=== PATIENT | female | born 1940 | race Caucasian/White ===

== ENCOUNTER 2021-03-14 09:35 | Inpatient (IN) | payer MEDICARE ==
--- NOTE | 2021-03-14 10:01 | ED ---
General Adult HPI - General Chief complaint: Shortness of Breath Stated complaint: SOB Time Seen by Provider: 03/14/21 09:36 Source: patient, EMS, RN notes reviewed, old records reviewed Mode of arrival: EMS Limitations: no limitations - History of Present Illness Initial comments: 80-year-old female presenting for evaluation of dyspnea. Patient was brought in from retirement. She is currently being treated for cellulitis of recent pacemaker site and bilateral lower extremities. She denies fever or chest pain. She states she was at an outside hospital and had pacemaker placed approximately one week ago. - Related Data Home Medications Medication Instructions Recorded Confirmed Aspirin EC [Ecotrin Low Dose] 81 mg PO DAILY@0900 03/14/21 03/14/21 Atorvastatin [Lipitor] 20 mg PO HS@209903/14/21 03/14/21 Bumetanide [Bumex] 1 mg PO BID@0900,209903/14/21 03/14/21 Clindamycin HCl 300 mg PO TID@0600,1400,2200 03/14/21 03/14/21 Clopidogrel [Plavix] 75 mg PO DAILY@0900 03/14/21 03/14/21 Collagenase [Santyl] 1 applic TOPICAL Q12H 03/14/21 03/14/21 Donepezil [Aricept] 10 mg PO HS@209903/14/21 03/14/21 HYDROcodone/APAP 5-325MG [[place] 1 tab PO Q4HR PRN 03/14/21 03/14/21 5-325] Isosorbide Mononitrate ER [Imdur] 30 mg PO DAILY@0900 03/14/21 03/14/21 Levofloxacin [Levaquin] 500 mg PO HS@209903/14/21 03/14/21 Losartan Potassium [Cozaar] 25 mg PO DAILY@0900 03/14/21 03/14/21 Magnesium Oxide 400 mg PO DAILY@0900 03/14/21 03/14/21 Potassium Chloride ER [K-Dur 10] 10 meq PO DAILY@0900 03/14/21 03/14/21 carvediloL [Coreg] 3.125 mg PO BID@0900,2100 03/14/21 03/14/21 diphenhydrAMINE [Benadryl] 25 mg PO Q6H PRN 03/14/21 03/14/21 glipiZIDE [Glucotrol] 5 mg PO DAILY@0900 03/14/21 03/14/21 Allergies Allergy/AdvReac Type Severity Reaction Status Date / Time Sulfa (Sulfonamide Allergy Anaphylaxis Verified 03/14/21 09:49 Antibiotics) Review of Systems ROS Statement: Those systems with pertinent positive or pertinent negative responses have been documented in the HPI. ROS Other: All systems not noted in ROS Statement are negative. Past Medical History Past Medical History: Diabetes Mellitus, Hypertension History of Any Multi-Drug Resistant Organisms: None Reported Past Surgical History: Pacemaker Past Psychological History: No Psychological Hx Reported Smoking Status: Never smoker Past Alcohol Use History: None Reported Past Drug Use History: None Reported General Exam Limitations: no limitations General appearance: alert, in no apparent distress Head exam: Present: atraumatic, normocephalic Eye exam: Present: normal appearance, PERRL ENT exam: Present: normal exam Neck exam: Present: normal inspection. Absent: tenderness, meningismus Respiratory exam: Present: rales. Absent: respiratory distress Cardiovascular Exam: Present: regular rate, normal rhythm, systolic murmur GI/Abdominal exam: Present: soft. Absent: distended, tenderness, guarding Extremities exam: Present: pedal edema Neurological exam: Present: alert, oriented X3 Psychiatric exam: Present: normal affect, normal mood Skin exam: Present: warm, dry Course Vital Signs 03/14/21 09:36 Temperature 97.6 F Pulse Rate 78 Respiratory 18 Rate Blood Pressure 110/69 O2 Sat by Pulse 96 Oximetry EKG Findings - EKG Comments: EKG Findings:: EKG: Sinus rhythm rate of 75 MA interval 152, QRS duration is wide at 138, QTC 504 no old for comparison. Medical Decision Making - Medical Decision Making 80-year-old female who presented with dyspnea, bilateral lower extremity swel ling. Patient had recent pacemaker placed. Chest x-ray showing concern for CHF with very large cardiomegaly. Echo has been ordered. Patient has a normal CBC, she has a hyponatremia 125. Negative troponin, elevated BNP at 14,000. Her coronavirus testing is negative. She's given IV diuresis in the emergency department. Case discussed with She will admit. Cardiology placed on consult. - Lab Data Result diagrams: 03/14/21 09:58 03/14/21 09:58 Lab Results 03/14/21 03/14/21 03/14/21 Range/Units 09:58 09:58 09:58 WBC 6.9 (3.8-10.6) k/uL RBC 4.25 (3.80-5.40) m/uL Hgb 13.0 (11.4-16.0) gm/dL Hct 39.7 (34.0-46.0) % MCV 93.5 (80.0-100.0) fL MCH 30.7 (25.0-35.0) pg MCHC 32.8 (31.0-37.0) g/dL RDW 14.7 (11.5-15.5) % Plt Count 253 (150-450) k/uL MPV 7.9 Neutrophils % 78 % Lymphocytes % 14 % Monocytes % 6 % Eosinophils % 1 % Basophils % 0 % Neutrophils # 5.3 (1.3-7.7) k/uL Lymphocytes # 0.9 L (1.0-4.8) k/uL Monocytes # 0.4 (0-1.0) k/uL Eosinophils # 0.1 (0-0.7) k/uL Basophils # 0.0 (0-0.2) k/uL PT 11.7 (9.0-12.0) sec INR 1.1 (<1.2) APTT 23.9 (22.0-30.0) sec Sodium 125 L (137-145) mmol/L Potassium 4.6 (3.5-5.1) mmol/L Chloride 92 L (98-107) mmol/L Carbon Dioxide 28 (22-30) mmol/L Anion Gap 5 mmol/L BUN 21 H (7-17) mg/dL Creatinine 0.77 (0.52-1.04) mg/dL Est GFR (CKD-EPI)AfAm 86 (>60 ml/min/1.73 sqM) Est GFR (CKD-EPI)NonAf 74 (>60 ml/min/1.73 sqM) Glucose 215 H (74-99) mg/dL Plasma Lactic Acid Clem (0.7-2.0) mmol/L Calcium 8.7 (8.4-10.2) mg/dL Total Bilirubin 1.0 (0.2-1.3) mg/dL AST 26 (14-36) U/L ALT 20 (4-34) U/L Alkaline Phosphatase 208 H (38-126) U/L Troponin I (0.000-0.034) ng/mL NT-Pro-B Natriuret Pep pg/mL Total Protein 5.6 L (6.3-8.2) g/dL Albumin 2.5 L (3.5-5.0) g/dL Coronavirus (PCR) (Not Detectd) 03/14/21 03/14/21 03/14/21 Range/Units 09:58 09:58 09:58 WBC (3.8-10.6) k/uL RBC (3.80-5.40) m/uL Hgb (11.4-16.0) gm/dL Hct (34.0-46.0) % MCV (80.0-100.0) fL MCH (25.0-35.0) pg MCHC (31.0-37.0) g/dL RDW (11.5-15.5) % Plt Count (150-450) k/uL MPV Neutrophils % % Lymphocytes % % Monocytes % % Eosinophils % % Basophils % % Neutrophils # (1.3-7.7) k/uL Lymphocytes # (1.0-4.8) k/uL Monocytes # (0-1.0) k/uL Eosinophils # (0-0.7) k/uL Basophils # (0-0.2) k/uL PT (9.0-12.0) sec INR (<1.2) APTT (22.0-30.0) sec Sodium (137-145) mmol/L Potassium (3.5-5.1) mmol/L Chloride (98-107) mmol/L Carbon Dioxide (22-30) mmol/L Anion Gap mmol/L BUN (7-17) mg/dL Creatinine (0.52-1.04) mg/dL Est GFR (CKD-EPI)AfAm (>60 ml/min/1.73 sqM) Est GFR (CKD-EPI)NonAf (>60 ml/min/1.73 sqM) Glucose (74-99) mg/dL Plasma Lactic Acid Clem 1.1 (0.7-2.0) mmol/L Calcium (8.4-10.2) mg/dL Total Bilirubin (0.2-1.3) mg/dL AST (14-36) U/L ALT (4-34) U/L Alkaline Phosphatase (38-126) U/L Troponin I 0.017 (0.000-0.034) ng/mL NT-Pro-B Natriuret Pep 44445 pg/mL Total Protein (6.3-8.2) g/dL Albumin (3.5-5.0) g/dL Coronavirus (PCR) (Not Detectd) 03/14/21 Range/Units 10:05 WBC (3.8-10.6) k/uL RBC (3.80-5.40) m/uL Hgb (11.4-16.0) gm/dL Hct (34.0-46.0) % MCV (80.0-100.0) fL MCH (25.0-35.0) pg MCHC (31.0-37.0) g/dL RDW (11.5-15.5) % Plt Count (150-450) k/uL MPV Neutrophils % % Lymphocytes % % Monocytes % % Eosinophils % % Basophils % % Neutrophils # (1.3-7.7) k/uL Lymphocytes # (1.0-4.8) k/uL Monocytes # (0-1.0) k/uL Eosinophils # (0-0.7) k/uL Basophils # (0-0.2) k/uL PT (9.0-12.0) sec INR (<1.2) APTT (22.0-30.0) sec Sodium (137-145) mmol/L Potassium (3.5-5.1) mmol/L Chloride (98-107) mmol/L Carbon Dioxide (22-30) mmol/L Anion Gap mmol/L BUN (7-17) mg/dL Creatinine (0.52-1.04) mg/dL Est GFR (CKD-EPI)AfAm (>60 ml/min/1.73 sqM) Est GFR (CKD-EPI)NonAf (>60 ml/min/1.73 sqM) Glucose (74-99) mg/dL Plasma Lactic Acid Clem (0.7-2.0) mmol/L Calcium (8.4-10.2) mg/dL Total Bilirubin (0.2-1.3) mg/dL AST (14-36) U/L ALT (4-34) U/L Alkaline Phosphatase (38-126) U/L Troponin I (0.000-0.034) ng/mL NT-Pro-B Natriuret Pep pg/mL Total Protein (6.3-8.2) g/dL Albumin (3.5-5.0) g/dL Coronavirus (PCR) Not Detected (Not Detectd) Disposition Clinical Impression: Congestive heart failure, Cardiomegaly Disposition: ADMITTED IP TO THIS HOSP Condition: Stable Is patient prescribed a controlled substance at d/c from ED?: No Referrals: Faraz Loza MD [STAFF PHYSICIAN] - 1-2 days Decision to Admit Reason: Admit from EC Decision Date: 03/14/21 Decision Time: 12:13
--- NOTE | 2021-03-14 10:40 | XR ---
EXAMINATION TYPE: XR chest 2V DATE OF EXAM: 03/14/2021 COMPARISON: NONE HISTORY: Shortness of breath TECHNIQUE: Frontal and lateral views of the chest are obtained. FINDINGS: Overlying sternal wires and mediastinal clips are present. There is significant cardiomeg glen with dual lead pacemaker/defibrillator. There are small right greater than left pleural effusions and mild interstitial edema. The osseous structures are somewhat demineralized. IMPRESSION: Findings consistent with CHF exacerbation as detailed above.
[2021-03-14 11:18] LABS: Albumin 2.5 g/dL (3.5-5.0); Basophils % (A) 0 %; Calcium 8.7 mg/dL (8.4-10.2); Eosinophils # (A) 0.1 k/uL (0-0.7); Eosinophils % (A) 1 %; HCT 39.7 % (34.0-46.0); Lymphocytes # (A) 0.9 k/uL (1.0-4.8); Lymphocytes % (A) 14 %; MCH 30.7 pg (25.0-35.0); MCHC 32.8 g/dL (31.0-37.0); MCV 93.5 fL (80.0-100.0); Mean Platelet Volume 7.9; Monocytes # (A) 0.4 k/uL (0-1.0); Monocytes % (A) 6 %; Neutrophils # (A) 5.3 k/uL (1.3-7.7); Neutrophils % (A) 78 %; Platelet Count 253 k/uL (150-450); Potassium 4.6 mmol/L (3.5-5.1); RBC 4.25 m/uL (3.80-5.40); RDW 14.7 % (11.5-15.5); Total Protein 5.6 g/dL (6.3-8.2); WBC 6.9 k/uL (3.8-10.6)
[2021-03-14 11:29] LABS: INR 1.1 (<1.2); Partial Thromboplastin Time 23.9 sec (22.0-30.0); Prothrombin Time 11.7 sec (9.0-12.0)
[2021-03-14] MEDS ORDERED: FUROSEMIDE 10 MG/ML 4 ML VIAL IV STA (11:48)
[2021-03-14] MEDS ORDERED: ACETAMINOPHEN TAB 325 MG TAB PO PRN (12:07)
[2021-03-14] MEDS ORDERED: NALOXONE 0.4 MG/ML 1 ML VIAL IV PRN (12:07)
[2021-03-14] MEDS ORDERED: MAG HYDROX/AL HYDROX/SIMETH 30 ML CUP PO PRN (12:54)
[2021-03-14] MEDS ORDERED: LACTULOSE 20 GM/30 ML CUP PO PRN (12:54)
[2021-03-14] MEDS ORDERED: CALCIUM CARBONATE 500 MG CHEWABLE PO PRN (12:54)
[2021-03-14] MEDS ORDERED: MAGNESIUM HYDROXIDE 2,400 MG/10 ML CUP PO PRN (12:54)
[2021-03-14] MEDS ORDERED: ONDANSETRON 4 MG/2 ML VIAL IVP PRN (12:54)
[2021-03-14] MEDS ORDERED: MELATONIN 3 MG TABLET PO PRN (12:54)
--- NOTE | 2021-03-14 13:57 | P.CRDCN ---
History of Present Illness History of present illness: HISTORY OF PRESENTING ILLNESS This is a pleasant 80-year-old female past medical history significant for coronary disease status post three-vessel CABG (about 10 years ago, unknown exact details), myocardial infarction, congestive heart failure, hypertension, dyslipidemia, type 2 diabetes, cardiomyopathy status post AICD BiV pacer implantation October/November 2020, bronchitis. She follows with Dr. Guo. We have been asked to see in consultation for congestive heart failure. She recently pre sented to [facility] about a week ago, with Bilateral lower extremity cellulitis, non-healing LE extremity ulcer, per daughter she underwent a procedure to clean out the wound she received increased IV fluids, her diuretic was not restarted. She was discharged to rehab after this admission. She also has Cellulitis of her pacemaker. She presents from Rehab with worsening shortness of breath, edema and orthopnea. Patient states she's had been having worsening shortness of breath since her discharge for [facility]. She is unable to lie flat to sleep at night and she also has been having worsening bilateral lower extremity and upper extremity edema. She denies any chest pain, lightheadedness, dizziness, symptoms of presyncope or syncope. She denies history of asthma or COPD. Denies history of stroke. Denies tobacco use, or alcohol use. DIAGNOSTICS EKG reveals sinus mechanism, PVC, HR 74, anterior lateral ST changes prior infarct. No prior EKG to compare Telemetry tracings indicate sinus mechanism HR 70s Chest xray congestive heart failure. Defibrillator, BiV pacemaker seen. Laboratory reviewed, sodium 125, potassium 4.6, BUN 21, serum creatinine 0.7, proBNP 14,700, troponin negative 1, COVID-19 PCR negative Current home medications include aspirin 81 mg daily, atorvastatin 20 mg nightly, Bumex 1 mg twice a day, Plavix 75 mg daily, Imdur 30 mg daily, losartan 25 mg daily, magnesium oxide 400 mg daily, potassium chloride 10 mEq daily, carvedilol 3.125 mg twice a day, glipizide, Aricept, clindamycin. REVIEW OF SYSTEMS At the time of my exam: CONSTITUTIONAL: Denies fever or chills. CARDIOVASCULAR: +shortness of breath +orthopnea +edema Denies chest pain or palp itations. RESPIRATORY: Denies cough. GASTROINTESTINAL: Denies abdominal pain, diarrhea, constipation, nausea or vomiting. MUSCULOSKELETAL: Denies myalgias. NEUROLOGIC: Denies numbness, tingling, headacbe or weakness. ENDOCRINE: Denies fatigue, weight change, polydipsia or polyurina. GENITOURINARY: Denies burning, hematuria or urgency with micturation. HEMATOLOGIC: Denies history of anemia or bleeding. PHYSICAL EXAMINATION Blood pressure 100/90 HR 77, afebrile, 98% room air CONSTITUTIONAL: No apparent distress. HEENT: Head is normocephalic. Pupils are equal, round. Sclerae anicteric. Mucous membranes of the mouth are moist. No JVD. CHEST EXAMINATION: Lungs are crackles in bases to auscultation. No chest wall tenderness is noted on palpation or with deep breathing. HEART EXAMINATION: Regular rate and rhythm. S1, S2 heard. Systolic ejection murmur at base. ABDOMEN: Soft, nontender. Positive bowel sounds. EXTREMITIES: 2-3+ bilateral lower extremity edema, 2+ bilateral upper extremity edema SKIN: Bilateral lower extremity calves and feet covered in ara bandages NEUROLOGIC EXAMINATION: Patient is awake, alert and oriented x3. ASSESSMENT Acute systolic heart failure exacerbation Ischemic cardiomyopathy s/p BiV pacemaker implantation Coronary disease status post three-vessel CABG (about 10 years ago, unknown exact details) History of myocardial infarction unknown details History of Hypertension Dyslipidemia Type 2 diabetes PLAN Obtain 2D echocardiogram Continue IV Lasix 40mg Q8hr Monitor renal function and electrolytes I/Os, daily weights Continue patient's home cardiac medications aspirin, statin, carvedilol, Plavix, Imdur, Losartan We will obtain records from [facility] and with Dr. Guo's office. Further recommendations based on clinical course Nurse Practitioner note has been reviewed, I agree with a documented findings and plan of care. Patient was seen and examined. Past Medical History Past Medical History: Diabetes Mellitus, Hypertension History of Any Multi-Drug Resistant Organisms: None Reported Past Surgical History: Pacemaker Past Psychological History: No Psychological Hx Reported Smoking Status: Never smoker Past Alcohol Use History: None Reported Past Drug Use History: None Reported Medications and Allergies Home Medications Medication Instructions Recorded Confirmed Type Aspirin EC [Ecotrin Low Dose] 81 mg PO DAILY@0900 03/14/21 03/14/21 History Atorvastatin [Lipitor] 20 mg PO HS@2100 03/14/21 03/14/21 History Bumetanide [Bumex] 1 mg PO BID@0900,2100 03/14/21 03/14/21 History Clindamycin HCl 300 mg PO TID@0600,1400,2200 03/14/21 03/14/21 History Clopidogrel [Plavix] 75 mg PO DAILY@0900 03/14/21 03/14/21 History Collagenase [Santyl] 1 applic TOPICAL Q12H 03/14/21 03/14/21 History Donepezil [Aricept] 10 mg PO HS@209903/14/21 03/14/21 History HYDROcodone/APAP 5-325MG [[place] 1 tab PO Q4HR PRN 03/14/21 03/14/21 History 5-325] Isosorbide Mononitrate ER [Imdur] 30 mg PO DAILY@0900 03/14/21 03/14/21 History Levofloxacin [Levaquin] 500 mg PO HS@209903/14/21 03/14/21 History Losartan Potassium [Cozaar] 25 mg PO DAILY@0900 03/14/21 03/14/21 History Magnesium Oxide 400 mg PO DAILY@0900 03/14/21 03/14/21 History Potassium Chloride ER [K-Dur 10] 10 meq PO DAILY@0900 03/14/21 03/14/21 History carvediloL [Coreg] 3.125 mg PO BID@0900,2100 03/14/21 03/14/21 History diphenhydrAMINE [Benadryl] 25 mg PO Q6H PRN 03/14/21 03/14/21 History glipiZIDE [Glucotrol] 5 mg PO DAILY@0900 03/14/21 03/14/21 History Allergies Allergy/AdvReac Type Severity Reaction Status Date / Time Sulfa (Sulfonamide Allergy Anaphylaxis Verified 03/14/21 09:49 Antibiotics) Physical Exam Vitals: Vital Signs Temp Pulse Resp BP Pulse Ox 03/14/21 12:55 77 18 100/90 98 03/14/21 09:36 97.6 F 78 18 110/69 96 Intake and Output 03/13/21 03/14/21 03/14/21 22:59 06:59 14:59 Other: Weight 58.967 kg Results 03/14/21 09:58 03/14/21 09:58 Cardiac Enzymes 03/14/21 03/14/21 Range/Units 09:58 09:58 AST 26 (14-36) U/L Troponin I 0.017 (0.000-0.034) ng/mL Coagulation 03/14/21 Range/Units 09:58 PT 11.7 (9.0-12.0) sec APTT 23.9 (22.0-30.0) sec CBC 03/14/21 Range/Units 09:58 WBC 6.9 (3.8-10.6) k/uL RBC 4.25 (3.80-5.40) m/uL Hgb 13.0 (11.4-16.0) gm/dL Hct 39.7 (34.0-46.0) % Plt Count 253 (150-450) k/uL Comprehensive Metabolic Panel 03/14/21 Range/Units 09:58 Sodium 125 L (137-145) mmol/L Potassium 4.6 (3.5-5.1) mmol/L Chloride 92 L (98-107) mmol/L Carbon Dioxide 28 (22-30) mmol/L BUN 21 H (7-17) mg/dL Creatinine 0.77 (0.52-1.04) mg/dL Glucose 215 H (74-99) mg/dL Calcium 8.7 (8.4-10.2) mg/dL AST 26 (14-36) U/L ALT 20 (4-34) U/L Alkaline Phosphatase 208 H (38-126) U/L Total Protein 5.6 L (6.3-8.2) g/dL Albumin 2.5 L (3.5-5.0) g/dL Current Medications Generic Name Dose Route Start Last Admin Trade Name Freq PRN Reason Stop Dose Admin Acetaminophen 650 mg 03/14/21 12:07 Acetaminophen Tab 325 Mg Tab PO Q6HR PRN Mild Pain or Fever > 100.5 Hydrocodone Bitart/Acetaminophen 1 each 03/14/21 12:52 Hydrocodone/Apap 5-325mg 1 Each Tab PO Q4HR PRN Pain Al Hydroxide/Mg Hydroxide 15 ml 03/14/21 12:54 Mag Hydrox/Al Hydrox/Simeth 30 Ml Cup PO Q6HR PRN Indigestion Alprazolam 0.25 mg 03/14/21 12:54 Alprazolam 0.25 Mg Tab PO Q6HR PRN Anxiety Aspirin 81 mg 03/15/21 09:00 Aspirin 81 Mg PO DAILY@0900 [facility] Atorvastatin Calcium 20 mg 03/14/21 21:00 Atorvastatin 20 Mg Tab PO HS@2100 [facility] Calcium Carbonate/Glycine 1,000 mg 03/14/21 12:54 Calcium Carbonate 500 Mg Chewable PO Q4HR PRN Dyspepsia Carvedilol 3.125 mg 03/14/21 21:00 Carvedilol 3.125 Mg Tab PO BID@0900,2100 [facility] Clopidogrel Bisulfate 75 mg 03/15/21 09:00 Clopidogrel 75 Mg Tab PO DAILY@0900 [facility] Collagenase 1 applic 03/14/21 21:00 Collagenase 250 Unit/Gm Ointment 30 Gm Tube TOPICAL Q12HR [facility] Protocol Donepezil HCl 10 mg 03/14/21 21:00 Donepezil 10 Mg Tab PO HS@2100 [facility] Furosemide 40 mg 03/14/21 16:00 Furosemide 10 Mg/Ml 4 Ml Vial IV Q8HR [facility] Insulin Aspart 0 unit 03/14/21 13:00 Insulin Aspart (Novolog) 100 Unit/Ml Vial SQ ACHS [facility] Protocol Isosorbide Mononitrate 30 mg 03/15/21 09:00 Isosorbide Mononitrate Er 30 Mg Tab.Er.24h PO DAILY@0900 [facility] Lactulose 20 gm 03/14/21 12:54 Lactulose 20 Gm/30 Ml Cup PO DAILY PRN Constipation Levofloxacin 500 mg 03/14/21 21:00 Levofloxacin 500 Mg Tab PO 03/15/21 21:01 HS@2100 [facility] Losartan Potassium 25 mg 03/15/21 09:00 Losartan 25 Mg Tab PO DAILY [facility] Magnesium Hydroxide 2,400 mg 03/14/21 12:54 Magnesium Hydroxide 2,400 Mg/10 Ml Cup PO DAILY PRN Constipation Magnesium Oxide 400 mg 03/15/21 09:00 Magnesium Oxide 400 Mg Tab PO DAILY@0900 [facility] Melatonin 3 mg 03/14/21 12:54 Melatonin 3 Mg Tablet PO HS PRN Insomnia Naloxone HCl 0.2 mg 03/14/21 12:07 Naloxone 0.4 Mg/Ml 1 Ml Vial IV Q2M PRN Opioid Reversal Ondansetron HCl 4 mg 03/14/21 12:54 Ondansetron 4 Mg/2 Ml Vial IVP Q8HR PRN Nausea And Vomiting Potassium Chloride 10 meq 03/15/21 09:00 Potassium Chloride Er 10 Meq Tab.Er.Prt PO DAILY@0900 [facility] Intake and Output 03/13/21 03/14/21 03/14/21 22:59 06:59 14:59 Other: Weight 58.967 kg Patient Weight 03/15/21 06:59 Weight 58.967 kg 03/14/21 09:58 03/14/21 09:58
[2021-03-14] MEDS ORDERED: CLINDAMYCIN HCL 300 MG PO SCH (14:00)
--- NOTE | 2021-03-14 17:12 | P.HPIM ---
History of Present Illness H&P Date: 03/14/21 Chief Complaint: Short of breath This is a pleasant 80-year-old patient who follows with cardiologistDr Schultz. Patient's currently a resident of [facility]. Chronic stable medical conditions include bulbi hypertension, pacemaker, diabetes, coronary artery disease with a bypass over 10 years ago. Patient was discharged from [facility] 5 days ago. She was therefore a left leg wound that was I&D 8 and discharged with clindamycin and Levaquin for 7 days. Patient has slight cognitive impairment and not too good for details. Her daughter is at the bedside. She was noticed to be increasingly short of breath. Significant edema in the lower extremity. Minimal cough. Decreased appetite. Patient always sits up and sleep. Patient has not had a bowel movement for last 7 days. Patient is rather tired. Review of systems: GEN.: Tired, decrease appetite EYES: None HEENT: None NECK: None RESPIRATORY: As above CARDIOVASCULAR: No chest pain GASTROINTESTINAL: [No BM for close to 7 days GENITOURINARY: None MUSCULOSKELETAL: Joint pains LYMPHATICS: None HEMATOLOGICAL: None PSYCHIATRY: Forgetful NEUROLOGICAL: None Past medical history to include: Pulmonary hypertension secondary, pacemaker, diabetes, CAD, left leg wound, cognitive impairment Social history: Currently getting rehab at [facility]. No smoking and no alcohol. Family history: Reviewed, noncontributory to presentation Physical examination: VITAL SIGNS: 97.6, 78, 18, 110/69, 96% room air GENERAL: 23.8, sitting up in bed, short of breath awake tired. EYES: Pupils equal. Conjunctiva normal. HEENT: External appearance of nose and ears normal, oral cavity grossly normal. NECK: JVDt raised; masses not palpable. HEART: [First and second heart sounds are normal; significant edema up to the thighs LUNGS:[ Respiratory rate increase; basal crackles. ABDOMEN: Soft, distended nontender, liver spleen not palpable, no masses palpable. PSYCH: Able to answer simple questions; mood and affect normal. MUSCULAR skeletal: Evidence of OA EXTREMITY: Wound or lower extremity. For dressing NEUROLOGICAL: Cranial nerves grossly intact; no facial asymmetry, power and sensation grossly intact. LYMPHATICS: No lymph nodes palpable in the axilla and neck INVESTIGATIONS, reviewed in the clinical context: WBC 6.9 hemoglobin 13 platelets 253 sodium 125 potassium 4.6 BUN 21 creatinine 0 .77 Albumin 2.5 proBNP 54704 Coronavirus [PCR]:not detected EKG tracing personally reviewed by me-no sinus rhythm, poor R-wave progression, intraventricular block and nonspecific ST segment changes Chest x-ray film personally reviewed by me-severe cardiomegaly suggestive of pericardial effusion, left pleural effusion Assessment and plan: -Acute on chronic congestive heart failure exacerbation. EF not known. From ischemic cardiomyopathy IV Lasix 40 mg every 8. Strict I's and O's. Daily weights. Sodium restriction. 2-D echocardiogram. Consult cardiology -Left pleural effusion secondary to CHF IV Lasix -CAD with a prior history of coronary bypass Aspirin, Lipitor, Coreg -Mild cognitive impairment likely from Alzheimer's dementia Follow clinically -Secondary pulmonary hypertension secondary to CHF Follow clinically -Permanent pacemaker -Diabetes mellitus type 2 on oral hypoglycemic Hold glyburide. Follow Accu-Cheks. -Left lower extremity wounds. On the left leg. Recently I indeed and currently on clindamycin and Levaquin. We'll consult ID for the same. IV Lasix 40 mg daily 8. Resume clindamycin and Levaquin. Home medications to be resumed. Strict I's and O's. Consult cardiology 90. Care was discussed with the patient and daughter the bedside. Questions answered. Given the complexity and severity of patient's condition expect the patient to be in the hospital at least for 2 overnights Past Medical History Past Medical History: Diabetes Mellitus, Hypertension History of Any Multi-Drug Resistant Organisms: None Reported Past Surgical History: Pacemaker Past Psychological History: No Psychological Hx Reported Smoking Status: Never smoker Past Alcohol Use History: None Reported Past Drug Use History: None Reported Medications and Allergies Home Medications Medication Instructions Recorded Confirmed Type Aspirin EC [Ecotrin Low Dose] 81 mg PO DAILY@0900 03/14/21 03/14/21 History Atorvastatin [Lipitor] 20 mg PO HS@209903/14/21 03/14/21 History Bumetanide [Bumex] 1 mg PO BID@0900,2100 03/14/21 03/14/21 History Clindamycin HCl 300 mg PO TID@0600,1400,2200 03/14/21 03/14/21 History Clopidogrel [Plavix] 75 mg PO DAILY@0900 03/14/21 03/14/21 History Collagenase [Santyl] 1 applic TOPICAL Q12H 10/26/21 10/26/21 History Donepezil [Aricept] 10 mg PO HS@2100 03/14/21 03/14/21 History HYDROcodone/APAP 5-325MG [Dinosaur 1 tab PO Q4HR PRN 03/14/21 03/14/21 History 5-325] Isosorbide Mononitrate ER [Imdur] 30 mg PO DAILY@0900 03/14/21 03/14/21 History Levofloxacin [Levaquin] 500 mg PO HS@2100 03/14/21 03/14/21 History Losartan Potassium [Cozaar] 25 mg PO DAILY@0900 03/14/21 03/14/21 History Magnesium Oxide 400 mg PO DAILY@0900 03/14/21 03/14/21 History Potassium Chloride ER [K-Dur 10] 10 meq PO DAILY@0900 03/14/21 03/14/21 History carvediloL [Coreg] 3.125 mg PO BID@0900,209903/14/21 03/14/21 History diphenhydrAMINE [Benadryl] 25 mg PO Q6H PRN 03/14/21 03/14/21 History glipiZIDE [Glucotrol] 5 mg PO DAILY@0900 03/14/21 03/14/21 History Allergies Allergy/AdvReac Type Severity Reaction Status Date / Time Sulfa (Sulfonamide Allergy Anaphylaxis Verified 03/14/21 09:49 Antibiotics) Physical Exam Vitals: Vital Signs Temp Pulse Resp BP Pulse Ox 03/14/21 16:00 74 18 127/71 96 03/14/21 12:55 77 18 100/90 98 03/14/21 09:36 97.6 F 78 18 110/69 96 Intake and Output 03/14/21 03/14/21 03/14/21 06:59 14:59 22:59 Other: Weight 58.967 kg Results CBC & Chem 7: 03/14/21 09:58 03/14/21 09:58 Labs: Abnormal Lab Results - Last 24 Hours (Table) 03/14/21 03/14/21 Range/Units 09:58 09:58 Lymphocytes # 0.9 L (1.0-4.8) k/uL Sodium 125 L (137-145) mmol/L Chloride 92 L (98-107) mmol/L BUN 21 H (7-17) mg/dL Glucose 215 H (74-99) mg/dL Alkaline Phosphatase 208 H (38-126) U/L Total Protein 5.6 L (6.3-8.2) g/dL Albumin 2.5 L (3.5-5.0) g/dL
[2021-03-14] MEDS ORDERED: LACTULOSE 20 GM/30 ML CUP PO ONE (17:15)
[2021-03-14] MEDS: INSULIN ASPART (NovoLOG) 100 UNIT/ML VIAL SQ SCH ×3 (17:43→20:13)
[2021-03-14] MEDS: FUROSEMIDE 10 MG/ML 4 ML VIAL IV SCH ×2 (19:15→22:42)
[2021-03-14 19:50] LABS: Glucose,Whole Blood 210 mg/dL (75-99)
[2021-03-14] MEDS: ATORVASTATIN 20 MG TAB PO SCH (20:13)
[2021-03-14] MEDS: carvediloL 3.125 MG TAB PO SCH (20:13)
[2021-03-14] MEDS: DONEPEZIL 10 MG TAB PO SCH (20:13)
[2021-03-14] MEDS: HYDROcodone/APAP 5-325MG 1 EACH TAB PO PRN (20:14)
[2021-03-14] MEDS ORDERED: FUROSEMIDE 10 MG/ML 4 ML VIAL IV SCH (21:00)
[2021-03-14] MEDS ORDERED: LEVOFLOXACIN 500 MG TAB PO SCH (21:00)
[2021-03-14] MEDS: COLLAGENASE 250 UNIT/GM OINTMENT 30 GM TUBE TOPICAL SCH (22:03)
[2021-03-15] MEDS: HYDROcodone/APAP 5-325MG 1 EACH TAB PO PRN ×3 (02:39→15:37)
[2021-03-15 06:16] LABS: Glucose,Whole Blood 124 mg/dL (75-99)
[2021-03-15] MEDS: INSULIN ASPART (NovoLOG) 100 UNIT/ML VIAL SQ SCH ×4 (06:24→20:50)
[2021-03-15 06:35] LABS: Calcium 8.8 mg/dL (8.4-10.2); Potassium 4.2 mmol/L (3.5-5.1)
--- NOTE | 2021-03-15 08:44 | ECHOF ---
Referral Reason:CHF, cardiomegaly MEASUREMENTS -------- HEIGHT: 157.5 cm WEIGHT: 59.0 kg BP: 110/69 RVIDd: 4.0 cm (< 3.3) IVSd: 1.2 cm (0.6 - 1.1) LVIDd: 5.8 cm (3.9 - 5.3) LVPWd: 1.1 cm (0.6 - 1.1) IVSs: 1.3 cm LVIDs: 4.9 cm LVPWs: 1.8 cm LA Diam: 4.4 cm (2.7 - 3.8) LAESV Index (A-L): 36.30 ml/m Ao Diam: 3.0 cm (2.0 - 3.7) AV Cusp: 1.6 cm (1.5 - 2.6) MV EXCURSION: 11.106 mm (> 18.000) MV EF SLOPE: 36 mm/s (70 - 150) EPSS: 2.4 cm MV E Marcel: 1.07 m/s MV DecT: 167 ms MV A Marcel: 0.97 m/s MV E/A Ratio: 1.11 AR PHT: 536 ms RAP: 5.00 mmHg RVSP: 45.38 mmHg FINDINGS -------- Paced rhythm. This was a technically good study. The left ventricular size is normal. There is borderline concentric left ventricular hypertrophy. Overall left ventricular systolic function is severely impaired with, an EF between 20 - 25 %. The right ventricle is moderately enlarged. LA is moderately dilated 34-39 ml/m2 The right atrium is normal in size. Interatrial and interventricular septum intact. There is mild aortic valve sclerosis. There is moderate aortic regurgitation. The mitral valve leaflets are mildly thickened. Mild mitral annular calcification present. Severe mitral regurgitation is present. Severe tricuspid regurgitation present. There is mild to moderate pulmonary hypertension. The rig ht ventricular systolic pressure, as measured by Doppler, is 45.38mmHg. Moderate pulmonic regurgitation. The aortic root size is normal. Normal inferior vena cava with normal inspiratory collapse consistent with estimated right atrial pre ssure of 5 mmHg. There is no pericardial effusion. CONCLUSIONS -------- 1. The left ventricular size is normal. 2. There is borderline concentric left ventricular hypertrophy. 3. Overall left ventricular systolic function is severely impaired with, an EF between 20 - 25 %. 4. The right ventricle is moderately enlarged. 5. LA is moderately dilated 34-39 ml/m2 6. There is mild aortic valve sclerosis. 7. There is moderate aortic regurgitation. 8. The mitral valve leaflets are mildly thickened. 9. Mild mitral annular calcification present. 10. Severe mitral regurgitation is present. 11. Severe tricuspid regurgitation present. 12. There is mild to moderate pulmonary hypertension. 13. The right ventricular systolic pressure, as measured by Doppler, is 45.38mmHg. 14. Moderate pulmonic regurgitation. 15. There is no pericardial effusion. PHOTO MASK PROCESSOR: Kathy Villela RDCS
[2021-03-15] MEDS: carvediloL 3.125 MG TAB PO SCH ×2 (09:06→20:46)
[2021-03-15] MEDS: ASPIRIN 81 MG PO SCH (09:06)
[2021-03-15] MEDS: POTASSIUM CHLORIDE ER 10 MEQ TAB.ER.PRT PO SCH (09:06)
[2021-03-15] MEDS: CLOPIDOGREL 75 MG TAB PO SCH (09:06)
[2021-03-15] MEDS: FUROSEMIDE 10 MG/ML 4 ML VIAL IV SCH ×3 (09:06→23:23)
[2021-03-15] MEDS: LOSARTAN 25 MG TAB PO SCH (09:06)
[2021-03-15] MEDS: MAGNESIUM OXIDE 400 MG TAB PO SCH (09:06)
[2021-03-15] MEDS: ISOSORBIDE MONONITRATE ER 30 MG TAB.ER.24H PO SCH (09:06)
[2021-03-15] MEDS: COLLAGENASE 250 UNIT/GM OINTMENT 30 GM TUBE TOPICAL SCH ×2 (09:07→20:53)
[2021-03-15 11:17] VITALS: BMI 30.3
[2021-03-15 11:31] LABS: Glucose,Whole Blood 188 mg/dL (75-99)
[2021-03-15] MEDS: NYSTATIN 100,000 UNIT/GM POWD 15 GM TOPICAL SCH ×2 (12:04→20:52)
[2021-03-15] MEDS: NYSTATIN 100,000UNIT/GM CREAM 30 GM TUBE TOPICAL SCH ×2 (12:04→20:52)
--- NOTE | 2021-03-15 12:42 | P.PN ---
Subjective This is a pleasant 80-year-old female past medical history significant for coronary disease status post three-vessel CABG (about 10 years ago, unknown exact details), myocardial infarction, congestive heart failure, hypertension, dyslipidemia, type 2 diabetes, ischemic cardiomyopathy status post BiV ICD pacer implantation November 22, 2020, bronchitis. She follows with Dr. Guo. We have been asked to see in consultation for congestive heart failure. She presents from Rehab with worsening shortness of breath, edema and orthopnea. Records obtained from [facility] patient has a known EF of 25%. Patient seen and examined at bedside, she states her breathing has improved. Echocardiogram revealed an EF of 2025 percent, moderate aortic regurgitation, severe mitral regurgitation, severe tricuspid location, mild to moderate pulmonary hypertension with an RVSP of 45 mmHg, moderate pulmonic regurgitation. Patient with 1.2. Urine output over the past 24 hours. She is currently maintained on IV Lasix 40 mg Q8hr, aspirin milligrams daily, atorvastatin 20 mg daily, carvedilol 3.125 mg twice a day, Plavix 75 mg daily, Imdur 30 mg daily, losartan 25 mg daily, potassium chloride 10meq daily. Labs reviewed patient sodium 128, potassium 4.2, BUN 19, serum creatinine 0.81. PHYSICAL EXAMINATION Blood pressure 112/69, heart 76, afebrile maintaining oxygen saturations 96% on room air CONSTITUTIONAL: No apparent distress. HEENT: Neck Supple. No JVD. CHEST EXAMINATION: Lungs are diminished in bases, mild crackles to auscultation. No chest wall tenderness is noted on palpation or with deep breathing. HEART EXAMINATION: Regular rate and rhythm. S1, S2 heard. Systolic ejection murmur at base. ABDOMEN: Soft, nontender. Positive bowel sounds. EXTREMITIES: 2+ bilateral lower extremity edema, 2+ bilateral upper extremity edema SKIN: Bilateral lower extremity calves and feet covered in ara bandages NEUROLOGIC EXAMINATION: Patient is awake, alert and oriented x2 ASSESSMENT Acute systolic heart failure exacerbation Ischemic cardiomyopathy s/p BiV pacemaker implantation 11/22/2020, known EF 25% Coronary disease status post three-vessel CABG (about 10 years ago, unknown exact details) History of myocardial infarction unknown details History of Hypertension Dyslipidemia Type 2 diabetes Bilateral lower extremity cellulitis Mitral valve insufficiency Moderate to severe pulmonary hypertension PLAN Continue IV Lasix 40mg Q8hr Monitor renal function and electrolytes I/Os, daily weights Continue patient's home cardiac medications aspirin, statin, carvedilol, Plavix, Imdur, Losartan Patient would benefit from starting a SGLT2 inhibitor Jardiance due to symptomatic heart failure. These medications are not available in the hospital currently, recommend starting as outpatient. Further recommendations based on clinical course Nurse Practitioner note has been reviewed, I agree with a documented findings and plan of care. Patient was seen and examined. Objective - Vital Signs Vital signs: Vital Signs Temp 97.6 F 03/15/21 11:46 Pulse 76 03/15/21 11:46 Resp 18 03/15/21 11:46 BP 112/69 03/15/21 11:46 Pulse Ox 96 03/15/21 11:46 Intake & Output 03/14/21 03/15/21 03/15/21 18:59 06:59 18:59 Intake Total 10 240 250 Output Total 1200 Balance 10 -960 250 Weight 58.967 kg 75.3 kg 75.3 kg Intake: IV 10 10 Invasive Line 1 10 10 Oral 240 240 Output: Urine 1200 Other: Voiding Method External Catheter External Catheter External Catheter # Voids 1 # Bowel Movements 1 1 - Labs CBC & Chem 7: 03/14/21 09:58 03/15/21 05:53 Labs: Abnormal Lab Results - Last 24 Hours (Table) 03/14/21 03/15/21 03/15/21 Range/Units 19:47 05:53 06:14 Sodium 128 L (137-145) mmol/L Chloride 94 L (98-107) mmol/L BUN 19 H (7-17) mg/dL Glucose 107 H (74-99) mg/dL POC Glucose (mg/dL) 210 H 124 H (75-99) mg/dL 03/15/21 Range/Units 11:29 Sodium (137-145) mmol/L Chloride (98-107) mmol/L BUN (7-17) mg/dL Glucose (74-99) mg/dL POC Glucose (mg/dL) 188 H (75-99) mg/dL
[2021-03-15 16:33] LABS: Glucose,Whole Blood 134 mg/dL (75-99)
--- NOTE | 2021-03-15 17:15 | P.PN ---
Progress Note - Text Progress Note Date: 03/15/21 Chief Complaint: Short of breath This is a pleasant 80-year-old patient who follows with cardiologistDr Schultz. Patient's currently a resident of [facility]. Chronic stable medical conditions include bulbi hypertension, pacemaker, diabetes, coronary artery disease with a bypass over 10 years ago. Patient was discharged from [facility] 5 days ago. She was therefore a left leg wound that was I&D 8 and discharged with clindamycin and Levaquin for 7 days. Patient has slight cognitive impairment and not too good for details. Her daughter is at the bedside. She was noticed to be increasingly short of breath. Significant edema in the lower extremity. Minimal cough. Decreased appetite. Patient always sits up and sleep. Patient has not had a bowel movement for last 7 days. Patient is rather tired. Admitted with CHF exacerbation, left pleural effusion. Started on IV Lasix. EF 20-25%. 03/15/2021: Sitting up in a recliner. Breathing a bit better. On IV Lasix. Good urine output. Some pain in the left lower extremity wound site. Does have [place] for the same. Discussed with the patient and daughter at length to avoid taking more narcotics. Review of systems: Was done for constitutional, cardiovascular, GI, pulmonary. relevant finding as above Active Medications Acetaminophen (Acetaminophen Tab 325 Mg Tab) 650 mg PO Q6HR PRN PRN Reason: Mild Pain or Fever > 100.5 Hydrocodone Bitart/Acetaminophen (Hydrocodone/Apap 5-325mg 1 Each Tab) 1 each PO Q4HR PRN PRN Reason: Pain Last Admin: 03/15/21 15:37 Dose: 1 each Documented by: Al Hydroxide/Mg Hydroxide (Mag Hydrox/Al Hydrox/Simeth 30 Ml Cup) 15 ml PO Q6HR PRN PRN Reason: Indigestion Alprazolam (Alprazolam 0.25 Mg Tab) 0.25 mg PO Q6HR PRN PRN Reason: Anxiety Aspirin (Aspirin 81 Mg) 81 mg PO DAILY@0900 [facility] Last Admin: 03/15/21 09:06 Dose: 81 mg Documented by: Atorvastatin Calcium (Atorvastatin 20 Mg Tab) 20 mg PO HS@2100 [facility] Last Admin: 03/14/21 20:13 Dose: 20 mg Documented by: Calcium Carbonate/Glycine (Calcium Carbonate 500 Mg Chewable) 1,000 mg PO Q4HR PRN PRN Reason: Dyspepsia Carvedilol (Carvedilol 3.125 Mg Tab) 3.125 mg PO BID@0900,2099 [facility] Last Admin: 03/15/21 09:06 Dose: 3.125 mg Documented by: Clopidogrel Bisulfate (Clopidogrel 75 Mg Tab) 75 mg PO DAILY@0900 [facility] Last Admin: 03/15/21 09:06 Dose: 75 mg Documented by: Collagenase (Collagenase 250 Unit/Gm Ointment 30 Gm Tube) 1 applic TOPICAL Q12HR [facility]; Protocol Last Admin: 03/15/21 09:07 Dose: 1 applic Documented by: Donepezil HCl (Donepezil 10 Mg Tab) 10 mg PO HS@2099 [facility] Last Admin: 03/14/21 20:13 Dose: 10 mg Documented by: Furosemide (Furosemide 10 Mg/Ml 4 Ml Vial) 40 mg IV Q8HR [facility] Last Admin: 03/15/21 15:41 Dose: 40 mg Documented by: Insulin Aspart (Insulin Aspart (Novolog) 100 Unit/Ml Vial) 0 unit SQ [facility]; Protocol Last Admin: 03/15/21 12:05 Dose: 2 unit Documented by: Isosorbide Mononitrate (Isosorbide Mononitrate Er 30 Mg Tab.Er.24h) 30 mg PO DAILY@899 [facility] Last Admin: 03/15/21 09:06 Dose: 30 mg Documented by: Lactulose (Lactulose 20 Gm/30 Ml Cup) 20 gm PO DAILY PRN PRN Reason: Constipation Levofloxacin (Levofloxacin 250 Mg Tab) 250 mg PO HS@2099 [facility] Stop: 03/16/21 23:00 Losartan Potassium (Losartan 25 Mg Tab) 25 mg PO DAILY [facility] Last Admin: 03/15/21 09:06 Dose: 25 mg Documented by: Magnesium Hydroxide (Magnesium Hydroxide 2,400 Mg/10 Ml Cup) 2,400 mg PO DAILY PRN PRN Reason: Constipation Magnesium Oxide (Magnesium Oxide 400 Mg Tab) 400 mg PO DAILY@09 [facility] Last Admin: 03/15/21 09:06 Dose: 400 mg Documented by: Melatonin (Melatonin 3 Mg Tablet) 3 mg PO HS PRN PRN Reason: Insomnia Last Admin: 03/14/21 20:19 Dose: 3 mg Documented by: Naloxone HCl (Naloxone 0.4 Mg/Ml 1 Ml Vial) 0.2 mg IV Q2M PRN PRN Reason: Opioid Reversal Nystatin (Nystatin 100,000unit/Gm Cream 30 Gm Tube) 1 applic TOPICAL BID [facility]; Protocol Last Admin: 03/15/21 12:04 Dose: 1 applic Documented by: Nystatin (Nystatin 100,000 Unit/Gm Powd 15 Gm) 1 applic TOPICAL BID [facility]; Protocol Last Admin: 03/15/21 12:04 Dose: 1 applic Documented by: Ondansetron HCl (Ondansetron 4 Mg/2 Ml Vial) 4 mg IVP Q8HR PRN PRN Reason: Nausea And Vomiting Potassium Chloride (Potassium Chloride Er 10 Meq Tab.Er.Prt) 10 meq PO DAILY@0900 [facility] Last Admin: 03/15/21 09:06 Dose: 10 meq Documented by: Past medical history to include: Pulmonary hypertension secondary, pacemaker, diabetes, CAD, left leg wound, cognitive impairment Social history: Currently getting rehab at [facility]. No smoking and no alcohol. Family history: Reviewed, noncontributory to presentation Physical examination: VITAL SIGNS: 97.6, 76, 18, 1 12 x 69, 96% room air GENERAL: Sitting up in a recliner, a bit less short of breath, more awake EYES: Pupils equal. Conjunctiva normal. HEENT: External appearance of nose and ears normal, oral cavity grossly normal. NECK: JVDt raised; masses not palpable. HEART: [First and second heart sounds are normal; significant edema up to the thighs LUNGS:[ Respiratory rate increase; basal crackles. ABDOMEN: Soft, distended nontender, liver spleen not palpable, no masses palpable. PSYCH: Able to answer simple questions; mood and affect normal. MUSCULAR skeletal: Evidence of OA EXTREMITY: Wound of lower extremity. With dressing INVESTIGATIONS, reviewed in the clinical context: March 15: Sodium 128 potassium 4.2 BUN 19 creatinine 0.81 2-D echocardiogram: EF 20-25%. Moderate aortic regurgitation. Severe mitral regurgitation. Severe tricuspid regurgitation. Moderate pulmonary hypertension. WBC 6.9 hemoglobin 13 platelets 253 sodium 125 potassium 4.6 BUN 21 creatinine 0.77 Albumin 2.5 proBNP 05846 Coronavirus [PCR]:not detected EKG tracing personally reviewed by me-no sinus rhythm, poor R-wave progression, intraventricular block and nonspecific ST segment changes Chest x-ray film personally reviewed by me-severe cardiomegaly suggestive of pericardial effusion, left pleural effusion Assessment and plan: -Acute on chronic congestive heart failure exacerbation. Systolic dysfunction EF 20-25% From ischemic cardiomyopathy: Slow to respond IV Lasix 40 mg every 8. Strict I's and O's. Daily weights. Sodium restriction. Follow with cardiology. Add Aldactone -Left pleural effusion secondary to CHF IV Lasix -Moderate aortic regurgitation, severe mitral regurgitation, severe tricuspid regurgitation Follow clinically -Secondary pulmonary hypertension secondary to CHF Follow clinically -CAD with a prior history of coronary bypass Aspirin, Lipitor, Coreg -Mild cognitive impairment likely from Alzheimer's dementia Follow clinically -Secondary pulmonary hypertension secondary to CHF Follow clinically -Permanent pacemaker -Diabetes mellitus type 2 on oral hypoglycemic Hold glyburide. Follow Accu-Cheks. -Hyponatremia Fluid restriction. Cutback on free fluid. -Left lower extremity wounds. On the left leg. Recently IND and currently on clindamycin and Levaquin. Follow with ID Continue IV Lasix 40 mg daily , clindamycin and Levaquin. Wound care per ID. Add Aldactone. Care was discussed with the patient and daughter the bedside.
[2021-03-15] MEDS: SPIRONOLACTONE 25 MG TAB PO SCH (17:53)
[2021-03-15 20:07] LABS: Glucose,Whole Blood 166 mg/dL (75-99)
[2021-03-15] MEDS: DONEPEZIL 10 MG TAB PO SCH (20:46)
[2021-03-15] MEDS: ATORVASTATIN 20 MG TAB PO SCH (20:47)
[2021-03-15] MEDS: LEVOFLOXACIN 250 MG TAB PO SCH (20:47)
[2021-03-16 05:58] LABS: Glucose,Whole Blood 99 mg/dL (75-99)
[2021-03-16] MEDS: INSULIN ASPART (NovoLOG) 100 UNIT/ML VIAL SQ SCH ×4 (06:04→20:49)
[2021-03-16 07:05] LABS: African American GFR (CKD) >90 (>60 ml/min/1.73 sqM); Anion Gap 8 mmol/L; Blood Urea Nitrogen 20 mg/dL (7-17); Carbon Dioxide 25 mmol/L (22-30); Chloride 95 mmol/L (98-107); Glucose 102 mg/dL (74-99); Magnesium 1.8 mg/dL (1.6-2.3); Non-African American GFR(CKD) 79 (>60 ml/min/1.73 sqM); Potassium 4.6 mmol/L (3.5-5.1); Sodium 128 mmol/L (137-145)
--- NOTE | 2021-03-16 08:32 | XR ---
EXAMINATION TYPE: XR chest 2V DATE OF EXAM: 03/16/2021 COMPARISON: Chest x-ray 2 03/14/2021 HISTORY: Congestive heart failure follow-up TECHNIQUE: Frontal and lateral views of the chest are obtained. FINDINGS: Findings are similar. There is blunting the posterior costophrenic angles, patient is post median sternotomy. Patient shows coronary artery stent, coronary artery calcification. Heart is enla rged. Generators present in left pectoral region, leads in right atrium and ventricle, coronary sinus . No evident pneumothorax. Patient is rotated. Interstitium and central vascularity mildly prominent. Arthropathy noted in the right shoulder. Aorta is dense. IMPRESSION: There may be a component of pulmonary venous hypertension and interstitial edema, basila r atelectasis versus edema, difficult to exclude pneumonia. Cardiomegaly. Suspect pleural effusion is present on the right.
[2021-03-16] MEDS: NYSTATIN 100,000UNIT/GM CREAM 30 GM TUBE TOPICAL SCH ×2 (08:58→20:50)
[2021-03-16] MEDS: SPIRONOLACTONE 25 MG TAB PO SCH (08:58)
[2021-03-16] MEDS: carvediloL 3.125 MG TAB PO SCH (08:58)
[2021-03-16] MEDS: CLOPIDOGREL 75 MG TAB PO SCH (08:58)
[2021-03-16] MEDS: MAGNESIUM OXIDE 400 MG TAB PO SCH (08:58)
[2021-03-16] MEDS: ISOSORBIDE MONONITRATE ER 30 MG TAB.ER.24H PO SCH (08:58)
[2021-03-16] MEDS: POTASSIUM CHLORIDE ER 10 MEQ TAB.ER.PRT PO SCH (08:58)
[2021-03-16] MEDS: LOSARTAN 25 MG TAB PO SCH (08:58)
[2021-03-16] MEDS: ASPIRIN 81 MG PO SCH (08:58)
[2021-03-16] MEDS: FUROSEMIDE 10 MG/ML 4 ML VIAL IV SCH ×2 (08:58→20:49)
[2021-03-16] MEDS: NYSTATIN 100,000 UNIT/GM POWD 15 GM TOPICAL SCH ×2 (08:59→20:50)
[2021-03-16] MEDS: COLLAGENASE 250 UNIT/GM OINTMENT 30 GM TUBE TOPICAL SCH ×2 (09:00→20:10)
--- NOTE | 2021-03-16 11:01 | P.PN ---
Progress Note - Text Progress Note Date: 03/16/21 Chief Complaint: Short of breath This is a pleasant 80-year-old patient who follows with cardiologistDr Schultz. Patient's currently a resident of [facility]. Chronic stable medical conditions include bulbi hypertension, pacemaker, diabetes, coronary artery disease with a bypass over 10 years ago. Patient was discharged from [facility] 5 days ago. She was therefore a left leg wound that was I&D 8 and discharged with clindamycin and Levaquin for 7 days. Patient has slight cognitive impairment and not too good for details. Her daughter is at the bedside. She was noticed to be increasingly short of breath. Significant edema in the lower extremity. Minimal cough. Decreased appetite. Patient always sits up and sleep. Patient has not had a bowel movement for last 7 days. Patient is rather tired. Admitted with CHF exacerbation, left pleural effusion. Started on IV Lasix. EF 20-25%. 03/15/2021: Sitting up in a recliner. Breathing a bit better. On IV Lasix. Good urine output. Some pain in the left lower extremity wound site. Does have [place] for the same. Discussed with the patient and daughter at length to avoid taking more narcotics. 03/16/2021: Breathing better. Decreased to IV Lasix 40 mg every 12. Eating about 25%-50%. Review of systems: Was done for constitutional, cardiovascular, GI, pulmonary. relevant finding as above Active Medications Acetaminophen (Acetaminophen Tab 325 Mg Tab) 650 mg PO Q6HR PRN PRN Reason: Mild Pain or Fever > 100.5 Last Admin: 03/16/21 09:12 Dose: 650 mg Documented by: Hydrocodone Bitart/Acetaminophen (Hydrocodone/Apap 5-325mg 1 Each Tab) 1 each PO Q4HR PRN PRN Reason: Pain Last Admin: 03/15/21 15:37 Dose: 1 each Documented by: Al Hydroxide/Mg Hydroxide (Mag Hydrox/Al Hydrox/Simeth 30 Ml Cup) 15 ml PO Q6HR PRN PRN Reason: Indigestion Alprazolam (Alprazolam 0.25 Mg Tab) 0.25 mg PO Q6HR PRN PRN Reason: Anxiety Aspirin (Aspirin 81 Mg) 81 mg PO DAILY@0900 [facility] Last Admin: 03/16/21 08:58 Dose: 81 mg Documented by: Atorvastatin Calcium (Atorvastatin 20 Mg Tab) 20 mg PO HS@2100 [facility] Last Admin: 03/15/21 20:47 Dose: 20 mg Documented by: Calcium Carbonate/Glycine (Calcium Carbonate 500 Mg Chewable) 1,000 mg PO Q4HR PRN PRN Reason: Dyspepsia Carvedilol (Carvedilol 6.25 Mg Tab) 6.25 mg PO BID@0900,2100 [facility] Clopidogrel Bisulfate (Clopidogrel 75 Mg Tab) 75 mg PO DAILY@0900 [facility] Last Admin: 03/16/21 08:58 Dose: 75 mg Documented by: Collagenase (Collagenase 250 Unit/Gm Ointment 30 Gm Tube) 1 applic TOPICAL Q12HR [facility]; Protocol Last Admin: 03/16/21 09:00 Dose: 1 applic Documented by: Donepezil HCl (Donepezil 10 Mg Tab) 10 mg PO HS@2100 [facility] Last Admin: 03/15/21 20:46 Dose: 10 mg Documented by: Furosemide (Furosemide 10 Mg/Ml 4 Ml Vial) 40 mg IV Q12HR [facility] Insulin Aspart (Insulin Aspart (Novolog) 100 Unit/Ml Vial) 0 unit SQ [facility]; Protocol Last Admin: 03/16/21 06:04 Dose: Not Given Documented by: Isosorbide Mononitrate (Isosorbide Mononitrate Er 30 Mg Tab.Er.24h) 30 mg PO DAILY@0900 [facility] Last Admin: 03/16/21 08:58 Dose: 30 mg Documented by: Lactulose (Lactulose 20 Gm/30 Ml Cup) 20 gm PO DAILY PRN PRN Reason: Constipation Levofloxacin (Levofloxacin 250 Mg Tab) 250 mg PO HS@2100 [facility] Stop: 03/16/21 23:00 Last Admin: 03/15/21 20:47 Dose: 250 mg Documented by: Losartan Potassium (Losartan 25 Mg Tab) 25 mg PO DAILY [facility] Last Admin: 03/16/21 08:58 Dose: 25 mg Documented by: Magnesium Hydroxide (Magnesium Hydroxide 2,400 Mg/10 Ml Cup) 2,400 mg PO DAILY PRN PRN Reason: Constipation Magnesium Oxide (Magnesium Oxide 400 Mg Tab) 400 mg PO DAILY@0900 [facility] Last Admin: 03/16/21 08:58 Dose: 400 mg Documented by: Melatonin (Melatonin 3 Mg Tablet) 3 mg PO HS PRN PRN Reason: Insomnia Last Admin: 03/14/21 20:19 Dose: 3 mg Documented by: Naloxone HCl (Naloxone 0.4 Mg/Ml 1 Ml Vial) 0.2 mg IV Q2M PRN PRN Reason: Opioid Reversal Nystatin (Nystatin 100,000unit/Gm Cream 30 Gm Tube) 1 applic TOPICAL BID [facility]; Protocol Last Admin: 03/16/21 08:58 Dose: 1 applic Documented by: Nystatin (Nystatin 100,000 Unit/Gm Powd 15 Gm) 1 applic TOPICAL BID [facility]; Protocol Last Admin: 03/16/21 08:59 Dose: 1 applic Documented by: Ondansetron HCl (Ondansetron 4 Mg/2 Ml Vial) 4 mg IVP Q8HR PRN PRN Reason: Nausea And Vomiting Potassium Chloride (Potassium Chloride Er 10 Meq Tab.Er.Prt) 10 meq PO DAILY@0900 [facility] Last Admin: 03/16/21 08:58 Dose: 10 meq Documented by: Spironolactone (Spironolactone 25 Mg Tab) 25 mg PO DAILY [facility] Last Admin: 03/16/21 08:58 Dose: 25 mg Documented by: Past medical history to include: Pulmonary hypertension secondary, pacemaker, diabetes, CAD, left leg wound, cognitive impairment Social history: Currently getting rehab at [facility]. No smoking and no alcohol. Family history: Reviewed, noncontributory to presentation Physical examination: VITAL SIGNS: 98.1, 79, 16, 170/68, 97% room air GENERAL: Sitting up in a recliner, a bit less short of breath, more awake EYES: Pupils equal. Conjunctiva normal. HEENT: External appearance of nose and ears normal, oral cavity grossly normal. NECK: JVDt raised; masses not palpable. HEART: [First and second heart sounds are normal; edema present LUNGS:[ Respiratory rate increased; basal crackles. ABDOMEN: Soft, distended nontender, liver spleen not palpable, no masses palpable. PSYCH: Answering questions; mood and affect normal. MUSCULAR skeletal: Evidence of OA EXTREMITY: Wound of lower extremity. With dressing INVESTIGATIONS, reviewed in the clinical context: March 16: Sodium 128. Potassium 4.6. Creatinine 0.73 Chest x-ray film personally reviewed by me-[March 16] venous prominence. Cardiomegaly. March 15: Sodium 128 potassium 4.2 BUN 19 creatinine 0.81 2-D echocardiogram: EF 20-25%. Moderate aortic regurgitation. Severe mitral regurgitation. Severe tricuspid regurgitation. Moderate pulmonary hypertension. WBC 6.9 hemoglobin 13 platelets 253 sodium 125 potassium 4.6 BUN 21 creatinine 0.77 Albumin 2.5 proBNP 51433 Coronavirus [PCR]:not detected EKG tracing personally reviewed by me-no sinus rhythm, poor R-wave progression, intraventricular block and nonspecific ST segment changes Chest x-ray film personally reviewed by me-severe cardiomegaly suggestive of pericardial effusion, left pleural effusion Assessment and plan: -Acute on chronic congestive heart failure exacerbation. Systolic dysfunction EF 20-25% From ischemic cardiomyopathy: Slow to respond IV Lasix 40 mg every 12. Strict I's and O's. Daily weights. Fluid restriction. Follow with cardiology. Aldactone -Left pleural effusion secondary to CHF IV Lasix -Moderate aortic regurgitation, severe mitral regurgitation, severe tricuspid regurgitation Follow clinically -Secondary pulmonary hypertension secondary to CHF Follow clinically -CAD with a prior history of coronary bypass Aspirin, Lipitor, Coreg -Mild cognitive impairment likely from Alzheimer's dementia Follow clinically -Secondary pulmonary hypertension secondary to CHF Follow clinically -Permanent pacemaker -Diabetes mellitus type 2 on oral hypoglycemic Hold glyburide. Follow Accu-Cheks. -Hyponatremia Fluid restriction. Cutback on free fluid. -Left lower extremity wounds. On the left leg. Recently IND and currently on clindamycin and Levaquin. Follow with ID Continue IV Lasix 40 mg twice a day , clindamycin and Levaquin. Wound care per ID. prognosis guarded.
[2021-03-16 11:30] LABS: Glucose,Whole Blood 191 mg/dL (75-99)
--- NOTE | 2021-03-16 11:33 | P.PN ---
Subjective This is a pleasant 80-year-old female past medical history significant for coronary disease status post three-vessel CABG (about 10 years ago, unknown exact details), myocardial infarction, congestive heart failure, hypertension, dyslipidemia, type 2 diabetes, ischemic cardiomyopathy with known EF 25% status post BiV ICD pacer implantation November 22, 2020, bronchitis. She follows with Dr. Guo. We have been asked to see in consultation for congestive heart failure. She presents from Rehab with worsening shortness of breath, edema and orthopnea. Patient seen and examined at bedside, she states her breathing has improved, her edema has also improved. Echo revealed no change in EF 20-25%. Patient with 1L urine output over the past 24 hours. Having some pain in her right lower extremity. She is currently maintained on IV Lasix 40 mg Q8hr, aspirin 81mg daily, atorvastatin 20 mg daily, carvedilol 3.125 mg twice a day, Plavix 75 mg daily, Imdur 30 mg daily, losartan 25 mg daily, potassium chloride 10meq daily. Labs reviewed patient sodium 128, potassium 4.6, BUN 20, serum troponins 0.7, magnesium 1.8. PHYSICAL EXAMINATION Blood pressure 117/68 HR 79, afebrile 97% on room air CONSTITUTIONAL: No apparent distress. HEENT: Neck Supple. No JVD. CHEST EXAMINATION: Lungs are diminished in bases to auscultation. No chest wall tenderness is noted on palpation or with deep breathing. HEART EXAMINATION: Regular rate and rhythm. S1, S2 heard. Systolic ejection murmur at base. ABDOMEN: Soft, nontender. Positive bowel sounds. EXTREMITIES: 1+ bilateral lower extremity edema, 1-2+ bilateral upper extremity edema NEUROLOGIC EXAMINATION: Patient is awake, alert and oriented x2 ASSESSMENT Acute systolic heart failure exacerbation Ischemic cardiomyopathy s/p BiV pacemaker implantation 11/22/2020, known EF 25% Coronary disease status post three-vessel CABG (about 10 years ago, unknown exact details) History of myocardial infarction unknown details History of Hypertension Dyslipidemia Type 2 diabetes Bilateral lower extremity cellulitis Mitral valve insufficiency Moderate to severe pulmonary hypertension PLAN Decrease IV Lasix 40mg BID Increase carvedilol 6.25mg BID Monitor renal function and electrolytes I/Os, daily weights Continue patient's home cardiac medications aspirin, statin, Plavix, Imdur, Losartan Patient would benefit from starting a SGLT2 inhibitor Jardiance due to symptomatic heart failure. These medications are not available in the hospital currently, recommend starting as outpatient. Further recommendations based on clinical course Nurse Practitioner note has been reviewed, I agree with a documented findings and plan of care. Patient was seen and examined. Objective - Vital Signs Vital signs: Vital Signs Temp 98.1 F 03/16/21 08:00 Pulse 79 03/16/21 08:00 Resp 16 03/16/21 08:00 BP 117/68 03/16/21 08:00 Pulse Ox 97 03/16/21 08:00 Intake & Output 03/15/21 03/16/21 03/16/21 18:59 06:59 18:59 Intake Total 910 150 Output Total 250 800 600 Balance 660 -800 -450 Weight 75.3 kg 75.8 kg Intake: IV 10 Invasive Line 1 10 Oral 900 150 Output: Urine 250 800 600 Other: Voiding Method External Catheter External Catheter # Voids 1 # Bowel Movements 1 - Labs CBC & Chem 7: 03/14/21 09:58 03/16/21 06:27 Labs: Abnormal Lab Results - Last 24 Hours (Table) 03/15/21 03/15/21 03/15/21 Range/Units 05:53 11:29 16:30 Sodium (137-145) mmol/L Chloride (98-107) mmol/L BUN (7-17) mg/dL Glucose (74-99) mg/dL POC Glucose (mg/dL) 188 H 134 H (75-99) mg/dL Hemoglobin A1c 8.8 H (4.0-6.0) % 03/15/21 03/16/21 Range/Units 20:05 06:27 Sodium 128 L (137-145) mmol/L Chloride 95 L (98-107) mmol/L BUN 20 H (7-17) mg/dL Glucose 102 H (74-99) mg/dL POC Glucose (mg/dL) 166 H (75-99) mg/dL Hemoglobin A1c (4.0-6.0) %
[2021-03-16] MEDS: HYDROcodone/APAP 5-325MG 1 EACH TAB PO PRN ×3 (11:47→23:48)
--- NOTE | 2021-03-16 14:49 | P.CONS ---
History of Present Illness - Reason for Consult Consult date: 03/15/21 leg wounds Requesting physician: Rober Steen - Chief Complaint shortness of breath x days - History of Present Illness History of Present Illness : Patient is 80-year female with multiple comorbidity recent pacemaker placement apparently patient was recently admitted at [facility] with the patient did have a left lower extremity wound debridement and the patient was discharged on a 7-day course of oral Levaquin and clindamycin with not very sure what exactly those cultures were the patient has significant wound to the left leg with the granddaughter said started after she has been scratching her wound the patient currently complaining of some dull aching pain to the leg wound especially with the dressing changes 3-4 out of 10 and no radiation patient also have a pacemaker site infection with the granddaughter mention there was a pus coming out of it and she was treated with an oral antibiotic with the patient has completed patient was undergoing rehab at [facility] she was sent to the ER on the for evaluation of increasing shortness of breath, patient denies having any chest pain denies significant cough or sputum production no vomiting no abdominal pain no diarrhea patient on presentation to the hospital was afebrile no fever has been recorded subsequently patient did have a normal white count with no left shift kidney function has been normal carotid PCR was negative patient did have a chest x-ray that was suggestive of CHF exacerbation and is being managed by cardiology services Review of system: CONSTITUTIONAL: Positive for weakness denies fever. EYES: No complaint. ENT: No complaint. RESPIRATORY: As per history of present illness. CARDIOVASCULAR: As per history of present illness GENITOURINARY: No complaint. GASTROINTESTINAL: No complaint. MUSCULOSKELETAL: As per history of present illness. INTEGUMENTARY : No complaint. PSYCHOLOGIC: No complaint. ENDOCRINE: No complaint. NEUROLOGIC: No complaint. Past medical history : Reviewed, documented below Past surgical history : Reviewed, documented below Social history: Reviewed, documented below Medications: Reviewed, as documented below EXAMINATION: Vital sigans= Reviewed and documented below GENERAL DESCRIPTION: Elderly female lying in bed, no distress. No tachypnea or accessory muscle of respiration use. HEENT: Shows Pallor , no scleral icterus. Oral mucous membrane is dry. NECK: Trachea central, no thyromegaly. LUNGS: Unlabored breathing. Decreased breath sound at the base. No wheeze or crackle. HEART: S1, S2, regular rate and rhythm. ABDOMEN: Soft, no tenderness , guarding or rigidity EXTREMITIES: Extensive wound to the left leg with minimal slough tissue no surrounding redness or foul-smelling drainage SKIN: No rash, no masses palpable. Pacemaker site with minimal erythema no open wound or any drainage NEUROLOGICAL: The patient is awake, alert, oriented x3, mood and affect normal. LABS AND RADIOLOGY: Reviewed results see below Assessment : 1-patient is a 80-year female with a recent left lower extremity wound debridement at [facility] and the patient was advised a 7-day course of oral clindamycin Levaquin which apparently the patient has completed patient is currently afebrile do not have any elevated white count and no definite cellulitis of the lower examination recommend local wound care 2-patient apparent left chest wall pacemaker site cellulitis has been in the outpatient setting by cardiology patient did have minimal erythema however in view of no fever or elevated white count underlying suspicious for deep infection would be low Plan: 1-we will obtain blood cultures and CRP and procalcitonin 2-local wound care with the Santyl followed by moist dressing to be changed daily 3-we will hold on any further systemic antibiotic therapy at this point We will follow on clinical condition and cultures to further adjust medication if needed Thank you for this consultation we will follow the patient along with you Past Medical History Past Medical History: Diabetes Mellitus, Hypertension Additional Past Medical History / Comment(s): Cardiomyopathy, DM TyII, Bronchitis Last Myocardial Infarction Date:: 2010 History of Any Multi-Drug Resistant Organisms: None Reported Past Surgical History: Pacemaker Additional Past Surgical History / Comment(s): CABG x3 2010?-year unsure. Past Anesthesia/Blood Transfusion Reactions: No Reported Reaction Type of Cardiac Device: AICD Device Placement Date:: 2020 Smoking Status: Never smoker - Past Family History Father Family Medical History: No Reported History Mother Family Medical History: No Reported History Medications and Allergies Home Medications Medication Instructions Recorded Confirmed Type Aspirin EC [Ecotrin Low Dose] 81 mg PO DAILY@0900 03/14/21 03/14/21 History Atorvastatin [Lipitor] 20 mg PO HS@209903/14/21 03/14/21 History Bumetanide [Bumex] 1 mg PO BID@0900,209903/14/21 03/14/21 History Clindamycin HCl 300 mg PO TID@0600,1400,2200 03/14/21 03/14/21 History Clopidogrel [Plavix] 75 mg PO DAILY@0900 03/14/21 03/14/21 History Collagenase [Santyl] 1 applic TOPICAL Q12H 03/14/21 03/14/21 History Donepezil [Aricept] 10 mg PO HS@2100 03/14/21 03/14/21 History HYDROcodone/APAP 5-325MG [[place] 1 tab PO Q4HR PRN 03/14/21 03/14/21 History 5-325] Isosorbide Mononitrate ER [Imdur] 30 mg PO DAILY@0900 03/14/21 03/14/21 History Levofloxacin [Levaquin] 500 mg PO HS@2100 03/14/21 03/14/21 History Losartan Potassium [Cozaar] 25 mg PO DAILY@0900 03/14/21 03/14/21 History Magnesium Oxide 400 mg PO DAILY@0900 03/14/21 03/14/21 History Potassium Chloride ER [K-Dur 10] 10 meq PO DAILY@0900 03/14/21 03/14/21 History carvediloL [Coreg] 3.125 mg PO BID@0900,2100 03/14/21 03/14/21 History diphenhydrAMINE [Benadryl] 25 mg PO Q6H PRN 03/14/21 03/14/21 History glipiZIDE [Glucotrol] 5 mg PO DAILY@0900 03/14/21 03/14/21 History Allergies Allergy/AdvReac Type Severity Reaction Status Date / Time Sulfa (Sulfonamide Allergy Anaphylaxis Verified 03/14/21 09:49 Antibiotics) Physical Exam Vitals: Vital Signs Temp Pulse Pulse Resp BP BP Pulse Ox 03/15/21 11:46 97.6 F 76 18 112/69 96 03/15/21 09:20 97.8 F 73 20 115/69 97 03/15/21 03:33 97.6 F 77 17 119/73 97 03/14/21 23:49 97.8 F 69 18 118/75 97 03/14/21 20:00 96.9 F L 83 18 125/84 96 03/14/21 18:43 98.7 F 84 20 138/77 96 03/14/21 18:22 98.7 F 84 18 138/77 96 03/14/21 16:00 74 18 127/71 96 Intake and Output 03/14/21 03/15/21 03/15/21 22:59 06:59 14:59 Intake Total 250 250 Output Total 200 1000 Balance 50 -1000 250 Intake: IV 10 10 Invasive Line 1 10 10 Oral 240 240 Output: Urine 200 1000 Other: Voiding Method External Catheter External Catheter External Catheter # Voids 1 # Bowel Movements 1 1 Weight 75.3 kg 75.3 kg Results CBC & Chem 7: 03/14/21 09:58 03/16/21 06:27 Labs: Abnormal Lab Results - Last 24 Hours (Table) 03/14/21 03/15/21 03/15/21 Range/Units 19:47 05:53 05:53 Sodium 128 L (137-145) mmol/L Chloride 94 L (98-107) mmol/L BUN 19 H (7-17) mg/dL Glucose 107 H (74-99) mg/dL POC Glucose (mg/dL) 210 H (75-99) mg/dL Hemoglobin A1c 8.8 H (4.0-6.0) % 03/15/21 03/15/21 Range/Units 06:14 11:29 Sodium (137-145) mmol/L Chloride (98-107) mmol/L BUN (7-17) mg/dL Glucose (74-99) mg/dL POC Glucose (mg/dL) 124 H 188 H (75-99) mg/dL Hemoglobin A1c (4.0-6.0) %
[2021-03-16 16:29] LABS: Glucose,Whole Blood 238 mg/dL (75-99)
--- NOTE | 2021-03-16 19:08 | PN ---
PROGRESS NOTE DATE OF SERVICE: 03/16/2021 REASON FOR FOLLOWUP: 1. Left lower extremity wound. 2. Chest pacemaker site. INTERVAL HISTORY: The patient remains to be afebrile. The patient is breathing slightly comfortably. The patient denies any chest pain. Did have a cough. No nausea or vomiting. No abdominal pain. No worsening pain to left leg. PHYSICAL EXAMINATION: Blood pressure 139/67, pulse of 88, temperature 98.1. She is 96% on room air. General description is an elderly female lying in bed in no distress. Respiratory system: Unlabored breathing, decreased intensity of breath sounds, no wheeze. Heart S1, S2. Regular rate and rhythm. Abdomen soft, no tenderness. Left leg is currently wrapped up, no obvious drainage on the dressing. LABS: Creatinine 1.8. DIAGNOSTIC IMPRESSION AND PLAN: 1. Patient with left leg wound with no evidence of any cellulitis at this time, to continue with local wound care with Santyl followed by moist dressing to be changed daily. 2. Patient with question of ( ) cellulitis. However, the patient not running any fever. CRP is not significantly elevated. He will need to be monitored closely. Continue supportive care. MMODL / IJN: [id number] /
[2021-03-16 19:58] LABS: Glucose,Whole Blood 275 mg/dL (75-99)
[2021-03-16] MEDS: ATORVASTATIN 20 MG TAB PO SCH (20:48)
[2021-03-16] MEDS: DONEPEZIL 10 MG TAB PO SCH (20:48)
[2021-03-16] MEDS: carvediloL 6.25 MG TAB PO SCH (20:49)
[2021-03-16] MEDS: LEVOFLOXACIN 250 MG TAB PO SCH (20:50)
[2021-03-17 06:01] LABS: Glucose,Whole Blood 108 mg/dL (75-99)
[2021-03-17] MEDS: INSULIN ASPART (NovoLOG) 100 UNIT/ML VIAL SQ SCH ×4 (06:12→19:52)
[2021-03-17 06:38] LABS: Calcium 8.9 mg/dL (8.4-10.2); Potassium 4.8 mmol/L (3.5-5.1)
[2021-03-17] MEDS: LOSARTAN 25 MG TAB PO SCH (09:34)
[2021-03-17] MEDS: ASPIRIN 81 MG PO SCH (09:34)
[2021-03-17] MEDS: CLOPIDOGREL 75 MG TAB PO SCH (09:34)
[2021-03-17] MEDS: MAGNESIUM OXIDE 400 MG TAB PO SCH (09:34)
[2021-03-17] MEDS: POTASSIUM CHLORIDE ER 10 MEQ TAB.ER.PRT PO SCH (09:36)
[2021-03-17] MEDS: carvediloL 6.25 MG TAB PO SCH ×2 (09:36→19:51)
[2021-03-17] MEDS: SPIRONOLACTONE 25 MG TAB PO SCH (09:36)
[2021-03-17] MEDS: HYDROcodone/APAP 5-325MG 1 EACH TAB PO PRN ×2 (09:37→18:56)
[2021-03-17] MEDS: FUROSEMIDE 10 MG/ML 4 ML VIAL IV SCH (09:38)
[2021-03-17] MEDS: COLLAGENASE 250 UNIT/GM OINTMENT 30 GM TUBE TOPICAL SCH ×2 (09:38→19:30)
[2021-03-17] MEDS: ISOSORBIDE MONONITRATE ER 30 MG TAB.ER.24H PO SCH (09:38)
[2021-03-17] MEDS: NYSTATIN 100,000UNIT/GM CREAM 30 GM TUBE TOPICAL SCH ×2 (09:39→19:52)
[2021-03-17] MEDS: NYSTATIN 100,000 UNIT/GM POWD 15 GM TOPICAL SCH ×2 (09:39→19:52)
--- NOTE | 2021-03-17 10:48 | P.PN ---
Subjective This is a pleasant 80-year-old female past medical history significant for coronary disease status post three-vessel CABG (about 10 years ago, unknown exact details), myocardial infarction, congestive heart failure, hypertension, dyslipidemia, type 2 diabetes, ischemic cardiomyopathy with known EF 25% status post BiV ICD pacer implantation November 22, 2020, bronchitis. She follows with Dr. Guo. We have been asked to see in consultation for congestive heart failure. She presents from Rehab with worsening shortness of breath, edema and orthopnea. Patient seen and examined at bedside, her edema and shortness of breath have significantly improved since admission. She states she has some bilateral leg pain but her pain is currently controlled . Echo revealed no change in EF 20- 25%. Patient with 1.7L urine output over the past 24 hours. She is currently maintained on IV Lasix 40 mg BID, aspirin 81mg daily, atorvastatin 20 mg daily, carvedilol 6.25 mg twice a day, Plavix 75 mg daily, Imdur 30 mg daily, losartan 25 mg daily, potassium chloride 10meq daily. Labs reviewed patient sodium 129, potassium 4.8, BUN 23, serum creatinin 0.94 PHYSICAL EXAMINATION Blood pressure 114/69, heart rate 97, afebrile maintaining oxygen saturations greater than 92% on room air CONSTITUTIONAL: No apparent distress. HEENT: Neck Supple. No JVD. CHEST EXAMINATION: Lungs are diminished in bases to auscultation. No chest wall tenderness is noted on palpation or with deep breathing. HEART EXAMINATION: Regular rate and rhythm. S1, S2 heard. Systolic ejection murmur at base. ABDOMEN: Soft, nontender. Positive bowel sounds. EXTREMITIES: 1+ bilateral lower extremity edema, 1+ bilateral upper extremity edema NEUROLOGIC EXAMINATION: Patient is awake, alert and oriented x2 ASSESSMENT Acute systolic heart failure exacerbation Ischemic cardiomyopathy s/p BiV pacemaker implantation 11/22/2020, known EF 25% Coronary disease status post three-vessel CABG (about 10 years ago, unknown exact details) History of myocardial infarction unknown details History of Hypertension Dyslipidemia Type 2 diabetes Bilateral lower extremity cellulitis Mitral valve insufficiency Moderate to severe pulmonary hypertension PLAN -Discontinue IV Lasix, continue patient's home Bumex 1mg BID PO -Increase losartan to 50mg daily -Continue carvedilol 6.25mg BID -Continue patient's home cardiac medications aspirin, statin, Plavix, Imdur -Patient would benefit from starting a SGLT2 inhibitor Jardiance due to symptomatic heart failure. These medications are not available in the hospital currently, recommend starting as outpatient. -From a cardiology perspective, patient is stable to be discharged home. -Recommend follow up with her primary leather goods sales representative Dr. Guo Nurse Practitioner note has been reviewed, I agree with a documented findings and plan of care. Patient was seen and examined. Objective - Vital Signs Vital signs: Vital Signs Temp 97.5 F L 03/17/21 08:00 Pulse 97 03/17/21 08:00 Resp 18 03/17/21 08:00 BP 114/69 03/17/21 08:00 Pulse Ox 99 03/17/21 08:00 Intake & Output 03/16/21 03/17/21 03/17/21 18:59 06:59 18:59 Intake Total 570 240 Output Total 1100 600 570 Balance -530 -600 -330 Weight 75.3 kg Intake: Oral 570 240 Output: Urine 1100 600 570 Other: Voiding Method External Catheter - Labs CBC & Chem 7: 03/14/21 09:58 03/17/21 05:39 Labs: Abnormal Lab Results - Last 24 Hours (Table) 03/16/21 03/16/21 03/16/21 Range/Units 11:29 15:22 15:22 Sodium (137-145) mmol/L Chloride (98-107) mmol/L Carbon Dioxide (22-30) mmol/L BUN (7-17) mg/dL POC Glucose (mg/dL) 191 H (75-99) mg/dL C-Reactive Protein 1.8 H (<1.0) mg/dL Procalcitonin 0.11 H (0.02-0.09) ng/mL 03/16/21 03/16/21 03/17/21 Range/Units 16:26 19:53 05:39 Sodium 129 L (137-145) mmol/L Chloride 91 L (98-107) mmol/L Carbon Dioxide 34 H (22-30) mmol/L BUN 23 H (7-17) mg/dL POC Glucose (mg/dL) 238 H 275 H (75-99) mg/dL C-Reactive Protein (<1.0) mg/dL Procalcitonin (0.02-0.09) ng/mL 10/29/21 Range/Units 05:59 Sodium (137-145) mmol/L Chloride (98-107) mmol/L Carbon Dioxide (22-30) mmol/L BUN (7-17) mg/dL POC Glucose (mg/dL) 108 H (75-99) mg/dL C-Reactive Protein (<1.0) mg/dL Procalcitonin (0.02-0.09) ng/mL
[2021-03-17 11:40] LABS: Glucose,Whole Blood 206 mg/dL (75-99)
--- NOTE | 2021-03-17 16:41 | PN ---
PROGRESS NOTE DATE OF SERVICE: 03/17/2021 REASON FOR FOLLOWUP: Left lower extremity wound and a question of cellulitis at the pacemaker site. INTERVAL HISTORY: The patient is afebrile. The patient mentioned she is feeling better, she is breathing comfortably. Denies any pain to the left chest wall pacemaker site. No chest pain. No nausea, no vomiting. No abdominal pain or pain to the left lower extremity. PHYSICAL EXAMINATION: Blood pressure 114/68 with a pulse of 69, temperature 97.9. She is 96% on room air. General description is an elderly female lying in bed in no distress. RESPIRATORY SYSTEM: Unlabored breathing. Decreased intensity of breath sounds. No wheeze. HEART: S1, S2. Regular rate and rhythm. ABDOMEN: Soft. No tenderness. Left leg is currently wrapped. No obvious drainage on the dressing. LABS: BUN of 23, creatinine 0.94. Culture has been negative. DIAGNOSTIC IMPRESSION AND PLAN: 1. Patient with left lower extremity wound. No evidence of any cellulitis. Local care to continue with Santyl followed by moist dressing; change daily. Keep the area off pressure. 2. Patient with minimal erythema to the pacemaker site. However, the patient has not any fever, no white count and blood culture negative. Will continue to monitor the patient closely off systemic antibiotic therapy. Daughter at the bedside. Questions were answered. MMODL / IJN: [id number] /
[2021-03-17 16:43] LABS: Glucose,Whole Blood 306 mg/dL (75-99)
--- NOTE | 2021-03-17 17:06 | P.PN ---
Progress Note - Text Progress Note Date: 03/17/21 Chief Complaint: Short of breath This is a pleasant 80-year-old patient who follows with cardiologistDr Schultz. Patient's currently a resident of [facility]. Chronic stable medical conditions include bulbi hypertension, pacemaker, diabetes, coronary artery disease with a bypass over 10 years ago. Patient was discharged from [facility] 5 days ago. She was therefore a left leg wound that was I&D 8 and discharged with clindamycin and Levaquin for 7 days. Patient has slight cognitive impairment and not too good for details. Her daughter is at the bedside. She was noticed to be increasingly short of breath. Significant edema in the lower extremity. Minimal cough. Decreased appetite. Patient always sits up and sleep. Patient has not had a bowel movement for last 7 days. Patient is rather tired. Admitted with CHF exacerbation, left pleural effusion. Started on IV Lasix. EF 20-25%. 03/15/2021: Sitting up in a recliner. Breathing a bit better. On IV Lasix. Good urine output. Some pain in the left lower extremity wound site. Does have [place] for the same. Discussed with the patient and daughter at length to avoid taking more narcotics. 03/16/2021: Breathing better. Decreased to IV Lasix 40 mg every 12. Eating about 25%-50%. 03/17/2021: Sitting up in a recliner. Tired. Eating better. Daughter the bedside. Pain in the left leg. Sodium 129. Care was discussed at length with the patient and daughter the bedside. CODE STATUS DO NOT RESUSCITATE. Per ID no cellulitis of the left lower extremity. Wound Review of systems: Was done for constitutional, cardiovascular, GI, pulmonary. relevant finding as above Active Medications Acetaminophen (Acetaminophen Tab 325 Mg Tab) 650 mg PO Q6HR PRN PRN Reason: Mild Pain or Fever > 100.5 Last Admin: 03/16/21 09:12 Dose: 650 mg Documented by: Hydrocodone Bitart/Acetaminophen (Hydrocodone/Apap 5-325mg 1 Each Tab) 1 each PO Q4HR PRN PRN Reason: Pain Last Admin: 03/17/21 09:37 Dose: 1 each Documented by: Al Hydroxide/Mg Hydroxide (Mag Hydrox/Al Hydrox/Simeth 30 Ml Cup) 15 ml PO Q6HR PRN PRN Reason: Indigestion Alprazolam (Alprazolam 0.25 Mg Tab) 0.25 mg PO Q6HR PRN PRN Reason: Anxiety Aspirin (Aspirin 81 Mg) 81 mg PO DAILY@09 [facility] Last Admin: 03/17/21 09:34 Dose: 81 mg Documented by: Atorvastatin Calcium (Atorvastatin 20 Mg Tab) 20 mg PO HS@2099 [facility] Last Admin: 03/16/21 20:48 Dose: 20 mg Documented by: Bumetanide (Bumetanide 1 Mg Tab) 1 mg PO BID@899,2099 [facility] Calcium Carbonate/Glycine (Calcium Carbonate 500 Mg Chewable) 1,000 mg PO Q4HR PRN PRN Reason: Dyspepsia Carvedilol (Carvedilol 6.25 Mg Tab) 6.25 mg PO BID@899,2099 [facility] Last Admin: 03/17/21 09:36 Dose: 6.25 mg Documented by: Clopidogrel Bisulfate (Clopidogrel 75 Mg Tab) 75 mg PO DAILY@899 [facility] Last Admin: 03/17/21 09:34 Dose: 75 mg Documented by: Collagenase (Collagenase 250 Unit/Gm Ointment 30 Gm Tube) 1 applic TOPICAL Q12HR [facility]; Protocol Last Admin: 03/17/21 09:38 Dose: 1 applic Documented by: Donepezil HCl (Donepezil 10 Mg Tab) 10 mg PO HS@2099 [facility] Last Admin: 03/16/21 20:48 Dose: 10 mg Documented by: Insulin Aspart (Insulin Aspart (Novolog) 100 Unit/Ml Vial) 0 unit SQ [facility]; Protocol Last Admin: 03/17/21 12:22 Dose: 3 unit Documented by: Isosorbide Mononitrate (Isosorbide Mononitrate Er 30 Mg Tab.Er.24h) 30 mg PO DAILY@0900 [facility] Last Admin: 03/17/21 09:38 Dose: 30 mg Documented by: Lactulose (Lactulose 20 Gm/30 Ml Cup) 20 gm PO DAILY PRN PRN Reason: Constipation Losartan Potassium (Losartan 50 Mg Tab) 50 mg PO DAILY [facility] Magnesium Hydroxide (Magnesium Hydroxide 2,400 Mg/10 Ml Cup) 2,400 mg PO DAILY PRN PRN Reason: Constipation Magnesium Oxide (Magnesium Oxide 400 Mg Tab) 400 mg PO DAILY@09 [facility] Last Admin: 03/17/21 09:34 Dose: 400 mg Documented by: Melatonin (Melatonin 3 Mg Tablet) 3 mg PO HS PRN PRN Reason: Insomnia Last Admin: 03/14/21 20:19 Dose: 3 mg Documented by: Naloxone HCl (Naloxone 0.4 Mg/Ml 1 Ml Vial) 0.2 mg IV Q2M PRN PRN Reason: Opioid Reversal Nystatin (Nystatin 100,000unit/Gm Cream 30 Gm Tube) 1 applic TOPICAL BID [facility]; Protocol Last Admin: 03/17/21 09:39 Dose: 1 applic Documented by: Nystatin (Nystatin 100,000 Unit/Gm Powd 15 Gm) 1 applic TOPICAL BID [facility]; Protocol Last Admin: 03/17/21 09:39 Dose: 1 applic Documented by: Ondansetron HCl (Ondansetron 4 Mg/2 Ml Vial) 4 mg IVP Q8HR PRN PRN Reason: Nausea And Vomiting Potassium Chloride (Potassium Chloride Er 10 Meq Tab.Er.Prt) 10 meq PO DAILY@0900 [facility] Last Admin: 03/17/21 09:36 Dose: 10 meq Documented by: Spironolactone (Spironolactone 25 Mg Tab) 25 mg PO DAILY [facility] Last Admin: 03/17/21 09:36 Dose: 25 mg Documented by: Past medical history to include: Pulmonary hypertension secondary, pacemaker, diabetes, CAD, left leg wound, cognitive impairment Social history: Currently getting rehab at [facility]. No smoking and no alcohol. Family history: Reviewed, noncontributory to presentation Physical examination: VITAL SIGNS: 97.9, 69, 14, 114/68, 96% room air GENERAL: Sitting up in a recliner, tired, breathing better EYES: Pupils equal. Conjunctiva normal. HEENT: External appearance of nose and ears normal, oral cavity grossly normal. NECK: JVDt raised; masses not palpable. HEART: [First and second heart sounds are normal; edema present LUNGS:[ Respiratory rate increased; lungs clear ABDOMEN: Soft, distended nontender, liver spleen not palpable, no masses palpab le. PSYCH: Answering questions; mood and affect normal. MUSCULAR skeletal: Evidence of OA EXTREMITY: Wound of lower extremity. With dressing INVESTIGATIONS, reviewed in the clinical context: March 17: Sodium 129 potassium 4.8 creatinine 0.94 March 16: Sodium 128. Potassium 4.6. Creatinine 0.73 Chest x-ray film personally reviewed by me-[March 16] venous prominence. Cardiomegaly. March 15: Sodium 128 potassium 4.2 BUN 19 creatinine 0.81 2-D echocardiogram: EF 20-25%. Moderate aortic regurgitation. Severe mitral regurgitation. Severe tricuspid regurgitation. Moderate pulmonary hypertension. WBC 6.9 hemoglobin 13 platelets 253 sodium 125 potassium 4.6 BUN 21 creatinine 0.77 Albumin 2.5 proBNP 44266 Coronavirus [PCR]:not detected EKG tracing personally reviewed by me-no sinus rhythm, poor R-wave progression, intraventricular block and nonspecific ST segment changes Chest x-ray film personally reviewed by me-severe cardiomegaly suggestive of pericardial effusion, left pleural effusion Assessment and plan: -Acute on chronic congestive heart failure exacerbation. Systolic dysfunction EF 20-25% From ischemic cardiomyopathy: Bed to IV Lasix discontinued. Strict I's and O's. Daily weights. Fluid restriction. Follow with cardiology. Aldactone. Started on Bumex 1 mg twice a day -Left pleural effusion secondary to CHF IV Lasix. Changed to Bumex -Moderate aortic regurgitation, severe mitral regurgitation, severe tricuspid regurgitation Follow clinically -Secondary pulmonary hypertension secondary to CHF Follow clinically -CAD with a prior history of coronary bypass Aspirin, Lipitor, Coreg -Mild cognitive impairment likely from Alzheimer's dementia Follow clinically -Secondary pulmonary hypertension secondary to CHF Follow clinically -Permanent pacemaker -Diabetes mellitus type 2 on oral hypoglycemic Resume glyburide. Follow Accu-Cheks. -Hyponatremia Fluid restriction. Cutback on free fluid. -Left lower extremity wounds. No cellulitis per ID. Recently IND. Patient off antibiotics. Local care. Cutback on free fluid. IV Lasix changed to by mouth Bumex. Follow labs. Prognosis guarded. Discussed with the patient daughter the bedside. Prognosis discussed. She understands her activity will be limited. Possible DC back to the ECF on Saturday. Try to get her sodium up. Advanced care planning: This was discussed with the patient daughter the bedside. Patient does not have been DPO. Is planning to make her elder daughter Consuelo the same. Patient's overall condition was discussed. She understands. Does not wish to be resuscitated. Cardiac resuscitation and intubation was discussed. She wishes to be DO NOT RESUSCITATE. Orders are being placed. Total time spent for this 20 minutes
[2021-03-17 19:43] LABS: Glucose,Whole Blood 270 mg/dL (75-99)
[2021-03-17] MEDS: DONEPEZIL 10 MG TAB PO SCH (19:51)
[2021-03-17] MEDS: BUMETANIDE 1 MG TAB PO SCH (19:51)
[2021-03-17] MEDS: ATORVASTATIN 20 MG TAB PO SCH (19:52)
[2021-03-17] MEDS: ALPRAZolam 0.25 MG TAB PO PRN (19:54)
[2021-03-18] MEDS: HYDROcodone/APAP 5-325MG 1 EACH TAB PO PRN ×3 (00:41→21:36)
[2021-03-18 06:03] LABS: Glucose,Whole Blood 113 mg/dL (75-99)
[2021-03-18] MEDS: INSULIN ASPART (NovoLOG) 100 UNIT/ML VIAL SQ SCH ×4 (06:16→21:35)
[2021-03-18] MEDS: ISOSORBIDE MONONITRATE ER 30 MG TAB.ER.24H PO SCH (08:21)
[2021-03-18] MEDS: MAGNESIUM OXIDE 400 MG TAB PO SCH (08:21)
[2021-03-18] MEDS: COLLAGENASE 250 UNIT/GM OINTMENT 30 GM TUBE TOPICAL SCH ×2 (08:22→21:35)
[2021-03-18] MEDS: SPIRONOLACTONE 25 MG TAB PO SCH (08:22)
[2021-03-18] MEDS: POTASSIUM CHLORIDE ER 10 MEQ TAB.ER.PRT PO SCH (08:22)
[2021-03-18] MEDS: NYSTATIN 100,000UNIT/GM CREAM 30 GM TUBE TOPICAL SCH ×2 (08:22→21:36)
[2021-03-18] MEDS: ASPIRIN 81 MG PO SCH (08:22)
[2021-03-18] MEDS: carvediloL 6.25 MG TAB PO SCH ×2 (08:22→21:33)
[2021-03-18] MEDS: CLOPIDOGREL 75 MG TAB PO SCH (08:22)
[2021-03-18] MEDS: LOSARTAN 50 MG TAB PO SCH (08:22)
[2021-03-18] MEDS: BUMETANIDE 1 MG TAB PO SCH ×2 (08:22→21:33)
[2021-03-18] MEDS: NYSTATIN 100,000 UNIT/GM POWD 15 GM TOPICAL SCH ×2 (08:22→21:36)
[2021-03-18 11:43] LABS: Glucose,Whole Blood 305 mg/dL (75-99)
--- NOTE | 2021-03-18 13:57 | PN ---
PROGRESS NOTE Mrs. Boateng is a 80-year-old female with a history of cardiomyopathy who presented with worsening congestive heart failure. She is feeling better today. She feels stronger. She denies any chest pain. She denies any dizziness or palpitations. She denies any nausea. She continues to be on aspirin once a day, Lipitor 20 mg daily, Bumex 1 mg twice a day, carvedilol 6.25 mg twice a day, Plavix 75 mg daily, donepezil, isosorbide mononitrate 30 mg daily, and losartan 50 mg daily in addition to spironolactone 25 mg daily. PHYSICAL EXAMINATION: Blood pressure 120/50 with a heart rate in the 80s. LUNGS: Clear. HEART: Regular rate and rhythm. S1, S2. No S3, with a holosystolic murmur at the apex. No diastolic murmur. No rub. ABDOMEN: Soft, nontender. EXTREMITIES: No significant edema. IMPRESSION: 1. Congestive heart failure with history of severe ischemic cardiomyopathy, improved. 2. Status post ICD implantation. 3. History of cellulitis. 4. History of diabetes. 5. Mitral regurgitation. RECOMMENDATIONS: From the cardiac standpoint, she is stable. I would expect she should be able to be discharged home soon and follow up with her primary margarine churn operator. The patient may benefit from the addition of Jardiance as an outpatient, and she will be evaluated by in that regard, who is her primary margarine churn operator. She is stable on her present medical regimen. MMODL / BILLYN: [id number] /
--- NOTE | 2021-03-18 15:06 | P.PN ---
Progress Note - Text Progress Note Date: 03/18/21 Chief Complaint: Short of breath This is a pleasant 80-year-old patient who follows with cardiologistDr Schultz. Patient's currently a resident of [facility]. Chronic stable medical conditions include bulbi hypertension, pacemaker, diabetes, coronary artery disease with a bypass over 10 years ago. Patient was discharged from [facility] 5 days ago. She was therefore a left leg wound that was I&D 8 and discharged with clindamycin and Levaquin for 7 days. Patient has slight cognitive impairment and not too good for details. Her daughter is at the bedside. She was noticed to be increasingly short of breath. Significant edema in the lower extremity. Minimal cough. Decreased appetite. Patient always sits up and sleep. Patient has not had a bowel movement for last 7 days. Patient is rather tired. Admitted with CHF exacerbation, left pleural effusion. Started on IV Lasix. EF 20-25%. 03/15/2021: Sitting up in a recliner. Breathing a bit better. On IV Lasix. Good urine output. Some pain in the left lower extremity wound site. Does have [place] for the same. Discussed with the patient and daughter at length to avoid taking more narcotics. 03/16/2021: Breathing better. Decreased to IV Lasix 40 mg every 12. Eating about 25%-50%. 03/17/2021: Sitting up in a recliner. Tired. Eating better. Daughter the bedside. Pain in the left leg. Sodium 129. Care was discussed at length with the patient and daughter the bedside. CODE STATUS DO NOT RESUSCITATE. Per ID no cellulitis of the left lower extremity. Wound 03/18/2021: Up in a recliner. Appetite is improving. Decreased pain in the left leg. Breathing better. Discussed with patient about cutting back free fluid. Feeling a bit better. Review of systems: Was done for constitutional, cardiovascular, GI, pulmonary. relevant finding as above Active Medications Acetaminophen (Acetaminophen Tab 325 Mg Tab) 650 mg PO Q6HR PRN PRN Reason: Mild Pain or Fever > 100.5 Last Admin: 03/16/21 09:12 Dose: 650 mg Documented by: Hydrocodone Bitart/Acetaminophen (Hydrocodone/Apap 5-325mg 1 Each Tab) 1 each PO Q4HR PRN PRN Reason: Pain Last Admin: 03/18/21 00:41 Dose: 1 each Documented by: Al Hydroxide/Mg Hydroxide (Mag Hydrox/Al Hydrox/Simeth 30 Ml Cup) 15 ml PO Q6HR PRN PRN Reason: Indigestion Alprazolam (Alprazolam 0.25 Mg Tab) 0.25 mg PO Q6HR PRN PRN Reason: Anxiety Last Admin: 03/17/21 19:54 Dose: 0.25 mg Documented by: Aspirin (Aspirin 81 Mg) 81 mg PO DAILY@09 [facility] Last Admin: 03/18/21 08:22 Dose: 81 mg Documented by: Atorvastatin Calcium (Atorvastatin 20 Mg Tab) 20 mg PO HS@2099 [facility] Last Admin: 03/17/21 19:52 Dose: 20 mg Documented by: Bumetanide (Bumetanide 1 Mg Tab) 1 mg PO BID@00,2099 [facility] Last Admin: 03/18/21 08:22 Dose: 1 mg Documented by: Calcium Carbonate/Glycine (Calcium Carbonate 500 Mg Chewable) 1,000 mg PO Q4HR PRN PRN Reason: Dyspepsia Carvedilol (Carvedilol 6.25 Mg Tab) 6.25 mg PO BID@899,2099 [facility] Last Admin: 03/18/21 08:22 Dose: 6.25 mg Documented by: Clopidogrel Bisulfate (Clopidogrel 75 Mg Tab) 75 mg PO DAILY@899 [facility] Last Admin: 03/18/21 08:22 Dose: 75 mg Documented by: Collagenase (Collagenase 250 Unit/Gm Ointment 30 Gm Tube) 1 applic TOPICAL Q12HR [facility]; Protocol Last Admin: 03/18/21 08:22 Dose: 1 applic Documented by: Donepezil HCl (Donepezil 10 Mg Tab) 10 mg PO HS@2100 [facility] Last Admin: 03/17/21 19:51 Dose: 10 mg Documented by: Insulin Aspart (Insulin Aspart (Novolog) 100 Unit/Ml Vial) 0 unit SQ [facility]; Protocol Last Admin: 03/18/21 12:23 Dose: 5 unit Documented by: Isosorbide Mononitrate (Isosorbide Mononitrate Er 30 Mg Tab.Er.24h) 30 mg PO DAILY@0900 [facility] Last Admin: 03/18/21 08:21 Dose: 30 mg Documented by: Lactulose (Lactulose 20 Gm/30 Ml Cup) 20 gm PO DAILY PRN PRN Reason: Constipation Losartan Potassium (Losartan 50 Mg Tab) 50 mg PO DAILY [facility] Last Admin: 03/18/21 08:22 Dose: 50 mg Documented by: Magnesium Hydroxide (Magnesium Hydroxide 2,400 Mg/10 Ml Cup) 2,400 mg PO DAILY PRN PRN Reason: Constipation Magnesium Oxide (Magnesium Oxide 400 Mg Tab) 400 mg PO DAILY@0900 [facility] Last Admin: 03/18/21 08:21 Dose: 400 mg Documented by: Melatonin (Melatonin 3 Mg Tablet) 3 mg PO HS PRN PRN Reason: Insomnia Last Admin: 03/14/21 20:19 Dose: 3 mg Documented by: Naloxone HCl (Naloxone 0.4 Mg/Ml 1 Ml Vial) 0.2 mg IV Q2M PRN PRN Reason: Opioid Reversal Nystatin (Nystatin 100,000unit/Gm Cream 30 Gm Tube) 1 applic TOPICAL BID [facility]; Protocol Last Admin: 03/18/21 08:22 Dose: 1 applic Documented by: Nystatin (Nystatin 100,000 Unit/Gm Powd 15 Gm) 1 applic TOPICAL BID [facility]; Protocol Last Admin: 03/18/21 08:22 Dose: 1 applic Documented by: Ondansetron HCl (Ondansetron 4 Mg/2 Ml Vial) 4 mg IVP Q8HR PRN PRN Reason: Nausea And Vomiting Potassium Chloride (Potassium Chloride Er 10 Meq Tab.Er.Prt) 10 meq PO DAILY@0900 [facility] Last Admin: 03/18/21 08:22 Dose: 10 meq Documented by: Spironolactone (Spironolactone 25 Mg Tab) 25 mg PO DAILY [facility] Last Admin: 03/18/21 08:22 Dose: 25 mg Documented by: Past medical history to include: Pulmonary hypertension secondary, pacemaker, diabetes, CAD, left leg wound, cognitive impairment Social history: Currently getting rehab at [facility]. No smoking and no alcohol. Family history: Reviewed, noncontributory to presentation Physical examination: VITAL SIGNS: 97, 86, 20, 120/58, 94% room air GENERAL: Sitting up in a recliner, eating lunch, breathing better EYES: Pupils equal. Conjunctiva normal. HEENT: External appearance of nose and ears normal, oral cavity grossly normal. NECK: JVDt raised; masses not palpable. HEART: [First and second heart sounds are normal; edema present LUNGS:[ Respiratory rate increased; lungs clear ABDOMEN: Soft, distended nontender, liver spleen not palpable, no masses palpable. PSYCH: Answering questions; mood and affect normal. MUSCULAR skeletal: Evidence of OA EXTREMITY: Wound of lower extremity. With dressing INVESTIGATIONS, reviewed in the clinical context: March 17: Sodium 129 potassium 4.8 creatinine 0.94 March 16: Sodium 128. Potassium 4.6. Creatinine 0.73 Chest x-ray film personally reviewed by me-[March 16] venous prominence. Cardiomegaly. March 15: Sodium 128 potassium 4.2 BUN 19 creatinine 0.81 2-D echocardiogram: EF 20-25%. Moderate aortic regurgitation. Severe mitral regurgitation. Severe tricuspid regurgitation. Moderate pulmonary hypertension. WBC 6.9 hemoglobin 13 platelets 253 sodium 125 potassium 4.6 BUN 21 creatinine 0.77 Albumin 2.5 proBNP 26721 Coronavirus [PCR]:not detected EKG tracing personally reviewed by me-no sinus rhythm, poor R-wave progression, intraventricular block and nonspecific ST segment changes Chest x-ray film personally reviewed by me-severe cardiomegaly suggestive of pericardial effusion, left pleural effusion Assessment and plan: -Acute on chronic congestive heart failure exacerbation. Systolic dysfunction EF 20-25% From ischemic cardiomyopathy: Bed to IV Lasix discontinued. Strict I's and O's. Daily weights. Fluid restriction. Follow with cardiology. Aldactone. Started on Bumex 1 mg twice a day -Left pleural effusion secondary to CHF IV Lasix. Changed to Bumex -Moderate aortic regurgitation, severe mitral regurgitation, severe tricuspid regurgitation Follow clinically -Secondary pulmonary hypertension secondary to CHF Follow clinically -CAD with a prior history of coronary bypass Aspirin, Lipitor, Coreg -Mild cognitive impairment likely from Alzheimer's dementia Follow clinically -Secondary pulmonary hypertension secondary to CHF Follow clinically -Permanent pacemaker -Diabetes mellitus type 2 on oral hypoglycemic Start metformin 500 mg 3 times a day -Hyponatremia Fluid restriction. Cutback on free fluid. -Left lower extremity wounds. No cellulitis per ID. Recently IND. Patient off antibiotics. Local care. Oral intake improving. Accu-Cheks climbing. Start metformin 500 mg 3 times a day. Discussed with the patient. Follow Accu-Cheks.
[2021-03-18] MEDS ORDERED: glipiZIDE 5 MG TAB PO SCH (15:15)
[2021-03-18] MEDS: metFORMIN 500 MG TAB PO SCH (17:31)
[2021-03-18 17:41] LABS: Glucose,Whole Blood 195 mg/dL (75-99)
--- NOTE | 2021-03-18 18:24 | PN ---
PROGRESS NOTE DATE OF SERVICE: 03/18/2021 REASON FOR FOLLOWUP: Left lower extremity wound. INTERVAL HISTORY: The patient is afebrile. The patient is currently breathing comfortably on room air. Denies any chest pain, shortness of breath or cough. No abdominal pain or any worsening pain to the left leg. PHYSICAL EXAMINATION: Blood pressure is 101/55, pulse of , temperature 97. She is 96% on room air. General description is an elderly female lying in bed in no distress. RESPIRATORY SYSTEM: Unlabored breathing. Clear to auscultation anteriorly. HEART: S1, S2. Regular rate and rhythm. ABDOMEN: Soft. No tenderness. Left leg is currently dressed. No obvious drainage on the dressing. LABS: Blood cultures have been negative. DIAGNOSTIC IMPRESSION AND PLAN: Patient with left lower extremity wound with recent debridement at an outside facility. Patient currently does not have any evidence of cellulitis. Local wound care to continue with Santyl and moist dressing and continue with supportive care. Daughter at the bedside. Questions were answered. MMODL / IJN: [id number] /
[2021-03-18 20:05] LABS: Glucose,Whole Blood 206 mg/dL (75-99)
[2021-03-18] MEDS: ATORVASTATIN 20 MG TAB PO SCH (21:33)
[2021-03-18] MEDS: DONEPEZIL 10 MG TAB PO SCH (21:35)
[2021-03-19 06:28] LABS: African American GFR (CKD) 81 (>60 ml/min/1.73 sqM); Anion Gap 6 mmol/L; Blood Urea Nitrogen 25 mg/dL (7-17); Calcium 8.6 mg/dL (8.4-10.2); Carbon Dioxide 28 mmol/L (22-30); Chloride 95 mmol/L (98-107); Glucose 142 mg/dL (74-99); Non-African American GFR(CKD) 70 (>60 ml/min/1.73 sqM); Potassium 4.7 mmol/L (3.5-5.1); Sodium 129 mmol/L (137-145)
[2021-03-19] MEDS: HYDROcodone/APAP 5-325MG 1 EACH TAB PO PRN ×4 (06:31→22:03)
[2021-03-19 07:46] LABS: Glucose,Whole Blood 137 mg/dL (75-99)
[2021-03-19] MEDS: metFORMIN 500 MG TAB PO SCH ×3 (08:27→17:44)
[2021-03-19] MEDS: ISOSORBIDE MONONITRATE ER 30 MG TAB.ER.24H PO SCH (08:27)
[2021-03-19] MEDS: POTASSIUM CHLORIDE ER 10 MEQ TAB.ER.PRT PO SCH (08:27)
[2021-03-19] MEDS: INSULIN ASPART (NovoLOG) 100 UNIT/ML VIAL SQ SCH ×4 (08:27→22:03)
[2021-03-19] MEDS: SPIRONOLACTONE 25 MG TAB PO SCH (08:27)
[2021-03-19] MEDS: carvediloL 6.25 MG TAB PO SCH ×2 (08:27→22:03)
[2021-03-19] MEDS: MAGNESIUM OXIDE 400 MG TAB PO SCH (08:27)
[2021-03-19] MEDS: LOSARTAN 50 MG TAB PO SCH (08:27)
[2021-03-19] MEDS: CLOPIDOGREL 75 MG TAB PO SCH (08:27)
[2021-03-19] MEDS: ASPIRIN 81 MG PO SCH (08:27)
[2021-03-19] MEDS: NYSTATIN 100,000UNIT/GM CREAM 30 GM TUBE TOPICAL SCH ×2 (08:28→22:07)
[2021-03-19] MEDS: NYSTATIN 100,000 UNIT/GM POWD 15 GM TOPICAL SCH ×2 (08:28→22:07)
[2021-03-19] MEDS: BUMETANIDE 1 MG TAB PO SCH ×2 (10:50→22:03)
[2021-03-19 12:21] LABS: Glucose,Whole Blood 198 mg/dL (75-99)
--- NOTE | 2021-03-19 12:22 | P.PN ---
Subjective Progress Note Date: 03/19/21 History pleasant 80-year-old female patient with history of cardiomyopathy who presented with worsening congestive heart failure. She is feeling a bit better today. Denies any chest discomfort. Denies any shortness of breath but does continue to complain of some orthopnea which is chronic for her. Denies any dizziness or palpitations. Has had no chest discomfort, nausea or vomiting. She is unsure if her edema has improved. She continues on aspirin, Lipitor, Bumex, carvedilol, Plavix, donepezil, isosorbide, losartan, and spironolactone. She is planning to return to [facility] tomorrow. She follows with Dr. Kapadia as an outpatient. Objective - Vital Signs Vital signs: Vital Signs Temp 97.6 F 03/19/21 04:24 Pulse 84 03/19/21 08:31 Resp 16 03/19/21 04:24 BP 129/75 03/19/21 08:31 Pulse Ox 95 03/19/21 04:24 Intake & Output 03/18/21 03/19/21 03/19/21 18:59 06:59 18:59 Intake Total 420 240 Output Total 550 200 Balance -130 40 Intake: Oral 420 240 Output: Urine 550 200 Other: Voiding Method External Catheter External Catheter External Catheter # Bowel Movements 4 - Exam PHYSICAL EXAMINATION: HEENT: Head is atraumatic, normocephalic. Pupils equal, round. Neck is supple. There is no elevated jugular venous pressure. HEART EXAMINATION: Heart sounds regular, S1 and S2 normal. A holosystolic murmur noted at the apex. CHEST EXAMINATION: Lungs are clear to auscultation. No chest wall tenderness is noted on palpation or with deep breathing. ABDOMEN: Soft, nontender. Bowel sounds are heard. No organomegaly noted. EXTREMITIES: 2+ peripheral pulses with evidence of trace peripheral edema and no calf tenderness noted. - Labs CBC & Chem 7: 03/14/21 09:58 03/19/21 05:46 Labs: Abnormal Lab Results - Last 24 Hours (Table) 03/18/21 03/18/21 03/19/21 Range/Units 17:36 20:03 05:46 Sodium 129 L (137-145) mmol/L Chloride 95 L (98-107) mmol/L BUN 25 H (7-17) mg/dL Glucose 142 H (74-99) mg/dL POC Glucose (mg/dL) 195 H 206 H (75-99) mg/dL 03/19/21 Range/Units 07:36 Sodium (137-145) mmol/L Chloride (98-107) mmol/L BUN (7-17) mg/dL Glucose (74-99) mg/dL POC Glucose (mg/dL) 137 H (75-99) mg/dL Microbiology - Last 24 Hours (Table) 03/16/21 15:22 Blood Culture - Preliminary Blood No Growth after 48 hours Assessment and Plan Assessment: #1 congestive heart failure with history of severe ischemic cardiomyopathy #2 status post ICD implantation #3 history of cellulitis #4 history of diabetes #5 mitral regurgitation Plan: From cardiology 's perspective patient is stable. Plan to be discharged to rehab tomorrow. Medications were reviewed and we will continue the same. She'll follow-up with Dr. Kapadia as an outpatient at which time she'll be evalu ated for possibility of addition of [place] to her regimen. At this time will follow the patient on an as-needed basis. Please do not hesitate to contact us with questions. CONTENT ADMINISTRATOR note has been reviewed, I agree with a documented findings and plan of care. Patient was seen and examined.
[2021-03-19] MEDS: ALPRAZolam 0.25 MG TAB PO PRN ×2 (12:32→22:03)
[2021-03-19] MEDS: COLLAGENASE 250 UNIT/GM OINTMENT 30 GM TUBE TOPICAL SCH ×2 (14:47→21:48)
--- NOTE | 2021-03-19 15:37 | P.PN ---
Progress Note - Text Progress Note Date: 03/19/21 Chief Complaint: Short of breath This is a pleasant 80-year-old patient who follows with cardiologistDr Schultz. [facility]. Chronic stable medical conditions include bulbi hypertension, pacemaker, diabetes, coronary artery disease with a bypass over 10 years ago. Patient was discharged from [facility] 5 days ago. She was therefore a left leg wound that was I&D 8 and discharged with clindamycin and Levaquin for 7 days. Patient has slight cognitive impairment and not too good for details. Her daughter is at the bedside. She was noticed to be increasingly short of breath. Significant edema in the lower extremity. Minimal cough. Decreased appetite. Patient always sits up and sleep. Patient has not had a bowel movement for last 7 days. Patient is rather tired. Admitted with CHF exacerbation, left pleural effusion. Started on IV Lasix. EF 20-25%. 03/15/2021: Sitting up in a recliner. Breathing a bit better. On IV Lasix. Good urine output. Some pain in the left lower extremity wound site. Does have [place] for the same. Discussed with the patient and daughter at length to avoid taking more narcotics. 03/16/2021: Breathing better. Decreased to IV Lasix 40 mg every 12. Eating about 25%-50%. 03/17/2021: Sitting up in a recliner. Tired. Eating better. Daughter the bedside. Pain in the left leg. Sodium 129. Care was discussed at length with the patient and daughter the bedside. CODE STATUS DO NOT RESUSCITATE. Per ID no cellulitis of the left lower extremity. Wound 03/18/2021: Up in a recliner. Appetite is improving. Decreased pain in the left leg. Breathing better. Discussed with patient about cutting back free fluid. Feeling a bit better. 03/19/2021: Sitting up in a recliner. Family visiting. Oral intake good. No new issues. DC to [facility] tomorrow. Review of systems: Was done for constitutional, cardiovascular, GI, pulmonary. relevant finding as above Active Medications Acetaminophen (Acetaminophen Tab 325 Mg Tab) 650 mg PO Q6HR PRN PRN Reason: Mild Pain or Fever > 100.5 Last Admin: 03/16/21 09:12 Dose: 650 mg Documented by: Hydrocodone Bitart/Acetaminophen (Hydrocodone/Apap 5-325mg 1 Each Tab) 1 each PO Q4HR PRN PRN Reason: Pain Last Admin: 03/19/21 15:19 Dose: 1 each Documented by: Al Hydroxide/Mg Hydroxide (Mag Hydrox/Al Hydrox/Simeth 30 Ml Cup) 15 ml PO Q6HR PRN PRN Reason: Indigestion Alprazolam (Alprazolam 0.25 Mg Tab) 0.25 mg PO Q6HR PRN PRN Reason: Anxiety Last Admin: 03/19/21 12:32 Dose: 0.25 mg Documented by: Aspirin (Aspirin 81 Mg) 81 mg PO DAILY@0900 [facility] Last Admin: 03/19/21 08:27 Dose: 81 mg Documented by: Atorvastatin Calcium (Atorvastatin 20 Mg Tab) 20 mg PO HS@2100 [facility] Last Admin: 03/18/21 21:33 Dose: 20 mg Documented by: Bumetanide (Bumetanide 1 Mg Tab) 1 mg PO BID@0900,2100 [facility] Last Admin: 03/19/21 10:50 Dose: 1 mg Documented by: Calcium Carbonate/Glycine (Calcium Carbonate 500 Mg Chewable) 1,000 mg PO Q4HR PRN PRN Reason: Dyspepsia Carvedilol (Carvedilol 6.25 Mg Tab) 6.25 mg PO BID@0900,2100 [facility] Last Admin: 03/19/21 08:27 Dose: 6.25 mg Documented by: Clopidogrel Bisulfate (Clopidogrel 75 Mg Tab) 75 mg PO DAILY@0900 [facility] Last Admin: 03/19/21 08:27 Dose: 75 mg Documented by: Collagenase (Collagenase 250 Unit/Gm Ointment 30 Gm Tube) 1 applic TOPICAL Q12HR [facility]; Protocol Last Admin: 03/19/21 14:47 Dose: Not Given Documented by: Donepezil HCl (Donepezil 10 Mg Tab) 10 mg PO HS@2100 [facility] Last Admin: 03/18/21 21:35 Dose: 10 mg Documented by: Insulin Aspart (Insulin Aspart (Novolog) 100 Unit/Ml Vial) 0 unit SQ [facility]; Protocol Last Admin: 03/19/21 12:34 Dose: 2 unit Documented by: Isosorbide Mononitrate (Isosorbide Mononitrate Er 30 Mg Tab.Er.24h) 30 mg PO DAILY@0900 [facility] Last Admin: 03/19/21 08:27 Dose: 30 mg Documented by: Lactulose (Lactulose 20 Gm/30 Ml Cup) 20 gm PO DAILY PRN PRN Reason: Constipation Losartan Potassium (Losartan 50 Mg Tab) 50 mg PO DAILY [facility] Last Admin: 03/19/21 08:27 Dose: 50 mg Documented by: Magnesium Hydroxide (Magnesium Hydroxide 2,400 Mg/10 Ml Cup) 2,400 mg PO DAILY PRN PRN Reason: Constipation Magnesium Oxide (Magnesium Oxide 400 Mg Tab) 400 mg PO DAILY@0900 [facility] Last Admin: 03/19/21 08:27 Dose: 400 mg Documented by: Melatonin (Melatonin 3 Mg Tablet) 3 mg PO HS PRN PRN Reason: Insomnia Last Admin: 03/14/21 20:19 Dose: 3 mg Documented by: Metformin HCl (Metformin 500 Mg Tab) 500 mg PO AC-TID [facility] Last Admin: 03/19/21 12:34 Dose: 500 mg Documented by: Naloxone HCl (Naloxone 0.4 Mg/Ml 1 Ml Vial) 0.2 mg IV Q2M PRN PRN Reason: Opioid Reversal Nystatin (Nystatin 100,000unit/Gm Cream 30 Gm Tube) 1 applic TOPICAL BID [facility]; Protocol Last Admin: 03/19/21 08:28 Dose: 1 applic Documented by: Nystatin (Nystatin 100,000 Unit/Gm Powd 15 Gm) 1 applic TOPICAL BID [facility]; Protocol Last Admin: 03/19/21 08:28 Dose: 1 applic Documented by: Ondansetron HCl (Ondansetron 4 Mg/2 Ml Vial) 4 mg IVP Q8HR PRN PRN Reason: Nausea And Vomiting Potassium Chloride (Potassium Chloride Er 10 Meq Tab.Er.Prt) 10 meq PO DAILY@0900 [facility] Last Admin: 03/19/21 08:27 Dose: 10 meq Documented by: Spironolactone (Spironolactone 25 Mg Tab) 25 mg PO DAILY [facility] Last Admin: 03/19/21 08:27 Dose: 25 mg Documented by: Past medical history to include: Pulmonary hypertension secondary, pacemaker, diabetes, CAD, left leg wound, cognitive impairment Social history: Currently getting rehab at [facility]. No smoking and no alcohol. Family history: Reviewed, noncontributory to presentation Physical examination: VITAL SIGNS: 97.9, 70, 16, 130/64, 95% room air GENERAL: Sitting up in a recliner, comfortable EYES: Pupils equal. Conjunctiva normal. HEENT: External appearance of nose and ears normal, oral cavity grossly normal. NECK: JVDt raised; masses not palpable. HEART: [First and second heart sounds are normal; edema present LUNGS:[ Respiratory rate increased; lungs clear ABDOMEN: Soft, distended nontender, liver spleen not palpable, no masses palpable. PSYCH: Answering questions; mood and affect normal. MUSCULAR skeletal: Evidence of OA EXTREMITY: Wound of lower extremity. With dressing INVESTIGATIONS, reviewed in the clinical context: March 19: Sodium 129 potassium 4.7 creatinine 0.81 March 17: Sodium 129 potassium 4.8 creatinine 0.94 March 16: Sodium 128. Potassium 4.6. Creatinine 0.73 Chest x-ray film personally reviewed by me-[March 16] venous prominence. Cardiomegaly. March 15: Sodium 128 potassium 4.2 BUN 19 creatinine 0.81 2-D echocardiogram: EF 20-25%. Moderate aortic regurgitation. Severe mitral regurgitation. Severe tricuspid regurgitation. Moderate pulmonary hypertension. WBC 6.9 hemoglobin 13 platelets 253 sodium 125 potassium 4.6 BUN 21 creatinine 0.77 Albumin 2.5 proBNP [id number] Coronavirus [PCR]:not detected EKG tracing personally reviewed by me-no sinus rhythm, poor R-wave progression, intraventricular block and nonspecific ST segment changes Chest x-ray film personally reviewed by me-severe cardiomegaly suggestive of pericardial effusion, left pleural effusion Assessment and plan: -Acute on chronic congestive heart failure exacerbation. Systolic dysfunction EF 20-25% From ischemic cardiomyopathy: Better IV Lasix discontinued. Strict I's and O's. Daily weights. Fluid restriction. Follow with cardiology. Aldactone. Bumex 1 mg twice a day -Left pleural effusion secondary to CHF IV Lasix. Changed to Bumex -Moderate aortic regurgitation, severe mitral regurgitation, severe tricuspid regurgitation Follow clinically -Secondary pulmonary hypertension secondary to CHF Follow clinically -CAD with a prior history of coronary bypass Aspirin, Lipitor, Coreg -Mild cognitive impairment likely from Alzheimer's dementia Follow clinically -Secondary pulmonary hypertension secondary to CHF Follow clinically -Permanent pacemaker -Diabetes mellitus type 2 on oral hypoglycemic metformin 500 mg 3 times a day -Hyponatremia Fluid restriction. Cutback on free fluid. -Left lower extremity wounds. No cellulitis per ID. Recently IND. Patient off antibiotics. Local care. -DO NOT RESUSCITATE Continue current medications. Discharged to [facility] tomorrow.
[2021-03-19 17:30] LABS: Glucose,Whole Blood 158 mg/dL (75-99)
[2021-03-19 21:34] LABS: Glucose,Whole Blood 159 mg/dL (75-99)
[2021-03-19] MEDS: DONEPEZIL 10 MG TAB PO SCH (22:03)
[2021-03-19] MEDS: ATORVASTATIN 20 MG TAB PO SCH (22:03)
--- NOTE | 2021-03-20 01:10 | PN ---
PROGRESS NOTE DATE OF SERVICE: 03/19/2021 REASON FOR FOLLOWUP: Left leg wound. INTERVAL HISTORY: The patient is afebrile. The patient is currently breathing comfortably. Pain to the left leg is currently controlled with pain medication. No chest pain, shortness of breath or cough. No abdominal pain or diarrhea. PHYSICAL EXAMINATION: Blood pressure 109/62 with a pulse of 71, temperature 98.2. She is 95% on room air. General description is an elderly female lying in bed in no distress. RESPIRATORY SYSTEM: Unlabored breathing. Decreased intensity of breath sounds. No wheeze. HEART: S1, S2. Regular rate and rhythm. ABDOMEN: Soft. No tenderness. Left leg is currently dressed. No obvious drainage on the dressing. LABS: Creatinine 0.81. Blood culture has been negative. DIAGNOSTIC IMPRESSION AND PLAN: Patient with left leg wound, status post debridement, and has been treated with antibiotics for cellulitis, currently with no evidence of any cellulitis. Afebrile. White count normal. Recommend local care to continue with Santyl moist dressing and continue supportive care. MMODL / IJN: [id number] /
[2021-03-20] MEDS: HYDROcodone/APAP 5-325MG 1 EACH TAB PO PRN ×2 (05:55→12:39)
[2021-03-20 07:35] LABS: Glucose,Whole Blood 146 mg/dL (75-99)
[2021-03-20] MEDS: INSULIN ASPART (NovoLOG) 100 UNIT/ML VIAL SQ SCH ×2 (08:05→12:39)
[2021-03-20] MEDS: carvediloL 6.25 MG TAB PO SCH (08:06)
[2021-03-20] MEDS: MAGNESIUM OXIDE 400 MG TAB PO SCH (08:06)
[2021-03-20] MEDS: ASPIRIN 81 MG PO SCH (08:06)
[2021-03-20] MEDS: POTASSIUM CHLORIDE ER 10 MEQ TAB.ER.PRT PO SCH (08:06)
[2021-03-20] MEDS: CLOPIDOGREL 75 MG TAB PO SCH (08:06)
[2021-03-20] MEDS: SPIRONOLACTONE 25 MG TAB PO SCH (08:06)
[2021-03-20] MEDS: BUMETANIDE 1 MG TAB PO SCH (08:06)
[2021-03-20] MEDS: LOSARTAN 50 MG TAB PO SCH (08:06)
[2021-03-20] MEDS: metFORMIN 500 MG TAB PO SCH ×2 (08:06→12:42)
[2021-03-20] MEDS: ISOSORBIDE MONONITRATE ER 30 MG TAB.ER.24H PO SCH (08:06)
[2021-03-20] MEDS: NYSTATIN 100,000 UNIT/GM POWD 15 GM TOPICAL SCH (08:07)
[2021-03-20] MEDS: NYSTATIN 100,000UNIT/GM CREAM 30 GM TUBE TOPICAL SCH (08:07)
[2021-03-20 08:11] VITALS: PULSE 79
[2021-03-20 12:34] LABS: Glucose,Whole Blood 202 mg/dL (75-99)
[2021-03-20] MEDS: COLLAGENASE 250 UNIT/GM OINTMENT 30 GM TUBE TOPICAL SCH (12:40)
[2021-03-20 13:20] VITALS: BP 106/61; RESP 16; TEMP 97.5
--- NOTE | 2021-03-20 14:51 | P.DS ---
Providers Date of admission: 03/14/21 12:07 Expected date of discharge: 03/20/21 Attending physician: Rober Steen Consults: 03/14/21 12:08 Consult Physician Routine Consulting Provider: Araseli Metzger Consult Reason/Comments: CHF, Do you want consulting provider notified?: Yes 03/14/21 12:51 Consult Physician Routine Consulting Provider: Kate Oliver Consult Reason/Comments: leg wounds Do you want consulting provider notified?: Yes Primary care physician: [facility] Course: Chief Complaint: Short of breath This is a pleasant 80-year-old patient who follows with cardiologistDr Schultz. Patient's currently a resident of [facility]. Chronic stable medical conditions include bulbi hypertension, pacemaker, diabetes, coronary artery disease with a bypass over 10 years ago. Patient was discharged from [facility] 5 days ago. She was therefore a left leg wound that was I&D 8 and discharged with clindamycin and Levaquin for 7 days. Patient has slight cognitive impairment and not too good for details. Her daughter is at the bedside. She was noticed to be increasingly short of breath. Significant edema in the lower extremity. Minimal cough. Decreased appetite. Patient always sits up and sleep. Patient has not had a bowel movement for last 7 days. Patient is rather tired. Admitted with CHF exacerbation, left pleural effusion. Started on IV Lasix. EF 20-25%. Patient advised to cut back on fluid intake. Discussed with patient daughter. CODE STATUS DO NOT RESUSCITATE. Put infectious disease no cellulitis of the left lower extremity. Wound. Local care. 03/20/2021: Up in a recliner. Oral intake fair. Discussed with the patient. Decreased taste to ECF today. Med Peds: Dr. Oliver from ID Dr. Metzger from cardiology Past medical history to include: Pulmonary hypertension secondary, pacemaker, diabetes, CAD, left leg wound, cognitive impairment Social history: Currently getting rehab at [facility]. No smoking and no alcohol. Family history: Reviewed, noncontributory to presentation Physical examination: VITAL SIGNS: 97.5, 80, 16, 106/61, 97% on room air GENERAL: Sitting up in a recliner, comfortable EYES: Pupils equal. Conjunctiva normal. HEENT: External appearance of nose and ears normal, oral cavity grossly normal. NECK: JVDt raised; masses not palpable. HEART: [First and second heart sounds are normal; edema present LUNGS:[ Respiratory rate increased; lungs clear ABDOMEN: Soft, distended nontender, liver spleen not palpable, no masses palpable. PSYCH: Answering questions; mood and affect normal. MUSCULAR skeletal: Evidence of OA EXTREMITY: Wound of lower extremity. With dressing INVESTIGATIONS, reviewed in the clinical context: March 19: Sodium 129 potassium 4.7 creatinine 0.81 Chest x-ray film personally reviewed by me-[March 16] venous prominence. Cardiomegaly. March 15: Sodium 128 potassium 4.2 BUN 19 creatinine 0.81 2-D echocardiogram: EF 20-25%. Moderate aortic regurgitation. Severe mitral regurgitation. Severe tricuspid regurgitation. Moderate pulmonary hypertension. WBC 6.9 hemoglobin 13 platelets 253 sodium 125 potassium 4.6 BUN 21 creatinine 0.77 Albumin 2.5 proBNP 61250 Coronavirus [PCR]:not detected EKG tracing personally reviewed by me-no sinus rhythm, poor R-wave progression, intraventricular block and nonspecific ST segment changes Chest x-ray film personally reviewed by me-severe cardiomegaly suggestive of pericardial effusion, left pleural effusion Assessment and plan: -Acute on chronic congestive heart failure exacerbation. Systolic dysfunction EF 20-25% From ischemic cardiomyopathy: Better IV Lasix discontinued. Fluid restriction. Follow with cardiology. Aldactone. Bumex 1 mg twice a day -Left pleural effusion secondary to CHF: Better IV Lasix. Changed to Bumex -Moderate aortic regurgitation, severe mitral regurgitation, severe tricuspid regurgitation Follow clinically -Secondary pulmonary hypertension secondary to CHF Follow clinically -CAD with a prior history of coronary bypass Aspirin, Lipitor, Coreg -Mild cognitive impairment likely from Alzheimer's dementia Follow clinically -Secondary pulmonary hypertension secondary to CHF Follow clinically -Permanent pacemaker -Diabetes mellitus type 2 on oral hypoglycemic metformin 500 mg 3 times a day -Hyponatremia Fluid restriction. Cutback on free fluid. -Left lower extremity wounds. No cellulitis per ID. Recently IND. Patient off antibiotics. Local care. -DO NOT RESUSCITATE Disposition: F/[facility] Patient Condition at Discharge: Stable Plan - Discharge Summary Discharge Rx Participant: Yes New Discharge Prescriptions: New Spironolactone [Aldactone] 25 mg PO DAILY tab Melatonin 3 mg PO HS PRN tablet PRN Reason: Insomnia Nystatin 100,000 Unit/gm Powd [Mycostatin Powder] 1 applic TOPICAL BID gm carvediloL [Coreg] 6.25 mg PO BID@0900,2100 tab Losartan [Cozaar] 50 mg PO DAILY tab INSULIN ASPART (NovoLOG) [NovoLOG (formulary)] 0 unit SQ ACHS ml Continue Collagenase [Santyl] 1 applic TOPICAL Q12H Potassium Chloride ER [K-Dur 10] 10 meq PO DAILY@0900 Bumetanide [BUMEX] 1 mg PO BID@0900,2100 Clopidogrel [Plavix] 75 mg PO DAILY@0900 Aspirin EC [Ecotrin Low Dose] 81 mg PO DAILY@0900 Donepezil [Aricept] 10 mg PO HS@2100 HYDROcodone/APAP 5-325MG [[place] 5-325] 1 tab PO Q4HR PRN #18 tab PRN Reason: Pain Magnesium Oxide 400 mg PO DAILY@0900 Atorvastatin [Lipitor] 20 mg PO HS@2100 Isosorbide Mononitrate ER [Imdur] 30 mg PO DAILY@0900 Discontinued diphenhydrAMINE [Benadryl] 25 mg PO Q6H PRN PRN Reason: Itching Clindamycin HCl 300 mg PO TID@0600,1400,2200 carvediloL [Coreg] 3.125 mg PO BID@0900,2099 Levofloxacin [Levaquin] 500 mg PO HS@2099 Losartan Potassium [Cozaar] 25 mg PO DAILY@0900 No Action glipiZIDE [Glucotrol] 5 mg PO DAILY@0900 Discharge Medication List Aspirin EC [Ecotrin Low Dose] 81 mg PO DAILY@0900 03/14/21 [History] Atorvastatin [Lipitor] 20 mg PO HS@209903/14/21 [History] Bumetanide [BUMEX] 1 mg PO BID@0900,209903/14/21 [History] Clopidogrel [Plavix] 75 mg PO DAILY@0900 03/14/21 [History] Collagenase [Santyl] 1 applic TOPICAL Q12H 03/14/21 [History] Donepezil [Aricept] 10 mg PO HS@209903/14/21 [History] Isosorbide Mononitrate ER [Imdur] 30 mg PO DAILY@0900 03/14/21 [History] Magnesium Oxide 400 mg PO DAILY@0903/14/21 [History] Potassium Chloride ER [K-Dur 10] 10 meq PO DAILY@0900 03/14/21 [History] glipiZIDE [Glucotrol] 5 mg PO DAILY@0900 03/14/21 [History] HYDROcodone/APAP 5-325MG [[place] 5-325] 1 tab PO Q4HR PRN #18 tab 03/20/21 [Rx] INSULIN ASPART (NovoLOG) [NovoLOG (formulary)] 0 unit SQ ACHS ml 03/20/21 [Rx] Losartan [Cozaar] 50 mg PO DAILY tab 03/20/21 [Rx] Melatonin 3 mg PO HS PRN tablet 03/20/21 [Rx] Nystatin 100,000 Unit/gm Powd [Mycostatin Powder] 1 applic TOPICAL BID gm 03/20/21 [Rx] Spironolactone [Aldactone] 25 mg PO DAILY tab 03/20/21 [Rx] carvediloL [Coreg] 6.25 mg PO BID@0900,2100 tab 03/20/21 [Rx] Follow up Appointment(s)/Referral(s): Faraz Loza MD [STAFF PHYSICIAN] - 1-2 days Cole Kapadia MD [REFERRING] - 1 Week Patient Instructions/Handouts: Heart Failure (DC), Cellulitis (DC) Activity/Diet/Wound Care/Special Instructions: CHF Weigh yourself every morning after you urinate. If you gain 2-3 pounds overnight or 5 pounds in one week, call your primary physician for guidance on your medications. Keep a log of your weights. Avoid salt, or foods with hidden salt. Extra salt makes your heart work harder and traps the fluid in your body for longer. Take all of your medications as directed, especially your water pills. NEVER skip a dose. Elevate your legs when you are not up moving around to help with circulation and prevent swelling. Call your physician if you notice any extra swelling in your legs, ankles, feet or abdomen, if you have a new dry cough, if your shortness of breath worsens with activity or at rest, or if you feel more fatigued. Care Plan Goals (MU): Nutrition: glucerna with low oral intake as needed to meet estimated needs, Emmanuel BID x2 weeks for wound healing
--- NOTE | 2021-03-20 22:00 | P.PN ---
Progress Note - Text Progress Note Date: 03/20/21 INTERVAL HISTORY: The patient remains to be afebrile. The patient is breathing comfortably on ro om air. Pain to the left leg is currently controlled with pain medication. No chest pain, shortness of breath or cough. No abdominal pain or diarrhea. PHYSICAL EXAMINATION: Blood pressure 110/60 with a pulse of 71, temperature 98.2. She is 95% on room air. General description is an elderly female lying in bed in no distress. RESPIRATORY SYSTEM: Unlabored breathing. Decreased intensity of breath sounds. No wheeze. HEART: S1, S2. Regular rate and rhythm. ABDOMEN: Soft. No tenderness. Left leg is currently dressed. No obvious drainage on the dressing. LABS: Blood culture has been negative. DIAGNOSTIC IMPRESSION AND PLAN: Patient with left leg wound, status post debridement, and has been treated with antibiotics for cellulitis, currently with no evidence of any cellulitis. Pt is afebrile. White count normal will continue with local care with Santyl moist dressing and continue supportive care.
== END 2021-03-20 15:44 | DRG 292 ==
LOC: EC 09:35 → 3SCARD 12:07 → 5NMEDONC 03-18 13:54
PROVIDERS: ADMIT Hospitalist; ATTEND Hospitalist
DX: I11.0 Hypertensive heart disease with heart failure (principal); E87.1 Hypo-osmolality and hyponatremia; L03.115 Cellulitis of right lower limb; L03.116 Cellulitis of left lower limb; I25.10 Atherosclerotic heart disease of native coronary artery without angina pectoris; G30.9 Alzheimer's disease, unspecified; I27.29 Other secondary pulmonary hypertension; I50.23 Acute on chronic systolic (congestive) heart failure; F02.80 Dementia in other diseases classified elsewhere, unspecified severity, without behavioral disturbance, psychotic disturbance, mood disturbance, and anxiety; Z66 Do not resuscitate; Z20.822 Contact with and (suspected) exposure to COVID-19; Z95.1 Presence of aortocoronary bypass graft; E78.5 Hyperlipidemia, unspecified; I08.3 Combined rheumatic disorders of mitral, aortic and tricuspid valves; E11.9 Type 2 diabetes mellitus without complications; I49.3 Ventricular premature depolarization; Z79.02 Long term (current) use of antithrombotics/antiplatelets; Z79.899 Other long term (current) drug therapy; I25.5 Ischemic cardiomyopathy; I25.2 Old myocardial infarction; Z79.82 Long term (current) use of aspirin; Z79.84 Long term (current) use of oral hypoglycemic drugs; Z95.810 Presence of automatic (implantable) cardiac defibrillator; Z88.2 Allergy status to sulfonamides
CPT/HCPCS: 36415; 71046; 80048; 80053; 83036; 83605; 83735; 83880; 84145; 84484; 85025; 85610; 85730; 86140; 87040; 87635; 93005; 93306; 99285

== ENCOUNTER 2021-04-16 17:36 | Inpatient (IN) | payer MEDICARE ==
[2021-04-16] MEDS ORDERED: SODIUM CHLORIDE 0.9% 1,000 ML IV STA (22:45)
[2021-04-16] MEDS ORDERED: SODIUM CHLORIDE 0.9% 500 ML 500 ML IV STA (22:45)
--- NOTE | 2021-04-16 22:47 | ED ---
Recheck HPI - General Chief Complaint: Recheck/Abnormal Lab/Rx Stated Complaint: Leg wound/pain Time Seen by Provider: 04/16/21 22:35 Source: patient, family, RN notes reviewed Mode of arrival: wheelchair Limitations: no limitations - History of Present Illness Initial Comments: 81-year-old female with a history of a chronic left leg wound which is been followed closely by wound care which over last several days and started developing a follow-up smell increased localized erythema patient also is had increased pain and difficulty walking because of this. She denies any overt fevers chills or sweats. She was instructed to come to the hospital for evaluation by visiting nurses. MD Complaint: wound re-check - Related Data Home Medications Medication Instructions Recorded Confirmed Aspirin EC [Ecotrin Low Dose] 81 mg PO DAILY@0900 03/14/21 03/14/21 Atorvastatin [Lipitor] 20 mg PO HS@2100 03/14/21 03/14/21 Bumetanide [BUMEX] 1 mg PO BID@0900,209903/14/21 03/14/21 Clopidogrel [Plavix] 75 mg PO DAILY@0900 03/14/21 03/14/21 Collagenase [Santyl] 1 applic TOPICAL Q12H 03/14/21 03/14/21 Donepezil [Aricept] 10 mg PO HS@2100 03/14/21 03/14/21 Isosorbide Mononitrate ER [Imdur] 30 mg PO DAILY@0900 03/14/21 03/14/21 Magnesium Oxide 400 mg PO DAILY@0900 03/14/21 03/14/21 Potassium Chloride ER [K-Dur 10] 10 meq PO DAILY@0900 03/14/21 03/14/21 glipiZIDE [Glucotrol] 5 mg PO DAILY@0900 03/14/21 03/14/21 Previous Rx's Medication Instructions Recorded HYDROcodone/APAP 5-325MG [[place] 1 tab PO Q4HR PRN #18 tab 03/20/21 5-325] INSULIN ASPART (NovoLOG) [NovoLOG 0 unit SQ ACHS ml 03/20/21 (formulary)] Losartan [Cozaar] 50 mg PO DAILY tab 03/20/21 Melatonin 3 mg PO HS PRN tablet 03/20/21 Nystatin 100,000 Unit/gm Powd 1 applic TOPICAL BID gm 03/20/21 [Mycostatin Powder] Spironolactone [Aldactone] 25 mg PO DAILY tab 03/20/21 carvediloL [Coreg] 6.25 mg PO BID@0900,2100 tab 03/20/21 Allergies Allergy/AdvReac Type Severity Reaction Status Date / Time Sulfa (Sulfonamide Allergy Anaphylaxis Verified 04/16/21 18:31 Antibiotics) Review of Systems ROS Statement: Those systems with pertinent positive or pertinent negative responses have been documented in the HPI. ROS Other: All systems not noted in ROS Statement are negative. Past Medical History Past Medical History: Diabetes Mellitus, Hypertension Additional Past Medical History / Comment(s): Cardiomyopathy, DM TyII, Bronchitis. chronic wound to back of left calf. Last Myocardial Infarction Date:: 2010 History of Any Multi-Drug Resistant Organisms: None Reported Past Surgical History: Pacemaker Additional Past Surgical History / Comment(s): CABG x3 2010?-year unsure. Past Anesthesia/Blood Transfusion Reactions: No Reported Reaction Type of Cardiac Device: AICD Device Placement Date:: 2020 Past Psychological History: No Psychological Hx Reported Smoking Status: Never smoker Past Alcohol Use History: None Reported Past Drug Use History: None Reported - Past Family History Father Family Medical History: No Reported History Mother Family Medical History: No Reported History General Exam Limitations: no limitations General appearance: alert, in no apparent distress Head exam: Present: atraumatic, normocephalic, normal inspection Eye exam: Present: normal appearance, PERRL, EOMI. Absent: scleral icterus, conjunctival injection, periorbital swelling ENT exam: Present: normal exam, mucous membranes moist Neck exam: Present: normal inspection. Absent: tenderness, meningismus, lymphadenopathy Respiratory exam: Present: normal lung sounds bilaterally. Absent: respiratory distress, wheezes, rales, rhonchi, stridor Cardiovascular Exam: Present: regular rate, normal rhythm, normal heart sounds. Absent: systolic murmur, diastolic murmur, rubs, gallop, clicks GI/Abdominal exam: Present: soft, normal bowel sounds. Absent: distended, tenderness, guarding, rebound, rigid Extremities exam: Present: full ROM, normal capillary refill, other (Patient does have evidence of a large wound on the left leg localized erythema fall smell. Tendons are noted through the wound. Also a pressure sore on the plantar aspect of the left heel ). Absent: tenderness, pedal edema, joint swelling, calf tenderness Back exam: Present: normal inspection Neurological exam: Present: alert, oriented X3, CN II-XII intact Psychiatric exam: Present: normal affect, normal mood Skin exam: Present: warm, dry, intact, normal color. Absent: rash Course Vital Signs 04/16/21 18:26 Temperature 98.4 F Pulse Rate 89 Respiratory 20 Rate Blood Pressure 120/74 O2 Sat by Pulse 97 Oximetry Medical Decision Making - Medical Decision Making Case is discussed with Dr. Gonzalez patient will be admitted with consultation from wound care tomorrow. Disposition Clinical Impression: Open wound, Left leg cellulitis, Failure of outpatient treatment Disposition: ADMITTED IP TO THIS HOSP Condition: Fair Referrals: Armand Menendez DO [Primary Care Provider] - 1-2 days
[2021-04-16] MEDS ORDERED: PIPERACILLIN-TAZOBACTAM 3.375 GM in SODIUM CHLORIDE 0.9% 100 ML IVPB ONE (23:00)
[2021-04-16] MEDS ORDERED: ACETAMINOPHEN TAB 325 MG TAB PO PRN (23:05)
[2021-04-16] MEDS ORDERED: NALOXONE 0.4 MG/ML 1 ML VIAL IV PRN (23:05)
[2021-04-16] MEDS ORDERED: HYDROmorphone 1 MG/ML 1 ML SYRINGE IVP STA (23:07)
[2021-04-16 23:32] LABS: Basophils # (A) 0.1 k/uL (0-0.2); Basophils % (A) 1 %; Eosinophils # (A) 0.2 k/uL (0-0.7); Eosinophils % (A) 2 %; HCT 40.6 % (34.0-46.0); HGB 13.6 gm/dL (11.4-16.0); Lymphocytes # (A) 2.3 k/uL (1.0-4.8); Lymphocytes % (A) 26 %; MCH 29.8 pg (25.0-35.0); MCHC 33.5 g/dL (31.0-37.0); Monocytes # (A) 0.4 k/uL (0-1.0); Monocytes % (A) 5 %; Neutrophils # (A) 5.8 k/uL (1.3-7.7); Neutrophils % (A) 65 %; Platelet Count 291 k/uL (150-450); RBC 4.57 m/uL (3.80-5.40); RDW 14.4 % (11.5-15.5); WBC 8.9 k/uL (3.8-10.6)
[2021-04-17 00:05] LABS: ALT 15 U/L (4-34); AST 28 U/L (14-36); African American GFR (CKD) 63 (>60 ml/min/1.73 sqM); Albumin 4.1 g/dL (3.5-5.0); Alkaline Phosphatase 255 U/L (38-126); Anion Gap 12 mmol/L; Blood Urea Nitrogen 62 mg/dL (7-17); Calcium 9.8 mg/dL (8.4-10.2); Carbon Dioxide 22 mmol/L (22-30); Chloride 96 mmol/L (98-107); Creatine Kinase <20 U/L (30-135); Glucose 76 mg/dL (74-99); Non-African American GFR(CKD) 55 (>60 ml/min/1.73 sqM); Potassium 5.1 mmol/L (3.5-5.1); Sodium 130 mmol/L (137-145); Total Bilirubin 0.7 mg/dL (0.2-1.3); Total Protein 8.4 g/dL (6.3-8.2)
[2021-04-17] MEDS: HYDROmorphone 0.5 MG/0.5 ML SYRINGE IVP PRN ×3 (02:32→14:00)
[2021-04-17] MEDS: PIPERACILLIN-TAZOBACTAM 3.375 GM in SODIUM CHLORIDE 0.9% 100 ML IVPB SCH ×3 (08:54→23:45)
[2021-04-17 09:05] LABS: Glucose,Whole Blood 78 mg/dL (75-99)
[2021-04-17] MEDS: POTASSIUM CHLORIDE ER 10 MEQ TAB.ER.PRT PO SCH (09:43)
[2021-04-17] MEDS: SPIRONOLACTONE 25 MG TAB PO SCH (09:43)
[2021-04-17] MEDS: LOSARTAN 50 MG TAB PO SCH (09:43)
[2021-04-17] MEDS: ISOSORBIDE MONONITRATE ER 30 MG TAB.ER.24H PO SCH (09:44)
[2021-04-17] MEDS: MAGNESIUM OXIDE 400 MG TAB PO SCH (09:44)
[2021-04-17] MEDS: carvediloL 6.25 MG TAB PO SCH ×2 (09:44→19:57)
[2021-04-17] MEDS: BUMETANIDE 1 MG TAB PO SCH ×2 (09:44→19:58)
[2021-04-17] MEDS: glipiZIDE 5 MG TAB PO SCH (10:08)
[2021-04-17] MEDS: CLOPIDOGREL 75 MG TAB PO SCH (12:36)
[2021-04-17] MEDS: ASPIRIN 81 MG PO SCH (12:36)
--- NOTE | 2021-04-17 13:23 | P.CONS ---
History of Present Illness - Reason for Consult Consult date: 04/17/21 wound care - History of Present Illness This is a 81-year-old patient known to the wound care center with a nonhealing ulceration to the posterior aspect of the right lower leg. The ulceration has tendon exposed. She also has a pressure ulcer to the right calcaneus stage II. Patient had a surgical debridement of the ulceration to the left posterior lower extremity. She says pressure ulcer to the left calcaneus and a nonhealing ulceration to the dorsal aspect of the left great toe. Patient history of diabetes, coronary artery disease with a EF of 20-25%, peripheral vascular disease. Patient is currently utilizing Santyl to the sites. Per the granddaughter the ulceration started while she was in the hospital a few weeks ago. Original cause of wound was Gradually Appeared. The wound is currently classified as a Grade 2 wound with etiologies of Diabetic Wound/Ulcer of the Lower Extremity and Arterial Insufficiency Ulcer and is located on the Left,Posterior Lower Leg. The wound measures 8.5cm length x 8cm width x 0.6cm depth; 53.407cm^2 area and 32.044cm^3 volume. There is bone, joint, muscle, tendon, Fat Layer (Subcutaneous Tissue), and fascia exposed. There is no tunneling or undermining noted. There is a medium amount of serous drainage noted. The wound margin is distinct with the outline attached to the wound base. There is small (1-33%) pink granulation within the wound bed. There is a large (67-100%) amount of necrotic tissue within the wound bed including Adherent Slough. The periwound skin appearance had no abnormalities noted for texture. The periwound skin appearance exhibited: Dry/Scaly, Erythema. The periwound skin appearance did not exhibit: Maceration. The surrounding wound skin color is noted with erythema which is circumferential. Original cause of wound was Pressure Injury. The wound is currently classified as a Grade 2 wound with etiologies of Diabetic Wound/Ulcer of the Lower Extremity and Pressure Ulcer and is located on the Left Calcaneus. The wound measures 2cm length x 2.8cm width x 0.1cm depth; 4.398cm^2 area and 0.44cm^3 volume. The wound is limited to skin breakdown. There is no tunneling or undermining noted. There is a none present amount of drainage noted. The wound margin is flat and intact. There is no granulation within the wound bed. There is a large (67-100%) amount of necrotic tissue within the wound bed including Eschar. The periwound skin appearance had no abnormalities noted for color. The periwound skin appearance exhibited: Callus, Dry/Scaly. The periwound skin appearance did not exhibit: Crepitus, Excoriation, Induration, Rash, Scarring, Maceration. Periwound temperature was noted as No Abnormality. Original cause of wound was Not Known. The wound is currently classified as a Grade 2 wound with etiology of Diabetic Wound/Ulcer of the Lower Extremity and is located on the Left,Dorsal Toe Great. The wound measures 1.2cm length x 0.7cm width x 0.1cm depth; 0.66cm^2 area and 0.066cm^3 volume. The wound is limited to skin breakdown. There is no tunneling or undermining noted. There is a small amount of serous drainage noted. The wound margin is flat and intact. There is no granulation within the wound bed. There is a large (67-100%) amount of necrotic tissue within the wound bed including Adherent Slough. The periwound skin appearance had no abnormalities noted for texture. The periwound skin appearance had no abnormalities noted for color. The periwound skin appearance exhibited: Dry/Scaly. The periwound skin appearance did not exhibit: Maceration. Periwound temperature was noted as No Abnormality. Review Of Systems: Constitutional: No fever, no chills, no night sweats. No weight change. No weakness, fatigue or lethargy. No daytime sleepiness. Integumentary:reports wounds, no lesions. No rash or pruritus. No unusual bruising. No change in hair or nails. Physical exam: General Appearance: Alert, cooperative, no distress, appears stated age. Skin: See HPI all other Skin color, texture, tugor normal, no rashes or lesions. Neurologic: Alert oriented x3 Assessment: 1. Atherosclerosis of [place] arteries of right leg with ulceration of 2. Pressure ulcer of left heel stage II 3. 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 Arthrosclerosis of [place] arteries of right leg with ulceration of other part of foot 5. Nonpressure chronic ulcer of other part of right foot with fat layer exposed Plan: 1. Apply Santyl, saline moistened gauze, dry gauze, rolled gauze and secure with paper tape. When using Santyl applied daily. Upon discharge change to honey alginate, saline moistened gauze, dry cough, rolled gauze and secure with paper tape. When using honey alginate apply Saturday. 2. Nextwound care appointment April 24 at 8:45. Thank you for the consultation any questions please contact the wound care center. DNP note has been reviewed and discussed with Dr. Jennings and the impression and plan of care has been directed as dictated. Past Medical History Past Medical History: Diabetes Mellitus, Hypertension Additional Past Medical History / Comment(s): Cardiomyopathy, DM TyII, Bronc hitis. chronic wound to back of left calf. Last Myocardial Infarction Date:: 2010 History of Any Multi-Drug Resistant Organisms: None Reported Past Surgical History: Pacemaker Additional Past Surgical History / Comment(s): CABG x3 2010?-year unsure. Past Anesthesia/Blood Transfusion Reactions: No Reported Reaction Type of Cardiac Device: AICD Device Placement Date:: 2020 Past Psychological History: No Psychological Hx Reported Smoking Status: Never smoker Past Alcohol Use History: None Reported Past Drug Use History: None Reported - Past Family History Father Family Medical History: No Reported History Mother Family Medical History: No Reported History Medications and Allergies Home Medications Medication Instructions Recorded Confirmed Type Aspirin EC [Ecotrin Low Dose] 81 mg PO DAILY 03/14/21 04/16/21 History Atorvastatin [Lipitor] 20 mg PO HS 03/14/21 04/16/21 History Bumetanide [BUMEX] 1 mg PO BID 03/14/21 04/16/21 History Clopidogrel [Plavix] 75 mg PO DAILY 03/14/21 04/16/21 History Collagenase [Santyl] 1 applic TOPICAL Q12H 03/14/21 04/16/21 History Donepezil [Aricept] 10 mg PO HS 03/14/21 04/16/21 History Isosorbide Mononitrate ER [Imdur] 30 mg PO DAILY 03/14/21 04/16/21 History Magnesium Oxide 400 mg PO DAILY 03/14/21 04/16/21 History Potassium Chloride ER [K-Dur 10] 10 meq PO DAILY 03/14/21 04/16/21 History glipiZIDE [Glucotrol] 5 mg PO DAILY 03/14/21 04/16/21 History HYDROcodone/APAP 5-325MG [[place] 1 tab PO Q4HR PRN #18 tab 03/20/21 04/16/21 Rx 5-325] Losartan [Cozaar] 50 mg PO DAILY tab 03/20/21 04/16/21 Rx Melatonin 3 mg PO HS PRN tablet 03/20/21 04/16/21 Rx Spironolactone [Aldactone] 25 mg PO DAILY tab 03/20/21 04/16/21 Rx ALPRAZolam [Xanax] 0.25 mg PO BID PRN 04/16/21 04/16/21 History Benzocaine/Menthol [Dermoplast 1 spray TOPICAL BID PRN 04/16/21 04/16/21 History Pain Relieving [place]] Ferrous Sulfate [Iron (65 MG 325 mg PO BID 04/16/21 04/16/21 History Elemental)] Nystatin 100,000 Unit/gm Powd 1 applic TOPICAL BID PRN 04/16/21 04/16/21 History [Mycostatin Powder] carvediloL [Coreg] 3.125 mg PO BID 04/16/21 04/16/21 History metFORMIN HCL [Glucophage] 500 mg PO BID 04/16/21 04/16/21 History Allergies Allergy/AdvReac Type Severity Reaction Status Date / Time Sulfa (Sulfonamide Allergy Anaphylaxis Verified 04/16/21 23:40 Antibiotics) Physical Exam Vitals: Vital Signs Temp Pulse Pulse Resp BP BP Pulse Ox 04/17/21 09:07 97.9 F 94 17 121/69 92 L 04/17/21 06:58 89 18 112/68 98 04/17/21 04:20 89 18 118/87 97 04/16/21 23:41 97.6 F 97 18 114/66 97 04/16/21 18:26 98.4 F 89 20 120/74 97 Intake and Output 04/16/21 04/17/21 04/17/21 22:59 06:59 14:59 Other: Weight 53.07 kg Results CBC & Chem 7: 04/16/21 23:11 04/16/21 23:11 Labs: Abnormal Lab Results - Last 24 Hours (Table) 04/16/21 Range/Units 23:11 Sodium 130 L (137-145) mmol/L Chloride 96 L (98-107) mmol/L BUN 62 H (7-17) mg/dL Alkaline Phosphatase 255 H (38-126) U/L Creatine Kinase <20 L (30-135) U/L Total Protein 8.4 H (6.3-8.2) g/dL Assessment and Plan (1) Atherosclerosis of [place] arteries of right leg with ulceration of calf Current Visit: Yes Status: Acute Code(s): I70.232 - ATHSCL ZUNI ARTERIES OF RIGHT LEG W ULCERATION OF CALF SNOMED Code(s): 023468294 (2) Atherosclerosis of [place] arteries of right leg with ulceration of other part of foot Current Visit: Yes Status: Acute Code(s): I70.235 - ATHSCL [place]UNI ARTERIES OF RIGHT LEG W ULCER OTH PRT FOOT SNOMED Code(s): 765177299 (3) Pressure ulcer of left heel, stage 2 Current Visit: Yes Status: Acute Code(s): L89.622 - PRESSURE ULCER OF LEFT HEEL, STAGE 2 SNOMED Code(s): 300135221 (4) Non-pressure chronic ulcer of right calf with necrosis of muscle Current Visit: Yes Status: Acute Code(s): L97.213 - NON-PRS CHRONIC ULCER OF RIGHT CALF W NECROSIS OF MUSCLE SNOMED Code(s): 63011930534273905 (5) Non-pressure chronic ulcer of other part of right foot with fat layer exposed Current Visit: Yes Status: Acute Code(s): L97.512 - NON-PRS CHRONIC ULCER OTH PRT RIGHT FOOT W FAT LAYER EXPOSED SNOMED Code(s): 895530761
--- NOTE | 2021-04-17 13:34 | P.HPIM ---
History of Present Illness Physical is an 81 years old female with past medical history of Diabetes Mellitus, Hypertension, Cardiomyopathy, chronic wound to back of left calf. Patient understood bedside stated that she has that insulin for about 2 months where she had bilateral leg swelling, dictated by wounds but in her left leg did not heal. Over the last 2 days he starts to become more painful, with some foul-smelling discharge so decided to come to emergency room Vitas looks stable and patient is afebrile Labs reviewed she has unremarkable CBC. BMP showing mild hyponatremia with sodium 1:30. Rest of BMP and liver enzymes are unremarkable. Creatinine kinase less than 20 None detected. She received normal saline and Zosyn in the emergency room Review of Systems CONSTITUTIONAL: No fever, no malaise, no fatigue. HEENT: No recent visual problems or hearing problems. Denied any sore throat. CARDIOVASCULAR: No orthopnea, PND, no palpitations, no syncope. PULMONARY: No shortness of breath, no cough, no hemoptysis. GASTROINTESTINAL: No diarrhea, no nausea, no vomiting, no abdominal pain. Normoactive bowel sounds. NEUROLOGICAL: No headaches, no weakness, no numbness. HEMATOLOGICAL: Denies any bleeding or petechiae. GENITOURINARY: Denies any burning micturition, frequency, or urgency. MUSCULOSKELETAL/RHEUMATOLOGICAL: Denies any joint pain, swelling, or any muscle pain. ENDOCRINE: Denies any polyuria or polydipsia. Past Medical History Past Medical History: Diabetes Mellitus, Hypertension Additional Past Medical History / Comment(s): Cardiomyopathy, DM TyII, Bronchitis. chronic wound to back of left calf. Last Myocardial Infarction Date:: 2010 History of Any Multi-Drug Resistant Organisms: None Reported Past Surgical History: Pacemaker Additional Past Surgical History / Comment(s): CABG x3 2010?-year unsure. Past Anesthesia/Blood Transfusion Reactions: No Reported Reaction Type of Cardiac Device: AICD Device Placement Date:: 2020 Past Psychological History: No Psychological Hx Reported Smoking Status: Never smoker Past Alcohol Use History: None Reported Past Drug Use History: None Reported - Past Family History Father Family Medical History: No Reported History Mother Family Medical History: No Reported History Medications and Allergies Home Medications Medication Instructions Recorded Confirmed Type Aspirin EC [Ecotrin Low Dose] 81 mg PO DAILY 03/14/21 04/16/21 History Atorvastatin [Lipitor] 20 mg PO HS 03/14/21 04/16/21 History Bumetanide [BUMEX] 1 mg PO BID 03/14/21 04/16/21 History Clopidogrel [Plavix] 75 mg PO DAILY 03/14/21 04/16/21 History Collagenase [Santyl] 1 applic TOPICAL Q12H 03/14/21 04/16/21 History Donepezil [Aricept] 10 mg PO HS 03/14/21 04/16/21 History Isosorbide Mononitrate ER [Imdur] 30 mg PO DAILY 03/14/21 04/16/21 History Magnesium Oxide 400 mg PO DAILY 03/14/21 04/16/21 History Potassium Chloride ER [K-Dur 10] 10 meq PO DAILY 03/14/21 04/16/21 History glipiZIDE [Glucotrol] 5 mg PO DAILY 03/14/21 04/16/21 History HYDROcodone/APAP 5-325MG [[place] 1 tab PO Q4HR PRN #18 tab 03/20/21 04/16/21 Rx 5-325] Losartan [Cozaar] 50 mg PO DAILY tab 03/20/21 04/16/21 Rx Melatonin 3 mg PO HS PRN tablet 03/20/21 04/16/21 Rx Spironolactone [Aldactone] 25 mg PO DAILY tab 03/20/21 04/16/21 Rx ALPRAZolam [Xanax] 0.25 mg PO BID PRN 04/16/21 04/16/21 History Benzocaine/Menthol [Dermoplast 1 spray TOPICAL BID PRN 04/16/21 04/16/21 History Pain Relieving [place]] Ferrous Sulfate [Iron (65 MG 325 mg PO BID 04/16/21 04/16/21 History Elemental)] Nystatin 100,000 Unit/gm Powd 1 applic TOPICAL BID PRN 04/16/21 04/16/21 History [Mycostatin Powder] carvediloL [Coreg] 3.125 mg PO BID 04/16/21 04/16/21 History metFORMIN HCL [Glucophage] 500 mg PO BID 04/16/21 04/16/21 History Allergies Allergy/AdvReac Type Severity Reaction Status Date / Time Sulfa (Sulfonamide Allergy Anaphylaxis Verified 04/16/21 23:40 Antibiotics) Physical Exam Vitals: Vital Signs Temp Pulse Pulse Resp BP BP Pulse Ox 04/17/21 09:07 97.9 F 94 17 121/69 92 L 04/17/21 06:58 89 18 112/68 98 04/17/21 04:20 89 18 118/87 97 04/16/21 23:41 97.6 F 97 18 114/66 97 04/16/21 18:26 98.4 F 89 20 120/74 97 Intake and Output 04/16/21 04/17/21 04/17/21 22:59 06:59 14:59 Other: Weight 53.07 kg GENERAL: The patient is alert and oriented x3, not in any acute distress. Well developed, well nourished. HEENT: Pupils are round and equally reacting to light. EOMI. No scleral icterus. No conjunctival pallor. Normocephalic, atraumatic. No pharyngeal erythema. No thyromegaly. CARDIOVASCULAR: S1 and S2 present. No murmurs, rubs, or gallops. PULMONARY: Chest is clear to auscultation, no wheezing or crackles. ABDOMEN: Soft, nontender, nondistended, normoactive bowel sounds. No palpable organomegaly. MUSCULOSKELETAL: No joint swelling or deformity. -EXTREMITIES: No cyanosis, clubbing, or pedal edema. Left leg wound behind the lower part of the leg about 3 inches in diameter with surrounding cellulitis with redness swelling and tenderness up to the mid left leg and above the ankle it also she has black eschar at the NEUROLOGICAL: Gross neurological examination did not reveal any focal deficits. SKIN: No rashes. No petechiae Results CBC & Chem 7: 04/16/21 23:11 04/16/21 23:11 Labs: Abnormal Lab Results - Last 24 Hours (Table) 04/16/21 Range/Units 23:11 Sodium 130 L (137-145) mmol/L Chloride 96 L (98-107) mmol/L BUN 62 H (7-17) mg/dL Alkaline Phosphatase 255 H (38-126) U/L Creatine Kinase <20 L (30-135) U/L Total Protein 8.4 H (6.3-8.2) g/dL Assessment and Plan Assessment: Infected left calf wound with surrounding cellulitis. Patient also has a black eschar wound on the left leg heal Diabetes mellitus Hypertension History of cardiomyopathy Plan: This is a pleasant 81 years old female who presents with infected left leg wound and cellulitis. Patient also has a black eschar wound on the left leg heal Patient is currently covered with Zosyn. Infectious disease team were consulted Follow-up wound culture Check Doppler of the left leg Labs and medication were reviewed.. Continue same treatment. Continue with symptomatic treatment. Resume home medication. Monitor lytes and vitals. DVT and GI prophylaxis. Further recommendations depends on the clinical course of the patient DVT prophylaxis: Subcutaneous heparin GI Prophylaxis: Pepcid
--- NOTE | 2021-04-17 14:36 | US ---
EXAMINATION TYPE: US venous doppler duplex LE LT DATE OF EXAM: 04/17/2021 2:11 PM COMPARISON: NONE CLINICAL HISTORY: wound. Left leg wound. SIDE PERFORMED: Left TECHNIQUE: The lower extremity deep venous system is examined utilizing real time linear array sonog henry with graded compression, doppler sonography and color-flow sonography. VESSELS IMAGED: Common Femoral Vein Deep Femoral Vein Greater Saphenous Vein * Femoral Vein Popliteal Vein Small Saphenous Vein * Proximal Calf Veins (* superficial vessels) Left Leg: Negative for DVT IMPRESSION: Grayscale, color doppler, spectral doppler imaging performed of the deep veins of the lo wer extremities. There is normal flow, compressibility, vascular waveforms.
[2021-04-17] MEDS: HYDROcodone/APAP 5-325MG 1 EACH TAB PO PRN ×2 (15:46→19:56)
[2021-04-17] MEDS: COLLAGENASE 250 UNIT/GM OINTMENT 30 GM TUBE TOPICAL SCH (16:20)
[2021-04-17 16:29] LABS: Glucose,Whole Blood 198 mg/dL (75-99)
[2021-04-17] MEDS: FAMOTIDINE 20 MG/2 ML VIAL IV SCH (19:57)
[2021-04-17] MEDS: ATORVASTATIN 20 MG TAB PO SCH (19:57)
[2021-04-17] MEDS: HEPARIN SODIUM,PORCINE/PF 5,000 UNIT/0.5 ML SYRINGE SQ SCH (19:57)
[2021-04-17] MEDS: DONEPEZIL 10 MG TAB PO SCH (20:47)
[2021-04-17] MEDS: MELATONIN 3 MG TABLET PO PRN (20:47)
[2021-04-18 07:41] LABS: Glucose,Whole Blood 131 mg/dL (75-99)
[2021-04-18] MEDS: LOSARTAN 50 MG TAB PO SCH (08:26)
[2021-04-18] MEDS: POTASSIUM CHLORIDE ER 10 MEQ TAB.ER.PRT PO SCH (08:26)
[2021-04-18] MEDS: SPIRONOLACTONE 25 MG TAB PO SCH (08:26)
[2021-04-18] MEDS: FAMOTIDINE 20 MG/2 ML VIAL IV SCH (08:26)
[2021-04-18] MEDS: HEPARIN SODIUM,PORCINE/PF 5,000 UNIT/0.5 ML SYRINGE SQ SCH ×2 (08:26→20:32)
[2021-04-18] MEDS: MAGNESIUM OXIDE 400 MG TAB PO SCH (08:26)
[2021-04-18] MEDS: CLOPIDOGREL 75 MG TAB PO SCH (08:26)
[2021-04-18] MEDS: COLLAGENASE 250 UNIT/GM OINTMENT 30 GM TUBE TOPICAL SCH (08:27)
[2021-04-18] MEDS: glipiZIDE 5 MG TAB PO SCH (08:27)
[2021-04-18] MEDS: BUMETANIDE 1 MG TAB PO SCH ×2 (08:27→20:32)
[2021-04-18] MEDS: ISOSORBIDE MONONITRATE ER 30 MG TAB.ER.24H PO SCH (08:27)
[2021-04-18] MEDS: carvediloL 6.25 MG TAB PO SCH ×2 (08:27→20:32)
[2021-04-18] MEDS: ASPIRIN 81 MG PO SCH (08:27)
[2021-04-18] MEDS: PIPERACILLIN-TAZOBACTAM 3.375 GM in SODIUM CHLORIDE 0.9% 100 ML IVPB SCH ×2 (08:29→16:55)
[2021-04-18 11:06] LABS: Albumin 3.6 g/dL (3.5-5.0); Calcium 9.2 mg/dL (8.4-10.2); Potassium 4.8 mmol/L (3.5-5.1); Total Bilirubin 0.9 mg/dL (0.2-1.3); Total Protein 7.3 g/dL (6.3-8.2)
[2021-04-18 12:52] VITALS: BMI 21.4
[2021-04-18 12:55] LABS: Glucose,Whole Blood 132 mg/dL (75-99)
[2021-04-18 17:18] LABS: Glucose,Whole Blood 185 mg/dL (75-99)
[2021-04-18] MEDS: ATORVASTATIN 20 MG TAB PO SCH (20:32)
[2021-04-18] MEDS: DONEPEZIL 10 MG TAB PO SCH (20:32)
[2021-04-18] MEDS: FAMOTIDINE 20 MG TAB PO SCH (20:32)
[2021-04-18] MEDS: HYDROcodone/APAP 5-325MG 1 EACH TAB PO PRN (20:52)
[2021-04-18] MEDS ORDERED: VANCOMYCIN IV PER PHARMACY 1 EACH MISC MISCELLANE PRN (22:40)
[2021-04-18] MEDS ORDERED: VANCOMYCIN 1,000 MG in SODIUM CHLORIDE 0.9% 250 ML IVPB ONE (23:00)
--- NOTE | 2021-04-18 23:12 | P.CONS ---
History of Present Illness - Reason for Consult Consult date: 04/18/21 left leg wound infection Requesting physician: Matthew Garcia Sheet - Chief Complaint worsening wound to the left leg x few days - History of Present Illness History of present illness : Patient is 81-year female with a past medical he significant for a wound to the right lower extremity in this patient with a previous history of surgical drainage of the right lower extremity at [facility] subsequently patient been following at [facility] for pain local wound care patient was noticed to have significant worsening of the wound with a foul-smelling drainage by the daughter and the patient was brought to the hospital 2 nights ago patient been complaining of pain to the dorsum and will be getting worse over the last few days described the pain to be sharp almost 10 or 10 in severity some relief with the pain medication patient did have some foul-smelling drainage on presentation to the hospital the patient was afebrile patient did have a normal white count creatinine was normal patient did have a venous Doppler was negative for DVT patient started on Zosyn was admitted to hospital infectious was consulted for further management of antibiotic therapy Review of system: CONSTITUTIONAL: Positive for weakness denies high-grade fever. EYES: No complaint. ENT: No complaint. RESPIRATORY: No complaint. CARDIOVASCULAR: No complaint. GENITOURINARY: No complaint. GASTROINTESTINAL: No complaint. MUSCULOSKELETAL: As per history of present illness. INTEGUMENTARY: As per history of present illness. PSYCHOLOGIC: No complaint. ENDOCRINE: No complaint. NEUROLOGIC: No complaint. Past medical history : Reviewed, documented below Past surgical history : Reviewed, documented below Social history: Reviewed, documented below Medications: Reviewed, as documented below EXAMINATION: Vital sigans= Reviewed and documented below GENERAL DESCRIPTION: Elderly female up in the chair, no distress. No tachypnea or accessory muscle of respiration use. HEENT: Shows Pallor , no scleral icterus. Oral mucous membrane is dry. NECK: Trachea central, no thyromegaly. LUNGS: Unlabored breathing. Clear to auscultation anteriorly. No wheeze or crackle. HEART: S1, S2, regular rate and rhythm. ABDOMEN: Soft, no tenderness , guarding or rigidity EXTREMITIES: Extensive wound to the left leg with a tendon exposed did have significant amount of slough tissue surrounding swelling redness wound was cleaned and deep cultures were obtained SKIN: No rash, no masses palpable. NEUROLOGICAL: The patient is awake, alert, oriented x3, mood and affect normal. LABS AND RADIOLOGY: Reviewed results see below Assessment : 1-patient with extensive wound to the left lower extremity with a tendon exposed and evidence of secondary surrounding cellulitis likely from gram-positive skin jose alejandro underlying chronic infection not excluded patient did have extensive wound and will benefit from surgical debridement and deep culture Plan: 1-discontinue Zosyn 2-we will start the patient on Unasyn and vancomycin combination 3-vascular surgery evaluation for debridement and deep cultures We will follow on clinical condition and cultures to further adjust medication if needed Thank you for this consultation we will follow the patient along with you Past Medical History Past Medical History: Coronary Artery Disease (CAD), Heart Failure, Diabetes Mellitus, Hypertension, Myocardial Infarction (CT), Pneumonia, Vascular Disorder Additional Past Medical History / Comment(s): Pt recently admitted to [facility] on 03/14/21 with CHF/L pleural effusion. Other hx: Chronic L calf wound/WCC, NIDM type II, neuropathy L foot/leg, cardiomyopathy/sees Dr Knight in [place], MIs, mild cognitive impairment, incontinence, iron anemia, hypmagnesemia Last Myocardial Infarction Date:: unsure History of Any Multi-Drug Resistant Organisms: None Reported Past Surgical History: AICD, Bladder Surgery, Coronary Bypass/CABG, Heart Catheterization, Heart Catheterization With Stent, Hysterectomy, Joint Replacement, Pacemaker Additional Past Surgical History / Comment(s): 10/2020 AICD/pacer, PCI stents, 2010 CABG 3 vessel, L leg wound I&D, bkadder suspension, ovarian cyst removal, D&C, rectocele, colonoscopy, total r knee arthroplasty. Past Anesthesia/Blood Transfusion Reactions: No Reported Reaction Date of Last Stent Placement:: unknown Type of Cardiac Device: AICD Device Placement Date:: 2020 Smoking Status: Never smoker - Past Family History Father Family Medical History: No Reported History Additional Family Medical History / Comment(s): Father had heart problems. He chewed tobacco, smoked and drank quit a bit of alcohol. Mother Family Medical History: Diabetes Mellitus Medications and Allergies Home Medications Medication Instructions Recorded Confirmed Type Aspirin EC [Ecotrin Low Dose] 81 mg PO DAILY 03/14/21 04/16/21 History Atorvastatin [Lipitor] 20 mg PO HS 03/14/21 04/16/21 History Bumetanide [BUMEX] 1 mg PO BID 03/14/21 04/16/21 History Clopidogrel [Plavix] 75 mg PO DAILY 03/14/21 04/16/21 History Collagenase [Santyl] 1 applic TOPICAL Q12H 03/14/21 04/16/21 History Donepezil [Aricept] 10 mg PO HS 03/14/21 04/16/21 History Isosorbide Mononitrate ER [Imdur] 30 mg PO DAILY 03/14/21 04/16/21 History Magnesium Oxide 400 mg PO DAILY 03/14/21 04/16/21 History Potassium Chloride ER [K-Dur 10] 10 meq PO DAILY 03/14/21 04/16/21 History glipiZIDE [Glucotrol] 5 mg PO DAILY 03/14/21 04/16/21 History HYDROcodone/APAP 5-325MG [[place] 1 tab PO Q4HR PRN #18 tab 03/20/21 04/16/21 Rx 5-325] Losartan [Cozaar] 50 mg PO DAILY tab 03/20/21 04/16/21 Rx Melatonin 3 mg PO HS PRN tablet 03/20/21 04/16/21 Rx Spironolactone [Aldactone] 25 mg PO DAILY tab 03/20/21 04/16/21 Rx ALPRAZolam [Xanax] 0.25 mg PO BID PRN 04/16/21 04/16/21 History Benzocaine/Menthol [Dermoplast 1 spray TOPICAL BID PRN 04/16/21 04/16/21 History Pain Relieving [place]] Ferrous Sulfate [Iron (65 MG 325 mg PO BID 04/16/21 04/16/21 History Elemental)] Nystatin 100,000 Unit/gm Powd 1 applic TOPICAL BID PRN 04/16/21 04/16/21 History [Mycostatin Powder] carvediloL [Coreg] 3.125 mg PO BID 04/16/21 04/16/21 History metFORMIN HCL [Glucophage] 500 mg PO BID 04/16/21 04/16/21 History Allergies Allergy/AdvReac Type Severity Reaction Status Date / Time Sulfa (Sulfonamide Allergy Anaphylaxis Verified 04/16/21 23:40 Antibiotics) Physical Exam Vitals: Vital Signs Temp Pulse Resp BP Pulse Ox 04/18/21 08:25 87 130/60 04/18/21 02:00 98 F 93 18 120/76 95 04/17/21 20:00 98 F 74 18 100/58 95 04/17/21 16:19 97.9 F 81 16 109/58 95 Intake and Output 04/17/21 04/18/21 04/18/21 22:59 06:59 14:59 Intake Total 600 Balance 600 Intake: Intake, IV Titration 600 Amount Sodium Chloride 0.9% 1, 600 000 ml @ 75 mls/hr IV . [id number] STA Rx#:[id number] Other: Voiding Method Toilet Toilet Weight 53.07 kg Results CBC & Chem 7: 04/16/21 23:11 04/18/21 10:32 Labs: Abnormal Lab Results - Last 24 Hours (Table) 04/17/21 04/18/21 04/18/21 Range/Units 16:22 07:40 10:32 Sodium 129 L (137-145) mmol/L Chloride 94 L (98-107) mmol/L BUN 38 H (7-17) mg/dL Glucose 239 H (74-99) mg/dL POC Glucose (mg/dL) 198 H 131 H (75-99) mg/dL Alkaline Phosphatase 186 H (38-126) U/L Microbiology - Last 24 Hours (Table) 04/16/21 23:00 Blood Culture - Preliminary Blood No Growth after 24 hours
[2021-04-19] MEDS: AMPICILLIN-SULBACTAM 3 GM in SODIUM CHLORIDE 0.9% 100 ML IVPB SCH ×5 (02:43→23:28)
[2021-04-19] MEDS: HYDROcodone/APAP 5-325MG 1 EACH TAB PO PRN ×3 (02:47→20:07)
[2021-04-19 05:14] LABS: Basophils # (A) 0.1 k/uL (0-0.2); Basophils % (A) 1 %; Eosinophils # (A) 0.2 k/uL (0-0.7); Eosinophils % (A) 3 %; HCT 35.1 % (34.0-46.0); HGB 11.8 gm/dL (11.4-16.0); Lymphocytes # (A) 1.9 k/uL (1.0-4.8); Lymphocytes % (A) 37 %; MCH 30.2 pg (25.0-35.0); MCHC 33.8 g/dL (31.0-37.0); MCV 89.3 fL (80.0-100.0); Mean Platelet Volume 7.1; Monocytes # (A) 0.4 k/uL (0-1.0); Monocytes % (A) 9 %; Neutrophils # (A) 2.4 k/uL (1.3-7.7); Neutrophils % (A) 48 %; Platelet Count 250 k/uL (150-450); RBC 3.93 m/uL (3.80-5.40); RDW 14.2 % (11.5-15.5)
[2021-04-19 05:29] LABS: Calcium 9.2 mg/dL (8.4-10.2); Potassium 4.3 mmol/L (3.5-5.1)
[2021-04-19] MEDS: ASPIRIN 81 MG PO SCH (09:08)
[2021-04-19] MEDS: BUMETANIDE 1 MG TAB PO SCH ×2 (09:09→20:06)
[2021-04-19] MEDS: MAGNESIUM OXIDE 400 MG TAB PO SCH (09:09)
[2021-04-19] MEDS: ISOSORBIDE MONONITRATE ER 30 MG TAB.ER.24H PO SCH (09:09)
[2021-04-19] MEDS: carvediloL 6.25 MG TAB PO SCH ×2 (09:10→20:06)
[2021-04-19] MEDS: POTASSIUM CHLORIDE ER 10 MEQ TAB.ER.PRT PO SCH (09:10)
[2021-04-19] MEDS: glipiZIDE 5 MG TAB PO SCH (09:10)
[2021-04-19] MEDS: LOSARTAN 50 MG TAB PO SCH (09:10)
[2021-04-19] MEDS: CLOPIDOGREL 75 MG TAB PO SCH (09:10)
[2021-04-19] MEDS: FAMOTIDINE 20 MG TAB PO SCH (09:10)
[2021-04-19] MEDS: SPIRONOLACTONE 25 MG TAB PO SCH (09:11)
[2021-04-19] MEDS: HEPARIN SODIUM,PORCINE/PF 5,000 UNIT/0.5 ML SYRINGE SQ SCH ×2 (09:11→20:06)
[2021-04-19] MEDS: COLLAGENASE 250 UNIT/GM OINTMENT 30 GM TUBE TOPICAL SCH (09:12)
--- NOTE | 2021-04-19 09:49 | P.PN ---
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 Patient understood bedside stated that she has that insulin for about 2 months where she had bilateral leg swelling, dictated by wounds but in her left leg did not heal. Over the last 2 days he starts to become more painful, with some foul-smelling discharge so decided to come to emergency room Vitas looks stable and patient is afebrile Labs reviewed she has unremarkable CBC. BMP showing mild hyponatremia with sodium 1:30. Rest of BMP and liver enzymes are unremarkable. Creatinine kinase less than 20 None detected. She received normal saline and Zosyn in the emergency room 04/01/2021 Patient is currently sitting in the chair. Left leg wound is wrapped. Still having purulent base. Patient has been afebrile. Pain is controlled fairly. On IV antibiotics and ID service is on board. Deep wound cultures were sent. Denied any chest pain or shortness of breath. No nausea vomiting or abdominal pain or diarrhea. Patient is currently on Unasyn and vancomycin. No headache or dizziness or lightheadedness. Discussed with her daughter at bedside. Current medications reviewed. Objective - Vital Signs Vital signs: Vital Signs Temp 98 F 04/18/21 02:00 Pulse 87 04/18/21 08:25 Resp 18 04/18/21 02:00 BP 130/60 04/18/21 08:25 Pulse Ox 95 04/18/21 02:00 Intake & Output 04/17/21 04/18/21 04/18/21 18:59 06:59 18:59 Intake Total 600 Balance 600 Weight 53.07 kg 53.07 kg Intake: Intake, IV Titration 600 Amount Sodium Chloride 0.9% 1, 600 000 ml @ 75 mls/hr IV . [id number] STA Rx#:[id number] Other: Voiding Method Toilet Toilet Toilet - Exam GENERAL: The patient is alert and oriented x3, not in any acute distress. Well developed, well nourished. HEENT: Pupils are round and equally reacting to light. EOMI. No scleral icterus. No conjunctival pallor. Normocephalic, atraumatic. No pharyngeal erythema. No thyromegaly. CARDIOVASCULAR: S1 and S2 present. No murmurs, rubs, or gallops. PULMONARY: Chest is clear to auscultation, no wheezing or crackles. ABDOMEN: Soft, nontender, nondistended, normoactive bowel sounds. No palpable organomegaly. MUSCULOSKELETAL: No joint swelling or deformity. -EXTREMITIES: No cyanosis, clubbing, or pedal edema. Left leg wound behind the lower part of the leg about 3 inches in diameter with surrounding cellulitis with redness swelling and tenderness up to the mid left leg and above the ankle it also she has black eschar at the NEUROLOGICAL: Gross neurological examination did not reveal any focal deficits. SKIN: No rashes. No petechiae - Labs CBC & Chem 7: 04/19/21 04:39 04/19/21 04:39 Labs: Abnormal Lab Results - Last 24 Hours (Table) 04/17/21 04/18/21 04/18/21 Range/Units 16:22 07:40 10:32 Sodium 129 L (137-145) mmol/L Chloride 94 L (98-107) mmol/L BUN 38 H (7-17) mg/dL Glucose 239 H (74-99) mg/dL POC Glucose (mg/dL) 198 H 131 H (75-99) mg/dL Alkaline Phosphatase 186 H (38-126) U/L 04/18/21 Range/Units 12:52 Sodium (137-145) mmol/L Chloride (98-107) mmol/L BUN (7-17) mg/dL Glucose (74-99) mg/dL POC Glucose (mg/dL) 132 H (75-99) mg/dL Alkaline Phosphatase (38-126) U/L Microbiology - Last 24 Hours (Table) 04/16/21 23:00 Blood Culture - Preliminary Blood No Growth after 24 hours Assessment and Plan Assessment: Infected extensive left calf wound with surrounding cellulitis. Patient also has a black eschar wound on the left leg heal Diabetes mellitus Hypertension History of cardiomyopathy Plan: This is a pleasant 81 years old female who presents with infected left leg wound and cellulitis. Patient also has a black eschar wound on the left leg heal Patient is currently covered with Zosyn. Infectious disease team is following Follow-up deep wound culture . Surgical consult for debridement. Check Doppler of the left leg Labs and medication were reviewed.. Continue with symptomatic treatment. Monitor lytes and vitals. DVT and GI prophylaxis. DVT prophylaxis: Subcutaneous heparin GI Prophylaxis: Pepcid
--- NOTE | 2021-04-19 15:07 | P.GSCN ---
History of Present Illness Consult date: 04/19/21 Reason for Consult: Debridement of left lower extremity, deep wound culture Requesting physician: Kate Oliver History of present illness: A 81-year-old female with a past medical history of diabetes mellitus, hyperte nsion, cardiomyopathy with chronic wound to the left lower extremity. Patient and daughters at bedside state that time the wound was noted by the daughters on February 25. The patient is unsure exactly when it had started. She has been seen in the wound care center one time. The patient was concerned because there was increase follow odor and increased pain especially with ambulation in the left lower extremity so she came to the emergency department for further evaluation. She denied any fevers or chills. On presentation no leukocytosis. Denies any history of tobacco use. The daughters state that they believe that she had arterial study previously done however no records in the chart. She did have a venous duplex of the left lower extremity which was negative for deep vein thrombosis. Patient states that she does have difficulty with walking mostly related to pain in the lower extremity. She has a wound is well on her heel. Prior to the wounds of the patient and daughter state that she was able to walk pretty well. Patient denies any shortness of breath, chest pain, abdom inal pain, fevers, chills, nausea or vomiting. Review of Systems A 14 point review of systems was completed all pertinent positives and negatives as stated in the HPI Past Medical History Past Medical History: Coronary Artery Disease (CAD), Heart Failure, Diabetes Mellitus, Hypertension, Myocardial Infarction ([place]), Pneumonia, Vascular Disorder Additional Past Medical History / Comment(s): Pt recently admitted to [facility] on 03/14/21 with CHF/L pleural effusion. Other hx: Chronic L calf wound/WCC, NIDM type II, neuropathy L foot/leg, cardiomyopathy/sees Dr Knight in [place], MIs, mild cognitive impairment, incontinence, iron anemia, hypmagnesemia Last Myocardial Infarction Date:: unsure History of Any Multi-Drug Resistant Organisms: None Reported Past Surgical History: AICD, Bladder Surgery, Coronary Bypass/CABG, Heart Cath eterization, Heart Catheterization With Stent, Hysterectomy, Joint Replacement, Pacemaker Additional Past Surgical History / Comment(s): 10/2020 AICD/pacer, PCI stents, 2010 CABG 3 vessel, L leg wound I&D, bkadder suspension, ovarian cyst removal, D&C, rectocele, colonoscopy, total r knee arthroplasty. Past Anesthesia/Blood Transfusion Reactions: No Reported Reaction Date of Last Stent Placement:: unknown Type of Cardiac Device: AICD Device Placement Date:: 2020 Smoking Status: Never smoker - Past Family History Father Family Medical History: No Reported History Additional Family Medical History / Comment(s): Father had heart problems. He chewed tobacco, smoked and drank quit a bit of alcohol. Mother Family Medical History: Diabetes Mellitus Medications and Allergies Home Medications Medication Instructions Recorded Confirmed Type Aspirin EC [Ecotrin Low Dose] 81 mg PO DAILY 03/14/21 04/16/21 History Atorvastatin [Lipitor] 20 mg PO HS 03/14/21 04/16/21 History Bumetanide [BUMEX] 1 mg PO BID 03/14/21 04/16/21 History Clopidogrel [Plavix] 75 mg PO DAILY 03/14/21 04/16/21 History Collagenase [Santyl] 1 applic TOPICAL Q12H 03/14/21 04/16/21 History Donepezil [Aricept] 10 mg PO HS 03/14/21 04/16/21 History Isosorbide Mononitrate ER [Imdur] 30 mg PO DAILY 03/14/21 04/16/21 History Magnesium Oxide 400 mg PO DAILY 03/14/21 04/16/21 History Potassium Chloride ER [K-Dur 10] 10 meq PO DAILY 03/14/21 04/16/21 History glipiZIDE [Glucotrol] 5 mg PO DAILY 03/14/21 04/16/21 History HYDROcodone/APAP 5-325MG [Fence 1 tab PO Q4HR PRN #18 tab 03/20/21 04/16/21 Rx 5-325] Losartan [Cozaar] 50 mg PO DAILY tab 03/20/21 04/16/21 Rx Melatonin 3 mg PO HS PRN tablet 03/20/21 04/16/21 Rx Spironolactone [Aldactone] 25 mg PO DAILY tab 03/20/21 04/16/21 Rx ALPRAZolam [Xanax] 0.25 mg PO BID PRN 04/16/21 04/16/21 History Benzocaine/Menthol [Dermoplast 1 spray TOPICAL BID PRN 04/16/21 04/16/21 History Pain Relieving [place]] Ferrous Sulfate [Iron (65 MG 325 mg PO BID 04/16/21 04/16/21 History Elemental)] Nystatin 100,000 Unit/gm Powd 1 applic TOPICAL BID PRN 04/16/21 04/16/21 History [Mycostatin Powder] carvediloL [Coreg] 3.125 mg PO BID 04/16/21 04/16/21 History metFORMIN HCL [Glucophage] 500 mg PO BID 04/16/21 04/16/21 History Allergies Allergy/AdvReac Type Severity Reaction Status Date / Time Sulfa (Sulfonamide Allergy Anaphylaxis Verified 04/16/21 23:40 Antibiotics) Surgical - Exam Vital Signs Temp Pulse Resp BP Pulse Ox 98.4 F 89 20 120/74 97 04/16/21 18:26 04/16/21 18:26 04/16/21 18:26 04/16/21 18:26 04/16/21 18:26 General appearance: The patient is alert, oriented, appears in no acute distress. HET: Head is normocephalic and atraumatic. Neck: Supple without lymphadenopathy. Trachea midline. Heart: S1 S2. Regular rate and rhythm. Lungs: Clear to auscultation. Abdomen: Soft, nontender, nondistended. Extremities: Left lower extremity swelling, redness. Left lower extremity with Ulcer to the lateral side of the great toe, pressure ulcer to the left heel as well as ulcer with exposure of tendon and muscle on the posterior aspect of left calf. Neurological: No focal deficits. Strength and sensation are grossly intact. Results - Labs 04/19/21 04:39 04/19/21 04:39 Abnormal Lab Results - Last 24 Hours (Table) 04/18/21 04/18/21 04/18/21 Range/Units 10:32 12:52 17:16 Sodium 129 L (137-145) mmol/L Chloride 94 L (98-107) mmol/L BUN 38 H (7-17) mg/dL Creatinine (0.52-1.04) mg/dL Glucose 239 H (74-99) mg/dL POC Glucose (mg/dL) 132 H 185 H (75-99) mg/dL Alkaline Phosphatase 186 H (38-126) U/L 04/19/21 Range/Units 04:39 Sodium 131 L (137-145) mmol/L Chloride (98-107) mmol/L BUN 40 H (7-17) mg/dL Creatinine 1.06 H (0.52-1.04) mg/dL Glucose 105 H (74-99) mg/dL POC Glucose (mg/dL) (75-99) mg/dL Alkaline Phosphatase (38-126) U/L Microbiology - Last 24 Hours (Table) 04/16/21 23:00 Blood Culture - Preliminary Blood No Growth after 48 hours 04/17/21 12:45 Wound Culture - Preliminary Leg - Left Diabetes panel 04/18/21 04/19/21 Range/Units 10:32 04:39 Sodium 129 L 131 L (137-145) mmol/L Potassium 4.8 4.3 (3.5-5.1) mmol/L Chloride 94 L 98 (98-107) mmol/L Carbon Dioxide 24 23 (22-30) mmol/L BUN 38 H 40 H (7-17) mg/dL Creatinine 0.93 1.06 H (0.52-1.04) mg/dL Glucose 239 H 105 H (74-99) mg/dL Calcium 9.2 9.2 (8.4-10.2) mg/dL AST 19 (14-36) U/L ALT 14 (4-34) U/L Alkaline Phosphatase 186 H (38-126) U/L Total Protein 7.3 (6.3-8.2) g/dL Albumin 3.6 (3.5-5.0) g/dL Calcium panel 04/18/21 04/19/21 Range/Units 10:32 04:39 Calcium 9.2 9.2 (8.4-10.2) mg/dL Albumin 3.6 (3.5-5.0) g/dL Pituitary panel 04/18/21 04/19/21 Range/Units 10:32 04:39 Sodium 129 L 131 L (137-145) mmol/L Potassium 4.8 4.3 (3.5-5.1) mmol/L Chloride 94 L 98 (98-107) mmol/L Carbon Dioxide 24 23 (22-30) mmol/L BUN 38 H 40 H (7-17) mg/dL Creatinine 0.93 1.06 H (0.52-1.04) mg/dL Glucose 239 H 105 H (74-99) mg/dL Calcium 9.2 9.2 (8.4-10.2) mg/dL Adrenal panel 04/18/21 04/19/21 Range/Units 10:32 04:39 Sodium 129 L 131 L (137-145) mmol/L Potassium 4.8 4.3 (3.5-5.1) mmol/L Chloride 94 L 98 (98-107) mmol/L Carbon Dioxide 24 23 (22-30) mmol/L BUN 38 H 40 H (7-17) mg/dL Creatinine 0.93 1.06 H (0.52-1.04) mg/dL Glucose 239 H 105 H (74-99) mg/dL Calcium 9.2 9.2 (8.4-10.2) mg/dL Total Bilirubin 0.9 (0.2-1.3) mg/dL AST 19 (14-36) U/L ALT 14 (4-34) U/L Alkaline Phosphatase 186 H (38-126) U/L Total Protein 7.3 (6.3-8.2) g/dL Albumin 3.6 (3.5-5.0) g/dL - Imaging Comments: Left lower extremity venous duplex negative for DVT Assessment and Plan Assessment: 1. 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 Pressure ulcer to left heel 3. Diabetes mellitus 4. History of cardiomyopathy 5. History of coronary artery disease on Plavix Plan: 1. Nothing by mouth after midnight 2. Hold Plavix in the morning 3. Hold anticoagulation morning of surgery 4. Continue antibiotics per recommendations from infectious disease 5. Plan for left lower extremity wound debridement in the operating room with deep tissue cultures and possible wound VAC application Thank you for this consultation allowing us take part in the plan of care your patient during her hospital stay. The impression and plan of care has been dictated as directed. Dr. Gregorio I performed a history and examination of this patient, discussed the same with the dictator. I agree with the dictator's note ,documented as a scribe. Any additional findings or plans will be noted.
--- NOTE | 2021-04-19 16:24 | PN ---
PROGRESS NOTE DATE OF SERVICE: 04/19/2021 REASON FOR FOLLOWUP: Left leg wound infection. INTERVAL HISTORY: The patient is afebrile. The patient is currently breathing comfortably. No chest pain, shortness of breath or cough. Still complains of pain to the left leg, but no worsening, and no diarrhea. PHYSICAL EXAMINATION: Blood pressure 109/61 with pulse of 73, temperature 98. She is 99% on room air. General description is an elderly female up in the chair in no distress. Respiratory system: Unlabored breathing, clear to auscultation anteriorly. Heart S1, S2. Regular rate and rhythm. Abdomen soft, no tenderness. Left leg is currently dressed. No obvious drainage on the dressing. LABS: Hemoglobin is 11.8, white count 5.0, creatinine 1.06. Cultures are currently pending. DIAGNOSTIC IMPRESSION AND PLAN: Patient with left leg wound with secondary cellulitis. Vascular Surgery has seen the patient. Awaiting debridement and deep cultures. Patient is covered with Unasyn and vancomycin; to continue. Need to watch her kidney function closely. Continue supportive care. MMODL / IJN: [id number] /
[2021-04-19] MEDS: DONEPEZIL 10 MG TAB PO SCH (20:06)
[2021-04-19] MEDS: ATORVASTATIN 20 MG TAB PO SCH (20:06)
[2021-04-19] MEDS: VANCOMYCIN 1,000 MG in SODIUM CHLORIDE 0.9% 250 ML IVPB SCH (20:34)
--- NOTE | 2021-04-19 22:41 | P.PN ---
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 Patient understood bedside stated that she has that insulin for about 2 months where she had bilateral leg swelling, dictated by wounds but in her left leg did not heal. Over the last 2 days he starts to become more painful, with some foul-smelling discharge so decided to come to emergency room Vitas looks stable and patient is afebrile Labs reviewed she has unremarkable CBC. BMP showing mild hyponatremia with sodium 1:30. Rest of BMP and liver enzymes are unremarkable. Creatinine kinase less than 20 None detected. She received normal saline and Zosyn in the emergency room 04/18/2021 Patient is currently sitting in the chair. Left leg wound is wrapped. Still having purulent base. Patient has been afebrile. Pain is controlled fairly. On IV antibiotics and ID service is on board. Deep wound cultures were sent. Denied any chest pain or shortness of breath. No nausea vomiting or abdominal pain or diarrhea. Patient is currently on Unasyn and vancomycin. No headache or dizziness or lightheadedness. Discussed with her daughter at bedside. 04/19/2021 Patient is currently sitting in the chair. Complains of pain at the wound site on the left lower extremity. Vascular surgery has seen the patient and is planning for debridement tomorrow. Anticoagulation and Plavix is on hold. Patient is being current on antibiotics in the form of Unasyn and vancomycin. ID and vascular surgery is on board. Patient has been afebrile. No leukocytosis currently. Current on pain management. No chest pain or shortness breath. Current medications reviewed. Objective - Vital Signs Vital signs: Vital Signs Temp 97.6 F 04/19/21 19:14 Pulse 94 04/19/21 19:14 Resp 16 04/19/21 12:56 BP 129/70 04/19/21 19:14 Pulse Ox 97 04/19/21 19:14 Intake & Output 04/19/21 04/19/21 04/20/21 06:59 18:59 06:59 Intake Total 636 Balance 636 Intake: Intake, IV Titration 200 Amount Ampicillin-Sulbactam 3 gm 200 In Sodium Chloride 0.9% 100 ml @ 200 mls/hr IVPB Q6HR [facility] Rx#:[id number] Oral 436 Other: # Voids 2 4 - Exam GENERAL: The patient is alert and oriented x3, not in any acute distress. Well developed, well nourished. HEENT: Pupils are round and equally reacting to light. EOMI. No scleral icterus. No conjunctival pallor. Normocephalic, atraumatic. No pharyngeal erythema. No thyromegaly. CARDIOVASCULAR: S1 and S2 present. No murmurs, rubs, or gallops. PULMONARY: Chest is clear to auscultation, no wheezing or crackles. ABDOMEN: Soft, nontender, nondistended, normoactive bowel sounds. No palpable organomegaly. MUSCULOSKELETAL: No joint swelling or deformity. -EXTREMITIES: No cyanosis, clubbing, or pedal edema. Left leg wound behind the lower part of the leg about 3 inches in diameter with surrounding cellulitis with redness swelling and tenderness up to the mid left leg and above the ankle it also she has black eschar at the NEUROLOGICAL: Gross neurological examination did not reveal any focal deficits. SKIN: No rashes. No petechiae - Labs CBC & Chem 7: 04/19/21 04:39 04/19/21 04:39 Labs: Abnormal Lab Results - Last 24 Hours (Table) 04/19/21 Range/Units 04:39 Sodium 131 L (137-145) mmol/L BUN 40 H (7-17) mg/dL Creatinine 1.06 H (0.52-1.04) mg/dL Glucose 105 H (74-99) mg/dL Microbiology - Last 24 Hours (Table) 04/17/21 12:45 Gram Stain - Preliminary Leg - Left Wound Culture - Preliminary Presumptive MRSA Gram Neg Bacilli 04/16/21 23:00 Blood Culture - Preliminary Blood No Growth after 48 hours Assessment and Plan Assessment: Infected extensive left calf wound with surrounding cellulitis. Patient also has a black eschar wound on the left leg heal Diabetes mellitus Hypertension History of cardiomyopathy Plan: This is a pleasant 81 years old female who presents with infected left leg wound and cellulitis. Patient also has a black eschar wound on the left leg heal Patient is currently covered with Zosyn. Infectious disease team is following Follow-up deep wound culture . Surgical consult for debridement. Vascular surgery is following for debridement to tomorrow. Labs and medication were reviewed.. Continue with symptomatic treatment. Monitor lytes and vitals. DVT and GI prophylaxis. DVT prophylaxis: Subcutaneous heparin GI Prophylaxis: Pepcid
[2021-04-19] MEDS: MELATONIN 3 MG TABLET PO PRN (23:27)
[2021-04-20] MEDS: HYDROcodone/APAP 5-325MG 1 EACH TAB PO PRN (02:48)
[2021-04-20] MEDS: AMPICILLIN-SULBACTAM 3 GM in SODIUM CHLORIDE 0.9% 100 ML IVPB SCH ×3 (05:03→18:29)
[2021-04-20] MEDS: CLOPIDOGREL 75 MG TAB PO SCH (06:43)
[2021-04-20] MEDS: ASPIRIN 81 MG PO SCH (06:43)
[2021-04-20] MEDS: HEPARIN SODIUM,PORCINE/PF 5,000 UNIT/0.5 ML SYRINGE SQ SCH ×2 (06:44→20:55)
[2021-04-20] MEDS: BUMETANIDE 1 MG TAB PO SCH ×2 (10:32→20:55)
[2021-04-20] MEDS: SPIRONOLACTONE 25 MG TAB PO SCH (10:32)
[2021-04-20] MEDS: LOSARTAN 50 MG TAB PO SCH (10:32)
[2021-04-20] MEDS: ISOSORBIDE MONONITRATE ER 30 MG TAB.ER.24H PO SCH (10:32)
[2021-04-20] MEDS: carvediloL 6.25 MG TAB PO SCH ×2 (10:32→20:55)
[2021-04-20 11:58] LABS: Glucose,Whole Blood 98 mg/dL (75-99)
[2021-04-20] MEDS: COLLAGENASE 250 UNIT/GM OINTMENT 30 GM TUBE TOPICAL SCH (12:30)
[2021-04-20] MEDS: glipiZIDE 5 MG TAB PO SCH (12:30)
[2021-04-20] MEDS: SODIUM CHLORIDE 0.9% 1,000 ML IV SCH ×2 (12:42→18:22)
--- NOTE | 2021-04-20 13:57 | P.PN ---
Subjective Progress Note Date: 04/20/21 Patient was seen and examined sitting up at the bedside chair. She scheduled this afternoon for a left lower extremity debridement with deep tissue culture. No acute changes through the night. Patient's been afebrile. ABIs completed right lower extremity 0.79, left lower extremity 0.75. Objective - Vital Signs Vital signs: Vital Signs Temp 97.4 F L 04/20/21 02:18 Pulse 84 04/20/21 02:18 Resp 16 04/19/21 12:56 BP 100/56 04/20/21 02:18 Pulse Ox 97 04/20/21 02:18 Intake & Output 04/19/21 04/20/21 04/20/21 18:59 06:59 18:59 Intake Total 636 Balance 636 Intake: Intake, IV Titration 200 Amount Ampicillin-Sulbactam 3 gm 200 In Sodium Chloride 0.9% 100 ml @ 200 mls/hr IVPB Q6HR [facility] Rx#:[id number] Oral 436 Other: Voiding Method Diaper # Voids 4 4 # Bowel Movements 0 - Exam General appearance: The patient is alert, oriented, in no acute distress. HET: Head is normocephalic and atraumati Neck: Supple without lymphadenopathy. Trachea midline. Extremities: Bilateral lower extremity edema. Left lower extremity with dressing clean dry and intact. Warm to the touch with good capillary refill. Neurological: No focal deficits. Strength and sensation are grossly intact. - Labs CBC & Chem 7: 04/19/21 04:39 04/19/21 04:39 Labs: Microbiology - Last 24 Hours (Table) 04/16/21 23:00 Blood Culture - Preliminary Blood No Growth after 72 hours 04/17/21 12:45 Gram Stain - Preliminary Leg - Left Wound Culture - Preliminary Presumptive MRSA Gram Neg Bacilli Assessment and Plan Assessment: 1. 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 Pressure ulcer to left heel 3. Diabetes mellitus 4. History of cardiomyopathy 5. History of coronary artery disease on Plavix Plan: 1. Nothing by mouth 2. Hold Plavix today 3. Hold anticoagulation this morning 4. Continue antibiotics per recommendations from infectious disease 5. Plan for left lower extremity wound debridement in the operating room with deep tissue cultures and possible wound VAC application Thank you for this consultation allowing us take part in the plan of care your patient during her hospital stay. The impression and plan of care has been dictated as directed. Dr. Solomon I performed a history and examination of this patient, discussed the same with the dictator. I agree with the dictator's note ,documented as a scribe. Any additional findings or plans will be noted.
[2021-04-20] MEDS ORDERED: LACTATED RINGERS 1,000 ML IV ONE (14:43)
[2021-04-20] MEDS ORDERED: MIDAZOLAM 2 MG/2 ML VIAL ONE (15:32)
[2021-04-20] MEDS ORDERED: PROPOFOL 10 MG/ML 20 ML VIAL IV ONE (15:32)
[2021-04-20] MEDS ORDERED: .fentaNYL (PF) 50 MCG/ML 2 ML AMP ONE (15:32)
--- NOTE | 2021-04-20 16:27 | P.OP ---
Date of Procedure: 04/20/21 Description of Procedure: Preoperative diagnosis: Left lower extremity wounds Postoperative diagnosis: Same Procedure: [Sharp excisional debridement of left leg wounds #1 calf 10 x 8.7 x 0.4 to tendon and muscle #2 heel 3.7 x 1.7 x 0.2 to subcutaneous tissue #3 great toe 0.6 x 0.4 x 0.1 to subcutaneous tissue Application of wound VAC] Surgeon: Camelia Gregorio D.O. EBL: [5 mL] IV fluids: [See records] Urine output: [Not measured] Drains: [Wound VAC] Complications: [None] Condition: [None immediately apparent] Operative indication and findings: [The patient is a 81-year-old female who recently had significant swelling and subsequently developed wounds. They have been worsening over time and are pressure ulcerations on the posterior calf heel and at the area of the great toe at the base of the nail. She was recommended undergo operative debridement. Risks and benefits were explained. She seem ingly understood and was willing to proceed as such] Procedure in detail: [Patient was taken to the operating suite and placed in lateral decubitus position. The left lower extremity was prepped and draped in usual sterile fashion. A preprocedure timeout was performed, all parties are in agreement. Starting at the great toe using a curet, the slough and fibrinous tissue was debrided. There was no evidence of tunneling or purulent drainage. Measurements are as above. Attention was then turned towards the heel and the flaky skin. A scalpel was utilized to excise the overlying eschar followed by a curet in the subcutaneous fatty tissues. There was no purulent drainage from this area. Attention was then turned towards the posterior calf. It was sharply debrided using a curet with some slough and fibrinous type tissues. Just lateral to the tendon there was some murky appearing drainage however did not tunnel track anywhere. It was cultured. Aggressive curetting was performed to healthy appearing granulation tissue. The areas were then copiously irrigated. The black sponge was cut to size and placed in the posterior calf. It was applied to the back and was found to have a good seal. A wound dressing was placed on the heel and toe. The patient was transferred to cover in stable condition having tolerated the procedure well. ]
[2021-04-20] MEDS: HYDROmorphone 0.5 MG/0.5 ML SYRINGE IVP ONE ×2 (16:32→16:56)
[2021-04-20] MEDS: POTASSIUM CHLORIDE ER 10 MEQ TAB.ER.PRT PO SCH (18:21)
[2021-04-20] MEDS: MAGNESIUM OXIDE 400 MG TAB PO SCH (18:21)
[2021-04-20] MEDS: FAMOTIDINE 20 MG TAB PO SCH (18:21)
[2021-04-20] MEDS: VANCOMYCIN 1,000 MG in SODIUM CHLORIDE 0.9% 250 ML IVPB SCH (20:54)
[2021-04-20] MEDS: ATORVASTATIN 20 MG TAB PO SCH (20:55)
[2021-04-20] MEDS: DONEPEZIL 10 MG TAB PO SCH (20:55)
[2021-04-20 21:11] LABS: Glucose,Whole Blood 94 mg/dL (75-99)
--- NOTE | 2021-04-20 22:18 | PN ---
PROGRESS NOTE DATE OF SERVICE: 04/20/2021. REASON FOR FOLLOWUP: Left leg wound and cellulitis. INTERVAL HISTORY: The patient is afebrile. The patient is status post debridement of the wound to the left leg this afternoon. The patient tolerated the procedure. Pain is currently controlled. The patient denies any chest pain, shortness of breath or cough. No abdominal pain or diarrhea. PHYSICAL EXAMINATION: Blood pressure 119/67, pulse 74, temperature 98. She is 98% on room air. General description is an elderly female up in the chair in no distress. Respiratory system: Unlabored breathing. Clear to auscultation anteriorly. Heart S1, S2. Regular rate and rhythm. Abdomen soft, no tenderness. Left leg is currently dressed. No obvious drainage on the dressing. LABS: Hemoglobin is 11.8, white count 5.8, creatinine 1.06. Wound culture with Gram-negative and MRSA. DIAGNOSTIC IMPRESSION AND PLAN: Patient with left leg wound with secondary cellulitis, culture with MRSA and Gram- negative. Patient is covered with Unasyn and vancomycin; to continue while waiting for the final cultures. Patient will benefit from outpatient antibiotic therapy in view of extensive infection. Continue supportive care. MMODL / IJN: [id number] /
[2021-04-21] MEDS: AMPICILLIN-SULBACTAM 3 GM in SODIUM CHLORIDE 0.9% 100 ML IVPB SCH ×5 (01:21→23:47)
[2021-04-21] MEDS: SODIUM CHLORIDE 0.9% 1,000 ML IV SCH ×3 (05:55→23:48)
[2021-04-21 07:35] LABS: Glucose,Whole Blood 78 mg/dL (75-99)
[2021-04-21] MEDS: HEPARIN SODIUM,PORCINE/PF 5,000 UNIT/0.5 ML SYRINGE SQ SCH ×2 (08:12→20:46)
[2021-04-21] MEDS: ISOSORBIDE MONONITRATE ER 30 MG TAB.ER.24H PO SCH (08:12)
[2021-04-21] MEDS: ASPIRIN 81 MG PO SCH (08:12)
[2021-04-21] MEDS: MAGNESIUM OXIDE 400 MG TAB PO SCH (08:12)
[2021-04-21] MEDS: INSULIN ASPART (NovoLOG) 100 UNIT/ML VIAL SQ SCH ×4 (08:12→20:52)
[2021-04-21] MEDS: carvediloL 6.25 MG TAB PO SCH ×2 (08:13→20:46)
[2021-04-21] MEDS: POTASSIUM CHLORIDE ER 10 MEQ TAB.ER.PRT PO SCH (08:13)
[2021-04-21] MEDS: SPIRONOLACTONE 25 MG TAB PO SCH (08:13)
[2021-04-21] MEDS: CLOPIDOGREL 75 MG TAB PO SCH (08:13)
[2021-04-21] MEDS: FAMOTIDINE 20 MG TAB PO SCH (08:13)
[2021-04-21] MEDS: LOSARTAN 50 MG TAB PO SCH (08:13)
[2021-04-21] MEDS: glipiZIDE 5 MG TAB PO SCH (08:14)
[2021-04-21] MEDS: COLLAGENASE 250 UNIT/GM OINTMENT 30 GM TUBE TOPICAL SCH (08:15)
[2021-04-21] MEDS: BUMETANIDE 1 MG TAB PO SCH ×2 (08:15→20:46)
[2021-04-21 11:00] LABS: Basophils % (A) 1 %; Eosinophils # (A) 0.1 k/uL (0-0.7); Eosinophils % (A) 1 %; HCT 36.2 % (34.0-46.0); HGB 11.8 gm/dL (11.4-16.0); Lymphocytes # (A) 1.2 k/uL (1.0-4.8); Lymphocytes % (A) 18 %; MCH 30.1 pg (25.0-35.0); MCHC 32.6 g/dL (31.0-37.0); MCV 92.1 fL (80.0-100.0); Mean Platelet Volume 7.3; Monocytes # (A) 0.4 k/uL (0-1.0); Monocytes % (A) 6 %; Neutrophils # (A) 4.9 k/uL (1.3-7.7); Neutrophils % (A) 74 %; Platelet Count 258 k/uL (150-450); RBC 3.93 m/uL (3.80-5.40); RDW 14.7 % (11.5-15.5); WBC 6.7 k/uL (3.8-10.6)
[2021-04-21 11:13] LABS: C Reactive Protein 2.5 mg/dL (<1.0); Calcium 8.9 mg/dL (8.4-10.2); Potassium 4.7 mmol/L (3.5-5.1)
[2021-04-21 12:21] LABS: Glucose,Whole Blood 191 mg/dL (75-99)
--- NOTE | 2021-04-21 12:40 | P.PN ---
Subjective Progress Note Date: 04/21/21 She was seen and examined sitting up in the bedside chair. She is pleasantly confused. She is alert and oriented 2. She is postop day #1 for debridement of the left lower extremity. She has a wound VAC intact with good suction. She denies any fevers or chills. Objective - Vital Signs Vital signs: Vital Signs Temp 97.5 F L 04/21/21 08:24 Pulse 80 04/21/21 08:24 Resp 14 04/21/21 08:24 BP 117/69 04/21/21 08:24 Pulse Ox 95 04/21/21 08:24 Intake & Output 04/20/21 04/21/21 04/21/21 18:59 06:59 18:59 Intake Total 600 220 Output Total 5 400 Balance 595 -180 Weight 53.07 kg Intake: IV 600 Oral 220 Output: Urine 400 Estimated Blood Loss 5 Other: Voiding Method Diaper Bedside Commode # Voids 3 2 # Bowel Movements 1 - Exam General appearance: The patient is alert, oriented, in no acute distress. HET: Head is normocephalic and atraumati Neck: Supple without lymphadenopathy. Trachea midline. Extremities: Left lower extremity with wound vac on calf wound. Pressure ulcer on heel without drainage. Foot warm to touch. Neurological: No focal deficits. Strength and sensation are grossly intact. - Labs CBC & Chem 7: 04/21/21 09:52 04/21/21 09:52 Labs: Microbiology - Last 24 Hours (Table) 04/16/21 23:00 Blood Culture - Preliminary Blood No Growth after 96 hours 04/20/21 12:00 Anaerobic Culture - Preliminary Leg - Left 04/20/21 12:00 Wound Culture - Preliminary Leg - Left 04/17/21 12:45 Gram Stain - Preliminary Leg - Left Wound Culture - Preliminary Methicillin resist S. aureus Gram Neg Bacilli Assessment and Plan Assessment: 1. Post op day #1 debridement of left lower extremity 2. 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 Pressure ulcer to left heel 3. Diabetes mellitus 4. History of cardiomyopathy 5. History of coronary artery disease on Plavix Plan: 1. Diet as tolerated 2. Continue with wound VAC dressing at current setting change every 3 days 3. Wound care per orders, patient to follow up out patient with wound clinic 4. Antibiotics per recommendations of infectious disease 5. Patient is cleared by vascular surgery for discharge. The impression and plan of care has been dictated as directed. Dr. Gregorio I performed a history and examination of this patient, discussed the same with the dictator. I agree with the dictator's note ,documented as a scribe. Any additional findings or plans will be noted.
[2021-04-21 13:03] LABS: Erythrocyte Sedimentation Rate 44 mm/hr (0-20)
[2021-04-21] MEDS: HYDROcodone/APAP 5-325MG 1 EACH TAB PO PRN ×2 (13:30→17:13)
--- NOTE | 2021-04-21 15:25 | PN ---
PROGRESS NOTE DATE OF SERVICE: 04/21/2021 REASON FOR FOLLOWUP: Left leg wound infection and cellulitis. INTERVAL HISTORY: The patient is afebrile. The patient's pain to the left foot is currently controlled. The patient denies having any chest pain, shortness of breath or cough. No nausea, no vomiting. No abdominal pain, no diarrhea. PHYSICAL EXAMINATION: Blood pressure 117/69 with a pulse of 80, temperature 97.5. She is 95% on room air. General description is an elderly female up in the chair in no distress. Respiratory system: Unlabored breathing, clear to auscultation anteriorly. Heart S1, S2. Regular rate and rhythm. Abdomen soft, no tenderness. Left leg is currently dressed, covered with a wound V.A.C. LABS: Sedimentation rate of 44. CRP is 2.5. Creatinine is 1.16. White count normal. OR cultures are currently pending. DIAGNOSTIC IMPRESSION AND PLAN: Patient with extensive left leg wound with secondary cellulitis. Culture with Gram- negative and MRSA. Patient is covered with Unasyn and vancomycin. She will need a PICC line for outpatient IV antibiotic therapy. Discharge antibiotic on the basis of cultures. Continue with supportive care. MMODL / IJN: [id number] /
[2021-04-21 17:05] LABS: Glucose,Whole Blood 150 mg/dL (75-99)
[2021-04-21] MEDS ORDERED: VANCOMYCIN TROUGH DUE 1 EACH MISC MISCELLANE ONE (19:00)
[2021-04-21] MEDS: DONEPEZIL 10 MG TAB PO SCH (20:15)
[2021-04-21] MEDS: ATORVASTATIN 20 MG TAB PO SCH (20:15)
[2021-04-21] MEDS: VANCOMYCIN 1,000 MG in SODIUM CHLORIDE 0.9% 250 ML IVPB SCH (20:30)
[2021-04-21 20:53] LABS: Glucose,Whole Blood 138 mg/dL (75-99)
[2021-04-22] MEDS: AMPICILLIN-SULBACTAM 3 GM in SODIUM CHLORIDE 0.9% 100 ML IVPB SCH ×2 (05:43→14:26)
[2021-04-22 07:47] LABS: Glucose,Whole Blood 104 mg/dL (75-99)
[2021-04-22] MEDS: ASPIRIN 81 MG PO SCH (08:05)
[2021-04-22] MEDS: LOSARTAN 50 MG TAB PO SCH (08:05)
[2021-04-22] MEDS: carvediloL 6.25 MG TAB PO SCH ×2 (08:05→21:59)
[2021-04-22] MEDS: ISOSORBIDE MONONITRATE ER 30 MG TAB.ER.24H PO SCH (08:05)
[2021-04-22] MEDS: glipiZIDE 5 MG TAB PO SCH (08:05)
[2021-04-22] MEDS: FAMOTIDINE 20 MG TAB PO SCH (08:05)
[2021-04-22] MEDS: BUMETANIDE 1 MG TAB PO SCH ×2 (08:05→21:59)
[2021-04-22] MEDS: CLOPIDOGREL 75 MG TAB PO SCH (08:05)
[2021-04-22] MEDS: INSULIN ASPART (NovoLOG) 100 UNIT/ML VIAL SQ SCH ×4 (08:06→22:00)
[2021-04-22] MEDS: SPIRONOLACTONE 25 MG TAB PO SCH (08:06)
[2021-04-22] MEDS: HEPARIN SODIUM,PORCINE/PF 5,000 UNIT/0.5 ML SYRINGE SQ SCH ×2 (08:06→21:59)
[2021-04-22] MEDS: POTASSIUM CHLORIDE ER 10 MEQ TAB.ER.PRT PO SCH (08:06)
[2021-04-22] MEDS: MAGNESIUM OXIDE 400 MG TAB PO SCH (08:06)
[2021-04-22] MEDS: SODIUM CHLORIDE 0.9% 1,000 ML IV SCH (08:07)
[2021-04-22] MEDS: HYDROcodone/APAP 5-325MG 1 EACH TAB PO PRN ×2 (08:17→12:32)
[2021-04-22] MEDS: COLLAGENASE 250 UNIT/GM OINTMENT 30 GM TUBE TOPICAL SCH (10:26)
[2021-04-22 12:26] LABS: Glucose,Whole Blood 224 mg/dL (75-99)
[2021-04-22 17:27] LABS: Glucose,Whole Blood 159 mg/dL (75-99)
--- NOTE | 2021-04-22 21:06 | PN ---
PROGRESS NOTE DATE OF SERVICE: 04/22/2021 REASON FOR FOLLOWUP: Infected left leg wound and cellulitis. INTERVAL HISTORY: The patient is afebrile. The patient is currently breathing comfortably. Pain to the left leg is controlled. No chest pain, shortness of breath or cough. No abdominal pain or diarrhea. PHYSICAL EXAMINATION: Blood pressure 127/70 with a pulse of 76, temperature 97.6. She is 100% on room air. General description is an elderly female up in the chair in no distress. Respiratory system: Unlabored breathing, decreased intensity of breath sounds. No wheeze. Heart S1, S2. Regular rate and rhythm. Abdomen soft, no tenderness. Left leg is currently covered with a wound V.A.C. LABS: No new labs have been obtained today. Culture finalized with presumptive MRSA and Gram- negative bacilli. Previous culture was Pseudomonas aeruginosa which has intermediate sensitivity to cefepime. DIAGNOSTIC IMPRESSION AND PLAN: Patient with infected left leg wound with secondary cellulitis, status post debridement. Culture with MRSA and Pseudomonas. Antibiotic has been adjusted to Fortaz to cover for Pseudomonas. Continue vancomycin. He will need a PICC line for outpatient IV antibiotics. Local care to continue with wound V.A.C. MMODL / IJN: [id number] /
[2021-04-22 21:55] LABS: Glucose,Whole Blood 179 mg/dL (75-99)
[2021-04-22] MEDS: ATORVASTATIN 20 MG TAB PO SCH (21:59)
[2021-04-22] MEDS: DONEPEZIL 10 MG TAB PO SCH (22:00)
[2021-04-22] MEDS: VANCOMYCIN 1,000 MG in SODIUM CHLORIDE 0.9% 250 ML IVPB SCH (23:10)
[2021-04-23] MEDS ORDERED: VANCOMYCIN IV PER PHARMACY 1 EACH MISC MISCELLANE PRN (07:41)
[2021-04-23 08:02] LABS: Glucose,Whole Blood 101 mg/dL (75-99)
[2021-04-23] MEDS: INSULIN ASPART (NovoLOG) 100 UNIT/ML VIAL SQ SCH ×4 (08:02→21:48)
[2021-04-23] MEDS: SODIUM CHLORIDE 0.9% 1,000 ML IV SCH ×3 (08:03→17:06)
[2021-04-23 12:00] LABS: Glucose,Whole Blood 175 mg/dL (75-99)
[2021-04-23] MEDS: LOSARTAN 50 MG TAB PO SCH (12:15)
[2021-04-23] MEDS: FAMOTIDINE 20 MG TAB PO SCH (12:15)
[2021-04-23] MEDS: ASPIRIN 81 MG PO SCH (12:15)
[2021-04-23] MEDS: ISOSORBIDE MONONITRATE ER 30 MG TAB.ER.24H PO SCH (12:16)
[2021-04-23] MEDS: POTASSIUM CHLORIDE ER 10 MEQ TAB.ER.PRT PO SCH (12:16)
[2021-04-23] MEDS: SPIRONOLACTONE 25 MG TAB PO SCH (12:16)
[2021-04-23] MEDS: MAGNESIUM OXIDE 400 MG TAB PO SCH (12:16)
[2021-04-23] MEDS: CLOPIDOGREL 75 MG TAB PO SCH (12:16)
[2021-04-23] MEDS: carvediloL 6.25 MG TAB PO SCH ×2 (12:16→21:48)
[2021-04-23] MEDS: BUMETANIDE 1 MG TAB PO SCH ×2 (12:17→21:48)
[2021-04-23] MEDS: glipiZIDE 5 MG TAB PO SCH (12:17)
[2021-04-23] MEDS: HEPARIN SODIUM,PORCINE/PF 5,000 UNIT/0.5 ML SYRINGE SQ SCH ×2 (12:17→21:48)
[2021-04-23] MEDS: COLLAGENASE 250 UNIT/GM OINTMENT 30 GM TUBE TOPICAL SCH (12:17)
[2021-04-23] MEDS: HYDROmorphone 0.5 MG/0.5 ML SYRINGE IVP PRN (12:18)
--- NOTE | 2021-04-23 14:25 | P.PN ---
Subjective Progress Note Date: 04/20/21 Principal diagnosis: Left lower extremity wound infection Physical is an 81 years old female with past medical history of Diabetes Mellitus, Hypertension, Cardiomyopathy, chronic wound to back of left calf. Patient understood bedside stated that she has that insulin for about 2 months where she had bilateral leg swelling, dictated by wounds but in her left leg did not heal. Over the last 2 days he starts to become more painful, with some foul-smelling discharge so decided to come to emergency room Vitas looks stable and patient is afebrile Labs reviewed she has unremarkable CBC. BMP showing mild hyponatremia with sodium 1:30. Rest of BMP and liver enzymes are unremarkable. Creatinine kinase less than 20 None detected. She received normal saline and Zosyn in the emergency room 04/18/2021 Patient is currently sitting in the chair. Left leg wound is wrapped. Still having purulent base. Patient has been afebrile. Pain is controlled fairly. On IV antibiotics and ID service is on board. Deep wound cultures were sent. Denied any chest pain or shortness of breath. No nausea vomiting or abdominal pain or diarrhea. Patient is currently on Unasyn and vancomycin. No headache or dizziness or lightheadedness. Discussed with her daughter at bedside. 04/19/2021 Patient is currently sitting in the chair. Complains of pain at the wound site on the left lower extremity. Vascular surgery has seen the patient and is planning for debridement tomorrow. Anticoagulation and Plavix is on hold. Patient is being current on antibiotics in the form of Unasyn and vancomycin. ID and vascular surgery is on board. Patient has been afebrile. No leukocytosis currently. Current on pain management. No chest pain or shortness breath. Patient is currently sitting in a chair. Still having left leg pain with weightbearing. Improved compared to yesterday. Patient is scheduled for wound debridement today. Continued on IV antibiotics. Follow-up the wound cultures. Patient has been afebrile. Tolerating oral diet. No nausea vomiting or abdominal pain or diarrhea. Current medications reviewed. Objective - Vital Signs Vital signs: Vital Signs Temp 97.8 F 04/20/21 14:47 Pulse 62 04/20/21 14:47 Resp 18 04/20/21 14:47 BP 137/74 04/20/21 14:47 Pulse Ox 98 04/20/21 14:47 Intake & Output 04/19/21 04/20/21 04/20/21 18:59 06:59 18:59 Intake Total 636 Balance 636 Weight 53.07 kg Intake: Intake, IV Titration 200 Amount Ampicillin-Sulbactam 3 gm 200 In Sodium Chloride 0.9% 100 ml @ 200 mls/hr IVPB Q6HR [facility] Rx#:[id number] Oral 436 Other: Voiding Method Diaper Diaper # Voids 4 4 # Bowel Movements 0 - Exam GENERAL: The patient is alert and oriented x3, not in any acute distress. Well developed, well nourished. HEENT: Pupils are round and equally reacting to light. EOMI. No scleral icterus. No conjunctival pallor. Normocephalic, atraumatic. No pharyngeal erythema. No thyromegaly. CARDIOVASCULAR: S1 and S2 present. No murmurs, rubs, or gallops. PULMONARY: Chest is clear to auscultation, no wheezing or crackles. ABDOMEN: Soft, nontender, nondistended, normoactive bowel sounds. No palpable organomegaly. MUSCULOSKELETAL: No joint swelling or deformity. -EXTREMITIES: No cyanosis, clubbing, or pedal edema. Left leg wound behind the lower part of the leg about 3 inches in diameter with surrounding cellulitis with redness swelling and tenderness up to the mid left leg and above the ankle it also she has black eschar at the NEUROLOGICAL: Gross neurological examination did not reveal any focal deficits. SKIN: No rashes. No petechiae - Labs CBC & Chem 7: 04/21/21 09:52 04/23/21 05:30 Labs: Microbiology - Last 24 Hours (Table) 04/16/21 23:00 Blood Culture - Preliminary Blood No Growth after 72 hours 04/17/21 12:45 Gram Stain - Preliminary Leg - Left Wound Culture - Preliminary Presumptive MRSA Gram Neg Bacilli Assessment and Plan Assessment: Infected extensive left calf wound with surrounding cellulitis. Patient also has a black eschar wound on the left leg heal Diabetes mellitus Hypertension History of cardiomyopathy Plan: This is a pleasant 81 years old female who presents with infected left leg wound and cellulitis. Patient also has a black eschar wound on the left leg heal Patient is currently covered with Zosyn. Infectious disease team is following Follow-up deep wound culture . Surgical consult for debridement today. Vascular surgery is following for debridement to tomorrow. Labs and medication were reviewed.. Continue with symptomatic treatment. Monitor lytes and vitals. DVT and GI prophylaxis. DVT prophylaxis: Subcutaneous heparin GI Prophylaxis: Pepcid Time with Patient: Greater than 30
--- NOTE | 2021-04-23 14:27 | P.PN ---
Subjective Progress Note Date: 04/22/21 Principal diagnosis: Left lower extremity wound infection Physical is an 81 years old female with past medical history of Diabetes Mellitus, Hypertension, Cardiomyopathy, chronic wound to back of left calf. Patient understood bedside stated that she has that insulin for about 2 months where she had bilateral leg swelling, dictated by wounds but in her left leg did not heal. Over the last 2 days he starts to become more painful, with some foul-smelling discharge so decided to come to emergency room Vitas looks stable and patient is afebrile Labs reviewed she has unremarkable CBC. BMP showing mild hyponatremia with sodium 1:30. Rest of BMP and liver enzymes are unremarkable. Creatinine kinase less than 20 None detected. She received normal saline and Zosyn in the emergency room 04/18/2021 Patient is currently sitting in the chair. Left leg wound is wrapped. Still having purulent base. Patient has been afebrile. Pain is controlled fairly. On IV antibiotics and ID service is on board. Deep wound cultures were sent. Denied any chest pain or shortness of breath. No nausea vomiting or abdominal pain or diarrhea. Patient is currently on Unasyn and vancomycin. No headache or dizziness or lightheadedness. Discussed with her daughter at bedside. 04/19/2021 Patient is currently sitting in the chair. Complains of pain at the wound site on the left lower extremity. Vascular surgery has seen the patient and is planning for debridement tomorrow. Anticoagulation and Plavix is on hold. Patient is being current on antibiotics in the form of Unasyn and vancomycin. ID and vascular surgery is on board. Patient has been afebrile. No leukocytosis currently. Current on pain management. No chest pain or shortness breath. Patient is currently sitting in a chair. Still having left leg pain with weightbearing. Improved compared to yesterday. Patient is scheduled for wound debridement today. Continued on IV antibiotics. Follow-up the wound cultures. Patient has been afebrile. Tolerating oral diet. No nausea vomiting or abdominal pain or diarrhea. 04/21/2021 Patient is status post left lower extremity wound debridement and wound VAC saleem cement. Follow-up the wound cultures. Patient is on antibiotics as per ID recommendations. Patient is afebrile. Left leg pain is better. No headache or dizziness or lightheadedness. No fever no chills. No nausea vomiting or abdominal pain. 04/22/2021 Patient is currently sitting in the chair. Awake alert and oriented 3. Left leg swelling is better. Wound cultures are growing presumptive MRSA. Currently on vancomycin and cefazolin as per ID recommendations. Blood pressure is stable. Continue with insulin sliding scale. Pain management and patient has been afebrile. No nausea vomiting or abdominal pain or diarrhea. Anticipate discharged with final antibiotic recommendations. Current medications reviewed. Objective - Vital Signs Vital signs: Vital Signs Temp 97.4 F L 04/23/21 08:00 Pulse 85 04/23/21 08:00 Resp 16 04/23/21 08:00 BP 119/73 04/23/21 08:00 Pulse Ox 99 04/23/21 08:00 Intake & Output 04/22/21 04/23/21 04/23/21 18:59 06:59 18:59 Intake Total 800 250 Output Total 300 Balance 800 -50 Intake: Intake, IV Titration 800 Amount Sodium Chloride 0.9% 1, 800 000 ml @ 100 mls/hr IV . Q10H [facility] Rx#:[id number] Oral 250 Output: Urine 300 Other: Voiding Method Bedside Commode # Voids 2 # Bowel Movements 0 - Exam GENERAL: The patient is alert and oriented x3, not in any acute distress. Well developed, well nourished. HEENT: Pupils are round and equally reacting to light. EOMI. No scleral icterus. No conjunctival pallor. Normocephalic, atraumatic. No pharyngeal erythema. No thyromegaly. CARDIOVASCULAR: S1 and S2 present. No murmurs, rubs, or gallops. PULMONARY: Chest is clear to auscultation, no wheezing or crackles. ABDOMEN: Soft, nontender, nondistended, normoactive bowel sounds. No palpable organomegaly. MUSCULOSKELETAL: No joint swelling or deformity. -EXTREMITIES: No cyanosis, clubbing, or pedal edema. Left leg wound behind the lower part of the leg about 3 inches in diameter with surrounding cellulitis . wound VAC in place. NEUROLOGICAL: Gross neurological examination did not reveal any focal deficits. SKIN: No rashes. No petechiae - Labs CBC & Chem 7: 04/21/21 09:52 04/23/21 05:30 Labs: Abnormal Lab Results - Last 24 Hours (Table) 04/21/21 04/22/21 04/22/21 Range/Units 09:52 17:25 21:53 Creatinine (0.52-1.04) mg/dL POC Glucose (mg/dL) 159 H 179 H (75-99) mg/dL Hemoglobin A1c 7.8 H (4.0-6.0) % 04/23/21 04/23/21 04/23/21 Range/Units 05:30 08:01 11:52 Creatinine 3.09 H (0.52-1.04) mg/dL POC Glucose (mg/dL) 101 H 175 H (75-99) mg/dL Hemoglobin A1c (4.0-6.0) % Microbiology - Last 24 Hours (Table) 04/20/21 12:00 Anaerobic Culture - Preliminary Leg - Left 04/16/21 23:00 Blood Culture - Final Blood No Growth after 144 hours Assessment and Plan Assessment: Infected extensive left calf wound with surrounding cellulitis. Patient also has a black eschar wound on the left leg heal Diabetes mellitus Hypertension History of cardiomyopathy Plan: This is a pleasant 81 years old female who presents with infected left leg wound and cellulitis. Patient also has a black eschar wound on the left leg heal Patient is currently covered with Zosyn. Infectious disease team is following Follow-up deep wound culture . 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 Vascular surgery is following for debridement to tomorrow. Labs and medication were reviewed.. Continue with symptomatic treatment. Monitor lytes and vitals. DVT and GI prophylaxis. DVT prophylaxis: Subcutaneous heparin GI Prophylaxis: Pepcid Time with Patient: Greater than 30
--- NOTE | 2021-04-23 14:27 | P.PN ---
Subjective Progress Note Date: 04/21/21 Principal diagnosis: Left lower extremity wound infection Physical is an 81 years old female with past medical history of Diabetes Mellitus, Hypertension, Cardiomyopathy, chronic wound to back of left calf. Patient understood bedside stated that she has that insulin for about 2 months where she had bilateral leg swelling, dictated by wounds but in her left leg did not heal. Over the last 2 days he starts to become more painful, with some foul-smelling discharge so decided to come to emergency room Vitas looks stable and patient is afebrile Labs reviewed she has unremarkable CBC. BMP showing mild hyponatremia with sodium 1:30. Rest of BMP and liver enzymes are unremarkable. Creatinine kinase less than 20 None detected. She received normal saline and Zosyn in the emergency room 04/18/2021 Patient is currently sitting in the chair. Left leg wound is wrapped. Still having purulent base. Patient has been afebrile. Pain is controlled fairly. On IV antibiotics and ID service is on board. Deep wound cultures were sent. Denied any chest pain or shortness of breath. No nausea vomiting or abdominal pain or diarrhea. Patient is currently on Unasyn and vancomycin. No headache or dizziness or lightheadedness. Discussed with her daughter at bedside. 04/19/2021 Patient is currently sitting in the chair. Complains of pain at the wound site on the left lower extremity. Vascular surgery has seen the patient and is planning for debridement tomorrow. Anticoagulation and Plavix is on hold. Patient is being current on antibiotics in the form of Unasyn and vancomycin. ID and vascular surgery is on board. Patient has been afebrile. No leukocytosis currently. Current on pain management. No chest pain or shortness breath. Patient is currently sitting in a chair. Still having left leg pain with weightbearing. Improved compared to yesterday. Patient is scheduled for wound debridement today. Continued on IV antibiotics. Follow-up the wound cultures. Patient has been afebrile. Tolerating oral diet. No nausea vomiting or abdominal pain or diarrhea. 04/21/2021 Patient is status post left lower extremity wound debridement and wound VAC saleem cement. Follow-up the wound cultures. Patient is on antibiotics as per ID recommendations. Patient is afebrile. Left leg pain is better. No headache or dizziness or lightheadedness. No fever no chills. No nausea vomiting or abdominal pain. Current medications reviewed. Objective - Vital Signs Vital signs: Vital Signs Temp 97.6 F 04/21/21 14:00 Pulse 76 04/21/21 14:00 Resp 16 04/21/21 14:00 BP 117/65 04/21/21 14:00 Pulse Ox 98 04/21/21 14:00 Intake & Output 04/21/21 04/21/21 04/22/21 06:59 18:59 06:59 Intake Total 220 Output Total 400 Balance -180 Intake: Oral 220 Output: Urine 400 Other: Voiding Method Bedside Commode Bedside Commode # Voids 2 # Bowel Movements 1 - Exam GENERAL: The patient is alert and oriented x3, not in any acute distress. Well developed, well nourished. HEENT: Pupils are round and equally reacting to light. EOMI. No scleral icterus. No conjunctival pallor. Normocephalic, atraumatic. No pharyngeal erythema. No thyromegaly. CARDIOVASCULAR: S1 and S2 present. No murmurs, rubs, or gallops. PULMONARY: Chest is clear to auscultation, no wheezing or crackles. ABDOMEN: Soft, nontender, nondistended, normoactive bowel sounds. No palpable organomegaly. MUSCULOSKELETAL: No joint swelling or deformity. -EXTREMITIES: No cyanosis, clubbing, or pedal edema. Left leg wound behind the lower part of the leg about 3 inches in diameter with surrounding cellulitis . wound VAC in place. NEUROLOGICAL: Gross neurological examination did not reveal any focal deficits. SKIN: No rashes. No petechiae - Labs CBC & Chem 7: 04/21/21 09:52 04/23/21 05:30 Labs: Abnormal Lab Results - Last 24 Hours (Table) 04/21/21 04/21/21 04/21/21 Range/Units 09:52 09:52 12:18 ESR 44 H (0-20) mm/hr Sodium 132 L (137-145) mmol/L BUN 53 H (7-17) mg/dL Creatinine 1.16 H (0.52-1.04) mg/dL Glucose 215 H (74-99) mg/dL POC Glucose (mg/dL) 191 H (75-99) mg/dL C-Reactive Protein 2.5 H (<1.0) mg/dL 04/21/21 04/21/21 Range/Units 16:48 20:49 ESR (0-20) mm/hr Sodium (137-145) mmol/L BUN (7-17) mg/dL Creatinine (0.52-1.04) mg/dL Glucose (74-99) mg/dL POC Glucose (mg/dL) 150 H 138 H (75-99) mg/dL C-Reactive Protein (<1.0) mg/dL Microbiology - Last 24 Hours (Table) 04/20/21 12:00 Gram Stain - Preliminary Leg - Left Wound Culture - Preliminary Presumptive MRSA Gram Neg Bacilli 04/17/21 12:45 Gram Stain - Final Leg - Left Wound Culture - Final Methicillin resist S. aureus Pseudomonas aeruginosa 04/16/21 23:00 Blood Culture - Preliminary Blood No Growth after 96 hours 04/20/21 12:00 Anaerobic Culture - Preliminary Leg - Left Assessment and Plan Assessment: Infected extensive left calf wound with surrounding cellulitis. Patient also has a black eschar wound on the left leg heal Diabetes mellitus Hypertension History of cardiomyopathy Plan: This is a pleasant 81 years old female who presents with infected left leg wound and cellulitis. Patient also has a black eschar wound on the left leg heal Patient is currently covered with Zosyn. Infectious disease team is following Follow-up deep wound culture . 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 Vascular surgery is following for debridement to tomorrow. Labs and medication were reviewed.. Continue with symptomatic treatment. Monitor lytes and vitals. DVT and GI prophylaxis. DVT prophylaxis: Subcutaneous heparin GI Prophylaxis: Pepcid
--- NOTE | 2021-04-23 14:30 | P.PN ---
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 Patient understood bedside stated that she has that insulin for about 2 months where she had bilateral leg swelling, dictated by wounds but in her left leg did not heal. Over the last 2 days he starts to become more painful, with some foul-smelling discharge so decided to come to emergency room Vitas looks stable and patient is afebrile Labs reviewed she has unremarkable CBC. BMP showing mild hyponatremia with sodium 1:30. Rest of BMP and liver enzymes are unremarkable. Creatinine kinase less than 20 None detected. She received normal saline and Zosyn in the emergency room 04/18/2021 Patient is currently sitting in the chair. Left leg wound is wrapped. Still having purulent base. Patient has been afebrile. Pain is controlled fairly. On IV antibiotics and ID service is on board. Deep wound cultures were sent. Denied any chest pain or shortness of breath. No nausea vomiting or abdominal pain or diarrhea. Patient is currently on Unasyn and vancomycin. No headache or dizziness or lightheadedness. Discussed with her daughter at bedside. 04/19/2021 Patient is currently sitting in the chair. Complains of pain at the wound site on the left lower extremity. Vascular surgery has seen the patient and is planning for debridement tomorrow. Anticoagulation and Plavix is on hold. Patient is being current on antibiotics in the form of Unasyn and vancomycin. ID and vascular surgery is on board. Patient has been afebrile. No leukocytosis currently. Current on pain management. No chest pain or shortness breath. Patient is currently sitting in a chair. Still having left leg pain with weightbearing. Improved compared to yesterday. Patient is scheduled for wound debridement today. Continued on IV antibiotics. Follow-up the wound cultures. Patient has been afebrile. Tolerating oral diet. No nausea vomiting or abdominal pain or diarrhea. 04/21/2021 Patient is status post left lower extremity wound debridement and wound VAC saleem cement. Follow-up the wound cultures. Patient is on antibiotics as per ID recommendations. Patient is afebrile. Left leg pain is better. No headache or dizziness or lightheadedness. No fever no chills. No nausea vomiting or abdominal pain. 04/22/2021 Patient is currently sitting in the chair. Awake alert and oriented 3. Left leg swelling is better. Wound cultures are growing presumptive MRSA. Currently on vancomycin and cefazolin as per ID recommendations. Blood pressure is stable. Continue with insulin sliding scale. Pain management and patient has been afebrile. No nausea vomiting or abdominal pain or diarrhea. Anticipate discharged with final antibiotic recommendations. 04/23/2021 Patient is currently sitting in the chair. Still having left leg pain with weightbearing. Wound VAC in place. Status post debridement. Wound cultures are growing presented to MRSA and gram-negative bacilli. Currently on vancomycin and cefazolin. ID is on board. Awaiting final culture report and possible IV antibiotics as an outpatient. Patient may need rehab for IV antibiotics. Patient is afebrile. No chest pain or shortness of breath. No nausea vomiting or abdominal pain or diarrhea. No dysuria or hematuria. Encourage oral intake. Patient does complain of nausea today. Current medications reviewed. Objective - Vital Signs Vital signs: Vital Signs Temp 97.4 F L 04/23/21 08:00 Pulse 85 04/23/21 08:00 Resp 16 04/23/21 08:00 BP 119/73 04/23/21 08:00 Pulse Ox 99 04/23/21 08:00 Intake & Output 04/22/21 04/23/21 04/23/21 18:59 06:59 18:59 Intake Total 800 250 Output Total 300 Balance 800 -50 Intake: Intake, IV Titration 800 Amount Sodium Chloride 0.9% 1, 800 000 ml @ 100 mls/hr IV . Q10H [facility] Rx#:[id number] Oral 250 Output: Urine 300 Other: Voiding Method Bedside Commode # Voids 2 # Bowel Movements 0 - Exam GENERAL: The patient is alert and oriented x3, not in any acute distress. Well developed, well nourished. HEENT: Pupils are round and equally reacting to light. EOMI. No scleral icterus. No conjunctival pallor. Normocephalic, atraumatic. No pharyngeal erythema. No thyromegaly. CARDIOVASCULAR: S1 and S2 present. No murmurs, rubs, or gallops. PULMONARY: Chest is clear to auscultation, no wheezing or crackles. ABDOMEN: Soft, nontender, nondistended, normoactive bowel sounds. No palpable organomegaly. MUSCULOSKELETAL: No joint swelling or deformity. -EXTREMITIES: No cyanosis, clubbing, or pedal edema. Left leg wound behind the lower part of the leg about 3 inches in diameter with surrounding cellulitis . wound VAC in place. NEUROLOGICAL: Gross neurological examination did not reveal any focal deficits. SKIN: No rashes. No petechiae - Labs CBC & Chem 7: 04/24/21 07:56 04/25/21 05:15 Labs: Abnormal Lab Results - Last 24 Hours (Table) 04/21/21 04/22/21 04/22/21 Range/Units 09:52 17:25 21:53 Creatinine (0.52-1.04) mg/dL POC Glucose (mg/dL) 159 H 179 H (75-99) mg/dL Hemoglobin A1c 7.8 H (4.0-6.0) % 04/23/21 04/23/21 04/23/21 Range/Units 05:30 08:01 11:52 Creatinine 3.09 H (0.52-1.04) mg/dL POC Glucose (mg/dL) 101 H 175 H (75-99) mg/dL Hemoglobin A1c (4.0-6.0) % Microbiology - Last 24 Hours (Table) 04/20/21 12:00 Anaerobic Culture - Preliminary Leg - Left 04/16/21 23:00 Blood Culture - Final Blood No Growth after 144 hours Assessment and Plan Assessment: Infected extensive left calf wound with surrounding cellulitis. Patient also has a black eschar wound on the left leg heal. Status post debridement. Wound cultures growing presented to MRSA and gram-negative bacilli.2 Diabetes mellitus2 Hypertension History of cardiomyopathy Plan: This is a pleasant 81 years old female who presents with infected left leg wound and cellulitis. Patient also has a black eschar wound on the left leg heal Patient is currently covered with vancomycin and cefazolin.. Infectious disease team is following Follow-up deep wound culture . Patient is status post surgical debridement on 04/20/2021. Labs and medication were reviewed.. Continue with symptomatic treatment. Monitor lytes and vitals. DVT and GI prophylaxis. DVT prophylaxis: Subcutaneous heparin GI Prophylaxis: Pepcid
[2021-04-23 16:49] LABS: Glucose,Whole Blood 170 mg/dL (75-99)
[2021-04-23 20:20] LABS: Glucose,Whole Blood 261 mg/dL (75-99)
--- NOTE | 2021-04-23 21:17 | PN ---
PROGRESS NOTE DATE OF SERVICE: 04/23/2021 REASON FOR FOLLOWUP: Left leg wound infection. INTERVAL HISTORY: The patient is afebrile. The patient is breathing comfortably. The patient denies having any chest pain, shortness of breath or cough. No abdominal pain. Pain to the left leg is currently controlled. PHYSICAL EXAMINATION: Blood pressure 119/71 with a pulse of 82, temperature 97.3. She is 99% on room air. General description is an elderly female up in the chair in no distress. Respiratory system: Unlabored breathing. Clear to auscultation anteriorly. Heart S1, S2. Regular rate and rhythm. Abdomen soft, no tenderness. Left leg is currently covered with a wound V.A.C. LABS: No new labs have been obtained today. DIAGNOSTIC IMPRESSION AND PLAN: Patient with left leg wound infection, status post debridement. Culture positive for Pseudomonas and MRSA. Patient will get a PICC line. Plan for at least 2 weeks of IV antibiotics. Local wound care with wound V.A.C. and close outpatient followup. MMODL / IJN: [id number] /
[2021-04-23] MEDS: ATORVASTATIN 20 MG TAB PO SCH (21:48)
[2021-04-23] MEDS: DONEPEZIL 10 MG TAB PO SCH (21:49)
[2021-04-24] MEDS: SODIUM CHLORIDE 0.9% 1,000 ML IV SCH (01:41)
[2021-04-24 07:07] LABS: Glucose,Whole Blood 87 mg/dL (75-99)
[2021-04-24] MEDS: INSULIN ASPART (NovoLOG) 100 UNIT/ML VIAL SQ SCH ×4 (07:14→20:42)
[2021-04-24 08:43] LABS: Basophils % (A) 0 %; Eosinophils # (A) 0.1 k/uL (0-0.7); Eosinophils % (A) 2 %; HCT 38.1 % (34.0-46.0); HGB 13.1 gm/dL (11.4-16.0); Lymphocytes # (A) 1.5 k/uL (1.0-4.8); Lymphocytes % (A) 23 %; MCHC 34.2 g/dL (31.0-37.0); MCV 90.6 fL (80.0-100.0); Mean Platelet Volume 8.3; Monocytes # (A) 0.4 k/uL (0-1.0); Monocytes % (A) 6 %; Neutrophils # (A) 4.5 k/uL (1.3-7.7); Neutrophils % (A) 68 %; Platelet Count 160 k/uL (150-450); RBC 4.21 m/uL (3.80-5.40); RDW 14.7 % (11.5-15.5); WBC 6.6 k/uL (3.8-10.6)
[2021-04-24 08:44] LABS: Calcium 8.7 mg/dL (8.4-10.2)
[2021-04-24 09:10] LABS: Potassium 6.6 mmol/L (3.5-5.1)
[2021-04-24] MEDS: ASPIRIN 81 MG PO SCH (09:16)
[2021-04-24] MEDS: BUMETANIDE 1 MG TAB PO SCH (09:16)
[2021-04-24] MEDS: FAMOTIDINE 20 MG TAB PO SCH (09:17)
[2021-04-24] MEDS: carvediloL 6.25 MG TAB PO SCH ×2 (09:17→20:41)
[2021-04-24] MEDS: CLOPIDOGREL 75 MG TAB PO SCH (09:17)
[2021-04-24] MEDS: ISOSORBIDE MONONITRATE ER 30 MG TAB.ER.24H PO SCH (09:17)
[2021-04-24] MEDS: HEPARIN SODIUM,PORCINE/PF 5,000 UNIT/0.5 ML SYRINGE SQ SCH ×2 (09:17→20:41)
[2021-04-24] MEDS: SPIRONOLACTONE 25 MG TAB PO SCH (09:18)
[2021-04-24] MEDS: MAGNESIUM OXIDE 400 MG TAB PO SCH (09:18)
[2021-04-24] MEDS: LOSARTAN 50 MG TAB PO SCH (09:18)
[2021-04-24] MEDS ORDERED: INSULIN REGULAR 100 UNIT/ML VIAL (IV) IV ONE (09:18)
[2021-04-24] MEDS ORDERED: DEXTROSE 50% SYRINGE 50 ML IVP STA (09:18)
[2021-04-24] MEDS: POTASSIUM CHLORIDE ER 10 MEQ TAB.ER.PRT PO SCH (09:23)
[2021-04-24] MEDS: glipiZIDE 5 MG TAB PO SCH (09:23)
[2021-04-24 10:02] LABS: Glucose,Whole Blood 194 mg/dL (75-99)
[2021-04-24] MEDS ORDERED: SODIUM ZIRCONIUM CYCLOSILICATE 10 GM PACKET PO ONE (11:26)
[2021-04-24] MEDS ORDERED: SODIUM BICARB 8.4% 50 ML SYR (1 MEQ/ML) IV STA (11:26)
--- NOTE | 2021-04-24 11:30 | P.NPCON ---
History of Present Illness - Reason for Consult acute renal failure, hyperkalemia - History of Present Illness Reason for consultation: Acute kidney injury History of present illness: Patient is a 81-year-old female seen in consultation for acute kidney injury. Patient's baseline creatinine is near 1 and is up to 3.88 today. Patient states she hasn't been urinating much. She does not have a Gregorio catheter. She is wearing depends. Patient presented to the hospital on 04/16/2021 due to nonhealing left leg wound. She underwent debridement and currently has a wound VAC. Potassium level is high at 6.6 today. Bicarb level is 13. She did receive IV insulin with D50 this morning. She denies chest pain or shortness of breath. She did vomit a few times. Oral intake has been poor. Blood pressure stable. Cultures from the wound came back positive for MRSA as well as pseudomonas. She is on IV antibiotics. Including IV vancomycin. Vancomycin level was noted to be 29 from today. She admits to taking Motrin about once a week. She does have long-standing history of diabetes. Patient is maintained on a potassium supplementation as well as spironolactone. She is also on Bumex and IV fluids at this time. Vital signs are stable. General: The patient appeared well nourished and normally developed. HEENT: Head exam is unremarkable. LUNGS: Breath sounds decreased. HEART: Rate and Rhythm are regular. ABDOMEN: Soft, no distention. EXTREMITITES: 1+ edema. Wound VAC noted. No drainage. Past Medical History Past Medical History: Coronary Artery Disease (CAD), Heart Failure, Diabetes Mellitus, Hypertension, Myocardial Infarction (NC), Pneumonia, Vascular Disorder Additional Past Medical History / Comment(s): Pt recently admitted to [facility] on 03/14/21 with CHF/L pleural effusion. Other hx: Chronic L calf wound/WCC, NIDM type II, neuropathy L foot/leg, cardiomyopathy/sees Dr Knight in [place], MIs, mild cognitive impairment, incontinence, iron anemia, hypmagnesemia Last Myocardial Infarction Date:: unsure History of Any Multi-Drug Resistant Organisms: None Reported Past Surgical History: AICD, Bladder Surgery, Coronary Bypass/CABG, Heart Catheterization, Heart Catheterization With Stent, Hysterectomy, Joint Replacement, Pacemaker Additional Past Surgical History / Comment(s): 10/2020 AICD/pacer, PCI stents, 2010 CABG 3 vessel, L leg wound I&D, bkadder suspension, ovarian cyst removal, D&C, rectocele, colonoscopy, total r knee arthroplasty. Past Anesthesia/Blood Transfusion Reactions: No Reported Reaction Date of Last Stent Placement:: unknown Type of Cardiac Device: AICD Device Placement Date:: 2020 Smoking Status: Never smoker - Past Family History Father Family Medical History: No Reported History Additional Family Medical History / Comment(s): Father had heart problems. He chewed tobacco, smoked and drank quit a bit of alcohol. Mother Family Medical History: Diabetes Mellitus Medications and Allergies Home Medications Medication Instructions Recorded Confirmed Type Aspirin EC [Ecotrin Low Dose] 81 mg PO DAILY 03/14/21 04/16/21 History Atorvastatin [Lipitor] 20 mg PO HS 03/14/21 04/16/21 History Bumetanide [BUMEX] 1 mg PO BID 03/14/21 04/16/21 History Clopidogrel [Plavix] 75 mg PO DAILY 03/14/21 04/16/21 History Collagenase [Santyl Ointment] 1 applic TOPICAL Q12H 03/14/21 04/16/21 History Donepezil [Aricept] 10 mg PO HS 03/14/21 04/16/21 History Isosorbide Mononitrate ER [Imdur] 30 mg PO DAILY 03/14/21 04/16/21 History Magnesium Oxide 400 mg PO DAILY 03/14/21 04/16/21 History Potassium Chloride ER [K-Dur 10] 10 meq PO DAILY 03/14/21 04/16/21 History glipiZIDE [Glucotrol] 5 mg PO DAILY 03/14/21 04/16/21 History HYDROcodone/APAP 5-325MG [[place] 1 tab PO Q4HR PRN #18 tab 03/20/21 04/16/21 Rx 5-325] Losartan [Cozaar] 50 mg PO DAILY tab 03/20/21 04/16/21 Rx Melatonin 3 mg PO HS PRN tablet 03/20/21 04/16/21 Rx Spironolactone [Aldactone] 25 mg PO DAILY tab 03/20/21 04/16/21 Rx ALPRAZolam [Xanax] 0.25 mg PO BID PRN 04/16/21 04/16/21 History Benzocaine/Menthol [Dermoplast 1 spray TOPICAL BID PRN 04/16/21 04/16/21 History Pain Relieving [place]] Ferrous Sulfate [Iron (65 MG 325 mg PO BID 04/16/21 04/16/21 History Elemental)] Nystatin 100,000 Unit/gm Powd 1 applic TOPICAL BID PRN 04/16/21 04/16/21 History [Mycostatin Powder] carvediloL [Coreg] 3.125 mg PO BID 04/16/21 04/16/21 History metFORMIN HCL [Glucophage] 500 mg PO BID 04/16/21 04/16/21 History Allergies Allergy/AdvReac Type Severity Reaction Status Date / Time Sulfa (Sulfonamide Allergy Anaphylaxis Verified 04/16/21 23:40 Antibiotics) Physical Exam Vitals: Vital Signs Temp Pulse Pulse Resp BP Pulse Ox 04/24/21 10:49 97.5 F L 04/24/21 08:09 81 123/74 98 04/24/21 00:40 96.7 F L 79 16 122/77 100 04/23/21 18:45 97.3 F L 82 16 L 16 119/71 99 04/23/21 14:04 97.2 F L 70 16 118/73 98 Intake and Output 04/23/21 04/24/21 04/24/21 22:59 06:59 14:59 Intake Total 120 800 240 Balance 120 800 240 Intake: Intake, IV Titration 800 Amount Sodium Chloride 0.9% 1, 700 000 ml @ 100 mls/hr IV . Q10H [facility] Rx#:[id number] cefTAZidime 2 gm In 100 Sodium Chloride 0.9% 100 ml @ 25 mls/hr IVPB Q24H [facility] Rx#:[id number] Oral 120 240 Other: Voiding Method Bedside Commode Bedside Commode # Voids 1 # Bowel Movements 1 Results - Lab Results Most recent lab results Calcium 8.7 mg/dL (8.4-10.2) 04/24/21 07:56 04/24/21 07:56 04/24/21 07:56 Assessment and Plan Plan: Assessment: 1. Acute kidney injury secondary to ATN secondary to infection and vancomycin toxicity. Vancomycin level XXIX today. Baseline creatinine near 1 and is up to 3.88 today. 2. Hyperkalemia secondary to acute kidney injury, metabolic acidosis, losartan potassium supplementation and spironolactone. 3. Metabolic acidosis secondary to acute kidney injury. 4. Left lower extremity wound status post debridement and wound VAC placement. Culture positive for pseudomonas and MRSA. On antibiotics. 5. Diabetes mellitus. 6. Benign hypertension. Controlled. . Hyponatremia secondary to acute kidney injury Plan: Change IV fluids to sodium bicarb drip to be run at 75 mL an hour. 3 A of sodium bicarbonate IV push now. Stop losartan, potassium supplementation and spironolactone. Stop bumex. Patient received IV insulin with D50 this morning. I will give her dose of lokelma now. Repeat potassium level this afternoon. Insert Gregorio catheter. Strict I's and O's. Check renal ultrasound. Dose of vancomycin to be adjusted for renal function. Continue to assess daily for need for renal replacement therapy. Case discussed with the patient and her daughter present at bedside. Thank you for the consultation. I will continue to follow patient with you during her hospital stay.
[2021-04-24] MEDS ORDERED: FUROSEMIDE 10 MG/ML 10 ML VIAL IV STA (11:31)
[2021-04-24 11:50] LABS: Glucose,Whole Blood 215 mg/dL (75-99)
--- NOTE | 2021-04-24 12:25 | US ---
EXAMINATION TYPE: US kidneys/renal and bladder DATE OF EXAM: 04/24/2021 COMPARISON: NONE CLINICAL HISTORY: mel. EXAM MEASUREMENTS: Right Kidney: 12.3x5.9x5.0 cm Left Kidney: 10.2x6.1x5.3 cm Right Kidney: wnl Left Kidney: Scarring noted inferiorly. 1.4x1.3x1.3cm cyst Superior Bladder: Empty Bilateral Jets seen: No There is no evidence for hydronephrosis at this point in time. No nephrolithiasis is seen. No solid masses are identified. The urinary bladder is anechoic. IMPRESSION: Cyst left kidney
[2021-04-24] MEDS: DEXTROSE 5% IN WATER 1,000 ML with SODIUM BICARB (1 MEQ/ML) 150 ML IV SCH (13:25)
[2021-04-24] MEDS: HYDROcodone/APAP 5-325MG 1 EACH TAB PO PRN (14:39)
[2021-04-24] MEDS: HYDROmorphone 0.5 MG/0.5 ML SYRINGE IVP PRN ×2 (16:19→20:42)
[2021-04-24 16:30] LABS: Glucose,Whole Blood 130 mg/dL (75-99)
[2021-04-24 20:16] LABS: Glucose,Whole Blood 180 mg/dL (75-99)
[2021-04-24] MEDS: ATORVASTATIN 20 MG TAB PO SCH (20:41)
[2021-04-24] MEDS: DONEPEZIL 10 MG TAB PO SCH (20:41)
--- NOTE | 2021-04-24 22:03 | PN ---
PROGRESS NOTE DATE OF SERVICE: 04/24/2021 REASON FOR FOLLOWUP: Left leg infected wound. INTERVAL HISTORY: Patient is afebrile. The patient is breathing comfortably. Patient denies having any chest pain, shortness of breath or cough. No nausea or abdominal pain. Pain to the left leg is currently controlled. PHYSICAL EXAMINATION: Blood pressure 132/71, pulse of 83, temperature 98.4. She is 99% on room air. General description is an elderly female up in the chair in no distress. Respiratory system: Unlabored breathing, clear to auscultation anteriorly. Heart S1, S2. Regular rate and rhythm. Abdomen soft, no tenderness. Left leg is currently covered with wound VAC. LABS: The patient did have significant worsening of her kidney function. Vanco random has been elevated 29. DIAGNOSTIC IMPRESSION/PLAN: Patient with left leg wound and infection. Culture positive for MRSA and Pseudomonas aeruginosa. Unfortunately, patient developed renal insufficiency, could be related to vancomycin. Vancomycin will be discontinued. Daptomycin will be added once the Vanco trough is below 15. Continue with Fortaz. She will need a PICC line and outpatient antibiotic. Continue supportive care. MMODL / IJN: [id number] /
[2021-04-24] MEDS: COLLAGENASE 250 UNIT/GM OINTMENT 30 GM TUBE TOPICAL SCH (22:58)
[2021-04-25] MEDS: HYDROcodone/APAP 5-325MG 1 EACH TAB PO PRN ×2 (02:52→19:44)
[2021-04-25] MEDS: DEXTROSE 5% IN WATER 1,000 ML with SODIUM BICARB (1 MEQ/ML) 150 ML IV SCH (05:31)
[2021-04-25 06:11] LABS: Magnesium 2.2 mg/dL (1.6-2.3); Potassium 5.2 mmol/L (3.5-5.1)
[2021-04-25 07:34] LABS: Vancomycin,Random 26.3 ug/mL
[2021-04-25 07:46] LABS: Glucose,Whole Blood 202 mg/dL (75-99)
[2021-04-25] MEDS: ONDANSETRON 4 MG/2 ML VIAL IVP PRN ×2 (08:37→13:47)
[2021-04-25] MEDS: INSULIN ASPART (NovoLOG) 100 UNIT/ML VIAL SQ SCH ×4 (08:38→21:58)
[2021-04-25] MEDS: carvediloL 6.25 MG TAB PO SCH ×2 (08:44→19:44)
[2021-04-25] MEDS: ASPIRIN 81 MG PO SCH (08:44)
[2021-04-25] MEDS: ISOSORBIDE MONONITRATE ER 30 MG TAB.ER.24H PO SCH (08:44)
[2021-04-25] MEDS: HEPARIN SODIUM,PORCINE/PF 5,000 UNIT/0.5 ML SYRINGE SQ SCH ×2 (08:44→19:45)
[2021-04-25] MEDS: CLOPIDOGREL 75 MG TAB PO SCH (08:44)
[2021-04-25] MEDS: glipiZIDE 5 MG TAB PO SCH (08:44)
[2021-04-25] MEDS: MAGNESIUM OXIDE 400 MG TAB PO SCH (08:44)
[2021-04-25] MEDS: FAMOTIDINE 20 MG TAB PO SCH (08:44)
[2021-04-25] MEDS ORDERED: FUROSEMIDE 10 MG/ML 4 ML VIAL IV STA (08:52)
--- NOTE | 2021-04-25 08:54 | P.PN ---
Subjective Patient is seen in follow for acute kidney injury. Renal function a little better today. Has a Gregorio catheter. Urine output documented as 2.4 L in the last 24 hours. No vomiting. Feels a little nauseated this morning. Vital signs are stable. General: The patient appeared well nourished and normally developed. HEENT: Head exam is unremarkable. LUNGS: Breath sounds decreased. HEART: Rate and Rhythm are regular. ABDOMEN: Soft, no distention. EXTREMITITES: Trace edema. Wound VAC noted. No drainage. Objective - Vital Signs Vital signs: Vital Signs Temp 97.3 F L 04/25/21 05:51 Pulse 71 04/25/21 05:51 Resp 18 04/25/21 05:51 BP 122/81 04/25/21 05:51 Pulse Ox 99 04/25/21 05:51 Intake & Output 04/24/21 04/25/21 04/25/21 18:59 06:59 18:59 Intake Total 1315 500 Output Total 2400 Balance 1315 -1900 Intake: Intake, IV Titration 1075 Amount Dextrose 5% in Water 1, 375 000 ml @ 75 mls/hr IV . [id number] [facility] with Sodium Bicarb (1 Meq/ml) 150 ml Rx#:[id number] Sodium Chloride 0.9% 1, 700 000 ml @ 100 mls/hr IV . Q10H [facility] Rx#:[id number] Oral 240 500 Output: Urine 2400 Other: Voiding Method Bedside Commode Indwelling Catheter # Voids 1 # Bowel Movements 1 - Labs CBC & Chem 7: 04/24/21 07:56 04/25/21 05:15 Labs: Abnormal Lab Results - Last 24 Hours (Table) 04/24/21 04/24/21 04/24/21 Range/Units 07:56 09:59 11:48 Sodium 129 L (137-145) mmol/L Potassium 6.6 H* (3.5-5.1) mmol/L Chloride (98-107) mmol/L Carbon Dioxide 13 L (22-30) mmol/L BUN 90 H (7-17) mg/dL Creatinine 3.88 H (0.52-1.04) mg/dL Glucose 138 H (74-99) mg/dL POC Glucose (mg/dL) 194 H 215 H (75-99) mg/dL 04/24/21 04/24/21 04/24/21 Range/Units 15:07 16:25 20:14 Sodium (137-145) mmol/L Potassium 5.2 H (3.5-5.1) mmol/L Chloride (98-107) mmol/L Carbon Dioxide (22-30) mmol/L BUN (7-17) mg/dL Creatinine (0.52-1.04) mg/dL Glucose (74-99) mg/dL POC Glucose (mg/dL) 130 H 180 H (75-99) mg/dL 04/25/21 04/25/21 Range/Units 05:15 07:44 Sodium 128 L (137-145) mmol/L Potassium 5.2 H (3.5-5.1) mmol/L Chloride 96 L (98-107) mmol/L Carbon Dioxide 21 L (22-30) mmol/L BUN 82 H (7-17) mg/dL Creatinine 3.51 H (0.52-1.04) mg/dL Glucose 188 H (74-99) mg/dL POC Glucose (mg/dL) 202 H (75-99) mg/dL Microbiology - Last 24 Hours (Table) 04/20/21 12:00 Anaerobic Culture - Final Leg - Left Assessment and Plan Plan: Assessment: 1. Acute kidney injury secondary to ATN secondary to infection and vancomycin toxicity. Vancomycin level peaked at 29 this admission on 04/24/2021 - 26.3 today. Baseline creatinine near 1 and peaked at 3.88 on April 24 - 3.53 today. No hydronephrosis noted on kidney ultrasound. 2. Hyperkalemia secondary to acute kidney injury, metabolic acidosis, losartan potassium supplementation and spironolactone. Better. 3. Metabolic acidosis secondary to acute kidney injury. Improved. 4. Left lower extremity wound status post debridement and wound VAC placement. Culture positive for pseudomonas and MRSA. On antibiotics. 5. Diabetes mellitus. 6. Benign hypertension. Controlled. 7. Hyponatremia secondary to acute kidney injury. Plan: Stop bicarb drip. Start normal saline at 50 mL an hour. Lasix 40 mg IV once today. 1200 mL fluid restriction. Encouraged oral intake. Stopped losartan, potassium supplementation and spironolactone. Repeat potassium level this afternoon. Strict I's and O's. Dose of vancomycin to be adjusted for renal function. Continue to assess daily for need for renal replacement therapy. Add oral bicarb. Check chest x-ray.
--- NOTE | 2021-04-25 09:30 | P.PN ---
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 Patient understood bedside stated that she has that insulin for about 2 months where she had bilateral leg swelling, dictated by wounds but in her left leg did not heal. Over the last 2 days he starts to become more painful, with some foul-smelling discharge so decided to come to emergency room Vitas looks stable and patient is afebrile Labs reviewed she has unremarkable CBC. BMP showing mild hyponatremia with sodium 1:30. Rest of BMP and liver enzymes are unremarkable. Creatinine kinase less than 20 None detected. She received normal saline and Zosyn in the emergency room 04/18/2021 Patient is currently sitting in the chair. Left leg wound is wrapped. Still having purulent base. Patient has been afebrile. Pain is controlled fairly. On IV antibiotics and ID service is on board. Deep wound cultures were sent. Denied any chest pain or shortness of breath. No nausea vomiting or abdominal pain or diarrhea. Patient is currently on Unasyn and vancomycin. No headache or dizziness or lightheadedness. Discussed with her daughter at bedside. 04/19/2021 Patient is currently sitting in the chair. Complains of pain at the wound site on the left lower extremity. Vascular surgery has seen the patient and is planning for debridement tomorrow. Anticoagulation and Plavix is on hold. Patient is being current on antibiotics in the form of Unasyn and vancomycin. ID and vascular surgery is on board. Patient has been afebrile. No leukocytosis currently. Current on pain management. No chest pain or shortness breath. Patient is currently sitting in a chair. Still having left leg pain with weightbearing. Improved compared to yesterday. Patient is scheduled for wound debridement today. Continued on IV antibiotics. Follow-up the wound cultures. Patient has been afebrile. Tolerating oral diet. No nausea vomiting or abdominal pain or diarrhea. 04/21/2021 Patient is status post left lower extremity wound debridement and wound VAC saleem cement. Follow-up the wound cultures. Patient is on antibiotics as per ID recommendations. Patient is afebrile. Left leg pain is better. No headache or dizziness or lightheadedness. No fever no chills. No nausea vomiting or abdominal pain. 04/22/2021 Patient is currently sitting in the chair. Awake alert and oriented 3. Left leg swelling is better. Wound cultures are growing presumptive MRSA. Currently on vancomycin and cefazolin as per ID recommendations. Blood pressure is stable. Continue with insulin sliding scale. Pain management and patient has been afebrile. No nausea vomiting or abdominal pain or diarrhea. Anticipate discharged with final antibiotic recommendations. 04/23/2021 Patient is currently sitting in the chair. Still having left leg pain with weightbearing. Wound VAC in place. Status post debridement. Wound cultures are growing presented to MRSA and gram-negative bacilli. Currently on vancomycin and cefazolin. ID is on board. Awaiting final culture report and possible IV antibiotics as an outpatient. Patient may need rehab for IV antibiotics. Patient is afebrile. No chest pain or shortness of breath. No nausea vomiting or abdominal pain or diarrhea. No dysuria or hematuria. Encourage oral intake. Patient does complain of nausea today. On 04/24/2021 04/24/2021 Patient is currently sitting in the chair. Denied any complaints of chest pain or shortness of breath. She complains of leg pain. Status post debridement and wound VAC placement. Wound cultures are growing presumptive to MRSA and gram-negative bacilli. Otherwise patient does have decreased urine output and renal function worsened with creatinine level went up to 3.88 this morning. Potassium 6.6. Nephrology was consulted. He is on board. Antibiotics changed to daptomycin. Patient has been afebrile. No nausea vomiting or abdominal pain or diarrhea. Tolerating oral diet. Current medications reviewed. Objective - Vital Signs Vital signs: Vital Signs Temp 98.4 F 04/24/21 19:47 Pulse 83 04/24/21 19:47 Resp 16 04/24/21 19:47 BP 132/71 04/24/21 19:47 Pulse Ox 99 04/24/21 19:47 Intake & Output 04/24/21 04/24/21 04/25/21 06:59 18:59 06:59 Intake Total 800 1315 Output Total 1000 Balance 800 1315 -1000 Intake: Intake, IV Titration 800 1075 Amount Dextrose 5% in Water 1, 375 000 ml @ 75 mls/hr IV . [id number] [facility] with Sodium Bicarb (1 Meq/ml) 150 ml Rx#:[id number] Sodium Chloride 0.9% 1, 700 700 000 ml @ 100 mls/hr IV . Q10H [facility] Rx#:[id number] cefTAZidime 2 gm In 100 Sodium Chloride 0.9% 100 ml @ 25 mls/hr IVPB Q24H [facility] Rx#:[id number] Oral 240 Output: Urine 1000 Other: Voiding Method Bedside Commode Bedside Commode # Voids 1 # Bowel Movements 1 - Exam GENERAL: The patient is alert and oriented x3, not in any acute distress. Well developed, well nourished. HEENT: Pupils are round and equally reacting to light. EOMI. No scleral icterus. No conjunctival pallor. Normocephalic, atraumatic. No pharyngeal erythema. No thyromegaly. CARDIOVASCULAR: S1 and S2 present. No murmurs, rubs, or gallops. PULMONARY: Chest is clear to auscultation, no wheezing or crackles. ABDOMEN: Soft, nontender, nondistended, normoactive bowel sounds. No palpable organomegaly. MUSCULOSKELETAL: No joint swelling or deformity. -EXTREMITIES: No cyanosis, clubbing, or pedal edema. Left leg wound behind the lower part of the leg about 3 inches in diameter with surrounding cellulitis . wound VAC in place. NEUROLOGICAL: Gross neurological examination did not reveal any focal deficits. SKIN: No rashes. No petechiae - Labs CBC & Chem 7: 04/24/21 07:56 04/25/21 05:15 Labs: Abnormal Lab Results - Last 24 Hours (Table) 04/24/21 04/24/21 04/24/21 Range/Units 07:56 09:59 11:48 Sodium 129 L (137-145) mmol/L Potassium 6.6 H* (3.5-5.1) mmol/L Carbon Dioxide 13 L (22-30) mmol/L BUN 90 H (7-17) mg/dL Creatinine 3.88 H (0.52-1.04) mg/dL Glucose 138 H (74-99) mg/dL POC Glucose (mg/dL) 194 H 215 H (75-99) mg/dL 04/24/21 04/24/21 04/24/21 Range/Units 15:07 16:25 20:14 Sodium (137-145) mmol/L Potassium 5.2 H (3.5-5.1) mmol/L Carbon Dioxide (22-30) mmol/L BUN (7-17) mg/dL Creatinine (0.52-1.04) mg/dL Glucose (74-99) mg/dL POC Glucose (mg/dL) 130 H 180 H (75-99) mg/dL Assessment and Plan Assessment: Infected extensive left calf wound with surrounding cellulitis. Patient also has a black eschar wound on the left leg heal. Status post debridement. Wound cultures growing presented to MRSA and gram-negative bacilli. Acute kidney injury due to ATN from infection and also vancomycin toxicity. Creatinine level went up to 3.88. Hyperkalemia secondary to acute kidney injury Diabetes mellitus2 Hypertension History of cardiomyopathy Plan: This is a pleasant 81 years old female who presents with infected left leg wound and cellulitis. Patient also has a black eschar wound on the left leg heal Patient was on vancomycin and cefazolin.. Infectious disease team is following. Vancomycin has been discontinued due to acute kidney injury. Nephrology was consulted. Patient was given D50 and regular insulin IV 10 units due to hyperkalemia. Repeat potassium level. Labs and medication were reviewed.. Continue with symptomatic treatment. Monitor lytes and vitals. DVT and GI prophylaxis. DVT prophylaxis: Subcutaneous heparin GI Prophylaxis: Pepcid Time with Patient: Greater than 30
--- NOTE | 2021-04-25 09:56 | XR ---
EXAMINATION TYPE: XR chest 1V DATE OF EXAM: 04/25/2021 COMPARISON: 03/16/2021 HISTORY: Shortness of breath TECHNIQUE: Single frontal view of the chest is obtained. FINDINGS: Heart is enlarged and there is postoperative change. There is a cardiac device. Atheroscle rotic change aorta. Bilateral lower lobe infiltrate and small effusion. No overt failure. IMPRESSION: Cardiomegaly with bilateral infiltrate and small effusion.
[2021-04-25 12:08] LABS: Glucose,Whole Blood 172 mg/dL (75-99)
[2021-04-25] MEDS: SODIUM BICARBONATE TAB 650 MG TAB PO SCH ×2 (13:48→21:58)
[2021-04-25] MEDS: SODIUM CHLORIDE 0.9% 1,000 ML IV SCH (13:48)
[2021-04-25] MEDS: COLLAGENASE 250 UNIT/GM OINTMENT 30 GM TUBE TOPICAL SCH (13:49)
[2021-04-25 17:05] LABS: Glucose,Whole Blood 167 mg/dL (75-99)
[2021-04-25] MEDS: ATORVASTATIN 20 MG TAB PO SCH (19:45)
[2021-04-25 20:36] LABS: Glucose,Whole Blood 170 mg/dL (75-99)
[2021-04-25] MEDS: DONEPEZIL 10 MG TAB PO SCH (21:58)
--- NOTE | 2021-04-25 22:17 | PN ---
PROGRESS NOTE DATE OF SERVICE: 04/25/2021 REASON FOR FOLLOWUP: Left leg infected wound with MRSA and Pseudomonas. INTERVAL HISTORY: The patient is afebrile. The patient is breathing comfortably. Denies having any chest pain, shortness of breath or cough. No abdominal pain or any worsening pain to the left leg wound area. PHYSICAL EXAMINATION: Her blood pressure is 122/65 with a pulse of 76, temperature 97.6. She is 97% on room air. General description is description is an elderly female up in the chair in no distress. Respiratory system: Unlabored breathing. Clear to auscultation anteriorly. Heart S1, S2. Regular rate and rhythm. Abdomen soft, no tenderness. Left leg is currently dressed. No obvious drainage on the dressing. LABS: Creatinine 3.51. Vancomycin level 26.3. DIAGNOSTIC IMPRESSION AND PLAN: Patient with left leg wound infection with MRSA and Pseudomonas. Unfortunately, the patient is developing nephrotoxicity, more likely from the vancomycin, which has been discontinued. Daptomycin will be added in the morning. Continue Fortaz. Local care to continue with wound V.A.C. Family at the bedside. Questions were answered. MMODL / IJN: [id number] /
[2021-04-26 04:45] LABS: Appearance,Urine Clear (Clear); Bacteria,Urine Rare /hpf; Bilirubin,Urine Negative (Negative); Blood,Urine Trace (Negative); Color,Urine Light Yellow; Glucose,Urine (UA) Negative (Negative); Ketones,Urine Negative (Negative); Leukocyte Esterase,Urine Negative (Negative); Nitrite,Urine Negative (Negative); Protein,Urine 1+ (Negative); RBC,Urine 3 /hpf (0-5); Specific Gravity,Urine 1.014 (1.001-1.035); Urobilinogen,Urine <2.0 mg/dL (<2.0); WBC,Urine 2 /hpf (0-5)
[2021-04-26] MEDS: SODIUM CHLORIDE 0.9% 1,000 ML IV SCH (05:29)
[2021-04-26 06:47] LABS: Calcium 9.4 mg/dL (8.4-10.2); Magnesium 2.1 mg/dL (1.6-2.3)
[2021-04-26 07:20] LABS: Glucose,Whole Blood 109 mg/dL (75-99)
[2021-04-26] MEDS: INSULIN ASPART (NovoLOG) 100 UNIT/ML VIAL SQ SCH ×4 (07:27→20:43)
[2021-04-26] MEDS: HEPARIN SODIUM,PORCINE/PF 5,000 UNIT/0.5 ML SYRINGE SQ SCH ×2 (08:21→20:46)
[2021-04-26] MEDS: CLOPIDOGREL 75 MG TAB PO SCH (08:22)
[2021-04-26] MEDS: ASPIRIN 81 MG PO SCH (08:22)
[2021-04-26] MEDS: carvediloL 6.25 MG TAB PO SCH ×2 (08:22→20:46)
[2021-04-26] MEDS: FAMOTIDINE 20 MG TAB PO SCH (08:22)
[2021-04-26] MEDS: MAGNESIUM OXIDE 400 MG TAB PO SCH (08:22)
[2021-04-26] MEDS: glipiZIDE 5 MG TAB PO SCH (08:22)
[2021-04-26] MEDS: SODIUM BICARBONATE TAB 650 MG TAB PO SCH ×2 (08:22→20:46)
[2021-04-26] MEDS: ISOSORBIDE MONONITRATE ER 30 MG TAB.ER.24H PO SCH (08:22)
[2021-04-26] MEDS: COLLAGENASE 250 UNIT/GM OINTMENT 30 GM TUBE TOPICAL SCH (08:23)
[2021-04-26] MEDS ORDERED: FUROSEMIDE 10 MG/ML 4 ML VIAL IV STA (09:57)
--- NOTE | 2021-04-26 09:57 | P.PN ---
Subjective Patient is seen in follow for acute kidney injury. Renal function proving. Has a Gregorio catheter. Nonoliguric. No vomiting. No active complaints. Vital signs are stable. General: The patient appeared well nourished and normally developed. HEENT: Head exam is unremarkable. LUNGS: Breath sounds decreased. HEART: Rate and Rhythm are regular. ABDOMEN: Soft, no distention. EXTREMITITES: Trace edema. No drainage. Objective - Vital Signs Vital signs: Vital Signs Temp 97.6 F 04/26/21 02:00 Pulse 60 04/26/21 02:00 Resp 16 04/26/21 02:00 BP 113/57 04/26/21 02:00 Pulse Ox 97 04/26/21 02:00 Intake & Output 04/25/21 04/26/21 04/26/21 18:59 06:59 18:59 Intake Total 177 Output Total 1480 Balance -1303 Intake: Oral 177 Output: Urine 1480 Other: Voiding Method Indwelling Catheter # Voids 4 1,200 - Labs CBC & Chem 7: 04/24/21 07:56 04/26/21 06:09 Labs: Abnormal Lab Results - Last 24 Hours (Table) 04/25/21 04/25/21 04/25/21 Range/Units 12:06 17:04 20:34 Sodium (137-145) mmol/L Chloride (98-107) mmol/L BUN (7-17) mg/dL Creatinine (0.52-1.04) mg/dL POC Glucose (mg/dL) 172 H 167 H 170 H (75-99) mg/dL Urine Protein (Negative) Urine Blood (Negative) Urine Bacteria (None) /hpf 04/26/21 04/26/21 04/26/21 Range/Units 01:20 06:09 07:18 Sodium 132 L (137-145) mmol/L Chloride 95 L (98-107) mmol/L BUN 79 H (7-17) mg/dL Creatinine 2.88 H (0.52-1.04) mg/dL POC Glucose (mg/dL) 109 H (75-99) mg/dL Urine Protein 1+ H (Negative) Urine Blood Trace H (Negative) Urine Bacteria Rare H (None) /hpf Microbiology - Last 24 Hours (Table) 04/20/21 12:00 Gram Stain - Final Leg - Left Wound Culture - Final Methicillin resist S. aureus Stenotrophomonas maltophilia Assessment and Plan Plan: Assessment: 1. Acute kidney injury secondary to ATN secondary to infection and vancomycin toxicity. Vancomycin level peaked at 29 this admission on 04/24/2021 - 26.3 on April 25. Baseline creatinine near 1 and peaked at 3.88 on April 24 - 3.53 today. No hydronephrosis noted on kidney ultrasound. 2. Hyperkalemia secondary to acute kidney injury, metabolic acidosis, losartan potassium supplementation and spironolactone. Better. 3. Metabolic acidosis secondary to acute kidney injury. Improved. On oral bicarb. 4. Left lower extremity wound status post debridement and wound VAC placement. Culture positive for pseudomonas and MRSA. On antibiotics. 5. Diabetes mellitus. 6. Benign hypertension. Controlled. 7. Hyponatremia secondary to acute kidney injury. Better. Plan: Hep-Lock IV fluids. Repeat Lasix 40 mg IV once today. 1200 mL fluid restriction. Encouraged oral intake. Stopped losartan, potassium supplementation and spironolactone. Strict I's and O's.
--- NOTE | 2021-04-26 10:24 | P.ARTDOP ---
Arterial Doppler LOWER EXTREMITY ARTERIAL DOPPLER: DATE OF SERVICE: 04/19/2021 Reason for study: Ulcer left foot and calf. Doppler waveforms: Multiphasic throughout on the right. Multiphasic at the left femoral and atypical below with's severely compromised. Pulse volume recording: Digital waveform. Pressure gradients: Only below the knee on the right and above the knee on the left.. Ankle-brachial indices: 0.79 on the right and 0.75 on the left. Toe brachial indices: 0.4 on the right on the right, [] on the left Impression: Mild right fem-pop disease. Moderate left fem-pop disease. Perfusion on the right appears adequate for healing. Perfusion on the left appears marginal. Vascular specialty assessment recommended. Incidental note: Irregular amplitude and rate suggests the possibility of arrhythmia..
[2021-04-26] MEDS: ONDANSETRON 4 MG/2 ML VIAL IVP PRN (11:19)
[2021-04-26] MEDS: HYDROcodone/APAP 5-325MG 1 EACH TAB PO PRN ×2 (11:25→20:46)
[2021-04-26 12:09] LABS: Glucose,Whole Blood 150 mg/dL (75-99)
[2021-04-26] MEDS ORDERED: LIDOCAINE 1% INJ 10MG/ML (20 ML MDV) SQ ONE (13:10)
--- NOTE | 2021-04-26 13:57 | IR ---
PICC LINE PLACEMENT: HISTORY: Infection requiring long-term antibiotic therapy PROCEDURE: Ultrasound and fluoroscopic guidance of PICC line placement. COMPLICATIONS: None ANESTHESIA: 1. 1% Lidocaine locally. FINDINGS/TECHNIQUE: The procedure was explained to the patient. The risks, complications, benefits and alternatives were discussed and any questions were answered. Informed consent was obtained. The patient was placed supine on the fluoroscopic table and prepped and draped in the usual sterile fash ion. Utilizing a 21 gauge needle and sonographic and fluoroscopic guidance, access in the right bas ilic vein was achieved and there is placement of a 0.018 guidewire. The vein is patent. A 4-F sheat h was placed over the guidewire. The guidewire and dilator were removed and a 4-F. PICC line was saleem taylor through the sheath with the tip at the level of the SVC. The sheath was removed, the catheter wa s flushed and sutured into position. The patient was stable throughout the procedure and remained st able upon discharge from the Department of Radiology. The vein puncture was patent under ultrasound. A broussard scale image was obtained to document patency of the vein punctured. All elements of the maximal barrier technique were utilized. FLUOROSCOPY TIME: 0.1 minutes and one image submitted IMPRESSION: Successful PICC line placement under ultrasound and fluoroscopic guidance.
[2021-04-26 16:52] LABS: Glucose,Whole Blood 126 mg/dL (75-99)
--- NOTE | 2021-04-26 17:34 | PN ---
PROGRESS NOTE DATE OF SERVICE: 04/26/2021 REASON FOR FOLLOWUP: Left leg infected wound secondary to MRSA and pseudomonas. INTERVAL HISTORY: The patient is afebrile, has been complaining of some nausea. No chest pain, shortness of breath or cough. No abdominal pain or diarrhea. PHYSICAL EXAMINATION: Blood pressure 102/66, pulse 64, temperature 98.5. He is 96% on room air. General description is an elderly male lying in bed in no distress. Respiratory system: Unlabored breathing. Clear to auscultation anteriorly. Heart S1, S2. Regular rate and rhythm. Abdomen soft, no tenderness. Left leg is currently covered with a wound V.A.C. LABS: BUN of 79, creatinine 2.88. DIAGNOSTIC IMPRESSION AND PLAN: Patient with left leg infected wound, status post debridement. Culture with Stenotrophomonas and MRSA. Superficial cultures were positive for Pseudomonas and . We will add Levaquin to cover for the Stenotrophomonas. Antibiotic adjusted to daptomycin to cover for the Pseudomonas and monitor clinical course closely. MMODL / IJN: [id number] /
[2021-04-26] MEDS: LEVOFLOXACIN 750 MG TAB PO SCH (18:07)
[2021-04-26 20:39] LABS: Glucose,Whole Blood 121 mg/dL (75-99)
[2021-04-26] MEDS: DONEPEZIL 10 MG TAB PO SCH (20:46)
--- NOTE | 2021-04-26 23:43 | P.PN ---
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 Patient understood bedside stated that she has that insulin for about 2 months where she had bilateral leg swelling, dictated by wounds but in her left leg did not heal. Over the last 2 days he starts to become more painful, with some foul-smelling discharge so decided to come to emergency room Vitas looks stable and patient is afebrile Labs reviewed she has unremarkable CBC. BMP showing mild hyponatremia with sodium 1:30. Rest of BMP and liver enzymes are unremarkable. Creatinine kinase less than 20 None detected. She received normal saline and Zosyn in the emergency room 04/18/2021 Patient is currently sitting in the chair. Left leg wound is wrapped. Still having purulent base. Patient has been afebrile. Pain is controlled fairly. On IV antibiotics and ID service is on board. Deep wound cultures were sent. Denied any chest pain or shortness of breath. No nausea vomiting or abdominal pain or diarrhea. Patient is currently on Unasyn and vancomycin. No headache or dizziness or lightheadedness. Discussed with her daughter at bedside. 04/19/2021 Patient is currently sitting in the chair. Complains of pain at the wound site on the left lower extremity. Vascular surgery has seen the patient and is planning for debridement tomorrow. Anticoagulation and Plavix is on hold. Patient is being current on antibiotics in the form of Unasyn and vancomycin. ID and vascular surgery is on board. Patient has been afebrile. No leukocytosis currently. Current on pain management. No chest pain or shortness breath. Patient is currently sitting in a chair. Still having left leg pain with weightbearing. Improved compared to yesterday. Patient is scheduled for wound debridement today. Continued on IV antibiotics. Follow-up the wound cultures. Patient has been afebrile. Tolerating oral diet. No nausea vomiting or abdominal pain or diarrhea. 04/21/2021 Patient is status post left lower extremity wound debridement and wound VAC saleem cement. Follow-up the wound cultures. Patient is on antibiotics as per ID recommendations. Patient is afebrile. Left leg pain is better. No headache or dizziness or lightheadedness. No fever no chills. No nausea vomiting or abdominal pain. 04/22/2021 Patient is currently sitting in the chair. Awake alert and oriented 3. Left leg swelling is better. Wound cultures are growing presumptive MRSA. Currently on vancomycin and cefazolin as per ID recommendations. Blood pressure is stable. Continue with insulin sliding scale. Pain management and patient has been afebrile. No nausea vomiting or abdominal pain or diarrhea. Anticipate discharged with final antibiotic recommendations. 04/23/2021 Patient is currently sitting in the chair. Still having left leg pain with weightbearing. Wound VAC in place. Status post debridement. Wound cultures are growing presented to MRSA and gram-negative bacilli. Currently on vancomycin and cefazolin. ID is on board. Awaiting final culture report and possible IV antibiotics as an outpatient. Patient may need rehab for IV antibiotics. Patient is afebrile. No chest pain or shortness of breath. No nausea vomiting or abdominal pain or diarrhea. No dysuria or hematuria. Encourage oral intake. Patient does complain of nausea today. 04/24/2021 Patient is currently sitting in the chair. Denied any complaints of chest pain or shortness of breath. She complains of leg pain. Status post debridement and wound VAC placement. Wound cultures are growing presumptive to MRSA and gram-negative bacilli. Otherwise patient does have decreased urine output and renal function worsened with creatinine level went up to 3.88 this morning. Potassium 6.6. Nephrology was consulted. He is on board. Antibiotics changed to daptomycin. Patient has been afebrile. No nausea vomiting or abdominal pain or diarrhea. Tolerating oral diet. 04/25/2021 Patient is currently sitting in the bed. Feels better today. Still complains of nausea. Tolerating oral diet slowly. Renal function improving with creatinine level 3.53 today. Patient is being continued on IV antibiotics with daptomycin and ceftazidime as per ID recommendations. Patient has been afebrile. Left leg wound with wound care. Wound VAC in place. Patient has been afebrile. No fever no chills. No headache or dizziness or lightheadedness. Current medications reviewed. Objective - Vital Signs Vital signs: Vital Signs Temp 97.5 F L 04/25/21 09:08 Pulse 80 04/25/21 09:08 Resp 18 04/25/21 09:08 BP 136/78 04/25/21 09:08 Pulse Ox 100 04/25/21 09:08 Intake & Output 04/24/21 04/25/21 04/25/21 18:59 06:59 18:59 Intake Total 1315 500 Output Total 2400 Balance 1315 -1900 Intake: Intake, IV Titration 1075 Amount Dextrose 5% in Water 1, 375 000 ml @ 75 mls/hr IV . [id number] CHERISE with Sodium Bicarb (1 Meq/ml) 150 ml Rx#:[id number] Sodium Chloride 0.9% 1, 700 000 ml @ 100 mls/hr IV . Q10H CHERISE Rx#:[id number] Oral 240 500 Output: Urine 2400 Other: Voiding Method Bedside Commode Indwelling Catheter # Voids 1 # Bowel Movements 1 - Exam GENERAL: The patient is alert and oriented x3, not in any acute distress. Well developed, well nourished. HEENT: Pupils are round and equally reacting to light. EOMI. No scleral icterus. No conjunctival pallor. Normocephalic, atraumatic. No pharyngeal erythema. No thyromegaly. CARDIOVASCULAR: S1 and S2 present. No murmurs, rubs, or gallops. PULMONARY: Chest is clear to auscultation, no wheezing or crackles. ABDOMEN: Soft, nontender, nondistended, normoactive bowel sounds. No palpable organomegaly. MUSCULOSKELETAL: No joint swelling or deformity. -EXTREMITIES: No cyanosis, clubbing, or pedal edema. Left leg wound behind the lower part of the leg about 3 inches in diameter with surrounding cellulitis . wound VAC in place. NEUROLOGICAL: Gross neurological examination did not reveal any focal deficits. SKIN: No rashes. No petechiae - Labs CBC & Chem 7: 04/24/21 07:56 04/26/21 06:09 Labs: Abnormal Lab Results - Last 24 Hours (Table) 04/24/21 04/24/21 04/24/21 Range/Units 09:59 11:48 15:07 Sodium (137-145) mmol/L Potassium 5.2 H (3.5-5.1) mmol/L Chloride (98-107) mmol/L Carbon Dioxide (22-30) mmol/L BUN (7-17) mg/dL Creatinine (0.52-1.04) mg/dL Glucose (74-99) mg/dL POC Glucose (mg/dL) 194 H 215 H (75-99) mg/dL 04/24/21 04/24/21 04/25/21 Range/Units 16:25 20:14 05:15 Sodium 128 L (137-145) mmol/L Potassium 5.2 H (3.5-5.1) mmol/L Chloride 96 L (98-107) mmol/L Carbon Dioxide 21 L (22-30) mmol/L BUN 82 H (7-17) mg/dL Creatinine 3.51 H (0.52-1.04) mg/dL Glucose 188 H (74-99) mg/dL POC Glucose (mg/dL) 130 H 180 H (75-99) mg/dL 04/25/21 Range/Units 07:44 Sodium (137-145) mmol/L Potassium (3.5-5.1) mmol/L Chloride (98-107) mmol/L Carbon Dioxide (22-30) mmol/L BUN (7-17) mg/dL Creatinine (0.52-1.04) mg/dL Glucose (74-99) mg/dL POC Glucose (mg/dL) 202 H (75-99) mg/dL Microbiology - Last 24 Hours (Table) 04/20/21 12:00 Anaerobic Culture - Final Leg - Left Assessment and Plan Assessment: Infected extensive left calf wound with surrounding cellulitis. Patient also has a black eschar wound on the left leg heal. Status post debridement. Wound cultures growing presented to MRSA and gram-negative bacilli. Acute kidney injury due to ATN from infection and also vancomycin toxicity. Creatinine level went up to 3.88-->3.5 today. Hyperkalemia secondary to acute kidney injury, improved Diabetes mellitus2 Hypertension History of cardiomyopathy Plan: This is a pleasant 81 years old female who presents with infected left leg wound and cellulitis. Patient also has a black eschar wound on the left leg heal Patient was on vancomycin and cefazolin.. Infectious disease team is following. Vancomycin has been discontinued due to acute kidney injury. Nephrology was consulted. Patient was on bicarb drip currently changed to by mouth. Follow-up renal function closely. Labs and medication were reviewed.. Continue with symptomatic treatment. Monitor lytes and vitals. DVT and GI prophylaxis. DVT prophylaxis: Subcutaneous heparin GI Prophylaxis: Pepcid Time with Patient: Greater than 30
--- NOTE | 2021-04-26 23:46 | P.PN ---
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 Patient understood bedside stated that she has that insulin for about 2 months where she had bilateral leg swelling, dictated by wounds but in her left leg did not heal. Over the last 2 days he starts to become more painful, with some foul-smelling discharge so decided to come to emergency room Vitas looks stable and patient is afebrile Labs reviewed she has unremarkable CBC. BMP showing mild hyponatremia with sodium 1:30. Rest of BMP and liver enzymes are unremarkable. Creatinine kinase less than 20 None detected. She received normal saline and Zosyn in the emergency room 04/18/2021 Patient is currently sitting in the chair. Left leg wound is wrapped. Still having purulent base. Patient has been afebrile. Pain is controlled fairly. On IV antibiotics and ID service is on board. Deep wound cultures were sent. Denied any chest pain or shortness of breath. No nausea vomiting or abdominal pain or diarrhea. Patient is currently on Unasyn and vancomycin. No headache or dizziness or lightheadedness. Discussed with her daughter at bedside. 04/19/2021 Patient is currently sitting in the chair. Complains of pain at the wound site on the left lower extremity. Vascular surgery has seen the patient and is planning for debridement tomorrow. Anticoagulation and Plavix is on hold. Patient is being current on antibiotics in the form of Unasyn and vancomycin. ID and vascular surgery is on board. Patient has been afebrile. No leukocytosis currently. Current on pain management. No chest pain or shortness breath. Patient is currently sitting in a chair. Still having left leg pain with weightbearing. Improved compared to yesterday. Patient is scheduled for wound debridement today. Continued on IV antibiotics. Follow-up the wound cultures. Patient has been afebrile. Tolerating oral diet. No nausea vomiting or abdominal pain or diarrhea. 04/21/2021 Patient is status post left lower extremity wound debridement and wound VAC saleem cement. Follow-up the wound cultures. Patient is on antibiotics as per ID recommendations. Patient is afebrile. Left leg pain is better. No headache or dizziness or lightheadedness. No fever no chills. No nausea vomiting or abdominal pain. 04/22/2021 Patient is currently sitting in the chair. Awake alert and oriented 3. Left leg swelling is better. Wound cultures are growing presumptive MRSA. Currently on vancomycin and cefazolin as per ID recommendations. Blood pressure is stable. Continue with insulin sliding scale. Pain management and patient has been afebrile. No nausea vomiting or abdominal pain or diarrhea. Anticipate discharged with final antibiotic recommendations. 04/23/2021 Patient is currently sitting in the chair. Still having left leg pain with weightbearing. Wound VAC in place. Status post debridement. Wound cultures are growing presented to MRSA and gram-negative bacilli. Currently on vancomycin and cefazolin. ID is on board. Awaiting final culture report and possible IV antibiotics as an outpatient. Patient may need rehab for IV antibiotics. Patient is afebrile. No chest pain or shortness of breath. No nausea vomiting or abdominal pain or diarrhea. No dysuria or hematuria. Encourage oral intake. Patient does complain of nausea today. 04/24/2021 Patient is currently sitting in the chair. Denied any complaints of chest pain or shortness of breath. She complains of leg pain. Status post debridement and wound VAC placement. Wound cultures are growing presumptive to MRSA and gram-negative bacilli. Otherwise patient does have decreased urine output and renal function worsened with creatinine level went up to 3.88 this morning. Potassium 6.6. Nephrology was consulted. He is on board. Antibiotics changed to daptomycin. Patient has been afebrile. No nausea vomiting or abdominal pain or diarrhea. Tolerating oral diet. 04/25/2021 Patient is currently sitting in the bed. Feels better today. Still complains of nausea. Tolerating oral diet slowly. Renal function improving with creatinine level 3.53 today. Patient is being continued on IV antibiotics with daptomycin and ceftazidime as per ID recommendations. Patient has been afebrile. Left leg wound with wound care. Wound VAC in place. Patient has been afebrile. No fever no chills. No headache or dizziness or lightheadedness. 04/26/2021 Patient is complaining of nausea today. Not able to eat well. No complaints of headache or dizziness or lightheadedness. Patient is being current antibiotics no cough daptomycin and Fortaz. Patient is making adequate urine output. Renal function is improving with creatinine level 2.88 today. Nephrology is on board. Laboratory showed sodium 132 potassium 4.0 chloride 95 bicarb is 27. Blood sugar is controlled. Patient had arterial duplex scan was done showed mild right femoropopliteal disease. Perfusion on the left appears marginal. Irregular amplitude and rate was noted with Doppler study. EKG was ordered to rule out arrhythmia. Current medications reviewed. Objective - Vital Signs Vital signs: Vital Signs Temp 98.2 F 04/26/21 20:00 Pulse 67 04/26/21 20:00 Resp 18 04/26/21 20:00 BP 127/67 04/26/21 20:00 Pulse Ox 97 04/26/21 20:00 Intake & Output 04/26/21 04/26/21 04/27/21 06:59 18:59 06:59 Other: Voiding Method Indwelling Catheter Indwelling Catheter Indwelling Catheter # Voids 1,200 # Bowel Movements 2 - Exam GENERAL: The patient is alert and oriented x3, not in any acute distress. Well developed, well nourished. HEENT: Pupils are round and equally reacting to light. EOMI. No scleral icterus. No conjunctival pallor. Normocephalic, atraumatic. No pharyngeal erythema. No thyromegaly. CARDIOVASCULAR: S1 and S2 present. No murmurs, rubs, or gallops. PULMONARY: Chest is clear to auscultation, no wheezing or crackles. ABDOMEN: Soft, nontender, nondistended, normoactive bowel sounds. No palpable organomegaly. MUSCULOSKELETAL: No joint swelling or deformity. -EXTREMITIES: No cyanosis, clubbing, or pedal edema. Left leg wound behind the lower part of the leg about 3 inches in diameter with surrounding cellulitis . wound VAC in place. NEUROLOGICAL: Gross neurological examination did not reveal any focal deficits. SKIN: No rashes. No petechiae - Labs CBC & Chem 7: 04/24/21 07:56 04/26/21 06:09 Labs: Abnormal Lab Results - Last 24 Hours (Table) 04/26/21 04/26/21 04/26/21 Range/Units 01:20 06:09 07:18 Sodium 132 L (137-145) mmol/L Chloride 95 L (98-107) mmol/L BUN 79 H (7-17) mg/dL Creatinine 2.88 H (0.52-1.04) mg/dL POC Glucose (mg/dL) 109 H (75-99) mg/dL Urine Protein 1+ H (Negative) Urine Blood Trace H (Negative) Urine Bacteria Rare H (None) /hpf 04/26/21 04/26/21 04/26/21 Range/Units 12:07 16:51 20:37 Sodium (137-145) mmol/L Chloride (98-107) mmol/L BUN (7-17) mg/dL Creatinine (0.52-1.04) mg/dL POC Glucose (mg/dL) 150 H 126 H 121 H (75-99) mg/dL Urine Protein (Negative) Urine Blood (Negative) Urine Bacteria (None) /hpf Microbiology - Last 24 Hours (Table) 04/20/21 12:00 Gram Stain - Final Leg - Left Wound Culture - Final Methicillin resist S. aureus Stenotrophomonas maltophilia Assessment and Plan Assessment: Infected extensive left calf wound with surrounding cellulitis. Patient also has a black eschar wound on the left leg heal. Status post debridement. Wound cultures growing presented to MRSA and gram-negative bacilli. Acute kidney injury due to ATN from infection and also vancomycin toxicity. Creatinine level went up to 3.88-->3.5 today. Hyperkalemia secondary to acute kidney injury, improved Diabetes mellitus2 Hypertension History of cardiomyopathy Plan: This is a pleasant 81 years old female who presents with infected left leg wound and cellulitis. Patient also has a black eschar wound on the left leg heal Patient was on vancomycin and cefazolin.. Infectious disease team is following. Vancomycin has been discontinued due to acute kidney injury. Nephrology was consulted. Patient was on bicarb drip currently changed to by mouth. Follow-up renal function closely. Labs and medication were reviewed.. Continue with symptomatic treatment. Monitor lytes and vitals. DVT and GI prophylaxis. DVT prophylaxis: Subcutaneous heparin GI Prophylaxis: Pepcid Time with Patient: Greater than 30
[2021-04-27] MEDS: HYDROcodone/APAP 5-325MG 1 EACH TAB PO PRN ×2 (00:55→08:23)
[2021-04-27] MEDS: ONDANSETRON 4 MG/2 ML VIAL IVP PRN ×2 (00:57→08:25)
[2021-04-27 06:19] LABS: Basophils % (A) 0 %; Eosinophils % (A) 0 %; HGB 11.5 gm/dL (11.4-16.0); Lymphocytes % (A) 17 %; MCH 30.4 pg (25.0-35.0); MCHC 32.8 g/dL (31.0-37.0); MCV 92.9 fL (80.0-100.0); Mean Platelet Volume 8.8; Monocytes # (A) 0.3 k/uL (0-1.0); Monocytes % (A) 5 %; Neutrophils # (A) 4.3 k/uL (1.3-7.7); Neutrophils % (A) 77 %; Platelet Count 162 k/uL (150-450); RBC 3.76 m/uL (3.80-5.40); RDW 15.1 % (11.5-15.5); WBC 5.6 k/uL (3.8-10.6)
[2021-04-27 06:36] LABS: Calcium 8.9 mg/dL (8.4-10.2); Magnesium 1.9 mg/dL (1.6-2.3); Potassium 3.8 mmol/L (3.5-5.1)
[2021-04-27 07:25] LABS: Glucose,Whole Blood 134 mg/dL (75-99)
[2021-04-27] MEDS: INSULIN ASPART (NovoLOG) 100 UNIT/ML VIAL SQ SCH ×4 (08:22→22:02)
[2021-04-27] MEDS: ASPIRIN 81 MG PO SCH (08:23)
[2021-04-27] MEDS: SODIUM BICARBONATE TAB 650 MG TAB PO SCH ×2 (08:25→22:05)
[2021-04-27] MEDS: FAMOTIDINE 20 MG TAB PO SCH (08:25)
[2021-04-27] MEDS: ISOSORBIDE MONONITRATE ER 30 MG TAB.ER.24H PO SCH (08:25)
[2021-04-27] MEDS: MAGNESIUM OXIDE 400 MG TAB PO SCH (08:25)
[2021-04-27] MEDS: CLOPIDOGREL 75 MG TAB PO SCH (08:25)
[2021-04-27] MEDS: HEPARIN SODIUM,PORCINE/PF 5,000 UNIT/0.5 ML SYRINGE SQ SCH ×2 (08:25→22:05)
[2021-04-27] MEDS: glipiZIDE 5 MG TAB PO SCH (08:25)
[2021-04-27] MEDS: carvediloL 6.25 MG TAB PO SCH ×2 (08:25→22:05)
[2021-04-27] MEDS: COLLAGENASE 250 UNIT/GM OINTMENT 30 GM TUBE TOPICAL SCH (08:31)
--- NOTE | 2021-04-27 09:22 | P.PN ---
Subjective Patient is seen in follow for acute kidney injury. Renal function improving. Has a Gregorio catheter. Nonoliguric. No vomiting. Feels nauseous again. Vital signs are stable. General: The patient appeared well nourished and normally developed. HEENT: Head exam is unremarkable. LUNGS: Breath sounds decreased. HEART: Rate and Rhythm are regular. ABDOMEN: Soft, no distention. EXTREMITITES: Trace edema. No drainage. Wound VAC noted. Objective - Vital Signs Vital signs: Vital Signs Temp 97.6 F 04/27/21 08:00 Pulse 64 04/27/21 08:00 Resp 18 04/27/21 08:00 BP 137/77 04/27/21 08:00 Pulse Ox 99 04/27/21 08:00 Intake & Output 04/26/21 04/27/21 04/27/21 18:59 06:59 18:59 Intake Total 460 Output Total 800 Balance -340 Intake: Intake, IV Titration 60 Amount Sodium Chloride 0.9% 1, 60 000 ml @ 50 mls/hr IV . Q20H [facility] Rx#:[id number] Oral 400 Output: Urine 800 Other: Voiding Method Indwelling Catheter Indwelling Catheter # Bowel Movements 2 - Labs CBC & Chem 7: 04/27/21 05:32 04/27/21 05:32 Labs: Abnormal Lab Results - Last 24 Hours (Table) 04/26/21 04/26/21 04/26/21 Range/Units 12:07 16:51 20:37 RBC (3.80-5.40) m/uL Sodium (137-145) mmol/L Chloride (98-107) mmol/L BUN (7-17) mg/dL Creatinine (0.52-1.04) mg/dL Glucose (74-99) mg/dL POC Glucose (mg/dL) 150 H 126 H 121 H (75-99) mg/dL 04/27/21 04/27/21 04/27/21 Range/Units 05:32 05:32 07:22 RBC 3.76 L (3.80-5.40) m/uL Sodium 129 L (137-145) mmol/L Chloride 94 L (98-107) mmol/L BUN 58 H (7-17) mg/dL Creatinine 2.08 H (0.52-1.04) mg/dL Glucose 122 H (74-99) mg/dL POC Glucose (mg/dL) 134 H (75-99) mg/dL Assessment and Plan Plan: Assessment: 1. Acute kidney injury secondary to ATN secondary to infection and vancomycin toxicity. Vancomycin level peaked at 29 this admission on 04/24/2021 - 26.3 on April 25. Baseline creatinine near 1 and peaked at 3.88 on April 24 - 2.08 today. No hydronephrosis noted on kidney ultrasound. 2. Hyperkalemia secondary to acute kidney injury, metabolic acidosis, losartan potassium supplementation and spironolactone. Resolved. 3. Metabolic acidosis secondary to acute kidney injury. Improved. On oral bicarb. 4. Left lower extremity wound status post debridement and wound VAC placement. Culture positive for pseudomonas and MRSA. On antibiotics. 5. Diabetes mellitus. 6. Benign hypertension. Controlled. 7. Hyponatremia secondary to acute kidney injury. Plan: Status post IV Lasix the last 2 days. Hold today. 1200 mL fluid restriction. Encouraged oral intake. Stopped losartan, potassium supplementation and spironolactone. Repeat labs in the morning.
[2021-04-27 11:05] LABS: Glucose,Whole Blood 132 mg/dL (75-99)
[2021-04-27 16:56] LABS: Glucose,Whole Blood 90 mg/dL (75-99)
[2021-04-27 21:42] LABS: Glucose,Whole Blood 81 mg/dL (75-99)
[2021-04-27] MEDS: DONEPEZIL 10 MG TAB PO SCH (22:05)
--- NOTE | 2021-04-28 00:12 | P.PN ---
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 Patient understood bedside stated that she has that insulin for about 2 months where she had bilateral leg swelling, dictated by wounds but in her left leg did not heal. Over the last 2 days he starts to become more painful, with some foul-smelling discharge so decided to come to emergency room Vitas looks stable and patient is afebrile Labs reviewed she has unremarkable CBC. BMP showing mild hyponatremia with sodium 1:30. Rest of BMP and liver enzymes are unremarkable. Creatinine kinase less than 20 None detected. She received normal saline and Zosyn in the emergency room 04/18/2021 Patient is currently sitting in the chair. Left leg wound is wrapped. Still having purulent base. Patient has been afebrile. Pain is controlled fairly. On IV antibiotics and ID service is on board. Deep wound cultures were sent. Denied any chest pain or shortness of breath. No nausea vomiting or abdominal pain or diarrhea. Patient is currently on Unasyn and vancomycin. No headache or dizziness or lightheadedness. Discussed with her daughter at bedside. 04/19/2021 Patient is currently sitting in the chair. Complains of pain at the wound site on the left lower extremity. Vascular surgery has seen the patient and is planning for debridement tomorrow. Anticoagulation and Plavix is on hold. Patient is being current on antibiotics in the form of Unasyn and vancomycin. ID and vascular surgery is on board. Patient has been afebrile. No leukocytosis currently. Current on pain management. No chest pain or shortness breath. Patient is currently sitting in a chair. Still having left leg pain with weightbearing. Improved compared to yesterday. Patient is scheduled for wound debridement today. Continued on IV antibiotics. Follow-up the wound cultures. Patient has been afebrile. Tolerating oral diet. No nausea vomiting or abdominal pain or diarrhea. 04/21/2021 Patient is status post left lower extremity wound debridement and wound VAC saleem cement. Follow-up the wound cultures. Patient is on antibiotics as per ID recommendations. Patient is afebrile. Left leg pain is better. No headache or dizziness or lightheadedness. No fever no chills. No nausea vomiting or abdominal pain. 04/22/2021 Patient is currently sitting in the chair. Awake alert and oriented 3. Left leg swelling is better. Wound cultures are growing presumptive MRSA. Currently on vancomycin and cefazolin as per ID recommendations. Blood pressure is stable. Continue with insulin sliding scale. Pain management and patient has been afebrile. No nausea vomiting or abdominal pain or diarrhea. Anticipate discharged with final antibiotic recommendations. 04/23/2021 Patient is currently sitting in the chair. Still having left leg pain with weightbearing. Wound VAC in place. Status post debridement. Wound cultures are growing presented to MRSA and gram-negative bacilli. Currently on vancomycin and cefazolin. ID is on board. Awaiting final culture report and possible IV antibiotics as an outpatient. Patient may need rehab for IV antibiotics. Patient is afebrile. No chest pain or shortness of breath. No nausea vomiting or abdominal pain or diarrhea. No dysuria or hematuria. Encourage oral intake. Patient does complain of nausea today. 04/24/2021 Patient is currently sitting in the chair. Denied any complaints of chest pain or shortness of breath. She complains of leg pain. Status post debridement and wound VAC placement. Wound cultures are growing presumptive to MRSA and gram-negative bacilli. Otherwise patient does have decreased urine output and renal function worsened with creatinine level went up to 3.88 this morning. Potassium 6.6. Nephrology was consulted. He is on board. Antibiotics changed to daptomycin. Patient has been afebrile. No nausea vomiting or abdominal pain or diarrhea. Tolerating oral diet. 04/25/2021 Patient is currently sitting in the bed. Feels better today. Still complains of nausea. Tolerating oral diet slowly. Renal function improving with creatinine level 3.53 today. Patient is being continued on IV antibiotics with daptomycin and ceftazidime as per ID recommendations. Patient has been afebrile. Left leg wound with wound care. Wound VAC in place. Patient has been afebrile. No fever no chills. No headache or dizziness or lightheadedness. 04/26/2021 Patient is complaining of nausea today. Not able to eat well. No complaints of headache or dizziness or lightheadedness. Patient is being current antibiotics no cough daptomycin and Fortaz. Patient is making adequate urine output. Renal function is improving with creatinine level 2.88 today. Nephrology is on board. Laboratory showed sodium 132 potassium 4.0 chloride 95 bicarb is 27. Blood sugar is controlled. Patient had arterial duplex scan was done showed mild right femoropopliteal disease. Perfusion on the left appears marginal. Irregular amplitude and rate was noted with Doppler study. EKG was ordered to rule out arrhythmia. 04/27/2021 Patient was admitted to the hospital left lower extremity calf wound status post debridement and deep wound cultures showed MRSA and Pseudomonas. Was on vancomycin. Change daptomycin due to acute kidney injury and possible need toxicity. Patient is currently lying in the bed. Awake alert and oriented. Confused at times. Complains of nausea and unable to tolerate oral diet. Otherwise renal function is improving with creatinine level 2.08. Laboratory showed sodium 128 potassium 3.8 chloride 94 BUN 58 and creatinine 2.08. Nephrology and ID is on board. Patient is being continued daptomycin and Fortaz. Current medications reviewed. Objective - Vital Signs Vital signs: Vital Signs Temp 97.3 F L 04/27/21 13:43 Pulse 61 04/27/21 13:43 Resp 16 04/27/21 13:43 BP 128/69 04/27/21 13:43 Pulse Ox 99 04/27/21 13:43 Intake & Output 04/26/21 04/27/21 04/27/21 18:59 06:59 18:59 Intake Total 460 Output Total 800 1 Balance -340 -1 Intake: Intake, IV Titration 60 Amount Sodium Chloride 0.9% 1, 60 000 ml @ 50 mls/hr IV . Q20H [facility] Rx#:[id number] Oral 400 Output: Urine 800 Stool 1 Other: Voiding Method Indwelling Catheter Indwelling Catheter Indwelling Catheter # Bowel Movements 2 - Exam GENERAL: The patient is alert and oriented x3, not in any acute distress. Well developed, well nourished. HEENT: Pupils are round and equally reacting to light. EOMI. No scleral icterus. No conjunctival pallor. Normocephalic, atraumatic. No pharyngeal erythema. No thyromegaly. CARDIOVASCULAR: S1 and S2 present. No murmurs, rubs, or gallops. PULMONARY: Chest is clear to auscultation, no wheezing or crackles. ABDOMEN: Soft, nontender, nondistended, normoactive bowel sounds. No palpable organomegaly. MUSCULOSKELETAL: No joint swelling or deformity. -EXTREMITIES: No cyanosis, clubbing, or pedal edema. Left leg wound behind the lower part of the leg about 3 inches in diameter with surrounding cellulitis . wound VAC in place. NEUROLOGICAL: Gross neurological examination did not reveal any focal deficits. SKIN: No rashes. No petechiae - Labs CBC & Chem 7: 04/27/21 05:32 04/27/21 05:32 Labs: Abnormal Lab Results - Last 24 Hours (Table) 04/26/21 04/26/21 04/27/21 Range/Units 16:51 20:37 05:32 RBC (3.80-5.40) m/uL Sodium 129 L (137-145) mmol/L Chloride 94 L (98-107) mmol/L BUN 58 H (7-17) mg/dL Creatinine 2.08 H (0.52-1.04) mg/dL Glucose 122 H (74-99) mg/dL POC Glucose (mg/dL) 126 H 121 H (75-99) mg/dL 04/27/21 04/27/21 04/27/21 Range/Units 05:32 07:22 11:03 RBC 3.76 L (3.80-5.40) m/uL Sodium (137-145) mmol/L Chloride (98-107) mmol/L BUN (7-17) mg/dL Creatinine (0.52-1.04) mg/dL Glucose (74-99) mg/dL POC Glucose (mg/dL) 134 H 132 H (75-99) mg/dL Assessment and Plan Assessment: Infected extensive left calf wound with surrounding cellulitis. Patient also has a black eschar wound on the left leg heal. Status post debridement. Wound cultures growing presented to MRSA and Stenotrophomonas. Acute kidney injury due to ATN from infection and also vancomycin toxicity. Creatinine level went up to 3.88-->3.5 --2.08 today. Hyperkalemia secondary to acute kidney injury, improved Diabetes mellitus2 Hypertension History of cardiomyopathy Plan: This is a pleasant 81 years old female who presents with infected left leg wound and cellulitis. Patient also has a black eschar wound on the left leg heal Patient was on vancomycin and cefazolin.. Infectious disease team is following. Vancomycin has been discontinued due to acute kidney injury.Currently on daptomycin and Fortaz. Nephrology is following. Patient was on bicarb drip currently changed to by mouth. Follow-up renal function closely. Labs and medication were reviewed.. Continue with symptomatic treatment. Monit or lytes and vitals. DVT and GI prophylaxis. DVT prophylaxis: Subcutaneous heparin GI Prophylaxis: Pepcid Time with Patient: Greater than 30
--- NOTE | 2021-04-28 00:33 | PN ---
PROGRESS NOTE DATE OF SERVICE: 04/27/2021. REASON FOR FOLLOWUP: Left leg wound infection. INTERVAL HISTORY: The patient is afebrile. She is breathing comfortably. Still complaining of nausea. No vomiting. No chest pain, shortness of breath or cough. No abdominal pain, no diarrhea PHYSICAL EXAMINATION: Blood pressure 122/69 with a pulse of 61, temperature 97.9. She is 99% on room air. General description is an elderly female up in the chair in no distress. Respiratory system: Unlabored breathing, clear to auscultation anteriorly. Heart S1, S2. Regular rate and rhythm. Abdomen soft, no tenderness. Left leg is currently covered with a wound VAC. No redness or drainage. LABS: Hemoglobin is 11.5, white count 5.6, creatinine is 2.08. DIAGNOSTIC IMPRESSION AND PLAN: Patient with left leg wound infection with secondary cellulitis with multiple pathogens. Patient is currently covered with Fortaz, daptomycin and Levaquin. Waiting for the kidney function improve and monitor clinical course closely. MMODL / IJN: [id number] /
[2021-04-28 06:26] LABS: Calcium 8.9 mg/dL (8.4-10.2); Magnesium 1.9 mg/dL (1.6-2.3); Potassium 3.6 mmol/L (3.5-5.1)
[2021-04-28 07:24] LABS: Glucose,Whole Blood 103 mg/dL (75-99)
[2021-04-28] MEDS: INSULIN ASPART (NovoLOG) 100 UNIT/ML VIAL SQ SCH ×4 (08:16→21:22)
[2021-04-28] MEDS: HEPARIN SODIUM,PORCINE/PF 5,000 UNIT/0.5 ML SYRINGE SQ SCH ×2 (08:21→21:23)
[2021-04-28] MEDS: MAGNESIUM OXIDE 400 MG TAB PO SCH (08:22)
[2021-04-28] MEDS: ASPIRIN 81 MG PO SCH (08:22)
[2021-04-28] MEDS: SODIUM BICARBONATE TAB 650 MG TAB PO SCH ×2 (08:22→21:23)
[2021-04-28] MEDS: carvediloL 6.25 MG TAB PO SCH ×2 (08:22→21:22)
[2021-04-28] MEDS: CLOPIDOGREL 75 MG TAB PO SCH (08:22)
[2021-04-28] MEDS: FAMOTIDINE 20 MG/2 ML VIAL IV SCH ×2 (08:22→21:22)
[2021-04-28] MEDS: COLLAGENASE 250 UNIT/GM OINTMENT 30 GM TUBE TOPICAL SCH (08:22)
[2021-04-28] MEDS: glipiZIDE 5 MG TAB PO SCH (08:22)
[2021-04-28] MEDS: ISOSORBIDE MONONITRATE ER 30 MG TAB.ER.24H PO SCH (08:22)
[2021-04-28] MEDS: HYDROcodone/APAP 5-325MG 1 EACH TAB PO PRN ×3 (08:35→21:22)
--- NOTE | 2021-04-28 08:58 | CDI ---
Documentation Clarification Form Date: 04/28/2021 08:15:15 AM From: Elinor Lopez RN, CCDS Admit Date: 04/16/2021 11:05:00 PM Patient Name: Lilia Boateng Visit Number: [id number] Discharge Date: ATTENTION: The Clinical Documentation Specialists (CDI) and [facility] Coding Staff appreciate your assistance in clarifying documentation. Please respond to the clarification below the line at the bottom and electronically sign. The CDI & [facility] Coding staff will review the response and follow-up if needed. Please note: Queries are made part of the Legal Health Record. If you have any questions, please contact the author of this message via ITS. Dr. Angelic Zurita Your patient has the documented diagnosis of unspecified heart failure in the past medical history with ongoing treatment. Additional information regarding the type and acuity of CHF is requested. History/Risk Factors: Coronary Artery Disease, Heart Failure, Cardiomyopathy Diabetes Mellitus, Hypertension Clinical Indicators: 81 year old female present to ED with chronic wound to the left lower extremity. Patient denies any shortness of breath. Lungs clear to auscultation on admission 05/16 VS/Pulse OX: 120/74 89 20 98.4 97 % RA 05/14/21 Echocardiogram Results: Overall left ventricular systolic function is severely impaired with, an ED between 20-25 % Right ventricle is mildly enlarged. 04/25/21Chest x ray: Cardiomegaly with bilateral infiltrate and small effusion Treatment: Stop Bumex, Aldactone (04/17-04/24) Gregorio catheter. Strict I's and O's Lasix 80 MG IV Once 04/24 (per nephrology Lasix 40 MG IV 04/25-04/26 (per nephrology) In your professional opinion, can you please clarify the acuity and type of CHF if known? [ ] Acute Systolic Heart Failure (reduced EF) [ ] Chronic Systolic Heart Failure (reduced EF) [ ] Acute on Chronic Systolic Heart Failure (reduced EF) [ ] Acute Diastolic Heart Failure (preserved EF) [ ] Chronic Diastolic Heart Failure (preserved EF) [ ] Acute on Chronic Diastolic Heart Failure (preserved EF) [ ] Acute Systolic & Diastolic Heart Failure [ ] Chronic Systolic & Diastolic Heart Failure [ ] Acute on Chronic Heart Failure Systolic & Diastolic Heart Failure [ ] Other, please specify [ ] Unable to determine (Template Last Revised: June 2020) Acute on Chronic Systolic Heart Failure [facility]
[2021-04-28] MEDS ORDERED: POTASSIUM CHLORIDE ER 20 MEQ TAB.ER PO STA (09:08)
--- NOTE | 2021-04-28 09:09 | P.PN ---
Subjective Patient is seen in follow for acute kidney injury. Renal function improving. Has a Gregorio catheter. Nonoliguric. No vomiting. Confused this morning. Vital signs are stable. General: The patient appeared well nourished and normally developed. HEENT: Head exam is unremarkable. LUNGS: Breath sounds decreased. HEART: Rate and Rhythm are regular. ABDOMEN: Soft, no distention. EXTREMITITES: Trace edema. No drainage. Wound VAC noted. Objective - Vital Signs Vital signs: Vital Signs Temp 97.7 F 04/28/21 07:26 Pulse 69 04/28/21 07:26 Resp 16 04/28/21 07:26 BP 134/73 04/28/21 07:26 Pulse Ox 98 04/28/21 07:26 Intake & Output 04/27/21 04/28/21 04/28/21 18:59 06:59 18:59 Intake Total 1136 Output Total 401 Balance 735 Intake: Oral 1136 Output: Urine 400 Stool 1 Other: Voiding Method Indwelling Catheter Indwelling Catheter # Bowel Movements 1 - Labs CBC & Chem 7: 04/27/21 05:32 04/28/21 05:31 Labs: Abnormal Lab Results - Last 24 Hours (Table) 04/27/21 04/28/21 04/28/21 Range/Units 11:03 05:31 07:23 Sodium 131 L (137-145) mmol/L Chloride 94 L (98-107) mmol/L BUN 50 H (7-17) mg/dL Creatinine 1.64 H (0.52-1.04) mg/dL POC Glucose (mg/dL) 132 H 103 H (75-99) mg/dL Assessment and Plan Plan: Assessment: 1. Acute kidney injury secondary to ATN secondary to infection and vancomycin toxicity. Vancomycin level peaked at 29 this admission on 04/24/2021 - 26.3 on April 25. Baseline creatinine near 1 and peaked at 3.88 on April 24 - 1.64 today. No hydronephrosis noted on kidney ultrasound. 2. Hyperkalemia secondary to acute kidney injury, metabolic acidosis, losartan potassium supplementation and spironolactone. Resolved. Now slightly hypokalemic. Magnesium normal. 3. Metabolic acidosis secondary to acute kidney injury. Improved. On oral bicarb. 4. Left lower extremity wound status post debridement and wound VAC placement. Culture positive for pseudomonas and MRSA. On antibiotics. 5. Diabetes mellitus. 6. Benign hypertension. Controlled. 7. Hyponatremia secondary to acute kidney injury. Plan: 1200 mL fluid restriction. Encouraged oral intake. Stopped losartan, potassium supplementation and spironolactone. Replace potassium.
--- NOTE | 2021-04-28 10:47 | P.PN ---
Subjective Progress Note Date: 04/28/21 This is a 81-year-old female who we were initially consulted on 04/19/2021 by vascular surgery for debridement of left lower extremity wounds. The patient had sharp excisional debridement of left leg wounds on 05-[address] Gregorio with a wound VAC placement. Primary medicine asked us to see patient again regarding peripheral arterial disease as noted on her arterial study which we initially ordered and previously reviewed. NITISH on right lower extremity 0.79, left lower extremity 0.75. Findings were discussed with both the patient and her daughters at that time, regarding outpatient follow-up with vascular surgery. Apparently the patient had developed acute kidney injury likely secondary to vancomycin, therefore patient has remained in the hospital. Wound VAC remains intact. She has been afebrile. Dressing changes per recommendations from infectious disease has been following. Objective - Vital Signs Vital signs: Vital Signs Temp 97.7 F 04/28/21 07:26 Pulse 69 04/28/21 07:26 Resp 16 04/28/21 07:26 BP 134/73 04/28/21 07:26 Pulse Ox 98 04/28/21 07:26 Intake & Output 04/27/21 04/28/21 04/28/21 18:59 06:59 18:59 Intake Total 1136 Output Total 401 Balance 735 Intake: Oral 1136 Output: Urine 400 Stool 1 Other: Voiding Method Indwelling Catheter Indwelling Catheter # Bowel Movements 1 - Exam General appearance: The patient is alert, oriented, in no acute distress. HET: Head is normocephalic and atraumati Neck: Supple without lymphadenopathy. Trachea midline. Extremities: Left lower extremity with wound vac on calf wound good suction. Dressing clean dry and intact. Neurological: No focal deficits. Strength and sensation are grossly intact. - Labs CBC & Chem 7: 04/27/21 05:32 04/28/21 05:31 Labs: Abnormal Lab Results - Last 24 Hours (Table) 04/27/21 04/28/21 04/28/21 Range/Units 11:03 05:31 07:23 Sodium 131 L (137-145) mmol/L Chloride 94 L (98-107) mmol/L BUN 50 H (7-17) mg/dL Creatinine 1.64 H (0.52-1.04) mg/dL POC Glucose (mg/dL) 132 H 103 H (75-99) mg/dL Assessment and Plan Assessment: 1. Status post debridement of left lower extremity with wound vac placement 2. 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 Pressure ulcer to left heel 3. Diabetes mellitus 4. History of cardiomyopathy 5. History of coronary artery disease on Plavix Plan: 1. Diet as tolerated 2. Continue with wound VAC dressing at current setting change every 3 days 3. Wound care per orders, patient to follow up out patient with wound clinic 4. Antibiotics per recommendations of infectious disease 5. There are no plans for any acute vascular surgical intervention 6. Patient is to follow-up with vascular surgery to discuss any possible revascularization which will be done as an outpatient 7. Patient is cleared for discharge from vascular surgery, we will sign off at this time. The impression and plan of care has been dictated as directed. Dr. Gregorio I performed a history and examination of this patient, discussed the same with the dictator. I agree with the dictator's note ,documented as a scribe. Any additional findings or plans will be noted.
[2021-04-28 11:36] LABS: Glucose,Whole Blood 196 mg/dL (75-99)
--- NOTE | 2021-04-28 11:40 | P.DS ---
Providers Date of admission: 04/16/21 23:05 Attending physician: Rogelio Gonzalez MD Consults: 04/17/21 13:24 Consult Physician Urgent Consulting Provider: Kate Oliver Consult Reason/Comments: Infected left leg wound Do you want consulting provider notified?: Yes 04/17/21 13:31 Consult Physician Routine Consulting Provider: Manish Jennings Consult Reason/Comments: wound lower extremity Do you want consulting provider notified?: Already Contacted 04/24/21 09:19 Consult Physician Routine Consulting Provider: Alex Lieberman Consult Reason/Comments: Acute Kidney injury Do you want consulting provider notified?: Yes, Notify in am 04/28/21 07:49 Consult Physician Urgent Consulting Provider: Camelia Gregorio Consult Reason/Comments: left pop-fem disease on arterial doppler Do you want consulting provider notified?: Yes Primary care physician: [facility] Course: Diagnoses: Infected extensive left calf wound with surrounding cellulitis. Patient also has a black eschar wound on the left leg heal. Status post debridement. Wound cultures growing presented to MRSA and Stenotrophomonas. Acute kidney injury due to ATN from infection and also vancomycin toxicity. Creatinine level went up to 3.88-->3.5 --2.08 today. Hyperkalemia secondary to acute kidney injury, improved Diabetes mellitus2 Hypertension History of cardiomyopathy Dementia Hospital course: Physical is an 81 years old female with past medical history of Diabetes Mellitus, Hypertension, Cardiomyopathy, chronic wound to back of left calf. Also she has a history of dementia Patient presents with nonhealing wounds in her left leg , he was found to have left lower leg wound with surrounding cellulitis. She underwent debridement and wound culture growing MRSA, and Stenotrophomonas. And the superficial wound culture was growing MRSA and pseudomonas. Infectious disease team are following the patient closely initially she was on IV vancomycin but that was switched to daptomycin and ceftazidime and oral Levaquin after she developed acute kidney injury secondary to vancomycin and dehydration. Her creatinine peaked up to 3.8. However with treatment and I will fluid her creatinine start trending down and today is 1.6. Colorist Dyer evaluated the patient closely. Losartan, potassium supplement and Aldactone were held as well. Arterial Doppler showing moderate left femoropopliteal disease. Vascular surgery recommended outpatient evaluation for possible revascularization. On the day of discharge she was keep improving, she is alert and awake, she is somewhat confused related to her history of dementia, on the top of that she's taking [place] for pain control which make her little more confused in view of her kidney injury as well. She denies chest pain or dyspnea. No abdominal pain or diarrhea or vomiting. Her glucose is well controlled on the glipizide 5 mg daily. Her metformin was held due to her renal injury. Continue with insulin sliding scale Patient was cleared for discharge by all consultants including infectious disease team, nephrology, vascular surgery and went team. Problems and management plan were discussed with the patient and he verbalized understanding and acceptance Patient was found stable and can be discharged ECF in guarded prognosis however he needs follow-up as an outpatient. Patient was instructed to follow up with PCP Dr. Mccall within one week and patient agrees Patient was instructed to follow up with vascular surgeon Dr. Gregorio in 2 weeks. With wound center and Dr. Oliver in one week. And with boiling house oiler Dr. Kat in 2-3 wks I called the daughter Miss Irby at [phone] and left a message to call back Physical exam Gen: patient is a awake and alert, no distress CVS: S1-S2, RRR, no murmur Lungs: B/L CTA, no wheezing Abdomen: soft, no distention, no tenderness, positive bowel sounds -Extremity: no leg edema or induration. Left leg wound with surrounding cellulitis, healing. Wound VAC is in place Time spent more than 35 minutes Patient Condition at Discharge: Fair Plan - Discharge Summary Discharge Rx Participant: No New Discharge Prescriptions: New INSULIN ASPART (NovoLOG) [NovoLOG (formulary)] 0 unit SQ ACHS ml carvediloL [Coreg] 6.25 mg PO BID@0900,2100 tab Famotidine [Pepcid] 20 mg PO DAILY #30 tablet Acetaminophen Tab [Tylenol] 650 mg PO Q6HR PRN tab PRN Reason: Mild Pain Or Fever > 100.5 Continue Collagenase [Santyl Ointment] 1 applic TOPICAL Q12H Clopidogrel [Plavix] 75 mg PO DAILY Aspirin EC [Ecotrin Low Dose] 81 mg PO DAILY Donepezil [Aricept] 10 mg PO HS Melatonin 3 mg PO HS PRN tablet PRN Reason: Insomnia Benzocaine/Menthol [Dermoplast Pain Relieving Fate] 1 spray TOPICAL BID PRN PRN Reason: LEFT LEG WOUND PAIN Magnesium Oxide 400 mg PO DAILY Atorvastatin [Lipitor] 20 mg PO HS glipiZIDE [Glucotrol] 5 mg PO DAILY Isosorbide Mononitrate ER [Imdur] 30 mg PO DAILY Ferrous Sulfate [Iron (65 MG Elemental)] 325 mg PO BID Changed HYDROcodone/APAP 5-325MG [[place] 5-325] 1 tab PO Q12HR PRN #6 tab PRN Reason: Pain Discontinued Potassium Chloride ER [K-Dur 10] 10 meq PO DAILY Bumetanide [BUMEX] 1 mg PO BID Spironolactone [Aldactone] 25 mg PO DAILY tab Nystatin 100,000 Unit/gm Powd [Mycostatin Powder] 1 applic TOPICAL BID PRN PRN Reason: INFECTION OF GROIN & BUTTOCKS carvediloL [Coreg] 3.125 mg PO BID Losartan [Cozaar] 50 mg PO DAILY tab ALPRAZolam [Xanax] 0.25 mg PO BID PRN PRN Reason: Anxiety metFORMIN HCL [Glucophage] 500 mg PO BID Discharge Medication List Aspirin EC [Ecotrin Low Dose] 81 mg PO DAILY 03/14/21 [History] Atorvastatin [Lipitor] 20 mg PO HS 03/14/21 [History] Clopidogrel [Plavix] 75 mg PO DAILY 03/14/21 [History] Collagenase [Santyl Ointment] 1 applic TOPICAL Q12H 03/14/21 [History] Donepezil [Aricept] 10 mg PO HS 03/14/21 [History] Isosorbide Mononitrate ER [Imdur] 30 mg PO DAILY 03/14/21 [History] Magnesium Oxide 400 mg PO DAILY 03/14/21 [History] glipiZIDE [Glucotrol] 5 mg PO DAILY 03/14/21 [History] Melatonin 3 mg PO HS PRN tablet 03/20/21 [Rx] Benzocaine/Menthol [Dermoplast Pain Relieving Fate] 1 spray TOPICAL BID PRN 04/16/21 [History] Ferrous Sulfate [Iron (65 MG Elemental)] 325 mg PO BID 04/16/21 [History] Acetaminophen Tab [Tylenol] 650 mg PO Q6HR PRN tab 04/28/21 [Rx] Famotidine [Pepcid] 20 mg PO DAILY #30 tablet 04/28/21 [Rx] HYDROcodone/APAP 5-325MG [[place] 5-325] 1 tab PO Q12HR PRN #6 tab 04/28/21 [Rx] INSULIN ASPART (NovoLOG) [NovoLOG (formulary)] 0 unit SQ ACHS ml 04/28/21 [Rx] carvediloL [Coreg] 6.25 mg PO BID@0900,2100 tab 04/28/21 [Rx] Follow up Appointment(s)/Referral(s): Camelia Gregorio DO [STAFF PHYSICIAN] - 2 Weeks [facility] [NON-STAFF] - 1 Week Armand Menendez DO [Primary Care Provider] - 1-2 days
[2021-04-28] MEDS: ONDANSETRON 4 MG/2 ML VIAL IVP PRN (13:19)
[2021-04-28] MEDS: TRIMETHOBENZAMIDE 100 MG/ML 2 ML VIAL IM PRN ×2 (14:17→20:17)
[2021-04-28] MEDS: HYDROmorphone 0.5 MG/0.5 ML SYRINGE IVP PRN (15:02)
--- NOTE | 2021-04-28 15:03 | XR ---
EXAMINATION TYPE: XR chest 1V portable DATE OF EXAM: 04/28/2021 COMPARISON: 04/25/2021 HISTORY: Shortness of breath, possible aspiration TECHNIQUE: Single frontal view of the chest is obtained. FINDINGS: There is no focal air space opacity, pleural effusion, or pneumothorax seen. There is ed cardiomegaly without overt pulmonary vascular congestion. The osseous structures are intact. There are median sternotomy wires, a 2-lead cardiac pacemaker and a PICC line terminating in the SVC/RA ju nction. IMPRESSION: No acute process.
--- NOTE | 2021-04-28 15:04 | XR ---
KUB. HISTORY: Nausea and vomiting. COMPARISON: None. TECHNIQUE: Single supine AP view the abdomen was obtained. FINDINGS: The lung bases are clear . Bowel gas pattern is nonspecific and there is no evidence of obstruction. There is scoliosis and degenerative disc disease in the lumbar spine. Impression: nonspecific abdomen without evidence of obstruction.
[2021-04-28 16:34] LABS: Glucose,Whole Blood 125 mg/dL (75-99)
[2021-04-28] MEDS: LEVOFLOXACIN 750 MG TAB PO SCH (17:55)
[2021-04-28 20:24] LABS: Glucose,Whole Blood 164 mg/dL (75-99)
[2021-04-28] MEDS: DONEPEZIL 10 MG TAB PO SCH (21:23)
--- NOTE | 2021-04-28 23:38 | PN ---
PROGRESS NOTE DATE OF SERVICE: 04/28/2021 REASON FOR FOLLOWUP: Left leg infected wound. INTERVAL HISTORY: Patient is afebrile. The patient is breathing comfortably. The patient has been complaining of feeling nauseated and apparently had an episode of vomiting this morning. Denies any chest pain. No worsening pain to the left leg area. PHYSICAL EXAMINATION: Blood pressure 133/69 with a pulse of 56, temperature 97.9. She is 98% on room air. General description is an elderly female lying in bed in no distress. Respiratory system: Unlabored breathing, clear to auscultation anteriorly. Heart S1, S2. Regular rate and rhythm. Abdomen soft. No tenderness. Left leg wound base with some slough tissue, surrounding redness improved. No drainage. LABS: White count of 9.6, creatinine is 1.64. DIAGNOSTIC IMPRESSION AND PLAN: Patient with left leg infected wound with secondary cellulitis. Cultures have been positive for resistant Pseudomonas. Patient is covered with daptomycin, Fortaz and Levaquin to continue for about 10 days. Local care with wound VAC and close outpatient followup. MMODL / IJN: [id number] /
[2021-04-29] MEDS: TRIMETHOBENZAMIDE 100 MG/ML 2 ML VIAL IM PRN (04:54)
[2021-04-29 07:29] LABS: Glucose,Whole Blood 109 mg/dL (75-99)
[2021-04-29] MEDS: INSULIN ASPART (NovoLOG) 100 UNIT/ML VIAL SQ SCH ×4 (07:38→20:53)
--- NOTE | 2021-04-29 08:39 | P.PN ---
Subjective Progress Note Date: 04/29/21 Principal diagnosis: 81-year-old female admitted with bilateral leg swelling and wound in her left leg, followed up with acute kidney injury secondary to ATN secondary to vancomycin and improving. Baseline creatinine 1. At 3.88 on April 24 and has come down. Also has hyperkalemia and metabolic acidosis secondary to losartan and spironolactone, left lower extremity wound status post debridement and wound VAC, diabetes hypertension and hyponatremia. This morning she complains of nausea which is continuing. No diarrhea no abdominal pain no GERD. No shortness of breath. She has a Gregorio catheter. Urine output is documented at 105 0 mL Objective - Vital Signs Vital signs: Vital Signs Temp 97.8 F 04/29/21 08:00 Pulse 68 04/29/21 08:00 Resp 16 04/29/21 08:00 BP 130/70 04/29/21 08:00 Pulse Ox 97 04/29/21 08:00 Intake & Output 04/28/21 04/29/21 04/29/21 18:59 06:59 18:59 Intake Total 300 Output Total 450 600 Balance -450 -300 Intake: Intake, IV Titration 100 Amount cefTAZidime 2 gm In 100 Sodium Chloride 0.9% 100 ml @ 25 mls/hr IVPB Q24H [facility] Rx#:[id number] Oral 200 Output: Urine 450 600 Other: Voiding Method Indwelling Catheter On examination awake alert oriented HEENT exam no JVP neck is supple no facial asymmetry Lungs are clear to auscultation good air entry bilaterally Heart sounds unremarkable no murmur rub gallop Abdomen soft slightly protuberant Extremity exam reveals minimal edema Left leg has a wound VAC Neurologically awake alert - Labs CBC & Chem 7: 04/27/21 05:32 04/28/21 05:31 Labs: Abnormal Lab Results - Last 24 Hours (Table) 04/28/21 04/28/21 04/28/21 Range/Units 11:33 16:32 20:22 POC Glucose (mg/dL) 196 H 125 H 164 H (75-99) mg/dL 04/29/21 Range/Units 07:28 POC Glucose (mg/dL) 109 H (75-99) mg/dL Assessment and Plan Assessment: Impression 1. Acute kidney injury secondary to infected left leg old as well as vancomycin. Creatinine 1.0, peaked at 3.8 on 04/24/2021 and improved to 1.64 as of yesterday today's labs are pending 2. Hyponatremia secondary to acute kidney injury, stable at 131 as of yesterday 3. Left lower extremity wound status post debridement and wound VAC Recommendation 1. Continue same medications. 2. Discontinue sodium bicarb and watch 3. Continue fluid restriction and encouraged protein intake. 4. Consider removing the Gregorio catheter
[2021-04-29] MEDS: HEPARIN SODIUM,PORCINE/PF 5,000 UNIT/0.5 ML SYRINGE SQ SCH ×2 (09:20→20:52)
[2021-04-29] MEDS: glipiZIDE 5 MG TAB PO SCH (09:20)
[2021-04-29] MEDS: ISOSORBIDE MONONITRATE ER 30 MG TAB.ER.24H PO SCH (09:20)
[2021-04-29] MEDS: MAGNESIUM OXIDE 400 MG TAB PO SCH (09:20)
[2021-04-29] MEDS: ASPIRIN 81 MG PO SCH (09:20)
[2021-04-29] MEDS: CLOPIDOGREL 75 MG TAB PO SCH (09:21)
[2021-04-29] MEDS: carvediloL 6.25 MG TAB PO SCH ×2 (09:21→20:52)
[2021-04-29] MEDS: FAMOTIDINE 20 MG/2 ML VIAL IV SCH ×2 (09:22→20:52)
[2021-04-29] MEDS: COLLAGENASE 250 UNIT/GM OINTMENT 30 GM TUBE TOPICAL SCH (09:23)
[2021-04-29] MEDS ORDERED: PROMETHAZINE 25 MG TAB PO STA (10:23)
[2021-04-29 11:55] LABS: Glucose,Whole Blood 143 mg/dL (75-99)
[2021-04-29 12:15] LABS: African American GFR (CKD) 45.2 (60.0-200.0); BUN/Creat Ratio 23.62 Ratio (12.00-20.00); Blood Urea Nitrogen 30.7 mg/dL (9.0-27.0); Calcium 8.9 mg/dL (8.7-10.3); Magnesium 1.9 mg/dL (1.5-2.4); Potassium 4.1 mmol/L (3.5-5.5)
--- NOTE | 2021-04-29 14:31 | P.PN ---
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 Also she has a history of dementia Patient presents with nonhealing wounds in her left leg , he was found to have left lower leg wound with surrounding cellulitis. She underwent debridement and wound culture growing MRSA, and Stenotrophomonas. And the superficial wound culture was growing MRSA and pseudomonas. Infectious disease team are following the patient closely initially she was on IV vancomycin but that was switched to daptomycin and ceftazidime and oral Levaquin after she developed acute kidney injury secondary to vancomycin and dehydration. Her creatinine peaked up to 3.8. However with treatment and I will fluid her creatinine start trending down and today is 1.6. Freelance Web Designer evaluated the patient closely. Losartan, potassium supplement and Aldactone were held as well. Arterial Doppler showing moderate left femoropopliteal disease. Vascular surgery recommended outpatient evaluation for possible revascularization. On the day of discharge she was keep improving, she is alert and awake, she is somewhat confused related to her history of dementia, on the top of that she's taking [place] for pain control which make her little more confused in view of her kidney injury as well. 04/29/2021 Patient still complaining of from nausea and she refused to eat although she does not have vomiting. No abdominal pain. No diarrhea. No chest pain or dyspnea. No other complaints. She was placed on Tigan with some improvement, 1 extra dose of Phenergan was provided for her. She states that her nausea started developing few days ago. Because of this we switched her Levaquin by mouth to IV to see if that'll help her with nausea. EKG showing paced rhythm, no significant ST-T changes However the general prognosis is poor. we recommend palliative consult as an outpatient We will put her on liquid diet Objective - Vital Signs Vital signs: Vital Signs Temp 97.8 F 04/29/21 08:00 Pulse 68 04/29/21 08:00 Resp 16 04/29/21 08:00 BP 130/70 04/29/21 08:00 Pulse Ox 97 04/29/21 08:00 Intake & Output 04/28/21 04/29/21 04/29/21 18:59 06:59 18:59 Intake Total 300 Output Total 450 600 Balance -450 -300 Intake: Intake, IV Titration 100 Amount cefTAZidime 2 gm In 100 Sodium Chloride 0.9% 100 ml @ 25 mls/hr IVPB Q24H [facility] Rx#:[id number] Oral 200 Output: Urine 450 600 Other: Voiding Method Indwelling Catheter Indwelling Catheter - Exam GENERAL: The patient is alert and oriented x3, not in any acute distress. Well developed, well nourished. HEENT: Pupils are round and equally reacting to light. EOMI. No scleral icterus. No conjunctival pallor. Normocephalic, atraumatic. No pharyngeal erythema. No thyromegaly. CARDIOVASCULAR: S1 and S2 present. No murmurs, rubs, or gallops. PULMONARY: Chest is clear to auscultation, no wheezing or crackles. ABDOMEN: Soft, nontender, nondistended, normoactive bowel sounds. No palpable organomegaly. MUSCULOSKELETAL: No joint swelling or deformity. EXTREMITIES: No cyanosis, clubbing, or pedal edema. NEUROLOGICAL: Gross neurological examination did not reveal any focal deficits. SKIN: No rashes. no petechiae. - Labs CBC & Chem 7: 04/27/21 05:32 04/29/21 07:59 Labs: Abnormal Lab Results - Last 24 Hours (Table) 04/28/21 04/28/21 04/29/21 Range/Units 16:32 20:22 07:28 POC Glucose (mg/dL) 125 H 164 H 109 H (75-99) mg/dL Assessment and Plan Assessment: Severe nausea and vomiting, vomiting resolved but patient has not eaten much because of her nausea Infected left calf wound with surrounding cellulitis. Patient also has a black eschar wound on the left leg heal Diabetes mellitus Hypertension History of cardiomyopathy Plan: This is a pleasant 81 years old female who presents with infected left leg wound and cellulitis. Patient also has a black eschar wound on the left leg heal Patient is currently covered with daptomycin, ceftazidime and Levaquin. Inf ectious disease team were consulted Change her by mouth Levaquin and to IV dose. Continue with Tigan Labs and medication were reviewed.. Continue same treatment. Continue with symptomatic treatment. Resume home medication. Monitor lytes and vitals. DVT and GI prophylaxis. Further recommendationsas per clinical course of the patient DVT prophylaxis: Subcutaneous heparin GI Prophylaxis: Pepcid PT/OT: Pending Prognosis is guarded
[2021-04-29 17:01] LABS: Glucose,Whole Blood 163 mg/dL (75-99)
[2021-04-29 20:46] LABS: Glucose,Whole Blood 183 mg/dL (75-99)
[2021-04-29] MEDS: DONEPEZIL 10 MG TAB PO SCH (20:52)
--- NOTE | 2021-04-30 01:30 | PN ---
PROGRESS NOTE DATE OF SERVICE: 04/29/2021. REASON FOR FOLLOW UP: Left leg infected wound. INTERVAL HISTORY: Patient is afebrile. The patient is breathing comfortably. The patient's left leg pain and discomfort has improved. No further vomiting and denies having any diarrhea. PHYSICAL EXAMINATION: Her vital signs are stable. General description is an elderly female up in a chair in no distress. Respiratory system: Unlabored breathing, clear to auscultation anteriorly. Heart S1, S2. Regular rate and rhythm. Abdomen: Soft. No tenderness. Left leg wound is currently covered with a wound VAC. LABS: Creatinine is down to 1.3. DIAGNOSTIC IMPRESSION AND PLAN: Patient with left leg infected wound, multiple pathogen in this patient did show overall improvement in her kidney function. Antibiotic dosage will be adjusted mild improvement in kidney function. Local wound care to continue with wound VAC and monitor clinical course closely. MMODL / IJN: [id number] /
[2021-04-30 07:25] LABS: Glucose,Whole Blood 104 mg/dL (75-99)
[2021-04-30] MEDS: INSULIN ASPART (NovoLOG) 100 UNIT/ML VIAL SQ SCH ×4 (07:28→22:12)
--- NOTE | 2021-04-30 09:09 | P.PN ---
Subjective Progress Note Date: 04/30/21 Principal diagnosis: 81-year-old female admitted with bilateral leg swelling and wound in her left leg, followed up with acute kidney injury secondary to ATN secondary to vancomycin and improving. Baseline creatinine 1. At 3.88 on April 24 and has come down. Also has hyperkalemia and metabolic acidosis secondary to losartan and spironolactone, left lower extremity wound status post debridement and wound VAC, diabetes hypertension and hyponatremia. This morning she is feeling better the nausea is resolved. No abdominal pain no diarrhea Continues to have edema significant. She has a Gregorio catheter and had urine output not documented. Objective - Vital Signs Vital signs: Vital Signs Temp 97.5 F L 04/30/21 07:43 Pulse 60 04/30/21 07:43 Resp 18 04/30/21 07:43 BP 131/75 04/30/21 07:43 Pulse Ox 98 04/30/21 07:43 Intake & Output 04/29/21 04/30/21 04/30/21 18:59 06:59 18:59 Other: Voiding Method Indwelling Catheter Indwelling Catheter # Voids 2 On examination she is awake alert oriented comfortable HEENT exam no JVP neck is supple no facial asymmetry Heart sounds are significant for a grade 2-3 systolic ejection murmur with diminished carotid upstrokes suggestive of aortic stenosis Lungs are clear to auscultation good air entry bilaterally Abdomen soft nontender slightly protuberant Extremity exam was 2+ edema. Wound VAC on the left leg. Neurologically awake alert oriented but has generalized weakness - Labs CBC & Chem 7: 04/27/21 05:32 04/29/21 07:59 Labs: Abnormal Lab Results - Last 24 Hours (Table) 04/29/21 04/29/21 04/29/21 Range/Units 07:59 11:53 16:59 Sodium 130 L (135-145) mmol/L Chloride 94 L (96-109) mmol/L BUN 30.7 H (9.0-27.0) mg/dL Est GFR (CKD-EPI)AfAm 45.2 L (60.0-200.0) Est GFR (CKD-EPI)NonAf 39.0 L (60.0-200.0) BUN/Creatinine Ratio 23.62 H (12.00-20.00) Ratio Glucose 116 H (70-110) mg/dL POC Glucose (mg/dL) 143 H 163 H (75-99) mg/dL 04/29/21 04/30/21 Range/Units 20:45 07:23 Sodium (135-145) mmol/L Chloride (96-109) mmol/L BUN (9.0-27.0) mg/dL Est GFR (CKD-EPI)AfAm (60.0-200.0) Est GFR (CKD-EPI)NonAf (60.0-200.0) BUN/Creatinine Ratio (12.00-20.00) Ratio Glucose (70-110) mg/dL POC Glucose (mg/dL) 183 H 104 H (75-99) mg/dL Assessment and Plan Assessment: Impression 1. Acute kidney injury secondary to infected left leg wound as well as vancomycin associated nephrotoxicity. Creatinine 1.0, peaked at 3.8 on 04/24/2021 and improved to 1.3 as of yesterday today's labs are pending 2. Hyponatremia secondary to acute kidney injury, stable at 130 as of yesterday 3. Left lower extremity wound status post debridement and wound VAC Recommendation 1. Continue same medications. 2. Discontinued sodium bicarb yesterday and watch acid-base 3. Continue fluid restriction and encouraged protein intake. 4. Consider removing the Gregorio catheter
[2021-04-30] MEDS: ASPIRIN 81 MG PO SCH (09:15)
[2021-04-30] MEDS: carvediloL 6.25 MG TAB PO SCH ×2 (09:15→20:38)
[2021-04-30] MEDS: MAGNESIUM OXIDE 400 MG TAB PO SCH (09:15)
[2021-04-30] MEDS: CLOPIDOGREL 75 MG TAB PO SCH (09:15)
[2021-04-30] MEDS: glipiZIDE 5 MG TAB PO SCH (09:15)
[2021-04-30] MEDS: HEPARIN SODIUM,PORCINE/PF 5,000 UNIT/0.5 ML SYRINGE SQ SCH ×2 (09:15→20:38)
[2021-04-30] MEDS: ISOSORBIDE MONONITRATE ER 30 MG TAB.ER.24H PO SCH (09:15)
[2021-04-30] MEDS: FAMOTIDINE 20 MG/2 ML VIAL IV SCH ×2 (09:15→20:37)
[2021-04-30] MEDS: COLLAGENASE 250 UNIT/GM OINTMENT 30 GM TUBE TOPICAL SCH (09:16)
[2021-04-30] MEDS: HYDROcodone/APAP 5-325MG 1 EACH TAB PO PRN ×2 (09:27→19:20)
[2021-04-30 11:30] LABS: Glucose,Whole Blood 207 mg/dL (75-99)
--- NOTE | 2021-04-30 14:27 | P.PN ---
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 Also she has a history of dementia Patient presents with nonhealing wounds in her left leg , he was found to have left lower leg wound with surrounding cellulitis. She underwent debridement and wound culture growing MRSA, and Stenotrophomonas. And the superficial wound culture was growing MRSA and pseudomonas. Infectious disease team are following the patient closely initially she was on IV vancomycin but that was switched to daptomycin and ceftazidime and oral Levaquin after she developed acute kidney injury secondary to vancomycin and dehydration. Her creatinine peaked up to 3.8. However with treatment and I will fluid her creatinine start trending down and today is 1.6. Process Consultant evaluated the patient closely. Losartan, potassium supplement and Aldactone were held as well. Arterial Doppler showing moderate left femoropopliteal disease. Vascular surgery recommended outpatient evaluation for possible revascularization. On the day of discharge she was keep improving, she is alert and awake, she is somewhat confused related to her history of dementia, on the top of that she's taking [place] for pain control which make her little more confused in view of her kidney injury as well. 04/29/2021 Patient still complaining of from nausea and she refused to eat although she does not have vomiting. No abdominal pain. No diarrhea. No chest pain or dyspnea. No other complaints. She was placed on Tigan with some improvement, 1 extra dose of Phenergan was provided for her. She states that her nausea started developing few days ago. Because of this we switched her Levaquin by mouth to IV to see if that'll help her with nausea. EKG showing paced rhythm, no significant ST-T changes However the general prognosis is poor. we recommend palliative consult as an outpatient We will put her on liquid diet 04/30/2021 Patient was kept the last couple days because of persistent nausea, she had vomiting earlier but stopped now. Yesterday was still complaining from significant nausea and refusing to eat and we will place her on liquid diet. This morning she reports improvement, she is awake alert and pleasant, she feels hungry and she was asking if we can advance her diet which we did. She states that her nausea and eating feels better. She has normal bowel movement but passing gas. We change her oral Levaquin and to IV dose which might help improving her nausea. She is Been hemodynamically stable. No other new complaints. She remains on multiple antibiotics Possible discharge in 24-48 hours if she keeps improving and tolerates diet well Objective - Vital Signs Vital signs: Vital Signs Temp 97.5 F L 04/30/21 07:43 Pulse 60 04/30/21 07:43 Resp 18 04/30/21 07:43 BP 131/75 04/30/21 07:43 Pulse Ox 98 04/30/21 07:43 Intake & Output 04/29/21 04/30/21 04/30/21 18:59 06:59 18:59 Other: Voiding Method Indwelling Catheter Indwelling Catheter # Voids 2 - Exam GENERAL: The patient is alert and oriented x3, not in any acute distress. Well developed, well nourished. HEENT: Pupils are round and equally reacting to light. EOMI. No scleral icterus. No conjunctival pallor. Normocephalic, atraumatic. No pharyngeal erythema. No thyromegaly. CARDIOVASCULAR: S1 and S2 present. No murmurs, rubs, or gallops. PULMONARY: Chest is clear to auscultation, no wheezing or crackles. ABDOMEN: Soft, nontender, nondistended, normoactive bowel sounds. No palpable organomegaly. MUSCULOSKELETAL: No joint swelling or deformity. EXTREMITIES: No cyanosis, clubbing, or pedal edema. NEUROLOGICAL: Gross neurological examination did not reveal any focal deficits. SKIN: No rashes. no petechiae. - Labs CBC & Chem 7: 04/27/21 05:32 04/29/21 07:59 Labs: Abnormal Lab Results - Last 24 Hours (Table) 04/29/21 04/29/21 04/29/21 Range/Units 07:59 11:53 16:59 Sodium 130 L (135-145) mmol/L Chloride 94 L (96-109) mmol/L BUN 30.7 H (9.0-27.0) mg/dL Est GFR (CKD-EPI)AfAm 45.2 L (60.0-200.0) Est GFR (CKD-EPI)NonAf 39.0 L (60.0-200.0) BUN/Creatinine Ratio 23.62 H (12.00-20.00) Ratio Glucose 116 H (70-110) mg/dL POC Glucose (mg/dL) 143 H 163 H (75-99) mg/dL 04/29/21 04/30/21 Range/Units 20:45 07:23 Sodium (135-145) mmol/L Chloride (96-109) mmol/L BUN (9.0-27.0) mg/dL Est GFR (CKD-EPI)AfAm (60.0-200.0) Est GFR (CKD-EPI)NonAf (60.0-200.0) BUN/Creatinine Ratio (12.00-20.00) Ratio Glucose (70-110) mg/dL POC Glucose (mg/dL) 183 H 104 H (75-99) mg/dL Assessment and Plan Assessment: Severe nausea and vomiting, vomiting resolved but patient has not eaten much because of her nausea could be due to medication effect. Improving currently Infected left calf wound with surrounding cellulitis. Patient also has a black eschar wound on the left leg heal Diabetes mellitus Hypertension History of cardiomyopathy Plan: This is a pleasant 81 years old female who presents with infected left leg wound and cellulitis. Patient also has a black eschar wound on the left leg heal Patient is currently covered with daptomycin, ceftazidime and Levaquin. Infectious disease team were consulted Change her by mouth Levaquin and to IV dose. Continue with Tigan Advance diet as tolerated Labs and medication were reviewed.. Continue same treatment. Continue with symptomatic treatment. Resume home medication. Monitor lytes and vitals. DVT and GI prophylaxis. Further recommendationsas per clinical course of the patient DVT prophylaxis: Subcutaneous heparin GI Prophylaxis: Pepcid PT/OT: Pending Prognosis is guarded
[2021-04-30 16:35] LABS: Glucose,Whole Blood 90 mg/dL (75-99)
[2021-04-30] MEDS ORDERED: LEVOFLOXACIN 750MG-D5W PMX 750 MG in DEXTROSE/WATER 1 150ML.BAG IVPB SCH (18:00)
[2021-04-30] MEDS: DONEPEZIL 10 MG TAB PO SCH (20:38)
[2021-04-30 20:58] LABS: Glucose,Whole Blood 163 mg/dL (75-99)
--- NOTE | 2021-04-30 23:10 | PN ---
PROGRESS NOTE DATE OF SERVICE: 04/30/2021 REASON FOR FOLLOWUP: Left leg wound and cellulitis. INTERVAL HISTORY: The patient is afebrile. The patient is breathing comfortably. The patient's nausea and vomiting have improved. The patient denies having any chest pain, shortness of breath or cough. PHYSICAL EXAMINATION: Her blood pressure is 113/67, pulse of 75, temperature 97.7. She is 100% on room air. General description is an elderly female up in the chair in no distress. Respiratory system: Unlabored breathing. Clear to auscultation anteriorly. Heart S1, S2. Regular rate and rhythm. Abdomen soft, no tenderness. LABS: No new labs have been obtained today. DIAGNOSTIC IMPRESSION AND PLAN: Patient with left leg wound infection, status post debridement, and culture with MRSA, Pseudomonas and Stenotrophomonas. Patient is currently covered with Fortaz, vancomycin and Levaquin; to continue for another week or 10 days. Local wound care with a wound V.A.C. and close outpatient followup. MMODL / IJN: [id number] /
[2021-05-01 07:03] LABS: Glucose,Whole Blood 109 mg/dL (75-99)
[2021-05-01] MEDS: ISOSORBIDE MONONITRATE ER 30 MG TAB.ER.24H PO SCH (07:15)
[2021-05-01] MEDS: FAMOTIDINE 20 MG/2 ML VIAL IV SCH (07:15)
[2021-05-01] MEDS: MAGNESIUM OXIDE 400 MG TAB PO SCH (07:15)
[2021-05-01] MEDS: HEPARIN SODIUM,PORCINE/PF 5,000 UNIT/0.5 ML SYRINGE SQ SCH (07:15)
[2021-05-01] MEDS: glipiZIDE 5 MG TAB PO SCH (07:16)
[2021-05-01] MEDS: carvediloL 6.25 MG TAB PO SCH (07:16)
[2021-05-01] MEDS: ASPIRIN 81 MG PO SCH (07:16)
[2021-05-01] MEDS: CLOPIDOGREL 75 MG TAB PO SCH (07:16)
[2021-05-01] MEDS: INSULIN ASPART (NovoLOG) 100 UNIT/ML VIAL SQ SCH ×2 (07:17→12:01)
[2021-05-01 07:55] VITALS: BP 115/75; PULSE 75; RESP 16; TEMP 97.6
[2021-05-01 11:24] LABS: African American GFR (CKD) 51 (>60 ml/min/1.73 sqM); Anion Gap 5 mmol/L; Blood Urea Nitrogen 30 mg/dL (7-17); Calcium 8.8 mg/dL (8.4-10.2); Carbon Dioxide 29 mmol/L (22-30); Chloride 96 mmol/L (98-107); Glucose 148 mg/dL (74-99); Magnesium 1.9 mg/dL (1.6-2.3); Non-African American GFR(CKD) 44 (>60 ml/min/1.73 sqM); Potassium 4.9 mmol/L (3.5-5.1); Sodium 130 mmol/L (137-145)
--- NOTE | 2021-05-01 11:37 | XR ---
KUB HISTORY: Nausea Frontal KUB submitted and correlated prior exam 04/28/2021 Lung bases show a stable appearance. There is an underlying scoliosis. Degenerative disc changes are present visualized spine. There are overlying artifacts. Probable vascular calcifications within the abdomen and pelvis. No evident bowel obstruction or pneumoperitoneum. Increased density over the abdo men may be due to overlying soft tissue, be technical. IMPRESSION: Nonspecific findings. Follow-up as indicated.
[2021-05-01 11:47] LABS: Glucose,Whole Blood 128 mg/dL (75-99)
--- NOTE | 2021-05-01 12:44 | PN ---
PROGRESS NOTE Patient is seen for followup for acute kidney injury. Renal function has improved. Serum creatinine was 1.3 on 04/29/2021. There are plans for discharge. However, patient states that she is apprehensive. She is worried about her wound VAC and states that she may not be feeling good enough for discharge. There is no specific nausea, vomiting. No fever. Patient has an indwelling Gregorio catheter with good urine output. I have reassured her regarding the wound VAC. PHYSICAL EXAMINATION: On examination today, blood pressure is 115/75, heart rate 75 per minute. She is afebrile. Examination of the heart S1, S2. Examination of the lungs, bilateral breath sounds are heard. Abdomen is soft, nontender. Examination of lower extremities shows 1+ edema. Wound VAC on the left leg. LAB: Show sodium 130 on 04/29/2021, potassium of 4.1, BUN 30.7, serum creatinine 1.3. ASSESSMENT: 1. Acute kidney injury, currently improved, nonoliguric. Can try to remove Gregorio catheter. 2. Left lower extremity wound status post debridement and currently with wound VAC. 3. Hyponatremia, stable. 4. Vancomycin toxicity currently improved. PLAN: Okay to discharge from nephrology standpoint. Repeat labs in 2-3 days post discharge. Can try to remove Gregorio catheter and do a void trial. MMODL / IJN: [id number] /
--- NOTE | 2021-05-01 12:45 | P.CRDCN ---
History of Present Illness Consult date: 05/01/21 History of present illness: HISTORY OF PRESENT ILLNESS: This is a 81 year old female with a past medical history significant for coronary artery disease with previous CABG, cardiomyopathy, BiV AICD implantation in November 2020, congestive heart failure, hypertension, and hyperlipidemia. Patient follows with a viscose cellar charge hand in [place], Dr. Kapadia. We have been asked to see the patient in consultation for V-tach. Patient examined at the bedside. Patient is admitted to the hospital secondary nausea, vomiting, and lower extremity cellulitis. She underwent debridement of her left lower extremity wound with vascular surgery on 04/20/2021. The patient is supposed to be discharged to [facility] today. Patient has no complaints of chest pain or pressure. Denies SOB. Denies palpitations. Denies dizziness or lightheadedness. Denies syncope. Patient had an 8 beat run of V. tach this morning. EKG reveals sinus mechanism with left bundle-branch block. Telemetry reviewed with an 8 beat run of V. tach this morning. Chest xray cardiomegaly with bilateral infiltrates and small effusion. Laboratory data: Sodium 130. Potassium 4.9. BUN 30. Creatinine 1.17. Magnesium 1.9. Current home cardiac medications include Lipitor 20 mg at night, aspirin 81 mg daily, Imdur 30 mg daily, Plavix 75 mg daily, carvedilol 6.25 mg twice a day Most recent echocardiogram obtained in over 2020 revealed ejection fraction 20- 25%, severe mitral regurgitation, severe tricuspid regurgitation, and mild to moderate pulmonary hypertension. REVIEW OF SYSTEMS: At the time of my exam: CONSTITUTIONAL: Denies fever or chills. HEENT: Denies blurred vision, vision changes, or eye pain. Denies hemoptysis CARDIOVASCULAR: Denies chest pain. Denies orthopnea. Denies PND. Denies palpitations RESPIRATORY: Denies shortness of breath. GASTROINTESTINAL: Denies abdominal pain. Denies nausea or vomiting. HEMATOLOGIC: Denies bleeding disorders. GENITOURINARY: Denies any blood in urine. SKIN: Denies pruitis. Denies rash. PHYSICAL EXAM: VITAL SIGNS: Reviewed. GENERAL: Well-developed in no acute distress. HEENT: Head is normocephalic. Pupils are equal, round. Sclerae anicteric. Mucous membranes of the mouth are moist. Neck supple. No JVD or thyromegaly LUNGS: Respirations even and unlabored. Lungs essentially clear to auscultation bilaterally. HEART: Regular rate and rhythm. S1 and S2 heard. Systolic murmur. ABDOMEN: Soft. Nondistended. Nontender. EXTREMITIES: Normal range of motion. No clubbing or cyanosis. Peripheral pulses intact. Trace bilateral lower extremity edema NEUROLOGIC: Awake and alert. Oriented x 3. ASSESSMENT: Nausea and vomiting Left lower extremity wound with cellulitis Nonsustained ventricular tachycardia Coronary artery disease with previous CABG Ischemic cardiomyopathy with EF 20-25% History of BiV AICD implantation Chronic systolic congestive heart failure Hypertension Hyperlipidemia Diabetes PLAN: Patient with one run of nonsustained VT. Patient asymptomatic. Continue current cardiac medications Monitor electrolytes Patient is stable for discharge to [facility] today from a cardiac standpoint She is to follow up with her primary viscose cellar charge hand post discharge Nurse practitioner note has been reviewed by physician. Signing provider agrees with the documented findings, assessment, and plan of care. Past Medical History Past Medical History: Coronary Artery Disease (CAD), Heart Failure, Diabetes Mellitus, Hypertension, Myocardial Infarction ([place]), Pneumonia, Vascular Disorder Additional Past Medical History / Comment(s): Pt recently admitted to [facility] on 03/14/21 with CHF/L pleural effusion. Other hx: Chronic L calf wound/WCC, N IDM type II, neuropathy L foot/leg, cardiomyopathy/sees Dr Knight in [place], MIs, mild cognitive impairment, incontinence, iron anemia, hypmagnesemia Last Myocardial Infarction Date:: unsure History of Any Multi-Drug Resistant Organisms: MRSA Date of last positivie culture/infection: 04/20/21 MDRO Source:: Left Leg Past Surgical History: AICD, Bladder Surgery, Coronary Bypass/CABG, Heart Catheterization, Heart Catheterization With Stent, Hysterectomy, Joint Replacement, Pacemaker Additional Past Surgical History / Comment(s): 10/2020 AICD/pacer, PCI stents, 2010 CABG 3 vessel, L leg wound I&D, bkadder suspension, ovarian cyst removal, D&C, rectocele, colonoscopy, total r knee arthroplasty. Past Anesthesia/Blood Transfusion Reactions: No Reported Reaction Date of Last Stent Placement:: unknown Type of Cardiac Device: AICD Device Placement Date:: 2020 Smoking Status: Never smoker - Past Family History Father Family Medical History: No Reported History Additional Family Medical History / Comment(s): Father had heart problems. He chewed tobacco, smoked and drank quit a bit of alcohol. Mother Family Medical History: Diabetes Mellitus Medications and Allergies Home Medications Medication Instructions Recorded Confirmed Type Aspirin EC [Ecotrin Low Dose] 81 mg PO DAILY 03/14/21 04/16/21 History Atorvastatin [Lipitor] 20 mg PO HS 03/14/21 04/16/21 History Clopidogrel [Plavix] 75 mg PO DAILY 03/14/21 04/16/21 History Collagenase [Santyl Ointment] 1 applic TOPICAL Q12H 03/14/21 04/16/21 History Donepezil [Aricept] 10 mg PO HS 03/14/21 04/16/21 History Isosorbide Mononitrate ER [Imdur] 30 mg PO DAILY 03/14/21 04/16/21 History Magnesium Oxide 400 mg PO DAILY 03/14/21 04/16/21 History glipiZIDE [Glucotrol] 5 mg PO DAILY 03/14/21 04/16/21 History Melatonin 3 mg PO HS PRN tablet 03/20/21 04/16/21 Rx Benzocaine/Menthol [Dermoplast 1 spray TOPICAL BID PRN 04/16/21 04/16/21 History Pain Relieving [place]] Ferrous Sulfate [Iron (65 MG 325 mg PO BID 04/16/21 04/16/21 History Elemental)] Acetaminophen Tab [Tylenol] 650 mg PO Q6HR PRN tab 04/28/21 Rx DAPTOmycin [Cubicin] 500 mg IV DAILY #10 each 04/28/21 Rx Famotidine [Pepcid] 20 mg PO DAILY #30 tablet 04/28/21 Rx HYDROcodone/APAP 5-325MG [[place] 1 tab PO Q12HR PRN #6 tab 04/28/21 Rx 5-325] Heparin Sodium,Porcine [Heparin 5,000 unit SQ Q12HR #1 each 04/28/21 Rx Sodium] INSULIN ASPART (NovoLOG) [NovoLOG 0 unit SQ ACHS ml 04/28/21 Rx (formulary)] Levofloxacin [Levaquin] 500 mg PO DAILY 1 Days #7 tab 04/28/21 Rx Trimethobenzamide [Tigan] 300 mg PO QID PRN 3 Days #12 04/28/21 Rx capsule carvediloL [Coreg] 6.25 mg PO BID@0900,2100 tab 04/28/21 Rx cefTAZidime [Fortaz] 2 gm IV Q12H #20 each 04/28/21 Rx Allergies Allergy/AdvReac Type Severity Reaction Status Date / Time Sulfa (Sulfonamide Allergy Anaphylaxis Verified 04/16/21 23:40 Antibiotics) Physical Exam Vitals: Vital Signs Temp Pulse Pulse Pulse Pulse Resp BP 05/01/21 07:52 97.6 F 75 16 115/75 05/01/21 02:29 97.7 F 75 18 116/64 04/30/21 20:00 64 62 75 16 L 16 04/30/21 19:36 97.7 F 75 16 113/67 04/30/21 14:00 97.5 F L 62 16 112/52 Pulse Ox 05/01/21 07:52 98 05/01/21 02:29 99 04/30/21 20:00 04/30/21 19:36 04/30/21 14:00 100 Intake and Output 04/30/21 05/01/21 05/01/21 22:59 06:59 14:59 Output Total 1500 500 Balance -1500 -500 Output: Urine 1500 500 Other: Voiding Method Indwelling Catheter Results 04/27/21 05:32 05/01/21 10:35 Comprehensive Metabolic Panel 05/01/21 Range/Units 10:35 Sodium 130 L (137-145) mmol/L Potassium 4.9 (3.5-5.1) mmol/L Chloride 96 L (98-107) mmol/L Carbon Dioxide 29 (22-30) mmol/L BUN 30 H (7-17) mg/dL Creatinine 1.17 H (0.52-1.04) mg/dL Glucose 148 H (74-99) mg/dL Calcium 8.8 (8.4-10.2) mg/dL Current Medications Generic Name Dose Route Start Last Admin Trade Name Freq PRN Reason Stop Dose Admin Acetaminophen 650 mg 04/16/21 23:05 04/19/21 23:30 Acetaminophen Tab 325 Mg Tab PO 650 mg Q6HR PRN Administration Mild Pain or Fever > 100.5 Hydrocodone Bitart/Acetaminophen 1 each 04/16/21 23:07 04/30/21 19:20 Hydrocodone/Apap 5-325mg 1 Each Tab PO 1 each Q4HR PRN Administration Pain Aspirin 81 mg 04/17/21 09:00 12/13/21 07:16 Aspirin 81 Mg PO 81 mg DAILY@0900 CHERISE Administration Carvedilol 6.25 mg 04/17/21 09:00 05/01/21 07:16 Carvedilol 6.25 Mg Tab PO 6.25 mg BID@0900,2100 CHERISE Administration Clopidogrel Bisulfate 75 mg 04/17/21 09:00 05/01/21 07:16 Clopidogrel 75 Mg Tab PO 75 mg DAILY@0900 CHERISE Administration Collagenase 1 applic 04/17/21 13:15 04/30/21 09:16 Collagenase 250 Unit/Gm Ointment 30 Gm Tube TOPICAL 1 applic DAILY CHERISE Administration Protocol Donepezil HCl 10 mg 04/17/21 21:00 04/30/21 20:38 Donepezil 10 Mg Tab PO 10 mg HS@2100 CHERISE Administration Famotidine 20 mg 04/28/21 09:00 05/01/21 07:15 Famotidine 20 Mg/2 Ml Vial IV 20 mg Q12HR CHERISE Administration Glipizide 5 mg 04/17/21 09:00 05/01/21 07:16 Glipizide 5 Mg Tab PO 5 mg DAILY@0900 CHERISE Administration Heparin Sodium (Porcine) 5,000 unit 04/17/21 21:00 05/01/21 07:15 Heparin Sodium,Porcine/Pf 5,000 Unit/0.5 Ml Syringe SQ 5,000 unit Q12HR CHERISE Administration Hydromorphone HCl 0.5 mg 04/16/21 23:09 04/28/21 15:02 Hydromorphone 0.5 Mg/0.5 Ml Syringe IVP 0.5 mg Q4HR PRN Administration Pain Levofloxacin 750 mg/ IV 150 mls @ 100 mls/hr 04/30/21 18:00 04/30/21 18:02 Solution IVPB 100 mls/hr Q48H CHERISE Administration Ceftazidime 2 gm/ Sodium 100 mls @ 25 mls/hr 04/30/21 09:00 05/01/21 09:53 Chloride IVPB 25 mls/hr Q12H CHERISE Administration Daptomycin 250 mg/ Sodium 50 mls @ 100 mls/hr 04/30/21 09:00 05/01/21 07:16 Chloride IVPB 100 mls/hr Q24H CHERISE Administration Protocol Insulin Aspart 0 unit 04/21/21 07:30 05/01/21 07:17 Insulin Aspart (Novolog) 100 Unit/Ml Vial SQ Not Given ACHS [facility] Protocol Isosorbide Mononitrate 30 mg 04/17/21 09:00 05/01/21 07:15 Isosorbide Mononitrate Er 30 Mg Tab.Er.24h PO 30 mg DAILY@0900 CHERISE Administration Magnesium Oxide 400 mg 04/17/21 09:00 05/01/21 07:15 Magnesium Oxide 400 Mg Tab PO 400 mg DAILY@0900 CHERISE Administration Melatonin 3 mg 04/16/21 23:07 04/19/21 23:27 Melatonin 3 Mg Tablet PO 3 mg HS PRN Administration Insomnia Naloxone HCl 0.2 mg 04/16/21 23:05 Naloxone 0.4 Mg/Ml 1 Ml Vial IV Q2M PRN Opioid Reversal Trimethobenzamide HCl 100 mg 04/28/21 13:44 04/29/21 04:54 Trimethobenzamide 100 Mg/Ml 2 Ml Vial IM 100 mg Q6HR PRN Administration Nausea Intake and Output 04/30/21 05/01/21 05/01/21 22:59 06:59 14:59 Output Total 1500 500 Balance -1500 -500 Output: Urine 1500 500 Other: Voiding Method Indwelling Catheter 04/27/21 05:32 05/01/21 10:35
--- NOTE | 2021-05-01 12:54 | P.DS ---
Providers Date of admission: 04/16/21 23:05 Attending physician: Rogelio Gonzalez MD Consults: 04/17/21 13:24 Consult Physician Urgent Consulting Provider: Kate Oliver Consult Reason/Comments: Infected left leg wound Do you want consulting provider notified?: Yes 04/17/21 13:31 Consult Physician Routine Consulting Provider: Manish Jennings Consult Reason/Comments: wound lower extremity Do you want consulting provider notified?: Already Contacted 04/24/21 09:19 Consult Physician Routine Consulting Provider: Alex Lieberman Consult Reason/Comments: Acute Kidney injury Do you want consulting provider notified?: Yes, Notify in am 05/01/21 09:39 Consult Physician Routine Consulting Provider: Lorne Garza Consult Reason/Comments: vtach of 8 Do you want consulting provider notified?: Already Contacted Primary care physician: [facility] Course: diagnoses: Infected extensive left calf wound with surrounding cellulitis. Patient also has a black eschar wound on the left leg heal. Status post debridement. Wound cultures growing presented to MRSA and Stenotrophomonas. Acute kidney injury due to ATN from infection and also vancomycin toxicity. Creatinine level went up to 3.88-->3.5 --2.08 today. Hyperkalemia secondary to acute kidney injury, improved few runs of asymptomatic V. 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 Also she has a history of dementia Patient presents with nonhealing wounds in her left leg , he was found to have left lower leg wound with surrounding cellulitis. She underwent debridement and wound culture growing MRSA, and Stenotrophomonas. And the superficial wound culture was growing MRSA and pseudomonas. Infectious disease team are following the patient closely initially she was on IV vancomycin but that was switched to daptomycin and ceftazidime and oral Levaquin after she developed acute kidney injury secondary to vancomycin and dehydration. Her creatinine peaked up to 3.8. However with treatment and I will fluid her creatinine start trending down and today is 1.6. Pals Specialist evaluated the patient closely. Losartan, potassium supplement and Aldactone were held as well. Arterial Doppler showing moderate left femoropopliteal disease. Vascular surgery recommended outpatient evaluation for possible revascularization. On the day of discharge she was keep improving, she is alert and awake, she is somewhat confused related to her history of dementia, on the top of that she's taking [place] for pain control which make her little more confused in view of her kidney injury as well. She denies chest pain or dyspnea. No abdominal pain or diarrhea or vomiting. Her glucose is well controlled on the glipizide 5 mg daily. Her metformin was held due to her renal injury. Continue with insulin sliding scale Patient was cleared for discharge by all consultants including infectious disease team, nephrology, vascular surgery and went team. Problems and management plan were discussed with the patient and he verbalized understanding and acceptance Patient was found stable and can be discharged ECF in guarded prognosis however he needs follow-up as an outpatient. Patient was instructed to follow up with PCP Dr. Mccall within one week and patient agrees Patient was instructed to follow up with vascular surgeon Dr. Gregorio in 2 weeks. With wound center and Dr. Oliver in one week. And with chief estimator Dr. Kat in 2-3 wks I called the daughter Miss Ruiz at bed side and updated her with the problems and plan and she agrees with it and agrees pt can be discharged today , she is a arias of her guarded prognosis Physical exam Gen: patient is a awake and alert, no distress CVS: S1-S2, RRR, no murmur Lungs: B/L CTA, no wheezing Abdomen: soft, no distention, no tenderness, positive bowel sounds -Extremity: no leg edema or induration. Left leg wound with surrounding cellulitis, healing. Wound VAC is in place Time spent more than 35 minutes Patient Condition at Discharge: Fair Plan - Discharge Summary Discharge Rx Participant: No New Discharge Prescriptions: New RX: INSULIN ASPART (NovoLOG) [NovoLOG (formulary)] 0 unit SQ ACHS ml Heparin Sodium,Porcine [Heparin Sodium] 5,000 unit SQ Q12HR #1 each cefTAZidime [Fortaz] 2 gm IV Q12H #20 each RX: carvediloL [Coreg] 6.25 mg PO BID@0900,2100 tab Famotidine [Pepcid] 20 mg PO DAILY #30 tablet RX: Acetaminophen Tab [Tylenol] 650 mg PO Q6HR PRN tab PRN Reason: Mild Pain Or Fever > 100.5 RX: DAPTOmycin [Cubicin] 500 mg IV DAILY #10 each Trimethobenzamide [Tigan] 300 mg PO QID PRN 3 Days #12 capsule PRN Reason: Nausea And Vomiting RX: Levofloxacin 500Mg-D5w Pmx [Levaquin 500Mg-D5w Pmx] 500 mg IVPB Q24HR 7 Days #100 ml Continue RX: Collagenase [Santyl Ointment] 1 applic TOPICAL Q12H RX: Clopidogrel [Plavix] 75 mg PO DAILY RX: Aspirin EC [Ecotrin Low Dose] 81 mg PO DAILY RX: Donepezil [Aricept] 10 mg PO HS RX: Melatonin 3 mg PO HS PRN tablet PRN Reason: Insomnia RX: Benzocaine/Menthol [Dermoplast Pain Relieving [place]] 1 spray TOPICAL BID PRN PRN Reason: LEFT LEG WOUND PAIN RX: Magnesium Oxide 400 mg PO DAILY RX: Atorvastatin [Lipitor] 20 mg PO HS RX: glipiZIDE [Glucotrol] 5 mg PO DAILY RX: Isosorbide Mononitrate ER [Imdur] 30 mg PO DAILY RX: Ferrous Sulfate [Iron (65 MG Elemental)] 325 mg PO BID Changed RX: HYDROcodone/APAP 5-325MG [[place] 5-325] 1 tab PO Q12HR PRN #6 tab PRN Reason: Pain Discontinued RX: Potassium Chloride ER [K-Dur 10] 10 meq PO DAILY RX: Bumetanide [BUMEX] 1 mg PO BID RX: Spironolactone [Aldactone] 25 mg PO DAILY tab Nystatin 100,000 Unit/gm Powd [Mycostatin Powder] 1 applic TOPICAL BID PRN PRN Reason: INFECTION OF GROIN & BUTTOCKS carvediloL [Coreg] 3.125 mg PO BID RX: Losartan [Cozaar] 50 mg PO DAILY tab ALPRAZolam [Xanax] 0.25 mg PO BID PRN PRN Reason: Anxiety RX: metFORMIN HCL [Glucophage] 500 mg PO BID Discharge Medication List RX: Aspirin EC [Ecotrin Low Dose] 81 mg PO DAILY 03/14/21 [History] RX: Atorvastatin [Lipitor] 20 mg PO HS 03/14/21 [History] RX: Clopidogrel [Plavix] 75 mg PO DAILY 03/14/21 [History] RX: Collagenase [Santyl Ointment] 1 applic TOPICAL Q12H 03/14/21 [History] RX: Donepezil [Aricept] 10 mg PO HS 03/14/21 [History] RX: Isosorbide Mononitrate ER [Imdur] 30 mg PO DAILY 03/14/21 [History] RX: Magnesium Oxide 400 mg PO DAILY 03/14/21 [History] RX: glipiZIDE [Glucotrol] 5 mg PO DAILY 03/14/21 [History] RX: Melatonin 3 mg PO HS PRN tablet 03/20/21 [Rx] RX: Benzocaine/Menthol [Dermoplast Pain Relieving [place]] 1 spray TOPICAL BID PRN 04/16/21 [History] RX: Ferrous Sulfate [Iron (65 MG Elemental)] 325 mg PO BID 04/16/21 [History] Famotidine [Pepcid] 20 mg PO DAILY #30 tablet 04/28/21 [Rx] Heparin Sodium,Porcine [Heparin Sodium] 5,000 unit SQ Q12HR #1 each 04/28/21 [Rx] RX: Acetaminophen Tab [Tylenol] 650 mg PO Q6HR PRN tab 04/28/21 [Rx] RX: DAPTOmycin [Cubicin] 500 mg IV DAILY #10 each 04/28/21 [Rx] RX: HYDROcodone/APAP 5-325MG [[place] 5-325] 1 tab PO Q12HR PRN #6 tab 04/28/21 [Rx] RX: INSULIN ASPART (NovoLOG) [NovoLOG (formulary)] 0 unit SQ ACHS ml 04/28/21 [Rx] RX: carvediloL [Coreg] 6.25 mg PO BID@0900,2100 tab 04/28/21 [Rx] Trimethobenzamide [Tigan] 300 mg PO QID PRN 3 Days #12 capsule 04/28/21 [Rx] cefTAZidime [Fortaz] 2 gm IV Q12H #20 each 04/28/21 [Rx] RX: Levofloxacin 500Mg-D5w Pmx [Levaquin 500Mg-D5w Pmx] 500 mg IVPB Q24HR 7 Days #100 ml 05/01/21 [Rx] Follow up Appointment(s)/Referral(s): Camelia Gregorio DO [STAFF PHYSICIAN] - 2 Weeks [facility] [NON-STAFF] - 1 Week Armand Menendez DO [Primary Care Provider] - 1-2 days Alex Lieberman DO [STAFF PHYSICIAN] - 3 Weeks (Pals Specialist) Kate Oliver MD [STAFF PHYSICIAN] - 1 Week (infectiuos disease ) Activity/Diet/Wound Care/Special Instructions: Heart healthy diet. Encourage fluid intake Activity as tolerated needs wound care as outpatient continuous wound vac therapy at 125mmhg (120m mhg at ECF) Discharge Disposition: TRANSFER TO SNF/ECF
[2021-05-01] MEDS: HYDROcodone/APAP 5-325MG 1 EACH TAB PO PRN (14:48)
[2021-05-01] MEDS: COLLAGENASE 250 UNIT/GM OINTMENT 30 GM TUBE TOPICAL SCH (14:59)
--- NOTE | 2021-05-01 15:59 | PN ---
PROGRESS NOTE DATE OF SERVICE: 05/01/2021 REASON FOR FOLLOWUP: Left leg infected wound. INTERVAL HISTORY: The patient is afebrile. The patient is breathing comfortably. The patient's nausea and vomiting have resolved. No chest pain, shortness of breath or cough. No abdominal pain or pain to the left leg. PHYSICAL EXAMINATION: Blood pressure 115/75, pulse of 75, temperature 97.6. She is 98% on room air. General description is an elderly female up in the chair in no distress. Respiratory system: Unlabored breathing. Clear to auscultation anteriorly. Heart S1, S2. Regular rate and rhythm. Abdomen soft, no tenderness. Left leg is currently covered with a wound V.A.C. LABS: Creatinine is 1.17. DIAGNOSTIC IMPRESSION AND PLAN: Patient with left leg infected wound, status post debridement. Culture with Pseudomonas and MRSA. Plan is for daptomycin, Fortaz and Levaquin for another week. Local wound care with a wound V.A.C. and close outpatient followup. MMODL / IJN: [id number] /
== END 2021-05-01 14:54 | DRG 570 ==
LOC: EC 17:36 → 4SSUR 23:05 → 1SOBS 04-17 07:10 → 4SSUR 04-28 13:11
PROVIDERS: ADMIT Internal Medicine; ATTEND Internal Medicine
PROC: 0JBR0ZZ Excision of Left Foot Subcutaneous Tissue and Fascia, Open Approach (ICD-10-PCS; 2021-04-20)
PROC: 0KBT0ZZ Excision of Left Lower Leg Muscle, Open Approach (ICD-10-PCS; principal; 2021-04-20 07:30)
PROC: 02HV33Z Insertion of Infusion Device into Superior Vena Cava, Percutaneous Approach (ICD-10-PCS; 2021-04-26)
PROC: B548ZZA Ultrasonography of Superior Vena Cava, Guidance (ICD-10-PCS; 2021-04-26)
DX: L89.622 Pressure ulcer of left heel, stage 2 (principal); N17.0 Acute kidney failure with tubular necrosis; I50.23 Acute on chronic systolic (congestive) heart failure; E87.1 Hypo-osmolality and hyponatremia; E87.2 Acidosis; I47.2 Ventricular tachycardia; L97.213 Non-pressure chronic ulcer of right calf with necrosis of muscle; L97.229 Non-pressure chronic ulcer of left calf with unspecified severity; L97.809 Non-pressure chronic ulcer of other part of unspecified lower leg with unspecified severity; L03.116 Cellulitis of left lower limb; B95.62 Methicillin resistant Staphylococcus aureus infection as the cause of diseases classified elsewhere; B96.5 Pseudomonas (aeruginosa) (mallei) (pseudomallei) as the cause of diseases classified elsewhere; E11.51 Type 2 diabetes mellitus with diabetic peripheral angiopathy without gangrene; E11.621 Type 2 diabetes mellitus with foot ulcer; E11.622 Type 2 diabetes mellitus with other skin ulcer; E78.5 Hyperlipidemia, unspecified; E87.5 Hyperkalemia; E87.6 Hypokalemia; F03.90 Unspecified dementia, unspecified severity, without behavioral disturbance, psychotic disturbance, mood disturbance, and anxiety; I11.0 Hypertensive heart disease with heart failure; I25.10 Atherosclerotic heart disease of native coronary artery without angina pectoris; I25.2 Old myocardial infarction; I25.5 Ischemic cardiomyopathy; I44.7 Left bundle-branch block, unspecified; I70.232 Atherosclerosis of native arteries of right leg with ulceration of calf; J42 Unspecified chronic bronchitis; L97.512 Non-pressure chronic ulcer of other part of right foot with fat layer exposed; T36.8X5A Adverse effect of other systemic antibiotics, initial encounter; Z79.02 Long term (current) use of antithrombotics/antiplatelets; Z79.2 Long term (current) use of antibiotics; Z79.4 Long term (current) use of insulin; Z79.82 Long term (current) use of aspirin; Z79.84 Long term (current) use of oral hypoglycemic drugs; Z79.899 Other long term (current) drug therapy; Z83.3 Family history of diabetes mellitus; Z90.710 Acquired absence of both cervix and uterus; Z95.1 Presence of aortocoronary bypass graft; Z95.810 Presence of automatic (implantable) cardiac defibrillator; Z96.651 Presence of right artificial knee joint
CPT/HCPCS: 36415; 36573; 71045; 74018; 76770; 80048; 80053; 80202; 81001; 82550; 82565; 83036; 83605; 83735; 84132; 85025; 85652; 86140; 87040; 87070; 87075; 87077; 87186; 87205; 87635; 93005; 93922; 93923; 99284

== ENCOUNTER 2021-05-07 06:00 | Emergency (ER) | payer MEDICARE ==
[2021-05-07 06:09] VITALS: RESP 18; TEMP 97.8
[2021-05-07 06:36] LABS: Anisocytosis Slight; Basophils % (A) 0 %; Eosinophils # (A) 0.1 k/uL (0-0.7); Eosinophils % (A) 2 %; HCT 33.6 % (34.0-46.0); HGB 10.6 gm/dL (11.4-16.0); Hypochromasia Slight; Lymphocytes # (A) 1.4 k/uL (1.0-4.8); Lymphocytes % (A) 27 %; MCH 30.9 pg (25.0-35.0); MCHC 31.7 g/dL (31.0-37.0); MCV 97.5 fL (80.0-100.0); Macrocytosis Slight; Mean Platelet Volume 8.4; Monocytes # (A) 0.3 k/uL (0-1.0); Monocytes % (A) 6 %; Neutrophils # (A) 3.1 k/uL (1.3-7.7); Neutrophils % (A) 63 %; Platelet Count 132 k/uL (150-450); RBC 3.44 m/uL (3.80-5.40)
--- NOTE | 2021-05-07 06:50 | ED ---
General Adult HPI - General Chief complaint: Skin/Abscess/Foreign Body Stated complaint: Possible internal bleeding Time Seen by Provider: 05/07/21 06:09 Source: patient, EMS, RN notes reviewed Mode of arrival: EMS Limitations: no limitations - History of Present Illness Initial comments: 81-year-old female presents emergency Department from [facility] for evaluation of possible internal bleeding. Their concern as she's had increasing bruising of her abdomen. She states she has no pain over her abdomen just feels sore to the touch she states she's been receiving heparin and insulin injections in her abdomen typically in the same area. Patient denies any fevers chills no cough or cold-like symptoms patient states she has a wound VAC in her left leg she's been treated for chronic wound patient offers no other complaints. - Related Data Home Medications Medication Instructions Recorded Confirmed Aspirin EC [Ecotrin Low Dose] 81 mg PO DAILY@1700 03/14/21 05/07/21 Atorvastatin [Lipitor] 20 mg PO HS@2100 03/14/21 05/07/21 Clopidogrel [Plavix] 75 mg PO DAILY@0800 03/14/21 05/07/21 Donepezil [Aricept] 10 mg PO HS@2100 03/14/21 05/07/21 Isosorbide Mononitrate ER [Imdur] 30 mg PO DAILY@0800 03/14/21 05/07/21 Magnesium Oxide 400 mg PO DAILY@1700 03/14/21 05/07/21 glipiZIDE [Glucotrol] 5 mg PO DAILY@0800 03/14/21 05/07/21 Benzocaine/Menthol [Dermoplast 1 spray TOPICAL BID PRN 04/16/21 05/07/21 Pain Relieving [place]] Ferrous Sulfate [Iron (65 MG 325 mg PO BID@0800,1700 04/16/21 05/07/21 Elemental)] Bumetanide [Bumex] 1 mg PO DAILY@0800 05/07/21 05/07/21 DAPTOmycin [Cubicin] 500 mg IV DAILY@1400 05/07/21 05/07/21 Ensure Enlive 120 ml PO BID@0800,1700 05/07/21 05/07/21 Famotidine [Pepcid] 20 mg PO DAILY@0800 05/07/21 05/07/21 Heparin Sodium,Porcine [Heparin 5,000 unit SQ BID@0800,2100 05/07/21 05/07/21 Sodium] INSULIN ASPART (NovoLOG) [NovoLOG See Protocol SQ ACHS 05/07/21 05/07/21 (formulary)] L.acidoph,Paracasei, B.lactis 1 cap PO DAILY@0800 05/07/21 05/07/21 [Probiotic] Magnesium Hydroxide [Milk of 2,400 mg PO DAILY PRN 05/07/21 05/07/21 Magnesia] Melatonin 3 mg PO DAILY PRN 05/07/21 05/07/21 Na Phos,M-B/Na Phos,Di-Ba [Fleet 133 ml RECTAL DAILY PRN 05/07/21 05/07/21 Adult] Ondansetron [Zofran] 4 mg PO TID PRN 05/07/21 05/07/21 Spironolactone [Aldactone] 12.5 mg PO DAILY@0800 05/07/21 05/07/21 bisacodyL [Dulcolax] 10 mg RECTAL DAILY PRN 05/07/21 05/07/21 cefTAZidime [Fortaz] 2 gm IV BID@0800,2100 05/07/21 05/07/21 Previous Rx's Medication Instructions Recorded Acetaminophen Tab [Tylenol] 650 mg PO Q6HR PRN tab 04/28/21 HYDROcodone/APAP 5-325MG [[place] 1 tab PO Q12HR PRN #6 tab 04/28/21 5-325] carvediloL [Coreg] 6.25 mg PO BID@0900,2100 tab 04/28/21 Allergies Allergy/AdvReac Type Severity Reaction Status Date / Time Sulfa (Sulfonamide Allergy Anaphylaxis Verified 05/07/21 07:33 Antibiotics) Review of Systems ROS Statement: Those systems with pertinent positive or pertinent negative responses have been documented in the HPI. ROS Other: All systems not noted in ROS Statement are negative. Past Medical History Past Medical History: Coronary Artery Disease (CAD), Heart Failure, Diabetes Mellitus, Hypertension, Myocardial Infarction (AL), Pneumonia, Vascular Disorder Additional Past Medical History / Comment(s): Pt recently admitted to [facility] on 03/14/21 with CHF/L pleural effusion. Other hx: Chronic L calf wound/WCC, NIDM type II, neuropathy L foot/leg, cardiomyopathy/sees Dr Knight in [place], MIs, mild cognitive impairment, incontinence, iron anemia, hypmagnesemia Last Myocardial Infarction Date:: unsure History of Any Multi-Drug Resistant Organisms: MRSA Date of last positivie culture/infection: 04/20/21 MDRO Source:: Left Leg Past Surgical History: AICD, Bladder Surgery, Coronary Bypass/CABG, Heart Catheterization, Heart Catheterization With Stent, Hysterectomy, Joint Replacement, Pacemaker Additional Past Surgical History / Comment(s): 10/2020 AICD/pacer, PCI stents, 2010 CABG 3 vessel, L leg wound I&D, bkadder suspension, ovarian cyst removal, D&C, rectocele, colonoscopy, total r knee arthroplasty. Past Anesthesia/Blood Transfusion Reactions: No Reported Reaction Date of Last Stent Placement:: unknown Type of Cardiac Device: AICD Device Placement Date:: 2020 Past Psychological History: No Psychological Hx Reported Smoking Status: Never smoker Past Alcohol Use History: None Reported Past Drug Use History: None Reported - Past Family History Father Family Medical History: No Reported History Additional Family Medical History / Comment(s): Father had heart problems. He chewed tobacco, smoked and drank quit a bit of alcohol. Mother Family Medical History: Diabetes Mellitus General Exam Limitations: no limitations General appearance: alert, in no apparent distress Head exam: Present: atraumatic, normocephalic, normal inspection Eye exam: Present: normal appearance, PERRL, EOMI. Absent: scleral icterus, conjunctival injection, periorbital swelling Respiratory exam: Present: normal lung sounds bilaterally. Absent: respiratory distress, wheezes, rales, rhonchi, stridor Cardiovascular Exam: Present: regular rate, normal rhythm, normal heart sounds. Absent: systolic murmur, diastolic murmur, rubs, gallop, clicks GI/Abdominal exam: Present: soft, normal bowel sounds, other (Diffuse ecchymotic areas over the lower abdomen). Absent: distended, tenderness, guarding, rebound, rigid Neurological exam: Present: alert Course Vital Signs 05/07/21 06:07 Temperature 97.8 F Pulse Rate 66 Respiratory 18 Rate Blood Pressure 123/67 O2 Sat by Pulse 99 Oximetry Medical Decision Making - Medical Decision Making CT does not show any intra-abdominal bleeding. Patient has some mild swelling, questionable pneumonia over her lower lotion though she has no fever no white count of cough cold like symptoms and she is currently on antibiotics. Patient will be discharged back to our would return parameters were discussed. - Lab Data Result diagrams: 05/07/21 06:30 05/07/21 06:30 Lab Results 05/07/21 05/07/21 05/07/21 Range/Units 06:30 06:30 06:30 WBC 5.0 (3.8-10.6) k/uL RBC 3.44 L (3.80-5.40) m/uL Hgb 10.6 L (11.4-16.0) gm/dL Hct 33.6 L (34.0-46.0) % MCV 97.5 (80.0-100.0) fL MCH 30.9 (25.0-35.0) pg MCHC 31.7 (31.0-37.0) g/dL RDW 17.0 H (11.5-15.5) % Plt Count 132 L (150-450) k/uL MPV 8.4 Neutrophils % 63 % Lymphocytes % 27 % Monocytes % 6 % Eosinophils % 2 % Basophils % 0 % Neutrophils # 3.1 (1.3-7.7) k/uL Lymphocytes # 1.4 (1.0-4.8) k/uL Monocytes # 0.3 (0-1.0) k/uL Eosinophils # 0.1 (0-0.7) k/uL Basophils # 0.0 (0-0.2) k/uL Hypochromasia Slight Anisocytosis Slight Macrocytosis Slight PT 13.1 H (9.0-12.0) sec INR 1.3 H (<1.2) APTT 25.9 (22.0-30.0) sec Sodium 132 L (137-145) mmol/L Potassium 4.4 (3.5-5.1) mmol/L Chloride 99 (98-107) mmol/L Carbon Dioxide 28 (22-30) mmol/L Anion Gap 5 mmol/L BUN 22 H (7-17) mg/dL Creatinine 0.89 (0.52-1.04) mg/dL Est GFR (CKD-EPI)AfAm 71 (>60 ml/min/1.73 sqM) Est GFR (CKD-EPI)NonAf 62 (>60 ml/min/1.73 sqM) Glucose 99 (74-99) mg/dL Calcium 8.9 (8.4-10.2) mg/dL Total Bilirubin 0.8 (0.2-1.3) mg/dL AST 23 (14-36) U/L ALT 12 (4-34) U/L Alkaline Phosphatase 149 H (38-126) U/L Total Protein 6.1 L (6.3-8.2) g/dL Albumin 2.9 L (3.5-5.0) g/dL Disposition Clinical Impression: Superficial bruising of abdominal wall Disposition: HOME SELF-CARE Condition: Stable Instructions (If sedation given, give patient instructions): Ecchymosis (ED) Additional Instructions: Please return to the Emergency Department if symptoms worsen or any other concerns. Is patient prescribed a controlled substance at d/c from ED?: No Referrals: Faraz Loza MD [Primary Care Provider] - 1-2 days Time of Disposition: 08:04
[2021-05-07 06:55] LABS: Albumin 2.9 g/dL (3.5-5.0); Calcium 8.9 mg/dL (8.4-10.2); Potassium 4.4 mmol/L (3.5-5.1); Total Bilirubin 0.8 mg/dL (0.2-1.3); Total Protein 6.1 g/dL (6.3-8.2)
[2021-05-07 06:57] LABS: INR 1.3 (<1.2); Partial Thromboplastin Time 25.9 sec (22.0-30.0); Prothrombin Time 13.1 sec (9.0-12.0)
--- NOTE | 2021-05-07 07:44 | CT ---
EXAMINATION TYPE: CT abdomen pelvis w con DATE OF EXAM: 05/07/2021 COMPARISON: None HISTORY: Abdominal pain CT DLP: 859.2 mGycm Automated exposure control for dose reduction was used. TECHNIQUE: Helical acquisition of images was performed from the lung bases through the pelvis. CONTRAST: Performed without Oral Contrast and with IV Contrast, patient injected with 80 mL of Isovue 300. FINDINGS: There is a small right lower lobe infiltrate and small right pleural effusion. There is marked cardio megaly and a 2-lead cardiac pacemaker. There is diffuse fatty infiltration liver. There are surgical absence of the gallbladder. There is no focal mass or organomegaly involving the pancreas, spleen or adrenal glands. The kidneys excrete contrast promptly and symmetrically and there is no hydronephrosis or solid renal mass. There is marked arteriosclerotic calcifications of the abdominal aorta but no evidence of aneurysm. T here is no retroperitoneal adenopathy or hemorrhage. The bowel loops are normal in caliber. There is a moderate amount of stool within the colon and there is moderate to marked diverticulosis of the colon. There are no inflammatory changes within the mese ntery. There is no free intraperitoneal air. There is a moderate amount of ascites. There is no pelvic mass, abscess or adenopathy. There are surgical absence of the uterus. There are 2 small bubbles of air within the urinary bladder and clinical correlation is recommended. There are degenerative changes in the hips bilaterally. The osseous structures are intact. There is d iffuse edema within the soft tissues consistent with anasarca. IMPRESSION: 1. Right lower lobe infiltrate and small pleural effusion. 2. Marked cardiomegaly. 3. [id number] ascites and diffuse soft tissue density consistent with anasarca. 4. No bowel obstruction or free intraperitoneal air. Marked diverticulosis of the colon without defin ite evidence 5. Cholecystectomy and hysterectomy 6. small amount of air within the urinary bladder and clinical correlation is recommended.
[2021-05-07 08:48] VITALS: BP 114/74; PULSE 68
== END 2021-05-07 08:48 | disposition home or self-care (01) ==
LOC: EC 06:00
DX: S30.1XXA Contusion of abdominal wall, initial encounter (principal); E11.40 Type 2 diabetes mellitus with diabetic neuropathy, unspecified; I11.0 Hypertensive heart disease with heart failure; I50.9 Heart failure, unspecified; I25.10 Atherosclerotic heart disease of native coronary artery without angina pectoris; I25.2 Old myocardial infarction; Z79.4 Long term (current) use of insulin; Z79.84 Long term (current) use of oral hypoglycemic drugs; Z79.82 Long term (current) use of aspirin; Z79.899 Other long term (current) drug therapy; X58.XXXA Exposure to other specified factors, initial encounter
CPT/HCPCS: 36415; 80053; 85025; 85610; 85730; 74177; 99284; Q9967

== ENCOUNTER 2021-06-03 07:03 | Inpatient (IN) | payer MEDICARE ==
--- NOTE | 2021-06-03 07:27 | ED ---
General Adult HPI - General Chief complaint: Upper Respiratory Infection Stated complaint: Elevated BMP Time Seen by Provider: 06/03/21 07:05 Source: patient, EMS, RN notes reviewed, old records reviewed Mode of arrival: EMS - History of Present Illness Initial comments: This is a 81-year-old female with past medical history significant for bypass and AICD congestive heart failure and a wound VAC on the left leg. Patient sent in because she has more edema in her right leg and she has congestion as well as an elevated BNP. Patient complains of pain in left leg which she states is chronic. Patient states she also has some congestion and coughing up a lot of sputum. Patient was tested at the long term for COVID and influenza both were negative. Patient denies any chest pain or palpitations. Patient does state that she does feel little more short of breath normal. Patient denies headache patient denies numbness weakness. Patient denies any lightheadedness or dizziness. Patient denies any trauma. - Related Data Home Medications Medication Instructions Recorded Confirmed Aspirin EC [Ecotrin Low Dose] 81 mg PO DAILY@0800 03/14/21 06/03/21 Atorvastatin [Lipitor] 20 mg PO HS@2100 03/14/21 06/03/21 Clopidogrel [Plavix] 75 mg PO DAILY@0800 03/14/21 06/03/21 Donepezil [Aricept] 10 mg PO HS@2100 03/14/21 06/03/21 Isosorbide Mononitrate ER [Imdur] 30 mg PO DAILY@0800 03/14/21 06/03/21 Magnesium Oxide 400 mg PO DAILY@0800 03/14/21 06/03/21 glipiZIDE [Glucotrol] 5 mg PO DAILY@0800 03/14/21 06/03/21 Benzocaine/Menthol [Dermoplast 1 spray TOPICAL BID PRN 04/16/21 06/03/21 Pain Relieving [place]] Ferrous Sulfate [Iron (65 MG 325 mg PO BID@0800,1700 04/16/21 06/03/21 Elemental)] Bumetanide [Bumex] 1 mg PO DAILY@0800 05/07/21 06/03/21 Ensure Enlive 120 ml PO BID@0800,1700 05/07/21 06/03/21 Famotidine [Pepcid] 20 mg PO DAILY@0800 05/07/21 06/03/21 Heparin Sodium,Porcine [Heparin 5,000 unit SQ BID@0800,2100 05/07/21 06/03/21 Sodium] INSULIN ASPART (NovoLOG) [NovoLOG See Protocol SQ ACHS 05/07/21 06/03/21 (formulary)] L.acidoph,Paracasei, B.lactis 1 cap PO DAILY@0800 05/07/21 06/03/21 [Probiotic] Magnesium Hydroxide [Milk of 2,400 mg PO DAILY PRN 05/07/21 06/03/21 Magnesia] Melatonin 3 mg PO DAILY PRN 05/07/21 06/03/21 Na Phos,M-B/Na Phos,Di-Ba [Fleet 133 ml RECTAL DAILY PRN 05/07/21 06/03/21 Adult] Ondansetron [Zofran] 4 mg PO TID PRN 05/07/21 06/03/21 Spironolactone [Aldactone] 12.5 mg PO DAILY@0800 05/07/21 06/03/21 bisacodyL [Dulcolax] 10 mg RECTAL DAILY PRN 05/07/21 06/03/21 ALPRAZolam [Xanax] 0.25 mg PO BID PRN 06/03/21 06/03/21 HYDROcodone/APAP 5-325MG [[place] 1 tab PO Q6H PRN 06/03/21 06/03/21 5-325] Lidocaine 5% Cream 1 applic TOPICAL WE@0800 06/03/21 06/03/21 Lidocaine 5% Cream 1 applic TOPICAL DAILY PRN 06/03/21 06/03/21 Nystatin 100,000Unit/gm Cream 1 applic TOPICAL BID 06/03/21 06/03/21 [Mycostatin Cream] Previous Rx's Medication Instructions Recorded Acetaminophen Tab [Tylenol] 650 mg PO Q6HR PRN tab 04/28/21 carvediloL [Coreg] 6.25 mg PO BID@0900,2100 tab 04/28/21 Allergies Allergy/AdvReac Type Severity Reaction Status Date / Time Sulfa (Sulfonamide Allergy Anaphylaxis Verified 06/03/21 07:48 Antibiotics) Review of Systems ROS Statement: Those systems with pertinent positive or pertinent negative responses have been documented in the HPI. ROS Other: All systems not noted in ROS Statement are negative. Past Medical History Past Medical History: Coronary Artery Disease (CAD), Heart Failure, Diabetes Mellitus, Hypertension, Myocardial Infarction ([place]), Pneumonia, Vascular Disorder Additional Past Medical History / Comment(s): Pt recently admitted to [facility] on 03/14/21 with CHF/L pleural effusion. Other hx: Chronic L calf wound/WCC, NIDM type II, neuropathy L foot/leg, cardiomyopathy/sees Dr Knight in [place], MIs, mild cognitive impairment, incontinence, iron anemia, hypmagnesemia Last Myocardial Infarction Date:: unsure History of Any Multi-Drug Resistant Organisms: MRSA Date of last positivie culture/infection: 04/20/21 MDRO Source:: Left Leg Past Surgical History: AICD, Bladder Surgery, Coronary Bypass/CABG, Heart Catheterization, Heart Catheterization With Stent, Hysterectomy, Joint Replacement, Pacemaker Additional Past Surgical History / Comment(s): 10/2020 AICD/pacer, PCI stents, 2010 CABG 3 vessel, L leg wound I&D, bkadder suspension, ovarian cyst removal, D&C, rectocele, colonoscopy, total r knee arthroplasty. Past Anesthesia/Blood Transfusion Reactions: No Reported Reaction Date of Last Stent Placement:: unknown Type of Cardiac Device: AICD Device Placement Date:: 2020 Past Psychological History: No Psychological Hx Reported Smoking Status: Never smoker Past Alcohol Use History: None Reported Past Drug Use History: None Reported - Past Family History Father Family Medical History: No Reported History Additional Family Medical History / Comment(s): Father had heart problems. He chewed tobacco, smoked and drank quit a bit of alcohol. Mother Family Medical History: Diabetes Mellitus General Exam - General Exam Comments Initial Comments: GENERAL: Patient is well-developed and well-nourished. Patient is nontoxic and well- hydrated and is in no acute distress. ENT: Neck is soft and supple. No significant lymphadenopathy is noted. Oropharynx is clear. Moist mucous membranes. Neck has full range of motion without eliciting any pain. EYES: The sclera were anicteric and conjunctiva were pink and moist. Extraocular movements were intact and pupils were equal round and reactive to light. Eyelids were unremarkable. PULMONARY: Patient is crackles bilateral and rhonchi on the right. CARDIOVASCULAR: Patient has an irregular heart rate. ABDOMEN: Soft and nontender with normal bowel sounds. No palpable organomegaly was noted. There is no palpable pulsatile mass. SKIN: Skin is clear with no lesions or rashes and otherwise unremarkable. NEUROLOGIC: Patient is alert and oriented x3. Cranial nerves II through XII are grossly intact. Motor and sensory are also intact. Normal speech, volume and content. Symmetrical smile. MUSCULOSKELETAL: Normal extremities with adequate strength and full range of motion. 2+ edema right. Patient has a wound VAC on the left leg heel wound appears to be free of infection. LYMPHATICS: No significant lymphadenopathy is noted PSYCHIATRIC: Normal psychiatric evaluation. Course Vital Signs 06/03/21 06/03/21 07:05 07:14 Temperature 97.6 F Pulse Rate 72 Respiratory 20 21 Rate Blood Pressure 133/81 O2 Sat by Pulse 98 Oximetry Medical Decision Making - Medical Decision Making EKG shows an atrial paced rhythm at 60 bpm OH interval 150 QRS is 136 QT interval is 496 QTC is 427. Patient has an occasional PAC. Chest x-ray shows pulmonary edema. Patient received Lasix in the emergency department. I spoke with the [facility] agreed to admit the patient and the patient I continued Lasix Nitropaste on the floor. - Lab Data Result diagrams: 06/03/21 07:45 06/03/21 07:45 Lab Results 06/03/21 06/03/21 06/03/21 Range/Units 07:45 07:45 07:45 WBC 7.3 (3.8-10.6) k/uL RBC 3.57 L (3.80-5.40) m/uL Hgb 11.4 (11.4-16.0) gm/dL Hct 35.9 (34.0-46.0) % MCV 100.6 H (80.0-100.0) fL MCH 32.1 (25.0-35.0) pg MCHC 31.9 (31.0-37.0) g/dL RDW 15.8 H (11.5-15.5) % Plt Count 201 (150-450) k/uL MPV 8.2 Neutrophils % 69 % Lymphocytes % 19 % Monocytes % 7 % Eosinophils % 2 % Basophils % 1 % Neutrophils # 5.1 (1.3-7.7) k/uL Lymphocytes # 1.4 (1.0-4.8) k/uL Monocytes # 0.5 (0-1.0) k/uL Eosinophils # 0.1 (0-0.7) k/uL Basophils # 0.0 (0-0.2) k/uL Macrocytosis Slight PT 12.2 H (9.0-12.0) sec INR 1.2 H (<1.2) APTT 23.4 (22.0-30.0) sec Sodium (137-145) mmol/L Potassium (3.5-5.1) mmol/L Chloride (98-107) mmol/L Carbon Dioxide (22-30) mmol/L Anion Gap mmol/L BUN (7-17) mg/dL Creatinine (0.52-1.04) mg/dL Est GFR (CKD-EPI)AfAm (>60 ml/min/1.73 sqM) Est GFR (CKD-EPI)NonAf (>60 ml/min/1.73 sqM) Glucose (74-99) mg/dL Plasma Lactic Acid Clem (0.7-2.0) mmol/L Calcium (8.4-10.2) mg/dL Magnesium (1.6-2.3) mg/dL Total Bilirubin (0.2-1.3) mg/dL AST (14-36) U/L ALT (4-34) U/L Alkaline Phosphatase (38-126) U/L Troponin I (0.000-0.034) ng/mL NT-Pro-B Natriuret Pep pg/mL Total Protein (6.3-8.2) g/dL Albumin (3.5-5.0) g/dL Coronavirus (PCR) Not Detected (Not Detectd) 06/03/21 06/03/21 06/03/21 Range/Units 07:45 07:45 07:45 WBC (3.8-10.6) k/uL RBC (3.80-5.40) m/uL Hgb (11.4-16.0) gm/dL Hct (34.0-46.0) % MCV (80.0-100.0) fL MCH (25.0-35.0) pg MCHC (31.0-37.0) g/dL RDW (11.5-15.5) % Plt Count (150-450) k/uL MPV Neutrophils % % Lymphocytes % % Monocytes % % Eosinophils % % Basophils % % Neutrophils # (1.3-7.7) k/uL Lymphocytes # (1.0-4.8) k/uL Monocytes # (0-1.0) k/uL Eosinophils # (0-0.7) k/uL Basophils # (0-0.2) k/uL Macrocytosis PT (9.0-12.0) sec INR (<1.2) APTT (22.0-30.0) sec Sodium 130 L (137-145) mmol/L Potassium 4.8 (3.5-5.1) mmol/L Chloride 95 L (98-107) mmol/L Carbon Dioxide 24 (22-30) mmol/L Anion Gap 11 mmol/L BUN 38 H (7-17) mg/dL Creatinine 0.88 (0.52-1.04) mg/dL Est GFR (CKD-EPI)AfAm 73 (>60 ml/min/1.73 sqM) Est GFR (CKD-EPI)NonAf 63 (>60 ml/min/1.73 sqM) Glucose 105 H (74-99) mg/dL Plasma Lactic Acid Clem 1.0 (0.7-2.0) mmol/L Calcium 9.3 (8.4-10.2) mg/dL Magnesium 1.8 (1.6-2.3) mg/dL Total Bilirubin 1.7 H (0.2-1.3) mg/dL AST 20 (14-36) U/L ALT 15 (4-34) U/L Alkaline Phosphatase 217 H (38-126) U/L Troponin I 0.017 (0.000-0.034) ng/mL NT-Pro-B Natriuret Pep pg/mL Total Protein 7.0 (6.3-8.2) g/dL Albumin 3.6 (3.5-5.0) g/dL Coronavirus (PCR) (Not Detectd) 06/03/21 Range/Units 07:45 WBC (3.8-10.6) k/uL RBC (3.80-5.40) m/uL Hgb (11.4-16.0) gm/dL Hct (34.0-46.0) % MCV (80.0-100.0) fL MCH (25.0-35.0) pg MCHC (31.0-37.0) g/dL RDW (11.5-15.5) % Plt Count (150-450) k/uL MPV Neutrophils % % Lymphocytes % % Monocytes % % Eosinophils % % Basophils % % Neutrophils # (1.3-7.7) k/uL Lymphocytes # (1.0-4.8) k/uL Monocytes # (0-1.0) k/uL Eosinophils # (0-0.7) k/uL Basophils # (0-0.2) k/uL Macrocytosis PT (9.0-12.0) sec INR (<1.2) APTT (22.0-30.0) sec Sodium (137-145) mmol/L Potassium (3.5-5.1) mmol/L Chloride (98-107) mmol/L Carbon Dioxide (22-30) mmol/L Anion Gap mmol/L BUN (7-17) mg/dL Creatinine (0.52-1.04) mg/dL Est GFR (CKD-EPI)AfAm (>60 ml/min/1.73 sqM) Est GFR (CKD-EPI)NonAf (>60 ml/min/1.73 sqM) Glucose (74-99) mg/dL Plasma Lactic Acid Clem (0.7-2.0) mmol/L Calcium (8.4-10.2) mg/dL Magnesium (1.6-2.3) mg/dL Total Bilirubin (0.2-1.3) mg/dL AST (14-36) U/L ALT (4-34) U/L Alkaline Phosphatase (38-126) U/L Troponin I (0.000-0.034) ng/mL NT-Pro-B Natriuret Pep 9380 pg/mL Total Protein (6.3-8.2) g/dL Albumin (3.5-5.0) g/dL Coronavirus (PCR) (Not Detectd) Critical Care Time Critical Care Time: Yes Total Critical Care Time: 35 Disposition Clinical Impression: Pulmonary edema Disposition: ADMITTED IP TO THIS [facility] Referrals: Faraz Loza MD [Primary Care Provider] - 1-2 days Time of Disposition: 09:12
[2021-06-03 08:03] LABS: Basophils % (A) 1 %; Eosinophils # (A) 0.1 k/uL (0-0.7); Eosinophils % (A) 2 %; HCT 35.9 % (34.0-46.0); HGB 11.4 gm/dL (11.4-16.0); Lymphocytes # (A) 1.4 k/uL (1.0-4.8); Lymphocytes % (A) 19 %; MCH 32.1 pg (25.0-35.0); MCHC 31.9 g/dL (31.0-37.0); MCV 100.6 fL (80.0-100.0); Macrocytosis Slight; Mean Platelet Volume 8.2; Monocytes # (A) 0.5 k/uL (0-1.0); Monocytes % (A) 7 %; Neutrophils # (A) 5.1 k/uL (1.3-7.7); Neutrophils % (A) 69 %; Platelet Count 201 k/uL (150-450); RBC 3.57 m/uL (3.80-5.40); RDW 15.8 % (11.5-15.5); WBC 7.3 k/uL (3.8-10.6)
--- NOTE | 2021-06-03 08:04 | XR ---
EXAMINATION TYPE: XR chest 2V DATE OF EXAM: 06/03/2021 COMPARISON: 04/28/2021 HISTORY: Shortness of breath TECHNIQUE: Frontal and lateral views of the chest are obtained. FINDINGS: There is a 2-lead cardiac pacemaker and median sternotomy wires. There is marked cardiomegaly and mild cephalization the pulmonary vasculature. There is no pneumothorax or large pleural effusion. There is no airspace consolidation. The osseous structures are intact. IMPRESSION: Marked cardiomegaly with mild cephalization the pulmonary vasculature. Findings are cons istent with mild CHF.
[2021-06-03 08:11] LABS: INR 1.2 (<1.2); Partial Thromboplastin Time 23.4 sec (22.0-30.0); Prothrombin Time 12.2 sec (9.0-12.0)
[2021-06-03 08:15] LABS: Albumin 3.6 g/dL (3.5-5.0); Calcium 9.3 mg/dL (8.4-10.2); Magnesium 1.8 mg/dL (1.6-2.3); Potassium 4.8 mmol/L (3.5-5.1); Total Bilirubin 1.7 mg/dL (0.2-1.3)
[2021-06-03] MEDS ORDERED: FUROSEMIDE 10 MG/ML 4 ML VIAL IV STA (09:07)
[2021-06-03] MEDS ORDERED: HYDROmorphone 0.5 MG/0.5 ML SYRINGE IVP STA (10:44)
[2021-06-03] MEDS: NITROGLYCERIN OINT 1 INCH/GM PACKET TOPICAL SCH ×3 (13:58→21:38)
--- NOTE | 2021-06-03 14:12 | P.CRDCN ---
History of Present Illness History of present illness: This is Dr. Hutchinson dictating a consult on this patient The patient was interviewed and examined IMPRESSION / ASSESSMENT: Congestive heart failure, chronic LV systolic dysfunction status post ICD implantation Acute exacerbation of chronic CHF PLAN: Continue IV Lasix Daily electrolytes Restart carvedilol 3.125 mg twice daily, at a low dose than her home dose Continue spironolactone 12.5 mg daily Consideration for starting ENTRESTO I don't see any injury tensive receptor blockers nor do I see any TIM inhibitor as. I would hold these 2 medications Hold isosorbide Continue Plavix and aspirin and atorvastatin HPI 81-year-old female complaining of congestion and coughing She complains of shortness of breath As well as cough Blood cultures were sent from the ER She has known ischemic adenopathy status post ICD implantation at [facility] ROS: No fever chills or rigors, no cough, phlegm or expectoration, no nausea, vomiting or diarrhea, no hematuria, dysuria, no musculoskeletal complaints, no strokes or seizures, no skin lesions. EXAMINATION: Prominent neck veins Reduced breath sounds bilaterally with some crackles at the bases Systolic murmur at the apex Left precordial heave Left lower extremity bandaged Afebrile 97.60 any Fahrenheit, pulse rate in the 60s and 70s Blood pressure 133/81 mmHg REVIEW OF LABS, ECG & MEDICAL DATA Chest x-ray shows cardiomegaly with cephalization, increased pulmonary markings consistent with CHF Normal white count of 7.3 thousand Hemoglobin 11.4 Sodium 1:30, potassium 4.8 BUN 38 and creatinine 0.9 NT proBNP 9380 Coronavirus PCR not detected Past Medical History Past Medical History: Coronary Artery Disease (CAD), Heart Failure, Diabetes Mellitus, Hypertension, Myocardial Infarction ([place]), Pneumonia, Vascular Disorder Additional Past Medical History / Comment(s): Pt recently admitted to [facility] on 03/14/21 with CHF/L pleural effusion. Other hx: Chronic L calf wound/WCC, NIDM type II, neuropathy L foot/leg, cardiomyopathy/sees Dr Knight in [place], MIs, mild cognitive impairment, incontinence, iron anemia, hypmagnesemia Last Myocardial Infarction Date:: unsure History of Any Multi-Drug Resistant Organisms: MRSA Date of last positivie culture/infection: 04/20/21 MDRO Source:: Left Leg Past Surgical History: AICD, Bladder Surgery, Coronary Bypass/CABG, Heart Catheterization, Heart Catheterization With Stent, Hysterectomy, Joint Replacement, Pacemaker Additional Past Surgical History / Comment(s): 10/2020 AICD/pacer, PCI stents, 2010 CABG 3 vessel, L leg wound I&D, bkadder suspension, ovarian cyst removal, D&C, rectocele, colonoscopy, total r knee arthroplasty. Past Anesthesia/Blood Transfusion Reactions: No Reported Reaction Date of Last Stent Placement:: unknown Type of Cardiac Device: AICD Device Placement Date:: 2020 Past Psychological History: No Psychological Hx Reported Smoking Status: Never smoker Past Alcohol Use History: None Reported Past Drug Use History: None Reported - Past Family History Father Family Medical History: No Reported History Additional Family Medical History / Comment(s): Father had heart problems. He chewed tobacco, smoked and drank quit a bit of alcohol. Mother Family Medical History: Diabetes Mellitus Medications and Allergies Home Medications Medication Instructions Recorded Confirmed Type Aspirin EC [Ecotrin Low Dose] 81 mg PO DAILY@0800 03/14/21 06/03/21 History Atorvastatin [Lipitor] 20 mg PO HS@2100 03/14/21 06/03/21 History Clopidogrel [Plavix] 75 mg PO DAILY@0800 03/14/21 06/03/21 History Donepezil [Aricept] 10 mg PO HS@2100 03/14/21 06/03/21 History Isosorbide Mononitrate ER [Imdur] 30 mg PO DAILY@0800 03/14/21 06/03/21 History Magnesium Oxide 400 mg PO DAILY@0800 03/14/21 06/03/21 History glipiZIDE [Glucotrol] 5 mg PO DAILY@0800 03/14/21 06/03/21 History Benzocaine/Menthol [Dermoplast 1 spray TOPICAL BID PRN 04/16/21 06/03/21 History Pain Relieving [place]] Ferrous Sulfate [Iron (65 MG 325 mg PO BID@0800,1700 04/16/21 06/03/21 History Elemental)] Acetaminophen Tab [Tylenol] 650 mg PO Q6HR PRN tab 04/28/21 06/03/21 Rx carvediloL [Coreg] 6.25 mg PO BID@0900,2100 tab 04/28/21 06/03/21 Rx Bumetanide [Bumex] 1 mg PO DAILY@0800 05/07/21 06/03/21 History Ensure Enlive 120 ml PO BID@0800,1700 05/07/21 06/03/21 History Famotidine [Pepcid] 20 mg PO DAILY@0800 05/07/21 06/03/21 History Heparin Sodium,Porcine [Heparin 5,000 unit SQ BID@0800,2100 05/07/21 06/03/21 History Sodium] INSULIN ASPART (NovoLOG) [NovoLOG See Protocol SQ ACHS 05/07/21 06/03/21 History (formulary)] L.acidoph,Paracasei, B.lactis 1 cap PO DAILY@0800 05/07/21 06/03/21 History [Probiotic] Magnesium Hydroxide [Milk of 2,400 mg PO DAILY PRN 05/07/21 06/03/21 History Magnesia] Melatonin 3 mg PO DAILY PRN 05/07/21 06/03/21 History Na Phos,M-B/Na Phos,Di-Ba [Fleet 133 ml RECTAL DAILY PRN 05/07/21 06/03/21 History Adult] Ondansetron [Zofran] 4 mg PO TID PRN 05/07/21 06/03/21 History Spironolactone [Aldactone] 12.5 mg PO DAILY@0800 05/07/21 06/03/21 History bisacodyL [Dulcolax] 10 mg RECTAL DAILY PRN 05/07/21 06/03/21 History ALPRAZolam [Xanax] 0.25 mg PO BID PRN 06/03/21 06/03/21 History HYDROcodone/APAP 5-325MG [[place] 1 tab PO Q6H PRN 06/03/21 06/03/21 History 5-325] Lidocaine 5% Cream 1 applic TOPICAL WE@0800 06/03/21 06/03/21 History Lidocaine 5% Cream 1 applic TOPICAL DAILY PRN 06/03/21 06/03/21 History Nystatin 100,000Unit/gm Cream 1 applic TOPICAL BID 06/03/21 06/03/21 History [Mycostatin Cream] Allergies Allergy/AdvReac Type Severity Reaction Status Date / Time Sulfa (Sulfonamide Allergy Anaphylaxis Verified 06/03/21 07:48 Antibiotics) Physical Exam Vitals: Vital Signs Temp Pulse Resp BP Pulse Ox 06/03/21 12:06 68 18 121/83 96 06/03/21 09:34 69 18 128/86 97 06/03/21 07:14 21 06/03/21 07:05 97.6 F 72 20 133/81 98 Intake and Output 06/02/21 06/03/21 06/03/21 22:59 06:59 14:59 Other: Weight 61.235 kg Results 06/03/21 07:45 06/03/21 07:45 Cardiac Enzymes 06/03/21 06/03/21 Range/Units 07:45 07:45 AST 20 (14-36) U/L Troponin I 0.017 (0.000-0.034) ng/mL Coagulation 06/03/21 Range/Units 07:45 PT 12.2 H (9.0-12.0) sec APTT 23.4 (22.0-30.0) sec CBC 06/03/21 Range/Units 07:45 WBC 7.3 (3.8-10.6) k/uL RBC 3.57 L (3.80-5.40) m/uL Hgb 11.4 (11.4-16.0) gm/dL Hct 35.9 (34.0-46.0) % Plt Count 201 (150-450) k/uL Comprehensive Metabolic Panel 06/03/21 Range/Units 07:45 Sodium 130 L (137-145) mmol/L Potassium 4.8 (3.5-5.1) mmol/L Chloride 95 L (98-107) mmol/L Carbon Dioxide 24 (22-30) mmol/L BUN 38 H (7-17) mg/dL Creatinine 0.88 (0.52-1.04) mg/dL Glucose 105 H (74-99) mg/dL Calcium 9.3 (8.4-10.2) mg/dL AST 20 (14-36) U/L ALT 15 (4-34) U/L Alkaline Phosphatase 217 H (38-126) U/L Total Protein 7.0 (6.3-8.2) g/dL Albumin 3.6 (3.5-5.0) g/dL Current Medications Generic Name Dose Route Start Last Admin Trade Name Freq PRN Reason Stop Dose Admin Furosemide 40 mg 06/03/21 21:00 Furosemide 10 Mg/Ml 4 Ml Vial IV Q12HR CHERISE Hydromorphone HCl 0.5 mg 06/03/21 10:44 Hydromorphone 0.5 Mg/0.5 Ml Syringe IVP Q4HR PRN Pain Nitroglycerin 1 inch 06/03/21 13:00 06/03/21 13:58 Nitroglycerin Oint 1 Inch/Gm Packet TOPICAL 1 inch QID [facility] Administration Intake and Output 06/02/21 06/03/21 06/03/21 22:59 06:59 14:59 Other: Weight 61.235 kg Patient Weight 06/04/21 06:59 Weight 61.235 kg 06/03/21 07:45 06/03/21 07:45
[2021-06-03] MEDS: HYDROmorphone 0.5 MG/0.5 ML SYRINGE IVP PRN (14:49)
[2021-06-03] MEDS: carvediloL 3.125 MG TAB PO SCH (17:24)
[2021-06-03] MEDS ORDERED: ONDANSETRON 4 MG TAB PO PRN (19:49)
[2021-06-03] MEDS ORDERED: LIDOCAINE 5% OINTMENT 50 GM JAR TOPICAL PRN (19:49)
[2021-06-03] MEDS ORDERED: bisacodyL 10 MG SUPP RECTAL PRN (19:49)
[2021-06-03] MEDS ORDERED: ACETAMINOPHEN TAB 325 MG TAB PO PRN (19:49)
[2021-06-03] MEDS ORDERED: ALPRAZolam 0.25 MG TAB PO PRN (19:49)
[2021-06-03 21:14] LABS: T4, Free (Free Thyroxine) 1.66 ng/dL (0.78-2.19)
[2021-06-03] MEDS: HEPARIN SODIUM,PORCINE/PF 5,000 UNIT/0.5 ML SYRINGE SQ SCH (21:38)
[2021-06-03] MEDS: FUROSEMIDE 10 MG/ML 4 ML VIAL IV SCH (21:38)
[2021-06-03] MEDS: INSULIN ASPART (NovoLOG) 100 UNIT/ML VIAL SQ SCH (21:38)
[2021-06-03] MEDS: DONEPEZIL 10 MG TAB PO SCH (21:38)
[2021-06-03 21:40] LABS: Glucose,Whole Blood 285 mg/dL (75-99)
--- NOTE | 2021-06-03 21:41 | P.HPIM ---
History of Present Illness This is a pleasant 81 years old female with past medical history of Coronary Artery Disease status post CABG and AICD and stents. , Heart Failure, Diabetes Mellitus, Hypertension, Chronic L calf wound/WCC, NIDM type II, neuropathy L foot/leg, cardiomyopathy, mild cognitive impairment, incontinence, iron anemia, hypmagnesemia Patient has some memory difficulty and information updated with the help of the daughter at bedside. [facility]-sided chest pain that started a few days ago or yesterday but patient could not remember radiating to the left shoulder about 8/10 in severity T felt like pressure for the last 2 days She denies dyspnea about she has some coughing with clear to yellow phlegm. As per daughter she underwent debridement of her chronic left leg wound about 2 days ago. Vitas looks stable. Labs showing unremarkable CBC INR is 1.2 Sodium 1:30 Creatinine 0.8 Liver enzymes are unremarkable Troponin are -0.017 0.015, proBNP is elevated 9380 and 6550 TSH is elevated at 8.3 with normal free T3 at 1.6. Coronavirus not detected. Urine analysis is not suspicious of infection Cardiology were consulted who added Coreg 3.125, and entresto , Lipitor and Plavix Echocardiogram from 02/2021 showed ejection fraction of 20-25% Review of Systems CONSTITUTIONAL: No fever, no malaise, no fatigue. HEENT: No recent visual problems or hearing problems. Denied any sore throat. CARDIOVASCULAR: No orthopnea, PND, no palpitations, no syncope. PULMONARY: No chest wall tenderness, no hemoptysis. GASTROINTESTINAL: No diarrhea, no nausea, no vomiting, no abdominal pain. Normoactive bowel sounds. NEUROLOGICAL: No headaches, no weakness, no numbness. HEMATOLOGICAL: Denies any bleeding or petechiae. GENITOURINARY: Denies any burning micturition, frequency, or urgency. MUSCULOSKELETAL/RHEUMATOLOGICAL: Denies any joint pain, swelling, or any muscle pain. ENDOCRINE: Denies any polyuria or polydipsia. Past Medical History Past Medical History: Coronary Artery Disease (CAD), Heart Failure, Diabetes Mellitus, Hypertension, Myocardial Infarction (AL), Pneumonia, Vascular Disorder Additional Past Medical History / Comment(s): Pt recently admitted to [facility] on 03/14/21 with CHF/L pleural effusion. Other hx: Chronic L calf wound/WCC, NIDM type II, neuropathy L foot/leg, cardiomyopathy/sees Dr Knight in [place], MIs, mild cognitive impairment, incontinence, iron anemia, hypmagnesemia Last Myocardial Infarction Date:: unsure History of Any Multi-Drug Resistant Organisms: MRSA Date of last positivie culture/infection: 04/20/21 MDRO Source:: Left Leg Past Surgical History: AICD, Bladder Surgery, Coronary Bypass/CABG, Heart Catheterization, Heart Catheterization With Stent, Hysterectomy, Joint Replacement, Pacemaker Additional Past Surgical History / Comment(s): 10/2020 AICD/pacer, PCI stents, 2010 CABG 3 vessel, L leg wound I&D, bkadder suspension, ovarian cyst removal, D&C, rectocele, colonoscopy, total r knee arthroplasty. Past Anesthesia/Blood Transfusion Reactions: No Reported Reaction Date of Last Stent Placement:: unknown Type of Cardiac Device: AICD Device Placement Date:: 2020 Past Psychological History: No Psychological Hx Reported Additional Psychological History / Comment(s): pt from [facility]. Pt is a retired nurse. Smoking Status: Never smoker Past Alcohol Use History: None Reported Past Drug Use History: None Reported - Past Family History Father Family Medical History: No Reported History Additional Family Medical History / Comment(s): Father had heart problems. He chewed tobacco, smoked and drank quit a bit of alcohol. Mother Family Medical History: Diabetes Mellitus Medications and Allergies Home Medications Medication Instructions Recorded Confirmed Type Aspirin EC [Ecotrin Low Dose] 81 mg PO DAILY@0800 03/14/21 06/03/21 History Atorvastatin [Lipitor] 20 mg PO HS@209903/14/21 06/03/21 History Clopidogrel [Plavix] 75 mg PO DAILY@0800 03/14/21 06/03/21 History Donepezil [Aricept] 10 mg PO HS@2100 03/14/21 06/03/21 History Isosorbide Mononitrate ER [Imdur] 30 mg PO DAILY@0800 03/14/21 06/03/21 History Magnesium Oxide 400 mg PO DAILY@0800 03/14/21 06/03/21 History glipiZIDE [Glucotrol] 5 mg PO DAILY@0800 03/14/21 06/03/21 History Benzocaine/Menthol [Dermoplast 1 spray TOPICAL BID PRN 04/16/21 06/03/21 History Pain Relieving Saucier] Ferrous Sulfate [Iron (65 MG 325 mg PO BID@0800,1700 04/16/21 06/03/21 History Elemental)] Acetaminophen Tab [Tylenol] 650 mg PO Q6HR PRN tab 04/28/21 06/03/21 Rx carvediloL [Coreg] 6.25 mg PO BID@0900,2100 tab 04/28/21 06/03/21 Rx Bumetanide [Bumex] 1 mg PO DAILY@0800 05/07/21 06/03/21 History Ensure Enlive 120 ml PO BID@0800,1700 05/07/21 06/03/21 History Famotidine [Pepcid] 20 mg PO DAILY@0800 05/07/21 06/03/21 History Heparin Sodium,Porcine [Heparin 5,000 unit SQ BID@0800,2100 05/07/21 06/03/21 History Sodium] INSULIN ASPART (NovoLOG) [NovoLOG See Protocol SQ ACHS 05/07/21 06/03/21 History (formulary)] L.acidoph,Paracasei, B.lactis 1 cap PO DAILY@0800 05/07/21 06/03/21 History [Probiotic] Magnesium Hydroxide [Milk of 2,400 mg PO DAILY PRN 05/07/21 06/03/21 History Magnesia] Melatonin 3 mg PO DAILY PRN 05/07/21 06/03/21 History Na Phos,M-B/Na Phos,Di-Ba [Fleet 133 ml RECTAL DAILY PRN 05/07/21 06/03/21 History Adult] Ondansetron [Zofran] 4 mg PO TID PRN 05/07/21 06/03/21 History Spironolactone [Aldactone] 12.5 mg PO DAILY@0800 05/07/21 06/03/21 History bisacodyL [Dulcolax] 10 mg RECTAL DAILY PRN 05/07/21 06/03/21 History ALPRAZolam [Xanax] 0.25 mg PO BID PRN 06/03/21 06/03/21 History HYDROcodone/APAP 5-325MG [[place] 1 tab PO Q6H PRN 06/03/21 06/03/21 History 5-325] Lidocaine 5% Cream 1 applic TOPICAL WE@0800 06/03/21 06/03/21 History Lidocaine 5% Cream 1 applic TOPICAL DAILY PRN 06/03/21 06/03/21 History Nystatin 100,000Unit/gm Cream 1 applic TOPICAL BID 06/03/21 06/03/21 History [Mycostatin Cream] Allergies Allergy/AdvReac Type Severity Reaction Status Date / Time Sulfa (Sulfonamide Allergy Anaphylaxis Verified 06/03/21 07:48 Antibiotics) Physical Exam Vitals: Vital Signs Temp Pulse Pulse Resp BP BP Pulse Ox 06/03/21 18:44 97 F L 65 16 141/73 98 06/03/21 18:36 97.7 F 65 16 141/73 98 06/03/21 17:23 67 18 131/66 96 06/03/21 14:31 70 18 118/70 99 06/03/21 12:06 68 18 121/83 96 06/03/21 09:34 69 18 128/86 97 06/03/21 07:14 21 06/03/21 07:05 97.6 F 72 20 133/81 98 Intake and Output 06/03/21 06/03/21 06/03/21 06:59 14:59 22:59 Output Total 500 Balance -500 Output: Urine 500 Other: Weight 61.235 kg 61.235 kg GENERAL: The patient is alert and oriented x3, not in any acute distress. Well developed, well nourished. HEENT: Pupils are round and equally reacting to light. EOMI. No scleral icterus. No conjunctival pallor. Normocephalic, atraumatic. No pharyngeal erythema. No thyromegaly. CARDIOVASCULAR: S1 and S2 present. No murmurs, rubs, or gallops. PULMONARY: Chest is clear to auscultation, no wheezing or crackles. ABDOMEN: Soft, nontender, nondistended, normoactive bowel sounds. No palpable organomegaly. MUSCULOSKELETAL: No joint swelling or deformity. EXTREMITIES: No cyanosis, clubbing, or pedal edema. NEUROLOGICAL: Gross neurological examination did not reveal any focal deficits. SKIN: No rashes. No petechiae Results CBC & Chem 7: 06/03/21 07:45 06/03/21 07:45 Labs: Abnormal Lab Results - Last 24 Hours (Table) 06/03/21 06/03/21 06/03/21 Range/Units 07:45 07:45 07:45 RBC 3.57 L (3.80-5.40) m/uL MCV 100.6 H (80.0-100.0) fL RDW 15.8 H (11.5-15.5) % PT 12.2 H (9.0-12.0) sec INR 1.2 H (<1.2) Sodium 130 L (137-145) mmol/L Chloride 95 L (98-107) mmol/L BUN 38 H (7-17) mg/dL Glucose 105 H (74-99) mg/dL Total Bilirubin 1.7 H (0.2-1.3) mg/dL Alkaline Phosphatase 217 H (38-126) U/L TSH (0.465-4.680) mIU/L 06/03/21 Range/Units 07:45 RBC (3.80-5.40) m/uL MCV (80.0-100.0) fL RDW (11.5-15.5) % PT (9.0-12.0) sec INR (<1.2) Sodium (137-145) mmol/L Chloride (98-107) mmol/L BUN (7-17) mg/dL Glucose (74-99) mg/dL Total Bilirubin (0.2-1.3) mg/dL Alkaline Phosphatase (38-126) U/L TSH 8.390 H (0.465-4.680) mIU/L Thrombosis Risk Factor Assmnt - Choose All That Apply Any of the Below Risk Factors Present?: Yes Each Factor Represents 1 point: Acute AL, Medical pt on bed rest, Obesity (BMI >25), Swollen legs (current) Other Risk Factors: Yes Each Risk Factor Represents 3 Points: Age 75 years or older Other congenital or acquired thrombophilia - If yes, enter type in comment: No Thrombosis Risk Factor Assessment Total Risk Factor Score: 7 Thrombosis Risk Factor Assessment Level: High Risk Assessment and Plan Assessment: Acute on chronic systolic congestive heart failure, with ejection fraction 20- 25% History of coronary artery disease status post CABG, stents and AICD Type 2 diabetes mellitus and diabetic neuropathy Hypertension Chronic left calf wound status post debridement and wound VAC. Cognitive impairment Urine incontinence History of iron deficiency anemia Plan: This is a pleasant 81 years old female who presents with chest pain and acute CHF. No do serial troponins Cartilage consult continue with IV Lasix twice a day Continue with Coreg, Plavix, Lipitor and entresto Follow-up echocardiogram Consults infectious disease team for left leg wound Labs and medication were reviewed.. Continue same treatment. Continue with symptomatic treatment. Resume home medication. Monitor lytes and vitals. DVT and GI prophylaxis. Further recommendations depends on the clinical course of the patient DVT prophylaxis: Subcutaneous heparin GI Prophylaxis: Pepcid PT/OT: Pending Prognosis is guarded
[2021-06-04] MEDS: HYDROcodone/APAP 5-325MG 1 EACH TAB PO PRN ×3 (00:44→20:48)
[2021-06-04 05:27] LABS: Glucose,Whole Blood 131 mg/dL (75-99)
[2021-06-04] MEDS: INSULIN ASPART (NovoLOG) 100 UNIT/ML VIAL SQ SCH ×4 (05:33→20:49)
[2021-06-04] MEDS: carvediloL 3.125 MG TAB PO SCH ×2 (05:50→17:02)
[2021-06-04] MEDS: HEPARIN SODIUM,PORCINE/PF 5,000 UNIT/0.5 ML SYRINGE SQ SCH ×2 (08:29→20:49)
[2021-06-04] MEDS: FUROSEMIDE 10 MG/ML 4 ML VIAL IV SCH (08:29)
[2021-06-04] MEDS: FERROUS SULFATE 325 MG TAB PO SCH ×2 (08:30→17:02)
[2021-06-04] MEDS: MAGNESIUM OXIDE 400 MG TAB PO SCH (08:30)
[2021-06-04] MEDS: ASPIRIN 81 MG PO SCH (08:30)
[2021-06-04] MEDS: FAMOTIDINE 20 MG TAB PO SCH (08:30)
[2021-06-04] MEDS: CLOPIDOGREL 75 MG TAB PO SCH (08:30)
[2021-06-04] MEDS: SACUBITRIL/VALSARTAN 24 MG-26 MG TABLET PO SCH ×2 (08:30→20:48)
[2021-06-04] MEDS: glipiZIDE 5 MG TAB PO SCH (08:30)
[2021-06-04] MEDS: SPIRONOLACTONE 25 MG TAB PO SCH (08:30)
[2021-06-04] MEDS: ATORVASTATIN 20 MG TAB PO SCH (08:30)
[2021-06-04] MEDS: ISOSORBIDE MONONITRATE ER 30 MG TAB.ER.24H PO SCH (08:30)
[2021-06-04] MEDS ORDERED: ASPIRIN 81 MG PO SCH (09:00)
[2021-06-04 10:35] LABS: Calcium 9.2 mg/dL (8.4-10.2); Magnesium 1.9 mg/dL (1.6-2.3); Potassium 5.3 mmol/L (3.5-5.1)
[2021-06-04 11:12] LABS: Appearance,Urine Clear (Clear); Bilirubin,Urine Negative (Negative); Blood,Urine Negative (Negative); Color,Urine Yellow; Glucose,Urine (UA) Negative (Negative); Ketones,Urine Negative (Negative); Leukocyte Esterase,Urine Negative (Negative); Nitrite,Urine Negative (Negative); PH, Urine 5.5 (5.0-8.0); Protein,Urine Negative (Negative); Specific Gravity,Urine 1.011 (1.001-1.035); Urobilinogen,Urine <2.0 mg/dL (<2.0)
[2021-06-04 11:33] LABS: Glucose,Whole Blood 190 mg/dL (75-99)
--- NOTE | 2021-06-04 13:33 | P.PN ---
Subjective Progress Note Date: 06/04/21 The patient was interviewed and examined lying comfortably in bed. She states she still has some shortness of breath and congestion. Positive for cough. No chest pain or chest pressure. She denies any dizziness and lightheadedness, however she has not been up to the chair yet this morning. GENERAL: Well-appearing, well-nourished and in no acute distress. NECK: Supple without JVD or thyromegaly. LUNGS: Rhonchorous breath sounds bilaterally. No crackles or wheezes.. Respiration equal and unlabored. HEART: Regular rate and rhythm without murmurs, rubs or gallops. S1 and S2 heard. EXTREMITIES: Normal range of motion, no edema. No clubbing or cyanosis. Peripheral pulses intact and strong. VITALS: Blood pressure 120/58, pulse 64, respiratory rate 18, SpO2 96% on TELEMETRY: Sinus mechanism. No arrhythmias overnight LABS: Sodium 128, potassium 5.3, BUN 39, creatinine 0.97 IMPRESSION: Congestive heart failure, systolic, continue furosemide 40 mg IV daily Ischemic cardiomyopathy, status post AICD Coronary artery Diabetes mellitus PLAN: Reduce IV Lasix to once daily Recommend pulmonary hygiene Encourage ambulation Further recommendations to be based on clinical course The patient has been seen and evaluated by nurse practitioner and coordinating physician. Plan of care has been reviewed and agreed upon by Dr Hutchinson. Objective - Vital Signs Vital signs: Vital Signs Temp 98.1 F 06/04/21 08:38 Pulse 64 06/04/21 12:00 Resp 18 06/04/21 12:00 BP 120/58 06/04/21 12:00 Pulse Ox 96 06/04/21 12:00 Intake & Output 06/03/21 06/04/21 06/04/21 18:59 06:59 18:59 Intake Total 960 Output Total 500 830 Balance -500 -830 960 Weight 61.235 kg 62 kg Intake: Oral 960 Output: Urine 500 800 Emesis 30 Other: Voiding Method External Catheter # Emeses 1 - Labs CBC & Chem 7: 06/03/21 07:45 06/04/21 08:44 Labs: Abnormal Lab Results - Last 24 Hours (Table) 06/03/21 06/03/21 06/04/21 Range/Units 07:45 20:19 05:16 Sodium (137-145) mmol/L Potassium (3.5-5.1) mmol/L Chloride (98-107) mmol/L BUN (7-17) mg/dL Glucose (74-99) mg/dL POC Glucose (mg/dL) 285 H 131 H (75-99) mg/dL TSH 8.390 H (0.465-4.680) mIU/L 06/04/21 06/04/21 Range/Units 08:44 11:32 Sodium 128 L (137-145) mmol/L Potassium 5.3 H (3.5-5.1) mmol/L Chloride 94 L (98-107) mmol/L BUN 39 H (7-17) mg/dL Glucose 130 H (74-99) mg/dL POC Glucose (mg/dL) 190 H (75-99) mg/dL TSH (0.465-4.680) mIU/L Microbiology - Last 24 Hours (Table) 06/03/21 07:45 Blood Culture - Preliminary Blood No Growth after 24 hours 06/03/21 07:40 Blood Culture - Preliminary Blood No Growth after 24 hours
--- NOTE | 2021-06-04 15:42 | P.PN ---
Subjective This is a pleasant 81 years old female with past medical history of Coronary Artery Disease status post CABG and AICD and stents. , Heart Failure, Diabetes Mellitus, Hypertension, Chronic L calf wound/WCC, NIDM type II, neuropathy L foot/leg, cardiomyopathy, mild cognitive impairment, incontinence, iron anemia, hypmagnesemia Patient has some memory difficulty and information updated with the help of the daughter at bedside. [facility] left-sided chest pain that started a few days ago or yesterday but patient could not remember radiating to the left shoulder about 8/10 in severity T felt like pressure for the last 2 days She denies dyspnea about she has some coughing with clear to yellow phlegm. As per daughter she underwent debridement of her chronic left leg wound about 2 days ago. Vitas looks stable. Labs showing unremarkable CBC INR is 1.2 Sodium 1:30 Creatinine 0.8 Liver enzymes are unremarkable Troponin are -0.017 0.015, proBNP is elevated 9380 and 6550 TSH is elevated at 8.3 with normal free T3 at 1.6. Coronavirus not detected. Urine analysis is not suspicious of infection Cardiology were consulted who added Coreg 3.125, and entresto , Lipitor and Plavix Echocardiogram from 02/2021 showed ejection fraction of 20-25% 06/04/2021 Patient is awake, looks comfortable. Denies chest pain and no much dyspnea while she is lying in bed most of the time. Her harsh breath sounds on examination looks better compared to yesterday. Patient has good urine output Labs showing sodium came down with 30 down to 128, potassium 5.3. Patient dose of IV Lasix lower to from 40 mg twice daily down to once daily, she kept on Coreg, and entrestoa, Lipitor and Aldactone 12.5 mg was added today. Also patient is kept on aspirin which is home dose but added Plavix to 8. Echocardiogram is pending Objective - Vital Signs Vital signs: Vital Signs Temp 98.1 F 06/04/21 08:38 Pulse 74 06/04/21 08:38 Resp 17 06/04/21 08:38 BP 115/72 06/04/21 08:38 Pulse Ox 98 06/04/21 08:38 Intake & Output 06/03/21 06/04/21 06/04/21 18:59 06:59 18:59 Intake Total 480 Output Total 500 830 Balance -500 -830 480 Weight 61.235 kg 62 kg Intake: Oral 480 Output: Urine 500 800 Emesis 30 Other: Voiding Method External Catheter # Emeses 1 - Exam GENERAL: The patient is alert and oriented x3, not in any acute distress. Well developed, well nourished. HEENT: Pupils are round and equally reacting to light. EOMI. No scleral icterus. No conjunctival pallor. Normocephalic, atraumatic. No pharyngeal erythema. No thyromegaly. CARDIOVASCULAR: S1 and S2 present. No murmurs, rubs, or gallops. -PULMONARY: Chest is clear to auscultation, no wheezing or crackles. Bilateral harsh breath sounds ABDOMEN: Soft, nontender, nondistended, normoactive bowel sounds. No palpable organomegaly. MUSCULOSKELETAL: No joint swelling or deformity. EXTREMITIES: No cyanosis, clubbing, or pedal edema. NEUROLOGICAL: Gross neurological examination did not reveal any focal deficits. SKIN: No rashes. No petechiae - Labs CBC & Chem 7: 06/03/21 07:45 06/04/21 08:44 Labs: Abnormal Lab Results - Last 24 Hours (Table) 06/03/21 06/03/21 06/04/21 Range/Units 07:45 20:19 05:16 Sodium (137-145) mmol/L Potassium (3.5-5.1) mmol/L Chloride (98-107) mmol/L BUN (7-17) mg/dL Glucose (74-99) mg/dL POC Glucose (mg/dL) 285 H 131 H (75-99) mg/dL TSH 8.390 H (0.465-4.680) mIU/L 06/04/21 Range/Units 08:44 Sodium 128 L (137-145) mmol/L Potassium 5.3 H (3.5-5.1) mmol/L Chloride 94 L (98-107) mmol/L BUN 39 H (7-17) mg/dL Glucose 130 H (74-99) mg/dL POC Glucose (mg/dL) (75-99) mg/dL TSH (0.465-4.680) mIU/L Microbiology - Last 24 Hours (Table) 06/03/21 07:45 Blood Culture - Preliminary Blood No Growth after 24 hours 06/03/21 07:40 Blood Culture - Preliminary Blood No Growth after 24 hours Assessment and Plan Assessment: Acute on chronic systolic congestive heart failure, with ejection fraction 20-25 % History of coronary artery disease status post CABG, stents and AICD Type 2 diabetes mellitus and diabetic neuropathy Hypertension Chronic left calf wound status post debridement and wound VAC. Cognitive impairment Urine incontinence History of iron deficiency anemia Plan: This is a pleasant 81 years old female who presents with chest pain and acute CHF. No do serial troponins Cartilage consult continue with IV Lasix once a day Continue with Coreg, Plavix, Lipitor and entresto Follow-up echocardiogram Consults infectious disease team for left leg wound Labs and medication were reviewed.. Continue same treatment. Continue with symptomatic treatment. Resume home medication. Monitor lytes and vitals. DVT and GI prophylaxis. Further recommendations depends on the clinical course of the patient DVT prophylaxis: Subcutaneous heparin GI Prophylaxis: Pepcid PT/OT: Pending Prognosis is guarded
[2021-06-04 16:45] LABS: Glucose,Whole Blood 231 mg/dL (75-99)
[2021-06-04 20:37] LABS: Glucose,Whole Blood 241 mg/dL (75-99)
[2021-06-04] MEDS: DONEPEZIL 10 MG TAB PO SCH (20:49)
--- NOTE | 2021-06-04 21:08 | P.CONS ---
History of Present Illness - Reason for Consult Consult date: 06/04/21 left leg wound Requesting physician: Matthew E Sheet - Chief Complaint shortness of breath and leg swelling x days - History of Present Illness History of present illness : Patient is 81-year female with a past medical history significant for a extensive left leg wound s/p debridement with a tendon exposed culture positive for multiple times including MRSA Pseudomonas and stenotrophomonas for the patient has concurrent right therapy patient is currently [facility] with a local wound care provided by Dr. Dumont, patient has been brought to the hospital yesterday morning for evaluation of increasing shortness of breath complaining of more edema in her right leg and apparently the patient did have elevated BNP in the outpatient setting patient denies having any chest pain he did have some congested cough but not bringing up any sputum no nausea vomiting no abdominal pain no diarrhea is being on the Clinic and pain in the left leg with the current local wound care has been wound VAC patient on presentation to the hospital was afebrile patient was not hypoxic or need for supplemental oxygen patient did have normal white count with no left shift creatinine was normal WAS 1.118 urine is negative person PCR was negative patient did have a chest x-ray mild cardiomegaly with mild cephalization pulmonary discretion consistent with CHF infectious disease was consulted regarding her left leg wound Review of system: CONSTITUTIONAL: Positive for weakness denies high-grade fever. EYES: No complaint. ENT: No complaint. RESPIRATORY: As per history of present illness. CARDIOVASCULAR: No complaint. GENITOURINARY: No complaint. GASTROINTESTINAL: No complaint. MUSCULOSKELETAL: As per history of present illness. INTEGUMENTARY: No complaint. PSYCHOLOGIC: No complaint. ENDOCRINE: No complaint. NEUROLOGIC: No complaint. Past medical history : Reviewed, documented below Past surgical history : Reviewed, documented below Social history: Reviewed, documented below Medications: Reviewed, as documented below EXAMINATION: Vital sigans= Reviewed and documented below GENERAL DESCRIPTION: Elderly female lying in bed, no distress. No tachypnea or accessory muscle of respiration use. HEENT: Shows Pallor , no scleral icterus. Oral mucous membrane is dry. NECK: Trachea central, no thyromegaly. LUNGS: Unlabored breathing. Decreased visible in the base. No wheeze or crackle. HEART: S1, S2, regular rate and rhythm. ABDOMEN: Soft, no tenderness , guarding or rigidity EXTREMITIES: Left leg wound is currently covered with a wound VAC SKIN: No rash, no masses palpable. NEUROLOGICAL: The patient is awake, alert, oriented x3, mood and affect normal. LABS AND RADIOLOGY: Reviewed results see below Assessment : 1patient presented to hospital with increasing shortness of breath increased swelling right lower extremity with elevated proBNP likely related to underlying CHF exacerbation clinically behaving as pneumonia. 2patient with left leg wound postsurgical currently being treated with wound VAC with no surrounding redness no fever or elevated white count clinic suspicion low for secondary bacterial infection Plan: 1-recommend to continue current wound care to left leg with a wound VAC continuous pressure 125 millimeters of mercury change Saturday 2-no need for systemic antibiotic therapy We will follow on clinical condition and cultures to further adjust medication if needed Thank you for this consultation we will follow the patient along with you Past Medical History Past Medical History: Coronary Artery Disease (CAD), Heart Failure, Diabetes Mellitus, Hypertension, Myocardial Infarction ([place]), Pneumonia, Vascular Disorder Additional Past Medical History / Comment(s): Pt recently admitted to [facility] on 03/14/21 with CHF/L pleural effusion. Other hx: Chronic L calf wound/WCC, NIDM type II, neuropathy L foot/leg, cardiomyopathy/sees Dr Knight in [place], MIs, mild cognitive impairment, incontinence, iron anemia, hypmagnesemia Last Myocardial Infarction Date:: unsure History of Any Multi-Drug Resistant Organisms: MRSA Year Discovered:: 04/20/21 MDRO Source:: Left Leg Past Surgical History: AICD, Bladder Surgery, Coronary Bypass/CABG, Heart Catheterization, Heart Catheterization With Stent, Hysterectomy, Joint Replacement, Pacemaker Additional Past Surgical History / Comment(s): 10/2020 AICD/pacer, PCI stents, 2010 CABG 3 vessel, L leg wound I&D, bkadder suspension, ovarian cyst removal, D&C, rectocele, colonoscopy, total r knee arthroplasty. Past Anesthesia/Blood Transfusion Reactions: No Reported Reaction Date of Last Stent Placement:: unknown Type of Cardiac Device: AICD Device Placement Date:: 2020 Past Psychological History: No Psychological Hx Reported Additional Psychological History / Comment(s): pt from [facility]. Pt is a retired nurse. Smoking Status: Never smoker Past Alcohol Use History: None Reported Past Drug Use History: None Reported - Past Family History Father Family Medical History: No Reported History Additional Family Medical History / Comment(s): Father had heart problems. He chewed tobacco, smoked and drank quit a bit of alcohol. Mother Family Medical History: Diabetes Mellitus Medications and Allergies Home Medications Medication Instructions Recorded Confirmed Type Aspirin EC [Ecotrin Low Dose] 81 mg PO DAILY@0800 03/14/21 06/03/21 History Atorvastatin [Lipitor] 20 mg PO HS@2100 03/14/21 06/03/21 History Clopidogrel [Plavix] 75 mg PO DAILY@0800 03/14/21 06/03/21 History Donepezil [Aricept] 10 mg PO HS@2100 03/14/21 06/03/21 History Isosorbide Mononitrate ER [Imdur] 30 mg PO DAILY@0800 03/14/21 06/03/21 History Magnesium Oxide 400 mg PO DAILY@0800 03/14/21 06/03/21 History glipiZIDE [Glucotrol] 5 mg PO DAILY@0800 03/14/21 06/03/21 History Benzocaine/Menthol [Dermoplast 1 spray TOPICAL BID PRN 04/16/21 06/03/21 History Pain Relieving [place]] Ferrous Sulfate [Iron (65 MG 325 mg PO BID@0800,1700 04/16/21 06/03/21 History Elemental)] Acetaminophen Tab [Tylenol] 650 mg PO Q6HR PRN tab 04/28/21 06/03/21 Rx carvediloL [Coreg] 6.25 mg PO BID@0900,2100 tab 04/28/21 06/03/21 Rx Bumetanide [Bumex] 1 mg PO DAILY@0800 05/07/21 06/03/21 History Ensure Enlive 120 ml PO BID@0800,1700 05/07/21 06/03/21 History Famotidine [Pepcid] 20 mg PO DAILY@0800 05/07/21 06/03/21 History Heparin Sodium,Porcine [Heparin 5,000 unit SQ BID@0800,2100 05/07/21 06/03/21 History Sodium] INSULIN ASPART (NovoLOG) [NovoLOG See Protocol SQ ACHS 05/07/21 06/03/21 History (formulary)] L.acidoph,Paracasei, B.lactis 1 cap PO DAILY@0800 05/07/21 06/03/21 History [Probiotic] Magnesium Hydroxide [Milk of 2,400 mg PO DAILY PRN 05/07/21 06/03/21 History Magnesia] Melatonin 3 mg PO DAILY PRN 05/07/21 06/03/21 History Na Phos,M-B/Na Phos,Di-Ba [Fleet 133 ml RECTAL DAILY PRN 05/07/21 06/03/21 Hi story Adult] Ondansetron [Zofran] 4 mg PO TID PRN 05/07/21 06/03/21 History Spironolactone [Aldactone] 12.5 mg PO DAILY@0800 05/07/21 06/03/21 History bisacodyL [Dulcolax] 10 mg RECTAL DAILY PRN 05/07/21 06/03/21 History ALPRAZolam [Xanax] 0.25 mg PO BID PRN 06/03/21 06/03/21 History HYDROcodone/APAP 5-325MG [[place] 1 tab PO Q6H PRN 06/03/21 06/03/21 History 5-325] Lidocaine 5% Cream 1 applic TOPICAL WE@0800 06/03/21 06/03/21 History Lidocaine 5% Cream 1 applic TOPICAL DAILY PRN 06/03/21 06/03/21 History Nystatin 100,000Unit/gm Cream 1 applic TOPICAL BID 06/03/21 06/03/21 History [Mycostatin Cream] Allergies Allergy/AdvReac Type Severity Reaction Status Date / Time Sulfa (Sulfonamide Allergy Anaphylaxis Verified 06/03/21 07:48 Antibiotics) Physical Exam Vitals: Vital Signs Temp Pulse Pulse Resp BP BP Pulse Ox 06/04/21 12:00 64 18 120/58 96 06/04/21 08:38 98.1 F 74 17 115/72 98 06/04/21 08:00 74 17 06/04/21 04:00 70 16 128/67 97 06/04/21 02:00 76 16 06/04/21 00:00 97.6 F 76 16 134/71 96 06/03/21 20:00 97.8 F 80 18 122/74 98 06/03/21 18:44 97 F L 65 16 141/73 98 06/03/21 18:36 97.7 F 65 16 141/73 98 06/03/21 17:23 67 18 131/66 96 06/03/21 14:31 70 18 118/70 99 Intake and Output 06/03/21 06/04/21 06/04/21 22:59 06:59 14:59 Intake Total 960 Output Total 500 830 Balance -500 -830 960 Intake: Oral 960 Output: Urine 500 800 Emesis 30 Other: Voiding Method External Catheter # Emeses 1 Weight 61.235 kg 62 kg Results CBC & Chem 7: 06/03/21 07:45 06/04/21 08:44 Labs: Abnormal Lab Results - Last 24 Hours (Table) 06/03/21 06/03/21 06/04/21 Range/Units 07:45 20:19 05:16 Sodium (137-145) mmol/L Potassium (3.5-5.1) mmol/L Chloride (98-107) mmol/L BUN (7-17) mg/dL Glucose (74-99) mg/dL POC Glucose (mg/dL) 285 H 131 H (75-99) mg/dL TSH 8.390 H (0.465-4.680) mIU/L 06/04/21 06/04/21 Range/Units 08:44 11:32 Sodium 128 L (137-145) mmol/L Potassium 5.3 H (3.5-5.1) mmol/L Chloride 94 L (98-107) mmol/L BUN 39 H (7-17) mg/dL Glucose 130 H (74-99) mg/dL POC Glucose (mg/dL) 190 H (75-99) mg/dL TSH (0.465-4.680) mIU/L Microbiology - Last 24 Hours (Table) 06/03/21 07:45 Blood Culture - Preliminary Blood No Growth after 24 hours 06/03/21 07:40 Blood Culture - Preliminary Blood No Growth after 24 hours
[2021-06-05] MEDS: HYDROmorphone 0.5 MG/0.5 ML SYRINGE IVP PRN (01:43)
[2021-06-05 04:41] VITALS: RESP 18
[2021-06-05] MEDS: HYDROcodone/APAP 5-325MG 1 EACH TAB PO PRN ×2 (06:16→09:15)
[2021-06-05] MEDS: carvediloL 3.125 MG TAB PO SCH (06:16)
[2021-06-05] MEDS: INSULIN ASPART (NovoLOG) 100 UNIT/ML VIAL SQ SCH ×2 (06:20→12:22)
[2021-06-05 07:03] LABS: Glucose,Whole Blood 141 mg/dL (75-99)
[2021-06-05] MEDS ORDERED: FUROSEMIDE 10 MG/ML 4 ML VIAL IV SCH (09:00)
[2021-06-05] MEDS: HEPARIN SODIUM,PORCINE/PF 5,000 UNIT/0.5 ML SYRINGE SQ SCH (09:09)
[2021-06-05] MEDS: ASPIRIN 81 MG PO SCH (09:10)
[2021-06-05] MEDS: CLOPIDOGREL 75 MG TAB PO SCH (09:10)
[2021-06-05] MEDS: FERROUS SULFATE 325 MG TAB PO SCH (09:10)
[2021-06-05] MEDS: SACUBITRIL/VALSARTAN 24 MG-26 MG TABLET PO SCH (09:10)
[2021-06-05] MEDS: glipiZIDE 5 MG TAB PO SCH (09:10)
[2021-06-05] MEDS: MAGNESIUM OXIDE 400 MG TAB PO SCH (09:10)
[2021-06-05] MEDS: ATORVASTATIN 20 MG TAB PO SCH (09:10)
[2021-06-05] MEDS: SPIRONOLACTONE 25 MG TAB PO SCH (09:10)
[2021-06-05] MEDS: FAMOTIDINE 20 MG TAB PO SCH (09:10)
[2021-06-05] MEDS: ISOSORBIDE MONONITRATE ER 30 MG TAB.ER.24H PO SCH (09:10)
[2021-06-05 10:20] LABS: Calcium 8.4 mg/dL (8.4-10.2); Magnesium 1.9 mg/dL (1.6-2.3); Potassium 4.3 mmol/L (3.5-5.1)
[2021-06-05 11:57] LABS: Glucose,Whole Blood 169 mg/dL (75-99)
--- NOTE | 2021-06-05 12:41 | P.DS ---
Providers Date of admission: 06/03/21 09:13 Attending physician: Matthew Stout MD Consults: 06/03/21 09:25 Consult Physician Routine Consulting Provider: [facility] Consult Reason/Comments: Pulmonary edema Do you want consulting provider notified?: Yes 06/03/21 21:43 Consult Physician Urgent Consulting Provider: Kate Oliver Consult Reason/Comments: Left leg wound Do you want consulting provider notified?: Yes, Notify in am Primary care physician: Faraz Loza Hospital Course: Diagnoses: Acute on chronic systolic congestive heart failure, with ejection fraction 20- 25% History of coronary artery disease status post CABG, stents and AICD Type 2 diabetes mellitus and diabetic neuropathy Hypertension mild hypervolemic hyponatremia, stable Chronic left calf wound status post debridement and wound VAC. Cognitive impairment Urine incontinence History of iron deficiency anemia Hospital course: This is a pleasant 81 years old female with past medical history of Coronary Artery Disease status post CABG and AICD and stents. , Heart Failure, Diabetes Mellitus, Hypertension, Chronic L calf wound/WCC, NIDM type II, neuropathy L foot/leg, cardiomyopathy, mild cognitive impairment, incontinence, iron anemia, hypmagnesemia Patient has some memory difficulty and information updated with the help of the daughter at bedside. [facility] that started a few days ago . Patient has been evaluated by wharf tender head who added Plavix on the top of her aspirin also Coreg 3.5 mg added as well as spironolactone 12.5 mg and entresto, patient chest pain improved on for the last 48 hours she was chest pain-free Also her dyspnea improved with IV Lasix 40 mg twice daily switched to once daily yesterday. Also infectious disease team evaluated the patient for her left leg wound and recommended to continue with wound VAC and supportive treatment, no need for systemic antibiotics Patient is back to her baseline and on the day of discharge she denies chest pain or dyspnea or coughing. No change in urine or bowel habits. No fever. No diarrhea or vomiting. Patient was cleared for discharge by cardiology team Problems and management plan were discussed with the patient and he verbalized understanding and acceptance Patient was found stable and can be discharged ECF and guarded prognosis however he needs follow-up as an outpatient. Patient was instructed to follow up with PCP within one week and patient agrees Patient was instructed to follow up with her wharf tender head Dr. Lundberg in 1-2 weeks and she agrees Physical exam Gen: patient is a AAOx3, no distress CVS: S1-S2, RRR, no murmur Lungs: B/L CTA, no wheezing Abdomen: soft, no distention, no tenderness, positive bowel sounds Extremity: no leg edema or induration. Left leg cuff wound with wound VAC is in place Time spent more than 35 minutes Plan - Discharge Summary Discharge Rx Participant: No New Discharge Prescriptions: No Action Clopidogrel [Plavix] 75 mg PO DAILY@0800 Aspirin EC [Ecotrin Low Dose] 81 mg PO DAILY@0800 Donepezil [Aricept] 10 mg PO HS@2100 Benzocaine/Menthol [Dermoplast Pain Relieving [place]] 1 spray TOPICAL BID PRN PRN Reason: LEFT LEG WOUND PAIN Ensure Enlive 120 ml PO BID@0800,1700 bisacodyL [Dulcolax] 10 mg RECTAL DAILY PRN PRN Reason: Constipation Famotidine [Pepcid] 20 mg PO DAILY@0800 INSULIN ASPART (NovoLOG) [NovoLOG (formulary)] See Protocol SQ ACHS L.acidoph,Paracasei, B.lactis [Probiotic] 1 cap PO DAILY@0800 Magnesium Hydroxide [Milk of Magnesia] 2,400 mg PO DAILY PRN PRN Reason: Constipation Melatonin 3 mg PO DAILY PRN PRN Reason: Insomnia Na Phos,M-B/Na Phos,Di-Ba [Fleet Adult] 133 ml RECTAL DAILY PRN PRN Reason: Constipation Spironolactone [Aldactone] 12.5 mg PO DAILY@0800 HYDROcodone/APAP 5-325MG [[place] 5-325] 1 tab PO Q6H PRN PRN Reason: Pain Magnesium Oxide 400 mg PO DAILY@0800 Atorvastatin [Lipitor] 20 mg PO HS@2100 glipiZIDE [Glucotrol] 5 mg PO DAILY@0800 Isosorbide Mononitrate ER [Imdur] 30 mg PO DAILY@0800 Ferrous Sulfate [Iron (65 MG Elemental)] 325 mg PO BID@0800,1700 carvediloL [Coreg] 6.25 mg PO BID@0900,2100 tab Acetaminophen Tab [Tylenol] 650 mg PO Q6HR PRN tab PRN Reason: Mild Pain Or Fever > 100.5 Bumetanide [Bumex] 1 mg PO DAILY@0800 Heparin Sodium,Porcine [Heparin Sodium] 5,000 unit SQ BID@0800,2100 Ondansetron [Zofran] 4 mg PO TID PRN PRN Reason: Nausea ALPRAZolam [Xanax] 0.25 mg PO BID PRN PRN Reason: Anxiety Lidocaine 5% Cream 1 applic TOPICAL DAILY PRN PRN Reason: WOUND PAIN Nystatin 100,000Unit/gm Cream [Mycostatin Cream] 1 applic TOPICAL BID Lidocaine 5% Cream 1 applic TOPICAL WE@0800 Discharge Medication List Aspirin EC [Ecotrin Low Dose] 81 mg PO DAILY@0803/14/21 [History] Atorvastatin [Lipitor] 20 mg PO HS@209903/14/21 [History] Clopidogrel [Plavix] 75 mg PO DAILY@0803/14/21 [History] Donepezil [Aricept] 10 mg PO HS@209903/14/21 [History] Isosorbide Mononitrate ER [Imdur] 30 mg PO DAILY@79903/14/21 [History] Magnesium Oxide 400 mg PO DAILY@0803/14/21 [History] glipiZIDE [Glucotrol] 5 mg PO DAILY@0803/14/21 [History] Benzocaine/Menthol [Dermoplast Pain Relieving [place]] 1 spray TOPICAL BID PRN 04/16/21 [History] Ferrous Sulfate [Iron (65 MG Elemental)] 325 mg PO BID@0800,1700 04/16/21 [History] Acetaminophen Tab [Tylenol] 650 mg PO Q6HR PRN tab 04/28/21 [Rx] carvediloL [Coreg] 6.25 mg PO BID@0900,2100 tab 04/28/21 [Rx] Bumetanide [Bumex] 1 mg PO DAILY@0800 05/07/21 [History] Ensure Enlive 120 ml PO BID@0800,1700 05/07/21 [History] Famotidine [Pepcid] 20 mg PO DAILY@0800 05/07/21 [History] Heparin Sodium,Porcine [Heparin Sodium] 5,000 unit SQ BID@0800,2100 05/07/21 [History] INSULIN ASPART (NovoLOG) [NovoLOG (formulary)] See Protocol SQ ACHS 05/07/21 [History] L.acidoph,Paracasei, B.lactis [Probiotic] 1 cap PO DAILY@0800 05/07/21 [History] Magnesium Hydroxide [Milk of Magnesia] 2,400 mg PO DAILY PRN 05/07/21 [History] Melatonin 3 mg PO DAILY PRN 05/07/21 [History] Na Phos,M-B/Na Phos,Di-Ba [Fleet Adult] 133 ml RECTAL DAILY PRN 05/07/21 [History] Ondansetron [Zofran] 4 mg PO TID PRN 05/07/21 [History] Spironolactone [Aldactone] 12.5 mg PO DAILY@0800 05/07/21 [History] bisacodyL [Dulcolax] 10 mg RECTAL DAILY PRN 05/07/21 [History] ALPRAZolam [Xanax] 0.25 mg PO BID PRN 06/03/21 [History] HYDROcodone/APAP 5-325MG [[place] 5-325] 1 tab PO Q6H PRN 06/03/21 [History] Lidocaine 5% Cream 1 applic TOPICAL WE@0800 06/03/21 [History] Lidocaine 5% Cream 1 applic TOPICAL DAILY PRN 06/03/21 [History] Nystatin 100,000Unit/gm Cream [Mycostatin Cream] 1 applic TOPICAL BID 06/03/21 [History] Follow up Appointment(s)/Referral(s): Faraz Loza MD [Primary Care Provider] - 1-2 days
[2021-06-05 12:44] VITALS: BP 113/68; PULSE 63; TEMP 97.4
--- NOTE | 2021-06-05 12:45 | ECHOF ---
Referral Reason:chf MEASUREMENTS -------- HEIGHT: 154.9 cm WEIGHT: 61.7 kg BP: 122/62 RVIDd: 4.7 cm (< 3.3) AR PHT: 517 ms RAP: 5.00 mmHg RVSP: 42.93 mmHg FINDINGS -------- Paced rhythm. Limited Study Overall left ventricular systolic function is severely impaired with, an EF between 20 - 25 %. The right ventricle is severely enlarged. There is mild aortic valve sclerosis. There is mild aortic regurgitation. The mitral valve leaflets are mildly thickened. Moderate mitral regurgitation is present. Severe tricuspid regurgitation present. There is mild pulmonary hypertension. The right ventricul ar systolic pressure, as measured by Doppler, is 42.93mmHg. Moderate pulmonic regurgitation. There is no pericardial effusion. CONCLUSIONS -------- 1. Paced rhythm. 2. Limited Study 3. Overall left ventricular systolic function is severely impaired with, an EF between 20 - 25 %. 4. The right ventricle is severely enlarged. 5. There is mild aortic valve sclerosis. 6. There is mild aortic regurgitation. 7. The mitral valve leaflets are mildly thickened. 8. Moderate mitral regurgitation is present. 9. Severe tricuspid regurgitation present. 10. There is mild pulmonary hypertension. 11. The right ventricular systolic pressure, as measured by Doppler, is 42.93mmHg. 12. Moderate pulmonic regurgitation. 13. There is no pericardial effusion. RESTAURANT SHIFT LEADER: Kathy Villela RD
--- NOTE | 2021-06-05 13:55 | P.PN ---
Subjective This is a 81 year old female with a past medical history significant for coronary artery disease with previous CABG, cardiomyopathy, BiV AICD implant ation in November 2020, congestive heart failure, hypertension, and hyperlipidemia. Patient follows with a log truck driver in [place], Dr. Kapadia. We have been asked to see the patient in consultation congestive heart failure. Patient presented to the hospital with shortness of breath and diagnosed with congestive heart failure. The patient was interviewed and examined lying comfortably in bed. Her breathing has much improved. No chest pain or chest pressure. She denies any dizziness and lightheadedness. Her vital signs are stable. Urinating well. 1.3L urine output. Labs reviewed, sodium 129, potassium 4.3, BUN 37, serum creatinine 0.9, magnesium 1.9 Patient's maintained on aspirin 81 daily, atorvastatin 21 g daily, Lasix 40 mg. He, carvedilol 3.125 mg twice a day, Plavix 75 mg daily, Imdur 30 mg daily, and Entresto 24 mg26 mg twice a day, spironolactone 12.5 mg daily GENERAL: Well-appearing, well-nourished and in no acute distress. NECK: Supple without JVD or thyromegaly. LUNGS: Lungs are clear right. Mild crackles in the left lower base. Respiration equal and unlabored. HEART: Regular rate and rhythm without murmurs, rubs or gallops. S1 and S2 heard. EXTREMITIES: Normal range of motion, no edema. No clubbing or cyanosis. Peripheral pulses intact and strong. TELEMETRY: Sinus mechanism. No arrhythmias overnight IMPRESSION: Congestive heart failure, systolic, continue Ischemic cardiomyopathy, status post AICD Coronary artery disease s/p previous CABG Diabetes mellitus History of hypertension Hyperlipidemia PLAN: Discontinue IV Lasix Resume patient's Bumex Continue home cardiac medications. Encourage ambulation From a cardiology perspective, ok to be discharged home. Follow up with Dr. Kapadia in 1-2 weeks The patient has been seen and evaluated by nurse practitioner and coordinating physician. Objective - Vital Signs Vital signs: Vital Signs Temp 97.4 F L 06/05/21 12:00 Pulse 63 06/05/21 12:00 Resp 18 06/05/21 12:00 BP 113/68 06/05/21 12:00 Pulse Ox 96 06/05/21 12:00 Intake & Output 06/04/21 06/05/21 06/05/21 18:59 06:59 18:59 Intake Total 1200 175 Output Total 400 Balance 800 175 Intake: Oral 1200 175 Output: Urine 400 Other: Voiding Method External Catheter External Catheter External Catheter - Labs CBC & Chem 7: 06/03/21 07:45 06/05/21 09:08 Labs: Abnormal Lab Results - Last 24 Hours (Table) 06/04/21 06/04/21 06/04/21 Range/Units 08:44 16:43 19:35 Sodium (137-145) mmol/L Chloride (98-107) mmol/L BUN (7-17) mg/dL Glucose (74-99) mg/dL POC Glucose (mg/dL) 231 H 241 H (75-99) mg/dL Procalcitonin 1.18 H (0.02-0.09) ng/mL 06/05/21 06/05/21 06/05/21 Range/Units 06:19 09:08 11:50 Sodium 128 L (137-145) mmol/L Chloride 95 L (98-107) mmol/L BUN 37 H (7-17) mg/dL Glucose 161 H (74-99) mg/dL POC Glucose (mg/dL) 141 H 169 H (75-99) mg/dL Procalcitonin (0.02-0.09) ng/mL Microbiology - Last 24 Hours (Table) 06/03/21 07:45 Blood Culture - Preliminary Blood No Growth after 48 hours 06/03/21 07:40 Blood Culture - Preliminary Blood No Growth after 48 hours
[2021-06-05 14:25] VITALS: BMI 25.8
--- NOTE | 2021-06-05 22:33 | P.PN ---
Progress Note - Text Progress Note Date: 06/05/21 REASON FOR FOLLOWUP: . Left leg wound INTERVAL HISTORY: The patient is afebrile. The patient is feeling better, the patient is breathing comfortably. No chest pain, shortness of breath or cough. No abdominal pain or diarrhea. Pain to the left leg wound is currently controlled PHYSICAL EXAMINATION: On examination, blood pressure 110/60 with a pulse of 90, temperature 97.9. She is 97% on room air. GENERAL DESCRIPTION: General description is an elderly female lying in bed in no distress. RESPIRATORY SYSTEM: Unlabored breathing. Decreased breath sounds at the bases. No wheeze. HEART: S1, S2. Regular rate and rhythm. ABDOMEN: Soft. No tenderness. EXTREMITIES: Left leg wound is currently covered with a wound VAC LABS: Reviewed DIAGNOSTIC IMPRESSION AND PLAN: Patient with a chronic nonhealing wound to the left leg in this patient admitted to hospital for possible fluid overload/CHF exacerbation no evidence of any wound infection with no fever elevated white count local care to continue with the wound VAC to be changed Saturday and a close outpatient follow-up
[2021-06-06] MEDS ORDERED: BUMETANIDE 1 MG TAB PO SCH (08:00)
== END 2021-06-05 14:39 | DRG 291 ==
LOC: EC 07:03 → 3SCARD 09:13
PROVIDERS: ADMIT Internal Medicine; ATTEND Internal Medicine
DX: I11.0 Hypertensive heart disease with heart failure (principal); I50.23 Acute on chronic systolic (congestive) heart failure; E87.1 Hypo-osmolality and hyponatremia; L97.228 Non-pressure chronic ulcer of left calf with other specified severity; D64.9 Anemia, unspecified; E11.40 Type 2 diabetes mellitus with diabetic neuropathy, unspecified; G31.84 Mild cognitive impairment of uncertain or unknown etiology; I25.5 Ischemic cardiomyopathy; E78.5 Hyperlipidemia, unspecified; I08.1 Rheumatic disorders of both mitral and tricuspid valves; I27.20 Pulmonary hypertension, unspecified; I37.1 Nonrheumatic pulmonary valve insufficiency; I25.10 Atherosclerotic heart disease of native coronary artery without angina pectoris; I25.2 Old myocardial infarction; R32 Unspecified urinary incontinence; Z79.02 Long term (current) use of antithrombotics/antiplatelets; Z79.82 Long term (current) use of aspirin; Z79.84 Long term (current) use of oral hypoglycemic drugs; Z79.899 Other long term (current) drug therapy; Z83.3 Family history of diabetes mellitus; Z90.710 Acquired absence of both cervix and uterus; Z95.1 Presence of aortocoronary bypass graft; Z95.810 Presence of automatic (implantable) cardiac defibrillator; Z96.651 Presence of right artificial knee joint; Z88.2 Allergy status to sulfonamides; Z20.822 Contact with and (suspected) exposure to COVID-19
CPT/HCPCS: 36415; 71046; 80048; 80053; 81003; 83605; 83735; 83880; 84145; 84439; 84443; 84484; 85025; 85610; 85730; 87040; 87635; 93005; 93308; 99291

== ENCOUNTER 2021-10-23 19:39 | Inpatient (IN) | payer MEDICARE ==
[2021-10-23] MEDS ORDERED: SODIUM CHLORIDE 0.9% 500 ML 500 ML IV STA (20:24)
--- NOTE | 2021-10-23 20:32 | ED ---
Neuro HPI - General Stated Complaint: Left hand Weakness Time Seen by Provider: 10/23/21 20:15 Source: patient, family, EMS, RN notes reviewed - History of Present Illness Is the patient presenting with stroke symptoms?: Yes -: unknown Initial Comments: This is a pleasant 81-year-old female who presents emergency with left hand weakness which has been going on for an unknown amount of time. According to long-term staff has been 1 month but according to family who is here with the patient they state that they saw her 1 week ago and she did not have the left hand. Patient also ascertains that she has had worsening memory and confusion for about the past month. She denies any pain or weakness elsewhere. Denies any vertigo. Denies headache. Denies vision or hearing changes. No slurred speech. No numbness or tingling. No headache, no fever or chills, no changes in vision or hearing, no sore throat or difficulty with speech, no neck pain, no chest pain or shortness of breath, no abdominal pain, no nausea or vomiting, no changes in urination or bowel movements, no numbness or tingling, PATIENT does complain of pain to her left heel which is actually chronic. Patient has chronic wounds on both lower extremities and has wound care, no skin rashes or lesions. Location: left arm - Related Data Home Medications: Home Medications Medication Instructions Recorded Confirmed Aspirin EC [Ecotrin Low Dose] 81 mg PO DAILY@0800 03/14/21 10/23/21 Clopidogrel [Plavix] 75 mg PO DAILY@0800 03/14/21 10/23/21 Donepezil [Aricept] 10 mg PO HS@2100 03/14/21 10/23/21 Isosorbide Mononitrate ER [Imdur] 30 mg PO DAILY@0800 03/14/21 10/23/21 Magnesium Oxide 400 mg PO DAILY@0800 03/14/21 10/23/21 glipiZIDE [Glucotrol] 5 mg PO DAILY@0800 03/14/21 10/23/21 Benzocaine/Menthol [Dermoplast 1 spray TOPICAL BID PRN 04/16/21 10/23/21 Pain Relieving [place]] Ferrous Sulfate [Iron (65 MG 325 mg PO BID@0800,1700 04/16/21 10/23/21 Elemental)] Famotidine [Pepcid] 20 mg PO DAILY@0800 05/07/21 10/23/21 INSULIN ASPART (NovoLOG) [NovoLOG See Protocol SQ ACHS 05/07/21 10/23/21 (formulary)] L.acidoph,Paracasei, B.lactis 1 cap PO DAILY@0800 05/07/21 10/23/21 [Probiotic] Magnesium Hydroxide [Milk of 2,400 mg PO DAILY PRN 05/07/21 10/23/21 Magnesia] Melatonin 3 mg PO DAILY PRN 05/07/21 10/23/21 Na Phos,M-B/Na Phos,Di-Ba [Fleet 133 ml RECTAL DAILY PRN 05/07/21 10/23/21 Adult] Ondansetron [Zofran] 4 mg PO TID PRN 05/07/21 10/23/21 Spironolactone [Aldactone] 12.5 mg PO DAILY@0800 05/07/21 10/23/21 bisacodyL [Dulcolax] 10 mg RECTAL DAILY PRN 05/07/21 10/23/21 HYDROcodone/APAP 5-325MG [[place] 1 tab PO Q6H PRN 06/03/21 10/23/21 5-325] Lidocaine 5% Cream 1 applic TOPICAL WE@0806/03/21 10/23/21 Lidocaine 5% Cream 1 applic TOPICAL DAILY PRN 06/03/21 10/23/21 Atorvastatin [Lipitor] 40 mg PO HS@2100 10/23/21 10/23/21 Carvedilol [Coreg] 6.25 mg PO BID@0800,1700 10/23/21 10/23/21 Collagenase [Santyl Ointment] 1 applic TOPICAL DAILY 10/23/21 10/23/21 Dakins(1/2 Strength) Solution 0.25% 1 applic TOPICAL DAILY 10/23/21 10/23/21 Empagliflozin [Jardiance] 10 mg PO DAILY@0800 10/23/21 10/23/21 Furosemide [Lasix] 20 mg PO DAILY@0800 10/23/21 10/23/21 Emmanuel Packet 1 packet PO BID@0800,1700 10/23/21 10/23/21 Moxifloxacin HCl [Avelox] 400 mg PO DAILY@1700 10/23/21 10/23/21 Sacubitril/Valsartan [Entresto 24 1 tab PO BID@0800,1700 10/23/21 10/23/21 mg-26 mg Tablet] Previous Rx's Medication Instructions Recorded Acetaminophen Tab [Tylenol] 650 mg PO Q6HR PRN tab 04/28/21 Allergies/Adverse Reactions: Allergies Allergy/AdvReac Type Severity Reaction Status Date / Time Sulfa (Sulfonamide Allergy Anaphylaxis Verified 10/23/21 21:19 Antibiotics) Review of Systems ROS Statement: Those systems with pertinent positive or pertinent negative responses have been documented in the HPI. ROS Other: All systems not noted in ROS Statement are negative. General Exam - General Exam Comments Initial Comments: Deconditioned elderly female in no acute distress. Patient does not appear to be ill or toxic. General appearance: alert, in no apparent distress Head exam: Present: atraumatic, normocephalic, normal inspection Eye exam: Present: normal appearance, PERRL, EOMI. Absent: scleral icterus, conjunctival injection, periorbital swelling ENT exam: Present: normal exam, normal oropharynx, mucous membranes moist, TM's normal bilaterally, normal external ear exam Neck exam: Present: normal inspection, full ROM. Absent: tenderness, meningismus, lymphadenopathy Respiratory exam: Present: normal lung sounds bilaterally, chest wall tender ness, prolonged expiratory. Absent: respiratory distress, wheezes, rales, rhonchi, stridor Cardiovascular Exam: Present: regular rate, normal rhythm, normal heart sounds. Absent: systolic murmur, diastolic murmur, rubs, gallop, clicks GI/Abdominal exam: Present: soft, normal bowel sounds. Absent: distended, tenderness, guarding, rebound, rigid Extremities exam: Present: normal inspection, normal capillary refill, other (Patient has weakness involving the left hand and left wrist. No weakness proximally. Full strength in all other extremities. Full range of motion all of the major joints. Range of motion limited with regards to the phalanges and left hand.). Absent: tenderness, pedal edema, joint swelling, calf tenderness Back exam: Present: normal inspection. Absent: muscle spasm, paraspinal tenderness, vertebral tenderness Neurological exam: Present: alert, CN II-XII intact. Absent: altered Expanded Patient oriented to: Present: person, place. Absent: time Speech: Present: fluid speech Cranial nerves: EOM's Intact: Normal, Gag Reflex: Normal, Tongue Deviation: Normal, Nystagmus: Normal, Facial Sensation: Normal, Facial Palsy with Forehead Movement: Normal, Facial Palsy without Forehead Movement: Normal Cerebellar function: Finger to Nose: Normal, Heel to Souza: Normal, Romberg: Normal Upper motor neuron: Dominic Neglect: Normal, Pronator Drift: Normal, Babinski Sign: Normal, Sensory Extinction: Normal Sensory exam: Upper Extremity Light Touch: Normal, Upper Extremity Pin Prick: Normal, Lower Extremity Light Touch: Normal, Lower Extremity Pin Prick: Normal Motor strength exam: RUE: 5, LUE: 4 (Involving the left hand and fingers only), RLE: 5, LLE: 5 Eye Response: (4) open spontaneously Motor Response: (6) obeys commands Verbal Response: (5) oriented Psychiatric exam: Present: normal affect, normal mood Skin exam: Present: warm, dry, intact, normal color. Absent: rash Stroke MDM - Lab Data Result diagrams: 10/23/21 20:44 10/23/21 20:44 Lab Results 10/23/21 10/23/21 10/23/21 Range/Units 20:44 20:44 20:44 WBC 6.2 (3.8-10.6) k/uL RBC 3.32 L (3.80-5.40) m/uL Hgb 9.8 L (11.4-16.0) gm/dL Hct 31.2 L (34.0-46.0) % MCV 94.1 (80.0-100.0) fL MCH 29.6 (25.0-35.0) pg MCHC 31.4 (31.0-37.0) g/dL RDW 14.3 (11.5-15.5) % Plt Count 305 (150-450) k/uL MPV 7.2 Neutrophils % 65 % Lymphocytes % 23 % Monocytes % 6 % Eosinophils % 4 % Basophils % 1 % Neutrophils # 4.0 (1.3-7.7) k/uL Lymphocytes # 1.4 (1.0-4.8) k/uL Monocytes # 0.4 (0-1.0) k/uL Eosinophils # 0.2 (0-0.7) k/uL Basophils # 0.0 (0-0.2) k/uL PT 10.8 (9.0-12.0) sec INR 1.0 (<1.2) APTT 22.7 (22.0-30.0) sec Sodium 133 L (137-145) mmol/L Potassium 5.2 H (3.5-5.1) mmol/L Chloride 101 (98-107) mmol/L Carbon Dioxide 23 (22-30) mmol/L Anion Gap 9 mmol/L BUN 71 H (7-17) mg/dL Creatinine 1.06 H (0.52-1.04) mg/dL Est GFR (CKD-EPI)AfAm 58 (>60 ml/min/1.73 sqM) Est GFR (CKD-EPI)NonAf 50 (>60 ml/min/1.73 sqM) Glucose 231 H (74-99) mg/dL Calcium 8.6 (8.4-10.2) mg/dL Magnesium 2.1 (1.6-2.3) mg/dL Total Bilirubin 0.3 (0.2-1.3) mg/dL AST 24 (14-36) U/L ALT 18 (4-34) U/L Alkaline Phosphatase 166 H (38-126) U/L Troponin I (0.000-0.034) ng/mL Total Protein 6.8 (6.3-8.2) g/dL Albumin 3.4 L (3.5-5.0) g/dL Urine Color Urine Appearance (Clear) Urine pH (5.0-8.0) Ur Specific Haynes (1.001-1.035) Urine Protein (Negative) Urine Glucose (UA) (Negative) Urine Ketones (Negative) Urine Blood (Negative) Urine Nitrite (Negative) Urine Bilirubin (Negative) Urine Urobilinogen (<2.0) mg/dL Ur Leukocyte Esterase (Negative) 10/23/21 10/23/21 Range/Units 20:44 22:09 WBC (3.8-10.6) k/uL RBC (3.80-5.40) m/uL Hgb (11.4-16.0) gm/dL Hct (34.0-46.0) % MCV (80.0-100.0) fL MCH (25.0-35.0) pg MCHC (31.0-37.0) g/dL RDW (11.5-15.5) % Plt Count (150-450) k/uL MPV Neutrophils % % Lymphocytes % % Monocytes % % Eosinophils % % Basophils % % Neutrophils # (1.3-7.7) k/uL Lymphocytes # (1.0-4.8) k/uL Monocytes # (0-1.0) k/uL Eosinophils # (0-0.7) k/uL Basophils # (0-0.2) k/uL PT (9.0-12.0) sec INR (<1.2) APTT (22.0-30.0) sec Sodium (137-145) mmol/L Potassium (3.5-5.1) mmol/L Chloride (98-107) mmol/L Carbon Dioxide (22-30) mmol/L Anion Gap mmol/L BUN (7-17) mg/dL Creatinine (0.52-1.04) mg/dL Est GFR (CKD-EPI)AfAm (>60 ml/min/1.73 sqM) Est GFR (CKD-EPI)NonAf (>60 ml/min/1.73 sqM) Glucose (74-99) mg/dL Calcium (8.4-10.2) mg/dL Magnesium (1.6-2.3) mg/dL Total Bilirubin (0.2-1.3) mg/dL AST (14-36) U/L ALT (4-34) U/L Alkaline Phosphatase (38-126) U/L Troponin I 0.034 (0.000-0.034) ng/mL Total Protein (6.3-8.2) g/dL Albumin (3.5-5.0) g/dL Urine Color Light Yellow Urine Appearance Clear (Clear) Urine pH 6.5 (5.0-8.0) Ur Specific [place]nes 1.019 (1.001-1.035) Urine Protein Negative (Negative) Urine Glucose (UA) 4+ H (Negative) Urine Ketones Negative (Negative) Urine Blood Negative (Negative) Urine Nitrite Negative (Negative) Urine Bilirubin Negative (Negative) Urine Urobilinogen <2.0 (<2.0) mg/dL Ur Leukocyte Esterase Negative (Negative) - NIH Stroke Scale 1a. Level of Consciousness: (0) alert 1b. LOC Questions: (2) answers no questions correctly 1c. LOC Commands: (0) performs tasks correctly 2. Best Gaze: (0) normal 3. Visual: (0) no visual loss 4. Facial Palsy: (0) normal symmetrical movement 5a. Motor Arm Left: (1) drift 5b. Motor Arm Right: (0) no drift 6a. Motor Leg Left: (0) no drift 6b. Motor Leg Right: (0) no drift 7. Limb Ataxia: (0) absent 8. Sensory: (0) normal 9. Best Language: (0) no aphasia 10. Dysarthria: (0) normal 11. Extinction/Inattention: (0) no abnormality NIH Score total: 3 - Thrombolytic Inclusion/Exclusion Thrombolytic Exclusion Criteria: Symptom Onset > 4.5 Hours (Symptoms likely occurred sometime within the last 7 days, possibly more) - Core Measures AMI Core Measures Followed: No - Medical Decision Making Patient presents with left hand weakness and increased confusion which is been going on for an unknown amount of time although the family states that they saw her 1 week ago and she did not have the weakness of the left hand. Patient does have questionable drooping to the left mouth but is able to smile fully. Granddaughter states this is essentially her normal appearance. And age score was 3 given that the patient was unable to give me the month and year and had a left hand weakness. Otherwise no other significant findings. CT of the head with a CT of the head neck did not show any acute findings. There was carotid artery stenosis and a fusiform narrowing of the right middle cerebral artery. Patient will be admitted for possible subacute CVA. We'll consult neurology. Admitted to Dr. Núñez. The case was discussed in detail with ED attending physician. Presentation, findings, treatment plan discussed in detail. Data Acquisition Technician Dr. Adams 10/23/21 23:42 EKG done at 2230 in the ED attending physician shows electronic ventricular pacemaker with no evidence of acute findings. Rate of 81, normal intervals. Normal axis Past Medical History Past Medical History: Coronary Artery Disease (CAD), Heart Failure, Diabetes Mellitus, Hypertension, Myocardial Infarction (NE), Pneumonia, Vascular Disorder Additional Past Medical History / Comment(s): Pt recently admitted to [facility] on 03/14/21 with CHF/L pleural effusion. Other hx: Chronic L calf wound/WCC, NIDM type II, neuropathy L foot/leg, cardiomyopathy/sees Dr Knight in [place], MIs, mild cognitive impairment, incontinence, iron anemia, hypmagnesemia Last Myocardial Infarction Date:: unsure History of Any Multi-Drug Resistant Organisms: MRSA Date of last positivie culture/infection: 10/11/21 MDRO Source:: Left Foot & Leg Past Surgical History: AICD, Bladder Surgery, Coronary Bypass/CABG, Heart Catheterization, Heart Catheterization With Stent, Hysterectomy, Joint Replacement, Pacemaker Additional Past Surgical History / Comment(s): 10/2020 AICD/pacer, PCI stents, 2010 CABG 3 vessel, L leg wound I&D, bkadder suspension, ovarian cyst removal, D&C, rectocele, colonoscopy, total r knee arthroplasty. Past Anesthesia/Blood Transfusion Reactions: No Reported Reaction Date of Last Stent Placement:: unknown Type of Cardiac Device: AICD Device Placement Date:: 2020 Past Psychological History: No Psychological Hx Reported Additional Psychological History / Comment(s): pt from [facility]. Pt is a retired nurse. Smoking Status: Never smoker Past Alcohol Use History: None Reported Past Drug Use History: None Reported - Past Family History Father Family Medical History: No Reported History Additional Family Medical History / Comment(s): Father had heart problems. He chewed tobacco, smoked and drank quit a bit of alcohol. Mother Family Medical History: Diabetes Mellitus Course Vital Signs 10/23/21 19:44 Temperature 97.7 F Respiratory 16 Rate Blood Pressure 118/50 O2 Sat by Pulse 100 Oximetry - Reevaluation(s) Reevaluation #1: 10/23/21 22:44 Patient unchanged, neurologic status is stable. Reevaluation #2: 10/23/21 23:21 Serial neurological examinations were unchanged - Consultations Consultation #1: Discussed in detail with Dr. Núñez who accepts the admission. Disposition Clinical Impression: Left hand weakness, Carotid artery stenosis, CVA (cerebral vascular accident), Chronic wound of extremity, Peripheral neuropathy Disposition: ADMITTED IP TO THIS [facility] Condition: Stable Is patient prescribed a controlled substance at d/c from ED?: No Referrals: Faraz Loza MD [Primary Care Provider] - 1-2 days Time of Disposition: 22:45 Decision to Admit Reason: Admit from EC Decision Time: 22:45
[2021-10-23 21:22] LABS: Basophils % (A) 1 %; Eosinophils # (A) 0.2 k/uL (0-0.7); Eosinophils % (A) 4 %; HCT 31.2 % (34.0-46.0); HGB 9.8 gm/dL (11.4-16.0); Lymphocytes # (A) 1.4 k/uL (1.0-4.8); Lymphocytes % (A) 23 %; MCH 29.6 pg (25.0-35.0); MCHC 31.4 g/dL (31.0-37.0); MCV 94.1 fL (80.0-100.0); Mean Platelet Volume 7.2; Monocytes # (A) 0.4 k/uL (0-1.0); Monocytes % (A) 6 %; Neutrophils % (A) 65 %; Platelet Count 305 k/uL (150-450); RBC 3.32 m/uL (3.80-5.40); RDW 14.3 % (11.5-15.5); WBC 6.2 k/uL (3.8-10.6)
[2021-10-23 21:33] LABS: Partial Thromboplastin Time 22.7 sec (22.0-30.0); Prothrombin Time 10.8 sec (9.0-12.0)
[2021-10-23 21:34] LABS: Albumin 3.4 g/dL (3.5-5.0); Calcium 8.6 mg/dL (8.4-10.2); Magnesium 2.1 mg/dL (1.6-2.3); Potassium 5.2 mmol/L (3.5-5.1); Total Bilirubin 0.3 mg/dL (0.2-1.3); Total Protein 6.8 g/dL (6.3-8.2)
--- NOTE | 2021-10-23 21:47 | CT ---
EXAMINATION TYPE: CT brain wo con DATE OF EXAM: 10/23/2021 COMPARISON: None HISTORY: neuro deficit CT DLP: 1094.6 mGycm Automated exposure control for dose reduction was used. There is cerebral cortical atrophy. There is no mass effect or midline shift. No sign of intracranial hemorrhage. Calvarium is intact. Skull base is intact. IMPRESSION: Cerebral atrophy. No acute intracranial abnormality.
[2021-10-23] MEDS ORDERED: HYDROcodone/APAP 5-325MG 1 EACH TAB PO STA ×2 (22:12→23:59)
--- NOTE | 2021-10-23 22:13 | CT ---
EXAMINATION TYPE: CT angio head neck DATE OF EXAM: 10/23/2021 COMPARISON: None HISTORY: neuro deficit CT DLP: 384.4 mGycm Automated exposure control for dose reduction was used. CONTRAST: Performed with IV Contrast, patient injected with 65 mL of Isovue 370. Images obtained from the aortic arch to the vertex of the brain with the IV contrast. There are 3-D p ost processed images. There is normal branching pattern of the great vessels on the aortic arch. There is atherosclerotic p laque formation at the aortic arch. There is arterial flow in both subclavian arteries. There is wade rial flow in the common internal and external carotid arteries bilaterally. There is arterial flow in both vertebral arteries. There is moderate plaque formation at the left carotid artery bifurcation. There is estimated 70% stenosis at the distal left common carotid artery. There is estimated less milka n 20% stenosis at the right carotid artery bifurcation. No evidence of carotid or vertebral artery an eurysm or dissection. There is arterial flow in both vertebral arteries. There is arterial flow in th e vertebral basilar artery system. There is significant calcification and plaque in the distal verteb ral arteries. There is arterial flow in the anterior middle and posterior cerebral arteries bilaterally. There is s ome fusiform narrowing of the proximal right middle cerebral artery approximately 35%. There is no ma ss effect. No evidence of intracranial aneurysm or neovascularity. There is normal enhancement of the venous sinuses. IMPRESSION: The exam shows approximate 70% stenosis at the distal left common carotid artery. There is approximat christiano 15% stenosis at the right carotid artery bifurcation. Minimal fusiform narrowing of the proximal right middle cerebral artery without hemodynamic stenosis.
[2021-10-23 22:30] LABS: Appearance,Urine Clear (Clear); Bilirubin,Urine Negative (Negative); Blood,Urine Negative (Negative); Color,Urine Light Yellow; Glucose,Urine (UA) 4+ (Negative); Ketones,Urine Negative (Negative); Leukocyte Esterase,Urine Negative (Negative); Nitrite,Urine Negative (Negative); PH, Urine 6.5 (5.0-8.0); Protein,Urine Negative (Negative); Specific Gravity,Urine 1.019 (1.001-1.035); Urobilinogen,Urine <2.0 mg/dL (<2.0)
--- NOTE | 2021-10-23 22:35 | XR ---
EXAMINATION TYPE: XR chest 2V DATE OF EXAM: 10/23/2021 COMPARISON: 06/03/2021 HISTORY: Altered mental status TECHNIQUE: 2 views FINDINGS: Heart is enlarged. There is some atelectasis right lung base. No heart failure. There is le ft axillary pacemaker. There are sternal wires. Thoracic spine is intact. IMPRESSION: Moderate cardiomegaly. There is some atelectasis right lung base which is increased shilpa red to old exam. No heart failure seen
[2021-10-23] MEDS ORDERED: ASPIRIN 325 MG TAB PO STA (22:40)
[2021-10-23] MEDS ORDERED: ACETAMINOPHEN TAB 325 MG TAB PO PRN (23:29)
[2021-10-23] MEDS ORDERED: bisacodyL 10 MG SUPP RECTAL PRN (23:35)
[2021-10-23] MEDS ORDERED: MAGNESIUM HYDROXIDE 2,400 MG/10 ML CUP PO PRN (23:35)
[2021-10-23] MEDS ORDERED: MELATONIN 3 MG TABLET PO PRN (23:35)
[2021-10-24] MEDS: HEPARIN SODIUM,PORCINE/PF 5,000 UNIT/0.5 ML SYRINGE SQ SCH ×3 (00:54→22:36)
[2021-10-24 02:00] LABS: Glucose,Whole Blood 231 mg/dL (75-99)
[2021-10-24 02:56] LABS: Phosphorus 4.2 mg/dL (2.5-4.5)
[2021-10-24 07:55] LABS: Glucose,Whole Blood 118 mg/dL (75-99)
[2021-10-24] MEDS: INSULIN ASPART (NovoLOG) 100 UNIT/ML VIAL SQ SCH ×3 (08:00→16:48)
[2021-10-24] MEDS: SODIUM CHLORIDE 0.9% 1,000 ML IV SCH (08:00)
[2021-10-24] MEDS: CLOPIDOGREL 75 MG TAB PO SCH (08:01)
[2021-10-24] MEDS: carvediloL 6.25 MG TAB PO SCH ×2 (08:01→16:46)
[2021-10-24] MEDS: FAMOTIDINE 20 MG TAB PO SCH (08:01)
[2021-10-24] MEDS: ISOSORBIDE MONONITRATE ER 30 MG TAB.ER.24H PO SCH (08:01)
[2021-10-24] MEDS: SPIRONOLACTONE 25 MG TAB PO SCH (08:02)
[2021-10-24] MEDS: FUROSEMIDE 20 MG TAB PO SCH (08:02)
[2021-10-24] MEDS: ASPIRIN 325 MG TAB PO SCH (08:02)
[2021-10-24] MEDS: SACUBITRIL/VALSARTAN 24 MG-26 MG TABLET PO SCH ×2 (08:42→16:46)
[2021-10-24] MEDS: FERROUS SULFATE 325 MG TAB PO SCH ×2 (08:43→16:46)
[2021-10-24 10:37] LABS: Chol/HDL Ratio 2.44 Ratio; LDL Cholesterol,Calculated 56.6 mg/dL (0.0-131.0); VLDL Calculation 10.56 mg/dL (5.00-40.00)
--- NOTE | 2021-10-24 11:16 | P.GSCN ---
History of Present Illness Consult date: 10/24/21 Reason for Consult: Carotid stenosis Requesting physician: Mikhail Merida History of present illness: This is a pleasant 81-year-old female who was brought in by her residential for left-handed weakness. Apparently patient had been having increased weakness to the left hand for the last 5 days. She has a past medical history including coronary artery disease status post bypass and as well as pacemaker, chronic lower extremity wounds, heart failure, diabetes mellitus, hypertension, and peripheral neuropathy. The patient's friend is at the bedside states that the left hand is definitely weak compared to in the past. However otherwise patient seems to have no other focal deficits according to her. Patient denies any difficulty with speaking, difficulty swallowing, she does state that she has had some increased memory impairment. However patient does have a history of dementia as well. She currently denies any chest pain, shortness of breath, abdominal pain, nausea or vomiting. The patient still reporting left hand weakness. Left upper extremity tone and strength normal. Patient does seem to have questionable left facial drooping. She had a CT of the brain that showed cerebral atrophy with no acute abnormality. CT angiogram head and neck reported approximate 70% stenosis at the distal left common carotid artery and approximately 15% stenosis at the right carotid artery bifurcation. Review of Systems A 14 point review systems was completed all pertinent positives and negatives as stated in the HPI. Past Medical History Past Medical History: Coronary Artery Disease (CAD), Heart Failure, Diabetes Mellitus, Hypertension, Myocardial Infarction (MA), Pneumonia, Vascular Disorder Additional Past Medical History / Comment(s): Pt recently admitted to [facility] on 03/14/21 with CHF/L pleural effusion. Other hx: Chronic L calf wound/WCC, NIDM type II, neuropathy L foot/leg, cardiomyopathy/sees Dr Knight in [place], MIs, mild cognitive impairment, incontinence, iron anemia, hypmagnesemia Last Myocardial Infarction Date:: unsure History of Any Multi-Drug Resistant Organisms: MRSA Year Discovered:: 10/11/21 MDRO Source:: Left Foot & Leg Past Surgical History: AICD, Bladder Surgery, Coronary Bypass/CABG, Heart Catheterization, Heart Catheterization With Stent, Hysterectomy, Joint Replacement, Pacemaker Additional Past Surgical History / Comment(s): 10/2020 AICD/pacer, PCI stents, 2010 CABG 3 vessel, L leg wound I&D, bkadder suspension, ovarian cyst removal, D&C, rectocele, colonoscopy, total r knee arthroplasty. Past Anesthesia/Blood Transfusion Reactions: No Reported Reaction Date of Last Stent Placement:: unknown Type of Cardiac Device: AICD Device Placement Date:: 2020 Past Psychological History: No Psychological Hx Reported Additional Psychological History / Comment(s): pt from [facility]. Pt is a retired nurse. Smoking Status: Never smoker Past Alcohol Use History: None Reported Past Drug Use History: None Reported - Past Family History Father Family Medical History: No Reported History Additional Family Medical History / Comment(s): Father had heart problems. He chewed tobacco, smoked and drank quit a bit of alcohol. Mother Family Medical History: Diabetes Mellitus Medications and Allergies Home Medications Medication Instructions Recorded Confirmed Type Aspirin EC [Ecotrin Low Dose] 81 mg PO DAILY@0800 03/14/21 10/23/21 History Clopidogrel [Plavix] 75 mg PO DAILY@0800 03/14/21 10/23/21 History Donepezil [Aricept] 10 mg PO HS@2100 03/14/21 10/23/21 History Isosorbide Mononitrate ER [Imdur] 30 mg PO DAILY@0800 03/14/21 10/23/21 History Magnesium Oxide 400 mg PO DAILY@0800 03/14/21 10/23/21 History glipiZIDE [Glucotrol] 5 mg PO DAILY@0800 03/14/21 10/23/21 History Benzocaine/Menthol [Dermoplast 1 spray TOPICAL BID PRN 04/16/21 10/23/21 History Pain Relieving [place]] Ferrous Sulfate [Iron (65 MG 325 mg PO BID@0800,1700 04/16/21 10/23/21 History Elemental)] Acetaminophen Tab [Tylenol] 650 mg PO Q6HR PRN tab 04/28/21 10/23/21 Rx Famotidine [Pepcid] 20 mg PO DAILY@0800 05/07/21 10/23/21 History INSULIN ASPART (NovoLOG) [NovoLOG See Protocol SQ ACHS 05/07/21 10/23/21 History (formulary)] L.acidoph,Paracasei, B.lactis 1 cap PO DAILY@0800 05/07/21 10/23/21 History [Probiotic] Magnesium Hydroxide [Milk of 2,400 mg PO DAILY PRN 05/07/21 10/23/21 History Magnesia] Melatonin 3 mg PO DAILY PRN 05/07/21 10/23/21 History Na Phos,M-B/Na Phos,Di-Ba [Fleet 133 ml RECTAL DAILY PRN 05/07/21 10/23/21 History Adult] Ondansetron [Zofran] 4 mg PO TID PRN 05/07/21 10/23/21 History Spironolactone [Aldactone] 12.5 mg PO DAILY@0800 05/07/21 10/23/21 History bisacodyL [Dulcolax] 10 mg RECTAL DAILY PRN 05/07/21 10/23/21 History HYDROcodone/APAP 5-325MG [[place] 1 tab PO Q6H PRN 06/03/21 10/23/21 History 5-325] Lidocaine 5% Cream 1 applic TOPICAL WE@0800 06/03/21 10/23/21 History Lidocaine 5% Cream 1 applic TOPICAL DAILY PRN 06/03/21 10/23/21 History Atorvastatin [Lipitor] 40 mg PO HS@2100 10/23/21 10/23/21 History Carvedilol [Coreg] 6.25 mg PO BID@0800,1700 10/23/21 10/23/21 History Collagenase [Santyl Ointment] 1 applic TOPICAL DAILY 10/23/21 10/23/21 History Dakins(1/2 Strength) Solution 0.25% 1 applic TOPICAL DAILY 10/23/21 10/23/21 History Empagliflozin [Jardiance] 10 mg PO DAILY@0800 10/23/21 10/23/21 History Furosemide [Lasix] 20 mg PO DAILY@0800 10/23/21 10/23/21 History Emmanuel Packet 1 packet PO BID@0800,1700 10/23/21 10/23/21 History Moxifloxacin HCl [Avelox] 400 mg PO DAILY@1700 10/23/21 10/23/21 History Sacubitril/Valsartan [Entresto 24 1 tab PO BID@0800,1700 10/23/21 10/23/21 History mg-26 mg Tablet] Allergies Allergy/AdvReac Type Severity Reaction Status Date / Time Sulfa (Sulfonamide Allergy Anaphylaxis Verified 06/06/22 21:19 Antibiotics) Surgical - Exam Vital Signs Temp Resp BP Pulse Ox 97.7 F 16 118/50 100 10/23/21 19:44 10/23/21 19:44 10/23/21 19:44 10/23/21 19:44 General appearance: The patient is alert, oriented, appears in no acute distress. HET: Head is normocephalic and atraumatic. Pupils are equal and reactive. Neck: Supple without lymphadenopathy. Trachea midline. No audible carotid bruit. Heart: S1 S2. Regular rate and rhythm. Lungs: Bilateral wheezes. Abdomen: Soft, nontender, nondistended. Extremities: Normal skin color and turgor. Bilateral lower extremities with dressings clean dry and intact. Neurological: Left hand grasp 4/5. Bilateral upper extremity with good tone and strength. Bilateral lower extremities good tone, right lower extremity was some increased weakness compared to left. Patient does complain of back pain as well. And has wounds on bilateral lower extremities. Patient is alert and oriented. Answers questions appropriately, speech is fluent. Tongue protrudes midline. There seems to be a slight left facial droop. Results - Labs 10/23/21 20:44 10/23/21 20:44 Abnormal Lab Results - Last 24 Hours (Table) 10/23/21 10/23/21 10/23/21 Range/Units 20:44 20:44 22:09 RBC 3.32 L (3.80-5.40) m/uL Hgb 9.8 L (11.4-16.0) gm/dL Hct 31.2 L (34.0-46.0) % Sodium 133 L (137-145) mmol/L Potassium 5.2 H (3.5-5.1) mmol/L BUN 71 H (7-17) mg/dL Creatinine 1.06 H (0.52-1.04) mg/dL Glucose 231 H (74-99) mg/dL POC Glucose (mg/dL) (75-99) mg/dL Hemoglobin A1c (0.0-6.0) % Alkaline Phosphatase 166 H (38-126) U/L Albumin 3.4 L (3.5-5.0) g/dL Urine Glucose (UA) 4+ H (Negative) 10/24/21 10/24/21 10/24/21 Range/Units 01:59 05:37 07:54 RBC (3.80-5.40) m/uL Hgb (11.4-16.0) gm/dL Hct (34.0-46.0) % Sodium (137-145) mmol/L Potassium (3.5-5.1) mmol/L BUN (7-17) mg/dL Creatinine (0.52-1.04) mg/dL Glucose (74-99) mg/dL POC Glucose (mg/dL) 231 H 118 H (75-99) mg/dL Hemoglobin A1c 7.2 H (0.0-6.0) % Alkaline Phosphatase (38-126) U/L Albumin (3.5-5.0) g/dL Urine Glucose (UA) (Negative) Diabetes panel 10/23/21 10/24/21 10/24/21 Range/Units 20:44 05:37 05:37 Sodium 133 L (137-145) mmol/L Potassium 5.2 H (3.5-5.1) mmol/L Chloride 101 (98-107) mmol/L Carbon Dioxide 23 (22-30) mmol/L BUN 71 H (7-17) mg/dL Creatinine 1.06 H (0.52-1.04) mg/dL Glucose 231 H (74-99) mg/dL Hemoglobin A1c 7.2 H (0.0-6.0) % Calcium 8.6 (8.4-10.2) mg/dL AST 24 (14-36) U/L ALT 18 (4-34) U/L Alkaline Phosphatase 166 H (38-126) U/L Total Protein 6.8 (6.3-8.2) g/dL Albumin 3.4 L (3.5-5.0) g/dL Triglycerides 52.80 (0.00-149.00) mg/dL HDL Cholesterol 46.80 (40.00-60.00) mg/dL Thyroid panel 10/24/21 Range/Units 01:55 TSH 2.720 (0.465-4.680) mIU/L Calcium panel 10/23/21 10/24/21 Range/Units 20:44 01:55 Calcium 8.6 (8.4-10.2) mg/dL Phosphorus 4.2 (2.5-4.5) mg/dL Albumin 3.4 L (3.5-5.0) g/dL Pituitary panel 10/23/21 10/24/21 Range/Units 20:44 01:55 Sodium 133 L (137-145) mmol/L Potassium 5.2 H (3.5-5.1) mmol/L Chloride 101 (98-107) mmol/L Carbon Dioxide 23 (22-30) mmol/L BUN 71 H (7-17) mg/dL Creatinine 1.06 H (0.52-1.04) mg/dL Glucose 231 H (74-99) mg/dL Calcium 8.6 (8.4-10.2) mg/dL TSH 2.720 (0.465-4.680) mIU/L Adrenal panel 10/23/21 Range/Units 20:44 Sodium 133 L (137-145) mmol/L Potassium 5.2 H (3.5-5.1) mmol/L Chloride 101 (98-107) mmol/L Carbon Dioxide 23 (22-30) mmol/L BUN 71 H (7-17) mg/dL Creatinine 1.06 H (0.52-1.04) mg/dL Glucose 231 H (74-99) mg/dL Calcium 8.6 (8.4-10.2) mg/dL Total Bilirubin 0.3 (0.2-1.3) mg/dL AST 24 (14-36) U/L ALT 18 (4-34) U/L Alkaline Phosphatase 166 H (38-126) U/L Total Protein 6.8 (6.3-8.2) g/dL Albumin 3.4 L (3.5-5.0) g/dL - Imaging Comments: CT of the brain that showed cerebral atrophy with no acute abnormality. CT angiogram head and neck reported approximate 70% stenosis at the distal left common carotid artery and approximately 15% stenosis at the right carotid artery bifurcation. Minimal fusiform narrowing of the proximal middle cerebral artery without hemodynamic stenosis. Assessment and Plan Assessment: 1. Left internal carotid artery stenosis, approximately 70% per CT angiogram head and neck 2. Left hand weakness 3. Possible TIA/CVA 4. History of coronary artery disease status post bypass surgery and pacemaker 5. Diabetes mellitus with peripheral neuropathy 6. Chronic lower extremity wounds 7. Hypertension and hyperlipidemia Plan: 1. Continue symptomatic and supportive care 2. Carotid duplex ordered 3. Continue aspirin, statin and Plavix 4. Continue with recommendations from neurology 5. Further recommendations forthcoming per vascular surgeon. Thank you for this consultation, we will continue to follow. The impression and plan of care has been dictated as directed. Dr. Khan I performed a history and examination of this patient, discussed the same with the dictator. I agree with the dictator's note ,documented as a scribe. Any additional findings or plans will be noted.
--- NOTE | 2021-10-24 11:28 | CA ---
Transthoracic Echo Report Name: Lilia Boateng Age: 81 Gender: F : 1940 Exam Date: 10/24/2021 07:18 Exam Location: [place] [facility] Ht (in): 62 Wt (lb): 147 Ordering Physician: Armand Dodge Attending/Referring Phys: Cardiopulmonary Supervisor Pascale Vela RDCS Procedure CPT: Indications: Thrombus Cardiac Hx: Fm hx of triple bypass, ND with stenting, htn,chol, and AICD. Technical Quality: Good Contrast 1: Total Dose (mL): Contrast 2: Total Dose (mL): MEASUREMENTS (Male / Female) Normal Values 2D ECHO LV Diastolic Diameter PLAX 4.8 cm 4.2 - 5.9 / 3.9 - 5.3 cm LV Systolic Diameter PLAX 4.5 cm IVS Diastolic Thickness 1.0 cm 0.6 - 1.0 / 0.6 - 0.9 cm LVPW Diastolic Thickness 1.3 cm 0.6 - 1.0 / 0.6 - 0.9 cm LV Relative Wall Thickness 0.5 LV Diastolic Volume MOD 4C 119.7 cm??? LV Systolic Volume MOD 4C 81.6 cm??? LV Ejection Fraction MOD 4C 31.9 % LV Diastolic Length 4C 7.7 cm LV Systolic Length 4C 7.0 cm LA Volume 51.3 cm??? 18 - 58 / 22 - 52 cm??? M-MODE Aortic Root Diameter MM 2.9 cm LA Systolic Diameter MM 3.8 cm LA Ao Ratio MM 1.3 MV E Point Septal Separation 4.0 cm AV Cusp Separation MM 1.6 cm DOPPLER AV Peak Velocity 158.9 cm/s AV Peak Gradient 10.1 mmHg AI Peak Velocity 370.1 cm/s AI Peak Gradient 54.8 mmHg AI Pressure Half Time 294.2 ms MV Area PHT 8.8 cm??? MR Peak Velocity 398.6 cm/s MR Peak Gradient 63.5 mmHg Mitral E Point Velocity 83.6 cm/s Mitral A Point Velocity 146.7 cm/s Mitral E to A Ratio 0.6 MV Deceleration Time 85.8 ms MV E' Velocity 3.3 cm/s Mitral E to MV E' Ratio 25.2 TR Peak Velocity 281.5 cm/s TR Peak Gradient 31.7 mmHg Right Ventricular Systolic Press 34.8 mmHg FINDINGS Left Ventricle Mildly increased septal wall thickness. Mildly increased posterior wall thickness. Grade 1 diastolic dysfunction. Left ventricular ejection fraction is estimated at 30-35%. Right Ventricle The right ventricle is normal in size and function. Pacerwire seen in the RV. Right ventricular systolic pressure within normal limits. Right Atrium The right atrium is normal in size. Left Atrium The left atrium is normal in size. Mitral Valve Structurally normal mitral valve without significant stenosis or prolapse. There is mild mitral regurgitation. Mitral valve thickened. Mitral annular calcification. Aortic Valve Structurally normal aortic valve without significant sclerosis or stenosis. There is mild aortic regurgitation. Focal thickening of the aortic valve cusps. Tricuspid Valve Structurally normal tricuspid valve without significant stenosis. Pulmonary artery systolic pressure is normal. Moderate tricuspid regurgitation. Pulmonic Valve Structurally normal pulmonic valve without significant stenosis. There is no pulmonic regurgitation. Pericardium Normal pericardium without effusion. Aorta Normal aortic root dimension. CONCLUSIONS #1. Global left ventricle dysfunction with some atypical motion of the septum. Ejection fraction is probably around 30-35%. #2. Moderate tricuspid regurgitation #3. Mild mitral regurgitation with annular calcification #4. There is a pacemaker wire in the right ventricle Previewed by: Dr. Francis Connor MD (Electronically Signed) Final Date: 24 October 2021 11:27
--- NOTE | 2021-10-24 11:34 | US ---
EXAMINATION TYPE: US carotid duplex BILAT DATE OF EXAM: 10/24/2021 COMPARISON: CTA 2021 CLINICAL HISTORY: left handed weakness, TIA. EXAM MEASUREMENTS: RIGHT: Peak Systolic Velocity (PSV) cm/sec ----- Right CCA: 95.3 ----- Right ICA: 79.6 ----- Right ECA: 191.0 ICA/CCA ratio: 0.8 RIGHT: End Diastole cm/sec ----- Right CCA: 11.1 ----- Right ICA: 12.0 ----- Right ECA: 0.0 LEFT: Peak Systolic Velocity (PSV) cm/sec ----- Left CCA: 89.3 ----- Left ICA: 140.1 ----- Left ECA: 200.6 ICA/CCA ratio: 1.6 LEFT: End Diastole cm/sec ----- Left CCA: 0.0 ----- Left ICA: 10.8 ----- Left ECA: 0.0 VERTEBRALS (direction of flow): Right Vertebral: Antegrade Left Vertebral: Antegrade Rhythm: Normal No significant stenosis IMPRESSION: 1. Atherosclerotic changes with no significant hemodynamic stenosis as visualized . Criteria for Assigning % of Stenosis / Diameter reduction (Estimation based on the indirect measurements of the internal carotid artery velocities (ICA PSV). 1. Normal (no stenosis)=ICA PSV < 125 cm/s: ratio < 2.0: ICA EDV<40 cm/s. 2. Less than 50% stenosis=ICA PSV < 125 cm/s: ratio < 2.0: ICA EDV<40 cm/s. 3. 50 to 69% stenosis=ICA PSV of 125 to 230 cm/s: ration 2.0 ? 4.0: ICA EDV 40-100 cm/s. 4. Greater than 70% stenosis to near occlusion= ICA PSV > 230 cm/s: ratio > 4.0: ICA EDV > 100 cm/s. 5. Near occlusion= ICA PSV velocities may be low or undetectable: variable ratio and ICA EDV. 6. Total occlusion=unable to detect flow.
--- NOTE | 2021-10-24 11:47 | P.CNNES ---
History of Present Illness Consult date: 10/24/21 Requesting physician: Armand Dodge Reason for Consult: left hand weakness History of Present Illness: This is a 81-year-old woman with medical history of cognitive impairment/dementia, diabetes mellitus, neuropathy, hypertension, cardiomyopathy status post CABG, coronary artery disease status post stent, pacemaker who pr esented emergency department for left hand weakness of unknown duration. History was obtained from medical record and patient's daughter best friend. She resides in the group home facility and unsure if it has been going on for 1 month but per the family members were notified the ED team they saw her one week ago and she did not have left hand weakness. Per daughter's best friend it was felt possibly her symptoms started within 5-6 days prior to presenting to the hospital. Also family feels the patient has been having increased confusion. Currently feels her confusion is improving. She denies of neck pain. Denies any recent trauma to neck. Patient is on numerous medication but Some of her medications are aspirin 81 mg, Plavix 75 mg, Lipitor 40 mg. I spoke with daughter (Marily) via phone and stated having intermittent confusion for the past one year. Some of the workup in our facility consisted of: Initial serum glucose is 231. Hemoglobin A1c 7.2. TSH is 2.7-0. Potassium 5.2 sodium is 133. Creatinine is 1.06. CT of the head is reported as cerebral atrophy. No acute intracranial abnormality. CT angiography of the head and next reported as exam shows approximately 70% stenosis at the distal left common carotid artery. There is approximately 50% stenosis at the right carotid artery bifurcation. Minimal fusiform narrowing of the proximal right middle cerebral artery without hemodynamic stenosis. EKG is reported as electronic ventricular pacemaker. Abnormal rhythm EKG. NIH stroke scale per the ED team is 3 and the points were 2 for loss of conscious questions and 1 for motor drift on the left. No IV TPA since unknown last normal and the risks outweigh the benefit. Review of Systems Review of system: The 12 point system was reviewed and apparent positive and negative per HPI. Past Medical History Past Medical History: Coronary Artery Disease (CAD), Heart Failure, Diabetes Mellitus, Hypertension, Myocardial Infarction ([place]), Pneumonia, Vascular Disorder Additional Past Medical History / Comment(s): Pt recently admitted to [facility] on 03/14/21 with CHF/L pleural effusion. Other hx: Chronic L calf wound/WCC, NIDM type II, neuropathy L foot/leg, cardiomyopathy/sees Dr Knight in [place], MIs, mild cognitive impairment, incontinence, iron anemia, hypmagnesemia Last Myocardial Infarction Date:: unsure History of Any Multi-Drug Resistant Organisms: MRSA Date of last positivie culture/infection: 10/11/21 MDRO Source:: Left Foot & Leg Past Surgical History: AICD, Bladder Surgery, Coronary Bypass/CABG, Heart Catheterization, Heart Catheterization With Stent, Hysterectomy, Joint Replacement, Pacemaker Additional Past Surgical History / Comment(s): 10/2020 AICD/pacer, PCI stents, 2010 CABG 3 vessel, L leg wound I&D, bkadder suspension, ovarian cyst removal, D&C, rectocele, colonoscopy, total r knee arthroplasty. Past Anesthesia/Blood Transfusion Reactions: No Reported Reaction Date of Last Stent Placement:: unknown Type of Cardiac Device: AICD Device Placement Date:: 2020 Past Psychological History: No Psychological Hx Reported Additional Psychological History / Comment(s): pt from [facility]. Pt is a retired nurse. Smoking Status: Never smoker Past Alcohol Use History: None Reported Past Drug Use History: None Reported - Past Family History Father Family Medical History: No Reported History Additional Family Medical History / Comment(s): Father had heart problems. He chewed tobacco, smoked and drank quit a bit of alcohol. Mother Family Medical History: Diabetes Mellitus Medications and Allergies Home Medications Medication Instructions Recorded Confirmed Type Aspirin EC [Ecotrin Low Dose] 81 mg PO DAILY@0800 03/14/21 10/23/21 History Clopidogrel [Plavix] 75 mg PO DAILY@0803/14/21 10/23/21 History Donepezil [Aricept] 10 mg PO HS@2100 03/14/21 10/23/21 History Isosorbide Mononitrate ER [Imdur] 30 mg PO DAILY@0803/14/21 10/23/21 History Magnesium Oxide 400 mg PO DAILY@0803/14/21 10/23/21 History glipiZIDE [Glucotrol] 5 mg PO DAILY@0800 03/14/21 10/23/21 History Benzocaine/Menthol [Dermoplast 1 spray TOPICAL BID PRN 04/16/21 10/23/21 History Pain Relieving [place]] Ferrous Sulfate [Iron (65 MG 325 mg PO BID@0800,1700 04/16/21 10/23/21 History Elemental)] Acetaminophen Tab [Tylenol] 650 mg PO Q6HR PRN tab 04/28/21 10/23/21 Rx Famotidine [Pepcid] 20 mg PO DAILY@0800 05/07/21 10/23/21 History INSULIN ASPART (NovoLOG) [NovoLOG See Protocol SQ ACHS 05/07/21 10/23/21 History (formulary)] L.acidoph,Paracasei, B.lactis 1 cap PO DAILY@0800 05/07/21 10/23/21 History [Probiotic] Magnesium Hydroxide [Milk of 2,400 mg PO DAILY PRN 05/07/21 10/23/21 History Magnesia] Melatonin 3 mg PO DAILY PRN 05/07/21 10/23/21 History Na Phos,M-B/Na Phos,Di-Ba [Fleet 133 ml RECTAL DAILY PRN 05/07/21 10/23/21 History Adult] Ondansetron [Zofran] 4 mg PO TID PRN 05/07/21 10/23/21 History Spironolactone [Aldactone] 12.5 mg PO DAILY@0800 05/07/21 10/23/21 History bisacodyL [Dulcolax] 10 mg RECTAL DAILY PRN 05/07/21 10/23/21 History HYDROcodone/APAP 5-325MG [[place] 1 tab PO Q6H PRN 06/03/21 10/23/21 History 5-325] Lidocaine 5% Cream 1 applic TOPICAL WE@0800 06/03/21 10/23/21 History Lidocaine 5% Cream 1 applic TOPICAL DAILY PRN 06/03/21 10/23/21 History Atorvastatin [Lipitor] 40 mg PO HS@2100 10/23/21 10/23/21 History Carvedilol [Coreg] 6.25 mg PO BID@0800,1700 10/23/21 10/23/21 History Collagenase [Santyl Ointment] 1 applic TOPICAL DAILY 10/23/21 10/23/21 History Dakins(1/2 Strength) Solution 0.25% 1 applic TOPICAL DAILY 10/23/21 10/23/21 History Empagliflozin [Jardiance] 10 mg PO DAILY@0800 10/23/21 10/23/21 History Furosemide [Lasix] 20 mg PO DAILY@0800 10/23/21 10/23/21 History Emmanuel Packet 1 packet PO BID@0800,1700 10/23/21 10/23/21 History Moxifloxacin HCl [Avelox] 400 mg PO DAILY@1700 10/23/21 10/23/21 History Sacubitril/Valsartan [Entresto 24 1 tab PO BID@0800,1700 10/23/21 10/23/21 History mg-26 mg Tablet] Allergies Allergy/AdvReac Type Severity Reaction Status Date / Time Sulfa (Sulfonamide Allergy Anaphylaxis Verified 10/23/21 21:19 Antibiotics) Physical Examination - Vital Signs Vital Signs: Vital Signs Temp Pulse Resp BP Pulse Ox 10/24/21 06:00 80 16 135/61 10/23/21 23:00 90 16 129/69 98 10/23/21 19:44 97.7 F 16 118/50 100 Intake and Output 10/23/21 10/24/21 10/24/21 22:59 06:59 14:59 Output Total 1000 Balance -1000 Output: Urine 1000 Other: Weight 67 kg GENERAL: The patient is lying in bed and is not in acute distress. CHEST: The heart rate is regular rate rhythm. No murmurs to auscultation. LUNG: Clear to auscultation bilaterally no wheezing noted throughout. Not labored breathing. ABDOMEN/GI: Bowel sounds present in all 4 quadrants. No tenderness to palpation throughout. NEUROLOGICAL: Higher mental function: The patient is awake, alert, oriented to self, time She stated she was in the hospital. Patient is following simple commands. No aphasia and no neglect. Cranial nerves: The pupils are round, equal and reactive to light and accommodation. Visual dotson are full to confrontation throughout. Extraocular movement is intact no nystagmus is noted. Facial sensation is normal to touch throughout. The facial strength is left nasolabial flattening. Hearing moderately decreased bilaterally to hand rub. Tongue is midline and moved [id number] without any difficulty. No dysarthria is noted. Shoulder shrug is normal bilaterally. Motor: The strength is left hand outreach librarian is 3-4, left hand/wrist extension is 1. Left foearm flexion is 4+. Otherwise right upper is 5/5. Lowers are 3-4 and limited because of pain (has old sores per family friend). Slightly increase tone over the left hand. Normal bulk. Cerebellum: Normal finger to nose bilaterally. Sensation: Sensation is normal to touch throughout. Reflexes (right/left): 1+ throughout. Plantars are mute bilaterally. Results - Laboratory Findings CBC and BMP: 10/23/21 20:44 10/23/21 20:44 Abnormal Lab Findings: Abnormal Labs 10/23/21 10/23/21 10/23/21 20:44 20:44 22:09 RBC 3.32 L Hgb 9.8 L Hct 31.2 L Sodium 133 L Potassium 5.2 H BUN 71 H Creatinine 1.06 H Glucose 231 H POC Glucose (mg/dL) Hemoglobin A1c Alkaline Phosphatase 166 H Albumin 3.4 L Urine Glucose (UA) 4+ H 10/24/21 10/24/21 10/24/21 01:59 05:37 07:54 RBC Hgb Hct Sodium Potassium BUN Creatinine Glucose POC Glucose (mg/dL) 231 H 118 H Hemoglobin A1c 7.2 H Alkaline Phosphatase Albumin Urine Glucose (UA) Assessment and Plan Assessment: Acute to subacute Left hand weakness (on examination had left hand/wrist weakness predominately extension and left nasolabial flattening). Probable stroke. Left common carotid stenosis of about 70% per CTA. This would not explain left hand weakness. Worsening of confusion: Ecephalopathy likely multifactorial: Metabolic encephalopathy and possibly worsening of her demential/cognitive impairment---per daughter has intermittent confusion for past one year--currently improved. Cognitive impairment/dementia Diabetes mellitus Neuropathy Hpertension Cardiomyopathy status post CABG Coronary artery disease status post stent Pacemaker Plan: Cannot obtain MRI Brain since patient has pacemaker. Therefore, will obtain repeat CT head by tomorrow. Consulted vascular surgery team for carotid stenosis and recommend carotid duplex. 2-D echo, lipid panel is ordered as pending Currently the patient is on aspirin 325 daily, Plavix 75 mg daily (patient was on home ASA 81 and Plavix 75mg daily) and the Lipitor 40 mg daily. PT and OT are consulted Placed on neuro checks Placed cardiac monitoring Ordered vitamin B12, folate, ammonia level and routine EEG since the patient is having the reported confusion. Ordered CT cervical to rule out any cervical stenosis as result of her weakness. If negative for stroke of CT brain by tomorrow recommend EMG with NCS as outpatient to rule out neuropathy. We'll defer the rest of the medical management to the primary team For DVT prophylaxis the patient is on subcu heparin 5000 units every 12 hours The plan is discussed with patient and her daughter (Marily) via phone. Thank you for the consultation. Mikhail Merida M.D. Neuro-hospitalist Time with Patient: Greater than 30
--- NOTE | 2021-10-24 12:50 | CT ---
EXAMINATION TYPE: CT cervical spine wo con DATE OF EXAM: 10/24/2021 COMPARISON: No previous CT scan is available for comparison. HISTORY: Lt hand weakness CT DLP: Images reconstructed from CTA head and neck done 10/23/2021 mGycm Automated exposure control for dose reduction was used. TECHNIQUE: CT scan of the cervical spine is obtained without contrast, axial images are obtained, sa gittal and coronal reformatted images are also reviewed. FINDINGS: Anterolisthesis of C4 over C5 and C6 over C7 as well as C7 over T1, likely degenerative. Retrolisthes is of C5 over C6. No definite vertebral body collapse or acute displaced fracture. Unremarkable atlan toaxial and atlantooccipital articulations. Degenerative changes of the cervical spine with multilevel opposing endplate osteophytosis, degenerat ed discs and uncovertebral osteoarthropathy, most evident at C5-6 and C6-7 levels. Multilevel facet o steoarthropathy is also noted, most evident involving the left C4-5 facet. Mild left C4-5, moderate bilateral C5-6 and mild bilateral C6-7 neural foraminal stenosis. No signifi cant bony central cervical spinal canal stenosis. Unremarkable prevertebral soft tissue. Scattered ar terial atherosclerotic calcification. IMPRESSION: Degenerative changes of the cervical spine as detailed above. Further MRI assessment can be considere d if clinically required.
[2021-10-24] MEDS: HYDROcodone/APAP 5-325MG 1 EACH TAB PO PRN (14:11)
--- NOTE | 2021-10-24 15:10 | P.HPIM ---
History of Present Illness H&P Date: 10/24/21 Chief Complaint: Left-sided weakness. Patient is a 81-year-old male with a known history of coronary bifurcation. Carotid artery bifurcation. Disease status post CABG in 2009 and history of AICD placement couple years ago, history of stent placement, hypertension, diabetes type 2, history of mild, chronic leg wound, cardiomyopathy status post AICD placement and other multiple medical problems presents to ER with complaints of left sided weakness. Patient states that she felt very weak in her legs mainly in the left side and also left upper extremity with contracture s. Patient is somewhat poor historian. She is currently at longterm. According to nursing staff her family weakness for the past 1 week she has been having. She is also more confused for the past 1 month. No fever no chills. Denied any headache. No blurred vision. No slurred speech. No numbness or tingling sensation. Patient was brought to ER for evaluation. CT head on admission showed cerebral atrophy and no acute intracranial abnormality noted. CT angiogram of the head and neck showed approximate 70% stenosis at the distal LICA. Approximately 15% stenosis at the right carotid artery bifurcation. Minimal fusiform narrowing of the proximal right middle cerebral artery without hemodynamic stenosis. EKG showed ventricular paced rhythm. Chest x-ray showed moderate cardiomegaly there is some atelectasis right lung base which is increased compared to old exam. No heart failure seen. 2D echocardiogram showed left ventricular ejection fraction 30 to 35%. RVSP within normal limits. Moderate tricuspid regurgitation and mild mitral regurgitation. Laboratory test showed WBC 6.2 hemoglobin 9.8 and platelets 305 sodium 133 potassium 5.2 chloride 101 bicarb is 23 BUN 71 and creatinine 0.161.06, blood sugar 231 A1c 7.2 Liver enzymes alk phos 166 AST 24 ALT 18 and albumin 3.4 TSH within normal limits Urinalysis showed 4+ glucose. No evidence of infection. Patient is on follow-up with wound care center for chronic wound on the legs. Review of Systems Complete review of systems could not be obtained from the patient except as per HPI. Past Medical History Past Medical History: Coronary Artery Disease (CAD), Heart Failure, Diabetes Mellitus, Hypertension, Myocardial Infarction ([place]), Pneumonia, Vascular Disorder Additional Past Medical History / Comment(s): Pt recently admitted to [facility] on 03/14/21 with CHF/L pleural effusion. Other hx: Chronic L calf wound/WCC, NIDM type II, neuropathy L foot/leg, cardiomyopathy/sees Dr Knight in [place], MIs, mild cognitive impairment, incontinence, iron anemia, hypmagnesemia Last Myocardial Infarction Date:: unsure History of Any Multi-Drug Resistant Organisms: MRSA Date of last positivie culture/infection: 10/11/21 MDRO Source:: Left Foot & Leg Past Surgical History: AICD, Bladder Surgery, Coronary Bypass/CABG, Heart Catheterization, Heart Catheterization With Stent, Hysterectomy, Joint Replacement, Pacemaker Additional Past Surgical History / Comment(s): 10/2020 AICD/pacer, PCI stents, 2010 CABG 3 vessel, L leg wound I&D, bkadder suspension, ovarian cyst removal, D&C, rectocele, colonoscopy, total r knee arthroplasty. Past Anesthesia/Blood Transfusion Reactions: No Reported Reaction Date of Last Stent Placement:: unknown Type of Cardiac Device: AICD Device Placement Date:: 2020 Past Psychological History: No Psychological Hx Reported Additional Psychological History / Comment(s): pt from [facility]. Pt is a retired nurse. Smoking Status: Never smoker Past Alcohol Use History: None Reported Past Drug Use History: None Reported - Past Family History Father Family Medical History: No Reported History Additional Family Medical History / Comment(s): Father had heart problems. He chewed tobacco, smoked and drank quit a bit of alcohol. Mother Family Medical History: Diabetes Mellitus Medications and Allergies Home Medications Medication Instructions Recorded Confirmed Type Aspirin EC [Ecotrin Low Dose] 81 mg PO DAILY@0800 03/14/21 10/23/21 History Clopidogrel [Plavix] 75 mg PO DAILY@0800 03/14/21 10/23/21 History Donepezil [Aricept] 10 mg PO HS@2100 03/14/21 10/23/21 History Isosorbide Mononitrate ER [Imdur] 30 mg PO DAILY@0800 03/14/21 10/23/21 History Magnesium Oxide 400 mg PO DAILY@0800 03/14/21 10/23/21 History glipiZIDE [Glucotrol] 5 mg PO DAILY@0800 03/14/21 10/23/21 History Benzocaine/Menthol [Dermoplast 1 spray TOPICAL BID PRN 04/16/21 10/23/21 History Pain Relieving [place]] Ferrous Sulfate [Iron (65 MG 325 mg PO BID@0800,1700 04/16/21 10/23/21 History Elemental)] Acetaminophen Tab [Tylenol] 650 mg PO Q6HR PRN tab 04/28/21 10/23/21 Rx Famotidine [Pepcid] 20 mg PO DAILY@0800 05/07/21 10/23/21 History INSULIN ASPART (NovoLOG) [NovoLOG See Protocol SQ ACHS 05/07/21 10/23/21 History (formulary)] L.acidoph,Paracasei, B.lactis 1 cap PO DAILY@0800 05/07/21 10/23/21 History [Probiotic] Magnesium Hydroxide [Milk of 2,400 mg PO DAILY PRN 05/07/21 10/23/21 History Magnesia] Melatonin 3 mg PO DAILY PRN 05/07/21 10/23/21 History Na Phos,M-B/Na Phos,Di-Ba [Fleet 133 ml RECTAL DAILY PRN 05/07/21 10/23/21 Hist ory Adult] Ondansetron [Zofran] 4 mg PO TID PRN 05/07/21 10/23/21 History Spironolactone [Aldactone] 12.5 mg PO DAILY@0800 05/07/21 10/23/21 History bisacodyL [Dulcolax] 10 mg RECTAL DAILY PRN 05/07/21 10/23/21 History HYDROcodone/APAP 5-325MG [[place] 1 tab PO Q6H PRN 06/03/21 10/23/21 History 5-325] Lidocaine 5% Cream 1 applic TOPICAL WE@0800 06/03/21 10/23/21 History Lidocaine 5% Cream 1 applic TOPICAL DAILY PRN 06/03/21 10/23/21 History Atorvastatin [Lipitor] 40 mg PO HS@2100 10/23/21 10/23/21 History Carvedilol [Coreg] 6.25 mg PO BID@0800,1700 10/23/21 10/23/21 History Collagenase [Santyl Ointment] 1 applic TOPICAL DAILY 10/23/21 10/23/21 History Dakins(1/2 Strength) Solution 0.25% 1 applic TOPICAL DAILY 10/23/21 10/23/21 History Empagliflozin [Jardiance] 10 mg PO DAILY@0800 10/23/21 10/23/21 History Furosemide [Lasix] 20 mg PO DAILY@0800 10/23/21 10/23/21 History Emmanuel Packet 1 packet PO BID@0800,1700 10/23/21 10/23/21 History Moxifloxacin HCl [Avelox] 400 mg PO DAILY@1700 10/23/21 10/23/21 History Sacubitril/Valsartan [Entresto 24 1 tab PO BID@0800,1700 10/23/21 10/23/21 History mg-26 mg Tablet] Allergies Allergy/AdvReac Type Severity Reaction Status Date / Time Sulfa (Sulfonamide Allergy Anaphylaxis Verified 10/23/21 21:19 Antibiotics) Physical Exam Vitals: Vital Signs Temp Pulse Resp BP Pulse Ox 10/24/21 06:00 80 16 135/61 10/23/21 23:00 90 16 129/69 98 10/23/21 19:44 97.7 F 16 118/50 100 Intake and Output 10/23/21 10/24/21 10/24/21 22:59 06:59 14:59 Output Total 1000 Balance -1000 Output: Urine 1000 Other: Weight 67 kg PHYSICAL EXAMINATION: Patient is lying in the bed comfortably, no acute distress, awake alert but confused. HEENT: Normocephalic. Neck is supple. Pupils reactive. Nostrils clear. Oral cavity is moist. Neck reveals no JVD, carotid bruits, or thyromegaly. CHEST EXAMINATION: Trachea is central. Symmetrical expansion. Lung dotson clear to auscultation and percussion. CARDIAC: Normal S1, S2 with no gallops. No murmurs ABDOMEN: Soft. Bowel sounds normal. No organomegaly. No abdominal bruits. Extremities: reveal no edema. No clubbing or cyanosis Neurologically awake, alert, oriented x1-2. patient does have left upper extremity weakness with contractures in the hand.. Skin: No rash or skin lesions. Psychiatric: Coperative. N could not be assisted this time. onsuicidal Musculoskeletal: No joint swelling or deformity. Results CBC & Chem 7: 10/23/21 20:44 10/25/21 08:39 Labs: Abnormal Lab Results - Last 24 Hours (Table) 10/23/21 10/23/21 10/23/21 Range/Units 20:44 20:44 22:09 RBC 3.32 L (3.80-5.40) m/uL Hgb 9.8 L (11.4-16.0) gm/dL Hct 31.2 L (34.0-46.0) % Sodium 133 L (137-145) mmol/L Potassium 5.2 H (3.5-5.1) mmol/L BUN 71 H (7-17) mg/dL Creatinine 1.06 H (0.52-1.04) mg/dL Glucose 231 H (74-99) mg/dL POC Glucose (mg/dL) (75-99) mg/dL Hemoglobin A1c (0.0-6.0) % Alkaline Phosphatase 166 H (38-126) U/L Albumin 3.4 L (3.5-5.0) g/dL Urine Glucose (UA) 4+ H (Negative) 10/24/21 10/24/21 10/24/21 Range/Units 01:59 05:37 07:54 RBC (3.80-5.40) m/uL Hgb (11.4-16.0) gm/dL Hct (34.0-46.0) % Sodium (137-145) mmol/L Potassium (3.5-5.1) mmol/L BUN (7-17) mg/dL Creatinine (0.52-1.04) mg/dL Glucose (74-99) mg/dL POC Glucose (mg/dL) 231 H 118 H (75-99) mg/dL Hemoglobin A1c 7.2 H (0.0-6.0) % Alkaline Phosphatase (38-126) U/L Albumin (3.5-5.0) g/dL Urine Glucose (UA) (Negative) Thrombosis Risk Factor Assmnt - DVT/VTE Prophylaxis DVT/VTE Prophylaxis: Pharmacologic Prophylaxis ordered Assessment and Plan Assessment: Acute versus subacute left-sided weakness mainly left upper extremity possible CVA. Left common carotid artery stenosis at 70%. Altered mental status possible metabolic encephalopathy versus worsening d ementia. Hyperglycemia with uncontrolled diabetes type 2 Hypovolemic hyponatremia Mild hyperkalemia due to acute kidney injury Acute kidney injury likely prerenal Chronic wound on the lower extremities. On wound care center follow-up. Diabetic peripheral neuropathy Hypertension Coronary artery history of CABG and prior stent placement Ischemic cardiomyopathy ejection fraction 30 to 35% and status post AICD placement DVT prophylax with heparin subcu Plan: Patient was given IV hydration in the ER. Encourage oral intake. PT OT and speech and swallow evaluation. Patient was started on aspirin and Plavix. Continue on Levaquin 750 mg every 48 hours. Follow-up wound culture reports. MRI of the brain could not be done due to AICD and repeat CT head for tomorrow as per neurology recommendations. Current with neurochecks. Follow-up B12 and folate levels. GI and DVT prophylaxis. Continue to follow closely. Neurology on board. Time with Patient: Greater than 30
[2021-10-24 16:33] LABS: Glucose,Whole Blood 217 mg/dL (75-99)
[2021-10-24] MEDS: LEVOFLOXACIN 750 MG TAB PO SCH (16:46)
[2021-10-24 20:12] LABS: Glucose,Whole Blood 78 mg/dL (75-99)
--- NOTE | 2021-10-24 20:12 | EEG ---
ELECTROENCEPHALOGRAM REPORT DATE OF SERVICE: 10/24/2021 CLINICAL HISTORY: This is a 81-year-old woman with altered mental status. The video EEG is obtained to evaluate for seizure activity and epileptiform discharges. The patient is not on any antiepileptic drug. EEG TYPE: A routine 21 channel EEG is performed with video using the 10/20 electrode system. DESCRIPTION: Wakefulness is obtained. During awake state, the background consists of low to moderate voltage of 7-7.5 hertz activity. There is no physiological stage 2 sleep architecture seen. There is no focal slowing. Interictal and ictal is none. ACTIVATION PROCEDURES: Photic stimulation and hyperventilation is not performed. CLINICAL INTERPRETATION: This is an abnormal routine EEG. The background slowing is suggestive of mild encephalopathy. Otherwise, there is no focal slowing, epileptiform discharge or seizure on the EEG. Clinical correlation is recommended. ROOSEVELT / WENDI: [id number] / [id number]
[2021-10-24] MEDS: DONEPEZIL 10 MG TAB PO SCH (22:35)
[2021-10-24] MEDS: ATORVASTATIN 40 MG TAB PO SCH (22:35)
[2021-10-25 02:12] LABS: Glucose,Whole Blood 102 mg/dL (75-99)
[2021-10-25] MEDS: INSULIN ASPART (NovoLOG) 100 UNIT/ML VIAL SQ SCH ×5 (05:50→20:32)
[2021-10-25 06:11] LABS: Glucose,Whole Blood 111 mg/dL (75-99)
[2021-10-25] MEDS: carvediloL 6.25 MG TAB PO SCH ×2 (09:06→17:05)
[2021-10-25] MEDS: ASPIRIN 325 MG TAB PO SCH (09:06)
[2021-10-25] MEDS: SPIRONOLACTONE 25 MG TAB PO SCH (09:06)
[2021-10-25] MEDS: CLOPIDOGREL 75 MG TAB PO SCH (09:06)
[2021-10-25] MEDS: FAMOTIDINE 20 MG TAB PO SCH (09:06)
[2021-10-25] MEDS: FERROUS SULFATE 325 MG TAB PO SCH ×2 (09:06→17:05)
[2021-10-25] MEDS: SACUBITRIL/VALSARTAN 24 MG-26 MG TABLET PO SCH ×2 (09:06→17:05)
[2021-10-25] MEDS: FUROSEMIDE 20 MG TAB PO SCH (09:06)
[2021-10-25] MEDS: ISOSORBIDE MONONITRATE ER 30 MG TAB.ER.24H PO SCH (09:07)
[2021-10-25] MEDS: HEPARIN SODIUM,PORCINE/PF 5,000 UNIT/0.5 ML SYRINGE SQ SCH ×2 (09:07→20:32)
[2021-10-25 09:30] VITALS: BMI 27.0
[2021-10-25 10:02] LABS: Albumin 3.5 g/dL (3.5-5.0); Total Bilirubin 0.8 mg/dL (0.2-1.3)
--- NOTE | 2021-10-25 10:32 | CT ---
EXAMINATION TYPE: CT brain wo con DATE OF EXAM: 10/25/2021 COMPARISON: CT dated 10/23/2021 HISTORY: Left hand weakness. CT DLP: 1099.4 mGycm Automated exposure control for dose reduction was used. TECHNIQUE: CT scan of the brain is performed without IV contrast administration. FINDINGS: Brain volume loss changes, likely age-related. Bilateral cerebral white matter hypodensities, likely representing chronic microvascular ischemic changes. Scattered arterial atherosclerotic calcification s. No acute intracranial hemorrhage. No gross acute cortical infarct. No midline shift, herniation or ve ntriculomegaly. Unremarkable basal cisterns, sella and CP angles. No gross space-occupying lesion, vasogenic edema or mass effect. Unremarkable orbits. Mucosal thickening of the maxillary sinuses and right sphenoid sinus compartment . Opacified right inferior mastoid air cells. Osteopenia. Degenerative changes of the TMJs. IMPRESSION: Brain volume loss changes and chronic microvascular ischemic changes as described above. No acute intracranial hemorrhage or gross acute cortical infarct. Further MRI assessment can be consi dered if clinically required. Incidental findings as described above.
[2021-10-25 11:45] LABS: Glucose,Whole Blood 272 mg/dL (75-99)
--- NOTE | 2021-10-25 14:02 | P.PN ---
Subjective Progress Note Date: 10/25/21 Principal diagnosis: Carotid stenosis Patient is seen and examined today as a follow-up. She still having some weakness in her left hand. No other focal deficits. She underwent a repeat CT of the brain today that showed brain volume loss changes and chronic microvascular ischemic changes. No acute intracranial hemorrhage or gross acute cortical infarct. She also underwent an EEG yesterday that showed abnormal EEG with background slowing suggestive of mild encephalopathy. Carotid duplex of reported arthrosclerotic changes with no significant hemodynamic stenosis. Objective - Vital Signs Vital signs: Vital Signs Temp 96.1 F L 10/25/21 04:00 Pulse 79 10/25/21 04:00 Resp 18 10/25/21 04:00 BP 108/62 10/25/21 04:00 Pulse Ox 98 10/25/21 04:00 FiO2 Intake & Output 10/24/21 10/25/21 10/25/21 18:59 06:59 18:59 Output Total 1000 Balance -1000 Weight 67 kg 67 kg Output: Urine 1000 Other: # Voids 1 1 - Exam General appearance: The patient is alert, oriented, appears in no acute distress. HET: Head is normocephalic and atraumatic. Pupils are equal and reactive. Neck: Supple without lymphadenopathy. Trachea midline. No audible carotid bruit. Extremities: Normal skin color and turgor. Bilateral lower extremities with dressings clean dry and intact. Neurological: Left hand grasp 4/5. Bilateral upper extremity with good tone and strength. Bilateral lower extremities good tone, right lower extremity was some increased weakness compared to left. Patient does complain of back pain as well . And has wounds on bilateral lower extremities. Patient is alert and oriented. Answers questions appropriately, speech is fluent. Tongue protrudes midline. There seems to be a slight left facial droop. Obtain slightly contracted. - Labs CBC & Chem 7: 10/23/21 20:44 10/25/21 08:39 Labs: Abnormal Lab Results - Last 24 Hours (Table) 10/24/21 10/25/21 10/25/21 Range/Units 16:31 02:10 06:09 Sodium (137-145) mmol/L Carbon Dioxide (22-30) mmol/L BUN (7-17) mg/dL Glucose (74-99) mg/dL POC Glucose (mg/dL) 217 H 102 H 111 H (75-99) mg/dL Alkaline Phosphatase (38-126) U/L 10/25/21 Range/Units 08:39 Sodium 134 L (137-145) mmol/L Carbon Dioxide 20 L (22-30) mmol/L BUN 40 H (7-17) mg/dL Glucose 103 H (74-99) mg/dL POC Glucose (mg/dL) (75-99) mg/dL Alkaline Phosphatase 158 H (38-126) U/L Assessment and Plan Assessment: 1. Left internal carotid artery stenosis, approximately 70% per CT angiogram head and neck, without evidence of significant hemodynamic stenosis on carotid duplex 2. Left hand weakness 3. Possible TIA/CVA 4. History of coronary artery disease status post bypass surgery and pacemaker 5. Diabetes mellitus with peripheral neuropathy 6. Chronic lower extremity wounds 7. Hypertension and hyperlipidemia Plan: 1. Continue symptomatic and supportive care 2. Carotid duplex reviewed 3. Continue aspirin, statin and Plavix 4. Continue with recommendations from neurology 5. Patient will follow-up with Dr. Gregorio for outpatient surveillance of carotids as well as lower extremity wounds. Thank you for this consultation, we will continue to follow. The impression and plan of care has been dictated as directed. Dr. Gregorio I performed a history and examination of this patient, discussed the same with the dictator. I agree with the dictator's note ,documented as a scribe. Any additional findings or plans will be noted.
--- NOTE | 2021-10-25 14:21 | P.PN ---
Subjective Progress Note Date: 10/25/21 Patient is a 81-year-old male with a known history of coronary bifurcation. Carotid artery bifurcation. Disease status post CABG in 2009 and history of AICD placement couple years ago, history of stent placement, hypertension, diabetes type 2, history of mild, chronic leg wound, cardiomyopathy status post AICD placement and other multiple medical problems presents to ER with complaints of left sided weakness. Patient states that she felt very weak in her legs mainly in the left side and also left upper extremity with contractures. Patient is somewhat poor historian. She is currently at half-way. According to nursing staff her family weakness for the past 1 week she has been having. She is also more confused for the past 1 month. No fever no chills. Denied any headache. No blurred vision. No slurred speech. No numbness or tingling sensation. Patient was brought to ER for evaluation. CT head on admission showed cerebral atrophy and no acute intracranial abnormality noted. CT angiogram of the head and neck showed approximate 70% stenosis at the distal LICA. Approximately 15% stenosis at the right carotid artery bifurcation. Minimal fusiform narrowing of the proximal right middle cerebral artery without hemodynamic stenosis. EKG showed ventricular paced rhythm. Chest x-ray showed moderate cardiomegaly there is some atelectasis right lung base which is increased compared to old exam. No heart failure seen. 2D echocardiogram showed left ventricular ejection fraction 30 to 35%. RVSP within normal limits. Moderate tricuspid regurgitation and mild mitral regurgitation. Laboratory test showed WBC 6.2 hemoglobin 9.8 and platelets 305 sodium 133 potassium 5.2 chloride 101 bicarb is 23 BUN 71 and creatinine 0.161.06, blood sugar 231 A1c 7.2 Liver enzymes alk phos 166 AST 24 ALT 18 and albumin 3.4 TSH within normal limits Urinalysis showed 4+ glucose. No evidence of infection. Patient is on follow-up with wound care center for chronic wound on the legs. 10/25/2021 Patient is currently sitting in chair. Awake alert and oriented. Hard of hearing. Otherwise denied any complaints of fever or chills. No headache or dizziness or lightheadedness. Patient is still having left upper extremity weakness. No complaints of chest pain or shortness of breath. Carotid duplex showed atherosclerotic changes with no significant hemodynamic stenosis. CT cervical spine showed degenerative changes of the cervical spine. EKG showed abnormal routine EEG background slowing is suggestive of mild encephalopathy. No focal slowing, epileptiform discharge or seizure on the EEG. Repeat CT today showed brain volume loss changes and chronic microvascular ischemic changes. No acute intracranial hemorrhage or process acute cortical infarct. Laboratory data showed sodium 134 potassium 5.0 chloride 104 bicarb is 20 BUN 40 and creatinine 2.92 Neurology and vascular surgery is on board. Current medications reviewed. Objective - Vital Signs Vital signs: Vital Signs Temp 97.8 F 10/25/21 12:58 Pulse 81 10/25/21 12:58 Resp 16 10/25/21 12:58 BP 124/67 10/25/21 12:58 Pulse Ox 97 10/25/21 12:58 FiO2 Intake & Output 10/24/21 10/25/21 10/25/21 18:59 06:59 18:59 Intake Total 243 Output Total 1000 Balance -1000 243 Weight 67 kg 67 kg Intake: Oral 243 Output: Urine 1000 Other: # Voids 1 1 - Exam PHYSICAL EXAMINATION: Patient is lying in the bed comfortably, no acute distress, awake alert but confused. HEENT: Normocephalic. Neck is supple. Pupils reactive. Nostrils clear. Oral cavity is moist. Neck reveals no JVD, carotid bruits, or thyromegaly. CHEST EXAMINATION: Trachea is central. Symmetrical expansion. Lung dotson clear to auscultation and percussion. CARDIAC: Normal S1, S2 with no gallops. No murmurs ABDOMEN: Soft. Bowel sounds normal. No organomegaly. No abdominal bruits. Extremities: reveal no edema. No clubbing or cyanosis Neurologically awake, alert, oriented x1-2. patient does have left upper extremity weakness with contractures in the hand.. Skin: No rash or skin lesions. Psychiatric: Coperative. N could not be assisted this time. onsuicidal Musculoskeletal: No joint swelling or deformity. - Labs CBC & Chem 7: 10/23/21 20:44 10/25/21 08:39 Labs: Abnormal Lab Results - Last 24 Hours (Table) 10/24/21 10/25/21 10/25/21 Range/Units 16:31 02:10 06:09 Sodium (137-145) mmol/L Carbon Dioxide (22-30) mmol/L BUN (7-17) mg/dL Glucose (74-99) mg/dL POC Glucose (mg/dL) 217 H 102 H 111 H (75-99) mg/dL Alkaline Phosphatase (38-126) U/L 10/25/21 10/25/21 Range/Units 08:39 11:41 Sodium 134 L (137-145) mmol/L Carbon Dioxide 20 L (22-30) mmol/L BUN 40 H (7-17) mg/dL Glucose 103 H (74-99) mg/dL POC Glucose (mg/dL) 272 H (75-99) mg/dL Alkaline Phosphatase 158 H (38-126) U/L Assessment and Plan Assessment: Acute versus subacute left-sided weakness mainly left upper extremity possible CVA. Repeat brain CT on 10/25/2021 showed no acute process. Left common carotid artery stenosis at 70%. Ultrasound of the carotids showed no significant atherosclerotic stenosis. Outpatient vascular surgery follow-up for cellulitis. Altered mental status possible metabolic encephalopathy versus worsening dementia. Hyperglycemia with uncontrolled diabetes type 2 Hypovolemic hyponatremia Mild hyperkalemia due to acute kidney injury Acute kidney injury likely prerenal Chronic wound on the lower extremities. On wound care center follow-up. Diabetic peripheral neuropathy Hypertension Coronary artery history of CABG and prior stent placement Ischemic cardiomyopathy ejection fraction 30 to 35% and status post AICD placement DVT prophylax with heparin subcu Plan: Patient was given IV hydration in the ER. Encourage oral intake. PT OT and speech and swallow evaluation. Patient was started on aspirin and Plavix and statins. Continue on Levaquin 750 mg every 48 hours. Follow-up wound culture reports. Wound care consult. MRI of the brain could not be done due to AICD and repeat CT head for tomorrow as per neurology recommendations. Continue with neurochecks. B12 and folate levels within normal limits.. GI and DVT prophylaxis. Continue to follow closely. Neurology on board. Time with Patient: Greater than 30
[2021-10-25] MEDS: SODIUM CHLORIDE 0.9% 1,000 ML IV SCH (15:22)
--- NOTE | 2021-10-25 15:38 | P.PN ---
Subjective Progress Note Date: 10/25/21 The patient is seen her left hand is about the same. Daughter is at bedside and feels patient is more awake and responsive today compared to yesterday. Daughter does feel left nasolabial flattening and left hand weakness are new. Patient denies that she leaned on her arm while at her nursing facility. Objective - Vital Signs Vital signs: Vital Signs Temp 97.8 F 10/25/21 12:58 Pulse 81 10/25/21 12:58 Resp 16 10/25/21 14:00 BP 124/67 10/25/21 12:58 Pulse Ox 97 10/25/21 12:58 FiO2 Intake & Output 10/24/21 10/25/21 10/25/21 18:59 06:59 18:59 Intake Total 243 Output Total 1000 Balance -1000 243 Weight 67 kg 67 kg Intake: Oral 243 Output: Urine 1000 Other: # Voids 1 1 - Exam GENERAL: The patient is lying in bed and is not in acute distress. NEUROLOGICAL: Higher mental function: The patient is awake, alert, oriented to self, place and time. Patient is following simple commands. No aphasia and no neglect. Cranial nerves: The pupils are round, equal and reactive to light and accommodation. Visual dotson are full to confrontation throughout. Extraocular movement is intact no nystagmus is noted. Facial sensation is normal to touch throughout. The facial strength is left nasolabial flattening. Tongue is midline and moved [id number] without any difficulty. No dysarthria is noted. Shoulder shrug is normal bilaterally. Motor: The strength is left hand senior customer service representative is 3, left hand/wrist extension is 0-1. Left foearm flexion is 4+. Otherwise right upper is 5/5. Lowers are 3-4 and limited because of pain (has old sores). Slightly increase tone over the left hand. Normal bulk. Cerebellum: Normal finger to nose bilaterally. Sensation: Sensation is normal to touch throughout. Reflexes (right/left): 1+ throughout. Plantars are mute bilaterally. Some of the workup during this hospital visit consisted of: TSH is 2.7-0. Potassium 5.2 sodium is 133. Creatinine is 1.06. Lipid panel is triglyceride 52, cholesterol 114, LDL 56 and HDL is 46. Vitamin B12 is 354 Serum folate is [address] of the head is reported as cerebral atrophy. No acute intracranial abnor mality. CT angiography of the head and next reported as exam shows approximately 70% stenosis at the distal left common carotid artery. There is approximately 50% stenosis at the right carotid artery bifurcation. Minimal fusiform narrowing of the proximal right middle cerebral artery without hemodynamic stenosis. Repeat CT head on 10/25/2021: It is reported as brain volume loss change and chronic microvascular ischemic changes. No acute intracranial hemorrhage or gross acute cortical infarct. Carotid duplex was reported as atherosclerotic changes with no significant hemodynamic stenosis as visualized. Next EKG is reported as electronic ventricular pacemaker. Abnormal rhythm EKG. 2-D echo was reported as global left ventricular dysfunction with some apical motion of the septum. Ejection fraction is probably around 30-35%. Moderate tricuspid regurgitation. Mild mitral regurgitation with annual calcification. There is a pacemaker wire in the right ventricle. Left atrial is normal in size. Routine EEG is abnormal. The background slowing suggestive of mild encephalopathy. Otherwise there is no focal slowing, epileptiform discharges or seizure on the EEG. CT cervical spine is reported as degenerative changes of the cervical spine and in the body it is reported as antral lithiasis C4 over C5 and C6 over C7 as well as C7 over T1 likely degenerative. Retrolithiasis C5 over cc as 6. Degenerative changes of the cervical spine with multilevel opposing endplate of osteophytosis, most evident C5-C6 and C6 E7 level. - Labs CBC & Chem 7: 10/23/21 20:44 10/25/21 08:39 Labs: Abnormal Lab Results - Last 24 Hours (Table) 10/24/21 10/25/21 10/25/21 Range/Units 16:31 02:10 06:09 Sodium (137-145) mmol/L Carbon Dioxide (22-30) mmol/L BUN (7-17) mg/dL Glucose (74-99) mg/dL POC Glucose (mg/dL) 217 H 102 H 111 H (75-99) mg/dL Alkaline Phosphatase (38-126) U/L 10/25/21 10/25/21 Range/Units 08:39 11:41 Sodium 134 L (137-145) mmol/L Carbon Dioxide 20 L (22-30) mmol/L BUN 40 H (7-17) mg/dL Glucose 103 H (74-99) mg/dL POC Glucose (mg/dL) 272 H (75-99) mg/dL Alkaline Phosphatase 158 H (38-126) U/L Assessment and Plan Assessment: Acute to subacute Left hand weakness (on examination had left hand/wrist weakness predominately extension and left nasolabial flattening). Likely acute to subacute ischemic stroke. Repeat CT head is unremarakable and possible small to be picked up (cannot obtain MRI since pacemaker). Left common carotid stenosis of about 70% per CTA but normal on carotid duplex. This would not explain left hand weakness. Worsening of confusion: Ecephalopathy likely multifactorial: Metabolic encephalopathy and possibly worsening of her demential/cognitive impairment---per daughter has intermittent confusion for past one year--currently improved. Cognitive impairment/dementia Diabetes mellitus Neuropathy Hpertension Cardiomyopathy status post CABG Coronary artery disease status post stent Pacemaker Plan: Cannot obtain MRI Brain since patient has pacemaker. Vascular surgery team is on board. Currently the patient is on aspirin 325 daily, Plavix 75 mg daily (patient was on home ASA 81 and Plavix 75mg daily). I stopped Plavix since failed and started on Brilinta 90mg 1 tab bid. From neurological persective to continue on dual antiplatelets 21 days (ASA and Brilinta) then stop ASA after 21 days. On Lipitor 40 mg daily. PT and OT are consulted Placed on neuro checks Placed cardiac monitoring Because of low normal vitamin B12 (300's) started on Vitamin B12 1000mcg daily. Consider EMG of the left upper extremity as an outpatient to rule out any underlying neuropathy. Consider cardiology consultation because of her cardiomyopathy and if not as inpatient can be seen by cardiology as outpatient. We'll defer the rest of the medical management to the primary team For DVT prophylaxis the patient is on subcu heparin 5000 units every 12 hours Patient is to follow-up with her neurologist as outpatient (Dr. Saez) within 1-2 weeks. The plan is discussed with patient and her daughter (Marily) who is at bedside. Otherwise no additional testing is needed and patient is clear for discharge. Mikhail Merida M.D. Neuro-hospitalist Time with Patient: Less than 30
[2021-10-25 16:41] LABS: Glucose,Whole Blood 200 mg/dL (75-99)
[2021-10-25 20:24] LABS: Glucose,Whole Blood 205 mg/dL (75-99)
[2021-10-25] MEDS: ATORVASTATIN 40 MG TAB PO SCH (20:32)
[2021-10-25] MEDS: HYDROcodone/APAP 5-325MG 1 EACH TAB PO PRN (20:32)
[2021-10-25] MEDS: DONEPEZIL 10 MG TAB PO SCH (20:32)
[2021-10-26 00:14] VITALS: RESP 18
[2021-10-26] MEDS: SODIUM CHLORIDE 0.9% 1,000 ML IV SCH (01:40)
[2021-10-26 01:47] LABS: Glucose,Whole Blood 142 mg/dL (75-99)
[2021-10-26] MEDS: INSULIN ASPART (NovoLOG) 100 UNIT/ML VIAL SQ SCH ×3 (06:07→17:19)
[2021-10-26 06:15] LABS: Glucose,Whole Blood 140 mg/dL (75-99)
[2021-10-26] MEDS ORDERED: CYANOCOBALAMIN 500 MCG TAB PO SCH (09:00)
[2021-10-26] MEDS: HEPARIN SODIUM,PORCINE/PF 5,000 UNIT/0.5 ML SYRINGE SQ SCH (09:34)
[2021-10-26] MEDS: FAMOTIDINE 20 MG TAB PO SCH (09:35)
[2021-10-26] MEDS: FUROSEMIDE 20 MG TAB PO SCH (09:35)
[2021-10-26] MEDS: SPIRONOLACTONE 25 MG TAB PO SCH (09:35)
[2021-10-26] MEDS: SACUBITRIL/VALSARTAN 24 MG-26 MG TABLET PO SCH ×2 (09:35→17:15)
[2021-10-26] MEDS: carvediloL 6.25 MG TAB PO SCH ×2 (09:35→17:15)
[2021-10-26] MEDS: ISOSORBIDE MONONITRATE ER 30 MG TAB.ER.24H PO SCH (09:35)
[2021-10-26] MEDS: FERROUS SULFATE 325 MG TAB PO SCH ×2 (09:35→17:15)
[2021-10-26] MEDS: CLOPIDOGREL 75 MG TAB PO SCH (09:35)
[2021-10-26] MEDS: ASPIRIN 325 MG TAB PO SCH (09:35)
--- NOTE | 2021-10-26 10:26 | P.PN ---
Subjective Progress Note Date: 10/26/21 Principal diagnosis: Carotid stenosis Patient is seen and examined today as a follow-up for carotid stenosis. She still having some weakness in her left hand. No other focal deficits. PT and OT have been consulted. Plavix has been changed to [place] per recommendations from neurology. Further follow-up with her neurologist Dr. Fletcher as an outpatient. Objective - Vital Signs Vital signs: Vital Signs Temp 97.9 F 10/26/21 04:00 Pulse 72 10/26/21 04:00 Resp 18 10/26/21 04:00 BP 112/74 10/26/21 04:00 Pulse Ox 98 10/26/21 04:00 FiO2 Intake & Output 10/25/21 10/26/21 10/26/21 18:59 06:59 18:59 Intake Total 483 358 Output Total 800 900 450 Balance -317 -900 -92 Weight 67 kg Intake: Oral 483 358 Output: Urine 800 900 450 Other: # Voids 1 2 # Bowel Movements 1 - Exam General appearance: The patient is alert, oriented, appears in no acute distress. HET: Head is normocephalic and atraumatic. Pupils are equal and reactive. Neck: Supple without lymphadenopathy. Trachea midline. No audible carotid bruit. Extremities: Normal skin color and turgor. Bilateral lower extremities with dressings clean dry and intact. Neurological: Left hand grasp 4/5. Bilateral upper extremity with good tone and strength. Bilateral lower extremities good tone, right lower extremity was some increased weakness compared to left. Patient does complain of back pain as well. And has wounds on bilateral lower extremities. Patient is alert and oriented. Answers questions appropriately, speech is fluent. Tongue protrudes midline. There seems to be a slight left facial droop. Obtain slightly contracted. - Labs CBC & Chem 7: 10/23/21 20:44 10/25/21 08:39 Labs: Abnormal Lab Results - Last 24 Hours (Table) 10/25/21 10/25/21 10/25/21 Range/Units 11:41 16:25 20:22 POC Glucose (mg/dL) 272 H 200 H 205 H (75-99) mg/dL 10/26/21 10/26/21 Range/Units 01:45 05:58 POC Glucose (mg/dL) 142 H 140 H (75-99) mg/dL Assessment and Plan Assessment: 1. Left internal carotid artery stenosis, approximately 70% per CT angiogram head and neck, without evidence of significant hemodynamic stenosis on carotid duplex 2. Left hand weakness 3. Possible TIA/CVA 4. History of coronary artery disease status post bypass surgery and pacemaker 5. Diabetes mellitus with peripheral neuropathy 6. Chronic lower extremity wounds 7. Hypertension and hyperlipidemia Plan: 1. Continue symptomatic and supportive care 2. Carotid duplex reviewed 3. Continue aspirin, statin and Brilinta 4. Continue with recommendations from neurology 5. Patient will follow-up with Dr. Gregorio for outpatient surveillance of carotids as well as lower extremity wounds. Thank you for this consultation, we will sign off at this time. The impression and plan of care has been dictated as directed. Dr. Solomon I performed a history and examination of this patient, discussed the same with the dictator. I agree with the dictator's note ,documented as a scribe. Any additional findings or plans will be noted.
[2021-10-26 11:52] LABS: Glucose,Whole Blood 262 mg/dL (75-99)
[2021-10-26] MEDS: HYDROcodone/APAP 5-325MG 1 EACH TAB PO PRN (13:40)
[2021-10-26] MEDS ORDERED: TICAGRELOR 90 MG TAB PO SCH (14:00)
--- NOTE | 2021-10-26 15:31 | P.DS ---
Providers Date of admission: 10/23/21 22:42 Expected date of discharge: 10/26/21 Attending physician: Debi Núñez Consults: 10/23/21 23:39 Consult Physician Routine Consulting Provider: Mikhail Merida Consult Reason/Comments: Left hand weakness Do you want consulting provider notified?: Yes 10/24/21 10:13 Consult Physician Routine Consulting Provider: Will Khan Consult Reason/Comments: carotid stenosis Do you want consulting provider notified?: Yes Primary care physician: Faraz Loza Hospital Course: Discharge diagnosis Acute versus subacute left-sided weakness mainly left upper extremity possible CVA. CT head negative. Repeat brain CT on 10/25/2021 showed no acute process also. Left common carotid artery stenosis at 70%. Ultrasound of the carotids showed no significant atherosclerotic stenosis. Outpatient vascular surgery follow-up for cellulitis. Altered mental status possible metabolic encephalopathy versus worsening dementia. Hyperglycemia with uncontrolled diabetes type 2 Hypovolemic hyponatremia Mild hyperkalemia due to acute kidney injury Acute kidney injury likely prerenal Chronic wound on the lower extremities. On wound care center follow-up. Diabetic peripheral neuropathy Hypertension Coronary artery history of CABG and prior stent placement Ischemic cardiomyopathy ejection fraction 30 to 35% and status post AICD placement DVT prophylax with heparin subcu Hospital course Patient is a 81-year-old male with a known history of coronary bifurcation. Carotid artery bifurcation. Disease status post CABG in 2009 and history of AICD placement couple years ago, history of stent placement, hypertension, diabetes type 2, history of mild, chronic leg wound, cardiomyopathy status post AICD placement and other multiple medical problems presents to ER with complaints of left sided weakness. Patient states that she felt very weak in her legs mainly in the left side and also left upper extremity with contractures. Patient is somewhat poor historian. She is currently at long term. According to nursing staff her family weakness for the past 1 week she has been having. She is also more confused for the past 1 month. No fever no chills. Denied any headache. No blurred vision. No slurred speech. No numbness or tingling sensation. Patient was brought to ER for evaluation. CT head on admission showed cerebral atrophy and no acute intracranial abnormality noted. CT angiogram of the head and neck showed approximate 70% stenosis at the distal LICA. Approximately 15% stenosis at the right carotid artery bifurcation. Minimal fusiform narrowing of the proximal right middle cerebral artery without hemodynamic stenosis. EKG showed ventricular paced rhythm. Chest x-ray showed moderate cardiomegaly there is some atelectasis right lung base which is increased compared to old exam. No heart failure seen. 2D echocardiogram showed left ventricular ejection fraction 30 to 35%. RVSP within normal limits. Moderate tricuspid regurgitation and mild mitral regurgitation. Laboratory test showed WBC 6.2 hemoglobin 9.8 and platelets 305 sodium 133 potassium 5.2 chloride 101 bicarb is 23 BUN 71 and creatinine 0.161.06, blood sugar 231 A1c 7.2 Liver enzymes alk phos 166 AST 24 ALT 18 and albumin 3.4 TSH within normal limits Urinalysis showed 4+ glucose. No evidence of infection. Patient is on follow-up with wound care center for chronic wound on the legs. 10/25/2021 Patient is currently sitting in chair. Awake alert and oriented. Hard of hearing. Otherwise denied any complaints of fever or chills. No headache or dizziness or lightheadedness. Patient is still having left upper extremity weakness. No complaints of chest pain or shortness of breath. Carotid duplex showed atherosclerotic changes with no significant hemodynamic stenosis. CT cervical spine showed degenerative changes of the cervical spine. EKG showed abnormal routine EEG background slowing is suggestive of mild encephalopathy. No focal slowing, epileptiform discharge or seizure on the EEG. Repeat CT today showed brain volume loss changes and chronic microvascular ischemic changes. No acute intracranial hemorrhage or process acute cortical infarct. Laboratory data showed sodium 134 potassium 5.0 chloride 104 bicarb is 20 BUN 40 and creatinine 2.92 Neurology and vascular surgery is on board. 10/26/2021 next patient currently is taking in the bed. Awake alert and oriented 3. Patient does have left facial and left upper extremity weakness still present. repeat CT head showed no acute CVA. Patient is on aspirin and Plavix at home. Plavix has been discontinued and started on bilinta as per neurology recommendations. aspirin for 21 days and continue withbilinta. Neurology follow-up as an outpatient. Otherwise patient will need follow-up with Dr. Gregorio for repeat surveillance of carotid stenosis. Patient is otherwise hemodynamically stable. No nausea or abdominal pain or diarrhea. Patient is cleared from neurology standpoint.. Patient will be continued on moxifloxacin as per recent lower extremity wound cultures. PHYSICAL EXAMINATION: Patient is lying in the bed comfortably, no acute distress, awake alert and oriented. HEENT: Normocephalic. Neck is supple. Pupils reactive. Nostrils clear. Oral cavity is moist. Neck reveals no JVD, carotid bruits, or thyromegaly. CHEST EXAMINATION: Trachea is central. Symmetrical expansion. Lung dotson clear to auscultation and percussion. CARDIAC: Normal S1, S2 with no gallops. No murmurs ABDOMEN: Soft. Bowel sounds normal. No organomegaly. No abdominal bruits. Extremities: reveal no edema. No clubbing or cyanosis Neurologically awake, alert, oriented x2-3. Minimal Left facial droop. patient does have left upper extremity weakness with contractures in the hand.. Skin: No rash or skin lesions. Psychiatric: Coperative. N could not be assisted this time. onsuicidal Musculoskeletal: No joint swelling or deformity. 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 Patient Condition at Discharge: Stable Plan - Discharge Summary Discharge Rx Participant: No New Discharge Prescriptions: New Ticagrelor [Brilinta] 90 mg PO BID #60 tab Cyanocobalamin [Vitamin B-12] 1,000 mcg PO DAILY #30 tab Continue Aspirin EC [Ecotrin Low Dose] 81 mg PO DAILY@0800 Donepezil [Aricept] 10 mg PO HS@2100 Benzocaine/Menthol [Dermoplast Pain Relieving [place]] 1 spray TOPICAL BID PRN PRN Reason: LEFT LEG WOUND PAIN bisacodyL [Dulcolax] 10 mg RECTAL DAILY PRN PRN Reason: Constipation Famotidine [Pepcid] 20 mg PO DAILY@0800 INSULIN ASPART (NovoLOG) [NovoLOG (formulary)] See Protocol SQ ACHS L.acidoph,Paracasei, B.lactis [Probiotic] 1 cap PO DAILY@0800 Magnesium Hydroxide [Milk of Magnesia] 2,400 mg PO DAILY PRN PRN Reason: Constipation Melatonin 3 mg PO DAILY PRN PRN Reason: Insomnia Na Phos,M-B/Na Phos,Di-Ba [Fleet Adult] 133 ml RECTAL DAILY PRN PRN Reason: Constipation Spironolactone [Aldactone] 12.5 mg PO DAILY@0800 HYDROcodone/APAP 5-325MG [Worden 5-325] 1 tab PO Q6H PRN PRN Reason: Pain Carvedilol [Coreg] 6.25 mg PO BID@0800,1700 Moxifloxacin HCl [Avelox] 400 mg PO DAILY@1700 Collagenase [Santyl Ointment] 1 applic TOPICAL DAILY Furosemide [Lasix] 20 mg PO DAILY@0800 Dakins(1/2 Strength) Solution 0.25% 1 applic TOPICAL DAILY Atorvastatin [Lipitor] 40 mg PO HS@2100 Magnesium Oxide 400 mg PO DAILY@0800 glipiZIDE [Glucotrol] 5 mg PO DAILY@0800 Isosorbide Mononitrate ER [Imdur] 30 mg PO DAILY@0800 Ferrous Sulfate [Iron (65 MG Elemental)] 325 mg PO BID@0800,1700 Acetaminophen Tab [Tylenol] 650 mg PO Q6HR PRN tab PRN Reason: Mild Pain Or Fever > 100.5 Ondansetron [Zofran] 4 mg PO TID PRN PRN Reason: Nausea Lidocaine 5% Cream 1 applic TOPICAL DAILY PRN PRN Reason: WOUND PAIN Lidocaine 5% Cream 1 applic TOPICAL WE@0800 Emmanuel Packet 1 packet PO BID@0800,1700 Sacubitril/Valsartan [Entresto 24 mg-26 mg Tablet] 1 tab PO BID@0800,1700 Empagliflozin [Jardiance] 10 mg PO DAILY@0800 Discontinued Clopidogrel [Plavix] 75 mg PO DAILY@0800 Discharge Medication List Aspirin EC [Ecotrin Low Dose] 81 mg PO DAILY@0800 03/14/21 [History] Donepezil [Aricept] 10 mg PO HS@2100 03/14/21 [History] Isosorbide Mononitrate ER [Imdur] 30 mg PO DAILY@0800 03/14/21 [History] Magnesium Oxide 400 mg PO DAILY@0800 03/14/21 [History] glipiZIDE [Glucotrol] 5 mg PO DAILY@0800 03/14/21 [History] Benzocaine/Menthol [Dermoplast Pain Relieving [place]] 1 spray TOPICAL BID PRN 04/16/21 [History] Ferrous Sulfate [Iron (65 MG Elemental)] 325 mg PO BID@0800,1700 04/16/21 [History] Acetaminophen Tab [Tylenol] 650 mg PO Q6HR PRN tab 04/28/21 [Rx] Famotidine [Pepcid] 20 mg PO DAILY@0800 05/07/21 [History] INSULIN ASPART (NovoLOG) [NovoLOG (formulary)] See Protocol SQ ACHS 05/07/21 [History] L.acidoph,Paracasei, B.lactis [Probiotic] 1 cap PO DAILY@0800 05/07/21 [History] Magnesium Hydroxide [Milk of Magnesia] 2,400 mg PO DAILY PRN 05/07/21 [History] Melatonin 3 mg PO DAILY PRN 05/07/21 [History] Na Phos,M-B/Na Phos,Di-Ba [Fleet Adult] 133 ml RECTAL DAILY PRN 05/07/21 [History] Ondansetron [Zofran] 4 mg PO TID PRN 05/07/21 [History] Spironolactone [Aldactone] 12.5 mg PO DAILY@0800 05/07/21 [History] bisacodyL [Dulcolax] 10 mg RECTAL DAILY PRN 05/07/21 [History] HYDROcodone/APAP 5-325MG [Worden 5-325] 1 tab PO Q6H PRN 06/03/21 [History] Lidocaine 5% Cream 1 applic TOPICAL WE@0800 06/03/21 [History] Lidocaine 5% Cream 1 applic TOPICAL DAILY PRN 06/03/21 [History] Atorvastatin [Lipitor] 40 mg PO HS@2100 10/23/21 [History] Carvedilol [Coreg] 6.25 mg PO BID@0800,1700 10/23/21 [History] Collagenase [Santyl Ointment] 1 applic TOPICAL DAILY 10/23/21 [History] Dakins(1/2 Strength) Solution 0.25% 1 applic TOPICAL DAILY 10/23/21 [History] Empagliflozin [Jardiance] 10 mg PO DAILY@0800 10/23/21 [History] Furosemide [Lasix] 20 mg PO DAILY@0800 10/23/21 [History] Emmanuel Packet 1 packet PO BID@0800,1700 10/23/21 [History] Moxifloxacin HCl [Avelox] 400 mg PO DAILY@1700 10/23/21 [History] Sacubitril/Valsartan [Entresto 24 mg-26 mg Tablet] 1 tab PO BID@0800,1700 10/23/21 [History] Cyanocobalamin [Vitamin B-12] 1,000 mcg PO DAILY #30 tab 10/26/21 [Rx] Ticagrelor [Brilinta] 90 mg PO BID #60 tab 10/26/21 [Rx] Follow up Appointment(s)/Referral(s): Faraz Loza MD [Primary Care Provider] - 1-2 days Walter Fletcher MD [REFERRING] - 1 Week Discharge Disposition: TRANSFER TO SNF/ECF
[2021-10-26 16:07] VITALS: BP 122/64; PULSE 76; TEMP 98.1
[2021-10-26] MEDS: LEVOFLOXACIN 750 MG TAB PO SCH (17:15)
--- NOTE | 2021-10-30 09:01 | CDI ---
Documentation Clarification Form Date: 10/30/21 From: Fanny Grimaldo Admit Date: 10/23/2021 10:42:00 PM Patient Name: Lilia Boateng Visit Number: [id number] Discharge Date: 10/26/2021 05:49:00 PM ATTENTION: The Clinical Documentation Specialists (CDI) and [facility] Coding Staff appreciate your assistance in clarifying documentation. Please respond to the clarification below the line at the bottom and electronically sign. The CDI & [facility] Coding staff will review the response and follow-up if needed. Please note: Queries are made part of the Legal Health Record. If you have any questions, please contact the author of this message via ITS. Dr. Angelic Zurita, A buttock pressure ulcer Stage I, right torres pressure ulcer Stage II, left calf pressure ulcer Stage III and left heel pressure ulcer Stage II is documented by Wound Care in the Wound Assessment history on 10/24 & 10/25. Based on this information and the findings below, is there an additional diagnosis that is clinically appropriate for this patient? History/Risk Factors: cerebral infarction, metabolic encephalopathy, MEAGHAN, cardiomyopathy, hyponatremia, atelectasis, DM type 2-vascular disease, polyneuropathy, hyperglycemia, HTN w CHF, dementia w cerebral atrophy, HLD Clinical Indicators: Patient has chronic wounds on both lower extremities and goes to wound care. Location: see above Treatment: Uses wound care Is there an additional diagnoses that are clinically appropriate for this patient? [ x ] Buttock Pressure Ulcer Stage 1, right or left [x ] Right torres Pressure Ulcer Stage 2 [ x ] Left calf Pressure Ulcer Stage 3 [ x ] Left heel Pressure Ulcer Stage 2 [ ] [insert location of ulcer] Deep tissue injury [ ] Other condition, please specify [ ] Unable to determine Clinical Definitions: Stage 1 Pressure Ulcer: intact skin, non-blanching redness of local area Stage 2 Pressure Ulcer: Partial thickness, loss of dermis, pink wound bed Stage 3 Pressure Ulcer: Full thickness tissue loss Stage 4 Pressure Ulcer: Full thickness tissue loss with exposed bone, tendon, or muscle. Unstageable pressure ulcer: Full thickness tissue loss in which the base of the ulcer is covered by slough (yellow, padilla, broussard, green or brown) and/or eschar (padilla, brown or black) in the wound bed. MTDD
--- NOTE | 2021-10-30 09:15 | CDI ---
Documentation Clarification Form Date: 10/30/21 From: Fanny Grimaldo Admit Date: 10/23/2021 10:42:00 PM Patient Name: Lilia Boateng Visit Number: [id number] Discharge Date: 10/26/2021 05:49:00 PM ATTENTION: The Clinical Documentation Specialists (CDI) and [facility] Coding Staff appreciate your assistance in clarifying documentation. Please respond to the clarification below the line at the bottom and electronically sign. The CDI & [facility] Coding staff will review the response and follow-up if needed. Please note: Queries are made part of the Legal Health Record. If you have any questions, please contact the author of this message via ITS. Dr. Angelic Zurita, Your patient has the documented diagnosis of unspecified CHF in ED Note, both consults. Additional information regarding the type of CHF is requested. History/Risk Factors: cerebral infarction, metabolic encephalopathy, MEAGHAN, cardiomyopathy, hyponatremia, atelectasis, DM type 2-vascular disease, polyneuropathy, hyperglycemia, HTN , dementia w cerebral atrophy, HLD Clinical Indicators: known history of coronary bifurcation. Carotid artery bifurcation. Disease status post CABG in 2009 and history of AICD placement couple years ago, history of stent placement, hypertension, diabetes type 2, history of mild, chronic leg wound, cardiomyopathy status post AICD placement and other multiple medical problems. VS/Pulse OX: T97.7, P 90, R 16, BP 118/50, O2 sat 10/98/69 BNP: None available Echocardiogram Results: Mildly increased septal wall thickness. Mildly increased posterior wall thickness. Grade 1 diastolic dysfunction. Left ventricular ejection fraction is estimated at 30-35%. Chest X Ray: Chest x-ray showed moderate cardiomegaly there is some atelectasis right lung base which is increased compared to old exam. No heart failure seen. Treatment: Home meds - Lasix 20 mg PO, Entresto 24 mg-26 mg PO BID, In your professional opinion, can you please clarify the type of CHF if known? [ ] Chronic Systolic Heart Failure (reduced EF) [ ] Chronic Diastolic Heart Failure (preserved EF) [ x ] Chronic Systolic & Diastolic Heart Failure [ ] Other, please specify [ ] Unable to determine MTDD
== END 2021-10-26 17:49 | DRG 64 ==
LOC: EC 19:39 → 3SCARD 22:42
PROVIDERS: ADMIT Hospitalist; ATTEND Hospitalist
DX: I63.9 Cerebral infarction, unspecified (principal); L89.893 Pressure ulcer of other site, stage 3; G93.41 Metabolic encephalopathy; N17.9 Acute kidney failure, unspecified; I42.9 Cardiomyopathy, unspecified; E87.1 Hypo-osmolality and hyponatremia; I50.42 Chronic combined systolic (congestive) and diastolic (congestive) heart failure; J98.11 Atelectasis; L89.301 Pressure ulcer of unspecified buttock, stage 1; I66.01 Occlusion and stenosis of right middle cerebral artery; E11.42 Type 2 diabetes mellitus with diabetic polyneuropathy; D64.9 Anemia, unspecified; L89.892 Pressure ulcer of other site, stage 2; L89.622 Pressure ulcer of left heel, stage 2; E11.51 Type 2 diabetes mellitus with diabetic peripheral angiopathy without gangrene; E11.65 Type 2 diabetes mellitus with hyperglycemia; I11.0 Hypertensive heart disease with heart failure; E86.1 Hypovolemia; F02.80 Dementia in other diseases classified elsewhere, unspecified severity, without behavioral disturbance, psychotic disturbance, mood disturbance, and anxiety; G31.9 Degenerative disease of nervous system, unspecified; Z79.4 Long term (current) use of insulin; Z20.822 Contact with and (suspected) exposure to COVID-19; E78.5 Hyperlipidemia, unspecified; I65.22 Occlusion and stenosis of left carotid artery; R29.810 Facial weakness; R29.703 NIHSS score 3; H91.90 Unspecified hearing loss, unspecified ear; E87.5 Hyperkalemia; I08.1 Rheumatic disorders of both mitral and tricuspid valves; I25.10 Atherosclerotic heart disease of native coronary artery without angina pectoris; I25.5 Ischemic cardiomyopathy; M24.542 Contracture, left hand; R32 Unspecified urinary incontinence; I25.2 Old myocardial infarction; Z79.82 Long term (current) use of aspirin; Z79.02 Long term (current) use of antithrombotics/antiplatelets; Z79.84 Long term (current) use of oral hypoglycemic drugs; Z79.899 Other long term (current) drug therapy; Z95.810 Presence of automatic (implantable) cardiac defibrillator; Z95.1 Presence of aortocoronary bypass graft; Z87.01 Personal history of pneumonia (recurrent); Z86.14 Personal history of Methicillin resistant Staphylococcus aureus infection; Z95.5 Presence of coronary angioplasty implant and graft; Z90.710 Acquired absence of both cervix and uterus; Z87.42 Personal history of other diseases of the female genital tract; Z96.651 Presence of right artificial knee joint; Z87.448 Personal history of other diseases of urinary system; Z98.890 Other specified postprocedural states; Z88.2 Allergy status to sulfonamides; Z81.2 Family history of tobacco abuse and dependence; Z81.1 Family history of alcohol abuse and dependence; Z83.3 Family history of diabetes mellitus
CPT/HCPCS: 36415; 70450; 70496; 70498; 71046; 72125; 80053; 80061; 81003; 82140; 82607; 82746; 83036; 83735; 84100; 84443; 84484; 85025; 85610; 85730; 87635; 93005; 93306; 93880; 95816; 96360; 96361; 96372; 99285

== ENCOUNTER 2024-08-03 16:48 | Inpatient (IN) | payer MEDICARE ==
--- NOTE | 2024-08-03 17:52 | ED ---
Recheck HPI - General Source: patient, RN notes reviewed Mode of arrival: ambulatory Limitations: no limitations <ManjitTony - Last Filed: 08/03/24 17:51> - General Source: patient, RN notes reviewed, old records reviewed Mode of arrival: ambulatory Limitations: no limitations - History of Present Illness MD Complaint: abnormal lab, other (Patient sent in for abnormal lab testing elevated white blood cells and potassium) Returns Today for: Called Because of Abnormal Lab/Test Symptoms Since Prior Visit: worsening pain Context: called for abnormal lab result Associated Symptoms: shortness of breath Treatments Prior to Arrival: other <David Adams - Last Filed: 08/09/24 17:54> - General Chief Complaint: Recheck/Abnormal Lab/Rx Stated Complaint: Abn labs Time Seen by Provider: 08/03/24 17:03 - History of Present Illness Initial Comments: Quick note: This is an 84-year-old female presenting from [facility] for abnormal lab work and right lower chest pain x 10 days. Patient endorses pain near her right lower ribs, stating that chest x-ray and lab work were possibly abnormal at [facility], causing them to send her to the ER for further evaluation/workup. Patient endorses associated cough. Patient is otherwise a poor historian. (Tony Saravia) This is an 84-year-old female to the ER for evaluation patient presents from [facility] for abnormal lab testing patient states she has pain on the right side diffuse chest pain diffuse abdominal pain and weakness. Patient is a rather poor historian here in the ER unsure of why she is here (David Adams) - Related Data Home Medications Medication Instructions Recorded Confirmed Aspirin EC [Ecotrin Low Dose] 81 mg PO DAILY@0800 03/14/21 08/03/24 Donepezil [Aricept] 10 mg PO HS@2100 03/14/21 08/03/24 Isosorbide Mononitrate ER [Imdur] 30 mg PO DAILY@0800 03/14/21 08/03/24 Magnesium Oxide 400 mg PO DAILY@0800 03/14/21 08/03/24 Benzocaine/Menthol [Dermoplast 1 spray TOPICAL BID PRN 04/16/21 08/03/24 Pain Relieving [place]] Ferrous Sulfate [Iron (65 MG 325 mg PO BID@0800,1700 04/16/21 08/03/24 Elemental)] Famotidine [Pepcid] 20 mg PO DAILY@0800 05/07/21 08/03/24 INSULIN ASPART (NovoLOG) [NovoLOG 3 unit SQ BID@1100,1700 05/07/21 08/03/24 (formulary)] L.acidoph,Paracasei, B.lactis 1 cap PO DAILY@0800 05/07/21 08/03/24 [Probiotic] Melatonin 3 mg PO DAILY PRN 05/07/21 08/03/24 Ondansetron [Zofran] 4 mg PO TID PRN 05/07/21 08/03/24 Spironolactone [Aldactone] 12.5 mg PO DAILY@0800 05/07/21 08/03/24 bisacodyL [Dulcolax] 10 mg RECTAL DAILY PRN 05/07/21 08/03/24 HYDROcodone/APAP 5-325MG [[place] 1 tab PO Q6H PRN 06/03/21 08/03/24 5-325] Atorvastatin [Lipitor] 40 mg PO HS@2100 10/23/21 08/03/24 Empagliflozin [Jardiance] 10 mg PO DAILY@0800 10/23/21 08/03/24 Furosemide [Lasix] 20 mg PO DAILY@0800 10/23/21 08/03/24 Emmanuel Packet 1 packet PO BID@0800,1700 10/23/21 08/03/24 Sacubitril/Valsartan [Entresto 24 1 tab PO BID@0800,1700 10/23/21 08/03/24 mg-26 mg Tablet] carvediloL [Coreg] 6.25 mg PO BID@0800,1700 10/23/21 08/03/24 Cholecalciferol (Vitamin D3) 100 mcg PO DAILY@0800 08/03/24 08/03/24 [Vitamin D3 (50 Mcg = 2000 Iu)] Eucerin Advanced Repair Cream 1 applic TOPICAL DAILY 08/03/24 08/03/24 Folic Acid 0.4 mg PO DAILY@0800 08/03/24 08/03/24 INSULIN ASPART (NovoLOG) [NovoLOG See Protocol SQ ACHS 08/03/24 08/03/24 (formulary)] Insulin Degludec [Tresiba 25 units SQ HS@212908/03/24 08/03/24 Flextouch U-100 Pen] Ipratropium-Albuterol Nebulize 3 ml INHALATION RT-DAILY@17008/03/24 08/03/24 [Duoneb 0.5 mg-3 mg/3 ml Soln] Ipratropium-Albuterol Nebulize 3 ml INHALATION RT-Q6H PRN 08/03/24 08/03/24 [Duoneb 0.5 mg-3 mg/3 ml Soln] Lactulose 10 gm PO BID@0800,1700 08/03/24 08/03/24 Lidocaine 5% Cream 1 applic TOPICAL DAILY PRN 08/03/24 08/03/24 Liquacel 30 ml PO DAILY@0808/03/24 08/03/24 Loperamide [Imodium] 2 mg PO Q6H PRN 08/03/24 08/03/24 Magnesium Hydroxide [Milk of 7,200 mg PO Q2D PRN 08/03/24 08/03/24 Magnesia Concentrate] Multivitamins, Thera [Multivitamin 1 tab PO DAILY@17008/03/24 08/03/24 (formulary)] Mylanta Double Strength 10 ml PO Q4H PRN 08/03/24 08/03/24 190-960-82su/5ml Patiromer Calcium Sorbitex 8.4 gm PO TH@1200 08/03/24 08/03/24 [Veltassa] Semaglutide [Ozempic] 0.25 mg SQ WE@212908/03/24 08/03/24 allopurinoL [Zyloprim] 100 mg PO DAILY@0800 08/03/24 08/03/24 guaiFENesin [guaiFENesin Oral 200 mg PO Q4H PRN 08/03/24 08/03/24 Solution] guaiFENesin [guaiFENesin Oral 200 mg PO QID 08/03/24 08/03/24 Solution] Previous Rx's Medication Instructions Recorded Acetaminophen Tab [Tylenol] 650 mg PO Q6HR PRN tab 04/28/21 Allergies Allergy/AdvReac Type Severity Reaction Status Date / Time Sulfa (Sulfonamide Allergy Anaphylaxis Verified 08/03/24 19:31 Antibiotics) Review of Systems ROS Other: All systems not noted in ROS Statement are negative. <Tony Saravia - Last Filed: 08/03/24 17:51> ROS Other: All systems not noted in ROS Statement are negative. <David Adams - Last Filed: 08/09/24 17:54> ROS Statement: Those systems with pertinent positive or pertinent negative responses have been documented in the HPI. Past Medical History Past Medical History: Coronary Artery Disease (CAD), Heart Failure, Dementia, Diabetes Mellitus, Hypertension, Myocardial Infarction (AR), Pneumonia, Vascular Disorder Additional Past Medical History / Comment(s): Pt recently admitted to [facility] on 03/14/21 with CHF/L pleural effusion. Other hx: Chronic L calf wound/WCC, NIDM type II, neuropathy L foot/leg, cardiomyopathy/sees Dr Knight in [place], MIs, mild cognitive impairment, incontinence, iron anemia, hypmagnesemia Last Myocardial Infarction Date:: unsure History of Any Multi-Drug Resistant Organisms: MRSA Date of last positivie culture/infection: 10/11/21 MDRO Source:: Left Foot & Leg Past Surgical History: AICD, Bladder Surgery, Coronary Bypass/CABG, Heart Catheterization, Heart Catheterization With Stent, Hysterectomy, Joint Replacement, Pacemaker Additional Past Surgical History / Comment(s): 10/2020 AICD/pacer, PCI stents, 2010 CABG 3 vessel, L leg wound I&D, bkadder suspension, ovarian cyst removal, D&C, rectocele, colonoscopy, total r knee arthroplasty. Past Anesthesia/Blood Transfusion Reactions: No Reported Reaction Date of Last Stent Placement:: unknown Type of Cardiac Device: AICD Device Placement Date:: 2020 Past Psychological History: No Psychological Hx Reported Smoking Status: Never smoker Past Alcohol Use History: None Reported Past Drug Use History: None Reported - Past Family History Father Family Medical History: No Reported History Additional Family Medical History / Comment(s): Father had heart problems. He chewed tobacco, smoked and drank quit a bit of alcohol. Mother Family Medical History: Diabetes Mellitus <Tony Saravia - Last Filed: 08/03/24 17:51> General Exam Limitations: no limitations <Tony Saravia - Last Filed: 08/03/24 17:51> General appearance: alert, in no apparent distress Head exam: Present: atraumatic, normocephalic, normal inspection Eye exam: Present: normal appearance, PERRL, EOMI. Absent: scleral icterus, conjunctival injection, periorbital swelling ENT exam: Present: normal exam, mucous membranes moist Neck exam: Present: normal inspection. Absent: tenderness, meningismus, lymphadenopathy Respiratory exam: Present: normal lung sounds bilaterally. Absent: respiratory distress, wheezes, rales, rhonchi, stridor Cardiovascular Exam: Present: regular rate, normal rhythm, normal heart sounds. Absent: systolic murmur, diastolic murmur, rubs, gallop, clicks GI/Abdominal exam: Present: soft, normal bowel sounds. Absent: distended, tenderness, guarding, rebound, rigid Extremities exam: Present: normal inspection, full ROM, normal capillary refill. Absent: tenderness, pedal edema, joint swelling, calf tenderness Back exam: Present: normal inspection Neurological exam: Present: alert, oriented X3, CN II-XII intact Psychiatric exam: Present: normal affect, normal mood Skin exam: Present: warm, dry, intact, normal color. Absent: rash <David Adams - Last Filed: 08/09/24 17:54> - General Exam Comments Initial Comments: Visual Physical Exam Vital signs reviewed General: Well-appearing, nontoxic, no acute distress. Patient is seated in wheelchair Head: Normocephalic, atraumatic Eyes: PERRLA, EOMI ENT: Airway patent Chest: Nonlabored breathing Skin: No visual rash, normal skin tone Neuro: Alert and oriented 3 Musculoskeletal: No gross abnormalities (Manjit,Tony) Course <David Adams - Last Filed: 08/09/24 17:54> Vital Signs 08/03/24 08/03/24 08/03/24 16:56 21:51 21:57 Temperature 97.9 F 98.8 F Pulse Rate 82 105 H 75 Pulse Rate [ Pulse Oximetery ] Respiratory 16 20 Rate Blood Pressure 148/72 93/80 Blood Pressure [Supine] O2 Sat by Pulse 98 98 Oximetry 08/03/24 08/03/24 08/04/24 22:05 22:37 02:11 Temperature Pulse Rate 78 100 93 Pulse Rate [ Pulse Oximetery ] Respiratory 18 18 Rate Blood Pressure 103/52 117/56 Blood Pressure [Supine] O2 Sat by Pulse 97 98 Oximetry 08/04/24 08/04/24 08/04/24 04:53 07:51 10:37 Temperature 98.8 F Pulse Rate 75 89 87 Pulse Rate [ Pulse Oximetery ] Respiratory 18 18 18 Rate Blood Pressure 112/45 126/50 125/76 Blood Pressure [Supine] O2 Sat by Pulse 99 99 99 Oximetry 08/04/24 08/04/24 15:49 20:00 Temperature 97.9 F 97.8 F Pulse Rate 85 Pulse Rate [ 58 L Pulse Oximetery ] Respiratory 18 19 Rate Blood Pressure 122/56 Blood Pressure 120/57 [Supine] O2 Sat by Pulse 97 94 L Oximetry - Reevaluation(s) Reevaluation #1: 08/03/24 22:46 Medical records reviewed (David Adams) Reevaluation #2: 08/03/24 22:46 Patient symptoms mildly improving here in the ER (David Adams) Reevaluation #3: 08/03/24 22:46 Patient informed of results questions answered (David Adams) Reevaluation #4: Was pt. sent in by a medical professional or institution (, PA, ROD MILL OPERATOR, urgent c are, hospital, or halfway...) When possible be specific @ -no Did you speak to anyone other than the patient for history (EMS, parent, family, police, friend...)? What history was obtained from this source @ -no Did you review nursing and triage notes (agree or disagree)? Why? @ -agree Are old charts reviewed (outside hosp., previous admission, EMS record, old EKG, old radiological studies, urgent care reports/EKG's, halfway records)? Report findings @ -yes Differential Diagnosis (chest pain, altered mental status, abdominal pain women, abdominal pain men, vaginal bleeding, weakness, fever, dyspnea, syncope, headache, dizziness, GI bleed, back pain, seizure, CVA, palpatations, mental health, musculoskeletal)? @ -prior EKG interpreted by me (3pts min.). @ -yes X-rays interpreted by me (1pt min.). @ -yes positive for pulmonary edema CT interpreted by me (1pt min.). @ -no U/S interpreted by me (1pt. min.). @ -no What testing was considered but not performed or refused? (CT, X-rays, U/S, labs)? Why? @ -none What meds were considered but not given or refused? Why? @ -none Did you discuss the management of the patient with other professionals (professionals i.e. , PA, ROD MILL OPERATOR, lab, RT, psych nurse, psychotherapist social worker, corporate lawyer, teacher, ordnance officer, block and case maker)? Give summary @ -no Was smoking cessation discussed for >3mins.? @ -no Was critical care preformed (if so, how long)? @ -yes31 Were there social determinants of health that impacted care today? How? (Homelessness, low income, unemployed, alcoholism, drug addiction, transportation, low edu. Level, literacy, decrease access to med. care, retirement, rehab)? @ -none Was there de-escalation of care discussed even if they declined (Discuss DNR or withdrawal of care, Hospice)? DNR status @ -no What co-morbidities impacted this encounter? (DM, HTN, Smoking, COPD, CAD, Cancer, CVA, ARF, Chemo, Hep., AIDS, mental health diagnosis, sleep apnea, morbid obesity)? @ -none Was patient admitted / discharged? Hospital course, mention meds given and route, prescriptions, significant lab abnormalities, going to OR and other pertinent info. @ - 84 female will be admitted with RSV, signs and symptoms of pulmonary edema, elevated white blood cell count and elevated potassium Admitted Undiagnosed new problem with uncertain prognosis? @ -no Drug Therapy requiring intensive monitoring for toxicity (Heparin, Nitro, Insulin, Cardizem)? @ -no Were any procedures done? @ -no Diagnosis/symptom? @ -RSV with hypoxia Acute, or Chronic, or Acute on Chronic? @ -Acute Uncomplicated (without systemic symptoms) or Complicated (systemic symptoms)? @ -Complicated Side effects of treatment? @ -no Exacerbation, Progression, or Severe Exacerbation? @ -exacerbation Poses a threat to life or bodily function? How? (Chest pain, USA, AR, pneumonia, PE, COPD, DKA, ARF, appy, cholecystitis, CVA, Diverticulitis, Homicidal, Suicidal, threat to staff... and all critical care pts) @ -yes acute respiratory distress (David Adams) Reevaluation #5: Differential Chest Pain: Stable Angina, Unstable Angina, STEMI, NSTEMI Aortic Dissection, Pneumothorax, Musculoskeletal, Esophageal Spasm GERD, Cholecystitis, Pancreatitis, Zoster, this is not meant to be an all-inclusive list. (David Adams) - Consultations Consultation #1: Spoke with [facility] who agrees to admit this patient (David Adams) Medical Decision Making <Tony Saravia - Last Filed: 08/03/24 17:51> - Lab Data Result diagrams: 08/09/24 02:46 08/09/24 02:46 - EKG Data -: EKG Interpreted by Me (EKG is paced 95 CT 152 QRS 137 QTc 435) - Radiology Data Radiology results: report reviewed (Chest x-ray positive pulmonary edema), image reviewed <David Adams - Last Filed: 08/09/24 17:54> - Medical Decision Making I completed the quick note portion of this chart signed TATIANA Fernando (Tony Saravia) 84 female will be admitted with RSV, signs and symptoms of pulmonary edema, elevated white blood cell count and elevated potassium (David Adams) - Lab Data Lab Results 08/03/24 08/03/24 08/03/24 Range/Units 18:41 18:41 18:41 WBC 19.8 H (3.8-10.6) k/uL RBC 4.34 (3.80-5.40) m/uL Hgb 13.0 (11.4-16.0) gm/dL Hct 42.6 (34.0-46.0) % MCV 98.3 (80.0-100.0) fL MCH 30.1 (25.0-35.0) pg MCHC 30.6 L (31.0-37.0) g/dL RDW 13.9 (11.5-15.5) % Plt Count 331 (150-450) k/uL MPV 7.8 Neutrophils % 94 % Lymphocytes % 3 % Monocytes % 2 % Eosinophils % 1 % Basophils % 0 % Neutrophils # 18.6 H (1.3-7.7) k/uL Lymphocytes # 0.5 L (1.0-4.8) k/uL Monocytes # 0.5 (0-1.0) k/uL Eosinophils # 0.1 (0-0.7) k/uL Basophils # 0.0 (0-0.2) k/uL Sodium 131 L (137-145) mmol/L Potassium 5.6 H (3.5-5.1) mmol/L Chloride 97 L (98-107) mmol/L Carbon Dioxide 24 (22-30) mmol/L Anion Gap 10 mmol/L BUN 77 H (7-17) mg/dL Creatinine 1.04 (0.52-1.04) mg/dL Est GFR (CKD-EPI)AfAm 58 (>60 ml/min/1.73 sqM) Est GFR (CKD-EPI)NonAf 50 (>60 ml/min/1.73 sqM) Glucose 287 H (74-99) mg/dL Plasma Lactic Acid Clem 1.6 (0.7-2.0) mmol/L Calcium 10.5 H (8.4-10.2) mg/dL Total Bilirubin 1.2 (0.2-1.3) mg/dL AST 17 (14-36) U/L ALT 20 (4-34) U/L Alkaline Phosphatase 101 (38-126) U/L NT-Pro-B Natriuret Pep pg/mL Total Protein 6.9 (6.3-8.2) g/dL Albumin 3.7 (3.5-5.0) g/dL Influenza Type A (PCR) (Not Detectd) Influenza Type B (PCR) (Not Detectd) RSV (PCR) (Not Detectd) SARS-CoV-2 (PCR) (Not Detectd) 08/03/24 08/03/24 Range/Units 18:41 18:41 WBC (3.8-10.6) k/uL RBC (3.80-5.40) m/uL Hgb (11.4-16.0) gm/dL Hct (34.0-46.0) % MCV (80.0-100.0) fL MCH (25.0-35.0) pg MCHC (31.0-37.0) g/dL RDW (11.5-15.5) % Plt Count (150-450) k/uL MPV Neutrophils % % Lymphocytes % % Monocytes % % Eosinophils % % Basophils % % Neutrophils # (1.3-7.7) k/uL Lymphocytes # (1.0-4.8) k/uL Monocytes # (0-1.0) k/uL Eosinophils # (0-0.7) k/uL Basophils # (0-0.2) k/uL Sodium (137-145) mmol/L Potassium (3.5-5.1) mmol/L Chloride (98-107) mmol/L Carbon Dioxide (22-30) mmol/L Anion Gap mmol/L BUN (7-17) mg/dL Creatinine (0.52-1.04) mg/dL Est GFR (CKD-EPI)AfAm (>60 ml/min/1.73 sqM) Est GFR (CKD-EPI)NonAf (>60 ml/min/1.73 sqM) Glucose (74-99) mg/dL Plasma Lactic Acid Clem (0.7-2.0) mmol/L Calcium (8.4-10.2) mg/dL Total Bilirubin (0.2-1.3) mg/dL AST (14-36) U/L ALT (4-34) U/L Alkaline Phosphatase (38-126) U/L NT-Pro-B Natriuret Pep 9600 pg/mL Total Protein (6.3-8.2) g/dL Albumin (3.5-5.0) g/dL Influenza Type A (PCR) Not Detected (Not Detectd) Influenza Type B (PCR) Not Detected (Not Detectd) RSV (PCR) Detected A (Not Detectd) SARS-CoV-2 (PCR) Not Detected (Not Detectd) Critical Care Time Critical Care Time: Yes Total Critical Care Time: 31 <David Adams - Last Filed: 08/09/24 17:54> Disposition <Tony Saravia - Last Filed: 08/03/24 17:51> Is patient prescribed a controlled substance at d/c from ED?: No Time of Disposition: 21:45 <David Adams - Last Filed: 08/09/24 17:54> Clinical Impression: RSV (acute bronchiolitis due to respiratory syncytial virus), Pneumonia, Pulmonary edema, Congestive heart failure, Hyperkalemia, Leukocytosis Disposition: ADMITTED IP TO THIS HOSP Condition: Fair
--- NOTE | 2024-08-03 18:52 | XR ---
EXAMINATION TYPE: XR chest 2V DATE OF EXAM: 08/03/2024 6:21 PM COMPARISON: Chest radiographs from 10/23/2021. CLINICAL INDICATION: Female, 84 years old with history of Cough; PH[facility] TECHNIQUE: XR chest 2V Frontal and lateral views of the chest. FINDINGS: Lungs/Pleura: There is no evidence of pleural effusion, focal consolidation, or pneumothorax. Pulmonary vascularity: Pulmonary vascular congestion. Heart/mediastinum: Cardiomediastinal silhouette is enlarged and stable. Atherosclerotic calcificatio ns are seen in the aorta. Three lead cardiac conduction device overlying the left hemithorax with raegan d tips projecting over the right ventricle, right atrium and coronary sinus. Musculoskeletal: No acute osseous pathology. Other findings: None IMPRESSION: Cardiomegaly and mild pulmonary vascular congestion. Correlate with BNP for congestive heart failure. [facility], , 08/03/2024 6:50 PM
[2024-08-03 19:00] LABS: Basophils % (A) 0 %; Eosinophils # (A) 0.1 k/uL (0-0.7); Eosinophils % (A) 1 %; HCT 42.6 % (34.0-46.0); Lymphocytes # (A) 0.5 k/uL (1.0-4.8); Lymphocytes % (A) 3 %; MCH 30.1 pg (25.0-35.0); MCHC 30.6 g/dL (31.0-37.0); MCV 98.3 fL (80.0-100.0); Mean Platelet Volume 7.8; Monocytes # (A) 0.5 k/uL (0-1.0); Monocytes % (A) 2 %; Neutrophils # (A) 18.6 k/uL (1.3-7.7); Neutrophils % (A) 94 %; Platelet Count 331 k/uL (150-450); RBC 4.34 m/uL (3.80-5.40); RDW 13.9 % (11.5-15.5); WBC 19.8 k/uL (3.8-10.6)
[2024-08-03 19:09] LABS: ALT 20 U/L (4-34); AST 17 U/L (14-36); African American GFR (CKD) 58 (>60 ml/min/1.73 sqM); Albumin 3.7 g/dL (3.5-5.0); Alkaline Phosphatase 101 U/L (38-126); Anion Gap 10 mmol/L; Blood Urea Nitrogen 77 mg/dL (7-17); Calcium 10.5 mg/dL (8.4-10.2); Carbon Dioxide 24 mmol/L (22-30); Chloride 97 mmol/L (98-107); Glucose 287 mg/dL (74-99); Non-African American GFR(CKD) 50 (>60 ml/min/1.73 sqM); Potassium 5.6 mmol/L (3.5-5.1); Sodium 131 mmol/L (137-145); Total Bilirubin 1.2 mg/dL (0.2-1.3); Total Protein 6.9 g/dL (6.3-8.2)
[2024-08-03 19:31] LABS: Influenza A Not Detected (Not Detectd); Influenza B Not Detected (Not Detectd); RSV Detected (Not Detectd)
[2024-08-03] MEDS ORDERED: IPRATROPIUM-ALBUTEROL 3 ML NEB INHALATION PRN (21:43)
[2024-08-03] MEDS ORDERED: ONDANSETRON 4 MG/2 ML VIAL IVP PRN (21:43)
[2024-08-03] MEDS ORDERED: NALOXONE 0.4 MG/ML 1 ML VIAL IV PRN (21:43)
[2024-08-03] MEDS: SODIUM CHLORIDE 0.9% 1,000 ML IV SCH (21:48)
[2024-08-03] MEDS: IPRATROPIUM-ALBUTEROL 3 ML NEB INHALATION STA (21:56)
[2024-08-04 04:19] LABS: ALT 18 U/L (4-34); AST 22 U/L (14-36); African American GFR (CKD) 54 (>60 ml/min/1.73 sqM); Albumin 2.9 g/dL (3.5-5.0); Alkaline Phosphatase 77 U/L (38-126); Anion Gap 9 mmol/L; Blood Urea Nitrogen 78 mg/dL (7-17); Carbon Dioxide 21 mmol/L (22-30); Chloride 101 mmol/L (98-107); Glucose 260 mg/dL (74-99); Magnesium 2.5 mg/dL (1.6-2.3); Non-African American GFR(CKD) 47 (>60 ml/min/1.73 sqM); Phosphorus 3.7 mg/dL (2.5-4.5); Potassium 5.2 mmol/L (3.5-5.1); Sodium 131 mmol/L (137-145); Total Bilirubin 1.2 mg/dL (0.2-1.3); Total Protein 5.8 g/dL (6.3-8.2)
[2024-08-04 05:24] LABS: Basophils % (A) 0 %; Eosinophils % (A) 0 %; HCT 39.2 % (34.0-46.0); HGB 11.9 gm/dL (11.4-16.0); Lymphocytes # (A) 0.5 k/uL (1.0-4.8); Lymphocytes % (A) 2 %; MCH 30.3 pg (25.0-35.0); MCHC 30.4 g/dL (31.0-37.0); MCV 99.8 fL (80.0-100.0); Monocytes # (A) 1.1 k/uL (0-1.0); Monocytes % (A) 3 %; Neutrophils # (A) 31.1 k/uL (1.3-7.7); Neutrophils % (A) 95 %; Platelet Count 236 k/uL (150-450); RBC 3.92 m/uL (3.80-5.40); RDW 13.9 % (11.5-15.5); WBC 32.9 k/uL (3.8-10.6)
[2024-08-04] MEDS: PANTOPRAZOLE 40 MG/10 ML VIAL IV SCH (08:13)
[2024-08-04] MEDS ORDERED: ALBUTEROL NEBULIZED 2.5 MG/3 ML INHALATION PRN (08:32)
[2024-08-04 09:07] LABS: RBC Morphology Normal
--- NOTE | 2024-08-04 09:07 | XR ---
EXAMINATION TYPE: XR chest 1V portable DATE OF EXAM: 08/04/2024 8:43 AM COMPARISON: Chest radiographs from 08/03/2024 CLINICAL INDICATION: Female, 84 years old with history of Hx of cough and SOB; PHH TECHNIQUE: XR chest 1V portable Frontal view of the chest. FINDINGS: Lungs/Pleura: There is no evidence of pleural effusion, focal consolidation, or pneumothorax. Pulmonary vascularity: Pulmonary vascular congestion. Heart/mediastinum: Cardiomediastinal silhouette is enlarged. Three lead cardiac conduction device ove rlying the left hemithorax with lead tips projecting over the right ventricle, right atrium and coron dawn sinus. Musculoskeletal: No acute osseous pathology. Other findings: None IMPRESSION: Cardiomegaly, pulmonary vascular congestion and bilateral pleural effusions. Correlate with BNP for c ongestive heart failure. [facility], , 08/04/2024 9:04 AM
[2024-08-04] MEDS ORDERED: BENZOCAINE/MENTHOL SPRAY 1 GM/SPRAY AEROSOL TOPICAL PRN (09:25)
[2024-08-04] MEDS ORDERED: LIDOCAINE 2% GLYDO JELLY 6 ML APPL TOPICAL PRN (09:25)
[2024-08-04] MEDS ORDERED: MAG HYDROX/AL HYDROX/SIMETH 30 ML CUP PO PRN (09:25)
[2024-08-04] MEDS ORDERED: guaiFENesin SYRUP 100MG/5ML 200 MG/10 ML CUP PO PRN (09:25)
[2024-08-04] MEDS ORDERED: MELATONIN 3 MG TABLET PO PRN (09:25)
[2024-08-04] MEDS ORDERED: DEXTROSE 50% SYRINGE 50 ML IVP PRN ×2 (09:30)
[2024-08-04] MEDS ORDERED: IPRATROPIUM-ALBUTEROL 3 ML NEB INHALATION PRN (09:33)
[2024-08-04] MEDS ORDERED: bisacodyL 10 MG SUPP RECTAL PRN (10:00)
[2024-08-04] MEDS: AZITHROMYCIN 500 MG TAB PO SCH (10:15)
[2024-08-04] MEDS: methylPREDNISolone SOD SUCCI 125 MG/2 ML VIAL IV STA (10:15)
[2024-08-04 11:06] LABS: Glucose,Whole Blood 306 mg/dL (70-110)
[2024-08-04] MEDS: INSULIN LISPRO (HumaLOG) 100 UNIT/ML 10 mL VL SQ SCH ×2 (11:09)
--- NOTE | 2024-08-04 11:47 | CT ---
EXAMINATION TYPE: CT abdomen pelvis wo con DATE OF EXAM: 08/04/2024 11:37 AM COMPARISON: None. CLINICAL INDICATION: Female, 84 years old with history of Right CVA tenderness; r/o pyelonephritis, R IGHT CVA TENDERNESS; R/O PYELONEPHRITIS TECHNIQUE: Axial images with sagittal coronal reformats. Examination of the solid and hollow viscera is limited given the lack of contrast. CT DLP: 538.5 mGycm, Automated exposure control for dose reduction was used. FINDINGS: LUNG BASES: No evidence for nodule. No evidence for infiltrate. There is evidence of cardiomegaly. Sm all bilateral pleural effusions and compressive atelectasis right lung base. LIVER/GB: Small gallstones suspected. The gallbladder is contracted. No wall thickening seen. No spac e-occupying hepatic lesion. PANCREAS: No pancreatic mass identified. No inflammatory process seen. SPLEEN: No evidence for splenomegaly. No intrasplenic lesions seen. ADRENALS: No adrenal nodules identified. No evidence for thickening. KIDNEYS: I cannot exclude pyelonephritis on the basis of a noncontrast study. Correlate clinically. I ndeterminate cystic-appearing lesion mid to upper pole left kidney measures 2.1 cm. No nephrolithiasi s. No hydronephrosis. BOWEL: Appendix has a normal appearance. No evidence of bowel obstruction. No inflammatory process. Lymph nodes: No evidence for adenopathy greater than 1 cm. Abdominal aorta: Atheromatous changes seen. No evidence for aneurysm. Genital organs: Hysterectomy changes seen. No adnexal masses present. Other: Degenerative changes and curvature lumbar spine. IMPRESSION: NO ACUTE PROCESS SEEN FOR THE PATIENT'S SYMPTOMS. SEE ABOVE DISCUSSION. [facility], , 08/04/2024 11:44 AM
[2024-08-04 12:21] LABS: Appearance,Urine Clear (Clear); Bilirubin,Urine Negative (Negative); Blood,Urine Negative (Negative); Color,Urine Light Yellow; Glucose,Urine (UA) 4+ (Negative); Ketones,Urine 1+ (Negative); Leukocyte Esterase,Urine Moderate (Negative); Mucus,Urine Rare /hpf; Nitrite,Urine Negative (Negative); PH, Urine 8.5 (5.0-8.0); Protein,Urine Trace (Negative); RBC,Urine 1 /hpf (0-5); Specific Gravity,Urine 1.023 (1.001-1.035); Squamous Epithelial Cell,Urine 1 /hpf (0-4); Urobilinogen,Urine <2.0 mg/dL (<2.0); WBC,Urine 3 /hpf (0-5)
[2024-08-04] MEDS: FUROSEMIDE 10 MG/ML 2 ML VIAL IV SCH (12:50)
[2024-08-04] MEDS: SPIRONOLACTONE 25 MG TAB PO SCH (12:52)
--- NOTE | 2024-08-04 12:54 | CA ---
Transthoracic Echo Report Name: Lilia Boateng Age: 84 Gender: F : 1940 Exam Date: 08/04/2024 10:09 Exam Location: [facility] Ht (in): 59 Wt (lb): 170 Ordering Physician: Manuel Berry MD Attending/Referring Phys: Director Process Engineering Pat Salvador, AVILA Procedure CPT: Indications: hx of CHF and pacemaker Cardiac Hx: Pacemaker, CAD, Heart failure, Diabetes, HTN, NH, stent Technical Quality: Technically difficult study Contrast 1: Definity Total Dose (mL): 2 Contrast 2: Total Dose (mL): MEASUREMENTS (Male / Female) Normal Values 2D ECHO LV Diastolic Diameter PLAX 5.3 cm 4.2 - 5.9 / 3.9 - 5.3 cm LV Systolic Diameter PLAX 4.7 cm IVS Diastolic Thickness 0.9 cm 0.6 - 1.0 / 0.6 - 0.9 cm LVPW Diastolic Thickness 0.9 cm 0.6 - 1.0 / 0.6 - 0.9 cm LV Relative Wall Thickness 0.3 RV Internal Dim ED PLAX 2.8 cm LVOT Diameter 1.5 cm LA Systolic Diameter LX 3.9 cm 3.0 - 4.0 / 2.7 - 3.8 cm LV Diastolic Volume MOD 4C 188.0 cm??? LV Systolic Volume MOD 4C 150.7 cm??? LV Ejection Fraction MOD 4C 19.9 % LV Cardiac Index MOD 4C 1715.1 cm???/min???m??? LV Diastolic Length 4C 9.8 cm LV Systolic Length 4C 9.0 cm LV Diastolic Volume MOD 2C 230.1 cm??? LV Diastolic Length 2C 10.2 cm LA Volume 59.2 cm??? 18 - 58 / 22 - 52 cm??? LA Volume Index 32.4 cm???/m??? 16 - 28 cm???/m??? DOPPLER AI Peak Velocity 372.8 cm/s AI Peak Gradient 55.6 mmHg AI Pressure Half Time 278.6 ms MV Area PHT 3.0 cm??? MR Peak Velocity 532.5 cm/s MR Peak Gradient 113.4 mmHg Mitral E Point Velocity 53.9 cm/s Mitral A Point Velocity 129.1 cm/s Mitral E to A Ratio 0.4 MV Deceleration Time 160.3 ms TR Peak Velocity 317.0 cm/s TR Peak Gradient 40.2 mmHg Right Atrial Pressure 5.0 mmHg Pulmonary Artery Systolic Pressu 45.2 mmHg Right Ventricular Systolic Press 45.2 mmHg FINDINGS Left Ventricle Left ventricular ejection fraction is estimated at 30-35 %. Normal left ventricular wall thickness. Severely reduced global left ventricular systolic function. Global hypokinesia more so involving the entire anteroseptal apical portion Right Ventricle Normal right ventricular size. Moderate pulmonary hypertension. Atypical septal motion Right Atrium Normal right atrial size. Hypermobil interatrial septum Left Atrium Mildly increased left atrial volume. Mitral Valve Mitral valve thickened. No mitral stenosis. [id number] mitral regurgitation. Aortic Valve Trileaflet aortic valve. Thickened aortic valve without stenosis. No aortic stenosis. Moderate aortic regurgitation. Tricuspid Valve Structurally normal tricuspid valve. No tricuspid stenosis. Trace tricuspid regurgitation. Pulmonic Valve Pulmonic valve not well visualized. No pulmonic stenosis. Trace pulmonic regurgitation. Pericardium No pericardial effusion. Aorta Normal size aortic root and proximal ascending aorta. CONCLUSIONS Ischemic cardiomyopathy with ejection fraction of about 30 to 35% with mild to moderate mitral regurgitation moderate aortic regurgitation and mild to moderate tricuspid regurgitation with moderate pulmonary hypertension. No pericardial effusion. There is severe hypokinesia involving the anteroseptal portion as well as the apical septal portion. Previewed by: Dr. Suhas Ortiz MD (Electronically Signed) Final Date: 04 August 2024 12:53
[2024-08-04] MEDS ORDERED: MUPIROCIN 2% OINT 22 GM TUBE TOPICAL SCH (13:00)
[2024-08-04] MEDS ORDERED: IPRATROPIUM-ALBUTEROL 3 ML NEB INHALATION SCH (13:00)
--- NOTE | 2024-08-04 14:26 | P.HPIM ---
History of Present Illness H&P Date: 08/04/24 Patient is a 84-year-old female with history of CAD status post CABG, heart failure, dementia, type 2 diabetes, hypertension, hyperlipidemia presents to the ER with complaint of fever, chills, generalized weakness and abnormal lab work. Patient states that she is living at [facility] and since last week she has been endorsing generalized weakness associated with fever, chills and nonproductive cough. Patient reports sick contact at [facility]. Patient also reports swelling in her legs, orthopnea, PND, pain in her right flank, urgency and frequency of urination. Patient denies any chest pain, shortness of breath, recent hospitalization, recent travel. Patient reports that she had a CABG done about 5 years ago and follows cardiology on a regular basis. Patient reports no history of smoking, drinking alcohol or use of illicit drugs. Initial lab work in the ER shows WBC 19.8, hemoglobin 13.0, platelet count 331, neutrophil count 18.6, sodium 131, potassium 5.6, BUN 77, creatinine 1.04, gl ucose 287, calcium 10.5, NT proBNP 9600. Subsequent lab work showed WBC 32.9, neutrophil count 31.1, sodium 131, potassium 5.2, bicarb 21, BUN 78, creatinine 1.11, glucose 260, magnesium 2.5. Urinalysis shows glycosuria, ketonuria, leukocyte esterase and negative urine nitrite. Chest x-ray in the ER shows cardiomegaly, pulmonary vascular addition to bilateral pleural effusions. Echocardiogram shows ischemic cardiomyopathy with ejection fraction of about 325% with mild to moderate MR, moderate AR and mild to moderate TR with moderate pulmonary hypertension. There is a severe hypokinesia involving the anteroseptal portion as well as apical septal portion. CT abdomen and pelvis is unable to exclude pyelonephritis otherwise there is no acute process noted. Vital signs on arrival shows temperature 97.9 F, pulse rate 92, respiratory rate 16, blood pressure 148/72, oxygen saturation 98% on room air. Subsequent vital signs show temperature 98.8 F, pulse rate 87, respirate 18, blood pre ssure 125/76, oxygen saturation 99% 2 L via nasal cannula. Review of systems: Pertinent positives and negatives as discussed in HPI, a complete review of systems was performed and all other systems are negative. Social history: As above in HPI Physical examination: Vital signs reviewed General: non toxic, no distress, appears at stated age, overweight Derm: There are 2 stage II ulcers on the left buttock and 1 stage II ulcer on the right buttock, bilateral groin rash, nonpurulent ulcerated lesion on left lower extremity, Head: atraumatic, normocephalic, symmetric Eyes: EOMI, no lid lag, anicteric sclera, pupils equal round reactive to light ENT: Nose and ears atraumatic Neck: No cervical lymphadenopathy, trachea midline, supple Mouth: no lip lesion, mucus membranes moist Cardiovascular: S1S2 reg, no murmur, positive dorsalis pedis pulse bilateral, bilateral 1+ pitting edema LE Lungs: Diffuse bilateral wheezing with bibasilar crackles noted Abdominal: soft, nontender to palpation, no guarding, right CVA tenderness Ext: muscle strength 5 out of 5 in all 4 extremities grossly, no gross muscle atrophy, no contractures, Neuro: CN II-XI grossly intact, no gross focal neuro deficits Psych: Alert, oriented, appropriate affect Assessment/Plan: This is a Patient is a 84-year-old female with history of CAD status post CABG, heart failure, dementia, type 2 diabetes, hypertension, hyperlipidemia presents to the ER with complaint of fever, chills, generalized weakness and abnormal lab work. . Case was discussed with the Emergency Room provider and decision was made to admit the patient for CHF exacerbation, left pyelonephritis and suspected community-acquired pneumonia Labs and images: Initial lab work in the ER shows WBC 19.8, hemoglobin 13.0, platelet count 331, neutrophil count 18.6, sodium 131, potassium 5.6, BUN 77, creatinine 1.04, glucose 287, calcium 10.5, NT proBNP 9600. Subsequent lab work showed WBC 32.9, neutrophil count 31.1, sodium 131, potassium 5.2, bicarb 21, BUN 78, creatinine 1.11, glucose 260, magnesium 2.5. Urinalysis shows glycosuria, ketonuria, leukocyte esterase and negative urine nitrite. Cepheid for positive for RSV. Chest x-ray in the ER shows cardiomegaly, pulmonary vascular addition to bilateral pleural effusions. Echocardiogram shows ischemic cardiomyopathy with ejection fraction of about 30- 35 % with mild to moderate MR, moderate AR and mild to moderate TR with moderate pulmonary hypertension. There is a severe hypokinesia involving the anteroseptal portion as well as apical septal portion. CT abdomen and pelvis is unable to exclude pyelonephritis otherwise there is no acute process noted. Vital signs on arrival shows temperature 97.9 F, pulse rate 92, respiratory rate 16, blood pressure 148/72, oxygen saturation 98% on room air. Subsequent vital signs show temperature 98.8 F, pulse rate 87, respirate 18, blood pressure 125/76, oxygen saturation 99% 2 L via nasal cannula. Active problems: #CHF exacerbation #Acute hypoxemic respiratory failure secondary to CHF exacerbation #Suspected community-acquired pneumonia #RSV positive Oxygen therapy as needed Consult cardiology Echocardiogram shows LVEF 30 to 35% GDMT: Entresto 24-26 mg OD, Aldactone 12.5 mg OD, Coreg 6.25 mg twice daily, Farxiga 5 mg p.o. daily IV Lasix 20 mg every 12 hours Fluid restrictions, I's and O's and daily weights Start patient on Zithromax 500 mg p.o. daily and IVPB ceftriaxone 2 g every 24 hours Order sputum culture, blood culture, urine Legionella antigen, procalcitonin DuoNebs as scheduled and [id number] IV Solu-Medrol 60 mg once stat #Right CVA tenderness #Stage II pressure ulcers on buttocks #Left lower extremity venous stasis ulcer #Bilateral groin rash CT abdomen and pelvis is unable to exclude pyelonephritis otherwise there is no acute process noted. Urinalysis positive for leukocyte esterase IVPB ceftriaxone 2 g every 24 hours Mycostatin powder and Bactroban ointment Urine culture Consult infectious disease Consult wound care #Hypervolemic hyponatremia #Hyperkalemia Order serum osmolality, urine osmolality and urine sodium Fluid restriction 1500 mL Monitor BMP #Type 2 diabetes mellitus Accu-Cheks and insulin scale insulin Lantus 15 units SQ at bedtime Humalog 3 units SQ twice daily Monitor for hypoglycemia #Hypermagnesemia Continue monitor Hold magnesium oxide 400 mg p.o. daily Chronic: Hypertension: Resume Entresto Hyperlipidemia: Resume atorvastatin 40 mg GERD: Resume Protonix 40 mg DVT prophylaxis: Lovenox 40 mg subcu daily GI prophylaxis: Protonix 40 mg F: None E: Replete as needed N: Heart healthy diet A: Ambulatory at baseline The patient is admitted with an anticipated more than than 2 midnight stay for evaluation of CHF exacerbation, suspected CAP, pyelonephritis CODE STATUS: Full code Discussed with: Patient Anticipated discharge place: Pending clinical course Dictation was produced using [employer] dictation software. Please excuse any grammatical, word or spelling errors. Attestation I have seen and examined this patient with my resident , discussed the same with the resident/PETER, and agree with the dictator's assessment and plan as written GENERAL: The patient is alert and oriented x3, ill looking HEENT: Pupils are round and equally reacting to light. EOMI. No scleral icterus. No conjunctival pallor. Normocephalic, atraumatic. No pharyngeal erythema. No thyromegaly. CARDIOVASCULAR: S1 and S2 present. No murmurs, rubs, or gallops. PULMONARY: Chest is clear to auscultation, no wheezing or crackles. ABDOMEN: Soft, right CVA tenderness MUSCULOSKELETAL: No joint swelling or deformity. EXTREMITIES: No cyanosis, clubbing, or pedal edema. NEUROLOGICAL: Gross neurological examination did not reveal any focal deficits. SKIN: No rashes. Dr. Leo acuña Past Medical History Past Medical History: Coronary Artery Disease (CAD), Heart Failure, Dementia, Diabetes Mellitus, Hypertension, Myocardial Infarction (NM), Pneumonia, Vascular Disorder Additional Past Medical History / Comment(s): Pt recently admitted to [facility] on 03/14/21 with CHF/L pleural effusion. Other hx: Chronic L calf wound/WCC, NIDM type II, neuropathy L foot/leg, cardiomyopathy/sees Dr Knight in [place], MIs, mild cognitive impairment, incontinence, iron anemia, hypmagnesemia Last Myocardial Infarction Date:: unsure History of Any Multi-Drug Resistant Organisms: MRSA Date of last positivie culture/infection: 10/11/21 MDRO Source:: Left Foot & Leg Past Surgical History: AICD, Bladder Surgery, Coronary Bypass/CABG, Heart Catheterization, Heart Catheterization With Stent, Hysterectomy, Joint Replacement, Pacemaker Additional Past Surgical History / Comment(s): 10/2020 AICD/pacer, PCI stents, 2010 CABG 3 vessel, L leg wound I&D, bkadder suspension, ovarian cyst removal, D&C, rectocele, colonoscopy, total r knee arthroplasty. Past Anesthesia/Blood Transfusion Reactions: No Reported Reaction Date of Last Stent Placement:: unknown Type of Cardiac Device: AICD Device Placement Date:: 2020 Past Psychological History: No Psychological Hx Reported Smoking Status: Never smoker Past Alcohol Use History: None Reported Past Drug Use History: None Reported - Past Family History Father Family Medical History: No Reported History Additional Family Medical History / Comment(s): Father had heart problems. He chewed tobacco, smoked and drank quit a bit of alcohol. Mother Family Medical History: Diabetes Mellitus Medications and Allergies Home Medications Medication Instructions Recorded Confirmed Type Aspirin EC [Ecotrin Low Dose] 81 mg PO DAILY@0800 03/14/21 08/03/24 History Donepezil [Aricept] 10 mg PO HS@2100 03/14/21 08/03/24 History Isosorbide Mononitrate ER [Imdur] 30 mg PO DAILY@0800 03/14/21 08/03/24 History Magnesium Oxide 400 mg PO DAILY@0800 03/14/21 08/03/24 History Benzocaine/Menthol [Dermoplast 1 spray TOPICAL BID PRN 04/16/21 08/03/24 History Pain Relieving [place]] Ferrous Sulfate [Iron (65 MG 325 mg PO BID@0800,1700 04/16/21 08/03/24 History Elemental)] Acetaminophen Tab [Tylenol] 650 mg PO Q6HR PRN tab 04/28/21 08/03/24 Rx Famotidine [Pepcid] 20 mg PO DAILY@0800 05/07/21 08/03/24 History INSULIN ASPART (NovoLOG) [NovoLOG 3 unit SQ BID@1100,1700 05/07/21 08/03/24 History (formulary)] L.acidoph,Paracasei, B.lactis 1 cap PO DAILY@0800 05/07/21 08/03/24 History [Probiotic] Melatonin 3 mg PO DAILY PRN 05/07/21 08/03/24 History Ondansetron [Zofran] 4 mg PO TID PRN 05/07/21 08/03/24 History Spironolactone [Aldactone] 12.5 mg PO DAILY@0800 05/07/21 08/03/24 History bisacodyL [Dulcolax] 10 mg RECTAL DAILY PRN 05/07/21 08/03/24 History HYDROcodone/APAP 5-325MG [Helen 1 tab PO Q6H PRN 06/03/21 08/03/24 History 5-325] Atorvastatin [Lipitor] 40 mg PO HS@2100 10/23/21 08/03/24 History Empagliflozin [Jardiance] 10 mg PO DAILY@0800 10/23/21 08/03/24 History Furosemide [Lasix] 20 mg PO DAILY@0800 10/23/21 08/03/24 History Emmanuel Packet 1 packet PO BID@0800,1700 10/23/21 08/03/24 History Sacubitril/Valsartan [Entresto 24 1 tab PO BID@0800,1700 10/23/21 08/03/24 Histo ry mg-26 mg Tablet] carvediloL [Coreg] 6.25 mg PO BID@0800,1700 10/23/21 08/03/24 History Cholecalciferol (Vitamin D3) 100 mcg PO DAILY@0800 08/03/24 08/03/24 History [Vitamin D3 (50 Mcg = 2000 Iu)] Eucerin Advanced Repair Cream 1 applic TOPICAL DAILY 08/03/24 08/03/24 History Folic Acid 0.4 mg PO DAILY@0800 08/03/24 08/03/24 History INSULIN ASPART (NovoLOG) [NovoLOG See Protocol SQ ACHS 08/03/24 08/03/24 History (formulary)] Insulin Degludec [Tresiba 25 units SQ HS@2130 08/03/24 08/03/24 History Flextouch U-100 Pen] Ipratropium-Albuterol Nebulize 3 ml INHALATION RT-DAILY@1700 08/03/24 08/03/24 History [Duoneb 0.5 mg-3 mg/3 ml Soln] Ipratropium-Albuterol Nebulize 3 ml INHALATION RT-Q6H PRN 08/03/24 08/03/24 History [Duoneb 0.5 mg-3 mg/3 ml Soln] Lactulose 10 gm PO BID@0800,1700 08/03/24 08/03/24 History Lidocaine 5% Cream 1 applic TOPICAL DAILY PRN 08/03/24 08/03/24 History Liquacel 30 ml PO DAILY@0800 08/03/24 08/03/24 History Loperamide [Imodium] 2 mg PO Q6H PRN 08/03/24 08/03/24 History Magnesium Hydroxide [Milk of 7,200 mg PO Q2D PRN 08/03/24 08/03/24 History Magnesia Concentrate] Multivitamins, Thera [Multivitamin 1 tab PO DAILY@1700 08/03/24 08/03/24 History (formulary)] Mylanta Double Strength 10 ml PO Q4H PRN 08/03/24 08/03/24 History 289-794-25hb/5ml Patiromer Calcium Sorbitex 8.4 gm PO TH@1200 08/03/24 08/03/24 History [Veltassa] Semaglutide [Ozempic] 0.25 mg SQ WE@2130 08/03/24 08/03/24 History allopurinoL [Zyloprim] 100 mg PO DAILY@0800 08/03/24 08/03/24 History guaiFENesin [guaiFENesin Oral 200 mg PO Q4H PRN 08/03/24 08/03/24 History Solution] guaiFENesin [guaiFENesin Oral 200 mg PO QID 08/03/24 08/03/24 History Solution] Allergies Allergy/AdvReac Type Severity Reaction Status Date / Time Sulfa (Sulfonamide Allergy Anaphylaxis Verified 08/03/24 19:31 Antibiotics) Physical Exam Vitals: Vital Signs Temp Pulse Resp BP Pulse Ox 08/04/24 07:51 89 18 126/50 99 08/04/24 04:53 98.8 F 75 18 112/45 99 08/04/24 02:11 93 18 117/56 98 08/03/24 22:37 100 18 103/52 97 08/03/24 22:05 78 08/03/24 21:57 75 08/03/24 21:51 98.8 F 105 H 20 93/80 98 08/03/24 16:56 97.9 F 82 16 148/72 98 Intake and Output 08/03/24 08/04/24 08/04/24 22:59 06:59 14:59 Other: Weight 77.111 kg Results CBC & Chem 7: 08/05/24 03:21 08/04/24 03:32 Labs: Abnormal Lab Results - Last 24 Hours (Table) 08/03/24 08/03/24 08/03/24 Range/Units 18:41 18:41 18:41 WBC 19.8 H (3.8-10.6) k/uL MCHC 30.6 L (31.0-37.0) g/dL Neutrophils # 18.6 H (1.3-7.7) k/uL Lymphocytes # 0.5 L (1.0-4.8) k/uL Sodium 131 L (137-145) mmol/L Potassium 5.6 H (3.5-5.1) mmol/L Chloride 97 L (98-107) mmol/L Carbon Dioxide (22-30) mmol/L BUN 77 H (7-17) mg/dL Creatinine (0.52-1.04) mg/dL Glucose 287 H (74-99) mg/dL Calcium 10.5 H (8.4-10.2) mg/dL Magnesium (1.6-2.3) mg/dL Total Protein (6.3-8.2) g/dL Albumin (3.5-5.0) g/dL RSV (PCR) Detected A (Not Detectd) 08/04/24 08/04/24 Range/Units 03:32 03:32 WBC 32.9 H (3.8-10.6) k/uL MCHC 30.4 L (31.0-37.0) g/dL Neutrophils # (1.3-7.7) k/uL Lymphocytes # (1.0-4.8) k/uL Sodium 131 L (137-145) mmol/L Potassium 5.2 H (3.5-5.1) mmol/L Chloride (98-107) mmol/L Carbon Dioxide 21 L (22-30) mmol/L BUN 78 H (7-17) mg/dL Creatinine 1.11 H (0.52-1.04) mg/dL Glucose 260 H (74-99) mg/dL Calcium (8.4-10.2) mg/dL Magnesium 2.5 H (1.6-2.3) mg/dL Total Protein 5.8 L (6.3-8.2) g/dL Albumin 2.9 L (3.5-5.0) g/dL RSV (PCR) (Not Detectd)
[2024-08-04] MEDS: NYSTATIN 100,000 UNIT/GM POWD 15 GM TOPICAL SCH (14:44)
[2024-08-04 16:41] LABS: Glucose,Whole Blood 220 mg/dL (70-110)
[2024-08-04] MEDS: LACTULOSE 20 GM/30 ML CUP PO SCH (16:50)
[2024-08-04] MEDS: SACUBITRIL/VALSARTAN 24 MG-26 MG TABLET PO SCH (16:56)
[2024-08-04] MEDS: ENOXAPARIN 40 MG/0.4 ML SYRINGE SQ SCH (16:56)
[2024-08-04] MEDS: carvediloL 6.25 MG TAB PO SCH (16:57)
[2024-08-04] MEDS: FERROUS SULFATE 325 MG TAB PO SCH (16:57)
[2024-08-04 20:48] LABS: Glucose,Whole Blood 199 mg/dL (70-110)
[2024-08-04] MEDS: ATORVASTATIN 40 MG TAB PO SCH (23:06)
[2024-08-04] MEDS: DONEPEZIL 10 MG TAB PO SCH (23:06)
[2024-08-04] MEDS: INSULIN GLARGINE (LANTUS) 100 UNIT/ML SYR SQ SCH (23:07)
[2024-08-05] MEDS: MUPIROCIN 2% OINT 22 GM TUBE TOPICAL SCH (03:08)
[2024-08-05] MEDS: VANCOMYCIN 1,500 MG in SODIUM CHLORIDE 0.9% 500 ML 500 ML IVPB SCH (05:15)
[2024-08-05 06:33] LABS: Glucose,Whole Blood 197 mg/dL (70-110)
[2024-08-05] MEDS: PANTOPRAZOLE 40 MG TABLET PO SCH (06:58)
[2024-08-05] MEDS: DAPAGLIFLOZIN PROPANEDIOL 5 MG TABLET PO SCH (08:13)
[2024-08-05] MEDS: ISOSORBIDE MONONITRATE ER 30 MG TAB.ER.24H PO SCH (08:13)
[2024-08-05] MEDS: FOLIC ACID 1 MG TAB PO SCH (08:13)
[2024-08-05] MEDS: FAMOTIDINE 20 MG TAB PO SCH (08:13)
[2024-08-05] MEDS: ASPIRIN 81 MG PO SCH (08:13)
[2024-08-05] MEDS: allopurinoL 100 MG TAB PO SCH (08:13)
[2024-08-05] MEDS: MINERAL OIL-WHITE PETROLATUM 120 GM JAR TOPICAL SCH (08:24)
[2024-08-05 08:46] LABS: HCT 35.5 % (37.2-46.3); HGB 11.4 g/dL (12.0-15.0); MCH 31.1 pg (27.0-32.0); MCHC 32.1 g/dL (32.0-37.0); NRBC Per 100 WBC 0 X 10*3/uL (0.00-0.01); Platelet Count 241 X 10*3/uL (140-440); RBC 3.66 X 10*6/uL (4.10-5.20); WBC 24.42 X 10*3/uL (4.50-10.00)
[2024-08-05 09:04] LABS: Magnesium 2.4 mg/dL (1.5-2.4)
[2024-08-05 09:15] LABS: Calcium 9.4 mg/dL (8.7-10.3); Carbon Dioxide 20.1 mmol/L (21.6-31.8); Chloride 104 mmol/L (96-109); Glucose 215 mg/dL (70-110); Potassium 4.8 mmol/L (3.5-5.5); Sodium 139 mmol/L (135-145)
[2024-08-05 10:10] LABS: Basophils # (A) 0.04 X 10*3/uL (0.00-0.10); Basophils % (A) 0.2 %; Eosinophils # (A) 0 X 10*3/uL (0.04-0.35); Eosinophils % (A) 0 %; Lymphocytes # (A) 0.49 X 10*3/uL (0.90-5.00); Monocytes # (A) 0.65 X 10*3/uL (0.20-1.00); Monocytes % (A) 2.7 %; Neutrophils # (A) 23.05 X 10*3/uL (1.80-7.70); Neutrophils % (A) 94.3 %; RBC Morphology Normal (Normal)
--- NOTE | 2024-08-05 10:17 | P.PN ---
Subjective Progress Note Date: 08/05/24 Hospital Course: Patient is a 84-year-old female with history of CAD status post CABG, heart failure, dementia, type 2 diabetes, hypertension, hyperlipidemia presents to the ER with complaint of fever, chills, generalized weakness and abnormal lab work. Patient states that she is living at [facility] and since last week she has been endorsing generalized weakness associated with fever, chills and nonproductive cough. Patient reports sick contact at [facility]. Patient also reports swelling in her legs, orthopnea, PND, pain in her right flank, urgency and frequency of urination. Patient denies any chest pain, shortness of breath, recent hospitalization, recent travel. Patient reports that she had a CABG done about 5 years ago and follows cardiology on a regular basis. Patient reports no history of smoking, drinking alcohol or use of illicit drugs. Initial lab work in the ER shows WBC 19.8, hemoglobin 13.0, platelet count 331, neutrophil count 18.6, sodium 131, potassium 5.6, BUN 77, creatinine 1.04, glucose 287, calcium 10.5, NT proBNP 9600. Subsequent lab work showed WBC 32.9, neutrophil count 31.1, sodium 131, potassium 5.2, bicarb 21, BUN 78, creatinine 1.11, glucose 260, magnesium 2.5. Urinalysis shows glycosuria, ketonuria, leukocyte esterase and negative urine nitrite. Chest x-ray in the ER shows cardiomegaly, pulmonary vascular addition to bilateral pleural effusions. Echocardiogram shows ischemic cardiomyopathy with ejection fraction of about 325% with mild to moderate MR, moderate AR and mild to moderate TR with moderate pulmonary hypertension. There is a severe hypokinesia involving the anteroseptal portion as well as apical septal portion. CT abdomen and pelvis is unable to exclude pyelonephritis otherwise there is no acute process noted. Vital signs on arrival shows temperature 97.9 F, pulse rate 92, respiratory rate 16, blood pressure 148/72, oxygen saturation 98% on room air. Subsequent vital signs show temperature 98.8 F, pulse rate 87, respirate 18, blood pressure 125/76, oxygen saturation 99% 2 L via nasal cannula. Subjective: Patient seen and examined at the bedside. No acute events overnight. Patient continues to feel mild right flank pain. Denies any dysuria, fever, chills, nausea, vomiting. All Systems reviewed and pertinent positives and negatives noted in HPI, all other symptoms are negative Objective: Physical examination: Vital signs reviewed General: non toxic, no distress, appears at stated age, overweight Derm: There are 2 stage II ulcers on the left buttock and 1 stage II ulcer on the right buttock, bilateral groin rash, nonpurulent ulcerated lesion on left lower extremity, Head: atraumatic, normocephalic, symmetric Eyes: EOMI, no lid lag, anicteric sclera, pupils equal round reactive to light ENT: Nose and ears atraumatic Neck: No cervical lymphadenopathy, trachea midline, supple Mouth: no lip lesion, mucus membranes moist Cardiovascular: S1S2 reg, no murmur, positive dorsalis pedis pulse bilateral, bilateral 1+ pitting edema LE Lungs: Diffuse bilateral wheezing with bibasilar crackles noted Abdominal: soft, nontender to palpation, no guarding, right CVA tenderness Ext: muscle strength 5 out of 5 in all 4 extremities grossly, no gross muscle atrophy, no contractures, Neuro: CN II-XI grossly intact, no gross focal neuro deficits Psych: Alert, oriented, appropriate affect Data reviewed today: Pertinent Labs: WBC 24.4, hemoglobin 11.4, sodium 139, potassium 4.8, chloride 104, bicarb 20.1, BUN 60.0, creatinine 1.2, glucose 215 Images: No new imaging Assessment and Plan: Active problems: #CHF exacerbation #Acute hypoxemic respiratory failure secondary to CHF exacerbation #Ischemic cardiomyopathy with ejection fraction of 30 to 35% status post biventricular ICD #Suspected community-acquired pneumonia #RSV positive #MRSA bacteremia Oxygen therapy as needed Cardiology on board, appreciate recs Echocardiogram shows LVEF 30 to 35% GDMT: Entresto 24-26 mg OD, Aldactone 12.5 mg OD, Coreg 6.25 mg twice daily, Farxiga 5 mg p.o. daily Discontinue IV Lasix; continue with Lasix 40 mg in a.m. and 20 mg p.o. p.m. Fluid restrictions, I's and O's and daily weights Preliminary blood culture reports show MRSA infection Initiate IV vancomycin per pharmacy dosing, monitor renal function Continue with IV Rocephin 2 g IVPB every 24-hour and azithromycin 500 mg p.o. daily (day 2) Procalcitonin positive, urine Legionella antigen negative, sputum culture pending DuoNebs as scheduled and [id number] Order SILVIANO to rule out infective endocarditis #Right CVA tenderness secondary to right pyelonephritis #Stage II pressure ulcers on buttocks #Left lower extremity venous stasis ulcer #Bilateral groin rash CT abdomen and pelvis is unable to exclude pyelonephritis otherwise there is no acute process noted. Urinalysis positive for leukocyte esterase IVPB vancomycin and ceftriaxone as above Mycostatin powder and Bactroban ointment Urine culture Infectious disease on board, appreciate recs Wound care on board, appreciate recs #Hypervolemic hyponatremia, resolved, resolved #Hyperkalemia Fluid restriction 1500 mL Monitor BMP #Type 2 diabetes mellitus Accu-Cheks and insulin scale insulin Lantus 15 units SQ at bedtime Humalog 3 units SQ twice daily Monitor for hypoglycemia #Hypermagnesemia Continue monitor Hold magnesium oxide 400 mg p.o. daily Chronic: Hypertension: Resume Entresto Hyperlipidemia: Resume atorvastatin 40 mg GERD: Resume Protonix 40 mg DVT prophylaxis: Lovenox 40 mg subcu daily GI prophylaxis: Protonix 40 mg F: None E: Replete as needed N: Heart healthy diet A: Ambulatory at baseline The patient is admitted with an anticipated more than than 2 midnight stay for evaluation of CHF exacerbation, suspected CAP, pyelonephritis CODE STATUS: Full code Discussed with: Patient Anticipated discharge place: Pending clinical course Dictation was produced using [employer] dictation software. Please excuse any grammatical, word or spelling errors. Attestation I have seen and examined this patient with my resident , discussed the same with the resident/PETER, and agree with the dictator's assessment and plan as written GENERAL: The patient is alert and oriented x3, ill looking HEENT: Pupils are round and equally reacting to light. EOMI. No scleral icterus. No conjunctival pallor. Normocephalic, atraumatic. No pharyngeal erythema. No thyromegaly. CARDIOVASCULAR: S1 and S2 present. No murmurs, rubs, or gallops. PULMONARY: Coarse breath sound bilaterally, expiratory rhonchi audible ABDOMEN: Soft, nontender, nondistended, normoactive bowel sounds. No palpable organomegaly. MUSCULOSKELETAL: No joint swelling or deformity. EXTREMITIES: No cyanosis, clubbing, or pedal edema. NEUROLOGICAL: Gross neurological examination did not reveal any focal deficits. SKIN: No rashes. Dr. Leo acuña Objective - Vital Signs Vital signs: Vital Signs Temp 97.5 F L 08/05/24 07:31 Pulse 63 08/05/24 07:31 Resp 18 08/05/24 07:31 BP 111/60 08/05/24 07:31 Pulse Ox 93 L 08/05/24 07:31 FiO2 Intake & Output 08/04/24 08/05/24 08/05/24 18:59 06:59 18:59 Weight 70.5 kg Other: Voiding Method External Catheter - Labs CBC & Chem 7: 08/06/24 05:28 08/06/24 05:28 Labs: Abnormal Lab Results - Last 24 Hours (Table) 08/04/24 08/04/24 08/04/24 Range/Units 10:00 10:00 11:03 WBC (4.50-10.00) X 10*3/uL RBC (4.10-5.20) X 10*6/uL Hgb (12.0-15.0) g/dL Hct (37.2-46.3) % Immature Gran # (0.00-0.04) X 10*3/uL Neutrophils # (1.80-7.70) X 10*3/uL Lymphocytes # (0.90-5.00) X 10*3/uL Eosinophils # (0.04-0.35) X 10*3/uL Carbon Dioxide (21.6-31.8) mmol/L Anion Gap (4.00-12.00) mmol/L BUN (9.0-27.0) mg/dL Est GFR (CKD-EPI) (>=60) BUN/Creatinine Ratio (12.00-20.00) Ratio Glucose (70-110) mg/dL POC Glucose (mg/dL) 306 H (70-110) mg/dL Osmolality 316 H (275-295) mOsm/kg Procalcitonin 23.20 H (0.02-0.50) ng/mL Urine pH (5.0-8.0) Urine Protein (Negative) Urine Glucose (UA) (Negative) Urine Ketones (Negative) Ur Leukocyte Esterase (Negative) Urine Mucus (None) /hpf 08/04/24 08/04/24 08/04/24 Range/Units 11:30 16:40 20:47 WBC (4.50-10.00) X 10*3/uL RBC (4.10-5.20) X 10*6/uL Hgb (12.0-15.0) g/dL Hct (37.2-46.3) % Immature Gran # (0.00-0.04) X 10*3/uL Neutrophils # (1.80-7.70) X 10*3/uL Lymphocytes # (0.90-5.00) X 10*3/uL Eosinophils # (0.04-0.35) X 10*3/uL Carbon Dioxide (21.6-31.8) mmol/L Anion Gap (4.00-12.00) mmol/L BUN (9.0-27.0) mg/dL Est GFR (CKD-EPI) (>=60) BUN/Creatinine Ratio (12.00-20.00) Ratio Glucose (70-110) mg/dL POC Glucose (mg/dL) 220 H 199 H (70-110) mg/dL Osmolality (275-295) mOsm/kg Procalcitonin (0.02-0.50) ng/mL Urine pH 8.5 H (5.0-8.0) Urine Protein Trace H (Negative) Urine Glucose (UA) 4+ H (Negative) Urine Ketones 1+ H (Negative) Ur Leukocyte Esterase Moderate H (Negative) Urine Mucus Rare H (None) /hpf 08/05/24 08/05/24 08/05/24 Range/Units 03:21 03:21 06:30 WBC 24.42 H (4.50-10.00) X 10*3/uL RBC 3.66 L (4.10-5.20) X 10*6/uL Hgb 11.4 L (12.0-15.0) g/dL Hct 35.5 L (37.2-46.3) % Immature Gran # 0.19 H (0.00-0.04) X 10*3/uL Neutrophils # 23.05 H (1.80-7.70) X 10*3/uL Lymphocytes # 0.49 L (0.90-5.00) X 10*3/uL Eosinophils # 0 L (0.04-0.35) X 10*3/uL Carbon Dioxide 20.1 L (21.6-31.8) mmol/L Anion Gap 14.90 H (4.00-12.00) mmol/L BUN 60.0 H (9.0-27.0) mg/dL Est GFR (CKD-EPI) 45 L (>=60) BUN/Creatinine Ratio 50.00 H (12.00-20.00) Ratio Glucose 215 H (70-110) mg/dL POC Glucose (mg/dL) 197 H (70-110) mg/dL Osmolality (275-295) mOsm/kg Procalcitonin (0.02-0.50) ng/mL Urine pH (5.0-8.0) Urine Protein (Negative) Urine Glucose (UA) (Negative) Urine Ketones (Negative) Ur Leukocyte Esterase (Negative) Urine Mucus (None) /hpf Microbiology - Last 24 Hours (Table) 08/04/24 10:00 Blood Culture Gram Stain - Preliminary Blood Blood Culture - Preliminary Molecular ID
[2024-08-05] MEDS ORDERED: VANCOMYCIN IV PER PHARMACY 1 EACH MISC MISCELLANE PRN (10:35)
[2024-08-05] MEDS ORDERED: ZINC OXIDE PASTE (Z-GUARD) 1 APPLIC TOPICAL PRN (10:59)
--- NOTE | 2024-08-05 11:10 | P.CONS ---
History of Present Illness - Reason for Consult Consult date: 08/05/24 wound care - History of Present Illness This is a 84-year-old patient being seen by the wound care center for a stage II pressure ulcer to the right and left buttocks. Patient has past medical history significant for heart failure, dementia, diabetes, hypertension, myocardial infarction, pneumonia, neuropathy. Patient states that she spends the majority of her time sitting in a chair. She does not know how long the ulcerations have been there. The right buttocks ulceration measures approximately 1 x 1 x 0.1 cm with wound edges attached to the wound base no tunneling or undermining noted. Minimal slough present. Granulation seen throughout the wound bed. Left buttocks ulceration measures approximately 0.8 x 1 x 0.1 cm wound edges are attached to the wound base no tunneling or undermining noted. Minimal granu lation noted with slough and nonviable tissue present. Review Of Systems: Constitutional: No fever, no chills, no night sweats. No weight change. No weakness, fatigue or lethargy. No daytime sleepiness. Integumentary:reports wounds, no lesions. No rash or pruritus. No unusual bruising. No change in hair or nails. Physical exam: General Appearance: Alert, cooperative, no distress, appears stated age. Skin: See HPI all other Skin color, texture, tugor normal, no rashes or lesions. Neurologic: Alert oriented x3 Assessment: 1. Stage II pressure ulcer right buttocks 2. Stage II pressure ulcer left buttocks 3. Diabetes with skin ulceration Plan: 1. Apply honey gel and bordered foam to the site change Saturday. Apply zinc barrier cream to the periwound with dressing changes. Utilize appropriate surface for offloading. Utilize air-filled cushion while patient is sitting. Thank you for the consultation any questions please contact the wound care center DNP note has been reviewed and discussed with Dr. Jennings and the impression and plan of care has been directed as dictated. Past Medical History Past Medical History: Coronary Artery Disease (CAD), Heart Failure, Dementia, Diabetes Mellitus, Hypertension, Myocardial Infarction ([place]), Pneumonia, Vascular Disorder Additional Past Medical History / Comment(s): Pt recently admitted to [facility] on 03/14/21 with CHF/L pleural effusion. Other hx: Chronic L calf wound/WCC, NIDM type II, neuropathy L foot/leg, cardiomyopathy/sees Dr Knight in [place], MIs, mild cognitive impairment, incontinence, iron anemia, hypmagnesemia Last Myocardial Infarction Date:: unsure History of Any Multi-Drug Resistant Organisms: MRSA Year Discovered:: 10/11/21 MDRO Source:: Left Foot & Leg Past Surgical History: AICD, Bladder Surgery, Coronary Bypass/CABG, Heart Catheterization, Heart Catheterization With Stent, Hysterectomy, Joint Replacement, Pacemaker Additional Past Surgical History / Comment(s): 10/2020 AICD/pacer, PCI stents, 2010 CABG 3 vessel, L leg wound I&D, bkadder suspension, ovarian cyst removal, D&C, rectocele, colonoscopy, total r knee arthroplasty. Past Anesthesia/Blood Transfusion Reactions: No Reported Reaction Date of Last Stent Placement:: unknown Type of Cardiac Device: AICD Device Placement Date:: 2020 Past Psychological History: No Psychological Hx Reported Smoking Status: Never smoker Past Alcohol Use History: None Reported Past Drug Use History: None Reported - Past Family History Father Family Medical History: No Reported History Additional Family Medical History / Comment(s): Father had heart problems. He chewed tobacco, smoked and drank quit a bit of alcohol. Mother Family Medical History: Diabetes Mellitus Medications and Allergies Home Medications Medication Instructions Recorded Confirmed Type Aspirin EC [Ecotrin Low Dose] 81 mg PO DAILY@0800 03/14/21 08/03/24 History Donepezil [Aricept] 10 mg PO HS@2100 03/14/21 08/03/24 History Isosorbide Mononitrate ER [Imdur] 30 mg PO DAILY@0800 03/14/21 08/03/24 History Magnesium Oxide 400 mg PO DAILY@0800 03/14/21 08/03/24 History Benzocaine/Menthol [Dermoplast 1 spray TOPICAL BID PRN 04/16/21 08/03/24 History Pain Relieving [place]] Ferrous Sulfate [Iron (65 MG 325 mg PO BID@0800,1700 04/16/21 08/03/24 History Elemental)] Acetaminophen Tab [Tylenol] 650 mg PO Q6HR PRN tab 04/28/21 08/03/24 Rx Famotidine [Pepcid] 20 mg PO DAILY@0800 05/07/21 08/03/24 History INSULIN ASPART (NovoLOG) [NovoLOG 3 unit SQ BID@1100,1700 05/07/21 08/03/24 History (formulary)] L.acidoph,Paracasei, B.lactis 1 cap PO DAILY@0800 05/07/21 08/03/24 History [Probiotic] Melatonin 3 mg PO DAILY PRN 05/07/21 08/03/24 History Ondansetron [Zofran] 4 mg PO TID PRN 05/07/21 08/03/24 History Spironolactone [Aldactone] 12.5 mg PO DAILY@0800 05/07/21 08/03/24 History bisacodyL [Dulcolax] 10 mg RECTAL DAILY PRN 05/07/21 08/03/24 History HYDROcodone/APAP 5-325MG [[place] 1 tab PO Q6H PRN 06/03/21 08/03/24 History 5-325] Atorvastatin [Lipitor] 40 mg PO HS@2100 10/23/21 08/03/24 History Empagliflozin [Jardiance] 10 mg PO DAILY@0800 10/23/21 08/03/24 History Furosemide [Lasix] 20 mg PO DAILY@0800 10/23/21 08/03/24 History Emmanuel Packet 1 packet PO BID@0800,1700 10/23/21 08/03/24 History Sacubitril/Valsartan [Entresto 24 1 tab PO BID@0800,1700 10/23/21 08/03/24 History mg-26 mg Tablet] carvediloL [Coreg] 6.25 mg PO BID@0800,1700 10/23/21 08/03/24 History Cholecalciferol (Vitamin D3) 100 mcg PO DAILY@0800 08/03/24 08/03/24 History [Vitamin D3 (50 Mcg = 2000 Iu)] Eucerin Advanced Repair Cream 1 applic TOPICAL DAILY 08/03/24 08/03/24 History Folic Acid 0.4 mg PO DAILY@0800 08/03/24 08/03/24 History INSULIN ASPART (NovoLOG) [NovoLOG See Protocol SQ ACHS 08/03/24 08/03/24 History (formulary)] Insulin Degludec [Tresiba 25 units SQ HS@2130 08/03/24 08/03/24 History Flextouch U-100 Pen] Ipratropium-Albuterol Nebulize 3 ml INHALATION RT-DAILY@1700 08/03/24 08/03/24 History [Duoneb 0.5 mg-3 mg/3 ml Soln] Ipratropium-Albuterol Nebulize 3 ml INHALATION RT-Q6H PRN 08/03/24 08/03/24 History [Duoneb 0.5 mg-3 mg/3 ml Soln] Lactulose 10 gm PO BID@0800,1700 08/03/24 08/03/24 History Lidocaine 5% Cream 1 applic TOPICAL DAILY PRN 08/03/24 08/03/24 History Liquacel 30 ml PO DAILY@0800 08/03/24 08/03/24 History Loperamide [Imodium] 2 mg PO Q6H PRN 08/03/24 08/03/24 History Magnesium Hydroxide [Milk of 7,200 mg PO Q2D PRN 08/03/24 08/03/24 History Magnesia Concentrate] Multivitamins, Thera [Multivitamin 1 tab PO DAILY@1700 08/03/24 08/03/24 History (formulary)] Mylanta Double Strength 10 ml PO Q4H PRN 08/03/24 08/03/24 History 021-353-06if/5ml Patiromer Calcium Sorbitex 8.4 gm PO TH@1200 08/03/24 08/03/24 History [Veltassa] Semaglutide [Ozempic] 0.25 mg SQ WE@2130 08/03/24 08/03/24 History allopurinoL [Zyloprim] 100 mg PO DAILY@0800 08/03/24 08/03/24 History guaiFENesin [guaiFENesin Oral 200 mg PO Q4H PRN 08/03/24 08/03/24 History Solution] guaiFENesin [guaiFENesin Oral 200 mg PO QID 08/03/24 08/03/24 History Solution] Allergies Allergy/AdvReac Type Severity Reaction Status Date / Time Sulfa (Sulfonamide Allergy Anaphylaxis Verified 08/03/24 19:31 Antibiotics) Physical Exam Vitals: Vital Signs Temp Pulse Pulse Resp BP BP BP 08/05/24 07:31 97.5 F L 63 18 111/60 08/05/24 00:57 97.4 F L 82 20 117/61 08/04/24 20:00 97.8 F 58 L 19 120/57 08/04/24 15:49 97.9 F 85 18 122/56 Pulse Ox 08/05/24 07:31 93 L 08/05/24 00:57 95 08/04/24 20:00 94 L 08/04/24 15:49 97 Intake and Output 08/04/24 08/05/24 08/05/24 22:59 06:59 14:59 Intake Total 250 Balance 250 Intake: Oral 250 Other: Voiding Method External Catheter Weight 70.5 kg Results CBC & Chem 7: 08/05/24 03:21 08/05/24 03:21 Labs: Abnormal Lab Results - Last 24 Hours (Table) 08/04/24 08/04/24 08/04/24 Range/Units 10:00 10:00 11:03 WBC (4.50-10.00) X 10*3/uL RBC (4.10-5.20) X 10*6/uL Hgb (12.0-15.0) g/dL Hct (37.2-46.3) % Immature Gran # (0.00-0.04) X 10*3/uL Neutrophils # (1.80-7.70) X 10*3/uL Lymphocytes # (0.90-5.00) X 10*3/uL Eosinophils # (0.04-0.35) X 10*3/uL Carbon Dioxide (21.6-31.8) mmol/L Anion Gap (4.00-12.00) mmol/L BUN (9.0-27.0) mg/dL Est GFR (CKD-EPI) (>=60) BUN/Creatinine Ratio (12.00-20.00) Ratio Glucose (70-110) mg/dL POC Glucose (mg/dL) 306 H (70-110) mg/dL Osmolality 316 H (275-295) mOsm/kg Procalcitonin 23.20 H (0.02-0.50) ng/mL Urine pH (5.0-8.0) Urine Protein (Negative) Urine Glucose (UA) (Negative) Urine Ketones (Negative) Ur Leukocyte Esterase (Negative) Urine Mucus (None) /hpf 08/04/24 08/04/24 08/04/24 Range/Units 11:30 16:40 20:47 WBC (4.50-10.00) X 10*3/uL RBC (4.10-5.20) X 10*6/uL Hgb (12.0-15.0) g/dL Hct (37.2-46.3) % Immature Gran # (0.00-0.04) X 10*3/uL Neutrophils # (1.80-7.70) X 10*3/uL Lymphocytes # (0.90-5.00) X 10*3/uL Eosinophils # (0.04-0.35) X 10*3/uL Carbon Dioxide (21.6-31.8) mmol/L Anion Gap (4.00-12.00) mmol/L BUN (9.0-27.0) mg/dL Est GFR (CKD-EPI) (>=60) BUN/Creatinine Ratio (12.00-20.00) Ratio Glucose (70-110) mg/dL POC Glucose (mg/dL) 220 H 199 H (70-110) mg/dL Osmolality (275-295) mOsm/kg Procalcitonin (0.02-0.50) ng/mL Urine pH 8.5 H (5.0-8.0) Urine Protein Trace H (Negative) Urine Glucose (UA) 4+ H (Negative) Urine Ketones 1+ H (Negative) Ur Leukocyte Esterase Moderate H (Negative) Urine Mucus Rare H (None) /hpf 08/05/24 08/05/24 08/05/24 Range/Units 03:21 03:21 06:30 WBC 24.42 H (4.50-10.00) X 10*3/uL RBC 3.66 L (4.10-5.20) X 10*6/uL Hgb 11.4 L (12.0-15.0) g/dL Hct 35.5 L (37.2-46.3) % Immature Gran # 0.19 H (0.00-0.04) X 10*3/uL Neutrophils # 23.05 H (1.80-7.70) X 10*3/uL Lymphocytes # 0.49 L (0.90-5.00) X 10*3/uL Eosinophils # 0 L (0.04-0.35) X 10*3/uL Carbon Dioxide 20.1 L (21.6-31.8) mmol/L Anion Gap 14.90 H (4.00-12.00) mmol/L BUN 60.0 H (9.0-27.0) mg/dL Est GFR (CKD-EPI) 45 L (>=60) BUN/Creatinine Ratio 50.00 H (12.00-20.00) Ratio Glucose 215 H (70-110) mg/dL POC Glucose (mg/dL) 197 H (70-110) mg/dL Osmolality (275-295) mOsm/kg Procalcitonin (0.02-0.50) ng/mL Urine pH (5.0-8.0) Urine Protein (Negative) Urine Glucose (UA) (Negative) Urine Ketones (Negative) Ur Leukocyte Esterase (Negative) Urine Mucus (None) /hpf Microbiology - Last 24 Hours (Table) 08/04/24 10:00 Blood Culture Gram Stain - Preliminary Blood Blood Culture - Preliminary Molecular ID Assessment and Plan (1) Stage II pressure ulcer of left buttock Current Visit: Yes Status: Acute Code(s): L89.322 - PRESSURE ULCER OF LEFT BUTTOCK, STAGE 2 SNOMED Code(s): 46790726099214 (2) Stage II pressure ulcer of right buttock Current Visit: Yes Status: Acute Code(s): L89.312 - PRESSURE ULCER OF RIGHT BUTTOCK, STAGE 2 SNOMED Code(s): 33419676289523 (3) Type 2 diabetes mellitus with other skin ulcer Current Visit: Yes Status: Acute Code(s): E11.622 - TYPE 2 DIABETES MELLITUS WITH OTHER SKIN ULCER; L98.499 - NON-PRESSURE CHRONIC ULCER OF SKIN OF SITES W UNSP SEVERITY SNOMED Code(s): 426957712544884
[2024-08-05 12:00] LABS: Glucose,Whole Blood 405 mg/dL (70-110)
--- NOTE | 2024-08-05 13:30 | P.CRDCN ---
History of Present Illness Consult date: 08/04/24 Consult reason: congestive heart failure History of present illness: This is an 84-year-old female patient of Dr. Metzger with past medical history of diabetes, hypertension, hyperlipidemia, coronary artery disease status post CABG, ischemic cardiomyopathy status post biventricular ICD. We have been asked to evaluate the patient for CHF. CABG was greater than 10 years ago and took place in [place]. Patient was brought into the emergency center due to abnormal lab work and right lower chest pain that been going on for 10 days. Patient als o complains of generalized weakness, fever and chills and cough. Patient had pain in the right lower ribs along with a cough. Patient tested positive for RSV. Patient is currently residing at [facility]. Blood pressure 126/50, heart rate 89, pulse ox 99% on 2 L nasal cannula. Patient was last seen in the office on 04/14/2024 and at that time she had stable dyspnea on exertion and edema and lab work to be obtained and follow-up in 6 months. -EKG: Paced rhythm. -Chest x-ray: Cardiomegaly and mild pulmonary vascular congestion. -CT abdomen pelvis without contrast revealed no acute process. -Laboratory studies: WBC 13.9, hemoglobin 11.9, platelet count 236. Sodium 131, potassium 5.2, BUN 78 creatinine 1.11. proBNP 9600. RSV detected. -Home cardiac medications: Aspirin 81 mg daily, atorvastatin 40 mg at bedtime, Coreg 6.25 mg twice daily, Jardiance 10 mg daily, Lasix 20 mg daily, isosorbide 30 mg daily, magnesium oxide 400 mg daily, Entresto 24-26 mg 1 tablet twice daily, spironolactone 12.5 mg daily. -Cardiac catheterization performed 10/05/2020 revealed EF 37%, 100% proximal LAD, 60% mid circumflex, 100% proximal OM2, 50% mid RCA, 100% distal RCA, 3 patent grafts, patent ORTEGA to LAD, patent VG to PDA and patent VG to OM 2. -Cardiovascular surgery with three-vessel CABG 2011: ORTEGA to LAD, VG to OM 2, VG to PDA. -Echocardiogram performed 04/01/2024 in the office revealed EF 25 to 30%, moderate aortic regurgitation, severe mitral regurgitation, moderate tricuspid regurgitation, PASP 38 mmHg, moderate pulmonic regurgitation. Review Of Systems: At the time of my exam: CONSTITUTIONAL: Denies fever or chills. HEENT: Denies blurred vision, vision changes, or eye pain. Denies hemoptysis CARDIOVASCULAR: Denies chest pain. Denies orthopnea. Denies PND. Denies palpitations RESPIRATORY: Reports cough, shortness of breath. GASTROINTESTINAL: Denies abdominal pain. Denies nausea or vomiting. HEMATOLOGIC: Denies bleeding disorders. GENITOURINARY: Denies any blood in urine. SKIN: Denies puritis. Denies rash. Physical examination: Gen: This is an 84-year-old female in no acute distress VS: reviewed HEENT: Head is atraumatic, normocephalic. Pupils equal, round. Sclerae is a nicteric. NECK: Supple. No JVD. LUNGS: Diminished bilaterally. No intercostal retractions. HEART: Regular rate and rhythm. Systolic murmur. ABDOMEN: Soft No tenderness. EXTREMITIES: No pedal edema. No calf tenderness. NEUROLOGICAL: Patient is awake, alert and oriented x3. Assessment: RSV Acute on chronic systolic heart failure Coronary artery disease with previous CABG three-vessel in 2011 Ischemic cardiomyopathy with known EF of 25 to 30% status post biventricular ICD Hypertension Hyperlipidemia Diabetes Stage II pressure ulcers to the buttocks Plan: Resume patient's home cardiac medications Start patient on IV Lasix 20 mg twice daily Monitor KARO, daily weights, electrolytes and renal function Obtain 2-D echocardiogram and Doppler study to assess cardiac structure and function Further recommendations to follow based upon clinical course Thank you kindly for this consultation. Nurse practitioner note has been reviewed, I agree with documented findings and plan of care. Patient was seen and examined. Past Medical History Past Medical History: Coronary Artery Disease (CAD), Heart Failure, Dementia, Diabetes Mellitus, Hypertension, Myocardial Infarction (MA), Pneumonia, Vascular Disorder Additional Past Medical History / Comment(s): Pt recently admitted to [facility] on 03/14/21 with CHF/L pleural effusion. Other hx: Chronic L calf wound/WCC, NIDM type II, neuropathy L foot/leg, cardiomyopathy/[facility], MIs, mild cognitive impairment, incontinence, iron anemia, hypmagnesemia Last Myocardial Infarction Date:: unsure History of Any Multi-Drug Resistant Organisms: MRSA Date of last positivie culture/infection: 10/11/21 MDRO Source:: Left Foot & Leg Past Surgical History: AICD, Bladder Surgery, Coronary Bypass/CABG, Heart Catheterization, Heart Catheterization With Stent, Hysterectomy, Joint Replacement, Pacemaker Additional Past Surgical History / Comment(s): 10/2020 AICD/pacer, PCI stents, 2010 CABG 3 vessel, L leg wound I&D, bkadder suspension, ovarian cyst removal, D&C, rectocele, colonoscopy, total r knee arthroplasty. Past Anesthesia/Blood Transfusion Reactions: No Reported Reaction Date of Last Stent Placement:: unknown Type of Cardiac Device: AICD Device Placement Date:: 2020 Past Psychological History: No Psychological Hx Reported Smoking Status: Never smoker Past Alcohol Use History: None Reported Past Drug Use History: None Reported - Past Family History Father Family Medical History: No Reported History Additional Family Medical History / Comment(s): Father had heart problems. He chewed tobacco, smoked and drank quit a bit of alcohol. Mother Family Medical History: Diabetes Mellitus Medications and Allergies Home Medications Medication Instructions Recorded Confirmed Type Aspirin EC [Ecotrin Low Dose] 81 mg PO DAILY@0800 03/14/21 08/03/24 History Donepezil [Aricept] 10 mg PO HS@2100 03/14/21 08/03/24 History Isosorbide Mononitrate ER [Imdur] 30 mg PO DAILY@0800 03/14/21 08/03/24 History Magnesium Oxide 400 mg PO DAILY@0800 03/14/21 08/03/24 History Benzocaine/Menthol [Dermoplast 1 spray TOPICAL BID PRN 04/16/21 08/03/24 History Pain Relieving [place]] Ferrous Sulfate [Iron (65 MG 325 mg PO BID@0800,1700 04/16/21 08/03/24 History Elemental)] Acetaminophen Tab [Tylenol] 650 mg PO Q6HR PRN tab 04/28/21 08/03/24 Rx Famotidine [Pepcid] 20 mg PO DAILY@0800 05/07/21 08/03/24 History INSULIN ASPART (NovoLOG) [NovoLOG 3 unit SQ BID@1100,1700 05/07/21 08/03/24 History (formulary)] L.acidoph,Paracasei, B.lactis 1 cap PO DAILY@0800 05/07/21 08/03/24 History [Probiotic] Melatonin 3 mg PO DAILY PRN 05/07/21 08/03/24 History Ondansetron [Zofran] 4 mg PO TID PRN 05/07/21 08/03/24 History Spironolactone [Aldactone] 12.5 mg PO DAILY@0800 05/07/21 08/03/24 History bisacodyL [Dulcolax] 10 mg RECTAL DAILY PRN 05/07/21 08/03/24 History HYDROcodone/APAP 5-325MG [[place] 1 tab PO Q6H PRN 06/03/21 08/03/24 History 5-325] Atorvastatin [Lipitor] 40 mg PO HS@2100 10/23/21 08/03/24 History Empagliflozin [Jardiance] 10 mg PO DAILY@0800 10/23/21 08/03/24 History Furosemide [Lasix] 20 mg PO DAILY@0800 10/23/21 08/03/24 History Emmanuel Packet 1 packet PO BID@0800,1700 10/23/21 08/03/24 History Sacubitril/Valsartan [Entresto 24 1 tab PO BID@0800,1700 10/23/21 08/03/24 History mg-26 mg Tablet] carvediloL [Coreg] 6.25 mg PO BID@0800,1700 10/23/21 08/03/24 History Cholecalciferol (Vitamin D3) 100 mcg PO DAILY@0800 08/03/24 08/03/24 History [Vitamin D3 (50 Mcg = 2000 Iu)] Eucerin Advanced Repair Cream 1 applic TOPICAL DAILY 08/03/24 08/03/24 History Folic Acid 0.4 mg PO DAILY@0800 08/03/24 08/03/24 History INSULIN ASPART (NovoLOG) [NovoLOG See Protocol SQ ACHS 08/03/24 08/03/24 History (formulary)] Insulin Degludec [Tresiba 25 units SQ HS@2130 08/03/24 08/03/24 History Flextouch U-100 Pen] Ipratropium-Albuterol Nebulize 3 ml INHALATION RT-DAILY@1700 08/03/24 08/03/24 History [Duoneb 0.5 mg-3 mg/3 ml Soln] Ipratropium-Albuterol Nebulize 3 ml INHALATION RT-Q6H PRN 08/03/24 08/03/24 History [Duoneb 0.5 mg-3 mg/3 ml Soln] Lactulose 10 gm PO BID@0800,1700 08/03/24 08/03/24 History Lidocaine 5% Cream 1 applic TOPICAL DAILY PRN 08/03/24 08/03/24 History Liquacel 30 ml PO DAILY@0800 08/03/24 08/03/24 History Loperamide [Imodium] 2 mg PO Q6H PRN 08/03/24 08/03/24 History Magnesium Hydroxide [Milk of 7,200 mg PO Q2D PRN 08/03/24 08/03/24 History Magnesia Concentrate] Multivitamins, Thera [Multivitamin 1 tab PO DAILY@1700 08/03/24 08/03/24 History (formulary)] Mylanta Double Strength 10 ml PO Q4H PRN 08/03/24 08/03/24 History 462-094-38mc/5ml Patiromer Calcium Sorbitex 8.4 gm PO TH@1200 08/03/24 08/03/24 History [Veltassa] Semaglutide [Ozempic] 0.25 mg SQ WE@2130 08/03/24 08/03/24 History allopurinoL [Zyloprim] 100 mg PO DAILY@0800 08/03/24 08/03/24 History guaiFENesin [guaiFENesin Oral 200 mg PO Q4H PRN 08/03/24 08/03/24 History Solution] guaiFENesin [guaiFENesin Oral 200 mg PO QID 08/03/24 08/03/24 History Solution] Allergies Allergy/AdvReac Type Severity Reaction Status Date / Time Sulfa (Sulfonamide Allergy Anaphylaxis Verified 08/03/24 19:31 Antibiotics) Physical Exam Vitals: Vital Signs Temp Pulse Resp BP Pulse Ox 08/04/24 10:37 87 18 125/76 99 08/04/24 07:51 89 18 126/50 99 08/04/24 04:53 98.8 F 75 18 112/45 99 08/04/24 02:11 93 18 117/56 98 08/03/24 22:37 100 18 103/52 97 08/03/24 22:05 78 08/03/24 21:57 75 08/03/24 21:51 98.8 F 105 H 20 93/80 98 08/03/24 16:56 97.9 F 82 16 148/72 98 Intake and Output 08/03/24 08/04/24 08/04/24 22:59 06:59 14:59 Other: Weight 77.111 kg Results 08/05/24 03:21 08/05/24 03:21 Cardiac Enzymes 08/03/24 08/04/24 Range/Units 18:41 03:32 AST 17 22 (14-36) U/L CBC 08/03/24 08/04/24 Range/Units 18:41 03:32 WBC 19.8 H 32.9 H (3.8-10.6) k/uL RBC 4.34 3.92 (3.80-5.40) m/uL Hgb 13.0 11.9 (11.4-16.0) gm/dL Hct 42.6 39.2 (34.0-46.0) % Plt Count 331 236 (150-450) k/uL Comprehensive Metabolic Panel 08/03/24 08/04/24 Range/Units 18:41 03:32 Sodium 131 L 131 L (137-145) mmol/L Potassium 5.6 H 5.2 H (3.5-5.1) mmol/L Chloride 97 L 101 (98-107) mmol/L Carbon Dioxide 24 21 L (22-30) mmol/L BUN 77 H 78 H (7-17) mg/dL Creatinine 1.04 1.11 H (0.52-1.04) mg/dL Glucose 287 H 260 H (74-99) mg/dL Calcium 10.5 H 10.0 (8.4-10.2) mg/dL AST 17 22 (14-36) U/L ALT 20 18 (4-34) U/L Alkaline Phosphatase 101 77 (38-126) U/L Total Protein 6.9 5.8 L (6.3-8.2) g/dL Albumin 3.7 2.9 L (3.5-5.0) g/dL Current Medications Generic Name Dose Route Start Last Admin Trade Name Freq PRN Reason Stop Dose Admin Acetaminophen 650 mg 08/04/24 09:25 Acetaminophen Tab 325 Mg Tab PO Q6HR PRN Mild Pain or Fever > 100.5 Al Hydroxide/Mg Hydroxide 30 ml 08/04/24 09:25 Mag Hydrox/Al Hydrox/Simeth 30 Ml Cup PO Q4H PRN Indigestion Albuterol Sulfate 2.5 mg 08/04/24 08:32 Albuterol Nebulized 2.5 Mg/3 Ml INHALATION RT-TID PRN Shortness Of Breath Or Wheezing Albuterol/Ipratropium 3 ml 08/04/24 09:33 Ipratropium-Albuterol 3 Ml Neb INHALATION RT-Q4H PRN Wheezing Allopurinol 100 mg 08/05/24 08:00 Allopurinol 100 Mg Tab PO DAILY@0800 [facility] Aspirin 81 mg 08/05/24 08:00 Aspirin 81 Mg PO DAILY@0800 [facility] Atorvastatin Calcium 40 mg 08/04/24 21:00 Atorvastatin 40 Mg Tab PO HS@2100 [facility] Azithromycin 500 mg 08/04/24 09:00 08/04/24 10:15 Azithromycin 500 Mg Tab PO 08/06/24 09:01 500 mg DAILY [facility] Administration Protocol Benzocaine/Menthol 1 gm 08/04/24 09:25 Benzocaine/Menthol [place] 1 Gm/[place] Aerosol TOPICAL BID PRN LEFT LEG WOUND PAIN Protocol Bisacodyl 10 mg 08/04/24 10:00 Bisacodyl 10 Mg Supp RECTAL DAILY PRN Constipation Carvedilol 6.25 mg 08/04/24 17:00 Carvedilol 6.25 Mg Tab PO BID@0800,1700 [facility] Dapagliflozin 5 mg 08/05/24 08:00 Dapagliflozin Propanediol 5 Mg Tablet PO DAILY@0800 [facility] Dextrose/Water 25 ml 08/04/24 09:30 Dextrose 50% Syringe 50 Ml IVP PER PROTOCOL PRN Hypoglycemia Protocol Dextrose/Water 50 ml 08/04/24 09:30 Dextrose 50% Syringe 50 Ml IVP PER PROTOCOL PRN Hypoglycemia Protocol Donepezil HCl 10 mg 08/04/24 21:00 Donepezil 10 Mg Tab PO HS@2100 [facility] Famotidine 20 mg 08/05/24 08:00 Famotidine 20 Mg Tab PO DAILY@0800 [facility] Ferrous Sulfate 325 mg 08/04/24 17:00 Ferrous Sulfate 325 Mg Tab PO BID@0800,1700 [facility] Folic Acid 1 mg 08/05/24 08:00 Folic Acid 1 Mg Tab PO DAILY@0800 [facility] Furosemide 20 mg 08/04/24 12:00 Furosemide 10 Mg/Ml 2 Ml Vial IV Q12HR [facility] Guaifenesin 200 mg 08/04/24 09:25 Guaifenesin Syrup 100mg/5ml 200 Mg/10 Ml Cup PO Q4H PRN Cough Sodium Chloride 1,000 mls @ 75 mls/hr 08/03/24 21:45 08/04/24 10:40 Saline 0.9% IV Not Given .[id number] [facility] Ceftriaxone Sodium 2 gm/ 50 mls @ 100 mls/hr 08/04/24 09:00 08/04/24 10:14 Sodium Chloride IVPB 100 mls/hr Q24HR [facility] Administration Protocol Insulin Glargine 15 unit 08/04/24 21:00 Insulin Glargine (Lantus) 100 Unit/Ml Syr SQ HS [facility] Insulin Human Lispro 0 unit 08/04/24 12:30 08/04/24 11:09 Insulin Lispro (Humalog) 100 Unit/Ml 10 Ml Vl SQ 5 unit ACHS [facility] Administration Protocol Insulin Human Lispro 3 unit 08/04/24 11:00 08/04/24 11:09 Insulin Lispro (Humalog) 100 Unit/Ml 10 Ml Vl SQ 3 unit BID@1100,1700 [facility] Administration Isosorbide Mononitrate 30 mg 08/05/24 08:00 Isosorbide Mononitrate Er 30 Mg Tab.Er.24h PO DAILY@0800 [facility] Lactulose 10 gm 08/04/24 17:00 Lactulose 20 Gm/30 Ml Cup PO BID@0800,1700 [facility] Lidocaine HCl 1 ml 08/04/24 09:25 Lidocaine 2% Glydo Jelly 6 Ml Appl TOPICAL DAILY PRN wound pain Melatonin 3 mg 08/04/24 09:25 Melatonin 3 Mg Tablet PO DAILY PRN Insomnia Morphine Sulfate 4 mg 08/03/24 21:43 Morphine Sulfate 4 Mg/Ml Syringe IV Q4HR PRN Severe Pain (Scale 7 to 10) Multi-Ingred Cream/Lotion/Oil/Oint 1 applic 08/05/24 09:00 Mineral Oil-White Petrolatum 120 Gm Jar TOPICAL DAILY [facility] Naloxone HCl 0.2 mg 08/03/24 21:43 Naloxone 0.4 Mg/Ml 1 Ml Vial IV Q2M PRN Opioid Reversal Non-Formulary Medication 8.4 gm 08/06/24 12:00 Patiromer Calcium Sorbitex [Veltassa] PO TH@1200 [facility] Ondansetron HCl 4 mg 08/03/24 21:43 Ondansetron 4 Mg/2 Ml Vial IVP Q8HR PRN Nausea And Vomiting Ondansetron HCl 4 mg 08/04/24 09:25 Ondansetron Odt 4 Mg Tab PO TID PRN Nausea Pantoprazole Sodium 40 mg 08/04/24 09:00 08/04/24 08:13 Pantoprazole 40 Mg/10 Ml Vial IV 08/04/24 12:00 40 mg DAILY [facility] Administration Pantoprazole Sodium 40 mg 08/05/24 07:30 Pantoprazole 40 Mg Tablet PO [id number] [facility] Sacubitril/Valsartan 1 each 08/04/24 17:00 Sacubitril/Valsartan 24 Mg-26 Mg Tablet PO BID@0800,1700 [facility] Intake and Output 08/03/24 08/04/24 08/04/24 22:59 06:59 14:59 Other: Weight 77.111 kg 08/04/24 03:32 08/04/24 03:32
--- NOTE | 2024-08-05 13:34 | P.PN ---
Subjective Progress Note Date: 08/05/24 This is an 84-year-old female patient of Dr. Metzger with past medical history of diabetes, hypertension, hyperlipidemia, coronary artery disease status post CABG, ischemic cardiomyopathy status post biventricular ICD. We have been asked to evaluate the patient for CHF. CABG was greater than 10 years ago and took place in [place]. Patient was brought into the emergency center due to abnormal lab work and right lower chest pain that been going on for 10 days. Patient also complains of generalized weakness, fever and chills and cough. Patient had pain in the right lower ribs along with a cough. Patient tested positive for RSV. Patient is currently residing at [facility]. Blood pressure 126/50, heart rate 89, pulse ox 99% on 2 L nasal cannula. Patient was last seen in the office on 04/14/2024 and at that time she had stable dyspnea on exertion and edema and lab work to be obtained and follow-up in 6 months. -EKG: Paced rhythm. -Chest x-ray: Cardiomegaly and mild pulmonary vascular congestion. -CT abdomen pelvis without contrast revealed no acute process. -Laboratory studies: WBC 13.9, hemoglobin 11.9, platelet count 236. Sodium 131, potassium 5.2, BUN 78 creatinine 1.11. proBNP 9600. RSV detected. -Home cardiac medications: Aspirin 81 mg daily, atorvastatin 40 mg at bedtime, Coreg 6.25 mg twice daily, Jardiance 10 mg daily, Lasix 20 mg daily, isosorbide 30 mg daily, magnesium oxide 400 mg daily, Entresto 24-26 mg 1 tablet twice daily, spironolactone 12.5 mg daily. -Cardiac catheterization performed 10/05/2020 revealed EF 37%, 100% proximal LAD, 60% mid circumflex, 100% proximal OM2, 50% mid RCA, 100% distal RCA, 3 patent grafts, patent ORTEGA to LAD, patent VG to PDA and patent VG to OM 2. -Cardiovascular surgery with three-vessel CABG 2011: ORTEGA to LAD, VG to OM 2, VG to PDA. -Echocardiogram performed 04/01/2024 in the office revealed EF 25 to 30%, moderate aortic regurgitation, severe mitral regurgitation, moderate tricuspid regurgitation, PASP 38 mmHg, moderate pulmonic regurgitation. 08/05 Patient is seen and examined on the [facility] floor. Yesterday, we started the patient on IV Lasix 20 mg twice daily. Blood pressure 111/60, heart rate 63, pulse ox 93% on 2 L nasal cannula. Repeat blood work reveals WBC 24.4, hemoglobin 11.4, sodium 139, potassium 4.8, BUN 60 creatinine 1.2. Blood culture is reported molecular ID. Patient has been started on ceftriaxone. The consult was added for ID. Attending is requesting SILVIANO which we will hold off on until patient is evaluated by infectious disease. Echocardiogram reveals EF of 30 to 35% with mild to moderate mitral regurgitation, moderate aortic regurgitation and mild to moderate tricuspid regurgitation with moderate pulmonary hypertension. No pericardial effusion. Severe hypokinesia involving the anterior septal portion as well as apical septal portion. CT of the abdomen pelvis revealed no acute process. Physical examination: Gen: This is an 84-year-old female in no acute distress VS: reviewed HEENT: Head is atraumatic, normocephalic. Pupils equal, round. Sclerae is anicteric. NECK: Supple. No JVD. LUNGS: Diminished bilaterally. No intercostal retractions. HEART: Regular rate and rhythm. Systolic murmur. ABDOMEN: Soft No tenderness. EXTREMITIES: No pedal edema. No calf tenderness. Assessment: RSV Acute on chronic systolic heart failure Coronary artery disease with previous CABG three-vessel in 2012 Ischemic cardiomyopathy with known EF of 25 to 30% status post biventricular ICD Hypertension Hyperlipidemia Diabetes Stage II pressure ulcers to the buttocks Plan: Continue patient's home cardiac medications Transition IV Lasix to oral 40 mg in the morning and 20 mg in the evening Await ID recommendations regarding need for SILVIANO Further recommendations to follow based upon clinical course Nurse practitioner note has been reviewed, I agree with documented findings and plan of care. Patient was seen and examined. Objective - Vital Signs Vital signs: Vital Signs Temp 97.5 F L 08/05/24 07:31 Pulse 63 08/05/24 07:31 Resp 18 08/05/24 07:31 BP 111/60 08/05/24 07:31 Pulse Ox 93 L 08/05/24 07:31 FiO2 Intake & Output 08/04/24 08/05/24 08/05/24 18:59 06:59 18:59 Intake Total 967 Output Total 400 Balance 567 Weight 70.5 kg Intake: Oral 967 Output: Urine 400 Other: Voiding Method External Catheter - Labs CBC & Chem 7: 08/05/24 03:21 08/05/24 03:21 Labs: Abnormal Lab Results - Last 24 Hours (Table) 08/04/24 08/04/24 08/04/24 Range/Units 10:00 10:00 16:40 WBC (4.50-10.00) X 10*3/uL RBC (4.10-5.20) X 10*6/uL Hgb (12.0-15.0) g/dL Hct (37.2-46.3) % Immature Gran # (0.00-0.04) X 10*3/uL Neutrophils # (1.80-7.70) X 10*3/uL Lymphocytes # (0.90-5.00) X 10*3/uL Eosinophils # (0.04-0.35) X 10*3/uL Carbon Dioxide (21.6-31.8) mmol/L Anion Gap (4.00-12.00) mmol/L BUN (9.0-27.0) mg/dL Est GFR (CKD-EPI) (>=60) BUN/Creatinine Ratio (12.00-20.00) Ratio Glucose (70-110) mg/dL POC Glucose (mg/dL) 220 H (70-110) mg/dL Osmolality 316 H (275-295) mOsm/kg Procalcitonin 23.20 H (0.02-0.50) ng/mL 08/04/24 08/05/24 08/05/24 Range/Units 20:47 03:21 03:21 WBC 24.42 H (4.50-10.00) X 10*3/uL RBC 3.66 L (4.10-5.20) X 10*6/uL Hgb 11.4 L (12.0-15.0) g/dL Hct 35.5 L (37.2-46.3) % Immature Gran # 0.19 H (0.00-0.04) X 10*3/uL Neutrophils # 23.05 H (1.80-7.70) X 10*3/uL Lymphocytes # 0.49 L (0.90-5.00) X 10*3/uL Eosinophils # 0 L (0.04-0.35) X 10*3/uL Carbon Dioxide 20.1 L (21.6-31.8) mmol/L Anion Gap 14.90 H (4.00-12.00) mmol/L BUN 60.0 H (9.0-27.0) mg/dL Est GFR (CKD-EPI) 45 L (>=60) BUN/Creatinine Ratio 50.00 H (12.00-20.00) Ratio Glucose 215 H (70-110) mg/dL POC Glucose (mg/dL) 199 H (70-110) mg/dL Osmolality (275-295) mOsm/kg Procalcitonin (0.02-0.50) ng/mL 08/05/24 08/05/24 Range/Units 06:30 11:59 WBC (4.50-10.00) X 10*3/uL RBC (4.10-5.20) X 10*6/uL Hgb (12.0-15.0) g/dL Hct (37.2-46.3) % Immature Gran # (0.00-0.04) X 10*3/uL Neutrophils # (1.80-7.70) X 10*3/uL Lymphocytes # (0.90-5.00) X 10*3/uL Eosinophils # (0.04-0.35) X 10*3/uL Carbon Dioxide (21.6-31.8) mmol/L Anion Gap (4.00-12.00) mmol/L BUN (9.0-27.0) mg/dL Est GFR (CKD-EPI) (>=60) BUN/Creatinine Ratio (12.00-20.00) Ratio Glucose (70-110) mg/dL POC Glucose (mg/dL) 197 H 405 H (70-110) mg/dL Osmolality (275-295) mOsm/kg Procalcitonin (0.02-0.50) ng/mL Microbiology - Last 24 Hours (Table) 08/04/24 10:00 Blood Culture Gram Stain - Preliminary Blood Blood Culture - Preliminary Molecular ID
[2024-08-05] MEDS: FUROSEMIDE 20 MG TAB PO SCH (17:09)
[2024-08-05 17:11] LABS: Glucose,Whole Blood 230 mg/dL (70-110)
[2024-08-05 20:34] LABS: Glucose,Whole Blood 275 mg/dL (70-110)
--- NOTE | 2024-08-05 23:51 | P.CONS ---
History of Present Illness - Reason for Consult Consult date: 08/04/24 Pyelonephritis, pressure ulcer Requesting physician: Manuel Berry - Chief Complaint Weakness x days - History of Present Illness Patient is a 84-year-old female with a past medical history significant for Coronary Artery Disease (CAD), Heart Failure, Dementia, Diabetes Mellitus, Hypertension, Myocardial Infarction ([place]), Pneumonia, Vascular Disorder coming to the ER concerning for generalized weakness fever and chills that apparently going on for a day or 2 before the patient has been brought into the hospital patient denies having any headache or significant URI symptoms denies any chest pain, no shortness of breath and cough without bringing up any sputum nausea but no vomiting no abdominal pain no diarrhea on presentation to the hospital the patient was afebrile no fever have recorded subsequently patient was mildly tachycardic at 1 point but not hypotensive currently on a 2 L nasal cannula oxygen patient did have a white count of 19.9 which is up to 32.9 BUN and creatinine has been mildly elevated liver enzymes are normal urine shows moderate leukocyte Estrace but 1 WBC tested positive for RSV patient did have a chest x-ray cardiomegaly mild pulm vascular congestion did have abdominal pelvis CT with no acute process seen for the patient's symptoms patient has been started on Rocephin and Zithromax infectious he was consulted for further management of antibiotic therapy patient has received a dose of Solu-Medrol in the ER yesterday Review of Systems Positive point and negatives has been mentioned in the HPI, complete review of systems was performed and all other systems are negative Past Medical History Past Medical History: Coronary Artery Disease (CAD), Heart Failure, Dementia, Diabetes Mellitus, Hypertension, Myocardial Infarction ([place]), Pneumonia, Vascular Disorder Additional Past Medical History / Comment(s): Pt recently admitted to [facility] on 03/14/21 with CHF/L pleural effusion. Other hx: Chronic L calf wound/WCC, NIDM type II, neuropathy L foot/leg, cardiomyopathy/sees Dr Knight in [facility] [place], MIs, mild cognitive impairment, incontinence, iron anemia, hypmagnesemia Last Myocardial Infarction Date:: unsure History of Any Multi-Drug Resistant Organisms: MRSA Year Discovered:: 10/11/21 MDRO Source:: Left Foot & Leg Past Surgical History: AICD, Bladder Surgery, Coronary Bypass/CABG, Heart Catheterization, Heart Catheterization With Stent, Hysterectomy, Joint Replacement, Pacemaker Additional Past Surgical History / Comment(s): 10/2020 AICD/pacer, PCI stents, 2010 CABG 3 vessel, L leg wound I&D, bkadder suspension, ovarian cyst removal, D&C, rectocele, colonoscopy, total r knee arthroplasty. Past Anesthesia/Blood Transfusion Reactions: No Reported Reaction Date of Last Stent Placement:: unknown Type of Cardiac Device: AICD Device Placement Date:: 2020 Past Psychological History: No Psychological Hx Reported Smoking Status: Never smoker Past Alcohol Use History: None Reported Past Drug Use History: None Reported - Past Family History Father Family Medical History: No Reported History Additional Family Medical History / Comment(s): Father had heart problems. He chewed tobacco, smoked and drank quit a bit of alcohol. Mother Family Medical History: Diabetes Mellitus Medications and Allergies Home Medications Medication Instructions Recorded Confirmed Type Aspirin EC [Ecotrin Low Dose] 81 mg PO DAILY@0800 03/14/21 08/03/24 History Donepezil [Aricept] 10 mg PO HS@2100 03/14/21 08/03/24 History Isosorbide Mononitrate ER [Imdur] 30 mg PO DAILY@0800 03/14/21 08/03/24 History Magnesium Oxide 400 mg PO DAILY@0800 03/14/21 08/03/24 History Benzocaine/Menthol [Dermoplast 1 spray TOPICAL BID PRN 04/16/21 08/03/24 History Pain Relieving Eckley] Ferrous Sulfate [Iron (65 MG 325 mg PO BID@0800,1700 04/16/21 08/03/24 History Elemental)] Acetaminophen Tab [Tylenol] 650 mg PO Q6HR PRN tab 04/28/21 08/03/24 Rx Famotidine [Pepcid] 20 mg PO DAILY@0800 05/07/21 08/03/24 History INSULIN ASPART (NovoLOG) [NovoLOG 3 unit SQ BID@1100,1700 05/07/21 08/03/24 History (formulary)] L.acidoph,Paracasei, B.lactis 1 cap PO DAILY@0800 05/07/21 08/03/24 History [Probiotic] Melatonin 3 mg PO DAILY PRN 05/07/21 08/03/24 History Ondansetron [Zofran] 4 mg PO TID PRN 05/07/21 08/03/24 History Spironolactone [Aldactone] 12.5 mg PO DAILY@0800 05/07/21 08/03/24 History bisacodyL [Dulcolax] 10 mg RECTAL DAILY PRN 05/07/21 08/03/24 History HYDROcodone/APAP 5-325MG [[place] 1 tab PO Q6H PRN 06/03/21 08/03/24 History 5-325] Atorvastatin [Lipitor] 40 mg PO HS@2100 10/23/21 08/03/24 History Empagliflozin [Jardiance] 10 mg PO DAILY@0800 10/23/21 08/03/24 History Furosemide [Lasix] 20 mg PO DAILY@0800 10/23/21 08/03/24 History Emmanuel Packet 1 packet PO BID@0800,1700 10/23/21 08/03/24 History Sacubitril/Valsartan [Entresto 24 1 tab PO BID@0800,1700 10/23/21 08/03/24 History mg-26 mg Tablet] carvediloL [Coreg] 6.25 mg PO BID@0800,1700 10/23/21 08/03/24 History Cholecalciferol (Vitamin D3) 100 mcg PO DAILY@0800 08/03/24 08/03/24 History [Vitamin D3 (50 Mcg = 2000 Iu)] Eucerin Advanced Repair Cream 1 applic TOPICAL DAILY 08/03/24 08/03/24 History Folic Acid 0.4 mg PO DAILY@0800 08/03/24 08/03/24 History INSULIN ASPART (NovoLOG) [NovoLOG See Protocol SQ ACHS 08/03/24 08/03/24 History (formulary)] Insulin Degludec [Tresiba 25 units SQ HS@2130 08/03/24 08/03/24 History Flextouch U-100 Pen] Ipratropium-Albuterol Nebulize 3 ml INHALATION RT-DAILY@1700 08/03/24 08/03/24 History [Duoneb 0.5 mg-3 mg/3 ml Soln] Ipratropium-Albuterol Nebulize 3 ml INHALATION RT-Q6H PRN 08/03/24 08/03/24 History [Duoneb 0.5 mg-3 mg/3 ml Soln] Lactulose 10 gm PO BID@0800,1700 08/03/24 08/03/24 History Lidocaine 5% Cream 1 applic TOPICAL DAILY PRN 08/03/24 08/03/24 History Liquacel 30 ml PO DAILY@0800 08/03/24 08/03/24 History Loperamide [Imodium] 2 mg PO Q6H PRN 08/03/24 08/03/24 History Magnesium Hydroxide [Milk of 7,200 mg PO Q2D PRN 08/03/24 08/03/24 History Magnesia Concentrate] Multivitamins, Thera [Multivitamin 1 tab PO DAILY@1700 08/03/24 08/03/24 History (formulary)] Mylanta Double Strength 10 ml PO Q4H PRN 08/03/24 08/03/24 History [id number]/5ml Patiromer Calcium Sorbitex 8.4 gm PO TH@1200 08/03/24 08/03/24 History [Veltassa] Semaglutide [Ozempic] 0.25 mg SQ WE@2130 08/03/24 08/03/24 History allopurinoL [Zyloprim] 100 mg PO DAILY@0800 08/03/24 08/03/24 History guaiFENesin [guaiFENesin Oral 200 mg PO Q4H PRN 08/03/24 08/03/24 History Solution] guaiFENesin [guaiFENesin Oral 200 mg PO QID 08/03/24 08/03/24 History Solution] Allergies Allergy/AdvReac Type Severity Reaction Status Date / Time Sulfa (Sulfonamide Allergy Anaphylaxis Verified 08/03/24 19:31 Antibiotics) Physical Exam Vitals: Vital Signs Temp Pulse Resp BP Pulse Ox 08/04/24 10:37 87 18 125/76 99 08/04/24 07:51 89 18 126/50 99 08/04/24 04:53 98.8 F 75 18 112/45 99 08/04/24 02:11 93 18 117/56 98 08/03/24 22:37 100 18 103/52 97 08/03/24 22:05 78 08/03/24 21:57 75 08/03/24 21:51 98.8 F 105 H 20 93/80 98 08/03/24 16:56 97.9 F 82 16 148/72 98 Intake and Output 08/03/24 08/04/24 08/04/24 22:59 06:59 14:59 Other: Weight 77.111 kg GENERAL DESCRIPTION: Elderly female lying in bed, no distress. No tachypnea or accessory muscle of respiration use. HEENT: Shows Pallor , no scleral icterus. Oral mucous membrane is dry. NECK: Trachea central, no thyromegaly. LUNGS: Unlabored breathing. Decreased intensity breath sounds HEART: S1, S2, regular rate and rhythm. No loud murmur ABDOMEN: Soft, no tenderness , guarding or rigidity, no organomegaly EXTREMITIES: No edema of feet. SKIN: No rash, no masses palpable. NEUROLOGICAL: The patient is awake, mood and affect normal. Results CBC & Chem 7: 08/05/24 03:21 08/05/24 03:21 Labs: Abnormal Lab Results - Last 24 Hours (Table) 08/03/24 08/03/24 08/03/24 Range/Units 18:41 18:41 18:41 WBC 19.8 H (3.8-10.6) k/uL MCHC 30.6 L (31.0-37.0) g/dL Neutrophils # 18.6 H (1.3-7.7) k/uL Lymphocytes # 0.5 L (1.0-4.8) k/uL Monocytes # (0-1.0) k/uL Sodium 131 L (137-145) mmol/L Potassium 5.6 H (3.5-5.1) mmol/L Chloride 97 L (98-107) mmol/L Carbon Dioxide (22-30) mmol/L BUN 77 H (7-17) mg/dL Creatinine (0.52-1.04) mg/dL Glucose 287 H (74-99) mg/dL POC Glucose (mg/dL) (70-110) mg/dL Calcium 10.5 H (8.4-10.2) mg/dL Magnesium (1.6-2.3) mg/dL Total Protein (6.3-8.2) g/dL Albumin (3.5-5.0) g/dL Urine pH (5.0-8.0) Urine Protein (Negative) Urine Glucose (UA) (Negative) Urine Ketones (Negative) Ur Leukocyte Esterase (Negative) Urine Mucus (None) /hpf RSV (PCR) Detected A (Not Detectd) 08/04/24 08/04/24 08/04/24 Range/Units 03:32 03:32 11:03 WBC 32.9 H (3.8-10.6) k/uL MCHC 30.4 L (31.0-37.0) g/dL Neutrophils # 31.1 H (1.3-7.7) k/uL Lymphocytes # 0.5 L (1.0-4.8) k/uL Monocytes # 1.1 H (0-1.0) k/uL Sodium 131 L (137-145) mmol/L Potassium 5.2 H (3.5-5.1) mmol/L Chloride (98-107) mmol/L Carbon Dioxide 21 L (22-30) mmol/L BUN 78 H (7-17) mg/dL Creatinine 1.11 H (0.52-1.04) mg/dL Glucose 260 H (74-99) mg/dL POC Glucose (mg/dL) 306 H (70-110) mg/dL Calcium (8.4-10.2) mg/dL Magnesium 2.5 H (1.6-2.3) mg/dL Total Protein 5.8 L (6.3-8.2) g/dL Albumin 2.9 L (3.5-5.0) g/dL Urine pH (5.0-8.0) Urine Protein (Negative) Urine Glucose (UA) (Negative) Urine Ketones (Negative) Ur Leukocyte Esterase (Negative) Urine Mucus (None) /hpf RSV (PCR) (Not Detectd) 08/04/24 Range/Units 11:30 WBC (3.8-10.6) k/uL MCHC (31.0-37.0) g/dL Neutrophils # (1.3-7.7) k/uL Lymphocytes # (1.0-4.8) k/uL Monocytes # (0-1.0) k/uL Sodium (137-145) mmol/L Potassium (3.5-5.1) mmol/L Chloride (98-107) mmol/L Carbon Dioxide (22-30) mmol/L BUN (7-17) mg/dL Creatinine (0.52-1.04) mg/dL Glucose (74-99) mg/dL POC Glucose (mg/dL) (70-110) mg/dL Calcium (8.4-10.2) mg/dL Magnesium (1.6-2.3) mg/dL Total Protein (6.3-8.2) g/dL Albumin (3.5-5.0) g/dL Urine pH 8.5 H (5.0-8.0) Urine Protein Trace H (Negative) Urine Glucose (UA) 4+ H (Negative) Urine Ketones 1+ H (Negative) Ur Leukocyte Esterase Moderate H (Negative) Urine Mucus Rare H (None) /hpf RSV (PCR) (Not Detectd) Assessment and Plan (1) Leukocytosis Current Visit: Yes Status: Acute Code(s): D72.829 - ELEVATED WHITE BLOOD CELL COUNT, UNSPECIFIED SNOMED Code(s): 460580204 (2) RSV (acute bronchiolitis due to respiratory syncytial virus) Current Visit: Yes Status: Acute Code(s): J21.0 - ACUTE BRONCHIOLITIS DUE TO RESPIRATORY SYNCYTIAL VIRUS SNOMED Code(s): 236431178 Plan: 1patient presented to hospital with generalized weakness fever and chills has been diagnosed with RSV chest x-ray is mostly pulmonary vascular congestion CT abdominal pelvis did not show any acute intra-abdominal process and UA was not significantly positive 2-patient did have bilateral stage II gluteal pressure ulcer but no evidence of any cellulitis 3-treatment for RSV is mostly supportive 4-check inflammatory markers We will follow on clinical condition and cultures to further adjust medication if needed Thank you for this consultation we will follow the patient along with you Dictation was produced using [employer] dictation software. please excuse any grammatical, word or spelling errors. Time with Patient: Greater than 30
--- NOTE | 2024-08-05 23:52 | P.PN ---
Subjective Progress Note Date: 08/05/24 Principal diagnosis: Reason for follow-up is RSV and MRSA bacteremia Patient is a 84-year-old female with a past medical history significant for Coronary Artery Disease (CAD), Heart Failure, Dementia, Diabetes Mellitus, Hypertension, Myocardial Infarction ([place]), Pneumonia, Vascular Disorder coming to the ER concerning for generalized weakness fever and chills, patient tested positive for RSV did have a chest x-ray pulmonary vascular congestion cardiomegaly subsequently blood cultures came back positive with MRSA. On today's evaluation that is 08/05/2024,the patient denies any fever or any chills, patient is breathing comfortably on 2 L nasal oxygen, the patient denies chest pain breathing slightly comfortably did have a cough moderate intensity but not bring up any sputum some nausea but no vomiting no abdominal pain no diarrhea. The patient white count is down to 24.42 creatinine is 1.2 electrolytes have been normal blood culture with MRSA Objective - Vital Signs Vital signs: Vital Signs Temp 97.5 F L 08/05/24 07:31 Pulse 63 08/05/24 07:31 Resp 18 08/05/24 07:31 BP 111/60 08/05/24 07:31 Pulse Ox 93 L 08/05/24 07:31 FiO2 Intake & Output 08/04/24 08/05/24 08/05/24 18:59 06:59 18:59 Intake Total 967 Output Total 400 Balance 567 Weight 70.5 kg Intake: Oral 967 Output: Urine 400 Other: Voiding Method External Catheter - Exam GENERAL DESCRIPTION: An elderly female lying in bed in no distress RESPIRATORY SYSTEM: Unlabored breathing , coarse breath sounds bilaterally HEART: S1 S2 regular rate and rhythm , ABDOMEN: Soft , no tenderness Patient did have a stage II pressure ulcer bilateral gluteal area but no cellulitis - Labs CBC & Chem 7: 08/05/24 03:21 08/05/24 03:21 Labs: Abnormal Lab Results - Last 24 Hours (Table) 08/04/24 08/04/24 08/04/24 Range/Units 10:00 10:00 16:40 WBC (4.50-10.00) X 10*3/uL RBC (4.10-5.20) X 10*6/uL Hgb (12.0-15.0) g/dL Hct (37.2-46.3) % Immature Gran # (0.00-0.04) X 10*3/uL Neutrophils # (1.80-7.70) X 10*3/uL Lymphocytes # (0.90-5.00) X 10*3/uL Eosinophils # (0.04-0.35) X 10*3/uL Carbon Dioxide (21.6-31.8) mmol/L Anion Gap (4.00-12.00) mmol/L BUN (9.0-27.0) mg/dL Est GFR (CKD-EPI) (>=60) BUN/Creatinine Ratio (12.00-20.00) Ratio Glucose (70-110) mg/dL POC Glucose (mg/dL) 220 H (70-110) mg/dL Osmolality 316 H (275-295) mOsm/kg Procalcitonin 23.20 H (0.02-0.50) ng/mL 08/04/24 08/05/24 08/05/24 Range/Units 20:47 03:21 03:21 WBC 24.42 H (4.50-10.00) X 10*3/uL RBC 3.66 L (4.10-5.20) X 10*6/uL Hgb 11.4 L (12.0-15.0) g/dL Hct 35.5 L (37.2-46.3) % Immature Gran # 0.19 H (0.00-0.04) X 10*3/uL Neutrophils # 23.05 H (1.80-7.70) X 10*3/uL Lymphocytes # 0.49 L (0.90-5.00) X 10*3/uL Eosinophils # 0 L (0.04-0.35) X 10*3/uL Carbon Dioxide 20.1 L (21.6-31.8) mmol/L Anion Gap 14.90 H (4.00-12.00) mmol/L BUN 60.0 H (9.0-27.0) mg/dL Est GFR (CKD-EPI) 45 L (>=60) BUN/Creatinine Ratio 50.00 H (12.00-20.00) Ratio Glucose 215 H (70-110) mg/dL POC Glucose (mg/dL) 199 H (70-110) mg/dL Osmolality (275-295) mOsm/kg Procalcitonin (0.02-0.50) ng/mL 08/05/24 08/05/24 Range/Units 06:30 11:59 WBC (4.50-10.00) X 10*3/uL RBC (4.10-5.20) X 10*6/uL Hgb (12.0-15.0) g/dL Hct (37.2-46.3) % Immature Gran # (0.00-0.04) X 10*3/uL Neutrophils # (1.80-7.70) X 10*3/uL Lymphocytes # (0.90-5.00) X 10*3/uL Eosinophils # (0.04-0.35) X 10*3/uL Carbon Dioxide (21.6-31.8) mmol/L Anion Gap (4.00-12.00) mmol/L BUN (9.0-27.0) mg/dL Est GFR (CKD-EPI) (>=60) BUN/Creatinine Ratio (12.00-20.00) Ratio Glucose (70-110) mg/dL POC Glucose (mg/dL) 197 H 405 H (70-110) mg/dL Osmolality (275-295) mOsm/kg Procalcitonin (0.02-0.50) ng/mL Microbiology - Last 24 Hours (Table) 08/04/24 10:00 Blood Culture Gram Stain - Preliminary Blood Blood Culture - Preliminary Molecular ID Assessment and Plan (1) Leukocytosis Current Visit: Yes Status: Acute Code(s): D72.829 - ELEVATED WHITE BLOOD CELL COUNT, UNSPECIFIED SNOMED Code(s): 814055448 (2) RSV (acute bronchiolitis due to respiratory syncytial virus) Current Visit: Yes Status: Acute Code(s): J21.0 - ACUTE BRONCHIOLITIS DUE TO RESPIRATORY SYNCYTIAL VIRUS SNOMED Code(s): 176821417 (3) MRSA bacteremia Current Visit: Yes Status: Acute Code(s): R78.81 - BACTEREMIA; B95.62 - METHICILLIN RESIS STAPH INFCT CAUSING DISEASES CLASSD ELSR SNOMED Code(s): 39311492235089980 Plan: 1patient presented to hospital with generalized weakness fever and chills has been diagnosed with RSV chest x-ray is mostly pulmonary vascular congestion CT abdominal pelvis did not show any acute intra-abdominal process and UA was not significantly positive 2-patient did have bilateral stage II gluteal pressure ulcer but no evidence of any cellulitis 3-patient now with a positive blood culture with MRSA source questionably pulmon dawn 4-we will try to obtain sputum for Gram stain culture blood cultures will be repeated if the patient has persistent bacteremia at that point will benefit from SILVIANO to rule out endovascular source 5-for now continue with the vancomycin pharmacy to dose Dictation was produced using [employer] dictation software. please excuse any grammatical, word or spelling errors. Time with Patient: Less than 30
[2024-08-06 06:22] LABS: Glucose,Whole Blood 290 mg/dL (70-110)
[2024-08-06 06:38] LABS: African American GFR (CKD) 52 (>60 ml/min/1.73 sqM); Anion Gap 11 mmol/L; Blood Urea Nitrogen 69 mg/dL (7-17); Calcium 8.7 mg/dL (8.4-10.2); Carbon Dioxide 19 mmol/L (22-30); Chloride 105 mmol/L (98-107); Glucose 219 mg/dL (74-99); Non-African American GFR(CKD) 45 (>60 ml/min/1.73 sqM); Potassium 4.8 mmol/L (3.5-5.1); Sodium 135 mmol/L (137-145)
[2024-08-06 06:57] LABS: C Reactive Protein 20.1 mg/dL (<1.0)
[2024-08-06] MEDS ORDERED: VANCOMYCIN IV PER PHARMACY 1 EACH MISC MISCELLANE PRN (08:13)
[2024-08-06 08:52] LABS: Basophils # (A) 0.03 X 10*3/uL (0.00-0.10); Basophils % (A) 0.2 %; Eosinophils # (A) 0.01 X 10*3/uL (0.04-0.35); Eosinophils % (A) 0.1 %; HCT 33.4 % (37.2-46.3); HGB 10.9 g/dL (12.0-15.0); Lymphocytes % (A) 2.2 %; MCH 31.2 pg (27.0-32.0); MCHC 32.6 g/dL (32.0-37.0); MCV 95.7 FL (80.0-97.0); Mean Platelet Volume 11.3 FL (9.5-12.2); Monocytes # (A) 0.75 X 10*3/uL (0.20-1.00); Monocytes % (A) 4.1 %; NRBC Per 100 WBC 0 X 10*3/uL (0.00-0.01); Neutrophils # (A) 16.78 X 10*3/uL (1.80-7.70); Neutrophils % (A) 92.7 %; Platelet Count 233 X 10*3/uL (140-440); RBC 3.49 X 10*6/uL (4.10-5.20); RDW 14.3 % (11.5-14.5); WBC 18.09 X 10*3/uL (4.50-10.00)
[2024-08-06] MEDS: ENOXAPARIN 30 MG/0.3 ML SYRINGE SQ SCH (09:10)
[2024-08-06] MEDS: FUROSEMIDE 40 MG TAB PO SCH (09:10)
[2024-08-06 09:15] LABS: Erythrocyte Sedimentation Rate 86 mm/Hr (0-30)
[2024-08-06] MEDS: VANCOMYCIN 1,250 MG in SODIUM CHLORIDE 0.9% 250 ML IVPB ONE (09:41)
--- NOTE | 2024-08-06 10:27 | P.PN ---
Subjective Progress Note Date: 08/06/24 This is an 84-year-old female patient of Dr. Metzger with past medical history of diabetes, hypertension, hyperlipidemia, coronary artery disease status post CABG, ischemic cardiomyopathy status post biventricular ICD. We have been asked to evaluate the patient for CHF. CABG was greater than 10 years ago and took place in [place]. Patient was brought into the emergency center due to abnormal lab work and right lower chest pain that been going on for 10 days. Patient also complains of generalized weakness, fever and chills and cough. Patient had pain in the right lower ribs along with a cough. Patient tested positive for RSV. Patient is currently residing at [facility]. Blood pressure 126/50, heart rate 89, pulse ox 99% on 2 L nasal cannula. Patient was last seen in the office on 04/14/2024 and at that time she had stable dyspnea on exertion and edema and lab work to be obtained and follow-up in 6 months. -EKG: Paced rhythm. -Chest x-ray: Cardiomegaly and mild pulmonary vascular congestion. -CT abdomen pelvis without contrast revealed no acute process. -Laboratory studies: WBC 13.9, hemoglobin 11.9, platelet count 236. Sodium 131, potassium 5.2, BUN 78 creatinine 1.11. proBNP 9600. RSV detected. -Home cardiac medications: Aspirin 81 mg daily, atorvastatin 40 mg at bedtime, Coreg 6.25 mg twice daily, Jardiance 10 mg daily, Lasix 20 mg daily, isosorbide 30 mg daily, magnesium oxide 400 mg daily, Entresto 24-26 mg 1 tablet twice daily, spironolactone 12.5 mg daily. -Cardiac catheterization performed 10/05/2020 revealed EF 37%, 100% proximal LAD, 60% mid circumflex, 100% proximal OM2, 50% mid RCA, 100% distal RCA, 3 patent grafts, patent ORTEGA to LAD, patent VG to PDA and patent VG to OM 2. -Cardiovascular surgery with three-vessel CABG 2011: ORTEGA to LAD, VG to OM 2, VG to PDA. -Echocardiogram performed 04/01/2024 in the office revealed EF 25 to 30%, moderate aortic regurgitation, severe mitral regurgitation, moderate tricuspid regurgitation, PASP 38 mmHg, moderate pulmonic regurgitation. 08/05 [facility]. Yesterday, we started the patient on IV Lasix 20 mg twice daily. Blood pressure 111/60, heart rate 63, pulse ox 93% on 2 L nasal cannula. Repeat blood work reveals WBC 24.4, hemoglobin 11.4, sodium 139, potassium 4.8, BUN 60 creatinine 1.2. Blood culture is reported molecular ID. Patient has been started on ceftriaxone. The consult was added for ID. Attending is requesting SILVIANO which we will hold off on until patient is evaluated by infectious disease. Echocardiogram reveals EF of 30 to 35% with mild to moderate mitral regurgitation, moderate aortic regurgitation and mild to moderate tricuspid regurgitation with moderate pulmonary hypertension. No pericardial effusion. Severe hypokinesia involving the anterior septal portion as well as apical septal portion. CT of the abdomen pelvis revealed no acute process. 08/06 Patient seen and examined. No complaints of chest pain. Patient remains in isolation for RSV. She has been afebrile, heart rate in the 70s, blood pressure 131/72, pulse ox 95% on 2 L nasal cannula. Repeat blood work reveals WBC 18, hemoglobin 10.9, potassium 4.8, BUN 69 creatinine 1.14. A repeat blood culture was obtained this morning. Yesterday we transition IV Lasix to oral 40 mg in the morning and 20 mg in the evening. Physical examination: Gen: This is an 84-year-old female in no acute distress VS: reviewed HEENT: Head is atraumatic, normocephalic. Pupils equal, round. Sclerae is anicteric. NECK: Supple. No JVD. LUNGS: Diminished bilaterally. No intercostal retractions. HEART: Regular rate and rhythm. Systolic murmur. ABDOMEN: Soft No tenderness. EXTREMITIES: No pedal edema. No calf tenderness. Assessment: RSV Acute on chronic systolic heart failure Coronary artery disease with previous CABG three-vessel in 2011 Ischemic cardiomyopathy with known EF of 25 to 30% status post biventricular ICD Hypertension Hyperlipidemia Diabetes Stage II pressure ulcers to the buttocks Plan: Continue patient's home cardiac medications Continue Lasix oral 40 mg in the morning and 20 mg in the evening Monitor blood cultures, repeat drawn on 08/06 Tentatively plan for SILVIANO on Saturday with Dr. Metzger Further recommendations to follow based upon clinical course Nurse practitioner note has been reviewed, I agree with documented findings and plan of care. Patient was seen and examined. Objective - Vital Signs Vital signs: Vital Signs Temp 98.4 F 08/06/24 00:56 Pulse 79 08/06/24 00:56 Resp 18 08/06/24 00:56 BP 113/42 08/06/24 00:56 Pulse Ox 97 08/06/24 08:37 FiO2 Intake & Output 08/05/24 08/06/24 08/06/24 18:59 06:59 18:59 Intake Total 1442 Output Total 400 Balance 1042 Weight 70.5 kg Intake: Oral 1442 Output: Urine 400 Other: Voiding Method External Catheter # Voids 1 1 # Bowel Movements 1 1 - Labs CBC & Chem 7: 08/06/24 05:28 08/06/24 05:28 Labs: Abnormal Lab Results - Last 24 Hours (Table) 08/05/24 08/05/24 08/05/24 Range/Units 03:21 03:21 11:59 Immature Gran # 0.19 H (0.00-0.04) X 10*3/uL Neutrophils # 23.05 H (1.80-7.70) X 10*3/uL Lymphocytes # 0.49 L (0.90-5.00) X 10*3/uL Eosinophils # 0 L (0.04-0.35) X 10*3/uL Sodium (137-145) mmol/L Carbon Dioxide 20.1 L (21.6-31.8) mmol/L Anion Gap 14.90 H (4.00-12.00) mmol/L BUN 60.0 H (9.0-27.0) mg/dL Creatinine (0.52-1.04) mg/dL Est GFR (CKD-EPI) 45 L (>=60) BUN/Creatinine Ratio 50.00 H (12.00-20.00) Ratio Glucose 215 H (70-110) mg/dL POC Glucose (mg/dL) 405 H (70-110) mg/dL C-Reactive Protein (<1.0) mg/dL 08/05/24 08/05/24 08/06/24 Range/Units 17:08 20:33 05:28 Immature Gran # (0.00-0.04) X 10*3/uL Neutrophils # (1.80-7.70) X 10*3/uL Lymphocytes # (0.90-5.00) X 10*3/uL Eosinophils # (0.04-0.35) X 10*3/uL Sodium 135 L (137-145) mmol/L Carbon Dioxide 19 L (21.6-31.8) mmol/L Anion Gap (4.00-12.00) mmol/L BUN 69 H (9.0-27.0) mg/dL Creatinine 1.14 H (0.52-1.04) mg/dL Est GFR (CKD-EPI) (>=60) BUN/Creatinine Ratio (12.00-20.00) Ratio Glucose 219 H (70-110) mg/dL POC Glucose (mg/dL) 230 H 275 H (70-110) mg/dL C-Reactive Protein 20.1 H (<1.0) mg/dL 08/06/24 Range/Units 06:21 Immature Gran # (0.00-0.04) X 10*3/uL Neutrophils # (1.80-7.70) X 10*3/uL Lymphocytes # (0.90-5.00) X 10*3/uL Eosinophils # (0.04-0.35) X 10*3/uL Sodium (137-145) mmol/L Carbon Dioxide (21.6-31.8) mmol/L Anion Gap (4.00-12.00) mmol/L BUN (9.0-27.0) mg/dL Creatinine (0.52-1.04) mg/dL Est GFR (CKD-EPI) (>=60) BUN/Creatinine Ratio (12.00-20.00) Ratio Glucose (70-110) mg/dL POC Glucose (mg/dL) 290 H (70-110) mg/dL C-Reactive Protein (<1.0) mg/dL
[2024-08-06] MEDS ORDERED: INSULIN LISPRO (HumaLOG) 100 UNIT/ML 10 mL VL SQ SCH (11:00)
[2024-08-06 12:26] LABS: Glucose,Whole Blood 267 mg/dL (70-110)
[2024-08-06] MEDS: NON FORMULARY DRUG (Patiromer Calcium Sorbitex [Veltassa] 8.4 GM Packet) PO SCH (12:26)
--- NOTE | 2024-08-06 12:33 | P.PN ---
Subjective Progress Note Date: 08/06/24 Hospital Course: Patient is a 84-year-old female with history of CAD status post CABG, heart failure, dementia, type 2 diabetes, hypertension, hyperlipidemia presents to the ER with complaint of fever, chills, generalized weakness and abnormal lab work. Patient states that she is living at [facility] and since last week she has been endorsing generalized weakness associated with fever, chills and nonproductive cough. Patient reports sick contact at [facility]. Patient also reports swelling in her legs, orthopnea, PND, pain in her right flank, urgency and frequency of urination. Patient denies any chest pain, shortness of breath, recent hospitalization, recent travel. Patient reports that she had a CABG done about 5 years ago and follows cardiology on a regular basis. Patient reports no history of smoking, drinking alcohol or use of illicit drugs. Initial lab work in the ER shows WBC 19.8, hemoglobin 13.0, platelet count 331, neutrophil count 18.6, sodium 131, potassium 5.6, BUN 77, creatinine 1.04, glucose 287, calcium 10.5, NT proBNP 9600. Subsequent lab work showed WBC 32.9, neutrophil count 31.1, sodium 131, potassium 5.2, bicarb 21, BUN 78, creatinine 1.11, glucose 260, magnesium 2.5. Urinalysis shows glycosuria, ketonuria, leukocyte esterase and negative urine nitrite. Chest x-ray in the ER shows cardiomegaly, pulmonary vascular addition to bilateral pleural effusions. Echocardiogram shows ischemic cardiomyopathy with ejection fraction of about 325% with mild to moderate MR, moderate AR and mild to moderate TR with moderate pulmonary hypertension. There is a severe hypokinesia involving the anteroseptal portion as well as apical septal portion. CT abdomen and pelvis is unable to exclude pyelonephritis otherwise there is no acute process noted. Vital signs on arrival shows temperature 97.9 F, pulse rate 92, respiratory rate 16, blood pressure 148/72, oxygen saturation 98% on room air. Subsequent vital signs show temperature 98.8 F, pulse rate 87, respirate 18, blood pressure 125/76, oxygen saturation 99% 2 L via nasal cannula. Subjective: Patient seen and examined at the bedside. No acute events overnight. Patient continue to experience right flank pain. Denies any nausea, vomiting, fever or chills. All Systems reviewed and pertinent positives and negatives noted in HPI, all other symptoms are negative Objective: Physical examination: Vital signs reviewed General: non toxic, no distress, appears at stated age, overweight Derm: There are 2 stage II ulcers on the left buttock and 1 stage II ulcer on the right buttock, bilateral groin rash, nonpurulent ulcerated lesion on left lower extremity, Head: atraumatic, normocephalic, symmetric Eyes: EOMI, no lid lag, anicteric sclera, pupils equal round reactive to light ENT: Nose and ears atraumatic Neck: No cervical lymphadenopathy, trachea midline, supple Mouth: no lip lesion, mucus membranes moist Cardiovascular: S1S2 reg, no murmur, positive dorsalis pedis pulse bilateral, bilateral 1+ pitting edema LE Lungs: Diffuse bilateral wheezing with bibasilar crackles noted Abdominal: soft, nontender to palpation, no guarding, right CVA tenderness Ext: muscle strength 5 out of 5 in all 4 extremities grossly, no gross muscle atrophy, no contractures, Neuro: CN II-XI grossly intact, no gross focal neuro deficits Psych: Alert, oriented, appropriate affect Data reviewed today: Pertinent Labs: WBC 18.09, hemoglobin 10.9, hematocrit 33.4, platelet count 233, sodium 135, potassium 4.8, chloride 105, bicarb 19, BUN 69, creatinine 1.14, glucose 219, Procalcitonin 16.81 Pertinent imaging: No new imaging today. Assessment and Plan: Active problems: #CHF exacerbation #Acute hypoxemic respiratory failure secondary to CHF exacerbation #Ischemic cardiomyopathy with ejection fraction of 30 to 35% status post biventricular ICD #community-acquired pneumonia #RSV positive (acute tracheobronchitis) #MRSA bacteremia Oxygen therapy as needed Cardiology on board, appreciate recs Echocardiogram shows LVEF 30 to 35% GDMT: Entresto 24-26 mg OD, Aldactone 12.5 mg OD, Coreg 6.25 mg twice daily, Farxiga 5 mg p.o. daily Discontinue IV Lasix; continue with Lasix 40 mg in a.m. and 20 mg p.o. p.m. Fluid restrictions, I's and O's and daily weights Preliminary blood culture reports show MRSA infection Initiate IV vancomycin per pharmacy dosing, monitor renal function Continue with IV Rocephin 2 g IVPB every 24-hour and azithromycin 500 mg p.o. daily (day 3) Procalcitonin positive, urine Legionella antigen negative, sputum culture pending DuoNebs as scheduled and [id number] Order SILVIANO to rule out infective endocarditis, tentatively scheduled for Saturday with Dr. Metzger #Right CVA tenderness secondary to right pyelonephritis #Stage II pressure ulcers on buttocks #Left lower extremity venous stasis ulcer #Bilateral groin rash CT abdomen and pelvis is unable to exclude pyelonephritis otherwise there is no acute process noted. Urinalysis positive for leukocyte esterase IVPB vancomycin and ceftriaxone as above Mycostatin powder and Bactroban ointment Urine culture Infectious disease on board, appreciate recs Wound care on board, appreciate recs Repeat blood culture ordered on 08/06/2024 #Hypervolemic hyponatremia, resolved, #Hyperkalemia Fluid restriction 1500 mL Monitor BMP #Type 2 diabetes mellitus Accu-Cheks and insulin scale insulin Lantus 15 units SQ at bedtime Humalog 5 units subcu 3 times daily with meals Monitor for hypoglycemia #Hypermagnesemia Continue monitor Hold magnesium oxide 400 mg p.o. daily Chronic: Hypertension: Resume Entresto Hyperlipidemia: Resume atorvastatin 40 mg GERD: Resume Protonix 40 mg DVT prophylaxis: Lovenox 40 mg subcu daily GI prophylaxis: Protonix 40 mg F: None E: Replete as needed N: Heart healthy diet A: Ambulatory at baseline The patient is admitted with an anticipated more than than 2 midnight stay for evaluation of CHF exacerbation, suspected CAP, pyelonephritis CODE STATUS: Full code Discussed with: Patient Anticipated discharge place: Pending clinical course Dictation was produced using [employer] dictation software. Please excuse any grammatical, word or spelling errors. Attestation I have seen and examined this patient with my resident , discussed the same with the resident/PETER, and agree with the dictator's assessment and plan as written GENERAL: The patient is alert and oriented x3, not in any acute distress. Ill looking HEENT: Pupils are round and equally reacting to light. EOMI. No scleral icterus. No conjunctival pallor. Normocephalic, atraumatic. No pharyngeal erythema. No thyromegaly. CARDIOVASCULAR: S1 and S2 present. No murmurs, rubs, or gallops. PULMONARY: Diminished breath sound the bases, crackles audible ABDOMEN: Soft, nontender, nondistended, normoactive bowel sounds. No palpable organomegaly. MUSCULOSKELETAL: No joint swelling or deformity. EXTREMITIES: No cyanosis, clubbing, or pedal edema. NEUROLOGICAL: Gross neurological examination did not reveal any focal deficits. SKIN: No rashes. Dr. Leo acuña Objective - Vital Signs Vital signs: Vital Signs Temp 97.6 F 08/06/24 07:15 Pulse 76 08/06/24 07:15 Resp 18 08/06/24 07:15 BP 131/72 08/06/24 07:15 Pulse Ox 97 08/06/24 08:37 FiO2 Intake & Output 08/05/24 08/06/24 08/06/24 18:59 06:59 18:59 Intake Total 1442 Output Total 400 Balance 1042 Weight 70.5 kg Intake: Oral 1442 Output: Urine 400 Other: Voiding Method External Catheter # Voids 1 1 # Bowel Movements 1 1 - Labs CBC & Chem 7: 08/06/24 05:28 08/07/24 05:30 Labs: Abnormal Lab Results - Last 24 Hours (Table) 08/05/24 08/05/24 08/06/24 Range/Units 17:08 20:33 05:28 WBC (4.50-10.00) X 10*3/uL RBC (4.10-5.20) X 10*6/uL Hgb (12.0-15.0) g/dL Hct (37.2-46.3) % Immature Gran # (0.00-0.04) X 10*3/uL Neutrophils # (1.80-7.70) X 10*3/uL Lymphocytes # (0.90-5.00) X 10*3/uL Eosinophils # (0.04-0.35) X 10*3/uL ESR (0-30) mm/Hr Sodium 135 L (137-145) mmol/L Carbon Dioxide 19 L (22-30) mmol/L BUN 69 H (7-17) mg/dL Creatinine 1.14 H (0.52-1.04) mg/dL Glucose 219 H (74-99) mg/dL POC Glucose (mg/dL) 230 H 275 H (70-110) mg/dL C-Reactive Protein 20.1 H (<1.0) mg/dL Procalcitonin (0.02-0.50) ng/mL 08/06/24 08/06/24 08/06/24 Range/Units 05:28 05:28 06:21 WBC 18.09 H (4.50-10.00) X 10*3/uL RBC 3.49 L (4.10-5.20) X 10*6/uL Hgb 10.9 L (12.0-15.0) g/dL Hct 33.4 L (37.2-46.3) % Immature Gran # 0.12 H (0.00-0.04) X 10*3/uL Neutrophils # 16.78 H (1.80-7.70) X 10*3/uL Lymphocytes # 0.40 L (0.90-5.00) X 10*3/uL Eosinophils # 0.01 L (0.04-0.35) X 10*3/uL ESR 86 H (0-30) mm/Hr Sodium (137-145) mmol/L Carbon Dioxide (22-30) mmol/L BUN (7-17) mg/dL Creatinine (0.52-1.04) mg/dL Glucose (74-99) mg/dL POC Glucose (mg/dL) 290 H (70-110) mg/dL C-Reactive Protein (<1.0) mg/dL Procalcitonin 16.80 H (0.02-0.50) ng/mL Microbiology - Last 24 Hours (Table) 08/04/24 10:00 Blood Culture Gram Stain - Preliminary Blood Blood Culture - Preliminary Presumptive MRSA Molecular ID
[2024-08-06] MEDS: INSULIN LISPRO (HumaLOG) 100 UNIT/ML 10 mL VL SQ SCH (12:35)
--- NOTE | 2024-08-06 15:46 | P.PN ---
Subjective Progress Note Date: 08/06/24 Principal diagnosis: Reason for follow-up is RSV and MRSA bacteremia Patient is a 84-year-old female with a past medical history significant for Coronary Artery Disease (CAD), Heart Failure, Dementia, Diabetes Mellitus, Hypertension, Myocardial Infarction (MT), Pneumonia, Vascular Disorder coming to the ER concerning for generalized weakness fever and chills, patient tested positive for RSV did have a chest x-ray pulmonary vascular congestion cardiomegaly subsequently blood cultures came back positive with MRSA. On today's evaluation that is 08/06/2024,the patient remains to be afebrile, patient is on room air not requiring supplemental oxygen and denies any sh ortness of breath no chest pain or any worsening cough.Patient denies having any nausea or vomiting, no abdominal pain and no diarrhea. Patient white count is down to 18.09, creatinine is 1.14 Pro-Thiago's is trending down blood culture repeat pending Objective - Vital Signs Vital signs: Vital Signs Temp 97.6 F 08/06/24 07:15 Pulse 76 08/06/24 07:15 Resp 18 08/06/24 07:15 BP 131/72 08/06/24 07:15 Pulse Ox 97 08/06/24 08:37 FiO2 Intake & Output 08/05/24 08/06/24 08/06/24 18:59 06:59 18:59 Intake Total 1442 Output Total 400 Balance 1042 Weight 70.5 kg Intake: Oral 1442 Output: Urine 400 Other: Voiding Method External Catheter # Voids 1 1 # Bowel Movements 1 1 - Exam GENERAL DESCRIPTION: An elderly female lying in bed in no distress RESPIRATORY SYSTEM: Unlabored breathing , coarse breath sounds bilaterally HEART: S1 S2 regular rate and rhythm , ABDOMEN: Soft , no tenderness Patient did have a stage II pressure ulcer bilateral gluteal area but no cellulitis - Labs CBC & Chem 7: 08/06/24 05:28 08/06/24 05:28 Labs: Abnormal Lab Results - Last 24 Hours (Table) 08/05/24 08/05/24 08/06/24 Range/Units 17:08 20:33 05:28 WBC (4.50-10.00) X 10*3/uL RBC (4.10-5.20) X 10*6/uL Hgb (12.0-15.0) g/dL Hct (37.2-46.3) % Immature Gran # (0.00-0.04) X 10*3/uL Neutrophils # (1.80-7.70) X 10*3/uL Lymphocytes # (0.90-5.00) X 10*3/uL Eosinophils # (0.04-0.35) X 10*3/uL ESR (0-30) mm/Hr Sodium 135 L (137-145) mmol/L Carbon Dioxide 19 L (22-30) mmol/L BUN 69 H (7-17) mg/dL Creatinine 1.14 H (0.52-1.04) mg/dL Glucose 219 H (74-99) mg/dL POC Glucose (mg/dL) 230 H 275 H (70-110) mg/dL C-Reactive Protein 20.1 H (<1.0) mg/dL Procalcitonin (0.02-0.50) ng/mL 08/06/24 08/06/24 08/06/24 Range/Units 05:28 05:28 06:21 WBC 18.09 H (4.50-10.00) X 10*3/uL RBC 3.49 L (4.10-5.20) X 10*6/uL Hgb 10.9 L (12.0-15.0) g/dL Hct 33.4 L (37.2-46.3) % Immature Gran # 0.12 H (0.00-0.04) X 10*3/uL Neutrophils # 16.78 H (1.80-7.70) X 10*3/uL Lymphocytes # 0.40 L (0.90-5.00) X 10*3/uL Eosinophils # 0.01 L (0.04-0.35) X 10*3/uL ESR 86 H (0-30) mm/Hr Sodium (137-145) mmol/L Carbon Dioxide (22-30) mmol/L BUN (7-17) mg/dL Creatinine (0.52-1.04) mg/dL Glucose (74-99) mg/dL POC Glucose (mg/dL) 290 H (70-110) mg/dL C-Reactive Protein (<1.0) mg/dL Procalcitonin 16.80 H (0.02-0.50) ng/mL 08/06/24 Range/Units 12:24 WBC (4.50-10.00) X 10*3/uL RBC (4.10-5.20) X 10*6/uL Hgb (12.0-15.0) g/dL Hct (37.2-46.3) % Immature Gran # (0.00-0.04) X 10*3/uL Neutrophils # (1.80-7.70) X 10*3/uL Lymphocytes # (0.90-5.00) X 10*3/uL Eosinophils # (0.04-0.35) X 10*3/uL ESR (0-30) mm/Hr Sodium (137-145) mmol/L Carbon Dioxide (22-30) mmol/L BUN (7-17) mg/dL Creatinine (0.52-1.04) mg/dL Glucose (74-99) mg/dL POC Glucose (mg/dL) 267 H (70-110) mg/dL C-Reactive Protein (<1.0) mg/dL Procalcitonin (0.02-0.50) ng/mL Microbiology - Last 24 Hours (Table) 08/04/24 10:00 Blood Culture Gram Stain - Preliminary Blood Blood Culture - Preliminary Presumptive MRSA Molecular ID Assessment and Plan (1) Leukocytosis Current Visit: Yes Status: Acute Code(s): D72.829 - ELEVATED WHITE BLOOD CELL COUNT, UNSPECIFIED SNOMED Code(s): 504999397 (2) RSV (acute bronchiolitis due to respiratory syncytial virus) Current Visit: Yes Status: Acute Code(s): J21.0 - ACUTE BRONCHIOLITIS DUE TO RESPIRATORY SYNCYTIAL VIRUS SNOMED Code(s): 831898116 (3) MRSA bacteremia Current Visit: Yes Status: Acute Code(s): R78.81 - BACTEREMIA; B95.62 - ME THICILLIN RESIS STAPH INFCT CAUSING DISEASES CLASSD ELSWHR SNOMED Code(s): 64781658238927834 Plan: 1patient presented to hospital with generalized weakness fever and chills has been diagnosed with RSV chest x-ray is mostly pulmonary vascular congestion CT abdominal pelvis did not show any acute intra-abdominal process and UA was not significantly positive 2-patient did have bilateral stage II gluteal pressure ulcer but no evidence of any cellulitis 3-patient with a positive blood culture with MRSA source likely pulmonary 4-blood cultures has been repeated to document clearance of bacteremia 5-for now continue with the vancomycin pharmacy to dose and discontinue Rocephin Dictation was produced using [employer] software. please excuse any grammatical, word or spelling errors. Time with Patient: Less than 30
[2024-08-06 16:57] LABS: Glucose,Whole Blood 274 mg/dL (70-110)
[2024-08-06 20:55] LABS: Glucose,Whole Blood 309 mg/dL (70-110)
[2024-08-07 06:35] LABS: Glucose,Whole Blood 186 mg/dL (70-110)
[2024-08-07 06:48] LABS: African American GFR (CKD) 67 (>60 ml/min/1.73 sqM); Anion Gap 8 mmol/L; Blood Urea Nitrogen 60 mg/dL (7-17); Calcium 8.4 mg/dL (8.4-10.2); Carbon Dioxide 23 mmol/L (22-30); Chloride 107 mmol/L (98-107); Glucose 151 mg/dL (74-99); Non-African American GFR(CKD) 58 (>60 ml/min/1.73 sqM); Potassium 5.3 mmol/L (3.5-5.1); Sodium 138 mmol/L (137-145)
[2024-08-07] MEDS: SODIUM ZIRCONIUM CYCLOSILICATE 10 GM PACKET PO ONE (08:18)
[2024-08-07] MEDS: VANCOMYCIN 1,250 MG in SODIUM CHLORIDE 0.9% 250 ML IVPB ONE (09:13)
--- NOTE | 2024-08-07 09:42 | P.PN ---
Subjective Progress Note Date: 08/07/24 This is an 84-year-old female patient of Dr. Metzger with past medical history of diabetes, hypertension, hyperlipidemia, coronary artery disease status post CABG, ischemic cardiomyopathy status post biventricular ICD. We have been asked to evaluate the patient for CHF. CABG was greater than 10 years ago and took place in [place]. Patient was brought into the emergency center due to abnormal lab work and right lower chest pain that been going on for 10 days. Patient also complains of generalized weakness, fever and chills and cough. Patient had pain in the right lower ribs along with a cough. Patient tested positive for RSV. Patient is currently residing at [facility]. Blood pressure 126/50, heart rate 89, pulse ox 99% on 2 L nasal cannula. Patient was last seen in the office on 04/14/2024 and at that time she had stable dyspnea on exertion and edema and lab work to be obtained and follow-up in 6 months. -EKG: Paced rhythm. -Chest x-ray: Cardiomegaly and mild pulmonary vascular congestion. -CT abdomen pelvis without contrast revealed no acute process. -Laboratory studies: WBC 13.9, hemoglobin 11.9, platelet count 236. Sodium 131, potassium 5.2, BUN 78 creatinine 1.11. proBNP 9600. RSV detected. -Home cardiac medications: Aspirin 81 mg daily, atorvastatin 40 mg at bedtime, Coreg 6.25 mg twice daily, Jardiance 10 mg daily, Lasix 20 mg daily, isosorbide 30 mg daily, magnesium oxide 400 mg daily, Entresto 24-26 mg 1 tablet twice daily, spironolactone 12.5 mg daily. -Cardiac catheterization performed 10/05/2020 revealed EF 37%, 100% proximal LAD, 60% mid circumflex, 100% proximal OM2, 50% mid RCA, 100% distal RCA, 3 patent grafts, patent ORTEGA to LAD, patent VG to PDA and patent VG to OM 2. -Cardiovascular surgery with three-vessel CABG 2011: ORTEGA to LAD, VG to OM 2, VG to PDA. -Echocardiogram performed 04/01/2024 in the office revealed EF 25 to 30%, moderate aortic regurgitation, severe mitral regurgitation, moderate tricuspid regurgitation, PASP 38 mmHg, moderate pulmonic regurgitation. 08/05 Patient is seen and examined on the [facility] floor. Yesterday, we started the patient on IV Lasix 20 mg twice daily. Blood pressure 111/60, heart rate 63, pulse ox 93% on 2 L nasal cannula. Repeat blood work reveals WBC 24.4, hemoglobin 11.4, sodium 139, potassium 4.8, BUN 60 creatinine 1.2. Blood culture is reported molecular ID. Patient has been started on ceftriaxone. The consult was added for ID. Attending is requesting SILVIANO which we will hold off on until patient is evaluated by infectious disease. Echocardiogram reveals EF of 30 to 35% with mild to moderate mitral regurgitation, moderate aortic regurgitation and mild to moderate tricuspid regurgitation with moderate pulmonary hypertension. No pericardial effusion. Severe hypokinesia involving the anterior septal portion as well as apical septal portion. CT of the abdomen pelvis revealed no acute process. 08/06 Patient seen and examined. No complaints of chest pain. Patient remains in isolation for RSV. She has been afebrile, heart rate in the 70s, blood pressure 131/72, pulse ox 95% on 2 L nasal cannula. Repeat blood work reveals WBC 18, hemoglobin 10.9, potassium 4.8, BUN 69 creatinine 1.14. A repeat blood culture was obtained this morning. Yesterday we transition IV Lasix to oral 40 mg in the morning and 20 mg in the evening. 08/07 Patient seen and examined. Patient had a repeat blood culture that was obtained yesterday and appears to be also positive for MRSA. CT of the abdomen pelvis did not show any acute intra-abdominal process. Will plan for SILVIANO on Saturday with Dr. Metzger. Patient has been afebrile, heart rate 71, blood pressure 133/66, pulse ox 90% on room air. Repeat blood work reveals BUN 60, creatinine 0.93, potassium 5.3. CBC report is pending. Physical examination: Gen: This is an 84-year-old female in no acute distress VS: reviewed HEENT: Head is atraumatic, normocephalic. Pupils equal, round. Sclerae is anicteric. NECK: Supple. No JVD. LUNGS: Diminished bilaterally. No intercostal retractions. HEART: Regular rate and rhythm. Systolic murmur. ABDOMEN: Soft No tenderness. EXTREMITIES: No pedal edema. No calf tenderness. Assessment: RSV Acute on chronic systolic heart failure Coronary artery disease with previous CABG three-vessel in 2011 Ischemic cardiomyopathy with known EF of 25 to 30% status post biventricular ICD Hypertension Hyperlipidemia Diabetes Stage II pressure ulcers to the buttocks Plan: Continue patient's home cardiac medications Continue Lasix oral 40 mg in the morning and 20 mg in the afternoon Monitor blood cultures, repeat drawn on 08/06 Schedule patient for SILVIANO on Saturday with Dr. Metzger Further recommendations to follow based upon clinical course Nurse practitioner note has been reviewed, I agree with documented findings and plan of care. Patient was seen and examined. Objective - Vital Signs Vital signs: Vital Signs Temp 98.4 F 08/07/24 00:07 Pulse 86 08/07/24 00:07 Resp 17 08/07/24 00:07 BP 152/63 08/07/24 00:07 Pulse Ox 98 08/07/24 07:36 FiO2 Intake & Output 08/06/24 08/07/24 08/07/24 18:59 06:59 18:59 Weight 70.5 kg 70.5 kg Other: Voiding Method Diaper # Voids 3 # Bowel Movements 1 - Labs CBC & Chem 7: 08/06/24 05:28 08/07/24 05:30 Labs: Abnormal Lab Results - Last 24 Hours (Table) 08/06/24 08/06/24 08/06/24 Range/Units 05:28 05:28 12:24 ESR 86 H (0-30) mm/Hr Potassium (3.5-5.1) mmol/L BUN (7-17) mg/dL Glucose (74-99) mg/dL POC Glucose (mg/dL) 267 H (70-110) mg/dL Procalcitonin 16.80 H (0.02-0.50) ng/mL 08/06/24 08/06/24 08/07/24 Range/Units 16:55 20:54 05:30 ESR (0-30) mm/Hr Potassium 5.3 H (3.5-5.1) mmol/L BUN 60 H (7-17) mg/dL Glucose 151 H (74-99) mg/dL POC Glucose (mg/dL) 274 H 309 H (70-110) mg/dL Procalcitonin (0.02-0.50) ng/mL 08/07/24 Range/Units 06:34 ESR (0-30) mm/Hr Potassium (3.5-5.1) mmol/L BUN (7-17) mg/dL Glucose (74-99) mg/dL POC Glucose (mg/dL) 186 H (70-110) mg/dL Procalcitonin (0.02-0.50) ng/mL Microbiology - Last 24 Hours (Table) 08/06/24 05:28 Blood Culture Gram Stain - Preliminary Blood 08/04/24 10:00 Blood Culture Gram Stain - Preliminary Blood Blood Culture - Preliminary Presumptive MRSA Molecular ID
[2024-08-07] MEDS ORDERED: fentaNYL (PF) 50 MCG/ML 2 ML AMP IVP PRN (09:43)
[2024-08-07] MEDS ORDERED: MIDAZOLAM 2 MG/2 ML VIAL IV PRN (09:43)
[2024-08-07 10:11] LABS: Basophils # (A) 0.02 X 10*3/uL (0.00-0.10); Basophils % (A) 0.2 %; Eosinophils # (A) 0.05 X 10*3/uL (0.04-0.35); Eosinophils % (A) 0.4 %; HGB 10.7 g/dL (12.0-15.0); Lymphocytes # (A) 0.57 X 10*3/uL (0.90-5.00); Lymphocytes % (A) 4.8 %; MCH 30.8 pg (27.0-32.0); MCHC 31.5 g/dL (32.0-37.0); Mean Platelet Volume 11.1 FL (9.5-12.2); Monocytes # (A) 0.83 X 10*3/uL (0.20-1.00); Monocytes % (A) 7.1 %; NRBC Per 100 WBC 0 X 10*3/uL (0.00-0.01); Neutrophils # (A) 10.21 X 10*3/uL (1.80-7.70); Neutrophils % (A) 86.8 %; Platelet Count 200 X 10*3/uL (140-440); RBC 3.47 X 10*6/uL (4.10-5.20); RDW 14.3 % (11.5-14.5); WBC 11.76 X 10*3/uL (4.50-10.00)
[2024-08-07 11:10] LABS: Glucose,Whole Blood 193 mg/dL (70-110)
--- NOTE | 2024-08-07 15:23 | P.PN ---
Subjective Progress Note Date: 08/07/24 Principal diagnosis: Reason for follow-up is RSV and MRSA bacteremia Patient is a 84-year-old female with a past medical history significant for Coronary Artery Disease (CAD), Heart Failure, Dementia, Diabetes Mellitus, Hypertension, Myocardial Infarction (PA), Pneumonia, Vascular Disorder coming to the ER concerning for generalized weakness fever and chills, patient tested positive for RSV did have a chest x-ray pulmonary vascular congestion cardiomegaly subsequently blood cultures came back positive with MRSA. On today's evaluation that is 08/07/2024, the patient continues to be afebrile, the patient is on room air and breathing comfortably still some shortness of breath when she lies flat, the Pt denies having any chest pain and cough is decreased intensity, the patient denies having any abdominal pain no vomiting or any diarrhea mention feeling better. Patient white count is down to 11.76, creatinine 0.93 Vanco random is 13.9 blood cultures from 08/06/2024 also came back positive Objective - Vital Signs Vital signs: Vital Signs Temp 98.4 F 08/07/24 07:50 Pulse 71 08/07/24 07:50 Resp 18 08/07/24 07:50 BP 133/66 08/07/24 07:50 Pulse Ox 98 08/07/24 07:50 FiO2 Intake & Output 08/06/24 08/07/24 08/07/24 18:59 06:59 18:59 Weight 70.5 kg 70.5 kg Other: Voiding Method Diaper Diaper Incontinent # Voids 3 # Bowel Movements 1 - Exam GENERAL DESCRIPTION: An elderly female lying in bed in no distress RESPIRATORY SYSTEM: Unlabored breathing , coarse breath sounds bilaterally HEART: S1 S2 regular rate and rhythm , ABDOMEN: Soft , no tenderness Patient did have a stage II pressure ulcer bilateral gluteal area but no cellulitis - Labs CBC & Chem 7: 08/07/24 05:30 08/07/24 05:30 Labs: Abnormal Lab Results - Last 24 Hours (Table) 08/06/24 08/06/24 08/07/24 Range/Units 16:55 20:54 05:30 WBC (4.50-10.00) X 10*3/uL RBC (4.10-5.20) X 10*6/uL Hgb (12.0-15.0) g/dL Hct (37.2-46.3) % MCV (80.0-97.0) FL MCHC (32.0-37.0) g/dL Immature Gran # (0.00-0.04) X 10*3/uL Neutrophils # (1.80-7.70) X 10*3/uL Lymphocytes # (0.90-5.00) X 10*3/uL Potassium 5.3 H (3.5-5.1) mmol/L BUN 60 H (7-17) mg/dL Glucose 151 H (74-99) mg/dL POC Glucose (mg/dL) 274 H 309 H (70-110) mg/dL 08/07/24 08/07/24 08/07/24 Range/Units 05:30 06:34 11:09 WBC 11.76 H (4.50-10.00) X 10*3/uL RBC 3.47 L (4.10-5.20) X 10*6/uL Hgb 10.7 L (12.0-15.0) g/dL Hct 34.0 L (37.2-46.3) % MCV 98.0 H (80.0-97.0) FL MCHC 31.5 L (32.0-37.0) g/dL Immature Gran # 0.08 H (0.00-0.04) X 10*3/uL Neutrophils # 10.21 H (1.80-7.70) X 10*3/uL Lymphocytes # 0.57 L (0.90-5.00) X 10*3/uL Potassium (3.5-5.1) mmol/L BUN (7-17) mg/dL Glucose (74-99) mg/dL POC Glucose (mg/dL) 186 H 193 H (70-110) mg/dL Microbiology - Last 24 Hours (Table) 08/04/24 10:00 Blood Culture Gram Stain - Final Blood Blood Culture - Final Methicillin resist S. aureus Molecular ID 08/06/24 05:28 Blood Culture Gram Stain - Preliminary Blood Assessment and Plan (1) Leukocytosis Current Visit: Yes Status: Acute Code(s): D72.829 - ELEVATED WHITE BLOOD CELL COUNT, UNSPECIFIED SNOMED Code(s): 957990002 (2) RSV (acute bronchiolitis due to respiratory syncytial virus) Current Visit: Yes Status: Acute Code(s): J21.0 - ACUTE BRONCHIOLITIS DUE TO RESPIRATORY SYNCYTIAL VIRUS SNOMED Code(s): 018890630 (3) MRSA bacteremia Current Visit: Yes Status: Acute Code(s): R78.81 - BACTEREMIA; B95.62 - M ETHICILLIN RESIS STAPH INFCT CAUSING DISEASES CLASSD ELSWHR SNOMED Code(s): 72992255043520595 Plan: 1patient presented to hospital with generalized weakness fever and chills has been diagnosed with RSV chest x-ray is mostly pulmonary vascular congestion CT abdominal pelvis did not show any acute intra-abdominal process and UA was not significantly positive 2-patient did have bilateral stage II gluteal pressure ulcer but no evidence of any cellulitis 3-patient with a positive blood culture with MRSA source likely pulmonary 4-blood cultures repeat also came back positive concerning for possible endovascular source 5-for now continue with the vancomycin pharmacy to dose target trough of 15, with the persistent bacteremia would benefit from SILVIANO Dictation was produced using [employer] dictation software. please excuse any grammatical, word or spelling errors. Time with Patient: Less than 30
--- NOTE | 2024-08-07 16:20 | P.PN ---
Subjective Progress Note Date: 08/07/24 Hospital Course: Patient is a 84-year-old female with history of CAD status post CABG, heart failure, dementia, type 2 diabetes, hypertension, hyperlipidemia presents to the ER with complaint of fever, chills, generalized weakness and abnormal lab work. Patient states that she is living at [facility] and since last week she has been endorsing generalized weakness associated with fever, chills and nonproductive cough. Patient reports sick contact at [facility]. Patient also reports swelling in her legs, orthopnea, PND, pain in her right flank, urgency and frequency of urination. Patient denies any chest pain, shortness of breath, recent hospitalization, recent travel. Patient reports that she had a CABG done about 5 years ago and follows cardiology on a regular basis. Patient reports no history of smoking, drinking alcohol or use of illicit drugs. Initial lab work in the ER shows WBC 19.8, hemoglobin 13.0, platelet count 331, neutrophil count 18.6, sodium 131, potassium 5.6, BUN 77, creatinine 1.04, glucose 287, calcium 10.5, NT proBNP 9600. Subsequent lab work showed WBC 32.9, neutrophil count 31.1, sodium 131, potassium 5.2, bicarb 21, BUN 78, creatinine 1.11, glucose 260, magnesium 2.5. Urinalysis shows glycosuria, ketonuria, leukocyte esterase and negative urine nitrite. Chest x-ray in the ER shows cardiomegaly, pulmonary vascular addition to bilateral pleural effusions. Echocardiogram shows ischemic cardiomyopathy with ejection fraction of about 325% with mild to moderate MR, moderate AR and mild to moderate TR with moderate pulmonary hypertension. There is a severe hypokinesia involving the anteroseptal portion as well as apical septal portion. CT abdomen and pelvis is unable to exclude pyelonephritis otherwise there is no acute process noted. Vital signs on arrival shows temperature 97.9 F, pulse rate 92, respiratory rate 16, blood pressure 148/72, oxygen saturation 98% on room air. Subsequent vital signs show temperature 98.8 F, pulse rate 87, respirate 18, blood pressure 125/76, oxygen saturation 99% 2 L via nasal cannula. Subjective: Patient seen and examined at the bedside. No acute events overnight. Patient continue to experience right flank pain. Denies any nausea, vomiting, fever or chills. All Systems reviewed and pertinent positives and negatives noted in HPI, all other symptoms are negative Objective: Physical examination: Vital signs reviewed General: non toxic, no distress, appears at stated age, overweight Derm: There are 2 stage II ulcers on the left buttock and 1 stage II ulcer on the right buttock, bilateral groin rash, nonpurulent ulcerated lesion on left lower extremity, Head: atraumatic, normocephalic, symmetric Eyes: EOMI, no lid lag, anicteric sclera, pupils equal round reactive to light ENT: Nose and ears atraumatic Neck: No cervical lymphadenopathy, trachea midline, supple Mouth: no lip lesion, mucus membranes moist Cardiovascular: S1S2 reg, no murmur, positive dorsalis pedis pulse bilateral, bilateral 1+ pitting edema LE Lungs: Diffuse bilateral wheezing with bibasilar crackles noted Abdominal: soft, nontender to palpation, no guarding, right CVA tenderness Ext: muscle strength 5 out of 5 in all 4 extremities grossly, no gross muscle atrophy, no contractures, Neuro: CN II-XI grossly intact, no gross focal neuro deficits Psych: Alert, oriented, appropriate affect Data reviewed today: Pertinent Labs: WBC 11.76, hemoglobin 10.7, sodium 138, potassium 5.3 Pertinent imaging: No new imaging today. Assessment and Plan: Active problems: #CHF exacerbation #Acute hypoxemic respiratory failure secondary to CHF exacerbation #Ischemic cardiomyopathy with ejection fraction of 30 to 35% status post biventricular ICD #community-acquired pneumonia #RSV positive (acute tracheobronchitis) #MRSA bacteremia Oxygen therapy as needed Cardiology on board, appreciate recs Echocardiogram shows LVEF 30 to 35% GDMT: Entresto 24-26 mg OD, Aldactone 12.5 mg OD, Coreg 6.25 mg twice daily, Farxiga 5 mg p.o. daily Discontinue IV Lasix; continue with Lasix 40 mg in a.m. and 20 mg p.o. p.m. Fluid restrictions, I's and O's and daily weights Initial blood culture positive for MRSA infection Repeat blood culture positive for bacterial growth, pending full report Continue IV vancomycin per pharmacy dosing, monitor renal function Discontinue IV Rocephin and Zithromax Procalcitonin positive, urine Legionella antigen negative, sputum culture pending DuoNebs as scheduled and [id number] Order SILVIANO to rule out infective endocarditis, scheduled for Saturday with Dr. Metzger #Right CVA tenderness secondary to right pyelonephritis #Stage II pressure ulcers on buttocks #Left lower extremity venous stasis ulcer #Bilateral groin rash CT abdomen and pelvis is unable to exclude pyelonephritis otherwise there is no acute process noted. Urinalysis positive for leukocyte esterase IVPB vancomycin as above Mycostatin powder and Bactroban ointment Urine culture Infectious disease on board, appreciate recs Wound care on board, appreciate recs Repeat blood culture ordered on 08/06/2024 #Hypervolemic hyponatremia, resolved, #Hyperkalemia Fluid restriction 1500 mL Monitor BMP #Type 2 diabetes mellitus Accu-Cheks and insulin scale insulin Lantus 15 units SQ at bedtime Humalog 5 units subcu 3 times daily with meals Monitor for hypoglycemia #Hypermagnesemia Continue monitor Hold magnesium oxide 400 mg p.o. daily Chronic: Hypertension: Resume Entresto Hyperlipidemia: Resume atorvastatin 40 mg GERD: Resume Protonix 40 mg DVT prophylaxis: Lovenox 40 mg subcu daily GI prophylaxis: Protonix 40 mg F: None E: Replete as needed N: Heart healthy diet A: Ambulatory at baseline The patient is admitted with an anticipated more than than 2 midnight stay for evaluation of CHF exacerbation, suspected CAP, pyelonephritis CODE STATUS: Full code Discussed with: Patient Anticipated discharge place: Pending clinical course Dictation was produced using [employer] dictation software. Please excuse any grammatical, word or spelling errors. Attestation I have seen and examined this patient with my resident , discussed the same with the resident/PETER, and agree with the dictator's assessment and plan as written Dr. Leo acuña Objective - Vital Signs Vital signs: Vital Signs Temp 98.4 F 08/07/24 07:50 Pulse 71 08/07/24 07:50 Resp 18 08/07/24 07:50 BP 133/66 08/07/24 07:50 Pulse Ox 98 08/07/24 07:50 FiO2 Intake & Output 08/06/24 08/07/24 08/07/24 18:59 06:59 18:59 Weight 70.5 kg 70.5 kg Other: Voiding Method Diaper Diaper Incontinent # Voids 3 # Bowel Movements 1 - Labs CBC & Chem 7: 08/12/24 03:23 08/12/24 03:23 Labs: Abnormal Lab Results - Last 24 Hours (Table) 08/06/24 08/06/24 08/07/24 Range/Units 16:55 20:54 05:30 WBC (4.50-10.00) X 10*3/uL RBC (4.10-5.20) X 10*6/uL Hgb (12.0-15.0) g/dL Hct (37.2-46.3) % MCV (80.0-97.0) FL MCHC (32.0-37.0) g/dL Immature Gran # (0.00-0.04) X 10*3/uL Neutrophils # (1.80-7.70) X 10*3/uL Lymphocytes # (0.90-5.00) X 10*3/uL Potassium 5.3 H (3.5-5.1) mmol/L BUN 60 H (7-17) mg/dL Glucose 151 H (74-99) mg/dL POC Glucose (mg/dL) 274 H 309 H (70-110) mg/dL 08/07/24 08/07/24 08/07/24 Range/Units 05:30 06:34 11:09 WBC 11.76 H (4.50-10.00) X 10*3/uL RBC 3.47 L (4.10-5.20) X 10*6/uL Hgb 10.7 L (12.0-15.0) g/dL Hct 34.0 L (37.2-46.3) % MCV 98.0 H (80.0-97.0) FL MCHC 31.5 L (32.0-37.0) g/dL Immature Gran # 0.08 H (0.00-0.04) X 10*3/uL Neutrophils # 10.21 H (1.80-7.70) X 10*3/uL Lymphocytes # 0.57 L (0.90-5.00) X 10*3/uL Potassium (3.5-5.1) mmol/L BUN (7-17) mg/dL Glucose (74-99) mg/dL POC Glucose (mg/dL) 186 H 193 H (70-110) mg/dL Microbiology - Last 24 Hours (Table) 08/04/24 10:00 Blood Culture Gram Stain - Final Blood Blood Culture - Final Methicillin resist S. aureus Molecular ID 08/06/24 05:28 Blood Culture Gram Stain - Preliminary Blood
[2024-08-07 16:26] LABS: Glucose,Whole Blood 215 mg/dL (70-110)
[2024-08-07] MEDS: MORPHINE SULFATE 4 MG/ML SYRINGE IV PRN (16:31)
[2024-08-07 17:24] LABS: African American GFR (CKD) 79 (>60 ml/min/1.73 sqM); Anion Gap 12 mmol/L; Blood Urea Nitrogen 55 mg/dL (7-17); Calcium 8.6 mg/dL (8.4-10.2); Carbon Dioxide 18 mmol/L (22-30); Chloride 107 mmol/L (98-107); Glucose 213 mg/dL (74-99); Non-African American GFR(CKD) 68 (>60 ml/min/1.73 sqM); Sodium 137 mmol/L (137-145)
[2024-08-07 17:25] LABS: Potassium 4.6 mmol/L (3.5-5.1)
[2024-08-07 20:33] LABS: Glucose,Whole Blood 224 mg/dL (70-110)
[2024-08-08 05:23] LABS: African American GFR (CKD) 62 (>60 ml/min/1.73 sqM); Anion Gap 8 mmol/L; Blood Urea Nitrogen 60 mg/dL (7-17); Calcium 8.4 mg/dL (8.4-10.2); Carbon Dioxide 22 mmol/L (22-30); Chloride 106 mmol/L (98-107); Glucose 129 mg/dL (74-99); Non-African American GFR(CKD) 53 (>60 ml/min/1.73 sqM); Potassium 4.3 mmol/L (3.5-5.1); Sodium 136 mmol/L (137-145)
[2024-08-08 05:30] LABS: Vancomycin,Random 16.4 ug/mL
[2024-08-08 06:19] LABS: Glucose,Whole Blood 148 mg/dL (70-110)
[2024-08-08] MEDS: VANCOMYCIN 1,250 MG in SODIUM CHLORIDE 0.9% 250 ML IVPB SCH (08:28)
[2024-08-08] MEDS: ENOXAPARIN 40 MG/0.4 ML SYRINGE SQ SCH (08:29)
[2024-08-08 09:52] LABS: Basophils # (A) 0.01 X 10*3/uL (0.00-0.10); Basophils % (A) 0.1 %; Eosinophils # (A) 0.09 X 10*3/uL (0.04-0.35); Eosinophils % (A) 0.9 %; HGB 10.2 g/dL (12.0-15.0); Lymphocytes # (A) 0.72 X 10*3/uL (0.90-5.00); Lymphocytes % (A) 6.9 %; MCH 30.8 pg (27.0-32.0); MCHC 31.9 g/dL (32.0-37.0); MCV 96.7 FL (80.0-97.0); Mean Platelet Volume 10.9 FL (9.5-12.2); Monocytes # (A) 0.75 X 10*3/uL (0.20-1.00); Monocytes % (A) 7.2 %; NRBC Per 100 WBC 0 X 10*3/uL (0.00-0.01); Neutrophils # (A) 8.74 X 10*3/uL (1.80-7.70); Neutrophils % (A) 84.2 %; Platelet Count 191 X 10*3/uL (140-440); RBC 3.31 X 10*6/uL (4.10-5.20); RDW 14.3 % (11.5-14.5); WBC 10.38 X 10*3/uL (4.50-10.00)
[2024-08-08 11:32] LABS: Glucose,Whole Blood 281 mg/dL (70-110)
[2024-08-08] MEDS: INSULIN LISPRO (HumaLOG) 100 UNIT/ML 10 mL VL SQ SCH (12:47)
[2024-08-08] MEDS: ACETAMINOPHEN TAB 325 MG TAB PO PRN (13:07)
--- NOTE | 2024-08-08 13:43 | P.PN ---
Subjective Progress Note Date: 08/08/24 Hospital Course: Patient is a 84-year-old female with history of CAD status post CABG, heart failure, dementia, type 2 diabetes, hypertension, hyperlipidemia presents to the ER with complaint of fever, chills, generalized weakness and abnormal lab work. Patient states that she is living at [facility] and since last week she has been endorsing generalized weakness associated with fever, chills and nonproductive cough. Patient reports sick contact at [facility]. Patient also reports swelling in her legs, orthopnea, PND, pain in her right flank, urgency and frequency of urination. Patient denies any chest pain, shortness of breath, recent hospitalization, recent travel. Patient reports that she had a CABG done about 5 years ago and follows cardiology on a regular basis. Patient reports no history of smoking, drinking alcohol or use of illicit drugs. Initial lab work in the ER shows WBC 19.8, hemoglobin 13.0, platelet count 331, neutrophil count 18.6, sodium 131, potassium 5.6, BUN 77, creatinine 1.04, glucose 287, calcium 10.5, NT proBNP 9600. Subsequent lab work showed WBC 32.9, neutrophil count 31.1, sodium 131, potassium 5.2, bicarb 21, BUN 78, creatinine 1.11, glucose 260, magnesium 2.5. Urinalysis shows glycosuria, ketonuria, leukocyte esterase and negative urine nitrite. Chest x-ray in the ER shows cardiomegaly, pulmonary vascular addition to bilateral pleural effusions. Echocardiogram shows ischemic cardiomyopathy with ejection fraction of about 325% with mild to moderate MR, moderate AR and mild to moderate TR with moderate pulmonary hypertension. There is a severe hypokinesia involving the anteroseptal portion as well as apical septal portion. CT abdomen and pelvis is unable to exclude pyelonephritis otherwise there is no acute process noted. Vital signs on arrival shows temperature 97.9 F, pulse rate 92, respiratory rate 16, blood pressure 148/72, oxygen saturation 98% on room air. Subsequent vital signs show temperature 98.8 F, pulse rate 87, respirate 18, blood pressure 125/76, oxygen saturation 99% 2 L via nasal cannula. Subjective: Patient seen and examined at the bedside. No acute events overnight. Patient continue to experience right flank pain. Denies any nausea, vomiting, fever or chills. SILVIANO scheduled for Saturday. All Systems reviewed and pertinent positives and negatives noted in HPI, all other symptoms are negative Objective: Physical examination: Vital signs reviewed General: non toxic, no distress, appears at stated age, overweight Derm: There are 2 stage II ulcers on the left buttock and 1 stage II ulcer on the right buttock, bilateral groin rash, nonpurulent ulcerated lesion on left lower extremity, Head: atraumatic, normocephalic, symmetric Eyes: EOMI, no lid lag, anicteric sclera, pupils equal round reactive to light ENT: Nose and ears atraumatic Neck: No cervical lymphadenopathy, trachea midline, supple Mouth: no lip lesion, mucus membranes moist Cardiovascular: S1S2 reg, no murmur, positive dorsalis pedis pulse bilateral, bilateral 1+ pitting edema LE Lungs: Diffuse bilateral wheezing with bibasilar crackles noted Abdominal: soft, nontender to palpation, no guarding, right CVA tenderness Ext: muscle strength 5 out of 5 in all 4 extremities grossly, no gross muscle atrophy, no contractures, Neuro: CN II-XI grossly intact, no gross focal neuro deficits Psych: Alert, oriented, appropriate affect Data reviewed today: Pertinent Labs: WBC 10.38, hemoglobin 10.2, sodium 136, potassium 4.3, BUN 60, creatinine 0.99, Pertinent imaging: No new imaging today. Assessment and Plan: Active problems: #CHF exacerbation #Acute hypoxemic respiratory failure secondary to CHF exacerbation #Ischemic cardiomyopathy with ejection fraction of 30 to 35% status post biventricular ICD #community-acquired pneumonia #RSV positive (acute tracheobronchitis) #MRSA bacteremia Oxygen therapy as needed Cardiology on board, appreciate recs Echocardiogram shows LVEF 30 to 35% GDMT: Entresto 24-26 mg OD, Aldactone 12.5 mg OD, Coreg 6.25 mg twice daily, Farxiga 5 mg p.o. daily Discontinue IV Lasix; continue with Lasix 40 mg in a.m. and 20 mg p.o. p.m. Fluid restrictions, I's and O's and daily weights Initial blood culture positive for MRSA infection Repeat blood culture positive for MRSA, pending full report Continue IV vancomycin per pharmacy dosing, monitor renal function Discontinue IV Rocephin and Zithromax Procalcitonin positive, urine Legionella antigen negative, sputum culture pending DuoNebs as scheduled and [id number] Order SILVIANO to rule out infective endocarditis, scheduled for Saturday with Dr. Metzger #Right CVA tenderness secondary to right pyelonephritis #Stage II pressure ulcers on buttocks #Left lower extremity venous stasis ulcer #Bilateral groin rash CT abdomen and pelvis is unable to exclude pyelonephritis otherwise there is no acute process noted. Urinalysis positive for leukocyte esterase IVPB vancomycin as above Mycostatin powder and Bactroban ointment Urine culture Infectious disease on board, appreciate recs Wound care on board, appreciate recs Repeat blood culture ordered on 08/06/2024 Order urinalysis reflex to culture #Hypervolemic hyponatremia, resolved, #Hyperkalemia Fluid restriction 1500 mL Monitor BMP #Type 2 diabetes mellitus Accu-Cheks and insulin scale insulin Lantus 8 units subcu twice daily Humalog 7 units subcu 3 times daily with meals Monitor for hypoglycemia #Hypermagnesemia Continue monitor Hold magnesium oxide 400 mg p.o. daily Chronic: Hypertension: Entresto Hyperlipidemia: atorvastatin 40 mg GERD: Protonix 40 mg DVT prophylaxis: Lovenox 40 mg subcu daily GI prophylaxis: Protonix 40 mg F: None E: Replete as needed N: Heart healthy diet A: Ambulatory at baseline CODE STATUS: Full code Discussed with: Patient Anticipated discharge place: Pending clinical course Dictation was produced using [employer] dictation software. Please excuse any grammatical, word or spelling errors. Objective - Vital Signs Vital signs: Vital Signs Temp 98.6 F 08/08/24 00:55 Pulse 90 08/08/24 07:48 Resp 18 08/08/24 07:48 BP 144/75 08/08/24 07:48 Pulse Ox 98 08/08/24 07:48 FiO2 Intake & Output 08/07/24 08/08/24 08/08/24 18:59 06:59 18:59 Intake Total 800 Balance 800 Intake: Oral 800 Other: Voiding Method Diaper Diaper Diaper Incontinent # Voids 2 - Labs CBC & Chem 7: 08/08/24 04:12 08/08/24 04:12 Labs: Abnormal Lab Results - Last 24 Hours (Table) 08/07/24 08/07/24 08/07/24 Range/Units 16:25 16:38 20:32 WBC (4.50-10.00) X 10*3/uL RBC (4.10-5.20) X 10*6/uL Hgb (12.0-15.0) g/dL Hct (37.2-46.3) % MCHC (32.0-37.0) g/dL Immature Gran # (0.00-0.04) X 10*3/uL Neutrophils # (1.80-7.70) X 10*3/uL Lymphocytes # (0.90-5.00) X 10*3/uL Sodium (137-145) mmol/L Carbon Dioxide 18 L (22-30) mmol/L BUN 55 H (7-17) mg/dL Glucose 213 H (74-99) mg/dL POC Glucose (mg/dL) 215 H 224 H (70-110) mg/dL 08/08/24 08/08/24 08/08/24 Range/Units 04:12 04:12 06:18 WBC 10.38 H (4.50-10.00) X 10*3/uL RBC 3.31 L (4.10-5.20) X 10*6/uL Hgb 10.2 L (12.0-15.0) g/dL Hct 32.0 L (37.2-46.3) % MCHC 31.9 L (32.0-37.0) g/dL Immature Gran # 0.07 H (0.00-0.04) X 10*3/uL Neutrophils # 8.74 H (1.80-7.70) X 10*3/uL Lymphocytes # 0.72 L (0.90-5.00) X 10*3/uL Sodium 136 L (137-145) mmol/L Carbon Dioxide (22-30) mmol/L BUN 60 H (7-17) mg/dL Glucose 129 H (74-99) mg/dL POC Glucose (mg/dL) 148 H (70-110) mg/dL 08/08/24 Range/Units 11:31 WBC (4.50-10.00) X 10*3/uL RBC (4.10-5.20) X 10*6/uL Hgb (12.0-15.0) g/dL Hct (37.2-46.3) % MCHC (32.0-37.0) g/dL Immature Gran # (0.00-0.04) X 10*3/uL Neutrophils # (1.80-7.70) X 10*3/uL Lymphocytes # (0.90-5.00) X 10*3/uL Sodium (137-145) mmol/L Carbon Dioxide (22-30) mmol/L BUN (7-17) mg/dL Glucose (74-99) mg/dL POC Glucose (mg/dL) 281 H (70-110) mg/dL Microbiology - Last 24 Hours (Table) 08/06/24 05:28 Blood Culture Gram Stain - Preliminary Blood Blood Culture - Preliminary Presumptive MRSA 08/04/24 10:00 Blood Culture Gram Stain - Final Blood Blood Culture - Final Methicillin resist S. aureus Molecular ID
[2024-08-08] MEDS: INSULIN GLARGINE (LANTUS) 100 UNIT/ML SYR SQ SCH (14:48)
--- NOTE | 2024-08-08 15:15 | P.PN ---
Subjective Progress Note Date: 08/08/24 Principal diagnosis: Reason for follow-up is RSV and MRSA bacteremia Patient is a 84-year-old female with a past medical history significant for Coronary Artery Disease (CAD), Heart Failure, Dementia, Diabetes Mellitus, Hypertension, Myocardial Infarction ([place]), Pneumonia, Vascular Disorder coming to the ER concerning for generalized weakness fever and chills, patient tested positive for RSV did have a chest x-ray pulmonary vascular congestion cardiomegaly subsequently blood cultures came back positive with MRSA. On today's evaluation that is 08/08/2024, patient did not have any fever and denies any chills, patient is breathing comfortably on room air, patient with no chest pain or cough patient did not have any abdominal pain nausea vomiting or any loose stools still complain of some pain to the lower back/sacral area with the patient did have the wound. Patient white count is normalized to 10.38, creatinine 0.99 blood culture from 08/06/2024 also positive for MRSA Objective - Vital Signs Vital signs: Vital Signs Temp 97.9 F 08/08/24 14:17 Pulse 63 08/08/24 14:17 Resp 18 08/08/24 14:17 BP 125/62 08/08/24 14:17 Pulse Ox 99 08/08/24 14:17 FiO2 Intake & Output 08/07/24 08/08/24 08/08/24 18:59 06:59 18:59 Intake Total 800 Balance 800 Intake: Oral 800 Other: Voiding Method Diaper Diaper Diaper Incontinent # Voids 2 - Exam GENERAL DESCRIPTION: An elderly female lying in bed in no distress RESPIRATORY SYSTEM: Unlabored breathing , coarse breath sounds bilaterally HEART: S1 S2 regular rate and rhythm , ABDOMEN: Soft , no tenderness Patient did have a stage II pressure ulcer bilateral gluteal area but no cellulitis - Labs CBC & Chem 7: 08/08/24 04:12 08/08/24 04:12 Labs: Abnormal Lab Results - Last 24 Hours (Table) 08/07/24 08/07/24 08/07/24 Range/Units 16:25 16:38 20:32 WBC (4.50-10.00) X 10*3/uL RBC (4.10-5.20) X 10*6/uL Hgb (12.0-15.0) g/dL Hct (37.2-46.3) % MCHC (32.0-37.0) g/dL Immature Gran # (0.00-0.04) X 10*3/uL Neutrophils # (1.80-7.70) X 10*3/uL Lymphocytes # (0.90-5.00) X 10*3/uL Sodium (137-145) mmol/L Carbon Dioxide 18 L (22-30) mmol/L BUN 55 H (7-17) mg/dL Glucose 213 H (74-99) mg/dL POC Glucose (mg/dL) 215 H 224 H (70-110) mg/dL 08/08/24 08/08/24 08/08/24 Range/Units 04:12 04:12 06:18 WBC 10.38 H (4.50-10.00) X 10*3/uL RBC 3.31 L (4.10-5.20) X 10*6/uL Hgb 10.2 L (12.0-15.0) g/dL Hct 32.0 L (37.2-46.3) % MCHC 31.9 L (32.0-37.0) g/dL Immature Gran # 0.07 H (0.00-0.04) X 10*3/uL Neutrophils # 8.74 H (1.80-7.70) X 10*3/uL Lymphocytes # 0.72 L (0.90-5.00) X 10*3/uL Sodium 136 L (137-145) mmol/L Carbon Dioxide (22-30) mmol/L BUN 60 H (7-17) mg/dL Glucose 129 H (74-99) mg/dL POC Glucose (mg/dL) 148 H (70-110) mg/dL 08/08/24 Range/Units 11:31 WBC (4.50-10.00) X 10*3/uL RBC (4.10-5.20) X 10*6/uL Hgb (12.0-15.0) g/dL Hct (37.2-46.3) % MCHC (32.0-37.0) g/dL Immature Gran # (0.00-0.04) X 10*3/uL Neutrophils # (1.80-7.70) X 10*3/uL Lymphocytes # (0.90-5.00) X 10*3/uL Sodium (137-145) mmol/L Carbon Dioxide (22-30) mmol/L BUN (7-17) mg/dL Glucose (74-99) mg/dL POC Glucose (mg/dL) 281 H (70-110) mg/dL Microbiology - Last 24 Hours (Table) 08/06/24 05:28 Blood Culture Gram Stain - Preliminary Blood Blood Culture - Preliminary Presumptive MRSA Assessment and Plan (1) Leukocytosis Current Visit: Yes Status: Acute Code(s): D72.829 - ELEVATED WHITE BLOOD CELL COUNT, UNSPECIFIED SNOMED Code(s): 962255973 (2) RSV (acute bronchiolitis due to respiratory syncytial virus) Current Visit: Yes Status: Acute Code(s): J21.0 - ACUTE BRONCHIOLITIS DUE TO RESPIRATORY SYNCYTIAL VIRUS SNOMED Code(s): 622700739 (3) MRSA bacteremia Current Visit: Yes Status: Acute Code(s): R78.81 - BACTEREMIA; B95.62 - METHICILLIN RESIS STAPH INFCT CAUSING DISEASES [facility]SD [facility] SNOMED Code(s): 66378740552889132 Plan: 1patient presented to hospital with generalized weakness fever and chills has been diagnosed with RSV chest x-ray is mostly pulmonary vascular congestion CT abdominal pelvis did not show any acute intra-abdominal process and UA was not significantly positive 2-patient did have bilateral stage II gluteal pressure ulcer but no evidence of any cellulitis 3-patient with a positive blood culture with MRSA source likely pulmonary 4-blood cultures repeat also came back positive concerning for possible endovascular source, SILVIANO has been ordered by cardiology 5-patient white count has normalized we will continue with the vancomycin repeat blood culture with a.m. lab to document clearance of bacteremia Dictation was produced using [employer] dictation software. please excuse any grammatical, word or spelling errors. Time with Patient: Less than 30
[2024-08-08 16:34] LABS: Glucose,Whole Blood 222 mg/dL (70-110)
[2024-08-08 20:07] LABS: Glucose,Whole Blood 154 mg/dL (70-110)
[2024-08-09 02:32] LABS: Appearance,Urine Cloudy (Clear); Bacteria,Urine Moderate /hpf; Bilirubin,Urine Negative (Negative); Blood,Urine Negative (Negative); Budding Yeast,Urine Occasional /hpf; Color,Urine Light Yellow; Glucose,Urine (UA) 4+ (Negative); Hyaline Casts,Urine 1 /lpf (0-2); Ketones,Urine Negative (Negative); Leukocyte Esterase,Urine Large (Negative); Mucus,Urine Rare /hpf; Nitrite,Urine Negative (Negative); Protein,Urine Negative (Negative); RBC,Urine 4 /hpf (0-5); Specific Gravity,Urine 1.013 (1.001-1.035); Squamous Epithelial Cell,Urine 5 /hpf (0-4); Urobilinogen,Urine <2.0 mg/dL (<2.0); WBC,Urine 114 /hpf (0-5)
[2024-08-09 03:32] LABS: African American GFR (CKD) 65 (>60 ml/min/1.73 sqM); Anion Gap 8 mmol/L; Blood Urea Nitrogen 66 mg/dL (7-17); Calcium 8.5 mg/dL (8.4-10.2); Carbon Dioxide 20 mmol/L (22-30); Chloride 105 mmol/L (98-107); Glucose 105 mg/dL (74-99); Magnesium 2.2 mg/dL (1.6-2.3); Non-African American GFR(CKD) 56 (>60 ml/min/1.73 sqM); Potassium 4.3 mmol/L (3.5-5.1); Sodium 133 mmol/L (137-145)
[2024-08-09 06:04] LABS: Glucose,Whole Blood 143 mg/dL (70-110)
[2024-08-09 09:31] LABS: Basophils # (A) 0.02 X 10*3/uL (0.00-0.10); Basophils % (A) 0.2 %; Eosinophils # (A) 0.18 X 10*3/uL (0.04-0.35); Eosinophils % (A) 1.5 %; HGB 10.6 g/dL (12.0-15.0); Lymphocytes # (A) 0.79 X 10*3/uL (0.90-5.00); Lymphocytes % (A) 6.7 %; MCH 30.4 pg (27.0-32.0); MCHC 30.3 g/dL (32.0-37.0); MCV 100.3 FL (80.0-97.0); Mean Platelet Volume 11.1 FL (9.5-12.2); Monocytes # (A) 0.73 X 10*3/uL (0.20-1.00); Monocytes % (A) 6.2 %; NRBC Per 100 WBC 0 X 10*3/uL (0.00-0.01); Neutrophils # (A) 10.02 X 10*3/uL (1.80-7.70); Neutrophils % (A) 84.6 %; Platelet Count 190 X 10*3/uL (140-440); RBC 3.49 X 10*6/uL (4.10-5.20); RDW 14.3 % (11.5-14.5); WBC 11.84 X 10*3/uL (4.50-10.00)
[2024-08-09 11:28] LABS: Glucose,Whole Blood 247 mg/dL (70-110)
--- NOTE | 2024-08-09 16:08 | P.PN ---
Subjective Progress Note Date: 08/09/24 Principal diagnosis: Reason for follow-up is RSV and MRSA bacteremia Patient is a 84-year-old female with a past medical history significant for Coronary Artery Disease (CAD), Heart Failure, Dementia, Diabetes Mellitus, Hypertension, Myocardial Infarction ([place]), Pneumonia, Vascular Disorder coming to the ER concerning for generalized weakness fever and chills, patient tested positive for RSV did have a chest x-ray pulmonary vascular congestion cardiomegaly subsequently blood cultures came back positive with MRSA. On today's evaluation that is 08/09/2024, Patient is afebrile patient is currently on room air and denies having any shortness of breath, the patient d enies any chest pain or cough, the patient denies any nausea vomiting did not have any abdominal pain and no diarrhea still complaining of pain to the lower back area. Patient white count is 11.84, creatinine 0.95 UA has been positive blood culture with MRSA Objective - Vital Signs Vital signs: Vital Signs Temp 98.7 F 08/09/24 13:45 Pulse 81 08/09/24 13:45 Resp 18 08/09/24 13:45 BP 120/68 08/09/24 13:45 Pulse Ox 91 L 08/09/24 13:45 FiO2 Intake & Output 08/08/24 08/09/24 08/09/24 18:59 06:59 18:59 Intake Total 240 240 Output Total 200 400 Balance 40 -160 Weight 69.5 kg Intake: Oral 240 240 Output: Urine 200 400 Other: Voiding Method Diaper Diaper Diaper External Catheter # Voids 4 2 1 # Bowel Movements 0 - Exam GENERAL DESCRIPTION: An elderly female lying in bed in no distress RESPIRATORY SYSTEM: Unlabored breathing , coarse breath sounds bilaterally HEART: S1 S2 regular rate and rhythm , ABDOMEN: Soft , no tenderness Patient did have a stage II pressure ulcer bilateral gluteal area but no cellulitis - Labs CBC & Chem 7: 08/09/24 02:46 08/09/24 02:46 Labs: Abnormal Lab Results - Last 24 Hours (Table) 08/08/24 08/08/24 08/09/24 Range/Units 16:27 20:06 01:45 WBC (4.50-10.00) X 10*3/uL RBC (4.10-5.20) X 10*6/uL Hgb (12.0-15.0) g/dL Hct (37.2-46.3) % MCV (80.0-97.0) FL MCHC (32.0-37.0) g/dL Immature Gran # (0.00-0.04) X 10*3/uL Neutrophils # (1.80-7.70) X 10*3/uL Lymphocytes # (0.90-5.00) X 10*3/uL Sodium (137-145) mmol/L Carbon Dioxide (22-30) mmol/L BUN (7-17) mg/dL Glucose (74-99) mg/dL POC Glucose (mg/dL) 222 H 154 H (70-110) mg/dL Urine Appearance Cloudy H (Clear) Urine Glucose (UA) 4+ H (Negative) Ur Leukocyte Esterase Large H (Negative) Urine WBC 114 H (0-5) /hpf Ur Squamous Epith Cells 5 H (0-4) /hpf Urine Bacteria Moderate H (None) /hpf Urine Mucus Rare H (None) /hpf Urine Yeast (Budding) Occasional H (None) /hpf 08/09/24 08/09/24 08/09/24 Range/Units 02:46 02:46 06:03 WBC 11.84 H (4.50-10.00) X 10*3/uL RBC 3.49 L (4.10-5.20) X 10*6/uL Hgb 10.6 L (12.0-15.0) g/dL Hct 35.0 L (37.2-46.3) % MCV 100.3 H (80.0-97.0) FL MCHC 30.3 L (32.0-37.0) g/dL Immature Gran # 0.10 H (0.00-0.04) X 10*3/uL Neutrophils # 10.02 H (1.80-7.70) X 10*3/uL Lymphocytes # 0.79 L (0.90-5.00) X 10*3/uL Sodium 133 L (137-145) mmol/L Carbon Dioxide 20 L (22-30) mmol/L BUN 66 H (7-17) mg/dL Glucose 105 H (74-99) mg/dL POC Glucose (mg/dL) 143 H (70-110) mg/dL Urine Appearance (Clear) Urine Glucose (UA) (Negative) Ur Leukocyte Esterase (Negative) Urine WBC (0-5) /hpf Ur Squamous Epith Cells (0-4) /hpf Urine Bacteria (None) /hpf Urine Mucus (None) /hpf Urine Yeast (Budding) (None) /hpf 08/09/24 Range/Units 11:23 WBC (4.50-10.00) X 10*3/uL RBC (4.10-5.20) X 10*6/uL Hgb (12.0-15.0) g/dL Hct (37.2-46.3) % MCV (80.0-97.0) FL MCHC (32.0-37.0) g/dL Immature Gran # (0.00-0.04) X 10*3/uL Neutrophils # (1.80-7.70) X 10*3/uL Lymphocytes # (0.90-5.00) X 10*3/uL Sodium (137-145) mmol/L Carbon Dioxide (22-30) mmol/L BUN (7-17) mg/dL Glucose (74-99) mg/dL POC Glucose (mg/dL) 247 H (70-110) mg/dL Urine Appearance (Clear) Urine Glucose (UA) (Negative) Ur Leukocyte Esterase (Negative) Urine WBC (0-5) /hpf Ur Squamous Epith Cells (0-4) /hpf Urine Bacteria (None) /hpf Urine Mucus (None) /hpf Urine Yeast (Budding) (None) /hpf Microbiology - Last 24 Hours (Table) 08/06/24 05:28 Blood Culture Gram Stain - Final Blood Blood Culture - Final Methicillin resist S. aureus Assessment and Plan (1) Leukocytosis Current Visit: Yes Status: Acute Code(s): D72.829 - ELEVATED WHITE BLOOD CELL COUNT, UNSPECIFIED SNOMED Code(s): 362058320 (2) RSV (acute bronchiolitis due to respiratory syncytial virus) Current Visit: Yes Status: Acute Code(s): J21.0 - ACUTE BRONCHIOLITIS DUE TO RESPIRATORY SYNCYTIAL VIRUS SNOMED Code(s): 927305760 (3) MRSA bacteremia Current Visit: Yes Status: Acute Code(s): R78.81 - BACTEREMIA; B95.62 - METHICILLIN RESIS STAPH INFCT CAUSING DISEASES CL[facility]SD [facility] SNOMED Code(s): 85326775506261082 Plan: 1patient presented to hospital with generalized weakness fever and chills has been diagnosed with RSV chest x-ray is mostly pulmonary vascular congestion CT abdominal pelvis did not show any acute intra-abdominal process and UA was not significantly positive 2-patient did have bilateral stage II gluteal pressure ulcer but no evidence of any cellulitis 3-patient with a positive blood culture with MRSA source likely pulmonary 4-blood cultures repeat also came back positive concerning for possible endovascular source, SILVIANO has been ordered by cardiology 5-patient currently being treated with the vancomycin, with a sacral pressure ulcer and pain recommend air mattress family at the bedside question answered Dictation was produced using [employer] dictation software. please excuse any gramm atical, word or spelling errors. Time with Patient: Less than 30
[2024-08-09 16:56] LABS: Glucose,Whole Blood 169 mg/dL (70-110)
[2024-08-09 20:00] LABS: Glucose,Whole Blood 214 mg/dL (70-110)
--- NOTE | 2024-08-09 23:30 | PN ---
PROGRESS NOTE DATE OF SERVICE: 08/09/2024 SUBJECTIVE: This 84-year-old woman, who was admitted with CHF acute exacerbation, is being closely monitored. No chest pain. No palpitations. The patient with ischemic cardiomyopathy. PHYSICAL EXAMINATION: VITAL SIGNS: Pulse is 81, blood pressure 120/68, and respirations 18. HEENT: Conjunctivae normal. NECK: No JVD. CARDIOVASCULAR: S1, S2. RESPIRATIONS: Breath sounds diminished at the bases. A few scattered rhonchi. ABDOMEN: Soft. NERVOUS SYSTEM: Nonfocal. LABORATORY DATA: Reviewed. Rule out UTI. ASSESSMENT: 1. Congestive heart failure acute exacerbation. 2. Acute hypoxic respiratory failure secondary to congestive heart failure acute exacerbation. 3. Ischemic cardiomyopathy. 4. Respiratory syncytial virus. 5. Rule out urinary tract infection. RECOMMENDATIONS: Recommend to continue current management, continue symptomatic treatment. Obtain cultures. Closely follow with Cardiology. Multiple consults. Prognosis guarded. MMODL / IJN: [id number] /
[2024-08-10] MEDS ORDERED: fentaNYL (PF) 50 MCG/ML 2 ML AMP IVP PRN (06:00)
[2024-08-10] MEDS ORDERED: MIDAZOLAM 2 MG/2 ML VIAL IV PRN (06:00)
[2024-08-10 06:25] LABS: Glucose,Whole Blood 208 mg/dL (70-110)
[2024-08-10] MEDS: BENZOCAINE SPRAY 1 EACH MUCOUS MEM ONE ×2 (07:25→07:28)
[2024-08-10] MEDS: IV FLUID CONTINUATION 1,000 ML IV ONE (07:28)
[2024-08-10] MEDS: MIDAZOLAM 2 MG/2 ML VIAL IVP ONE (07:28)
[2024-08-10] MEDS: fentaNYL (PF) 50 MCG/1 ML VIAL IVP ONE (07:28)
--- NOTE | 2024-08-10 07:49 | P.PCN ---
Date of Procedure: 08/10/24 Description of Procedure: Indication: Bacteremia Procedure Description: After explaining the procedure to the patient, it's risk and complications, blood pressure, heart rate and O2 saturation were monitored. The throat was sprayed with Cetacaine. Patient received 1 mg intravenous Versed, 50 mcg intravenous fentanyl. The probe was introduced into the esophagus without difficulty. Images were obtained. Following that, the probe was removed. There was no immediate complication. Findings: Left atrial size is dilated, left ventricular systolic function is moderately to severely impaired, ejection fraction 30 to 35%. The aortic valve revealed fibrocalcific change of the aortic cusps with preserved opening. Mitral annulus calcification was noted. A wire was noted in the right ventricle. Tricuspid valve appears to be normal. Contrast bubble study revealed no shunting across the interatrial septum. Mild atherosclerotic changes of the descending thoracic aorta that was noted. No pericardial effusion was noted. Doppler: Pulse wave and color Doppler were obtained, and revealed moderate mitral with tricuspid regurgitation with severe pulmonary hypertension, the estimated right ventricular systolic pressure is 65 mmHg. Mild to moderate aortic regurgitation was noted. No shunting was noted by color Doppler study. Conclusion: 1. Dilated left atrium 2. Severe impairment of the left ventricular systolic function 3. Moderate mitral and tricuspid regurgitation with severe pulmonary hy pertension 4. Mild to moderate aortic regurgitation 5. No evidence of vegetations 6. A wire was noted in the right ventricle 7. No shunting across the interatrial septum Duration of sedation 15 minutes
[2024-08-10] MEDS: BENZOCAINE SPRAY 1 EACH MM ONE (08:59)
[2024-08-10] MEDS: ONDANSETRON ODT 4 MG TAB PO PRN (09:08)
[2024-08-10 09:20] LABS: Basophils % (A) 0 %; Eosinophils # (A) 0.2 k/uL (0-0.7); Eosinophils % (A) 2 %; HCT 34.4 % (34.0-46.0); HGB 10.4 gm/dL (11.4-16.0); Hypochromasia Slight; Lymphocytes # (A) 0.5 k/uL (1.0-4.8); Lymphocytes % (A) 6 %; MCH 29.6 pg (25.0-35.0); MCHC 30.1 g/dL (31.0-37.0); MCV 98.2 fL (80.0-100.0); Mean Platelet Volume 8.7; Monocytes # (A) 0.4 k/uL (0-1.0); Monocytes % (A) 4 %; Neutrophils # (A) 8.4 k/uL (1.3-7.7); Neutrophils % (A) 87 %; Platelet Count 226 k/uL (150-450); RDW 13.8 % (11.5-15.5); WBC 9.6 k/uL (3.8-10.6)
[2024-08-10 09:36] LABS: African American GFR (CKD) 67 (>60 ml/min/1.73 sqM); Anion Gap 7 mmol/L; Blood Urea Nitrogen 57 mg/dL (7-17); Calcium 8.1 mg/dL (8.4-10.2); Carbon Dioxide 21 mmol/L (22-30); Chloride 105 mmol/L (98-107); Glucose 115 mg/dL (74-99); Non-African American GFR(CKD) 58 (>60 ml/min/1.73 sqM); Potassium 4.5 mmol/L (3.5-5.1); Sodium 133 mmol/L (137-145)
[2024-08-10] MEDS: VANCOMYCIN TROUGH DUE 1 EACH MISC MISCELLANE ONE (09:58)
[2024-08-10] MEDS: SODIUM CHLORIDE 0.9% 1,000 ML IV SCH (09:58)
[2024-08-10 11:42] LABS: Glucose,Whole Blood 136 mg/dL (70-110)
--- NOTE | 2024-08-10 13:11 | P.PN ---
Subjective Progress Note Date: 08/10/24 Hospital Course: Patient is a 84-year-old female with history of CAD status post CABG, heart failure, dementia, type 2 diabetes, hypertension, hyperlipidemia presents to the ER with complaint of fever, chills, generalized weakness and abnormal lab work. Patient states that she is living at [facility] and since last week she has been endorsing generalized weakness associated with fever, chills and nonproductive cough. Patient reports sick contact at [facility]. Patient also reports swelling in her legs, orthopnea, PND, pain in her right flank, urgency and frequency of urination. Patient denies any chest pain, shortness of breath, recent hospitalization, recent travel. Patient reports that she had a CABG done about 5 years ago and follows cardiology on a regular basis. Patient reports no history of smoking, drinking alcohol or use of illicit drugs. Initial lab work in the ER shows WBC 19.8, hemoglobin 13.0, platelet count 331, neutrophil count 18.6, sodium 131, potassium 5.6, BUN 77, creatinine 1.04, glucose 287, calcium 10.5, NT proBNP 9600. Subsequent lab work showed WBC 32.9, neutrophil count 31.1, sodium 131, potassium 5.2, bicarb 21, BUN 78, creatinine 1.11, glucose 260, magnesium 2.5. Urinalysis shows glycosuria, ketonuria, leukocyte esterase and negative urine nitrite. Chest x-ray in the ER shows cardiomegaly, pulmonary vascular addition to bilateral pleural effusions. Echocardiogram shows ischemic cardiomyopathy with ejection fraction of about 325% with mild to moderate MR, moderate AR and mild to moderate TR with moderate pulmonary hypertension. There is a severe hypokinesia involving the anteroseptal portion as well as apical septal portion. CT abdomen and pelvis is unable to exclude pyelonephritis otherwise there is no acute process noted. Vital signs on arrival shows temperature 97.9 F, pulse rate 92, respiratory rate 16, blood pressure 148/72, oxygen saturation 98% on room air. Subsequent vital signs show temperature 98.8 F, pulse rate 87, respirate 18, blood pressure 125/76, oxygen saturation 99% 2 L via nasal cannula. Subjective: Patient seen and examined at the bedside. No acute events overnight. SILVIANO was done this morning which showed moderate to severely impaired LV systolic function with LVEF of 30 to 35%. Moderate MR and TR with severe pulmonary hypertension. No evidence of vegetations. All Systems reviewed and pertinent positives and negatives noted in HPI, all other symptoms are negative Objective: Physical examination: Vital signs reviewed General: non toxic, no distress, appears at stated age, overweight Derm: There are 2 stage II ulcers on the left buttock and 1 stage II ulcer on the right buttock, bilateral groin rash, nonpurulent ulcerated lesion on left lower extremity, Head: atraumatic, normocephalic, symmetric Eyes: EOMI, no lid lag, anicteric sclera, pupils equal round reactive to light ENT: Nose and ears atraumatic Neck: No cervical lymphadenopathy, trachea midline, supple Mouth: no lip lesion, mucus membranes moist Cardiovascular: S1S2 reg, no murmur, positive dorsalis pedis pulse bilateral, bilateral 1+ pitting edema LE Lungs: Diffuse bilateral wheezing with bibasilar crackles noted Abdominal: soft, nontender to palpation, no guarding, right CVA tenderness Ext: muscle strength 5 out of 5 in all 4 extremities grossly, no gross muscle atrophy, no contractures, Neuro: CN II-XI grossly intact, no gross focal neuro deficits Psych: Alert, oriented, appropriate affect Data reviewed today: Pertinent Labs: WBC 9.6, hemoglobin 10.4, sodium 133, potassium 4.5, BUN 57, creatinine 0.92, calcium 8.1 Pertinent imaging: No new imaging today. Assessment and Plan: # Acute on chronic systolic CHF exacerbation, resolved #Acute hypoxemic respiratory failure secondary to CHF exacerbation, resolved #Ischemic cardiomyopathy with ejection fraction of 30 to 35% status post biventricular ICD #community-acquired pneumonia, resolved #RSV positive (acute tracheobronchitis) #MRSA bacteremia Oxygen therapy as needed Cardiology on board, appreciate recs Echocardiogram shows LVEF 30 to 35% GDMT: Entresto 24-26 mg OD, Aldactone 12.5 mg OD, Coreg 6.25 mg twice daily, Farxiga 5 mg p.o. daily Continue with Lasix 40 mg in a.m. and 20 mg p.o. p.m. Fluid restrictions, I's and O's and daily weights Initial blood culture positive for MRSA infection Repeat blood culture positive for MRSA infection Repeat blood culture Continue IV vancomycin per pharmacy dosing, monitor renal function Discontinue IV Rocephin and Zithromax Procalcitonin positive, urine Legionella antigen negative, sputum culture pending DuoNebs as scheduled and [id number] SILVIANO shows no evidence of infective endocarditis #Right CVA tenderness secondary to right pyelonephritis #Stage II pressure ulcers on buttocks #Left lower extremity venous stasis ulcer #Bilateral groin rash CT abdomen and pelvis is unable to exclude pyelonephritis otherwise there is no acute process noted. Urinalysis positive for leukocyte esterase IVPB vancomycin as above Mycostatin powder and Bactroban ointment Infectious disease on board, appreciate recs Wound care on board, appreciate recs Repeat blood culture ordered on 08/09/2024 #Hypervolemic hyponatremia, resolved, #Hyperkalemia Fluid restriction 1500 mL Monitor BMP #Type 2 diabetes mellitus Accu-Cheks and insulin scale insulin Lantus 8 units subcu twice daily Humalog 7 units subcu 3 times daily with meals Monitor for hypoglycemia #Hypermagnesemia Continue monitor Hold magnesium oxide 400 mg p.o. daily Chronic: Hypertension: Entresto Hyperlipidemia: atorvastatin 40 mg GERD: Protonix 40 mg DVT prophylaxis: Lovenox 40 mg subcu daily GI prophylaxis: Protonix 40 mg F: None E: Replete as needed N: Heart healthy diet A: Ambulatory at baseline CODE STATUS: Full code Discussed with: Patient Anticipated discharge place: Pending clinical course Dictation was produced using [employer] dictation software. Please excuse any grammatical, word or spelling errors. Objective - Vital Signs Vital signs: Vital Signs Temp 98.4 F 08/10/24 09:30 Pulse 73 08/10/24 09:30 Resp 16 08/10/24 09:30 BP 110/62 08/10/24 09:30 Pulse Ox 96 08/10/24 09:30 FiO2 Intake & Output 08/09/24 08/10/24 08/10/24 18:59 06:59 18:59 Intake Total 730 50 Output Total 400 500 Balance 330 -500 50 Weight 71.2 kg Intake: IV 50 Intake, IV Titration 250 Amount Vancomycin 1,250 mg In 250 Sodium Chloride 0.9% 250 ml @ 125 mls/hr IVPB Q24H [facility] Rx#:[id number] Oral 480 Output: Urine 400 500 Other: Voiding Method Diaper Diaper Incontinent External Catheter External Catheter # Voids 2 # Bowel Movements 0 - Labs CBC & Chem 7: 08/10/24 08:39 08/10/24 08:39 Labs: Abnormal Lab Results - Last 24 Hours (Table) 08/09/24 08/09/24 08/09/24 Range/Units 11:23 16:54 19:59 RBC (3.80-5.40) m/uL Hgb (11.4-16.0) gm/dL MCHC (31.0-37.0) g/dL Neutrophils # (1.3-7.7) k/uL Lymphocytes # (1.0-4.8) k/uL Sodium (137-145) mmol/L Carbon Dioxide (22-30) mmol/L BUN (7-17) mg/dL Glucose (74-99) mg/dL POC Glucose (mg/dL) 247 H 169 H 214 H (70-110) mg/dL Calcium (8.4-10.2) mg/dL 08/10/24 08/10/24 08/10/24 Range/Units 06:24 08:39 08:39 RBC 3.50 L (3.80-5.40) m/uL Hgb 10.4 L (11.4-16.0) gm/dL MCHC 30.1 L (31.0-37.0) g/dL Neutrophils # 8.4 H (1.3-7.7) k/uL Lymphocytes # 0.5 L (1.0-4.8) k/uL Sodium 133 L (137-145) mmol/L Carbon Dioxide 21 L (22-30) mmol/L BUN 57 H (7-17) mg/dL Glucose 115 H (74-99) mg/dL POC Glucose (mg/dL) 208 H (70-110) mg/dL Calcium 8.1 L (8.4-10.2) mg/dL Microbiology - Last 24 Hours (Table) 08/06/24 05:28 Blood Culture Gram Stain - Final Blood Blood Culture - Final Methicillin resist S. aureus Assessment and Plan Assessment: Patient was physically seen and evaluated by me. I agree with the findings and management plan as documented above. Celia Cedillo MD
[2024-08-10 16:41] LABS: Glucose,Whole Blood 140 mg/dL (70-110)
--- NOTE | 2024-08-10 17:13 | P.PN ---
Subjective Progress Note Date: 08/10/24 Principal diagnosis: Reason for follow-up is RSV and MRSA bacteremia Patient is a 84-year-old female with a past medical history significant for Coronary Artery Disease (CAD), Heart Failure, Dementia, Diabetes Mellitus, Hypertension, Myocardial Infarction ([place]), Pneumonia, Vascular Disorder coming to the ER concerning for generalized weakness fever and chills, patient tested positive for RSV did have a chest x-ray pulmonary vascular congestion cardiomegaly subsequently blood cultures came back positive with MRSA. On today's evaluation that is 08/10/2024, patient has been afebrile, patient is breathing comfortably and is currently on room air, patient denies having any significant cough no chest pain, patient denies nausea vomiting or diarrhea and no abdominal pain. Patient white was 9.6, creatinine 0.92 Vanco trough is 19.8 blood culture from 08/09/2024 so far negative Objective - Vital Signs Vital signs: Vital Signs Temp 98.4 F 08/10/24 09:30 Pulse 73 08/10/24 09:30 Resp 16 08/10/24 09:30 BP 110/62 08/10/24 09:30 Pulse Ox 96 08/10/24 09:30 FiO2 Intake & Output 08/09/24 08/10/24 08/10/24 18:59 06:59 18:59 Intake Total 730 50 Output Total 400 500 Balance 330 -500 50 Weight 71.2 kg Intake: IV 50 Intake, IV Titration 250 Amount Vancomycin 1,250 mg In 250 Sodium Chloride 0.9% 250 ml @ 125 mls/hr IVPB Q24H [facility] Rx#:[id number] Oral 480 Output: Urine 400 500 Other: Voiding Method Diaper Diaper Incontinent External Catheter External Catheter # Voids 2 # Bowel Movements 0 - Exam GENERAL DESCRIPTION: An elderly female lying in bed in no distress RESPIRATORY SYSTEM: Unlabored breathing , coarse breath sounds bilaterally HEART: S1 S2 regular rate and rhythm , ABDOMEN: Soft , no tenderness Patient did have a stage II pressure ulcer bilateral gluteal area but no cellulitis - Labs CBC & Chem 7: 08/10/24 08:39 08/10/24 08:39 Labs: Abnormal Lab Results - Last 24 Hours (Table) 08/09/24 08/09/24 08/10/24 Range/Units 16:54 19:59 06:24 RBC (3.80-5.40) m/uL Hgb (11.4-16.0) gm/dL MCHC (31.0-37.0) g/dL Neutrophils # (1.3-7.7) k/uL Lymphocytes # (1.0-4.8) k/uL Sodium (137-145) mmol/L Carbon Dioxide (22-30) mmol/L BUN (7-17) mg/dL Glucose (74-99) mg/dL POC Glucose (mg/dL) 169 H 214 H 208 H (70-110) mg/dL Calcium (8.4-10.2) mg/dL 08/10/24 08/10/24 08/10/24 Range/Units 08:39 08:39 11:41 RBC 3.50 L (3.80-5.40) m/uL Hgb 10.4 L (11.4-16.0) gm/dL MCHC 30.1 L (31.0-37.0) g/dL Neutrophils # 8.4 H (1.3-7.7) k/uL Lymphocytes # 0.5 L (1.0-4.8) k/uL Sodium 133 L (137-145) mmol/L Carbon Dioxide 21 L (22-30) mmol/L BUN 57 H (7-17) mg/dL Glucose 115 H (74-99) mg/dL POC Glucose (mg/dL) 136 H (70-110) mg/dL Calcium 8.1 L (8.4-10.2) mg/dL Microbiology - Last 24 Hours (Table) 08/09/24 02:46 Blood Culture - Preliminary Blood 08/09/24 01:45 Urine Culture - Final Urine,Voided 08/06/24 05:28 Blood Culture Gram Stain - Final Blood Blood Culture - Final Methicillin resist S. aureus Assessment and Plan (1) Leukocytosis Current Visit: Yes Status: Acute Code(s): D72.829 - ELEVATED WHITE BLOOD CELL COUNT, UNSPECIFIED SNOMED Code(s): 583932420 (2) RSV (acute bronchiolitis due to respiratory syncytial virus) Current Visit: Yes Status: Acute Code(s): J21.0 - ACUTE BRONCHIOLITIS DUE TO RESPIRATORY SYNCYTIAL VIRUS SNOMED Code(s): 913184595 (3) MRSA bacteremia Current Visit: Yes Status: Acute Code(s): R78.81 - BACTEREMIA; B95.62 - METHICILLIN RESIS STAPH INFCT CAUSING DISEASES CLASSD ELSWHR SNOMED Code(s): 41617221952008637 Plan: 1patient presented to hospital with generalized weakness fever and chills has been diagnosed with RSV chest x-ray is mostly pulmonary vascular congestion CT abdominal pelvis did not show any acute intra-abdominal process and UA was not significantly positive 2-patient did have bilateral stage II gluteal pressure ulcer but no evidence of any cellulitis 3-patient with a positive blood culture with MRSA source likely pulmonary 4-blood cultures repeat also came back positive concerning for possible endovascular source, SILVIANO did not show any evidence of vegetation but there is a pacemaker lead without any vegetation on the wire 5-patient will continue with the vancomycin once she cleared her bacteremia to get a PICC line and will advise at least 4-6 week course of IV vancomycin on discharge Dictation was produced using [employer] dictation software. please excuse any gram matical, word or spelling errors. Time with Patient: Less than 30
[2024-08-10 21:09] LABS: Glucose,Whole Blood 247 mg/dL (70-110)
[2024-08-11 06:17] LABS: Glucose,Whole Blood 153 mg/dL (70-110)
[2024-08-11] MEDS: HYDROcodone/APAP 5-325MG 1 EACH TAB PO PRN (07:58)
[2024-08-11 08:13] LABS: Basophils # (A) 0.03 X 10*3/uL (0.00-0.10); Basophils % (A) 0.3 %; Eosinophils # (A) 0.17 X 10*3/uL (0.04-0.35); Eosinophils % (A) 1.8 %; HCT 31.4 % (37.2-46.3); HGB 10.1 g/dL (12.0-15.0); Lymphocytes # (A) 0.65 X 10*3/uL (0.90-5.00); MCH 31.3 pg (27.0-32.0); MCHC 32.2 g/dL (32.0-37.0); MCV 97.2 FL (80.0-97.0); Mean Platelet Volume 10.4 FL (9.5-12.2); Monocytes # (A) 0.64 X 10*3/uL (0.20-1.00); Monocytes % (A) 6.9 %; NRBC Per 100 WBC 0 X 10*3/uL (0.00-0.01); Neutrophils # (A) 7.63 X 10*3/uL (1.80-7.70); Neutrophils % (A) 82.9 %; Platelet Count 264 X 10*3/uL (140-440); RBC 3.23 X 10*6/uL (4.10-5.20); RDW 14.1 % (11.5-14.5); WBC 9.22 X 10*3/uL (4.50-10.00)
[2024-08-11 08:57] LABS: BUN/Creat Ratio 44.18 Ratio (12.00-20.00); Blood Urea Nitrogen 48.6 mg/dL (9.0-27.0); Calcium 8.2 mg/dL (8.7-10.3); Carbon Dioxide 21.8 mmol/L (21.6-31.8); Chloride 105 mmol/L (96-109); Glucose 148 mg/dL (70-110); Potassium 4.8 mmol/L (3.5-5.5); Sodium 135 mmol/L (135-145)
[2024-08-11 12:01] LABS: Glucose,Whole Blood 354 mg/dL (70-110)
[2024-08-11 12:18] VITALS: BMI 32.9
--- NOTE | 2024-08-11 14:40 | P.PN ---
Subjective Progress Note Date: 08/11/24 Hospital Course: Patient is a 84-year-old female with history of CAD status post CABG, heart failure, dementia, type 2 diabetes, hypertension, hyperlipidemia presents to the ER with complaint of fever, chills, generalized weakness and abnormal lab work. Patient states that she is living at [facility] and since last week she has been endorsing generalized weakness associated with fever, chills and nonproductive cough. Patient reports sick contact at [facility]. Patient also reports swelling in her legs, orthopnea, PND, pain in her right flank, urgency and frequency of urination. Patient denies any chest pain, shortness of breath, recent hospitalization, recent travel. Patient reports that she had a CABG done about 5 years ago and follows cardiology on a regular basis. Patient reports no history of smoking, drinking alcohol or use of illicit drugs. Initial lab work in the ER shows WBC 19.8, hemoglobin 13.0, platelet count 331, neutrophil count 18.6, sodium 131, potassium 5.6, BUN 77, creatinine 1.04, glucose 287, calcium 10.5, NT proBNP 9600. Subsequent lab work showed WBC 32.9, neutrophil count 31.1, sodium 131, potassium 5.2, bicarb 21, BUN 78, creatinine 1.11, glucose 260, magnesium 2.5. Urinalysis shows glycosuria, ketonuria, leukocyte esterase and negative urine nitrite. Chest x-ray in the ER shows cardiomegaly, pulmonary vascular addition to bilateral pleural effusions. Echocardiogram shows ischemic cardiomyopathy with ejection fraction of about 325% with mild to moderate MR, moderate AR and mild to moderate TR with moderate pulmonary hypertension. There is a severe hypokinesia involving the anteroseptal portion as well as apical septal portion. CT abdomen and pelvis is unable to exclude pyelonephritis otherwise there is no acute process noted. Vital signs on arrival shows temperature 97.9 F, pulse rate 92, respiratory rate 16, blood pressure 148/72, oxygen saturation 98% on room air. Subsequent vital signs show temperature 98.8 F, pulse rate 87, respirate 18, blood pressure 125/76, oxygen saturation 99% 2 L via nasal cannula. SILVIANO was done this morning which showed moderate to severely impaired LV systolic function with LVEF of 30 to 35%. Moderate MR and TR with severe pulmonary hypertension. No evidence of vegetations. Subjective: Patient seen and examined at the bedside. No acute events overnight. Patient continue improving her symptoms. All Systems reviewed and pertinent positives and negatives noted in HPI, all other symptoms are negative Objective: Physical examination: Vital signs reviewed General: non toxic, no distress, appears at stated age, overweight Derm: There are 2 stage II ulcers on the left buttock and 1 stage II ulcer on the right buttock, bilateral groin rash, nonpurulent ulcerated lesion on left lower extremity, Head: atraumatic, normocephalic, symmetric Eyes: EOMI, no lid lag, anicteric sclera, pupils equal round reactive to light ENT: Nose and ears atraumatic Neck: No cervical lymphadenopathy, trachea midline, supple Mouth: no lip lesion, mucus membranes moist Cardiovascular: S1S2 reg, no murmur, positive dorsalis pedis pulse bilateral, bilateral 1+ pitting edema LE Lungs: Diffuse bilateral wheezing with bibasilar crackles noted Abdominal: soft, nontender to palpation, no guarding, right CVA tenderness Ext: muscle strength 5 out of 5 in all 4 extremities grossly, no gross muscle atrophy, no contractures, Neuro: CN II-XI grossly intact, no gross focal neuro deficits Psych: Alert, oriented, appropriate affect Data reviewed today: Pertinent Labs: WBC 9.2, hemoglobin 10.1, sodium 135, potassium 4.8, BUN 48.6, creatinine 1.1, calcium 8.2 Pertinent imaging: No new imaging today. Assessment and Plan: # Acute on chronic systolic CHF exacerbation, resolved #Acute hypoxemic respiratory failure secondary to CHF exacerbation, resolved #Ischemic cardiomyopathy with ejection fraction of 30 to 35% status post biventricular ICD #community-acquired pneumonia, resolved #RSV positive (acute tracheobronchitis) #MRSA bacteremia Oxygen therapy as needed Cardiology on board, appreciate recs Echocardiogram shows LVEF 30 to 35% GDMT: Entresto 24-26 mg OD, Aldactone 12.5 mg OD, Coreg 6.25 mg twice daily, Farxiga 5 mg p.o. daily Continue with Lasix 40 mg in a.m. and 20 mg p.o. p.m. Fluid restrictions, I's and O's and daily weights Initial blood culture positive for MRSA infection Repeat blood culture positive for MRSA infection Repeat blood culture Continue IV vancomycin per pharmacy dosing, monitor renal function Discontinue IV Rocephin and Zithromax Procalcitonin positive, urine Legionella antigen negative, sputum culture pending DuoNebs as scheduled and [id number] SILVIANO shows no evidence of infective endocarditis #Right CVA tenderness secondary to right pyelonephritis #Stage II pressure ulcers on buttocks #Left lower extremity venous stasis ulcer #Bilateral groin rash CT abdomen and pelvis is unable to exclude pyelonephritis otherwise there is no acute process noted. Urinalysis positive for leukocyte esterase IVPB vancomycin as above Mycostatin powder and Bactroban ointment Infectious disease on board, appreciate recs, note reviewed, PICC line and IV antibiotic for 4 to 6 weeks on discharge Wound care on board, appreciate recs Repeat blood culture ordered on 08/09/2024 #Hypervolemic hyponatremia, resolved, #Hyperkalemia, resolved Fluid restriction 1500 mL Monitor BMP #Type 2 diabetes mellitus Accu-Cheks and insulin scale insulin Lantus 8 units subcu twice daily Humalog 7 units subcu 3 times daily with meals Monitor for hypoglycemia #Hypermagnesemia Continue monitor Hold magnesium oxide 400 mg p.o. daily Chronic: Hypertension: Entresto Hyperlipidemia: atorvastatin 40 mg GERD: Protonix 40 mg DVT prophylaxis: Lovenox 40 mg subcu daily GI prophylaxis: Protonix 40 mg F: None E: Replete as needed N: Heart healthy diet A: Ambulatory at baseline CODE STATUS: Full code Discussed with: Patient Anticipated discharge place: Pending clinical course Dictation was produced using [employer] dictation software. Please excuse any grammatical, word or spelling errors. Attestation/ Spoon Maker Note: Attestation to Progress Note, Participation I saw and evaluated the patient with the Resident, and I reviewed and discussed the patient with the Resident and agree with the Resident's findings and plans as documented above., management reviewed and discussed, I agree with findings & plan, Provider Signature ROBERTO OGDEN MD . Objective - Vital Signs Vital signs: Vital Signs Temp 98.3 F 08/11/24 07:30 Pulse 85 08/11/24 07:30 Resp 17 08/11/24 07:30 BP 136/62 08/11/24 07:30 Pulse Ox 93 L 08/11/24 07:30 FiO2 Intake & Output 08/10/24 08/11/24 08/11/24 18:59 06:59 18:59 Intake Total 1020 370 Output Total 1400 Balance -380 370 Weight 74 kg 74 kg Intake: IV 50 Intake, IV Titration 250 250 Amount Vancomycin 1,250 mg In 250 250 Sodium Chloride 0.9% 250 ml @ 125 mls/hr IVPB Q24H [facility] Rx#:[id number] Oral 720 120 Output: Urine 1400 Other: Voiding Method Incontinent Incontinent Incontinent External Catheter External Catheter External Catheter - Labs CBC & Chem 7: 08/12/24 03:23 08/12/24 03:23 Labs: Abnormal Lab Results - Last 24 Hours (Table) 08/10/24 08/10/24 08/11/24 Range/Units 16:40 21:06 03:34 RBC 3.23 L (4.10-5.20) X 10*6/uL Hgb 10.1 L (12.0-15.0) g/dL Hct 31.4 L (37.2-46.3) % MCV 97.2 H (80.0-97.0) FL Immature Gran # 0.10 H (0.00-0.04) X 10*3/uL Lymphocytes # 0.65 L (0.90-5.00) X 10*3/uL BUN (9.0-27.0) mg/dL Est GFR (CKD-EPI) (>=60) BUN/Creatinine Ratio (12.00-20.00) Ratio Glucose (70-110) mg/dL POC Glucose (mg/dL) 140 H 247 H (70-110) mg/dL Calcium (8.7-10.3) mg/dL 08/11/24 08/11/24 08/11/24 Range/Units 03:34 06:13 11:56 RBC (4.10-5.20) X 10*6/uL Hgb (12.0-15.0) g/dL Hct (37.2-46.3) % MCV (80.0-97.0) FL Immature Gran # (0.00-0.04) X 10*3/uL Lymphocytes # (0.90-5.00) X 10*3/uL BUN 48.6 H (9.0-27.0) mg/dL Est GFR (CKD-EPI) 50 L (>=60) BUN/Creatinine Ratio 44.18 H (12.00-20.00) Ratio Glucose 148 H (70-110) mg/dL POC Glucose (mg/dL) 153 H 354 H (70-110) mg/dL Calcium 8.2 L (8.7-10.3) mg/dL Microbiology - Last 24 Hours (Table) 08/09/24 02:46 Blood Culture - Preliminary Blood 08/09/24 01:45 Urine Culture - Final Urine,Voided
--- NOTE | 2024-08-11 15:19 | P.PN ---
Subjective Progress Note Date: 08/11/24 Principal diagnosis: Reason for follow-up is RSV and MRSA bacteremia Patient is a 84-year-old female with a past medical history significant for Coronary Artery Disease (CAD), Heart Failure, Dementia, Diabetes Mellitus, Hypertension, Myocardial Infarction ([place]), Pneumonia, Vascular Disorder coming to the ER concerning for generalized weakness fever and chills, patient tested positive for RSV did have a chest x-ray pulmonary vascular congestion cardiomegaly subsequently blood cultures came back positive with MRSA. On today's evaluation that is 08/11/2024, Patient is afebrile this morning patient denies having any chest pain shortness of breath or cough, the patient is currently on room air, patient denies any abdominal pain no diarrhea no nausea no vomiting. Patient white count 9.22, creatinine is 1.1 blood culture from 08/09/2024 so far negative Objective - Vital Signs Vital signs: Vital Signs Temp 98.3 F 08/11/24 07:30 Pulse 85 08/11/24 07:30 Resp 17 08/11/24 07:30 BP 136/62 08/11/24 07:30 Pulse Ox 93 L 08/11/24 07:30 FiO2 Intake & Output 08/10/24 08/11/24 08/11/24 18:59 06:59 18:59 Intake Total 1020 370 Output Total 1400 Balance -380 370 Weight 74 kg 74 kg Intake: IV 50 Intake, IV Titration 250 250 Amount Vancomycin 1,250 mg In 250 250 Sodium Chloride 0.9% 250 ml @ 125 mls/hr IVPB Q24H [facility] Rx#:[id number] Oral 720 120 Output: Urine 1400 Other: Voiding Method Incontinent Incontinent Incontinent External Catheter External Catheter External Catheter - Exam GENERAL DESCRIPTION: An elderly female lying in bed in no distress RESPIRATORY SYSTEM: Unlabored breathing , coarse breath sounds bilaterally HEART: S1 S2 regular rate and rhythm , ABDOMEN: Soft , no tenderness Patient did have a stage II pressure ulcer bilateral gluteal area but no cellulitis - Labs CBC & Chem 7: 08/11/24 03:34 08/11/24 03:34 Labs: Abnormal Lab Results - Last 24 Hours (Table) 08/10/24 08/10/24 08/11/24 Range/Units 16:40 21:06 03:34 RBC 3.23 L (4.10-5.20) X 10*6/uL Hgb 10.1 L (12.0-15.0) g/dL Hct 31.4 L (37.2-46.3) % MCV 97.2 H (80.0-97.0) FL Immature Gran # 0.10 H (0.00-0.04) X 10*3/uL Lymphocytes # 0.65 L (0.90-5.00) X 10*3/uL BUN (9.0-27.0) mg/dL Est GFR (CKD-EPI) (>=60) BUN/Creatinine Ratio (12.00-20.00) Ratio Glucose (70-110) mg/dL POC Glucose (mg/dL) 140 H 247 H (70-110) mg/dL Calcium (8.7-10.3) mg/dL 08/11/24 08/11/24 08/11/24 Range/Units 03:34 06:13 11:56 RBC (4.10-5.20) X 10*6/uL Hgb (12.0-15.0) g/dL Hct (37.2-46.3) % MCV (80.0-97.0) FL Immature Gran # (0.00-0.04) X 10*3/uL Lymphocytes # (0.90-5.00) X 10*3/uL BUN 48.6 H (9.0-27.0) mg/dL Est GFR (CKD-EPI) 50 L (>=60) BUN/Creatinine Ratio 44.18 H (12.00-20.00) Ratio Glucose 148 H (70-110) mg/dL POC Glucose (mg/dL) 153 H 354 H (70-110) mg/dL Calcium 8.2 L (8.7-10.3) mg/dL Microbiology - Last 24 Hours (Table) 08/09/24 02:46 Blood Culture - Preliminary Blood Assessment and Plan (1) Leukocytosis Current Visit: Yes Status: Acute Code(s): D72.829 - ELEVATED WHITE BLOOD CELL COUNT, UNSPECIFIED SNOMED Code(s): 851087235 (2) RSV (acute bronchiolitis due to respiratory syncytial virus) Current Visit: Yes Status: Acute Code(s): J21.0 - ACUTE BRONCHIOLITIS DUE TO RESPIRATORY SYNCYTIAL VIRUS SNOMED Code(s): 748428593 (3) MRSA bacteremia Current Visit: Yes Status: Acute Code(s): R78.81 - BACTEREMIA; B95.62 - MET HICILLIN RESIS STAPH INFCT CAUSING DISEASES CLASSD ELSWHR SNOMED Code(s): 37353003021840402 Plan: 1patient presented to hospital with generalized weakness fever and chills has been diagnosed with RSV chest x-ray is mostly pulmonary vascular congestion CT abdominal pelvis did not show any acute intra-abdominal process and UA was not significantly positive 2-patient did have bilateral stage II gluteal pressure ulcer but no evidence of any cellulitis 3-patient with a positive blood culture with MRSA source likely pulmonary 4-blood cultures repeat also came back positive concerning for possible endovascular source, SILVIANO did not show any evidence of vegetation but there is a pacemaker lead without any vegetation on the wire 5-if the blood pressure on 08/09/2024 remains to be negative by tomorrow patient should be able to get a PICC line and will advise at least 4-6 week course of IV vancomycin on discharge this was discussed with the resident physician Dictation was produced using [employer] dictation software. please excuse any gram matical, word or spelling errors. Time with Patient: Less than 30
[2024-08-11 16:36] LABS: Glucose,Whole Blood 175 mg/dL (70-110)
[2024-08-11 20:48] LABS: Glucose,Whole Blood 97 mg/dL (70-110)
[2024-08-12 06:09] LABS: Glucose,Whole Blood 137 mg/dL (70-110)
[2024-08-12] MEDS: ENOXAPARIN 30 MG/0.3 ML SYRINGE SQ SCH (08:09)
[2024-08-12 08:33] LABS: Blood Urea Nitrogen 36.3 mg/dL (9.0-27.0); Calcium 8.3 mg/dL (8.7-10.3); Carbon Dioxide 20.6 mmol/L (21.6-31.8); Chloride 105 mmol/L (96-109); Glucose 118 mg/dL (70-110); Potassium 4.4 mmol/L (3.5-5.5); Sodium 137 mmol/L (135-145)
[2024-08-12 09:16] LABS: Basophils # (A) 0.04 X 10*3/uL (0.00-0.10); Basophils % (A) 0.4 %; Eosinophils # (A) 0.12 X 10*3/uL (0.04-0.35); Eosinophils % (A) 1.3 %; HGB 9.7 g/dL (12.0-15.0); Lymphocytes # (A) 0.74 X 10*3/uL (0.90-5.00); Lymphocytes % (A) 8.3 %; MCH 30.4 pg (27.0-32.0); MCHC 30.3 g/dL (32.0-37.0); MCV 100.3 FL (80.0-97.0); Mean Platelet Volume 10.3 FL (9.5-12.2); Monocytes # (A) 0.61 X 10*3/uL (0.20-1.00); Monocytes % (A) 6.8 %; NRBC Per 100 WBC 0.02 X 10*3/uL (0.00-0.01); Neutrophils # (A) 7.34 X 10*3/uL (1.80-7.70); Neutrophils % (A) 82.1 %; Platelet Count 262 X 10*3/uL (140-440); RBC 3.19 X 10*6/uL (4.10-5.20); WBC 8.95 X 10*3/uL (4.50-10.00)
[2024-08-12 12:13] LABS: Glucose,Whole Blood 318 mg/dL (70-110)
[2024-08-12 16:42] LABS: Glucose,Whole Blood 180 mg/dL (70-110)
--- NOTE | 2024-08-12 17:25 | P.PN ---
Subjective Progress Note Date: 08/12/24 Principal diagnosis: Reason for follow-up is RSV and MRSA bacteremia Patient is a 84-year-old female with a past medical history significant for Coronary Artery Disease (CAD), Heart Failure, Dementia, Diabetes Mellitus, Hypertension, Myocardial Infarction ([place]), Pneumonia, Vascular Disorder coming to the ER concerning for generalized weakness fever and chills, patient tested positive for RSV did have a chest x-ray pulmonary vascular congestion cardiomegaly subsequently blood cultures came back positive with MRSA. On today's evaluation that is 08/12/2024,the patient denies any fever or any chills, patient is breathing comfortably on room air, the patient denies chest pain shortness of breath and no significant cough, patient denies abdominal pain, no nausea vomiting or diarrhea. White count is 8.95, creatinine is 1.0, blood Cultures from 08/09/2024 so far neg ative Objective - Vital Signs Vital signs: Vital Signs Temp 98.3 F 08/12/24 02:20 Pulse 85 08/12/24 02:20 Resp 17 08/12/24 02:20 BP 124/62 08/12/24 02:20 Pulse Ox 91 L 08/12/24 02:20 FiO2 Intake & Output 08/11/24 08/12/24 08/12/24 18:59 06:59 18:59 Intake Total 610 Output Total 800 400 Balance -190 -400 Weight 74 kg 71.5 kg Intake: Intake, IV Titration 250 Amount Vancomycin 1,250 mg In 250 Sodium Chloride 0.9% 250 ml @ 125 mls/hr IVPB Q24H [facility] Rx#:[id number] Oral 360 Output: Urine 800 400 Other: Voiding Method Incontinent Incontinent Incontinent External Catheter External Catheter External Catheter # Voids 1 # Bowel Movements 0 - Exam GENERAL DESCRIPTION: An elderly female lying in bed in no distress RESPIRATORY SYSTEM: Unlabored breathing , coarse breath sounds bilaterally HEART: S1 S2 regular rate and rhythm , ABDOMEN: Soft , no tenderness Patient did have a stage II pressure ulcer bilateral gluteal area but no cellulitis - Labs CBC & Chem 7: 08/12/24 03:23 08/12/24 03:23 Labs: Abnormal Lab Results - Last 24 Hours (Table) 08/11/24 08/12/24 08/12/24 Range/Units 16:33 03:23 03:23 RBC 3.19 L (4.10-5.20) X 10*6/uL Hgb 9.7 L (12.0-15.0) g/dL Hct 32.0 L (37.2-46.3) % MCV 100.3 H (80.0-97.0) FL MCHC 30.3 L (32.0-37.0) g/dL Immature Gran # 0.10 H (0.00-0.04) X 10*3/uL Lymphocytes # 0.74 L (0.90-5.00) X 10*3/uL NRBC/100 WBC Diff 0.02 H (0.00-0.01) X 10*3/uL Carbon Dioxide 20.6 L (21.6-31.8) mmol/L BUN 36.3 H (9.0-27.0) mg/dL Est GFR (CKD-EPI) 56 L (>=60) BUN/Creatinine Ratio 36.30 H (12.00-20.00) Ratio Glucose 118 H (70-110) mg/dL POC Glucose (mg/dL) 175 H (70-110) mg/dL Calcium 8.3 L (8.7-10.3) mg/dL 08/12/24 08/12/24 Range/Units 06:08 12:11 RBC (4.10-5.20) X 10*6/uL Hgb (12.0-15.0) g/dL Hct (37.2-46.3) % MCV (80.0-97.0) FL MCHC (32.0-37.0) g/dL Immature Gran # (0.00-0.04) X 10*3/uL Lymphocytes # (0.90-5.00) X 10*3/uL NRBC/100 WBC Diff (0.00-0.01) X 10*3/uL Carbon Dioxide (21.6-31.8) mmol/L BUN (9.0-27.0) mg/dL Est GFR (CKD-EPI) (>=60) BUN/Creatinine Ratio (12.00-20.00) Ratio Glucose (70-110) mg/dL POC Glucose (mg/dL) 137 H 318 H (70-110) mg/dL Calcium (8.7-10.3) mg/dL Microbiology - Last 24 Hours (Table) 08/09/24 02:46 Blood Culture - Preliminary Blood Assessment and Plan (1) Leukocytosis Current Visit: Yes Status: Acute Code(s): D72.829 - ELEVATED WHITE BLOOD CELL COUNT, UNSPECIFIED SNOMED Code(s): 416643106 (2) RSV (acute bronchiolitis due to respiratory syncytial virus) Current Visit: Yes Status: Acute Code(s): J21.0 - ACUTE BRONCHIOLITIS DUE TO RESPIRATORY SYNCYTIAL VIRUS SNOMED Code(s): 517443561 (3) MRSA bacteremia Current Visit: Yes Status: Acute Code(s): R78.81 - BACTEREMIA; B95.62 - METHICILLIN RESIS STAPH INFCT CAUSING DISEASES CLASSD ELSWHR SNOMED Code(s): 68361845867951310 Plan: 1patient presented to hospital with generalized weakness fever and chills has been diagnosed with RSV chest x-ray is mostly pulmonary vascular congestion CT abdominal pelvis did not show any acute intra-abdominal process and UA was not significantly positive 2-patient did have bilateral stage II gluteal pressure ulcer but no evidence of any cellulitis 3-patient with a positive blood culture with MRSA source likely pulmonary 4-blood cultures repeat also came back positive concerning for possible endovascular source, SILVIANO did not show any evidence of vegetation but there is a pacemaker lead without any vegetation on the wire 5-if the blood pressure on 08/09/2024 remains to be negative by 08/13/2024 patient should be able to get a PICC line this was discussed with the resident physician 6and plan will be 4 week course of IV vancomycin on discharge, care has been discussed with the family the bedside Dictation was produced using [employer] dictation software. please excuse any grammatical, word or spelling errors. Time with Patient: Less than 30
--- NOTE | 2024-08-12 18:49 | P.PN ---
Subjective Progress Note Date: 08/12/24 Hospital Course: Patient is a 84-year-old female with history of CAD status post CABG, heart failure, dementia, type 2 diabetes, hypertension, hyperlipidemia presents to the ER with complaint of fever, chills, generalized weakness and abnormal lab work. Patient states that she is living at [facility] and since last week she has been endorsing generalized weakness associated with fever, chills and nonproductive cough. Patient reports sick contact at [facility]. Patient also reports swelling in her legs, orthopnea, PND, pain in her right flank, urgency and frequency of urination. Patient denies any chest pain, shortness of breath, recent hospitalization, recent travel. Patient reports that she had a CABG done about 5 years ago and follows cardiology on a regular basis. Patient reports no history of smoking, drinking alcohol or use of illicit drugs. Initial lab work in the ER shows WBC 19.8, hemoglobin 13.0, platelet count 331, neutrophil count 18.6, sodium 131, potassium 5.6, BUN 77, creatinine 1.04, glucose 287, calcium 10.5, NT proBNP 9600. Subsequent lab work showed WBC 32.9, neutrophil count 31.1, sodium 131, potassium 5.2, bicarb 21, BUN 78, creatinine 1.11, glucose 260, magnesium 2.5. Urinalysis shows glycosuria, ketonuria, leukocyte esterase and negative urine nitrite. Chest x-ray in the ER shows cardiomegaly, pulmonary vascular addition to bilateral pleural effusions. Echocardiogram shows ischemic cardiomyopathy with ejection fraction of about 325% with mild to moderate MR, moderate AR and mild to moderate TR with moderate pulmonary hypertension. There is a severe hypokinesia involving the anteroseptal portion as well as apical septal portion. CT abdomen and pelvis is unable to exclude pyelonephritis otherwise there is no acute process noted. Vital signs on arrival shows temperature 97.9 F, pulse rate 92, respiratory rate 16, blood pressure 148/72, oxygen saturation 98% on room air. Subsequent vital signs show temperature 98.8 F, pulse rate 87, respirate 18, blood pressure 125/76, oxygen saturation 99% 2 L via nasal cannula. SILVIANO showed moderate to severely impaired LV systolic function with LVEF of 30 to 35%. Moderate MR and TR with severe pulmonary hypertension. No evidence of vegetations. Subjective: Patient seen and examined at the bedside. No acute events overnight. Patient continue improving her symptoms. All Systems reviewed and pertinent positives and negatives noted in HPI, all other symptoms are negative Objective: Physical examination: Vital signs reviewed General: non toxic, no distress, appears at stated age, overweight Derm: There are 2 stage II ulcers on the left buttock and 1 stage II ulcer on the right buttock, bilateral groin rash, nonpurulent ulcerated lesion on left lower extremity, Head: atraumatic, normocephalic, symmetric Eyes: EOMI, no lid lag, anicteric sclera, pupils equal round reactive to light ENT: Nose and ears atraumatic Neck: No cervical lymphadenopathy, trachea midline, supple Mouth: no lip lesion, mucus membranes moist Cardiovascular: S1S2 reg, no murmur, positive dorsalis pedis pulse bilateral, bilateral 1+ pitting edema LE Lungs: Diffuse bilateral wheezing with bibasilar crackles noted Abdominal: soft, nontender to palpation, no guarding, right CVA tenderness Ext: muscle strength 5 out of 5 in all 4 extremities grossly, no gross muscle atrophy, no contractures, Neuro: CN II-XI grossly intact, no gross focal neuro deficits Psych: Alert, oriented, appropriate affect Data reviewed today: Pertinent Labs: WBC 8.95, hemoglobin 9.7, platelet count 262, sodium 137, potassium 4.4, BUN 36.3, creatinine 1.0, glucose 118, calcium 8.3 Pertinent imaging: No new imaging today. Assessment and Plan: # Acute on chronic systolic CHF exacerbation #Acute hypoxemic respiratory failure secondary to CHF exacerbation #Ischemic cardiomyopathy with ejection fraction of 30 to 35% status post biventricular ICD #community-acquired pneumonia, resolved #RSV positive (acute tracheobronchitis) #MRSA bacteremia Oxygen therapy as needed Cardiology on board, appreciate recs Echocardiogram shows LVEF 30 to 35% GDMT: Entresto 24-26 mg OD, Aldactone 12.5 mg OD, Coreg 6.25 mg twice daily, Farxiga 5 mg p.o. daily Continue with Lasix 40 mg in a.m. and 20 mg p.o. p.m. Fluid restrictions, I's and O's and daily weights Initial blood culture positive for MRSA infection Repeat blood culture positive for MRSA infection Repeat blood culture Continue IV vancomycin per pharmacy dosing, monitor renal function Discontinue IV Rocephin and Zithromax Procalcitonin positive, urine Legionella antigen negative, sputum culture pending DuoNebs as scheduled and [id number] SILVIANO shows no evidence of infective endocarditis #Right CVA tenderness secondary to right pyelonephritis #Stage II pressure ulcers on buttocks #Left lower extremity venous stasis ulcer #Bilateral groin rash CT abdomen and pelvis is unable to exclude pyelonephritis otherwise there is no acute process noted. Urinalysis positive for leukocyte esterase IVPB vancomycin as above Mycostatin powder and Bactroban ointment Infectious disease on board, appreciate recs, note reviewed, PICC line and IV antibiotic for 4 to 6 weeks on discharge Wound care on board, appreciate recs Repeat blood culture ordered on 08/09/2024 #Hypervolemic hyponatremia, resolved, #Hyperkalemia, resolved Fluid restriction 1500 mL Monitor BMP #Type 2 diabetes mellitus Accu-Cheks and insulin scale insulin Lantus 8 units subcu twice daily Humalog 7 units subcu 3 times daily with meals Monitor for hypoglycemia #Hypermagnesemia Continue monitor Hold magnesium oxide 400 mg p.o. daily Chronic: Hypertension: Entresto Hyperlipidemia: atorvastatin 40 mg GERD: Protonix 40 mg DVT prophylaxis: Lovenox 40 mg subcu daily GI prophylaxis: Protonix 40 mg F: None E: Replete as needed N: Heart healthy diet A: Ambulatory at baseline CODE STATUS: Full code Discussed with: Patient Anticipated discharge place: Pending clinical course Dictation was produced using [employer] dictation software. Please excuse any gra mmatical, word or spelling errors. Attestation/ Care Management Assistant Note: Attestation to Progress Note, Participation I saw and evaluated the patient with the Resident, and I reviewed and discussed the patient with the Resident and agree with the Resident's findings and plans as documented above., management reviewed and discussed, I agree with findings & plan, Provider Signature ROBERTO OGDEN MD . Objective - Vital Signs Vital signs: Vital Signs Temp 99.1 F 08/12/24 14:17 Pulse 85 08/12/24 14:17 Resp 18 08/12/24 14:17 BP 137/70 08/12/24 16:59 Pulse Ox 91 L 08/12/24 02:20 FiO2 Intake & Output 08/11/24 08/12/24 08/12/24 18:59 06:59 18:59 Intake Total 610 Output Total 800 400 Balance -190 -400 Weight 74 kg 71.5 kg Intake: Intake, IV Titration 250 Amount Vancomycin 1,250 mg In 250 Sodium Chloride 0.9% 250 ml @ 125 mls/hr IVPB Q24H [facility] Rx#:[id number] Oral 360 Output: Urine 800 400 Other: Voiding Method Incontinent Incontinent Incontinent External Catheter External Catheter External Catheter # Voids 1 1,200 # Bowel Movements 0 0 - Labs CBC & Chem 7: 08/12/24 03:23 08/12/24 03:23 Labs: Abnormal Lab Results - Last 24 Hours (Table) 08/12/24 08/12/24 08/12/24 Range/Units 03:23 03:23 06:08 RBC 3.19 L (4.10-5.20) X 10*6/uL Hgb 9.7 L (12.0-15.0) g/dL Hct 32.0 L (37.2-46.3) % MCV 100.3 H (80.0-97.0) FL MCHC 30.3 L (32.0-37.0) g/dL Immature Gran # 0.10 H (0.00-0.04) X 10*3/uL Lymphocytes # 0.74 L (0.90-5.00) X 10*3/uL NRBC/100 WBC Diff 0.02 H (0.00-0.01) X 10*3/uL Carbon Dioxide 20.6 L (21.6-31.8) mmol/L BUN 36.3 H (9.0-27.0) mg/dL Est GFR (CKD-EPI) 56 L (>=60) BUN/Creatinine Ratio 36.30 H (12.00-20.00) Ratio Glucose 118 H (70-110) mg/dL POC Glucose (mg/dL) 137 H (70-110) mg/dL Calcium 8.3 L (8.7-10.3) mg/dL 08/12/24 08/12/24 Range/Units 12:11 16:40 RBC (4.10-5.20) X 10*6/uL Hgb (12.0-15.0) g/dL Hct (37.2-46.3) % MCV (80.0-97.0) FL MCHC (32.0-37.0) g/dL Immature Gran # (0.00-0.04) X 10*3/uL Lymphocytes # (0.90-5.00) X 10*3/uL NRBC/100 WBC Diff (0.00-0.01) X 10*3/uL Carbon Dioxide (21.6-31.8) mmol/L BUN (9.0-27.0) mg/dL Est GFR (CKD-EPI) (>=60) BUN/Creatinine Ratio (12.00-20.00) Ratio Glucose (70-110) mg/dL POC Glucose (mg/dL) 318 H 180 H (70-110) mg/dL Calcium (8.7-10.3) mg/dL Microbiology - Last 24 Hours (Table) 08/09/24 02:46 Blood Culture - Preliminary Blood
[2024-08-12 20:13] LABS: Prothrombin Time 11.1 sec (10.0-12.5)
[2024-08-12 20:47] LABS: Glucose,Whole Blood 121 mg/dL (70-110)
[2024-08-13 06:08] LABS: Glucose,Whole Blood 125 mg/dL (70-110)
[2024-08-13 11:30] LABS: Glucose,Whole Blood 251 mg/dL (70-110)
--- NOTE | 2024-08-13 14:21 | P.PN ---
Subjective Progress Note Date: 08/13/24 Principal diagnosis: Reason for follow-up is RSV and MRSA bacteremia Patient is a 84-year-old female with a past medical history significant for Coronary Artery Disease (CAD), Heart Failure, Dementia, Diabetes Mellitus, Hypertension, Myocardial Infarction (CA), Pneumonia, Vascular Disorder coming to the ER concerning for generalized weakness fever and chills, patient tested positive for RSV did have a chest x-ray pulmonary vascular congestion cardiomegaly subsequently blood cultures came back positive with MRSA. On today's evaluation that is 08/13/2024,the patient remains to be afebrile, patient is on room air not requiring supplemental oxygen and denies any sh ortness of breath no chest pain or cough.Patient denies having any nausea or vomiting, no abdominal pain and no diarrhea. No new lab has been repeated today blood culture from 08/09/2024 has been negat elizabeth Objective - Vital Signs Vital signs: Vital Signs Temp 98.9 F 08/13/24 08:20 Pulse 84 08/13/24 08:20 Resp 17 08/13/24 08:20 BP 117/62 08/13/24 08:20 Pulse Ox 91 L 08/13/24 08:20 FiO2 Intake & Output 08/12/24 08/13/24 08/13/24 18:59 06:59 18:59 Output Total 100 Balance -100 Weight 73.5 kg Output: Urine 100 Other: Voiding Method Incontinent Incontinent Incontinent External Catheter External Catheter External Catheter # Voids 1,200 # Bowel Movements 0 - Exam GENERAL DESCRIPTION: An elderly female lying in bed in no distress RESPIRATORY SYSTEM: Unlabored breathing , coarse breath sounds bilaterally HEART: S1 S2 regular rate and rhythm , ABDOMEN: Soft , no tenderness Patient did have a stage II pressure ulcer bilateral gluteal area but no cellulitis - Labs CBC & Chem 7: 08/12/24 03:23 08/12/24 03:23 Labs: Abnormal Lab Results - Last 24 Hours (Table) 08/12/24 08/12/24 08/12/24 Range/Units 12:11 16:40 20:45 POC Glucose (mg/dL) 318 H 180 H 121 H (70-110) mg/dL 08/13/24 08/13/24 Range/Units 06:07 11:28 POC Glucose (mg/dL) 125 H 251 H (70-110) mg/dL Microbiology - Last 24 Hours (Table) 08/09/24 02:46 Blood Culture - Preliminary Blood Assessment and Plan (1) Leukocytosis Current Visit: Yes Status: Acute Code(s): D72.829 - ELEVATED WHITE BLOOD CELL COUNT, UNSPECIFIED SNOMED Code(s): 059285900 (2) RSV (acute bronchiolitis due to respiratory syncytial virus) Current Visit: Yes Status: Acute Code(s): J21.0 - ACUTE BRONCHIOLITIS DUE TO RESPIRATORY SYNCYTIAL VIRUS SNOMED Code(s): 121429913 (3) MRSA bacteremia Current Visit: Yes Status: Acute Code(s): R78.81 - BACTEREMIA; B95.62 - METHICILLIN RESIS STAPH INFCT CAUSING DISEASES CLASSD [id number] SNOMED Code(s): 93211181949143035 Plan: 1patient presented to hospital with generalized weakness fever and chills has been diagnosed with RSV chest x-ray is mostly pulmonary vascular congestion CT abdominal pelvis did not show any acute intra-abdominal process and UA was not significantly positive 2-patient did have bilateral stage II gluteal pressure ulcer but no evidence of any cellulitis 3-patient with a positive blood culture with MRSA source likely pulmonary 4-blood cultures repeat also came back positive concerning for possible endovascular source, SILVIANO did not show any evidence of vegetation but there is a pacemaker lead without any vegetation on the wire 5-patient blood culture from 08/09/2024 has been negative and she did get a PICC line she will continue with the vancomycin to finish a 4-week course of therapy and close outpatient follow-up Dictation was produced using [employer] dictation software. please excuse any grammatical, word or spelling errors. Time with Patient: Less than 30
--- NOTE | 2024-08-13 15:06 | P.DS ---
Providers Date of admission: 08/03/24 21:43 Attending physician: Debi Núñez Consults: 08/04/24 08:24 Consult Physician Urgent Consulting Provider: Suhas Ortiz Consult Reason/Comments: CHF Do you want consulting provider notified?: Yes 08/04/24 14:26 Consult Physician Urgent Consulting Provider: Kate Oliver Consult Reason/Comments: pyelonephritis, pressure ulcers Do you want consulting provider notified?: Yes Primary care physician: Faraz Loza Hospital Course: Discharge Diagnosis: #Acute on chronic systolic heart failure exacerbation, resolved #Acute hypoxemic respiratory failure secondary to CHF exacerbation, resolved #Ischemic cardiomyopathy with ejection fraction of 30 to 35% status post biventricular ICD #Suspected community-acquired pneumonia #Acute tracheobronchitis secondary to RSV #MRSA bacteremia, unknown source #Right CVA tenderness secondary to right pyelonephritis #Stage II pressure ulcers on buttocks #Left lower extremity venous stasis ulcer #Bilateral groin rash, resolved #Hypervolemic hyponatremia, resolved, #Hyperkalemia, resolved #Type 2 diabetes mellitus #Hypermagnesemia, resolved Hospital Course: Patient is a 84-year-old female with history of CAD status post CABG, heart failure, dementia, type 2 diabetes, hypertension, hyperlipidemia presents to the ER with complaint of fever, chills, generalized weakness and abnormal lab work. Patient states that she is living at [facility] and since last week she has been endorsing generalized weakness associated with fever, chills and nonproductive cough. Patient reports sick contact at [facility]. Patient also reports swelling in her legs, orthopnea, PND, pain in her right flank, urgency and frequency of urination. Patient denies any chest pain, shortness of breath, recent hospitalization, recent travel. Patient reports that she had a CABG done about 5 years ago and follows cardiology on a regular basis. Patient reports no history of smoking, drinking alcohol or use of illicit drugs. Initial lab work in the ER shows WBC 19.8, hemoglobin 13.0, platelet count 331, neutrophil count 18.6, sodium 131, potassium 5.6, BUN 77, creatinine 1.04, glucose 287, calcium 10.5, NT proBNP 9600. Subsequent lab work showed WBC 32.9, neutrophil count 31.1, sodium 131, potassium 5.2, bicarb 21, BUN 78, creatinine 1.11, glucose 260, magnesium 2.5. Urinalysis shows glycosuria, ketonuria, leukocyte esterase and negative urine nitrite. Chest x-ray in the ER shows cardiomegaly, pulmonary vascular addition to bilateral pleural effusions. Transthoracic echocardiogram shows ischemic cardiomyopathy with ejection fraction of about 30 to 35% with mild to moderate MR, moderate AR and mild to moderate TR with moderate pulmonary hypertension. There is a severe hypokinesia involving the anteroseptal portion as well as apical septal portion. CT abdomen and pelvis is unable to exclude pyelonephritis otherwise there is no acute process noted. Vital signs on arrival shows temperature 97.9 F, pulse rate 92, respiratory rate 16, blood pressure 148/72, oxygen saturation 98% on room air. Subsequent vital signs show temperature 98.8 F, pulse rate 87, respirate 18, blood pressure 125/76, oxygen saturation 99% 2 L via nasal cannula. Cardiology was consulted. Infectious disease was consulted. Patient started on IV vancomycin based on positive blood culture which showed MRSA. Repeat blood culture showed MRSA. SILVIANO was done to investigate endovascular source for bacteremia since patient has ICD. SILVIANO showed moderate to severely impaired LV systolic function with LVEF of 30 to 35%. Moderate MR and TR with severe pulmonary hypertension. No evidence of vegetations. Repeat blood culture showed no bacterial growth. Patient continue improving her symptoms. White blood cell counts continue to trend down. Patient is more awake alert and oriented. Patient received PICC line and will continue getting IV antibiotic with vancomycin for 4 weeks. Patient otherwise hemodynamically stable and medically optimized for discharge to [facility]. Patient to continue with fluid restriction 1.5 L/day. Patient to follow-up with PCP and infectious disease. Discharge disposition: Transfer to [facility] Vital signs reviewed. General: non toxic, no distress, appears at stated age, overweight Derm: Decubitus ulcers on bilateral buttocks have improved, there is nonpurulent ulcerated lesion on left lower extremity, Head: atraumatic, normocephalic, symmetric Eyes: EOMI, no lid lag, anicteric sclera, pupils equal round reactive to light ENT: Nose and ears atraumatic Neck: No cervical lymphadenopathy, trachea midline, supple Mouth: no lip lesion, mucus membranes moist Cardiovascular: S1S2 reg, no murmur, positive dorsalis pedis pulse bilateral, bilateral 1+ pitting edema LE Lungs: Diffuse bilateral wheezing with bibasilar crackles noted Abdominal: soft, nontender to palpation, no guarding, right CVA tenderness Ext: muscle strength 5 out of 5 in all 4 extremities grossly, no gross muscle atrophy, no contractures, Neuro: CN II-XI grossly intact, no gross focal neuro deficits Psych: Alert, oriented, appropriate affect Dictation was produced using [employer] dictation software. Please excuse any grammatical, word or spelling errors. Attestation/ Automobile Service Advisor Note: Attestation to D/C Summary, Participation I saw and evaluated the patient with the Resident, and I reviewed and discussed the patient with the Resident and agree with the Resident's findings and plans as documented above, management reviewed and discussed, I agree with findings & plan, Provider Signature - ROBERTO OGDEN MD Patient Condition at Discharge: Stable Plan - Discharge Summary New Discharge Prescriptions: New Vancomycin HCl in 5 % Dextrose [Vancomycin 1.25 Gram/250Ml-D5w] 1.25 gm IV DAILY #28 each Ipratropium-Albuterol Nebulize [Duoneb 0.5 mg-3 mg/3 ml Soln] 3 ml INHALATION RT-Q4H PRN each PRN Reason: Wheezing Albuterol Nebulized [Ventolin Nebulized] 2.5 mg INHALATION RT-TID PRN ml PRN Reason: Shortness Of Breath Or Wheezing Continue Aspirin EC [Ecotrin Low Dose] 81 mg PO DAILY@0800 Donepezil [Aricept] 10 mg PO HS@2100 Benzocaine/Menthol [Dermoplast Pain Relieving [place]] 1 spray TOPICAL BID PRN PRN Reason: LEFT LEG WOUND PAIN bisacodyL [Dulcolax] 10 mg RECTAL DAILY PRN PRN Reason: Constipation Famotidine [Pepcid] 20 mg PO DAILY@0800 INSULIN ASPART (NovoLOG) [NovoLOG (formulary)] 3 unit SQ BID@1100,1700 L.acidoph,Paracasei, B.lactis [Probiotic] 1 cap PO DAILY@0800 Melatonin 3 mg PO DAILY PRN PRN Reason: Insomnia Spironolactone [Aldactone] 12.5 mg PO DAILY@0800 HYDROcodone/APAP 5-325MG [[place] 5-325] 1 tab PO Q6H PRN PRN Reason: Pain carvediloL [Coreg] 6.25 mg PO BID@0800,1700 Furosemide [Lasix] 20 mg PO DAILY@0800 Atorvastatin [Lipitor] 40 mg PO HS@2100 Eucerin Advanced Repair Cream 1 applic TOPICAL DAILY Insulin Degludec [Tresiba Flextouch U-100 Pen] 25 units SQ HS@2130 Liquacel 30 ml PO DAILY@0800 Mylanta Double Strength 174-339-99qa/5ml 10 ml PO Q4H PRN PRN Reason: Indigestion Folic Acid 0.4 mg PO DAILY@0800 guaiFENesin [guaiFENesin Oral Solution] 200 mg PO Q4H PRN PRN Reason: Cough guaiFENesin [guaiFENesin Oral Solution] 200 mg PO QID INSULIN ASPART (NovoLOG) [NovoLOG (formulary)] See Protocol SQ ACHS Ipratropium-Albuterol Nebulize [Duoneb 0.5 mg-3 mg/3 ml Soln] 3 ml INHALATION RT-Q6H PRN PRN Reason: Wheezing Lactulose 10 gm PO BID@0800,1700 Loperamide [Imodium] 2 mg PO Q6H PRN PRN Reason: Loose Stool Magnesium Hydroxide [Milk of Magnesia Concentrate] 7,200 mg PO Q2D PRN PRN Reason: Constipation Multivitamins, Thera [Multivitamin (formulary)] 1 tab PO DAILY@1700 Patiromer Calcium Sorbitex [Veltassa] 8.4 gm PO TH@1200 Semaglutide [Ozempic] 0.25 mg SQ WE@2130 Magnesium Oxide 400 mg PO DAILY@0800 Isosorbide Mononitrate ER [Imdur] 30 mg PO DAILY@0800 Ferrous Sulfate [Iron (65 MG Elemental)] 325 mg PO BID@0800,1700 Acetaminophen Tab [Tylenol] 650 mg PO Q6HR PRN tab PRN Reason: Mild Pain Or Fever > 100.5 Ondansetron [Zofran] 4 mg PO TID PRN PRN Reason: Nausea Emmanuel Packet 1 packet PO BID@0800,1700 Sacubitril/Valsartan [Entresto 24 mg-26 mg Tablet] 1 tab PO BID@0800,1700 Empagliflozin [Jardiance] 10 mg PO DAILY@0800 Lidocaine 5% Cream 1 applic TOPICAL DAILY PRN PRN Reason: wound pain allopurinoL [Zyloprim] 100 mg PO DAILY@0800 Cholecalciferol (Vitamin D3) [Vitamin D3 (50 Mcg = 2000 Iu)] 100 mcg PO DAILY@0800 Discontinued Ipratropium-Albuterol Nebulize [Duoneb 0.5 mg-3 mg/3 ml Soln] 3 ml INHALATION RT-DAILY@1700 Discharge Medication List Aspirin EC [Ecotrin Low Dose] 81 mg PO DAILY@0800 03/14/21 [History] Donepezil [Aricept] 10 mg PO HS@209903/14/21 [History] Isosorbide Mononitrate ER [Imdur] 30 mg PO DAILY@0800 03/14/21 [History] Magnesium Oxide 400 mg PO DAILY@0803/14/21 [History] Benzocaine/Menthol [Dermoplast Pain Relieving [place]] 1 spray TOPICAL BID PRN 04/16/21 [History] Ferrous Sulfate [Iron (65 MG Elemental)] 325 mg PO BID@0800,1700 04/16/21 [History] Acetaminophen Tab [Tylenol] 650 mg PO Q6HR PRN tab 04/28/21 [Rx] Famotidine [Pepcid] 20 mg PO DAILY@0800 05/07/21 [History] INSULIN ASPART (NovoLOG) [NovoLOG (formulary)] 3 unit SQ BID@1100,1700 05/07/21 [History] L.acidoph,Paracasei, B.lactis [Probiotic] 1 cap PO DAILY@0800 05/07/21 [History] Melatonin 3 mg PO DAILY PRN 05/07/21 [History] Ondansetron [Zofran] 4 mg PO TID PRN 05/07/21 [History] Spironolactone [Aldactone] 12.5 mg PO DAILY@0800 05/07/21 [History] bisacodyL [Dulcolax] 10 mg RECTAL DAILY PRN 05/07/21 [History] HYDROcodone/APAP 5-325MG [[place] 5-325] 1 tab PO Q6H PRN 06/03/21 [History] Atorvastatin [Lipitor] 40 mg PO HS@209910/23/21 [History] Empagliflozin [Jardiance] 10 mg PO DAILY@0800 10/23/21 [History] Furosemide [Lasix] 20 mg PO DAILY@0810/23/21 [History] Emmanuel Packet 1 packet PO BID@0800,1700 10/23/21 [History] Sacubitril/Valsartan [Entresto 24 mg-26 mg Tablet] 1 tab PO BID@0800,1700 10/23/21 [History] carvediloL [Coreg] 6.25 mg PO BID@0800,1700 10/23/21 [History] Cholecalciferol (Vitamin D3) [Vitamin D3 (50 Mcg = 2000 Iu)] 100 mcg PO DAILY@0800 08/03/24 [History] Eucerin Advanced Repair Cream 1 applic TOPICAL DAILY 08/03/24 [History] Folic Acid 0.4 mg PO DAILY@0808/03/24 [History] INSULIN ASPART (NovoLOG) [NovoLOG (formulary)] See Protocol SQ ACHS 08/03/24 [History] Insulin Degludec [Tresiba Flextouch U-100 Pen] 25 units SQ HS@212908/03/24 [History] Ipratropium-Albuterol Nebulize [Duoneb 0.5 mg-3 mg/3 ml Soln] 3 ml INHALATION RT-Q6H PRN 08/03/24 [History] Lactulose 10 gm PO BID@0800,17008/03/24 [History] Lidocaine 5% Cream 1 applic TOPICAL DAILY PRN 08/03/24 [History] Liquacel 30 ml PO DAILY@0808/03/24 [History] Loperamide [Imodium] 2 mg PO Q6H PRN 08/03/24 [History] Magnesium Hydroxide [Milk of Magnesia Concentrate] 7,200 mg PO Q2D PRN 08/03/24 [History] Multivitamins, Thera [Multivitamin (formulary)] 1 tab PO DAILY@17008/03/24 [History] Mylanta Double Strength 139-717-88ls/5ml 10 ml PO Q4H PRN 08/03/24 [History] Patiromer Calcium Sorbitex [Veltassa] 8.4 gm PO TH@1200 08/03/24 [History] Semaglutide [Ozempic] 0.25 mg SQ WE@212908/03/24 [History] allopurinoL [Zyloprim] 100 mg PO DAILY@0800 08/03/24 [History] guaiFENesin [guaiFENesin Oral Solution] 200 mg PO Q4H PRN 08/03/24 [History] guaiFENesin [guaiFENesin Oral Solution] 200 mg PO QID 08/03/24 [History] Vancomycin HCl in 5 % Dextrose [Vancomycin 1.25 Gram/250Ml-D5w] 1.25 gm IV DAILY #28 each 08/12/24 [Rx] Albuterol Nebulized [Ventolin Nebulized] 2.5 mg INHALATION RT-TID PRN ml 08/13/24 [Rx] Ipratropium-Albuterol Nebulize [Duoneb 0.5 mg-3 mg/3 ml Soln] 3 ml INHALATION RT-Q4H PRN each 08/13/24 [Rx] Follow up Appointment(s)/Referral(s): Faraz Loza MD [Primary Care Provider] - 1-2 days Alana Viveros, [NON-STAFF] - As Needed Kate Oliver MD [STAFF PHYSICIAN] - 1 Week Patient Instructions/Handouts: MRSA (Methicillin-Resistant Staphylococcus Aureus) (DC) Activity/Diet/Wound Care/Special Instructions: Please follow-up with your PCP, and infectious disease within 1 to 2 weeks. Discharge Disposition: TRANSFER TO SNF/ECF Plan of Treatment: Fluid Restriction 1.5 L per day.
[2024-08-13 15:50] VITALS: BP 121/56; PULSE 78; RESP 18; TEMP 99.3
--- NOTE | 2024-08-13 17:42 | CDI ---
Date: 08/13/2024 From: Ariela [email or web address] Email: [email or web address] Admit Date: 08/03/2024 09:43:00 PM Patient Name: Lilia Boateng Visit Number: [id number] Discharge Date: N/A ATTENTION: The Clinical Documentation Specialists (CDI) and [facility] Coding Staff appreciate your assistance in clarifying documentation. Please respond to the clarification below the line at the bottom and electronically sign. The CDI & [facility] Coding staff will review the response and follow-up if needed. Please note: Queries are made part of the Legal Health Record. If you have any questions, please contact the author of this message via ITS. Dr. Celia Cedillo, Acute hypoxic respiratory failure is documented in the H&P Report on 08/04/2024 - which may lack sufficient clinical evidence/support in the medical record. Additional clarification is requested. Patient history/risk factors: 84-year-old female presented to [facility] ED for evaluation due to fever, chills, generalized weakness, and non-productive cough. PMH: Type 2 diabetes mellitus, hypertension, chronic systolic heart failure, GERD, coronary artery disease Clinical Indicators: Chest X-Ray (08/03/2024): Cardiomegaly and mild pulmonary vascular congestion Oxygenation Trend: 08/03/2024 08/04/2024 08/05/2024 08/06/2024 - 08/13/2024 Respiratory Rate 16 breaths/minute 19 breaths/minute 18 breaths/minute 16 - 19 breaths/minute SpO2 % 98% --> 98% 94% 93% - 100% 91% - 99% Oxygen Delivery Room Air 2L NC 2L NC 2L NC Room Air H&P Report (08/04/2024): o Vital signs on arrival shows temperature 97.9 F, pulse rate 92, respiratory rate 16, blood pressure 148/72, oxygen saturation 98% on room air o Subsequent vital signs show temperature 98.8 F, pulse rate 87, respirate 18, blood pressure 125/76, oxygen saturation 99% 2L via nasal cannula o Acute hypoxemic respiratory failure secondary to CHF exacerbation o Suspected community-acquired pneumonia o RSV positive Treatment: Supplemental Oxygen (2 Liters via Nasal Cannula) Intermittent Pulse Oximetry Monitoring (Every Shift) Solu-Medrol 60mg IVP x 1 After work up and study, please clarify which diagnosis is most appropriate? [ ] Respiratory failure has been ruled out [X ] Acute hypoxic respiratory failure is a valid diagnosis as evidenced by the following: __Pneumonia due to RSV [ ] Respiratory insufficiency (respiratory failure ruled out) [ ] Unable to determine [ ] Other, please specify MTDD
== END 2024-08-13 16:59 | DRG 193 ==
LOC: EC 16:48 → 4SSUR 21:43
PROVIDERS: ADMIT Hospitalist; ATTEND Hospitalist
PROC: 02HV33Z Insertion of Infusion Device into Superior Vena Cava, Percutaneous Approach (ICD-10-PCS; principal; 2024-08-13 09:30)
DX: J12.1 Respiratory syncytial virus pneumonia (principal); I50.23 Acute on chronic systolic (congestive) heart failure; J96.01 Acute respiratory failure with hypoxia; L89.312 Pressure ulcer of right buttock, stage 2; R78.81 Bacteremia; L89.322 Pressure ulcer of left buttock, stage 2; I27.22 Pulmonary hypertension due to left heart disease; I11.0 Hypertensive heart disease with heart failure; F03.90 Unspecified dementia, unspecified severity, without behavioral disturbance, psychotic disturbance, mood disturbance, and anxiety; E11.622 Type 2 diabetes mellitus with other skin ulcer; I08.3 Combined rheumatic disorders of mitral, aortic and tricuspid valves; I70.0 Atherosclerosis of aorta; E87.1 Hypo-osmolality and hyponatremia; N12 Tubulo-interstitial nephritis, not specified as acute or chronic; I83.029 Varicose veins of left lower extremity with ulcer of unspecified site; E11.40 Type 2 diabetes mellitus with diabetic neuropathy, unspecified; Z79.4 Long term (current) use of insulin; E83.41 Hypermagnesemia; E87.5 Hyperkalemia; I25.5 Ischemic cardiomyopathy; B95.62 Methicillin resistant Staphylococcus aureus infection as the cause of diseases classified elsewhere; J20.5 Acute bronchitis due to respiratory syncytial virus; E78.5 Hyperlipidemia, unspecified; K21.9 Gastro-esophageal reflux disease without esophagitis; I25.10 Atherosclerotic heart disease of native coronary artery without angina pectoris; Z96.651 Presence of right artificial knee joint; Z95.1 Presence of aortocoronary bypass graft; Z79.82 Long term (current) use of aspirin; Z79.899 Other long term (current) drug therapy; Z79.84 Long term (current) use of oral hypoglycemic drugs; I25.2 Old myocardial infarction; Z86.14 Personal history of Methicillin resistant Staphylococcus aureus infection; Z95.810 Presence of automatic (implantable) cardiac defibrillator
CPT/HCPCS: 36415; 36573; 71045; 71046; 74176; 80048; 80053; 80202; 81001; 83605; 83735; 83880; 83930; 84100; 84145; 85025; 85610; 85652; 86140; 87040; 87077; 87086; 87186; 87449; 87636; 93306; 93312; 93320; 93325; 94760; 96361; 96365; 96372; 96375; 99291

== ENCOUNTER 2024-11-17 08:04 | Inpatient (IN) | payer MEDICARE, OTHER ==
[2024-11-17] MEDS: SODIUM CHLORIDE 0.9% 1,000 ML IV ONE ×2 (08:30→10:28)
[2024-11-17] MEDS: SODIUM CHLORIDE 0.9% 500 ML 500 ML IV ONE (08:33)
--- NOTE | 2024-11-17 08:33 | ED ---
General Adult HPI - General Stated complaint: AMS,Near syncope Time Seen by Provider: 11/17/24 08:05 Source: patient, RN notes reviewed, old records reviewed - History of Present Illness Initial comments: This is an 84-year-old female who presents to the emergency department via EMS from the skilled nursing. [facility] sent her in because she was altered mentally her blood pressure was extremely low and she was unable to get up even with assistance. Patient also was tachycardic and had a temperature of 100.8 according to the skilled nursing. Patient self is unable to give any further history and at this time this is all the history we have. - Related Data Home Medications Medication Instructions Recorded Confirmed Aspirin EC [Ecotrin Low Dose] 81 mg PO DAILY@0800 03/14/21 11/17/24 Donepezil [Aricept] 10 mg PO HS@209903/14/21 11/17/24 Isosorbide Mononitrate ER [Imdur] 30 mg PO DAILY@0800 03/14/21 11/17/24 Magnesium Oxide 400 mg PO DAILY@0800 03/14/21 11/17/24 Benzocaine/Menthol [Dermoplast 1 spray TOPICAL BID PRN 04/16/21 11/17/24 Pain Relieving [place]] Famotidine [Pepcid] 20 mg PO DAILY@0800 05/07/21 11/17/24 INSULIN ASPART (NovoLOG) [NovoLOG 3 unit SQ BID@1100,1700 05/07/21 11/17/24 (formulary)] L.acidoph,Paracasei, B.lactis 1 cap PO DAILY@0800 05/07/21 11/17/24 [Probiotic] Melatonin 3 mg PO DAILY PRN 05/07/21 11/17/24 Ondansetron [Zofran] 4 mg PO TID PRN 05/07/21 11/17/24 Spironolactone [Aldactone] 12.5 mg PO DAILY@0800 05/07/21 11/17/24 bisacodyL [Dulcolax] 10 mg RECTAL DAILY PRN 05/07/21 11/17/24 HYDROcodone/APAP 5-325MG [Vermillion 1 tab PO BID@0800,1700 06/03/21 11/17/24 5-325] Atorvastatin [Lipitor] 40 mg PO HS@2100 10/23/21 11/17/24 Empagliflozin [Jardiance] 10 mg PO DAILY@0800 10/23/21 11/17/24 Furosemide [Lasix] 40 mg PO DAILY@0800 10/23/21 11/17/24 Emmanuel Packet 1 packet PO BID@0800,1700 10/23/21 11/17/24 Sacubitril/Valsartan [Entresto 24 1 tab PO BID@0800,1700 10/23/21 11/17/24 mg-26 mg Tablet] carvediloL [Coreg] 6.25 mg PO BID@0800,1700 10/23/21 11/17/24 Cholecalciferol (Vitamin D3) 100 mcg PO DAILY@0800 08/03/24 11/17/24 [Vitamin D3 (50 Mcg = 2000 Iu)] Eucerin Advanced Repair Cream 1 applic TOPICAL DAILY 08/03/24 11/17/24 Folic Acid 0.4 mg PO DAILY@0800 08/03/24 11/17/24 INSULIN ASPART (NovoLOG) [NovoLOG See Protocol SQ ACHS 08/03/24 11/17/24 (formulary)] Insulin Degludec [Tresiba 20 units SQ HS@2130 08/03/24 11/17/24 Flextouch U-100 Pen] Lactulose 10 gm PO BID@0800,1700 08/03/24 11/17/24 Lidocaine 5% Cream 1 applic TOPICAL WE PRN 08/03/24 11/17/24 Liquacel 30 ml PO DAILY@0800 08/03/24 11/17/24 Loperamide [Imodium] 2 mg PO Q6H PRN 08/03/24 11/17/24 Magnesium Hydroxide [Milk of 7,200 mg PO Q2D PRN 08/03/24 11/17/24 Magnesia Concentrate] Multivitamins, Thera [Multivitamin 1 tab PO DAILY@1700 08/03/24 11/17/24 (formulary)] Mylanta Double Strength 10 ml PO Q4H PRN 08/03/24 11/17/24 801-824-74md/5ml Patiromer Calcium Sorbitex 8.4 gm PO TH@1200 08/03/24 11/17/24 [Veltassa] Semaglutide [Ozempic] 0.25 mg SQ WE@2130 08/03/24 11/17/24 allopurinoL [Zyloprim] 100 mg PO DAILY@0800 08/03/24 11/17/24 ALPRAZolam [Xanax] 0.25 mg PO DAILY@1700 11/17/24 11/17/24 Ascorbic Acid [Vitamin C] 250 mg PO DAILY@0800 11/17/24 11/17/24 Collagenase [Santyl Ointment] 1 applic TOPICAL DAILY 11/17/24 11/17/24 HYDROcodone/APAP 5-325MG [Vermillion 1 tab PO Q24H PRN 11/17/24 11/17/24 5-325] Hydrophilic Cream [Triad (Kerodex 1 applic TOPICAL TID 11/17/24 11/17/24 geq)] Lidocaine 5% Cream 1 applic TOPICAL DAILY PRN 11/17/24 11/17/24 Vashe Wound Cleanser 1 applic TOPICAL DAILY PRN 11/17/24 11/17/24 Vashe Wound Cleanser 1 applic TOPICAL MOWEFR 11/17/24 11/17/24 Previous Rx's Medication Instructions Recorded Acetaminophen Tab [Tylenol] 650 mg PO Q6HR PRN tab 04/28/21 Albuterol Nebulized [Ventolin 2.5 mg INHALATION RT-TID PRN ml 08/13/24 Nebulized] Ipratropium-Albuterol Nebulize 3 ml INHALATION RT-Q4H PRN each 08/13/24 [Duoneb 0.5 mg-3 mg/3 ml Soln] Allergies Allergy/AdvReac Type Severity Reaction Status Date / Time Sulfa (Sulfonamide Allergy Anaphylaxis Verified 11/17/24 12:17 Antibiotics) Review of Systems ROS Statement: Those systems with pertinent positive or pertinent negative responses have been documented in the HPI. ROS Other: All systems not noted in ROS Statement are negative. Past Medical History Past Medical History: Coronary Artery Disease (CAD), Heart Failure, Dementia, Diabetes Mellitus, Hypertension, Myocardial Infarction (GA), Pneumonia, Vascular Disorder Additional Past Medical History / Comment(s): Pt recently admitted to [facility] on 03/14/21 with CHF/L pleural effusion. Other hx: Chronic L calf wound/WCC, NIDM type II, neuropathy L foot/leg, cardiomyopathy/sees Dr Knight in [place], MIs, mild cognitive impairment, incontinence, iron anemia, hypmagnesemia Last Myocardial Infarction Date:: unsure History of Any Multi-Drug Resistant Organisms: MRSA Date of last positivie culture/infection: 08/06/24 MDRO Source:: blood; Left Foot & Leg Past Surgical History: AICD, Bladder Surgery, Coronary Bypass/CABG, Heart Catheterization, Heart Catheterization With Stent, Hysterectomy, Joint Replacement, Pacemaker Additional Past Surgical History / Comment(s): 10/2020 AICD/pacer, PCI stents, 2010 CABG 3 vessel, L leg wound I&D, bkadder suspension, ovarian cyst removal, D&C, rectocele, colonoscopy, total r knee arthroplasty. Past Anesthesia/Blood Transfusion Reactions: No Reported Reaction Date of Last Stent Placement:: unknown Type of Cardiac Device: AICD Device Placement Date:: 2020 Past Psychological History: No Psychological Hx Reported Smoking Status: Never smoker Past Alcohol Use History: None Reported Past Drug Use History: None Reported - Past Family History Father Family Medical History: No Reported History Additional Family Medical History / Comment(s): Father had heart problems. He chewed tobacco, smoked and drank quit a bit of alcohol. Mother Family Medical History: Diabetes Mellitus General Exam - General Exam Comments Initial Comments: GENERAL: Patient is well-developed and well-nourished. Patient is nontoxic and well- hydrated and is in no acute distress. ENT: Neck is soft and supple. No significant lymphadenopathy is noted. Oropharynx is clear. Moist mucous membranes. EYES: The sclera were anicteric and conjunctiva is pale. Extraocular movements were intact and pupils were equal round and reactive to light. Eyelids were unremarkable. PULMONARY: Unlabored respirations. Good breath sounds bilaterally. No audible rales rhonchi or wheezing was noted. CARDIOVASCULAR: Patient is tachycardic at 120 beats a minute ABDOMEN: Soft and nontender with normal bowel sounds. SKIN: Skin is clear with no lesions or rashes and otherwise unremarkable. NEUROLOGIC: Patient is alert and oriented x 2. Cranial nerves II through XII are grossly intact. Motor and sensory are also intact. Normal speech, volume and content. Symmetrical smile. MUSCULOSKELETAL: Normal extremities with adequate strength and full range of motion. LYMPHATICS: No significant lymphadenopathy is noted PSYCHIATRIC: Unable to assess at this time Course Vital Signs 11/17/24 11/17/24 11/17/24 08:09 08:31 09:00 Temperature 98.4 F 101.9 F H Pulse Rate 120 H 101 H Respiratory 30 H 30 H Rate Blood Pressure 78/41 81/46 O2 Sat by Pulse 97 98 Oximetry 11/17/24 11/17/24 11/17/24 09:18 09:35 10:24 Temperature 98.3 F Pulse Rate 106 H 105 H 101 H Respiratory 30 H 28 H 20 Rate Blood Pressure 73/51 80/61 74/38 O2 Sat by Pulse 97 97 94 L Oximetry 11/17/24 11/17/24 11/17/24 11:12 11:42 12:00 Temperature Pulse Rate 96 94 Respiratory 20 20 Rate Blood Pressure 76/52 82/49 84/49 O2 Sat by Pulse 95 96 Oximetry 11/17/24 11/17/24 11/17/24 12:05 12:18 13:41 Temperature Pulse Rate 94 95 Respiratory 20 18 Rate Blood Pressure 90/48 91/57 93/56 O2 Sat by Pulse 96 96 Oximetry Medical Decision Making - Medical Decision Making EKG is interpreted by myself EKG shows a paced rhythm at 116 bpm WA interval 105 QRS 183 QT interval is 380 QTc is 449. Was pt. sent in by a medical professional or institution (, PA, RN ENT, urgent care, hospital, or skilled nursing...) When possible be specific @ -No Did you speak to anyone other than the patient for history (EMS, parent, family, police, friend...)? What history was obtained from this source @ -No Did you review nursing and triage notes (agree or disagree)? Why? @ -I reviewed and agree with nursing and triage notes Were old charts reviewed (outside hosp., previous admission, EMS record, old EKG, old radiological studies, urgent care reports/EKG's, skilled nursing records)? Report findings @ -No old charts were reviewed Differential Diagnosis? @ -Differential Altered Mental Status: Hypoglycemia, DKA, hypercapnia, ETOH, overdose, CO poisoning, trauma, myxedema coma, HTN encephalopathy, infection, encephalitis, psychosis, intercranial hemorrhage, hepatic encephalopathy, meningitis, CVA, this is not meant to be an all-inclusive list EKG interpreted by me (3pts min.). @ -As above X-rays interpreted by me (1pt min.). @ -Chest x-ray shows mild pulmonary edema CT interpreted by me (1pt min.). @ -None done U/S interpreted by me (1pt. min.). @ -None done What testing was considered but not performed or refused? (CT, X-rays, U/S, labs)? Why? @ -None What meds were considered but not given or refused? Why? @ -None Did you discuss the management of the patient with other professionals (professionals i.e. Dr., PA, RN ENT, lab, RT, psych nurse, sr. social media & mobile manager, operating manager, teacher, court officer, case investigator)? Give summary @ -I spoke with Dr. Núñez and Dr. Orozco about admitting the patient. Was smoking cessation discussed for >3mins.? @ -No Was critical care preformed (if so, how long)? @ -35 minutes Were there social determinants of health that impacted care today? How? (Homelessness, low income, unemployed, alcoholism, drug addiction, transportation, low edu. Level, literacy, decrease access to med. care, halfway, rehab)? @ -No Was there de-escalation of care discussed even if they declined (Discuss DNR or withdrawal of care, Hospice)? DNR status @ -No What co-morbidities impacted this encounter? (DM, HTN, Smoking, COPD, CAD, Cancer, CVA, ARF, Chemo, Hep., AIDS, mental health diagnosis, sleep apnea, morbid obesity)? @ -None Was patient admitted / discharged? Hospital course, mention meds given and route, prescriptions, significant lab abnormalities, going to OR and other pertinent info. @ -Patient was hypotensive even after given the patient 3 L of fluid patient was given Rocephin and vancomycin in the emergency department. Patient was also given Tylenol Motrin to bring the fever down. Patient was started on Levophed peripherally because the pressures did not respond to fluid. I spoke with Dr. Núñez who saw the patient in the emergency department I also spoke with Dr. Orozco who wanted the patient switched to cefepime and Vanco. I wrote admitting orders. Patient was diagnosed with urinary tract infection at 2:55 PM. Undiagnosed new problem with uncertain prognosis? @ -No Drug Therapy requiring intensive monitoring for toxicity (Heparin, Nitro, Insulin, Cardizem)? @ -No Were any procedures done? @ -No Diagnosis/symptom? @ -Septic shock Acute, or Chronic, or Acute on Chronic? @ -Acute Uncomplicated (without systemic symptoms) or Complicated (systemic symptoms)? @ -Complicated Side effects of treatment? @ -No Exacerbation, Progression, or Severe Exacerbation? @ -No Poses a threat to life or bodily function? How? (Chest pain, USA, GA, pneumonia, PE, COPD, DKA, ARF, appy, cholecystitis, CVA, Diverticulitis, Homicidal, Jacqueline cidal, threat to staff... and all critical care pts) @ -Yes this can lead directly to Diagnosis/symptom? @ -Heel wound Acute, or Chronic, or Acute on Chronic? @ -Acute on chronic Uncomplicated (without systemic symptoms) or Complicated (systemic symptoms)? @ -Complicated Side effects of treatment? @ -None Exacerbation, Progression, or Severe Exacerbation] @ -No Poses a threat to life or bodily function? @ -Yes this can lead to sepsis and endorgan dysfunction Diagnosis/symptom? @ -NSTEMI Acute, or Chronic, or Acute on Chronic? @ -Acute Uncomplicated (without systemic symptoms) or Complicated (systemic symptoms)? @ -Complicate Side effects of treatment? @ -None Exacerbation, Progression, or Severe Exacerbation] @ -No Poses a threat to life or bodily function? @ -Yes this can lead to an GA and endorgan dysfunction - Lab Data Result diagrams: 11/17/24 08:30 11/17/24 08:30 Lab Results 11/17/24 11/17/24 11/17/24 Range/Units 08:25 08:28 08:30 WBC 13.40 H (4.50-10.00) 10*3/uL RBC 3.40 L (4.10-5.20) 10*6/uL Hgb 9.3 L (12.0-15.0) g/dL Hct 29.0 L (37.2-46.3) % MCV 85.3 D (80.0-97.0) fL MCH 27.4 (27.0-32.0) pg MCHC 32.1 (32.0-37.0) g/dL Plt Count 439 (140-440) 10*3/uL MPV 9.3 L (9.5-12.2) fL Immature Gran % (Auto) 0.4 % Neutrophils % 85.5 % Lymphocytes % 9.3 % Monocytes % 4.5 % Eosinophils % 0.1 % Basophils % 0.2 % Immature Gran # 0.05 H (0.00-0.04) 10*3/uL Neutrophils # 11.47 H (1.80-7.70) 10*3/uL Lymphocytes # 1.24 (0.90-5.00) 10*3/uL Monocytes # 0.60 (0.20-1.00) 10*3/uL Eosinophils # 0.01 L (0.04-0.35) 10*3/uL Basophils # 0.03 (0.00-0.10) 10*3/uL PT (10.0-12.5) sec INR (<1.2) APTT (22.0-30.0) sec VBG pH (7.31-7.41) VBG pCO2 (37-51) mmHg VBG HCO3 (24-28) mmol/L Sodium (137-145) mmol/L Potassium (3.5-5.1) mmol/L Chloride (98-107) mmol/L Carbon Dioxide (22-30) mmol/L Anion Gap mmol/L BUN (7-17) mg/dL Creatinine (0.52-1.04) mg/dL Est GFR (CKD-EPI)AfAm (>60 ml/min/1.73 sqM) Est GFR (CKD-EPI)NonAf (>60 ml/min/1.73 sqM) Glucose (74-99) mg/dL Calcium (8.4-10.2) mg/dL Total Bilirubin (0.2-1.3) mg/dL AST (14-36) U/L ALT (4-34) U/L Alkaline Phosphatase (38-126) U/L Troponin I (0.000-0.034) ng/mL Total Protein (6.3-8.2) g/dL Albumin (3.5-5.0) g/dL Urine Opiates Screen (NotDetected) Ur Oxycodone Screen (NotDetected) Urine Methadone Screen (NotDetected) Ur Barbiturates Screen (NotDetected) U Tricyclic Antidepress (NotDetected) Ur Phencyclidine Scrn (NotDetected) Ur Amphetamines Screen (NotDetected) U Methamphetamines Scrn (NotDetected) U Benzodiazepines Scrn (NotDetected) Urine Cocaine Screen (NotDetected) U Marijuana (THC) Screen (NotDetected) Influenza Type A (PCR) (Not Detectd) Influenza Type B (PCR) (Not Detectd) RSV (PCR) (Not Detectd) SARS-CoV-2 (PCR) (Not Detectd) Blood Type O Positive Blood Type Confirm O Positive Blood Type Recheck No Previous Record Bld Type Recheck Status CABO Indicated Antibody Screen NEGATIVE Spec Expiration Date 11/20/2024232911/17/24 11/17/24 11/17/24 Range/Units 08:30 08:30 08:30 WBC (4.50-10.00) 10*3/uL RBC (4.10-5.20) 10*6/uL Hgb (12.0-15.0) g/dL Hct (37.2-46.3) % MCV (80.0-97.0) fL MCH (27.0-32.0) pg MCHC (32.0-37.0) g/dL Plt Count (140-440) 10*3/uL MPV (9.5-12.2) fL Immature Gran % (Auto) % Neutrophils % % Lymphocytes % % Monocytes % % Eosinophils % % Basophils % % Immature Gran # (0.00-0.04) 10*3/uL Neutrophils # (1.80-7.70) 10*3/uL Lymphocytes # (0.90-5.00) 10*3/uL Monocytes # (0.20-1.00) 10*3/uL Eosinophils # (0.04-0.35) 10*3/uL Basophils # (0.00-0.10) 10*3/uL PT 12.3 (10.0-12.5) sec INR 1.1 (<1.2) APTT 22.5 (22.0-30.0) sec VBG pH (7.31-7.41) VBG pCO2 (37-51) mmHg VBG HCO3 (24-28) mmol/L Sodium 132 L (137-145) mmol/L Potassium 5.7 H (3.5-5.1) mmol/L Chloride 98 (98-107) mmol/L Carbon Dioxide 21 L (22-30) mmol/L Anion Gap 13 mmol/L BUN 76 H (7-17) mg/dL Creatinine 1.35 H (0.52-1.04) mg/dL Est GFR (CKD-EPI)AfAm 42 (>60 ml/min/1.73 sqM) Est GFR (CKD-EPI)NonAf 37 (>60 ml/min/1.73 sqM) Glucose 219 H (74-99) mg/dL Calcium 10.2 (8.4-10.2) mg/dL Total Bilirubin 0.8 (0.2-1.3) mg/dL AST 54 H (14-36) U/L ALT 95 H (4-34) U/L Alkaline Phosphatase 148 H (38-126) U/L Troponin I 1.110 H* (0.000-0.034) ng/mL Total Protein 6.0 L (6.3-8.2) g/dL Albumin 2.9 L (3.5-5.0) g/dL Urine Opiates Screen (NotDetected) Ur Oxycodone Screen (NotDetected) Urine Methadone Screen (NotDetected) Ur Barbiturates Screen (NotDetected) U Tricyclic Antidepress (NotDetected) Ur Phencyclidine Scrn (NotDetected) Ur Amphetamines Screen (NotDetected) U Methamphetamines Scrn (NotDetected) U Benzodiazepines Scrn (NotDetected) Urine Cocaine Screen (NotDetected) U Marijuana (THC) Screen (NotDetected) Influenza Type A (PCR) (Not Detectd) Influenza Type B (PCR) (Not Detectd) RSV (PCR) (Not Detectd) SARS-CoV-2 (PCR) (Not Detectd) Blood Type Blood Type Confirm Blood Type Recheck Bld Type Recheck Status Antibody Screen Spec Expiration Date 11/17/24 11/17/24 11/17/24 Range/Units 08:30 08:37 09:01 WBC (4.50-10.00) 10*3/uL RBC (4.10-5.20) 10*6/uL Hgb (12.0-15.0) g/dL Hct (37.2-46.3) % MCV (80.0-97.0) fL MCH (27.0-32.0) pg MCHC (32.0-37.0) g/dL Plt Count (140-440) 10*3/uL MPV (9.5-12.2) fL Immature Gran % (Auto) % Neutrophils % % Lymphocytes % % Monocytes % % Eosinophils % % Basophils % % Immature Gran # (0.00-0.04) 10*3/uL Neutrophils # (1.80-7.70) 10*3/uL Lymphocytes # (0.90-5.00) 10*3/uL Monocytes # (0.20-1.00) 10*3/uL Eosinophils # (0.04-0.35) 10*3/uL Basophils # (0.00-0.10) 10*3/uL PT (10.0-12.5) sec INR (<1.2) APTT (22.0-30.0) sec VBG pH 7.38 (7.31-7.41) VBG pCO2 39 (37-51) mmHg VBG HCO3 23 L (24-28) mmol/L Sodium (137-145) mmol/L Potassium (3.5-5.1) mmol/L Chloride (98-107) mmol/L Carbon Dioxide (22-30) mmol/L Anion Gap mmol/L BUN (7-17) mg/dL Creatinine (0.52-1.04) mg/dL Est GFR (CKD-EPI)AfAm (>60 ml/min/1.73 sqM) Est GFR (CKD-EPI)NonAf (>60 ml/min/1.73 sqM) Glucose (74-99) mg/dL Calcium (8.4-10.2) mg/dL Total Bilirubin (0.2-1.3) mg/dL AST (14-36) U/L ALT (4-34) U/L Alkaline Phosphatase (38-126) U/L Troponin I (0.000-0.034) ng/mL Total Protein (6.3-8.2) g/dL Albumin (3.5-5.0) g/dL Urine Opiates Screen Detected H (NotDetected) Ur Oxycodone Screen Not Detected (NotDetected) Urine Methadone Screen Not Detected (NotDetected) Ur Barbiturates Screen Not Detected (NotDetected) U Tricyclic Antidepress Not Detected (NotDetected) Ur Phencyclidine Scrn Not Detected (NotDetected) Ur Amphetamines Screen Not Detected (NotDetected) U Methamphetamines Scrn Not Detected (NotDetected) U Benzodiazepines Scrn Detected H (NotDetected) Urine Cocaine Screen Not Detected (NotDetected) U Marijuana (THC) Screen Not Detected (NotDetected) Influenza Type A (PCR) Not Detected (Not Detectd) Influenza Type B (PCR) Not Detected (Not Detectd) RSV (PCR) Not Detected (Not Detectd) SARS-CoV-2 (PCR) Not Detected (Not Detectd) Blood Type Blood Type Confirm Blood Type Recheck Bld Type Recheck Status Antibody Screen Spec Expiration Date 11/17/24 Range/Units 11:45 WBC (4.50-10.00) 10*3/uL RBC (4.10-5.20) 10*6/uL Hgb (12.0-15.0) g/dL Hct (37.2-46.3) % MCV (80.0-97.0) fL MCH (27.0-32.0) pg MCHC (32.0-37.0) g/dL Plt Count (140-440) 10*3/uL MPV (9.5-12.2) fL Immature Gran % (Auto) % Neutrophils % % Lymphocytes % % Monocytes % % Eosinophils % % Basophils % % Immature Gran # (0.00-0.04) 10*3/uL Neutrophils # (1.80-7.70) 10*3/uL Lymphocytes # (0.90-5.00) 10*3/uL Monocytes # (0.20-1.00) 10*3/uL Eosinophils # (0.04-0.35) 10*3/uL Basophils # (0.00-0.10) 10*3/uL PT (10.0-12.5) sec INR (<1.2) APTT (22.0-30.0) sec VBG pH (7.31-7.41) VBG pCO2 (37-51) mmHg VBG HCO3 (24-28) mmol/L Sodium (137-145) mmol/L Potassium (3.5-5.1) mmol/L Chloride (98-107) mmol/L Carbon Dioxide (22-30) mmol/L Anion Gap mmol/L BUN (7-17) mg/dL Creatinine (0.52-1.04) mg/dL Est GFR (CKD-EPI)AfAm (>60 ml/min/1.73 sqM) Est GFR (CKD-EPI)NonAf (>60 ml/min/1.73 sqM) Glucose (74-99) mg/dL Calcium (8.4-10.2) mg/dL Total Bilirubin (0.2-1.3) mg/dL AST (14-36) U/L ALT (4-34) U/L Alkaline Phosphatase (38-126) U/L Troponin I 2.200 H* (0.000-0.034) ng/mL Total Protein (6.3-8.2) g/dL Albumin (3.5-5.0) g/dL Urine Opiates Screen (NotDetected) Ur Oxycodone Screen (NotDetected) Urine Methadone Screen (NotDetected) Ur Barbiturates Screen (NotDetected) U Tricyclic Antidepress (NotDetected) Ur Phencyclidine Scrn (NotDetected) Ur Amphetamines Screen (NotDetected) U Methamphetamines Scrn (NotDetected) U Benzodiazepines Scrn (NotDetected) Urine Cocaine Screen (NotDetected) U Marijuana (THC) Screen (NotDetected) Influenza Type A (PCR) (Not Detectd) Influenza Type B (PCR) (Not Detectd) RSV (PCR) (Not Detectd) SARS-CoV-2 (PCR) (Not Detectd) Blood Type Blood Type Confirm Blood Type Recheck Bld Type Recheck Status Antibody Screen Spec Expiration Date Disposition Clinical Impression: Septic shock, Non healing left heel wound, NSTEMI (non-ST elevated myocardial infarction), Urinary tract infection Disposition: [facility]MITTED [facility] Time of Disposition: 13:07
[2024-11-17 08:38] LABS: Basophils # (A) 0.03 10*3/uL (0.00-0.10); Basophils % (A) 0.2 %; Eosinophils # (A) 0.01 10*3/uL (0.04-0.35); Eosinophils % (A) 0.1 %; HCT 29.0 % (37.2-46.3); HGB 9.3 g/dL (12.0-15.0); Lymphocytes # (A) 1.24 10*3/uL (0.90-5.00); Lymphocytes % (A) 9.3 %; MCH 27.4 pg (27.0-32.0); MCHC 32.1 g/dL (32.0-37.0); Monocytes # (A) 0.60 10*3/uL (0.20-1.00); Monocytes % (A) 4.5 %; Neutrophils # (A) 11.47 10*3/uL (1.80-7.70); Neutrophils % (A) 85.5 %; Platelet Count 439 10*3/uL (140-440); RBC 3.40 10*6/uL (4.10-5.20); RDW 15.5 % (11.5-14.5); WBC 13.40 10*3/uL (4.50-10.00)
[2024-11-17 08:45] LABS: VBG HCO3 23.0 mmol/L (24-28); VBG PCO2 39.0 mmHg (37-51); VBG PH 7.38 (7.31-7.41)
[2024-11-17 08:48] LABS: MCV 85.3 fL (80.0-97.0)
[2024-11-17 09:05] LABS: ALT 95 U/L (4-34); AST 54 U/L (14-36); African American GFR (CKD) 42 (>60 ml/min/1.73 sqM); Albumin 2.9 g/dL (3.5-5.0); Alkaline Phosphatase 148 U/L (38-126); Anion Gap 13 mmol/L; Blood Urea Nitrogen 76 mg/dL (7-17); Calcium 10.2 mg/dL (8.4-10.2); Carbon Dioxide 21 mmol/L (22-30); Chloride 98 mmol/L (98-107); Glucose 219 mg/dL (74-99); Non-African American GFR(CKD) 37 (>60 ml/min/1.73 sqM); Potassium 5.7 mmol/L (3.5-5.1); Sodium 132 mmol/L (137-145); Total Protein 6.0 g/dL (6.3-8.2)
[2024-11-17 09:07] LABS: INR 1.1 (<1.2); Partial Thromboplastin Time 22.5 sec (22.0-30.0); Prothrombin Time 12.3 sec (10.0-12.5)
[2024-11-17] MEDS: ACETAMINOPHEN TAB 500 MG TAB PO STA (09:07)
[2024-11-17] MEDS: IBUPROFEN 600 MG TAB PO STA (09:10)
[2024-11-17] MEDS: cefTRIAXone IN SWFI 1,000 MG/10 ML SYRINGE IVP STA (09:19)
[2024-11-17 09:26] LABS: RSV Not Detected (Not Detectd)
[2024-11-17] MEDS: HYDROCORTISONE SUCCINATE 100 MG/2 ML VIAL IV STA (09:29)
[2024-11-17 09:43] LABS: Barbiturate Screen,Urine Not Detected (NotDetected); Benzodiazepines Screen,Urine Detected (NotDetected); Opiate Screen,Urine Detected (NotDetected); Oxycodone Screen, Urine Not Detected (NotDetected); Phencyclidine Screen,Urine Not Detected (NotDetected); Tricyclic Antidepressant,Urine Not Detected (NotDetected); Urn Cannabinoid Scrn Not Detected (NotDetected)
[2024-11-17] MEDS ORDERED: VANCOMYCIN IV PER PHARMACY 1 EACH MISC MISCELLANE PRN (10:42)
--- NOTE | 2024-11-17 11:28 | XR ---
EXAMINATION TYPE: XR chest 2V DATE OF EXAM: 11/17/2024 9:17 AM COMPARISON: 08/04/2024 CLINICAL INDICATION: Female, 84 years old with history of altered mental status: Shortness of breath TECHNIQUE: Single view chest FINDINGS: Scattered senescent parenchymal changes noted. Hyperinflation compatible with COPD. Stable pulmonary venous congestion with scattered infiltrates and small effusions suggestive of conge stive failure. Overall appearance is stable. Mediastinal structures are stable and grossly unremarkable. No evidence for hilar prominence. Degenerative changes dorsal spine. IMPRESSION: 1. Stable pulmonary venous congestion with scattered infiltrates and small effusions suggestive of co ngestive failure. Overall appearance is stable. [facility], , 11/17/2024 10:55 AM
[2024-11-17] MEDS: NOREPINEPHRINE 8 MG in SODIUM CHLORIDE 0.9% 250 ML IV SCH (11:41)
[2024-11-17] MEDS ORDERED: NALOXONE 0.4 MG/ML 1 ML VIAL IV PRN (13:08)
[2024-11-17] MEDS: VANCOMYCIN 1,250 MG in SODIUM CHLORIDE 0.9% 250 ML IVPB STA (13:30)
[2024-11-17] MEDS: HEPARIN SODIUM 1,000 UN/ML (10ML VL) IV ONE (13:35)
[2024-11-17] MEDS: HEPARIN SOD,PORK IN 0.45% NACL 25,000 UNIT in 0.45% NACL 1 250ML.BAG IV SCH (13:36)
[2024-11-17 14:27] LABS: Bacteria,Urine Occasional /hpf; Bilirubin,Urine Negative (Negative); Blood,Urine Trace (Negative); Color,Urine Yellow; Glucose,Urine (UA) 4+ (Negative); Ketones,Urine Negative (Negative); Leukocyte Esterase,Urine Large (Negative); Mucus,Urine Rare /hpf; Nitrite,Urine Negative (Negative); PH, Urine 5.0 (5.0-8.0); Protein,Urine 1+ (Negative); RBC,Urine 6 /hpf (0-5); Specific Gravity,Urine 1.017 (1.001-1.035); Squamous Epithelial Cell,Urine 12 /hpf (0-4); Urobilinogen,Urine <2.0 mg/dL (<2.0); WBC,Urine >182 /hpf (0-5)
--- NOTE | 2024-11-17 15:08 | XR ---
EXAMINATION TYPE: XR foot limited LT DATE OF EXAM: 11/17/2024 2:58 PM COMPARISON: None CLINICAL INDICATION: Female, 84 years old with history of Osteomyelitis; pain TECHNIQUE: XR foot limited LT examined in the AP, oblique, and lateral projections. FINDINGS: Soft tissue wound over the heel no definitive osseous erosion this time. Diffuse osseous demineraliza tion. No evidence for fracture. Multifocal degeneration changes of the joints of blood. Severe athero sclerosis. IMPRESSION: No evidence of acute fracture. Soft tissue wound over the heel without evidence for osseous erosion at this time. [facility], , 11/17/2024 3:05 PM
[2024-11-17] MEDS ORDERED: CEFEPIME 2 GM in SODIUM CHLORIDE 0.9% 100 ML IVPB SCH (16:00)
[2024-11-17] MEDS: CEFEPIME 2 GM in SODIUM CHLORIDE 0.9% 100 ML IVPB STA (16:37)
--- NOTE | 2024-11-17 16:44 | US ---
EXAMINATION TYPE: US venous doppler duplex LE BI DATE OF EXAM: 11/17/2024 4:02 PM COMPARISON: US 2020 CLINICAL INDICATION: Female, 84 years old with history of weak, leg pain, debilitated; , Pain TECHNIQUE: The lower extremity deep venous system is examined utilizing real time linear array sonog henry with graded compression, color doppler sonography, and spectral doppler. SIDE PERFORMED: Bilateral FINDINGS: VESSELS IMAGED: Common Femoral Vein Deep Femoral Vein Greater Saphenous Vein * Femoral Vein Popliteal Vein Small Saphenous Vein * Proximal Calf Veins (* superficial vessels) Right Leg: Appears negative for DVT Left Leg: Appears negative for DVT IMPRESSION: No ultrasound evidence for deep venous thrombosis. [facility], , 11/17/2024 4:41 PM
[2024-11-17 17:46] LABS: Glucose,Whole Blood 256 mg/dL (70-110)
[2024-11-17] MEDS ORDERED: Magnesium Replacement Protocol 1 EACH MISC MISCELLANE PRN (17:56)
[2024-11-17] MEDS ORDERED: Potassium Replacement Protocol 1 EACH MISC MISCELLANE PRN (17:56)
[2024-11-17] MEDS ORDERED: Phosphorus Replacement Protoco 1 EACH MISC MISCELLANE PRN (17:56)
--- NOTE | 2024-11-17 22:42 | P.CONS ---
History of Present Illness - Reason for Consult Consult date: 11/17/24 Sepsis left heel wound Requesting physician: David Estevez - Chief Complaint altered mental status low blood pressure x 1 day - History of Present Illness Patient is a 84-year-old female with a past medical history significant for Coronary Artery Disease (CAD), Heart Failure, Dementia, Diabetes Mellitus, Hypertension, Myocardial Infarction (NE), Pneumonia, Vascular Disorder, history of left heel infected pressure ulcer and snf resident patient has been sent to the from the snf has the patient was noticed to be active mentally and noticed to have very low blood pressure patient also tachycardic and did have a fever on presentation to the hospital patient did have temperature of 101.9 F patient was tachycardic tachypneic and hypertensive patient was not hypoxic no need for supplemental oxygen did have a elevated white count of 13.40 with a left shift BUN and creatinine has been elevated potassium is 5.7 troponin is elevated for liver isms mildly elevated urine has been positive urine recently positive for opiates and benzo influenza RSV COVID testing was negative patient did have a chest x-ray stable pulmonary venous congestion with scattered infiltrates small effusion suggestive of congestive heart failure patient did have x-ray of the foot no evidence for acute fracture soft tissue wound over the heel without bony erosion at this time patient was started on cefepime and vancomycin admitted to hospital infectious disease was consulted for further management of antibiotic therapy most information has been obtained from review the chart talking nursing staff the patient was lethargic though arousable but unable to provide reliable history Review of Systems Positive points has been mentioned in HPI complete review could not be obtained because of his underlying mental status Past Medical History Past Medical History: Coronary Artery Disease (CAD), Heart Failure, Dementia, Diabetes Mellitus, Hypertension, Myocardial Infarction (NE), Pneumonia, Vascular Disorder Additional Past Medical History / Comment(s): Pt recently admitted to [facility] on 03/14/21 with CHF/L pleural effusion. Other hx: Chronic L calf wound/WCC, N IDM type II, neuropathy L foot/leg, cardiomyopathy/sees Dr Knight in [place], MIs, mild cognitive impairment, incontinence, iron anemia, hypmagnesemia Last Myocardial Infarction Date:: unsure History of Any Multi-Drug Resistant Organisms: MRSA Year Discovered:: 08/06/24 MDRO Source:: blood; Left Foot & Leg Past Surgical History: AICD, Bladder Surgery, Coronary Bypass/CABG, Heart Catheterization, Heart Catheterization With Stent, Hysterectomy, Joint Replacement, Pacemaker Additional Past Surgical History / Comment(s): 10/2020 AICD/pacer, PCI stents, 2010 CABG 3 vessel, L leg wound I&D, bkadder suspension, ovarian cyst removal, D&C, rectocele, colonoscopy, total r knee arthroplasty. Past Anesthesia/Blood Transfusion Reactions: No Reported Reaction Date of Last Stent Placement:: unknown Type of Cardiac Device: AICD Device Placement Date:: 2020 Past Psychological History: No Psychological Hx Reported Smoking Status: Never smoker Past Alcohol Use History: None Reported Past Drug Use History: None Reported - Past Family History Father Family Medical History: No Reported History Additional Family Medical History / Comment(s): Father had heart problems. He chewed tobacco, smoked and drank quit a bit of alcohol. Mother Family Medical History: Diabetes Mellitus Medications and Allergies Home Medications Medication Instructions Recorded Confirmed Type Aspirin EC [Ecotrin Low Dose] 81 mg PO DAILY@0800 03/14/21 11/17/24 History Donepezil [Aricept] 10 mg PO HS@2100 03/14/21 11/17/24 History Isosorbide Mononitrate ER [Imdur] 30 mg PO DAILY@0800 03/14/21 11/17/24 History Magnesium Oxide 400 mg PO DAILY@0800 03/14/21 11/17/24 History Benzocaine/Menthol [Dermoplast 1 spray TOPICAL BID PRN 04/16/21 11/17/24 History Pain Relieving [place]] Acetaminophen Tab [Tylenol] 650 mg PO Q6HR PRN tab 04/28/21 11/17/24 Rx Famotidine [Pepcid] 20 mg PO DAILY@0800 05/07/21 11/17/24 History INSULIN ASPART (NovoLOG) [NovoLOG 3 unit SQ BID@1100,1700 05/07/21 11/17/24 History (formulary)] L.acidoph,Paracasei, B.lactis 1 cap PO DAILY@0800 05/07/21 11/17/24 History [Probiotic] Melatonin 3 mg PO DAILY PRN 05/07/21 11/17/24 History Ondansetron [Zofran] 4 mg PO TID PRN 05/07/21 11/17/24 History Spironolactone [Aldactone] 12.5 mg PO DAILY@0800 05/07/21 11/17/24 History bisacodyL [Dulcolax] 10 mg RECTAL DAILY PRN 05/07/21 11/17/24 History HYDROcodone/APAP 5-325MG [[place] 1 tab PO BID@0800,1700 06/03/21 11/17/24 History 5-325] Atorvastatin [Lipitor] 40 mg PO HS@2100 10/23/21 11/17/24 History Empagliflozin [Jardiance] 10 mg PO DAILY@0800 10/23/21 11/17/24 History Furosemide [Lasix] 40 mg PO DAILY@0800 10/23/21 11/17/24 History Emmanuel Packet 1 packet PO BID@0800,1700 10/23/21 11/17/24 History Sacubitril/Valsartan [Entresto 24 1 tab PO BID@0800,1700 10/23/21 11/17/24 History mg-26 mg Tablet] carvediloL [Coreg] 6.25 mg PO BID@0800,1700 10/23/21 11/17/24 History Cholecalciferol (Vitamin D3) 100 mcg PO DAILY@0800 08/03/24 11/17/24 History [Vitamin D3 (50 Mcg = 2000 Iu)] Eucerin Advanced Repair Cream 1 applic TOPICAL DAILY 08/03/24 11/17/24 History Folic Acid 0.4 mg PO DAILY@0800 08/03/24 11/17/24 History INSULIN ASPART (NovoLOG) [NovoLOG See Protocol SQ ACHS 08/03/24 11/17/24 History (formulary)] Insulin Degludec [Tresiba 20 units SQ HS@2130 08/03/24 11/17/24 History Flextouch U-100 Pen] Lactulose 10 gm PO BID@0800,1700 08/03/24 11/17/24 History Lidocaine 5% Cream 1 applic TOPICAL WE PRN 08/03/24 11/17/24 History Liquacel 30 ml PO DAILY@0800 08/03/24 11/17/24 History Loperamide [Imodium] 2 mg PO Q6H PRN 08/03/24 11/17/24 History Magnesium Hydroxide [Milk of 7,200 mg PO Q2D PRN 08/03/24 11/17/24 History Magnesia Concentrate] Multivitamins, Thera [Multivitamin 1 tab PO DAILY@1700 08/03/24 11/17/24 History (formulary)] Mylanta Double Strength 10 ml PO Q4H PRN 08/03/24 11/17/24 History [id number]/5ml Patiromer Calcium Sorbitex 8.4 gm PO TH@1200 08/03/24 11/17/24 History [Veltassa] Semaglutide [Ozempic] 0.25 mg SQ WE@2130 08/03/24 11/17/24 History allopurinoL [Zyloprim] 100 mg PO DAILY@0808/03/24 11/17/24 History Albuterol Nebulized [Ventolin 2.5 mg INHALATION RT-TID PRN ml 08/13/24 11/17/24 Rx Nebulized] Ipratropium-Albuterol Nebulize 3 ml INHALATION RT-Q4H PRN each 08/13/24 11/17/24 Rx [Duoneb 0.5 mg-3 mg/3 ml Soln] ALPRAZolam [Xanax] 0.25 mg PO DAILY@1700 11/17/24 11/17/24 History Ascorbic Acid [Vitamin C] 250 mg PO DAILY@0811/17/24 11/17/24 History Collagenase [Santyl Ointment] 1 applic TOPICAL DAILY 11/17/24 11/17/24 History HYDROcodone/APAP 5-325MG [[place] 1 tab PO Q24H PRN 11/17/24 11/17/24 History 5-325] Hydrophilic Cream [Triad (Kerodex 1 applic TOPICAL TID 11/17/24 11/17/24 History geq)] Lidocaine 5% Cream 1 applic TOPICAL DAILY PRN 11/17/24 11/17/24 History Vashe Wound Cleanser 1 applic TOPICAL DAILY PRN 11/17/24 11/17/24 History Vashe Wound Cleanser 1 applic TOPICAL MOWEFR 11/17/24 11/17/24 History Allergies Allergy/AdvReac Type Severity Reaction Status Date / Time Sulfa (Sulfonamide Allergy Anaphylaxis Verified 11/17/24 12:17 Antibiotics) Physical Exam Vitals: Vital Signs Temp Pulse Resp BP Pulse Ox 11/17/24 13:41 95 18 93/56 96 11/17/24 12:18 94 20 91/57 96 11/17/24 12:05 90/48 11/17/24 12:00 84/49 11/17/24 11:42 94 20 82/49 96 11/17/24 11:12 96 20 76/52 95 11/17/24 10:24 98.3 F 101 H 20 74/38 94 L 11/17/24 09:35 105 H 28 H 80/61 97 11/17/24 09:18 106 H 30 H 73/51 97 11/17/24 09:00 101.9 F H 11/17/24 08:31 101 H 30 H 81/46 98 11/17/24 08:09 98.4 F 120 H 30 H 78/41 97 Intake and Output 11/16/24 11/17/24 11/17/24 22:59 06:59 14:59 Intake Total 1.106 Balance 1.106 Intake: Intake, IV Titration 1.106 Amount Norepinephrine 8 mg In 1.106 Sodium Chloride 0.9% 250 ml @ 0.03 MCG/KG/MIN 3. 686 mls/hr IV .Q24H [facility] Rx#:[id number] Other: Weight 63.503 kg GENERAL DESCRIPTION: Elderly female lying in bed, no distress. No tachypnea or accessory muscle of respiration use. HEENT: Shows Pallor , no scleral icterus. Oral mucous membrane is dry. NECK: Trachea central, no thyromegaly. LUNGS: Unlabored breathing. Clear to auscultation anteriorly. No wheeze or crackle. HEART: S1, S2, regular rate and rhythm. No loud murmur ABDOMEN: Soft, no tenderness , guarding or rigidity, no organomegaly EXTREMITIES: Left heel with a stage III pressure ulcer with some slough tissue SKIN: No rash, no masses palpable. NEUROLOGICAL: The patient is lethargic but arousable orientation level albuterol Results CBC & Chem 7: 11/18/24 06:00 11/18/24 06:00 Labs: Abnormal Lab Results - Last 24 Hours (Table) 11/17/24 11/17/24 11/17/24 Range/Units 08:30 08:30 08:30 WBC 13.40 H (4.50-10.00) 10*3/uL RBC 3.40 L (4.10-5.20) 10*6/uL Hgb 9.3 L (12.0-15.0) g/dL Hct 29.0 L (37.2-46.3) % MPV 9.3 L (9.5-12.2) fL Immature Gran # 0.05 H (0.00-0.04) 10*3/uL Neutrophils # 11.47 H (1.80-7.70) 10*3/uL Eosinophils # 0.01 L (0.04-0.35) 10*3/uL VBG HCO3 (24-28) mmol/L Sodium 132 L (137-145) mmol/L Potassium 5.7 H (3.5-5.1) mmol/L Carbon Dioxide 21 L (22-30) mmol/L BUN 76 H (7-17) mg/dL Creatinine 1.35 H (0.52-1.04) mg/dL Glucose 219 H (74-99) mg/dL AST 54 H (14-36) U/L ALT 95 H (4-34) U/L Alkaline Phosphatase 148 H (38-126) U/L Troponin I 1.110 H* (0.000-0.034) ng/mL Total Protein 6.0 L (6.3-8.2) g/dL Albumin 2.9 L (3.5-5.0) g/dL Urine Opiates Screen (NotDetected) U Benzodiazepines Scrn (NotDetected) 11/17/24 11/17/24 11/17/24 Range/Units 08:30 09:01 11:45 WBC (4.50-10.00) 10*3/uL RBC (4.10-5.20) 10*6/uL Hgb (12.0-15.0) g/dL Hct (37.2-46.3) % MPV (9.5-12.2) fL Immature Gran # (0.00-0.04) 10*3/uL Neutrophils # (1.80-7.70) 10*3/uL Eosinophils # (0.04-0.35) 10*3/uL VBG HCO3 23 L (24-28) mmol/L Sodium (137-145) mmol/L Potassium (3.5-5.1) mmol/L Carbon Dioxide (22-30) mmol/L BUN (7-17) mg/dL Creatinine (0.52-1.04) mg/dL Glucose (74-99) mg/dL AST (14-36) U/L ALT (4-34) U/L Alkaline Phosphatase (38-126) U/L Troponin I 2.200 H* (0.000-0.034) ng/mL Total Protein (6.3-8.2) g/dL Albumin (3.5-5.0) g/dL Urine Opiates Screen Detected H (NotDetected) U Benzodiazepines Scrn Detected H (NotDetected) Assessment and Plan (1) Non healing left heel wound Current Visit: Yes Status: Acute Code(s): S91.302A - UNSPECIFIED OPEN WOUND, LEFT FOOT, INITIAL ENCOUNTER SNOMED Code(s): 438043570 (2) Septic shock Current Visit: Yes Status: Acute Code(s): A41.9 - SEPSIS, UNSPECIFIED ORGANISM; R65.21 - SEVERE SEPSIS WITH SEPTIC SHOCK SNOMED Code(s): 86790606 (3) Urinary tract infection Current Visit: Yes Status: Acute Code(s): N39.0 - URINARY TRACT INFECTION, SITE NOT SPECIFIED SNOMED Code(s): 09936596 Plan: 1patient [facility] with sepsis in this patient who did have fever tachycardia tachypnea hypotension elevated white count meeting criteria for SIRS source is likely urinary as the patient has significantly positive UA plus minus infected left heel pressure ulcer with a previous history of MRSA infection to the left heel 2-sulfa allergy 3-blood local and urine culture has been obtained and results will be followed 4-patient to be empirically treated with vancomycin pharmacy to dose and cefepime while waiting for the culture to be finalized Family at the bedside question concern answered We will follow on clinical condition and cultures to further adjust medication if needed Thank you for this consultation we will follow the patient along with you Dictation was produced using [employer] dictation software. please excuse any grammatical, word or spelling errors. Time with Patient: Greater than 30
--- NOTE | 2024-11-17 23:45 | HP ---
HISTORY AND PHYSICAL CHIEF COMPLAINT: Change in mental status and hypotension. HISTORY OF PRESENT ILLNESS: Thi9s 84-year-old woman with a past medical history of multiple medical problems had left leg infection. The patient in the ECF. Apparently, the ECF noted hypoxia, hypotension and fever. The patient was taken to [facility] for further evaluation and treatment. The patient was found to have significant cellulitis of the left leg and the patient is started on Levophed and IV fluids. The patient had been admitted for further evaluation and treatment at this time. The patient is also complaining of neck pain. I would also recommend CT scan of the neck to rule out any acute abnormality. The patient also had low ejection fraction because of cardiomyopathy and troponin is also elevated at 1.[address] elevation myocardial infarction also. The patient is mildly confused, but able to give a sketchy history at this time. The patient also had renal failure, hyperkalemia as well. PAST MEDICAL HISTORY: Reviewed, includes recent cellulitis, history of diabetes mellitus, CHF, dementia. Rest of the history and chart is also reviewed. HOME MEDICATIONS: Reviewed, include Lasix. Doses and rest of medications reviewed. ALLERGIES: Sulfa. FAMILY HISTORY: Could not be taken because of change in mental status. SOCIAL HISTORY: Could not be taken because of change in mental status. PHYSICAL EXAMINATION: VITAL SIGNS: Pulse 95, blood pressure 93/50, and respirations 18. HEENT: Conjunctivae pale. NECK: No JVD. CARDIOVASCULAR: S1, S2. RESPIRATORY: Breath sounds diminished in the bases. Scattered rhonchi. ABDOMEN: Soft, nontender. LEGS: Significant infection of the left leg present. NERVOUS SYSTEM: Diffusely weak. Movement of the neck is neck is slightly painful. LABORATORY DATA: WBC 13.2. Rest of labs are noted. ASSESSMENT: 1. Possible sepsis with hypotension and fever and undetermined etiology, possible from the acute on chronic cellulitis on the left leg. 2. Rule out osteomyelitis. 3. Troponin 0.200, possible acute [id number] elevation myocardial infarction. 4. Possible acute urinary tract infection. 5. Acute renal failure with acute tubular necrosis and hyperkalemia. 6. Neck pain, rule out degenerative joint disease/ neck abscess. 7. Elevated WBC. 8. Anemia, normocytic. 9. History of coronary artery disease, CABG stent. 10.History of congestive heart failure. 11.Dementia. 12.Diabetes mellitus, type 2. 13.History of pneumonia. 14.Multiple complex medical issues. 15.History of AICD. RECOMMENDATIONS: This 84-year-old woman presented with multiple complex medical issues as mentioned earlier. At this time, I would recommend initiate broad-spectrum IV antibiotics. The patient is started cefepime and Infectious Disease evaluation, cultures, CAT scan of the neck and brain, Cardiology consultation, IV heparin. Guarded prognosis because of multiple complex medical issues. For further recommendations, see orders for details. Discussed with the family at the bedside at length. MMODL / IJN: [id number] / [place]
[2024-11-18] MEDS: SODIUM CHLORIDE 0.9% 1,000 ML IV SCH (00:38)
[2024-11-18] MEDS ORDERED: DEXTROSE 50% SYRINGE 50 ML IVP PRN ×2 (01:02)
--- NOTE | 2024-11-18 01:02 | P.CNPUL ---
History of Present Illness Consult date: 11/18/24 Requesting physician: David Estevez Reason for consult: other (ICU management) Chief complaint: Altered mental status, hypotension History of present illness: Patient is 84-year-old female sent in by EMS from her prison, [facility], yesterday after being noted to be confused, lethargic, with low blood pressures. She was tachycardic with a temperature of 100.8 F. Concerns for sepsis. On arrival, she was hypotensive, fluid resuscitated with a total of 3 L crystalloid fluid. Norepinephrine was started as the blood pressure did not respond to fluid alone. Started on a combination of cefepime and vancomycin for broad- spectrum antibiotic coverage. Serial troponins were elevated, and patient was also diagnosed with acute non-ST elevation [place] and started on IV heparin per protocol. 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 Of note, had a recent hospitalization back in July, for sepsis and CHF exacerbation. MRSA was isolated in her blood. SILVIANO done on 08/10/2024 did not show any vegetation. There was a severely reduced left ventricular ejection fraction of 30 to 35%, moderate mitral and tricuspid regurgitation with severe pulmonary hypertension. Mild to moderate aortic regurgitation. Treated with IV antibiotics. She also has history of ischemic cardiomyopathy, biventricular AICD, previous CABG, hypertension, hyperlipidemia, diabetes mellitus type 2, dementia, among other debilitating comorbidities. Workup in the emergency department including chest x-ray showing stable pulmonary vascular congestion with scattered infiltrates and small effusions suggestive of congestive heart failure. X-ray left foot with soft tissue wound over the heel without evidence of osseous erosion. Urinalysis was positive for pyuria and bacteria. CBC with a WBC count of 13.4, hemoglobin 9.3, platelets 439. CMP: Sodium 132, potassium 5.7, chloride 98, serum bicarb 21, BUN 76, creatinine 1.35, glucose 219. LFTs mildly elevated. Troponins elevated at 1.11, 2.2, 4.3, and 5.5 respectively. EKG showing a ventricularly paced rhythm. IV heparin continues per protocol. VBG with a pCO2 of 39 and pH of 7.38. Viral 4 Plex negative for influenza A/B, RSV, COVID of note, on her previous hospitalization in July was positive for RSV. Currently, patient is being observed in the intensive care unit. She is currently awake and alert. She is oriented to self and place. Does not recall events prior to coming to the hospital. I am told this could be her baseline. She does have dementia and [facility]icept [facility] the [facility]. Denies any chest pain. IV heparin continues per protocol. Blood pressure is being supported with norepinephrine which is infusing at 0.04 mcg/kg/min. Previously febrile with a Tmax of 101.9 F, and this is down and currently normothermic. Urinary catheter was placed which is draining clear urine. Normal saline to be started at 50 mL/h. pancultures are pending. Patient previously complaining of neck pain, however, denies this to me. She has a CT of the neck and chest ordered. No respiratory distress or stridor. On room air. Review of Systems ROS unobtainable: due to mental status Past Medical History Past Medical History: Coronary Artery Disease (CAD), Heart Failure, Dementia, D iabetes Mellitus, Hypertension, Myocardial Infarction ([place]), Pneumonia, Vascular Disorder Additional Past Medical History / Comment(s): Pt recently admitted to [facility] on 03/14/21 with CHF/L pleural effusion. Other hx: Chronic L calf wound/WCC, NIDM type II, neuropathy L foot/leg, cardiomyopathy/sees Dr Knight in [place], MIs, mild cognitive impairment, incontinence, iron anemia, hypmagnesemia Last Myocardial Infarction Date:: unsure History of Any Multi-Drug Resistant Organisms: MRSA Date of last positivie culture/infection: 08/06/24 MDRO Source:: blood; Left Foot & Leg Past Surgical History: AICD, Bladder Surgery, Coronary Bypass/CABG, Heart C atheterization, Heart Catheterization With Stent, Hysterectomy, Joint Replacement, Pacemaker Additional Past Surgical History / Comment(s): 10/2020 AICD/pacer, PCI stents, 2010 CABG 3 vessel, L leg wound I&D, bkadder suspension, ovarian cyst removal, D&C, rectocele, colonoscopy, total r knee arthroplasty. Past Anesthesia/Blood Transfusion Reactions: No Reported Reaction Date of Last Stent Placement:: unknown Type of Cardiac Device: AICD Device Placement Date:: 2020 Past Psychological History: No Psychological Hx Reported Smoking Status: Never smoker Past Alcohol Use History: None Reported Past Drug Use History: None Reported - Past Family History Father Family Medical History: No Reported History Additional Family Medical History / Comment(s): Father had heart problems. He chewed tobacco, smoked and drank quit a bit of alcohol. Mother Family Medical History: Diabetes Mellitus Medications and Allergies Home Medications Medication Instructions Recorded Confirmed Type Aspirin EC [Ecotrin Low Dose] 81 mg PO DAILY@0800 03/14/21 11/17/24 History Donepezil [Aricept] 10 mg PO HS@2100 03/14/21 11/17/24 History Isosorbide Mononitrate ER [Imdur] 30 mg PO DAILY@0800 03/14/21 11/17/24 History Magnesium Oxide 400 mg PO DAILY@0800 03/14/21 11/17/24 History Benzocaine/Menthol [Dermoplast 1 spray TOPICAL BID PRN 04/16/21 11/17/24 History Pain Relieving [place]] Acetaminophen Tab [Tylenol] 650 mg PO Q6HR PRN tab 04/28/21 11/17/24 Rx Famotidine [Pepcid] 20 mg PO DAILY@0800 05/07/21 11/17/24 History INSULIN ASPART (NovoLOG) [NovoLOG 3 unit SQ BID@1100,1700 05/07/21 11/17/24 History (formulary)] L.acidoph,Paracasei, B.lactis 1 cap PO DAILY@0800 05/07/21 11/17/24 History [Probiotic] Melatonin 3 mg PO DAILY PRN 05/07/21 11/17/24 History Ondansetron [Zofran] 4 mg PO TID PRN 05/07/21 11/17/24 History Spironolactone [Aldactone] 12.5 mg PO DAILY@0800 05/07/21 11/17/24 History bisacodyL [Dulcolax] 10 mg RECTAL DAILY PRN 05/07/21 11/17/24 History HYDROcodone/APAP 5-325MG [[place] 1 tab PO BID@0800,1700 06/03/21 11/17/24 History 5-325] Atorvastatin [Lipitor] 40 mg PO HS@2100 10/23/21 11/17/24 History Empagliflozin [Jardiance] 10 mg PO DAILY@0800 10/23/21 11/17/24 History Furosemide [Lasix] 40 mg PO DAILY@0800 10/23/21 11/17/24 History Emmanuel Packet 1 packet PO BID@0800,1700 10/23/21 11/17/24 History Sacubitril/Valsartan [Entresto 24 1 tab PO BID@0800,1700 10/23/21 11/17/24 History mg-26 mg Tablet] carvediloL [Coreg] 6.25 mg PO BID@0800,1700 10/23/21 11/17/24 History Cholecalciferol (Vitamin D3) 100 mcg PO DAILY@0800 08/03/24 11/17/24 History [Vitamin D3 (50 Mcg = 2000 Iu)] Eucerin Advanced Repair Cream 1 applic TOPICAL DAILY 08/03/24 11/17/24 History Folic Acid 0.4 mg PO DAILY@0800 08/03/24 11/17/24 History INSULIN ASPART (NovoLOG) [NovoLOG See Protocol SQ ACHS 08/03/24 11/17/24 History (formulary)] Insulin Degludec [Tresiba 20 units SQ HS@212908/03/24 11/17/24 History Flextouch U-100 Pen] Lactulose 10 gm PO BID@0800,1700 08/03/24 11/17/24 History Lidocaine 5% Cream 1 applic TOPICAL WE PRN 08/03/24 11/17/24 History Liquacel 30 ml PO DAILY@0800 08/03/24 11/17/24 History Loperamide [Imodium] 2 mg PO Q6H PRN 08/03/24 11/17/24 History Magnesium Hydroxide [Milk of 7,200 mg PO Q2D PRN 08/03/24 11/17/24 History Magnesia Concentrate] Multivitamins, Thera [Multivitamin 1 tab PO DAILY@1700 08/03/24 11/17/24 History (formulary)] Mylanta Double Strength 10 ml PO Q4H PRN 08/03/24 11/17/24 History [id number]/5ml Patiromer Calcium Sorbitex 8.4 gm PO TH@1200 08/03/24 11/17/24 History [Veltassa] Semaglutide [Ozempic] 0.25 mg SQ WE@212908/03/24 11/17/24 History allopurinoL [Zyloprim] 100 mg PO DAILY@0808/03/24 11/17/24 History Albuterol Nebulized [Ventolin 2.5 mg INHALATION RT-TID PRN ml 08/13/24 11/17/24 Rx Nebulized] Ipratropium-Albuterol Nebulize 3 ml INHALATION RT-Q4H PRN each 08/13/24 11/17/24 Rx [Duoneb 0.5 mg-3 mg/3 ml Soln] ALPRAZolam [Xanax] 0.25 mg PO DAILY@1700 11/17/24 11/17/24 History Ascorbic Acid [Vitamin C] 250 mg PO DAILY@0811/17/24 11/17/24 History Collagenase [Santyl Ointment] 1 applic TOPICAL DAILY 11/17/24 11/17/24 History HYDROcodone/APAP 5-325MG [[place] 1 tab PO Q24H PRN 11/17/24 11/17/24 History 5-325] Hydrophilic Cream [Triad (Kerodex 1 applic TOPICAL TID 11/17/24 11/17/24 History geq)] Lidocaine 5% Cream 1 applic TOPICAL DAILY PRN 11/17/24 11/17/24 History Vashe Wound Cleanser 1 applic TOPICAL DAILY PRN 11/17/24 11/17/24 History Vashe Wound Cleanser 1 applic TOPICAL MOWEFR 11/17/24 11/17/24 History Allergies Allergy/AdvReac Type Severity Reaction Status Date / Time Sulfa (Sulfonamide Allergy Anaphylaxis Verified 11/17/24 12:17 Antibiotics) Physical Exam Vitals: Vital Signs Temp Pulse Pulse Resp BP BP Pulse Ox 11/17/24 23:00 87 14 101/49 100 11/17/24 22:45 90 10 L 89/52 100 11/17/24 22:30 91 24 102/52 99 11/17/24 22:15 89 27 H 99/49 100 11/17/24 22:00 89 26 H 93/52 100 11/17/24 21:45 90 27 H 97/52 100 11/17/24 21:30 90 25 H 101/52 100 11/17/24 21:15 90 13 97/58 100 11/17/24 21:00 90 15 90/61 100 11/17/24 20:45 92 24 99/48 100 11/17/24 20:30 90 7 L 90/50 100 11/17/24 20:15 90 15 99/60 100 11/17/24 20:00 92 20 93/53 100 11/17/24 19:45 89 18 95/49 100 11/17/24 19:30 90 20 91/56 100 11/17/24 19:15 89 16 100/50 100 11/17/24 19:00 98.1 F 91 22 96/55 100 11/17/24 18:40 93 17 105/49 100 11/17/24 18:30 90 16 100/53 99 11/17/24 18:20 93 18 100/53 100 11/17/24 18:18 92 18 104/51 99 11/17/24 17:50 92 24 99/55 98 11/17/24 17:40 97 20 103/52 99 11/17/24 17:30 90 20 101/51 99 11/17/24 17:20 92 24 97/55 99 11/17/24 17:10 91 24 102/52 98 11/17/24 17:00 90 25 H 100/58 98 11/17/24 16:50 88 26 H 99/54 99 11/17/24 16:45 93 20 102/57 98 11/17/24 16:40 90 24 97/67 98 11/17/24 16:30 98.1 F 93 95 24 105/57 90/61 97 11/17/24 16:15 93 20 105/57 98 11/17/24 16:00 89 22 100/56 98 11/17/24 15:59 90 22 102/54 97 11/17/24 13:41 95 18 93/56 96 11/17/24 12:18 94 20 91/57 96 11/17/24 12:05 90/48 11/17/24 12:00 84/49 11/17/24 11:42 94 20 82/49 96 11/17/24 11:12 96 20 76/52 95 11/17/24 10:24 98.3 F 101 H 20 74/38 94 L 11/17/24 09:35 105 H 28 H 80/61 97 11/17/24 09:18 106 H 30 H 73/51 97 11/17/24 09:00 101.9 F H 11/17/24 08:31 101 H 30 H 81/46 98 11/17/24 08:09 98.4 F 120 H 30 H 78/41 97 Intake and Output 11/17/24 11/17/24 11/18/24 14:59 22:59 06:59 Intake Total 1.106 Output Total 135 40 Balance 1.106 -135 -40 Intake: Intake, IV Titration 1.106 Amount Norepinephrine 8 mg In 1.106 Sodium Chloride 0.9% 250 ml @ 0.03 MCG/KG/MIN 3. 686 mls/hr IV .Q24H [facility] Rx#:[id number] Output: Urine 135 40 Other: Voiding Method Indwelling Catheter Weight 63.503 kg 63.503 kg GENERAL EXAM: Alert, 84-year-old female, comfortable in no apparent distress. HEAD: Normocephalic and atraumatic EYES: Normal reaction of pupils, equal size. NOSE: Clear with pink turbinates. THROAT: No erythema or exudates. NECK: No masses, no JVD. CHEST: No chest wall deformity. Left chest implanted AICD/pacemaker generator. Remote appearing sternotomy incision. LUNGS: Equal air entry with no crackles, wheeze, rhonchi or dullness. On room air. No conversational dyspnea or accessory muscle use.. CVS: S1 and S2 normal with no audible murmur, regular rhythm. No extra heart sounds ABDOMEN: No hepatosplenomegaly, active bowel sounds, no guarding or rigidity. SPINE: No scoliosis or deformity SKIN: No rashes CENTRAL NERVOUS SYSTEM: No focal deficits, tone is normal in all 4 extremities. EXTREMITIES: There is mild nonpitting lower extremity edema bilaterally. Left heel wound dressed with new dressing. No clubbing or cyanosis. Peripheral pulses are intact. Results - Laboratory Findings CBC and BMP: 11/17/24 08:30 11/17/24 08:30 PT/INR, D-dimer PT 12.3 sec (10.0-12.5) 11/17/24 08:30 INR 1.1 (<1.2) 11/17/24 08:30 D-Dimer 2.07 mg/L FEU (<0.60) H 11/17/24 16:37 Abnormal lab findings: Abnormal Labs 11/17/24 11/17/24 11/17/24 08:20 08:30 08:30 WBC 13.40 H RBC 3.40 L Hgb 9.3 L Hct 29.0 L MPV 9.3 L Immature Gran # 0.05 H Neutrophils # 11.47 H Eosinophils # 0.01 L APTT D-Dimer VBG HCO3 Sodium 132 L Potassium 5.7 H Carbon Dioxide 21 L BUN 76 H Creatinine 1.35 H Glucose 219 H POC Glucose (mg/dL) Plasma Lactic Acid Clem 4.5 H* AST 54 H ALT 95 H Alkaline Phosphatase 148 H Troponin I Total Protein 6.0 L Albumin 2.9 L Urine Appearance Urine Protein Urine Glucose (UA) Urine Blood Ur Leukocyte Esterase Urine RBC Urine WBC Urine WBC Clumps Ur Squamous Epith Cells Urine Bacteria Urine Mucus Urine Opiates Screen U Benzodiazepines Scrn 11/17/24 11/17/24 11/17/24 08:30 08:30 09:01 WBC RBC Hgb Hct MPV Immature Gran # Neutrophils # Eosinophils # APTT D-Dimer VBG HCO3 23 L Sodium Potassium Carbon Dioxide BUN Creatinine Glucose POC Glucose (mg/dL) Plasma Lactic Acid Clem AST ALT Alkaline Phosphatase Troponin I 1.110 H* Total Protein Albumin Urine Appearance Urine Protein Urine Glucose (UA) Urine Blood Ur Leukocyte Esterase Urine RBC Urine WBC Urine WBC Clumps Ur Squamous Epith Cells Urine Bacteria Urine Mucus Urine Opiates Screen Detected H U Benzodiazepines Scrn Detected H 11/17/24 11/17/24 11/17/24 11:45 14:06 15:29 WBC RBC Hgb Hct MPV Immature Gran # Neutrophils # Eosinophils # APTT D-Dimer VBG HCO3 Sodium Potassium Carbon Dioxide BUN Creatinine Glucose POC Glucose (mg/dL) Plasma Lactic Acid Clem AST ALT Alkaline Phosphatase Troponin I 2.200 H* 4.280 H* Total Protein Albumin Urine Appearance Turbid H Urine Protein 1+ H Urine Glucose (UA) 4+ H Urine Blood Trace H Ur Leukocyte Esterase Large H Urine RBC 6 H Urine WBC >182 H Urine WBC Clumps Many H Ur Squamous Epith Cells 12 H Urine Bacteria Occasional H Urine Mucus Rare H Urine Opiates Screen U Benzodiazepines Scrn 11/17/24 11/17/24 11/17/24 16:37 17:44 20:25 WBC RBC Hgb Hct MPV Immature Gran # Neutrophils # Eosinophils # APTT D-Dimer 2.07 H VBG HCO3 Sodium Potassium Carbon Dioxide BUN Creatinine Glucose POC Glucose (mg/dL) 256 H Plasma Lactic Acid Clem AST ALT Alkaline Phosphatase Troponin I 5.450 H* Total Protein Albumin Urine Appearance Urine Protein Urine Glucose (UA) Urine Blood Ur Leukocyte Esterase Urine RBC Urine WBC Urine WBC Clumps Ur Squamous Epith Cells Urine Bacteria Urine Mucus Urine Opiates Screen U Benzodiazepines Scrn 11/17/24 20:25 WBC RBC Hgb Hct MPV Immature Gran # Neutrophils # Eosinophils # APTT 45.6 H D-Dimer VBG HCO3 Sodium Potassium Carbon Dioxide BUN Creatinine Glucose POC Glucose (mg/dL) Plasma Lactic Acid Clem AST ALT Alkaline Phosphatase Troponin I Total Protein Albumin Urine Appearance Urine Protein Urine Glucose (UA) Urine Blood Ur Leukocyte Esterase Urine RBC Urine WBC Urine WBC Clumps Ur Squamous Epith Cells Urine Bacteria Urine Mucus Urine Opiates Screen U Benzodiazepines Scrn - Diagnostic Findings Chest x-ray: image reviewed Assessment and Plan Assessment: Sepsis, septic shock, refractory to fluid resuscitation, currently requiring low-dose norepinephrine Acute febrile illness Possible UTI 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 There was a severely reduced left ventricular ejection fraction of 30 to 35%, moderate mitral and tricuspid regurgitation with severe pulmonary hypertension. Mild to moderate aortic regurgitation. Treated with IV vancomycin Acute non-ST elevation [place], currently on IV heparin per protocol Ischemic cardiomyopathy, as outlined above History of implanted AICD/pacemaker History of coronary artery disease with previous CABG History of hypertension History of hyperlipidemia Diabetes mellitus, type II Acute kidney injury, possibly secondary to hypotension/ATN Hyperkalemia, secondary to above History of RSV tracheobronchitis July, Chronic normocytic, normochromic anemia, hemoglobin stable at 9.3 g/dL Dementia, takes Aricept on outpatient basis Plan: Patient's medications, labs, imaging reviewed Continue norepinephrine for blood pressure support and a MAP of 65 mmHg or greater Continue broad-spectrum antibiotics in the form of cefepime and pharmacy to dose vancomycin Pancultures pending, including wound cultures Continue IV heparin per protocol Recommended follow-up with echocardiogram Cardiology is consulted and managing Heparin for DVT prophylaxis Protonix for GI prophylaxis Add sliding scale insulin for blood glucose control Case reviewed with my supervising physician, additional recommendations forthcoming I have personally seen and examined the patient, performed the documentation and the assessment and plan as written. Number of minutes spent on the visit:20 Time with Patient: Greater than 30
[2024-11-18] MEDS: CEFEPIME 1 GM in SODIUM CHLORIDE 0.9% 50 ML IVPB SCH (01:39)
[2024-11-18 06:28] LABS: ALT 216 U/L (4-34); AST 148 U/L (14-36); African American GFR (CKD) 41 (>60 ml/min/1.73 sqM); Albumin 2.8 g/dL (3.5-5.0); Alkaline Phosphatase 182 U/L (38-126); Anion Gap 15 mmol/L; Blood Urea Nitrogen 83 mg/dL (7-17); Calcium 9.6 mg/dL (8.4-10.2); Carbon Dioxide 15 mmol/L (22-30); Chloride 106 mmol/L (98-107); Glucose 216 mg/dL (74-99); Non-African American GFR(CKD) 36 (>60 ml/min/1.73 sqM); Potassium 5.5 mmol/L (3.5-5.1); Sodium 136 mmol/L (137-145); Total Protein 6.0 g/dL (6.3-8.2)
[2024-11-18 06:30] LABS: Glucose,Whole Blood 241 mg/dL (70-110)
[2024-11-18] MEDS: INSULIN LISPRO (HumaLOG) 100 UNIT/ML 10 mL VL SQ SCH (06:48)
--- NOTE | 2024-11-18 07:01 | P.CRDCN ---
History of Present Illness Consult date: 11/18/24 History of present illness: The patient is an 85-year-old female patient who is known to our service from before with a past medical history significant for CAD status post CABG as well as ischemic cardiomyopathy status post AICD and also hypertension and dyslipidemia and diabetes and multiple comorbid conditions including chronic anemia. The patient is a resident at [facility]. She is somewhat poor historian. The patient was brought from the [facility] to the hospital because of low blood pressure associated with increasing in the short ness of breath and change in mental status. She was found to be hypoxic in the ER and she was admitted to the ICU and placed on oxygen. Also she was found to be hypotensive requiring norepinephrine to support her pressure. Also further evaluation was performed including troponin came to be abnormal. There is a concern about pulmonary embolism given the abnormal D-dimer and currently the patient is in process of having a CT scan of the chest. The EKG showed sinus with paced rhythm and also the patient is tachycardic and she is in mild hypoxic respiratory failure and mild respiratory distress. Hemodynamically she still unstable requiring small dose of norepinephrine. No symptoms of chest pain or chest discomfort beside the shortness of breath. The physical examination is remarkable for mild respiratory distress with regular rate and rhythm and distant heart sounds and soft systolic murmur and diminished breathing sounds bilaterally and mild bilateral lower extremities edema noted with the chest x- ray showed evidence of pulmonary vascular congestions. No NT proBNP was ordered. The troponin is definitely elevated and currently she is on heparin. Assessment Change in mental status Low blood pressure requiring norepinephrine Mild respiratory distress Abnormal D-dimer CAD status post CABG Ischemic cardiomyopathy Status post AICD Multiple comorbid conditions Plan Continue IV heparin for now Follow-up with the CT scan of the chest Further risk stratification including an echocardiogram and NT proBNP Further recommendation to follow Past Medical History Past Medical History: Coronary Artery Disease (CAD), Heart Failure, Dementia, Diabetes Mellitus, Hypertension, Myocardial Infarction ([place]), Pneumonia, Vascular Disorder Additional Past Medical History / Comment(s): Pt recently admitted to [facility] on 03/14/21 with CHF/L pleural effusion. Other hx: Chronic L calf wound/WCC, NIDM type II, neuropathy L foot/leg, cardiomyopathy/sees Dr Knight in [place], MIs, mild cognitive impairment, incontinence, iron anemia, hypmagnesemia Last Myocardial Infarction Date:: unsure History of Any Multi-Drug Resistant Organisms: MRSA Date of last positivie culture/infection: 08/06/24 MDRO Source:: blood; Left Foot & Leg Past Surgical History: AICD, Bladder Surgery, Coronary Bypass/CABG, Heart Catheterization, Heart Catheterization With Stent, Hysterectomy, Joint Replacement, Pacemaker Additional Past Surgical History / Comment(s): 10/2020 AICD/pacer, PCI stents, 2010 CABG 3 vessel, L leg wound I&D, bkadder suspension, ovarian cyst removal, D&C, rectocele, colonoscopy, total r knee arthroplasty. Past Anesthesia/Blood Transfusion Reactions: No Reported Reaction Date of Last Stent Placement:: unknown Type of Cardiac Device: AICD Device Placement Date:: 2020 Past Psychological History: No Psychological Hx Reported Smoking Status: Never smoker Past Alcohol Use History: None Reported Past Drug Use History: None Reported - Past Family History Father Family Medical History: No Reported History Additional Family Medical History / Comment(s): Father had heart problems. He chewed tobacco, smoked and drank quit a bit of alcohol. Mother Family Medical History: Diabetes Mellitus Medications and Allergies Home Medications Medication Instructions Recorded Confirmed Type Aspirin EC [Ecotrin Low Dose] 81 mg PO DAILY@0800 03/14/21 11/17/24 History Donepezil [Aricept] 10 mg PO HS@2100 03/14/21 11/17/24 History Isosorbide Mononitrate ER [Imdur] 30 mg PO DAILY@0800 03/14/21 11/17/24 History Magnesium Oxide 400 mg PO DAILY@0800 03/14/21 11/17/24 History Benzocaine/Menthol [Dermoplast 1 spray TOPICAL BID PRN 04/16/21 11/17/24 History Pain Relieving [place]] Acetaminophen Tab [Tylenol] 650 mg PO Q6HR PRN tab 04/28/21 11/17/24 Rx Famotidine [Pepcid] 20 mg PO DAILY@0800 05/07/21 11/17/24 History INSULIN ASPART (NovoLOG) [NovoLOG 3 unit SQ BID@1100,1700 05/07/21 11/17/24 History (formulary)] L.acidoph,Paracasei, B.lactis 1 cap PO DAILY@0800 05/07/21 11/17/24 History [Probiotic] Melatonin 3 mg PO DAILY PRN 05/07/21 11/17/24 History Ondansetron [Zofran] 4 mg PO TID PRN 05/07/21 11/17/24 History Spironolactone [Aldactone] 12.5 mg PO DAILY@0800 05/07/21 11/17/24 History bisacodyL [Dulcolax] 10 mg RECTAL DAILY PRN 05/07/21 11/17/24 History HYDROcodone/APAP 5-325MG [[place] 1 tab PO BID@0800,1700 06/03/21 11/17/24 History 5-325] Atorvastatin [Lipitor] 40 mg PO HS@2100 10/23/21 11/17/24 History Empagliflozin [Jardiance] 10 mg PO DAILY@0800 10/23/21 11/17/24 History Furosemide [Lasix] 40 mg PO DAILY@0800 10/23/21 11/17/24 History Emmanuel Packet 1 packet PO BID@0800,1700 10/23/21 11/17/24 History Sacubitril/Valsartan [Entresto 24 1 tab PO BID@0800,1700 10/23/21 11/17/24 History mg-26 mg Tablet] carvediloL [Coreg] 6.25 mg PO BID@0800,1700 10/23/21 11/17/24 History Cholecalciferol (Vitamin D3) 100 mcg PO DAILY@0800 08/03/24 11/17/24 History [Vitamin D3 (50 Mcg = 2000 Iu)] Eucerin Advanced Repair Cream 1 applic TOPICAL DAILY 08/03/24 11/17/24 History Folic Acid 0.4 mg PO DAILY@0800 08/03/24 11/17/24 History INSULIN ASPART (NovoLOG) [NovoLOG See Protocol SQ ACHS 08/03/24 11/17/24 History (formulary)] Insulin Degludec [Tresiba 20 units SQ HS@2130 08/03/24 11/17/24 History Flextouch U-100 Pen] Lactulose 10 gm PO BID@0800,1700 08/03/24 11/17/24 History Lidocaine 5% Cream 1 applic TOPICAL WE PRN 08/03/24 11/17/24 History Liquacel 30 ml PO DAILY@0800 08/03/24 11/17/24 History Loperamide [Imodium] 2 mg PO Q6H PRN 08/03/24 11/17/24 History Magnesium Hydroxide [Milk of 7,200 mg PO Q2D PRN 08/03/24 11/17/24 History Magnesia Concentrate] Multivitamins, Thera [Multivitamin 1 tab PO DAILY@1700 08/03/24 11/17/24 History (formulary)] Mylanta Double Strength 10 ml PO Q4H PRN 08/03/24 11/17/24 History [id number]/5ml Patiromer Calcium Sorbitex 8.4 gm PO TH@1200 08/03/24 11/17/24 History [Veltassa] Semaglutide [Ozempic] 0.25 mg SQ WE@2130 08/03/24 11/17/24 History allopurinoL [Zyloprim] 100 mg PO DAILY@0800 08/03/24 11/17/24 History Albuterol Nebulized [Ventolin 2.5 mg INHALATION RT-TID PRN ml 08/13/24 11/17/24 Rx Nebulized] Ipratropium-Albuterol Nebulize 3 ml INHALATION RT-Q4H PRN each 08/13/24 11/17/24 Rx [Duoneb 0.5 mg-3 mg/3 ml Soln] ALPRAZolam [Xanax] 0.25 mg PO DAILY@1700 11/17/24 11/17/24 History Ascorbic Acid [Vitamin C] 250 mg PO DAILY@0800 11/17/24 11/17/24 History Collagenase [Santyl Ointment] 1 applic TOPICAL DAILY 11/17/24 11/17/24 History HYDROcodone/APAP 5-325MG [[place] 1 tab PO Q24H PRN 11/17/24 11/17/24 History 5-325] Hydrophilic Cream [Triad (Kerodex 1 applic TOPICAL TID 11/17/24 11/17/24 History geq)] Lidocaine 5% Cream 1 applic TOPICAL DAILY PRN 11/17/24 11/17/24 History Vashe Wound Cleanser 1 applic TOPICAL DAILY PRN 11/17/24 11/17/24 History Vashe Wound Cleanser 1 applic TOPICAL MOWEFR 11/17/24 11/17/24 History Allergies Allergy/AdvReac Type Severity Reaction Status Date / Time Sulfa (Sulfonamide Allergy Anaphylaxis Verified 11/17/24 12:17 Antibiotics) Physical Exam Vitals: Vital Signs Temp Pulse Pulse Resp BP BP Pulse Ox 11/18/24 06:00 103 H 29 H 105/57 100 11/18/24 05:45 96 27 H 102/64 100 11/18/24 05:30 101 H 46 H 105/54 100 11/18/24 05:15 94 29 H 102/50 100 11/18/24 05:00 96 26 H 106/51 100 11/18/24 04:45 95 14 99/53 100 11/18/24 04:30 96 31 H 99/57 100 11/18/24 04:15 89 29 H 105/81 100 11/18/24 04:00 98.3 F 93 31 H 106/60 100 11/18/24 03:45 92 25 H 111/91 100 11/18/24 03:30 96 26 H 105/61 100 11/18/24 03:15 88 29 H 97/65 100 11/18/24 03:00 91 26 H 105/56 100 11/18/24 02:45 92 23 103/50 100 11/18/24 02:30 90 21 106/52 100 11/18/24 02:15 89 30 H 111/50 100 11/18/24 02:00 90 21 103/65 100 11/18/24 01:45 92 26 H 105/51 100 11/18/24 01:30 90 28 H 108/62 100 11/18/24 01:15 84 23 103/69 100 11/18/24 01:00 89 17 105/52 100 11/18/24 00:45 86 21 113/51 100 11/18/24 00:35 87 26 H 113/51 100 11/18/24 00:30 90 19 106/51 100 11/18/24 00:15 90 22 107/49 100 11/18/24 00:00 98.2 F 87 22 105/47 100 11/17/24 23:45 87 38 H 101/47 100 11/17/24 23:30 91 25 H 111/51 99 11/17/24 23:15 91 36 H 104/50 100 11/17/24 23:00 87 14 101/49 100 11/17/24 22:45 90 10 L 89/52 100 11/17/24 22:30 91 24 102/52 99 11/17/24 22:15 89 27 H 99/49 100 11/17/24 22:00 89 26 H 93/52 100 11/17/24 21:45 90 27 H 97/52 100 11/17/24 21:30 90 25 H 101/52 100 11/17/24 21:15 90 13 97/58 100 11/17/24 21:00 90 15 90/61 100 11/17/24 20:45 92 24 99/48 100 11/17/24 20:30 90 7 L 90/50 100 11/17/24 20:15 90 15 99/60 100 11/17/24 20:00 92 20 93/53 100 11/17/24 19:45 89 18 95/49 100 11/17/24 19:30 90 20 91/56 100 11/17/24 19:15 89 16 100/50 100 11/17/24 19:00 98.1 F 91 22 96/55 100 11/17/24 18:40 93 17 105/49 100 11/17/24 18:30 90 16 100/53 99 11/17/24 18:20 93 18 100/53 100 11/17/24 18:18 92 18 104/51 99 11/17/24 17:50 92 24 99/55 98 11/17/24 17:40 97 20 103/52 99 11/17/24 17:30 90 20 101/51 99 11/17/24 17:20 92 24 97/55 99 11/17/24 17:10 91 24 102/52 98 11/17/24 17:00 90 25 H 100/58 98 11/17/24 16:50 88 26 H 99/54 99 11/17/24 16:45 93 20 102/57 98 11/17/24 16:40 90 24 97/67 98 11/17/24 16:30 98.1 F 93 95 24 105/57 90/61 97 11/17/24 16:15 93 20 105/57 98 11/17/24 16:00 89 22 100/56 98 11/17/24 15:59 90 22 102/54 97 11/17/24 13:41 95 18 93/56 96 11/17/24 12:18 94 20 91/57 96 11/17/24 12:05 90/48 11/17/24 12:00 84/49 11/17/24 11:42 94 20 82/49 96 11/17/24 11:12 96 20 76/52 95 11/17/24 10:24 98.3 F 101 H 20 74/38 94 L 11/17/24 09:35 105 H 28 H 80/61 97 11/17/24 09:18 106 H 30 H 73/51 97 11/17/24 09:00 101.9 F H 11/17/24 08:31 101 H 30 H 81/46 98 11/17/24 08:09 98.4 F 120 H 30 H 78/41 97 Intake and Output 11/17/24 11/17/24 11/18/24 14:59 22:59 06:59 Intake Total 1.106 100 477.431 Output Total 135 305 Balance 1.106 -35 172.431 Intake: IV 100 400 Sodium Chloride 0.9% 1, 100 400 000 ml @ 50 mls/hr IV . Q20H [facility]ERISE Rx#:[id number] Intake, IV Titration 1.106 77.431 Amount Norepinephrine 8 mg In 1.106 77.431 Sodium Chloride 0.9% 250 ml @ 0.03 MCG/KG/MIN 3. 686 mls/hr IV .Q24H [facility] Rx#:[id number] Output: Urine 135 305 Other: Voiding Method Indwelling Catheter Indwelling Catheter Weight 63.503 kg 63.503 kg 70.4 kg Results 11/17/24 08:30 11/17/24 08:30 Cardiac Enzymes 11/17/24 11/17/24 11/17/24 Range/Units 08:30 08:30 11:45 AST 54 H (14-36) U/L Troponin I 1.110 H* 2.200 H* (0.000-0.034) ng/mL 11/17/24 11/17/24 Range/Units 15:29 20:25 AST (14-36) U/L Troponin I 4.280 H* 5.450 H* (0.000-0.034) ng/mL Coagulation 11/17/24 11/17/24 11/18/24 Range/Units 08:30 20:25 05:40 PT 12.3 (10.0-12.5) sec APTT 22.5 45.6 H 33.8 H (22.0-30.0) sec CBC 11/17/24 Range/Units 08:30 WBC 13.40 H (4.50-10.00) 10*3/uL RBC 3.40 L (4.10-5.20) 10*6/uL Hgb 9.3 L (12.0-15.0) g/dL Hct 29.0 L (37.2-46.3) % Plt Count 439 (140-440) 10*3/uL Comprehensive Metabolic Panel 11/17/24 Range/Units 08:30 Sodium 132 L (137-145) mmol/L Potassium 5.7 H (3.5-5.1) mmol/L Chloride 98 (98-107) mmol/L Carbon Dioxide 21 L (22-30) mmol/L BUN 76 H (7-17) mg/dL Creatinine 1.35 H (0.52-1.04) mg/dL Glucose 219 H (74-99) mg/dL Calcium 10.2 (8.4-10.2) mg/dL AST 54 H (14-36) U/L ALT 95 H (4-34) U/L Alkaline Phosphatase 148 H (38-126) U/L Total Protein 6.0 L (6.3-8.2) g/dL Albumin 2.9 L (3.5-5.0) g/dL Current Medications Generic Name Dose Route Start Last Admin Trade Name Freq PRN Reason Stop Dose Admin Acetaminophen 650 mg 11/17/24 17:56 Acetaminophen Tab 325 Mg Tab PO Q4HR PRN Fever and/or Mild Pain Dextrose/Water 25 ml 11/18/24 01:02 Dextrose 50% Syringe 50 Ml IVP PER PROTOCOL PRN Hypoglycemia Protocol Dextrose/Water 50 ml 11/18/24 01:02 Dextrose 50% Syringe 50 Ml IVP PER PROTOCOL PRN Hypoglycemia Protocol Norepinephrine Bitartrate 8 mg 258 mls @ 3.686 mls/hr 11/17/24 11:15 11/18/24 04:09 / Sodium Chloride IV 0.02 mcg/kg/min .Q24H [facility] 2.458 mls/hr Titration Protocol 0.03 MCG/KG/MIN Heparin Sodium/Sodium Chloride 250 mls @ 7.62 mls/hr 11/17/24 11:45 11/17/24 13:36 25,000 unit/ Sodium Chloride IV 12 units/kg/hr .Q24H [facility]ISE 7.62 mls/hr Administration Protocol 12 UNITS/KG/HR Cefepime HCl 1 gm/ Sodium 50 mls @ 12.5 mls/hr 11/18/24 02:00 11/18/24 01:39 Chloride IVPB 12.5 mls/hr Q12H [facility] Administration Vancomycin HCl 1,250 mg/ 250 mls @ 125 mls/hr 11/18/24 10:00 Sodium Chloride IVPB 11/18/24 11:59 ONCE ONE Sodium Chloride 1,000 mls @ 50 mls/hr 11/17/24 18:00 11/18/24 00:38 Saline 0.9% IV Not Given .Q20H [facility] Insulin Human Lispro 0 unit 11/18/24 07:30 11/18/24 06:48 Insulin Lispro (Humalog) 100 Unit/Ml 10 Ml Vl SQ 2 unit ACHS [facility] Administration Protocol Miscellaneous Information 1 each 11/17/24 10:42 Vancomycin Iv Per Pharmacy 1 Each Misc MISCELLANE DIRECTED PRN Per Protocol Protocol Miscellaneous Information 1 each 11/17/24 17:56 Potassium Replacement Protocol 1 Each Misc MISCELLANE DAILY PRN Per Protocol Miscellaneous Information 1 each 11/17/24 17:56 Magnesium Replacement Protocol 1 Each Misc MISCELLANE DAILY PRN Per Protocol Protocol Miscellaneous Information 1 each 11/17/24 17:56 Phosphorus Replacement Protoco 1 Each Misc MISCELLANE DAILY PRN Per Protocol Protocol Naloxone HCl 0.2 mg 11/17/24 13:08 Naloxone 0.4 Mg/Ml 1 Ml Vial IV Q2M PRN Opioid Reversal Pantoprazole Sodium 40 mg 11/18/24 09:00 Pantoprazole 40 Mg/10 Ml Vial IV DAILY [facility] Intake and Output 11/17/24 11/17/24 11/18/24 14:59 22:59 06:59 Intake Total 1.106 100 477.431 Output Total 135 305 Balance 1.106 -35 172.431 Intake: IV 100 400 Sodium Chloride 0.9% 1, 100 400 000 ml @ 50 mls/hr IV . Q20H [facility] Rx#:[id number] Intake, IV Titration 1.106 77.431 Amount Norepinephrine 8 mg In 1.106 77.431 Sodium Chloride 0.9% 250 ml @ 0.03 MCG/KG/MIN 3. 686 mls/hr IV .Q24H [facility] Rx#:[id number] Output: Urine 135 305 Other: Voiding Method Indwelling Catheter Indwelling Catheter Weight 63.503 kg 63.503 kg 70.4 kg Patient Weight 11/18/24 06:59 Weight 70.4 kg 11/17/24 08:30 11/17/24 08:30
[2024-11-18 07:06] LABS: Basophils # (A) 0.04 10*3/uL (0.00-0.10); Basophils % (A) 0.2 %; Eosinophils # (A) 0.00 10*3/uL (0.04-0.35); Eosinophils % (A) 0.0 %; HCT 30.7 % (37.2-46.3); HGB 9.5 g/dL (12.0-15.0); Lymphocytes # (A) 1.64 10*3/uL (0.90-5.00); Lymphocytes % (A) 9.4 %; MCH 26.7 pg (27.0-32.0); MCHC 30.9 g/dL (32.0-37.0); MCV 86.2 fL (80.0-97.0); Monocytes # (A) 0.83 10*3/uL (0.20-1.00); Monocytes % (A) 4.7 %; Neutrophils # (A) 14.92 10*3/uL (1.80-7.70); Neutrophils % (A) 85.1 %; Platelet Count 501 10*3/uL (140-440); RBC 3.56 10*6/uL (4.10-5.20); RDW 15.7 % (11.5-14.5); WBC 17.54 10*3/uL (4.50-10.00)
--- NOTE | 2024-11-18 08:38 | CT ---
EXAMINATION TYPE: CT brain wo con CT DLP: 1097.4 mGycm, Automated exposure control for dose reduction was used. DATE OF EXAM: 11/18/2024 8:21 AM COMPARISON: CT brain 10/25/2021 CLINICAL INDICATION:Female, 84 years old with history of head and neck pain, Head and neck pain, extr emity weakness TECHNIQUE: Brain: Multiple axial CT images of the brain were obtained without IV contrast. . Coronal and sagitta l reformats reviewed. FINDINGS: Brain: Extra-axial spaces: No abnormal extra-axial fluid collections. Ventricular system: Dilatation in proportion to cerebral atrophy. Cerebral parenchyma: Cerebral atrophy. No acute intraparenchymal hemorrhage or mass effect. The broussard -white junction is well differentiated. Scattered hypoattenuating areas are seen within the periventr icular white matter. Multiple lacunar injury within the left thalamus. Cerebellum: Unremarkable. Mass effect: No evidence of midline shift. Intracranial vasculature: Atherosclerotic calcifications of the intracranial vessels. Soft tissues: Normal. Calvarium/osseous structures: No depressed skull fracture. Paranasal sinuses and mastoid air cells: Clear Visualized orbits: Orbital contents are intact. IMPRESSION: 1. No acute intracranial process. 2. Remote lacunar injury along with nonspecific mild white matter changes likely secondary to chronic microangiopathy. [facility], , 11/18/2024 8:36 AM
--- NOTE | 2024-11-18 08:57 | CT ---
EXAMINATION TYPE: CT neck chest without con CT DLP: 499.8 mGycm, Automated exposure control for dose reduction was used. DATE OF EXAM: 11/18/2024 8:22 AM COMPARISON: Chest radiograph 11/17/2024, CT abdomen and pelvis 08/04/2024, CT cervical spine 10/23/2021. CLINICAL INDICATION:Female, 84 years old with history of head and neck pain, extremity weakness;, Hea d and neck pain, extremity weakness TECHNIQUE: Standard CT of the neck and chest. Axial sections with coronal and sagittal reformats wer e obtained. Evaluation is limited due to lack of intravenous contrast. Contrast used:None Oral contrast used: without Oral Contrast FINDINGS: BRAIN: Visualized portions are grossly unremarkable. ORBITS: Unremarkable SINUSES: Grossly unremarkable. SPACES OF THE NECK: Clear and symmetric. MUSCULOSKELETAL: Erosive changes involving the inferior endplate of the C3 vertebral body and superio r endplate of the C4 vertebral body with increased anterior paravertebral space soft tissue/edema. In creased kyphosis at this region. The prevertebral space measures up to 1.6 cm in thickness. No gas id entified. At least mild spinal canal stenosis at this level. Multilevel posterior disc osteophyte com plexes at C4-C5, C5-C6 and C6-C7 resulting in at least mild spinal canal stenosis. Multilevel disc sp ara narrowing with endplate sclerosis and anterior osteophytosis. Multilevel facet arthropathy. LYMPH NODES: No pathologically enlarged lymph nodes identified.. VASCULAR STRUCTURES: Moderate plaque of the internal carotid arteries at the bifurcation with left gr eater than right. THORACIC INLET/AIRWAY: Airway is patent. The lung apices are clear. SOFT TISSUES/THYROID: Thyroid and remainder of the soft tissues are unremarkable. OTHER: none. LUNGS/ PLEURA: No pneumothorax. Trace left pleural effusion with associated atelectasis. Small right pleural effusion with right basilar consolidation and atelectasis redemonstrated. No suspicious pulmo nary nodule or mass identified. AIRWAY: Patent and unremarkable. HEART: Moderately enlarged. No pericardial effusion. Severe coronary arterial calcifications and/or s tents. Left anterior chest wall 3-lead cardiac pacemaking device with leads terminating in the right ventricle, right atrium and coronary sinus. MEDIASTINUM: No gross evidence of adenopathy. VASCULATURE: No aortic aneurysm. Mild to moderate atherosclerotic calcification of the aorta and its branches. Dilated main pulmonary artery suggesting pulmonary arterial hypertension. MUSCULOSKELETAL: No acute osseous abnormalities. Sternotomy wires. Healing right lateral nondisplaced ninth rib fracture with some callus formation. Fracture line still visible. Mild multilevel degenera tive disc disease. SOFT TISSUES/LYMPH NODES: Unremarkable. LOWER NECK: No significant findings. UPPER ABDOMEN: Posterior left renal superior pole exophytic 2.0 cm simple cyst. No follow-up recommen ded. Small hiatal hernia. IMPRESSION: 1. Abnormal destructive changes involving the C3 and C4 vertebral bodies with prominent prevertebral soft tissue thickening/edema. Etiologies include infectious processes with a destructive malignancy not excluded. Recommend further evaluation with MRI cervical spine with and without intravenous contr ast. 2. Healing right lateral nondisplaced ninth rib fracture with some callus formation. Fracture line i s still visible. 3. Similar small right pleural effusion with associated atelectasis/consolidation. Trace left pleura l effusion. 4. Moderate cardiomegaly with severe coronary artery calcifications and/or stents. [facility], , 11/18/2024 8:54 AM
[2024-11-18] MEDS: PANTOPRAZOLE 40 MG/10 ML VIAL IV SCH (09:11)
[2024-11-18] MEDS: HEPARIN SODIUM 1,000 UN/ML (10ML VL) IV PRN (09:12)
[2024-11-18] MEDS: NYSTATIN 100,000 UNIT/GM POWD 15 GM TOPICAL SCH (09:12)
[2024-11-18] MEDS: ACETAMINOPHEN TAB 325 MG TAB PO PRN (09:12)
[2024-11-18] MEDS: VANCOMYCIN 1,250 MG in SODIUM CHLORIDE 0.9% 250 ML IVPB ONE (10:54)
[2024-11-18] MEDS: HYDROcodone/APAP 5-325MG 1 EACH TAB PO STA (11:05)
[2024-11-18 12:09] LABS: NT-Pro-B-Type Natriuretic Pept 36500 pg/mL
--- NOTE | 2024-11-18 12:20 | P.PN ---
Subjective Progress Note Date: 11/18/24 Principal diagnosis: Reason for follow-up is left heel infected pressure ulcer and bacteremia Patient is a 84-year-old female with a past medical history significant for Coronary Artery Disease (CAD), Heart Failure, Dementia, Diabetes Mellitus, Hypertension, Myocardial Infarction (IN), Pneumonia, Vascular Disorder, history of left heel infected pressure ulcer and prison resident patient has been sent to the from the prison as the patient was having mental status changes fever and elevated white count. On today's evaluation that is 11/18/2024,the patient did have resolution of fever and is afebrile this morning patient remains to be requiring pressor support to maintain her blood pressure she is currently on 2 L nasal cannula oxygen she is more awake and alert today denies any chest pain shortness of breath or cough or any worsening pain to the left heel area. Patient white count 17.54, creatinine 1.38 liver enzymes are elevated blood culture positive for MRSA left leg cultures currently pending Objective - Vital Signs Vital signs: Vital Signs Temp 97.9 F 11/18/24 08:00 Pulse 97 11/18/24 09:30 Resp 34 H 11/18/24 09:30 BP 112/82 11/18/24 09:30 Pulse Ox 98 11/18/24 09:30 FiO2 Intake & Output 11/17/24 11/18/24 11/18/24 18:59 06:59 18:59 Intake Total 1.106 577.431 213.393 Output Total 30 410 Balance -28.894 167.431 213.393 Weight 63.503 kg 70.4 kg Intake: IV 500 50 Sodium Chloride 0.9% 1, 500 50 000 ml @ 50 mls/hr IV . Q20H [facility] Rx#:[id number] Intake, IV Titration 1.106 77.431 163.393 Amount Heparin Sod,Pork in 0.45% 146.558 NaCl 25,000 unit In 0.45 % NaCl 1 250ml.bag @ 12 UNITS/KG/HR 7.62 mls/hr IV .Q24H [facility] Rx#: [id number] Norepinephrine 8 mg In 1.106 77.431 16.835 Sodium Chloride 0.9% 250 ml @ 0.03 MCG/KG/MIN 3. 686 mls/hr IV .Q24H [facility] Rx#:[id number] Output: Urine 30 410 Other: Voiding Method Indwelling Catheter Indwelling Catheter - Exam GENERAL DESCRIPTION: An elderly female lying in bed in no distress RESPIRATORY SYSTEM: Unlabored breathing , decreased breath sounds at bases HEART: S1 S2 regular rate and rhythm , ABDOMEN: Soft , no tenderness EXTREMITIES: Left wound is currently dressed - Labs CBC & Chem 7: 11/18/24 06:00 11/18/24 06:00 Labs: Abnormal Lab Results - Last 24 Hours (Table) 11/17/24 11/17/24 11/17/24 Range/Units 08:20 11:45 14:06 WBC (4.50-10.00) 10*3/uL RBC (4.10-5.20) 10*6/uL Hgb (12.0-15.0) g/dL Hct (37.2-46.3) % MCH (27.0-32.0) pg MCHC (32.0-37.0) g/dL Plt Count (140-440) 10*3/uL Immature Gran # (0.00-0.04) 10*3/uL Neutrophils # (1.80-7.70) 10*3/uL Eosinophils # (0.04-0.35) 10*3/uL APTT (22.0-30.0) sec D-Dimer (<0.60) mg/L FEU Sodium (137-145) mmol/L Potassium (3.5-5.1) mmol/L Carbon Dioxide (22-30) mmol/L BUN (7-17) mg/dL Creatinine (0.52-1.04) mg/dL Glucose (74-99) mg/dL POC Glucose (mg/dL) (70-110) mg/dL Plasma Lactic Acid Clem 4.5 H* (0.7-2.0) mmol/L AST (14-36) U/L ALT (4-34) U/L Alkaline Phosphatase (38-126) U/L Troponin I 2.200 H* (0.000-0.034) ng/mL Total Protein (6.3-8.2) g/dL Albumin (3.5-5.0) g/dL Urine Appearance Turbid H (Clear) Urine Protein 1+ H (Negative) Urine Glucose (UA) 4+ H (Negative) Urine Blood Trace H (Negative) Ur Leukocyte Esterase Large H (Negative) Urine RBC 6 H (0-5) /hpf Urine WBC >182 H (0-5) /hpf Urine WBC Clumps Many H (None) /hpf Ur Squamous Epith Cells 12 H (0-4) /hpf Urine Bacteria Occasional H (None) /hpf Urine Mucus Rare H (None) /hpf 11/17/24 11/17/24 11/17/24 Range/Units 15:29 16:37 17:44 WBC (4.50-10.00) 10*3/uL RBC (4.10-5.20) 10*6/uL Hgb (12.0-15.0) g/dL Hct (37.2-46.3) % MCH (27.0-32.0) pg MCHC (32.0-37.0) g/dL Plt Count (140-440) 10*3/uL Immature Gran # (0.00-0.04) 10*3/uL Neutrophils # (1.80-7.70) 10*3/uL Eosinophils # (0.04-0.35) 10*3/uL APTT (22.0-30.0) sec D-Dimer 2.07 H (<0.60) mg/L FEU Sodium (137-145) mmol/L Potassium (3.5-5.1) mmol/L Carbon Dioxide (22-30) mmol/L BUN (7-17) mg/dL Creatinine (0.52-1.04) mg/dL Glucose (74-99) mg/dL POC Glucose (mg/dL) 256 H (70-110) mg/dL Plasma Lactic Acid Clem (0.7-2.0) mmol/L AST (14-36) U/L ALT (4-34) U/L Alkaline Phosphatase (38-126) U/L Troponin I 4.280 H* (0.000-0.034) ng/mL Total Protein (6.3-8.2) g/dL Albumin (3.5-5.0) g/dL Urine Appearance (Clear) Urine Protein (Negative) Urine Glucose (UA) (Negative) Urine Blood (Negative) Ur Leukocyte Esterase (Negative) Urine RBC (0-5) /hpf Urine WBC (0-5) /hpf Urine WBC Clumps (None) /hpf Ur Squamous Epith Cells (0-4) /hpf Urine Bacteria (None) /hpf Urine Mucus (None) /hpf 11/17/24 11/17/24 11/18/24 Range/Units 20:25 20:25 05:40 WBC (4.50-10.00) 10*3/uL RBC (4.10-5.20) 10*6/uL Hgb (12.0-15.0) g/dL Hct (37.2-46.3) % MCH (27.0-32.0) pg MCHC (32.0-37.0) g/dL Plt Count (140-440) 10*3/uL Immature Gran # (0.00-0.04) 10*3/uL Neutrophils # (1.80-7.70) 10*3/uL Eosinophils # (0.04-0.35) 10*3/uL APTT 45.6 H 33.8 H (22.0-30.0) sec D-Dimer (<0.60) mg/L FEU Sodium (137-145) mmol/L Potassium (3.5-5.1) mmol/L Carbon Dioxide (22-30) mmol/L BUN (7-17) mg/dL Creatinine (0.52-1.04) mg/dL Glucose (74-99) mg/dL POC Glucose (mg/dL) (70-110) mg/dL Plasma Lactic Acid Clem (0.7-2.0) mmol/L AST (14-36) U/L ALT (4-34) U/L Alkaline Phosphatase (38-126) U/L Troponin I 5.450 H* (0.000-0.034) ng/mL Total Protein (6.3-8.2) g/dL Albumin (3.5-5.0) g/dL Urine Appearance (Clear) Urine Protein (Negative) Urine Glucose (UA) (Negative) Urine Blood (Negative) Ur Leukocyte Esterase (Negative) Urine RBC (0-5) /hpf Urine WBC (0-5) /hpf Urine WBC Clumps (None) /hpf Ur Squamous Epith Cells (0-4) /hpf Urine Bacteria (None) /hpf Urine Mucus (None) /hpf 11/18/24 11/18/24 11/18/24 Range/Units 06:00 06:00 06:30 WBC 17.54 H (4.50-10.00) 10*3/uL RBC 3.56 L (4.10-5.20) 10*6/uL Hgb 9.5 L (12.0-15.0) g/dL Hct 30.7 L (37.2-46.3) % MCH 26.7 L (27.0-32.0) pg MCHC 30.9 L (32.0-37.0) g/dL Plt Count 501 H (140-440) 10*3/uL Immature Gran # 0.11 H (0.00-0.04) 10*3/uL Neutrophils # 14.92 H (1.80-7.70) 10*3/uL Eosinophils # 0.00 L (0.04-0.35) 10*3/uL APTT (22.0-30.0) sec D-Dimer (<0.60) mg/L FEU Sodium 136 L (137-145) mmol/L Potassium 5.5 H (3.5-5.1) mmol/L Carbon Dioxide 15 L (22-30) mmol/L BUN 83 H (7-17) mg/dL Creatinine 1.38 H (0.52-1.04) mg/dL Glucose 216 H (74-99) mg/dL POC Glucose (mg/dL) 241 H (70-110) mg/dL Plasma Lactic Acid Clem (0.7-2.0) mmol/L AST 148 H (14-36) U/L ALT 216 H (4-34) U/L Alkaline Phosphatase 182 H (38-126) U/L Troponin I (0.000-0.034) ng/mL Total Protein 6.0 L (6.3-8.2) g/dL Albumin 2.8 L (3.5-5.0) g/dL Urine Appearance (Clear) Urine Protein (Negative) Urine Glucose (UA) (Negative) Urine Blood (Negative) Ur Leukocyte Esterase (Negative) Urine RBC (0-5) /hpf Urine WBC (0-5) /hpf Urine WBC Clumps (None) /hpf Ur Squamous Epith Cells (0-4) /hpf Urine Bacteria (None) /hpf Urine Mucus (None) /hpf Microbiology - Last 24 Hours (Table) 11/17/24 13:06 Gram Stain - Preliminary Leg - Left 11/17/24 13:05 Gram Stain - Preliminary Foot - Left 11/17/24 08:30 Blood Culture Gram Stain - Preliminary Blood Blood Culture - Preliminary Molecular ID Assessment and Plan (1) Non healing left heel wound Current Visit: Yes Status: Acute Code(s): S91.302A - UNSPECIFIED OPEN WOUND, LEFT FOOT, INITIAL ENCOUNTER SNOMED Code(s): 769466389 (2) Septic shock Current Visit: Yes Status: Acute Code(s): A41.9 - SEPSIS, UNSPECIFIED ORGANISM; R65.21 - SEVERE SEPSIS WITH SEPTIC SHOCK SNOMED Code(s): 53537787 (3) Urinary tract infection Current Visit: Yes Status: Acute Code(s): N39.0 - URINARY TRACT INFECTION, SITE NOT SPECIFIED SNOMED Code(s): 01208581 (4) Bacteremia Current Visit: Yes Status: Acute Code(s): R78.81 - BACTEREMIA SNOMED Cod e(s): 8390336 Plan: 1patient presented hospital with sepsis in this patient who did have fever tachycardia tachypnea hypotension elevated white count meeting criteria for SIRS source is likely urinary as the patient has significantly positive UA plus minus infected left heel pressure ulcer with a previous history of MRSA infection to the left heel 2-sulfa allergy 3-blood cultures currently growing MRSA left heel culture currently pending 4-patient is currently covered with vancomycin pharmacy to dose and cefepime while waiting for the workup to be completed Dictation was produced using [employer] dictation software. please excuse any grammatical, word or spelling errors.
[2024-11-18] MEDS: ALPRAZolam 0.25 MG TAB PO SCH (12:32)
[2024-11-18 12:52] LABS: Glucose,Whole Blood 235 mg/dL (70-110)
--- NOTE | 2024-11-18 13:02 | CA ---
Transthoracic Echo Report Name: Lilia Boateng Age: 84 Gender: F : 1940 Exam Date: 11/18/2024 09:33 Exam Location: [place] [facility] Ht (in): 62 Wt (lb): 155 Ordering Physician: Lorne Garza MD ([id number]) Attending/Referring Phys: Porcelain Mixer Lizzie Camargo RDCS Procedure CPT: Indications: Assess cardiac status Cardiac Hx: Technical Quality: Fair Contrast 1: Definity Total Dose (mL): 2 Contrast 2: Total Dose (mL): MEASUREMENTS (Male / Female) Normal Values 2D ECHO LV Diastolic Diameter PLAX 6.5 cm 4.2 - 5.9 / 3.9 - 5.3 cm LV Systolic Diameter PLAX 6.0 cm IVS Diastolic Thickness 0.8 cm 0.6 - 1.0 / 0.6 - 0.9 cm LVPW Diastolic Thickness 1.1 cm 0.6 - 1.0 / 0.6 - 0.9 cm LV Relative Wall Thickness 0.3 RV Internal Dim ED PLAX 2.3 cm LA Systolic Diameter LX 4.5 cm 3.0 - 4.0 / 2.7 - 3.8 cm M-MODE Aortic Root Diameter MM 2.9 cm LA Systolic Diameter MM 4.0 cm LA Ao Ratio MM 1.4 AV Cusp Separation MM 1.4 cm FINDINGS Left Ventricle Left ventricular ejection fraction is estimated at 10-15%. Mildly increased posterior wall thickness. Severely increased left ventricular diastolic diameter. Severely reduced global left ventricular systolic function. Right Ventricle Normal right ventricular size. Right Atrium Catheter/pacemaker wire in the right atrial cavity. Moderate right atrial dilatation. Left Atrium Moderately increased left atrial diameter. Mitral Valve Aortic Valve Tricuspid Valve Pulmonic Valve Pericardium No pericardial or pleural effusion. Aorta Normal size aortic root and proximal ascending aorta. CONCLUSIONS Severe LV systolic dysfunction with an ejection fraction of 10 to 15% Previewed by: Dr. Xavier Lundberg MD (Electronically Signed) Final Date: 18 November 2024 13:01
--- NOTE | 2024-11-18 13:26 | P.CON ---
Consult Note - . Consult date: 11/18/24 Assessment/Plan:: wound care consultation: Date of consultation: 11/18/2024 Reason for consultation: Ulcers right leg and heel. History of chief complaint: This 84-year-old woman is a resident of an [facility]. She was brought in because of low blood pressure and progressive shortness of breath and mental changes. We have been asked see the patient in regards to a large right heel ulcer. The patient has multiple comorbidities including CHF, dementia, diabetes Relevant examination: The patient has diminished pedal pulses. She has a 6 x 5 cm ulceration on the posterior left heel with slough. It is difficult to tell whether there is in fact calcaneus involvement. Impression: At least stage III pressure ulcer left heel. Given her comorbidities I would consider the chance for healing this ulcer poor. Recommendation: I would concur with Dr. Oliver's recommendation to start with Santyl on a daily basis. It should be cleansed prior to placing the Santyl on a daily basis. If the wound is cleaned up and granulating 1 would then switch to either an Opticell silver or a collagen silver product. We would be happy to see the patient on a regular basis for surveillance and wound treatment adjustment as needed.
[2024-11-18] MEDS: FUROSEMIDE 10 MG/ML 4 ML VIAL IV STA (13:57)
--- NOTE | 2024-11-18 16:06 | PN ---
PROGRESS NOTE DATE OF SERVICE: 11/18/2024 SUBJECTIVE: This is an 84-year-old woman with a past medical history of multiple medical problems, was admitted with sepsis and hypotension. The patient also complaining of severe neck pain. The patient had multiple evaluations. The blood cultures showing gram-positive cocci and cultures. The patient also had a neck and chest CAT scan also, which showed abnormalities with restrictive changes involving the C3-4 with prominent prevertebral soft tissue thickening and edema and multiple findings also. PAST MEDICAL HISTORY: Reviewed. REVIEW OF SYSTEMS: A 14-point review of systems negative except as mentioned earlier. CURRENT MEDICATIONS: Reviewed. PHYSICAL EXAMINATION: VITAL SIGNS: Pulse is 92, blood pressure 92/60, and respirations 26. HEENT: Conjunctivae normal. NECK: Neck movements are painful. Torticollis present. CHEST: A few scattered rhonchi. CARDIOVASCULAR: S1-S2. ABDOMEN: Soft. NERVOUS SYSTEM: Diffusely weak. LABORATORY DATA: WBC 17.54 and sodium 136. Rest of the labs are noted. ASSESSMENT: 1. Possible sepsis with hypotension, fever of undetermined etiology, possibly acute-on- chronic cellulitis of the left leg. 2. Rule out osteomyelitis and as well as paravertebral abscess on the cervical C3-4. 3. Troponin 0.200, possible acute [id number] elevation myocardial infarction. 4. Possible acute urinary tract infection. 5. Acute renal failure, acute tubular necrosis with hyperkalemia. 6. Neck pain possibly degenerative joint disease/neck abscess. 7. Elevated WBC. 8. Anemia, normocytic. 9. History of coronary artery disease, CABG stent. 10.History of congestive heart failure. 11.History of dementia. 12.Diabetes mellitus type 2. 13.History of pneumonia. 14.Multiple complex medical issues. 15.History of AICD. RECOMMENDATIONS: Recommend to continue current management and continue symptomatic treatment. Repeat labs. Broad-spectrum IV antibiotics. Monitor renal function closely. Also, recommend Orthopedic evaluation. The patient is not a candidate for MRI. Otherwise, prognosis guarded. Currently, the patient is on IV cefepime. We will continue to monitor and we will follow the patient along with multiple consultants. Prognosis guarded. Further recommendations to follow. MMODL / IJN: [id number] /
--- NOTE | 2024-11-18 16:30 | P.CNOR ---
History of Present Illness - [facility] Consult date: 11/18/24 Requesting physician: Damaris Sinha Consult reason: neck pain, other (Abnormal results of CT of the Cervical Spine) History of present illness: History of Presenting Illness Patient is a 84-year-old female who was transported via EMS from [facility] to the ER due to altered mental status and hypotension. There is concerns for sepsis, fluid resuscitation was provided with a total of 3 L of fluid. Patient has been started on a combination of cefepime and vancomycin for broad-spectrum antibiotic coverage. Patient is positive for a severe UTI. Blood cultures are coming back as MRSA. Awaiting wound cultures from a chronic left heel non- healing wound. Our services have been consulted for an abnormal CT of the cervical spine. CT of the neck and chest taken on 11/18/2024 demonstrates abnormal deconstruct of changes involving the C3 and C4 vertebral bodies with prominent prevertebral or soft tissue thickening/edema. Etiologies include infectious process with a destructive malignancy but is not excluded. Patient seen an examined this afternoon. Patient is resting comfortably in bed. Patient's family and RN are present within room. Patient is alert and o riented, although mildly confused. She reports chronic cervical pain with progression over the past year. Patient denies any radiculopathy or numbness/tingling into the bilateral upper extremities. She states she has noticed over the past year that the left side of her neck has become weaker with her chin falling more towards her chest. Review of Systems Pertinent positives and negatives as discussed in HPI, a complete review of systems was performed and all other systems are negative. Physical Examination General: The patient is awake and alert, mildly confused. Skin: Skin is warm and dry with a non-healing left lower extremity and heel wound. Neck: Chin on chest deformity, limited ROM Respiratory: Respirations are non-labored. Back: There is no tenderness to palpation in the midline, paralumbar, parathoracic or buttocks region. Neurological: CN 2-12 intact. There are no obvious motor or sensory deficits. Movement and coordination equal and intact. Sensory exam to light touch intact C5-T1 and intact from L2-S1. Reflexes 2/4 in bilateral upper and lower extremities. Negative Hoffmans, babinski, and clonus signs. Psychiatric: Cooperative, appropriate mood & affect, normal judgment. Assessment Cervical spondylosis with stenosis Cervical pain C3-C4 erosive vertebral body changes, possible osteomylitis with epidural phlegmon Sepsis shock syndrome Chin on chest deformity Generalized weakness Multiple complex cormorbidities Plan At this time we recommend surgical intervention in the form of C2-C6 fusion with C3-C4 corpectomy and removal of infectious phlegmon. Patient has been tentatively scheduled for surgery tomorrow 11/19/24. Reviewing patients vitals, labs, and recent testing, she is not hemodynamically stable for surgery at this time, although performing this procedure may provide stabilization of her septic syndrome due to infectious process of the cervical spine. We will continue to follow patient during hospital stay and monitor for any improvements that may allow for us to proceed with surgical intervention. 2. Appreciate medical management 3. Continue with IV antibiotics and further recommendations from Infectious disease. 4. Pain management - continue with current regimen, Utilize ice therapy 20min every hour as needed. Soft cervical collar will be ordered to provide support of the cervical spine to relieve some of the muscle tensioning. Patient may wear as needed for comfort. 5. Appreciate consult. I reviewed and discussed this case with my attending Dr. Quiñonez, whom has reviewed this chart and films and is in agreement with assessment and plan of care as outlined above. I have personally seen and examined the patient, performed the documentation and the assessment and plan as written. Number of minutes spent on the visit: 30m. Past Medical History Past Medical History: Coronary Artery Disease (CAD), Heart Failure, Dementia, Diabetes Mellitus, Hypertension, Myocardial Infarction (DC), Pneumonia, Vascular Disorder Additional Past Medical History / Comment(s): Pt recently admitted to [facility] on 03/14/21 with CHF/L pleural effusion. Other hx: Chronic L calf wound/WCC, NIDM type II, neuropathy L foot/leg, cardiomyopathy/sees Dr Knight in [place], MIs, mild cognitive impairment, incontinence, iron anemia, hypmagnesemia Last Myocardial Infarction Date:: unsure History of Any Multi-Drug Resistant Organisms: MRSA Year Discovered:: 08/06/24 MDRO Source:: blood; Left Foot & Leg Past Surgical History: AICD, Bladder Surgery, Coronary Bypass/CABG, Heart Catheterization, Heart Catheterization With Stent, Hysterectomy, Joint Replacement, Pacemaker Additional Past Surgical History / Comment(s): 10/2020 AICD/pacer, PCI stents, 2010 CABG 3 vessel, L leg wound I&D, bkadder suspension, ovarian cyst removal, D&C, rectocele, colonoscopy, total r knee arthroplasty. Past Anesthesia/Blood Transfusion Reactions: No Reported Reaction Date of Last Stent Placement:: unknown Type of Cardiac Device: AICD Device Placement Date:: 2020 Past Psychological History: No Psychological Hx Reported Smoking Status: Never smoker Past Alcohol Use History: None Reported Past Drug Use History: None Reported - Past Family History Father Family Medical History: No Reported History Additional Family Medical History / Comment(s): Father had heart problems. He chewed tobacco, smoked and drank quit a bit of alcohol. Mother Family Medical History: Diabetes Mellitus Medications and Allergies Home Medications Medication Instructions Recorded Confirmed Type Aspirin EC [Ecotrin Low Dose] 81 mg PO DAILY@0800 03/14/21 11/17/24 History Donepezil [Aricept] 10 mg PO HS@2100 03/14/21 11/17/24 History Isosorbide Mononitrate ER [Imdur] 30 mg PO DAILY@0800 03/14/21 11/17/24 History Magnesium Oxide 400 mg PO DAILY@0800 03/14/21 11/17/24 History Benzocaine/Menthol [Dermoplast 1 spray TOPICAL BID PRN 04/16/21 11/17/24 History Pain Relieving Opelika] Acetaminophen Tab [Tylenol] 650 mg PO Q6HR PRN tab 04/28/21 11/17/24 Rx Famotidine [Pepcid] 20 mg PO DAILY@0800 05/07/21 11/17/24 History INSULIN ASPART (NovoLOG) [NovoLOG 3 unit SQ BID@1100,1700 05/07/21 11/17/24 History (formulary)] L.acidoph,Paracasei, B.lactis 1 cap PO DAILY@0800 05/07/21 11/17/24 History [Probiotic] Melatonin 3 mg PO DAILY PRN 05/07/21 11/17/24 History Ondansetron [Zofran] 4 mg PO TID PRN 05/07/21 11/17/24 History Spironolactone [Aldactone] 12.5 mg PO DAILY@0800 05/07/21 11/17/24 History bisacodyL [Dulcolax] 10 mg RECTAL DAILY PRN 05/07/21 11/17/24 History HYDROcodone/APAP 5-325MG [[place]ien[place] 1 tab PO BID@0800,1700 06/03/21 11/17/24 History 5-325] Atorvastatin [Lipitor] 40 mg PO HS@2100 10/23/21 11/17/24 History Empagliflozin [Jardiance] 10 mg PO DAILY@0800 10/23/21 11/17/24 History Furosemide [Lasix] 40 mg PO DAILY@0800 10/23/21 11/17/24 History Emmanuel Packet 1 packet PO BID@0800,1700 10/23/21 11/17/24 History Sacubitril/Valsartan [Entresto 24 1 tab PO BID@0800,1700 10/23/21 11/17/24 History mg-26 mg Tablet] carvediloL [Coreg] 6.25 mg PO BID@0800,1700 10/23/21 11/17/24 History Cholecalciferol (Vitamin D3) 100 mcg PO DAILY@0800 08/03/24 11/17/24 History [Vitamin D3 (50 Mcg = 2000 Iu)] Eucerin Advanced Repair Cream 1 applic TOPICAL DAILY 08/03/24 11/17/24 History Folic Acid 0.4 mg PO DAILY@0800 08/03/24 11/17/24 History INSULIN ASPART (NovoLOG) [NovoLOG See Protocol SQ ACHS 08/03/24 11/17/24 History (formulary)] Insulin Degludec [Tresiba 20 units SQ HS@2130 08/03/24 11/17/24 History Flextouch U-100 Pen] Lactulose 10 gm PO BID@0800,1700 08/03/24 11/17/24 History Lidocaine 5% Cream 1 applic TOPICAL WE PRN 08/03/24 11/17/24 History Liquacel 30 ml PO DAILY@0800 08/03/24 11/17/24 History Loperamide [Imodium] 2 mg PO Q6H PRN 08/03/24 11/17/24 History Magnesium Hydroxide [Milk of 7,200 mg PO Q2D PRN 08/03/24 11/17/24 History Magnesia Concentrate] Multivitamins, Thera [Multivitamin 1 tab PO DAILY@1700 08/03/24 11/17/24 History (formulary)] Mylanta Double Strength 10 ml PO Q4H PRN 08/03/24 11/17/24 History [id number]/5ml Patiromer Calcium Sorbitex 8.4 gm PO TH@1200 08/03/24 11/17/24 History [Veltassa] Semaglutide [Ozempic] 0.25 mg SQ WE@2130 08/03/24 11/17/24 History allopurinoL [Zyloprim] 100 mg PO DAILY@0800 08/03/24 11/17/24 History Albuterol Nebulized [Ventolin 2.5 mg INHALATION RT-TID PRN ml 08/13/24 11/17/24 Rx Nebulized] Ipratropium-Albuterol Nebulize 3 ml INHALATION RT-Q4H PRN each 08/13/24 11/17/24 Rx [Duoneb 0.5 mg-3 mg/3 ml Soln] ALPRAZolam [Xanax] 0.25 mg PO DAILY@1700 11/17/24 11/17/24 History Ascorbic Acid [Vitamin C] 250 mg PO DAILY@0811/17/24 11/17/24 History Collagenase [Santyl Ointment] 1 applic TOPICAL DAILY 11/17/24 11/17/24 History HYDROcodone/APAP 5-325MG [Bienville 1 tab PO Q24H PRN 11/17/24 11/17/24 History 5-325] Hydrophilic Cream [Triad (Kerodex 1 applic TOPICAL TID 11/17/24 11/17/24 History geq)] Lidocaine 5% Cream 1 applic TOPICAL DAILY PRN 11/17/24 11/17/24 History Vashe Wound Cleanser 1 applic TOPICAL DAILY PRN 11/17/24 11/17/24 History Vashe Wound Cleanser 1 applic TOPICAL MOWEFR 11/17/24 11/17/24 History Allergies Allergy/AdvReac Type Severity Reaction Status Date / Time Sulfa (Sulfonamide Allergy Anaphylaxis Verified 11/17/24 12:17 Antibiotics) Results - Labs Labs: Abnormal Lab Results - Last 24 Hours (Table) 11/17/24 11/17/24 11/17/24 Range/Units 08:20 15:29 16:37 WBC (4.50-10.00) 10*3/uL RBC (4.10-5.20) 10*6/uL Hgb (12.0-15.0) g/dL Hct (37.2-46.3) % MCH (27.0-32.0) pg MCHC (32.0-37.0) g/dL Plt Count (140-440) 10*3/uL Immature Gran # (0.00-0.04) 10*3/uL Neutrophils # (1.80-7.70) 10*3/uL Eosinophils # (0.04-0.35) 10*3/uL APTT (22.0-30.0) sec D-Dimer 2.07 H (<0.60) mg/L FEU Sodium (137-145) mmol/L Potassium (3.5-5.1) mmol/L Carbon Dioxide (22-30) mmol/L BUN (7-17) mg/dL Creatinine (0.52-1.04) mg/dL Glucose (74-99) mg/dL POC Glucose (mg/dL) (70-110) mg/dL Plasma Lactic Acid Clem 4.5 H* (0.7-2.0) mmol/L AST (14-36) U/L ALT (4-34) U/L Alkaline Phosphatase (38-126) U/L Troponin I 4.280 H* (0.000-0.034) ng/mL Total Protein (6.3-8.2) g/dL Albumin (3.5-5.0) g/dL 11/17/24 11/17/24 11/17/24 Range/Units 17:44 20:25 20:25 WBC (4.50-10.00) 10*3/uL RBC (4.10-5.20) 10*6/uL Hgb (12.0-15.0) g/dL Hct (37.2-46.3) % MCH (27.0-32.0) pg MCHC (32.0-37.0) g/dL Plt Count (140-440) 10*3/uL Immature Gran # (0.00-0.04) 10*3/uL Neutrophils # (1.80-7.70) 10*3/uL Eosinophils # (0.04-0.35) 10*3/uL APTT 45.6 H (22.0-30.0) sec D-Dimer (<0.60) mg/L FEU Sodium (137-145) mmol/L Potassium (3.5-5.1) mmol/L Carbon Dioxide (22-30) mmol/L BUN (7-17) mg/dL Creatinine (0.52-1.04) mg/dL Glucose (74-99) mg/dL POC Glucose (mg/dL) 256 H (70-110) mg/dL Plasma Lactic Acid Clem (0.7-2.0) mmol/L AST (14-36) U/L ALT (4-34) U/L Alkaline Phosphatase (38-126) U/L Troponin I 5.450 H* (0.000-0.034) ng/mL Total Protein (6.3-8.2) g/dL Albumin (3.5-5.0) g/dL 11/18/24 11/18/24 11/18/24 Range/Units 05:40 06:00 06:00 WBC 17.54 H (4.50-10.00) 10*3/uL RBC 3.56 L (4.10-5.20) 10*6/uL Hgb 9.5 L (12.0-15.0) g/dL Hct 30.7 L (37.2-46.3) % MCH 26.7 L (27.0-32.0) pg MCHC 30.9 L (32.0-37.0) g/dL Plt Count 501 H (140-440) 10*3/uL Immature Gran # 0.11 H (0.00-0.04) 10*3/uL Neutrophils # 14.92 H (1.80-7.70) 10*3/uL Eosinophils # 0.00 L (0.04-0.35) 10*3/uL APTT 33.8 H (22.0-30.0) sec D-Dimer (<0.60) mg/L FEU Sodium 136 L (137-145) mmol/L Potassium 5.5 H (3.5-5.1) mmol/L Carbon Dioxide 15 L (22-30) mmol/L BUN 83 H (7-17) mg/dL Creatinine 1.38 H (0.52-1.04) mg/dL Glucose 216 H (74-99) mg/dL POC Glucose (mg/dL) (70-110) mg/dL Plasma Lactic Acid Clem (0.7-2.0) mmol/L AST 148 H (14-36) U/L ALT 216 H (4-34) U/L Alkaline Phosphatase 182 H (38-126) U/L Troponin I (0.000-0.034) ng/mL Total Protein 6.0 L (6.3-8.2) g/dL Albumin 2.8 L (3.5-5.0) g/dL 11/18/24 11/18/24 Range/Units 06:30 12:51 WBC (4.50-10.00) 10*3/uL RBC (4.10-5.20) 10*6/uL Hgb (12.0-15.0) g/dL Hct (37.2-46.3) % MCH (27.0-32.0) pg MCHC (32.0-37.0) g/dL Plt Count (140-440) 10*3/uL Immature Gran # (0.00-0.04) 10*3/uL Neutrophils # (1.80-7.70) 10*3/uL Eosinophils # (0.04-0.35) 10*3/uL APTT (22.0-30.0) sec D-Dimer (<0.60) mg/L FEU Sodium (137-145) mmol/L Potassium (3.5-5.1) mmol/L Carbon Dioxide (22-30) mmol/L BUN (7-17) mg/dL Creatinine (0.52-1.04) mg/dL Glucose (74-99) mg/dL POC Glucose (mg/dL) 241 H 235 H (70-110) mg/dL Plasma Lactic Acid Clem (0.7-2.0) mmol/L AST (14-36) U/L ALT (4-34) U/L Alkaline Phosphatase (38-126) U/L Troponin I (0.000-0.034) ng/mL Total Protein (6.3-8.2) g/dL Albumin (3.5-5.0) g/dL Microbiology - Last 24 Hours (Table) 11/17/24 13:06 Gram Stain - Preliminary Leg - Left 11/17/24 13:05 Gram Stain - Preliminary Foot - Left 11/17/24 08:30 Blood Culture Gram Stain - Preliminary Blood Blood Culture - Preliminary Molecular ID H & H 11/17/24 11/18/24 Range/Units 08:30 06:00 Hgb 9.3 L 9.5 L (12.0-15.0) g/dL Hct 29.0 L 30.7 L (37.2-46.3) % Coagulation 11/17/24 Range/Units 08:30 INR 1.1 (<1.2) Result Diagrams: 11/18/24 06:00 11/18/24 06:00
[2024-11-18] MEDS: HYDROcodone/APAP 5-325MG 1 EACH TAB PO SCH (17:26)
[2024-11-18] MEDS: FUROSEMIDE 100 MG in SODIUM CHLORIDE 0.9% 90 ML IV SCH (17:31)
[2024-11-18] MEDS: DOBUTamine DRIP 500 MG in DEXTROSE/WATER 1 250ML.BAG IV SCH (17:32)
[2024-11-18 17:57] LABS: Glucose,Whole Blood 253 mg/dL (70-110)
[2024-11-18 21:07] LABS: Glucose,Whole Blood 296 mg/dL (70-110)
[2024-11-19 06:06] LABS: Basophils # (A) 0.05 10*3/uL (0.00-0.10); Basophils % (A) 0.3 %; Eosinophils # (A) 0.07 10*3/uL (0.04-0.35); Eosinophils % (A) 0.5 %; HCT 30.1 % (37.2-46.3); HGB 9.1 g/dL (12.0-15.0); Lymphocytes # (A) 1.09 10*3/uL (0.90-5.00); Lymphocytes % (A) 7.6 %; MCH 26.5 pg (27.0-32.0); MCHC 30.2 g/dL (32.0-37.0); MCV 87.8 fL (80.0-97.0); Monocytes # (A) 0.66 10*3/uL (0.20-1.00); Monocytes % (A) 4.6 %; Neutrophils # (A) 12.33 10*3/uL (1.80-7.70); Neutrophils % (A) 86.2 %; Platelet Count 430 10*3/uL (140-440); RBC 3.43 10*6/uL (4.10-5.20); RDW 15.7 % (11.5-14.5); WBC 14.31 10*3/uL (4.50-10.00)
[2024-11-19 06:36] LABS: Glucose,Whole Blood 217 mg/dL (70-110)
[2024-11-19 06:42] LABS: African American GFR (CKD) 28 (>60 ml/min/1.73 sqM); Anion Gap 14 mmol/L; Blood Urea Nitrogen 95 mg/dL (7-17); Calcium 9.2 mg/dL (8.4-10.2); Carbon Dioxide 14 mmol/L (22-30); Chloride 103 mmol/L (98-107); Glucose 199 mg/dL (74-99); Non-African American GFR(CKD) 25 (>60 ml/min/1.73 sqM); Potassium 5.2 mmol/L (3.5-5.1); Sodium 131 mmol/L (137-145)
[2024-11-19 06:48] LABS: Vancomycin,Random 16.3 ug/mL
--- NOTE | 2024-11-19 07:15 | P.PN ---
Subjective Progress Note Date: 11/19/24 The patient is an 85-year-old female patient who is known to our service from before with a past medical history significant for CAD status post CABG as well as ischemic cardiomyopathy status post AICD and also hypertension and dyslipidemia and diabetes and multiple comorbid conditions including chronic a nemia. The patient is a resident at [facility]. She is somewhat poor historian. The patient was brought from the [facility] to the hospital because of low blood pressure associated with increasing in the shortness of breath and change in mental status. She was found to be hypoxic in the ER and she was admitted to the ICU and placed on oxygen. Also she was found to be hypotensive requiring norepinephrine to support her pressure. Also further evaluation was performed including troponin came to be abnormal. There is a concern about pulmonary embolism given the abnormal D-dimer and currently the patient is in process of having a CT scan of the chest. The EKG showed sinus with paced rhythm and also the patient is tachycardic and she is in mild hypoxic respiratory failure and mild respiratory distress. Hemodynamically she still unstable requiring small dose of norepinephrine. No symptoms of chest pain or chest discomfort beside the shortness of breath. The physical examination is remarkable for mild respiratory distress with regular rate and rhythm and distant heart sounds and soft systolic murmur and diminished breathing sounds bilaterally and mild bilateral lower extremities edema noted with the chest x-ray showed evidence of pulmonary vascular congestions. No NT proBNP was ordered. The troponin is definitely elevated and currently she is on heparin. November 19, 2024 The patient was seen and evaluated this morning. She underwent an echo yesterda y and that revealed severe cardiomyopathy with EF at 15%. She underwent a CT scan of the neck which showed osteomyelitis and she was seen by the surgical team with possible taking the patient to the OR. The patient is at very high risk at this stage given the severe cardiomyopathy and giving the ACS with elevated troponin on admission and giving the hypotension requiring norepinephrine and given the decompensated heart failure and currently she is on Lasix IV as well as dobutamine IV. Beside that the CT scan of the chest did not show any evidence of pulmonary embolism. The physical examination is remarkable for regular rhythm with heart rate in the 90s and systolic murmur at the right upper sternal border with diminished breathing sounds bilaterally and mild bilateral lower extremities edema. Assessment Change in mental status which has improved Low blood pressure requiring norepinephrine Mild respiratory distress Abnormal D-dimer with no evidence of PE Abnormal troponin CAD status post CABG Ischemic cardiomyopathy Status post AICD Anuria Multiple comorbid conditions Plan Continue heparin for a total of 48 hours Add aspirin to the current medical regimen Consider adding small dose of beta-maryam and the rest of the cardiomyopathy medications once the pressure permitting Try to wean the patient from norepinephrine The patient is at high risk for any surgical intervention at this point Objective - Vital Signs Vital signs: Vital Signs Temp 98.1 F 11/19/24 04:00 Pulse 104 H 11/19/24 07:00 Resp 25 H 11/19/24 07:00 BP 114/56 11/19/24 07:00 Pulse Ox 98 11/19/24 07:00 FiO2 Intake & Output 11/18/24 11/19/24 11/19/24 18:59 06:59 18:59 Intake Total 5476.240 2797.722 50 Output Total 90 630 200 Balance 1573.136 711.722 -150 Weight 72.2 kg Intake: IV 625.28 825.28 50 DOBUTamine DRIP 500 mg In 5.28 5.28 Dextrose/Water 1 250ml. bag @ 2.5 MCG/KG/MIN 5.28 mls/hr IV .Q24H [facility] Rx#: [id number] Furosemide 100 mg In 20 220 Sodium Chloride 0.9% 90 ml @ 20 MG/HR 20 mls/hr IV .Q5H [facility] Rx#:[id number] Sodium Chloride 0.9% 1, 600 600 50 000 ml @ 50 mls/hr IV . Q20H [facility] Rx#:[id number] Intake, IV Titration 317.856 516.442 Amount Furosemide 100 mg In 247.667 Sodium Chloride 0.9% 90 ml @ 20 MG/HR 20 mls/hr IV .Q5H [facility] Rx#:[id number] Heparin Sod,Pork in 0.45% 231.902 111.125 NaCl 25,000 unit In 0.45 % NaCl 1 250ml.bag @ 12 UNITS/KG/HR 7.62 mls/hr IV .Q24H [facility] Rx#: [id number] Norepinephrine 8 mg In 85.954 157.650 Sodium Chloride 0.9% 250 ml @ 0.03 MCG/KG/MIN 3. 686 mls/hr IV .Q24H [facility] Rx#:[id number] Oral 480 Blood Product 240 Output: Urine 90 630 200 Other: Voiding Method Indwelling Catheter Indwelling Catheter - Labs CBC & Chem 7: 11/19/24 05:36 11/19/24 05:36 Labs: Abnormal Lab Results - Last 24 Hours (Table) 11/18/24 11/18/24 11/18/24 Range/Units 12:51 14:43 17:56 WBC (4.50-10.00) 10*3/uL RBC (4.10-5.20) 10*6/uL Hgb (12.0-15.0) g/dL Hct (37.2-46.3) % MCH (27.0-32.0) pg MCHC (32.0-37.0) g/dL Immature Gran # (0.00-0.04) 10*3/uL Neutrophils # (1.80-7.70) 10*3/uL APTT 47.0 H (22.0-30.0) sec Sodium (137-145) mmol/L Potassium (3.5-5.1) mmol/L Carbon Dioxide (22-30) mmol/L BUN (7-17) mg/dL Creatinine (0.52-1.04) mg/dL Glucose (74-99) mg/dL POC Glucose (mg/dL) 235 H 253 H (70-110) mg/dL 11/18/24 11/19/24 11/19/24 Range/Units 21:05 05:36 05:36 WBC 14.31 H (4.50-10.00) 10*3/uL RBC 3.43 L (4.10-5.20) 10*6/uL Hgb 9.1 L (12.0-15.0) g/dL Hct 30.1 L (37.2-46.3) % MCH 26.5 L (27.0-32.0) pg MCHC 30.2 L (32.0-37.0) g/dL Immature Gran # 0.11 H (0.00-0.04) 10*3/uL Neutrophils # 12.33 H (1.80-7.70) 10*3/uL APTT (22.0-30.0) sec Sodium 131 L (137-145) mmol/L Potassium 5.2 H (3.5-5.1) mmol/L Carbon Dioxide 14 L (22-30) mmol/L BUN 95 H (7-17) mg/dL Creatinine 1.88 H (0.52-1.04) mg/dL Glucose 199 H (74-99) mg/dL POC Glucose (mg/dL) 296 H (70-110) mg/dL 11/19/24 11/19/24 Range/Units 05:36 06:35 WBC (4.50-10.00) 10*3/uL RBC (4.10-5.20) 10*6/uL Hgb (12.0-15.0) g/dL Hct (37.2-46.3) % MCH (27.0-32.0) pg MCHC (32.0-37.0) g/dL Immature Gran # (0.00-0.04) 10*3/uL Neutrophils # (1.80-7.70) 10*3/uL APTT 39.2 H (22.0-30.0) sec Sodium (137-145) mmol/L Potassium (3.5-5.1) mmol/L Carbon Dioxide (22-30) mmol/L BUN (7-17) mg/dL Creatinine (0.52-1.04) mg/dL Glucose (74-99) mg/dL POC Glucose (mg/dL) 217 H (70-110) mg/dL Microbiology - Last 24 Hours (Table) 11/17/24 13:06 Gram Stain - Preliminary Leg - Left Wound Culture - Preliminary Presumptive MRSA Proteus mirabilis 11/17/24 13:05 Gram Stain - Preliminary Foot - Left Wound Culture - Preliminary Proteus mirabilis Pseudomonas aeruginosa 11/17/24 14:06 Urine Culture - Final Urine,Voided 11/17/24 08:30 Blood Culture Gram Stain - Preliminary Blood Blood Culture - Preliminary Molecular ID
--- NOTE | 2024-11-19 08:15 | XR ---
EXAMINATION TYPE: XR chest 1V DATE OF EXAM: 11/19/2024 8:04 AM COMPARISON: Chest radiographs from 11/17/2024, CT neck chest 11/18/2024 TECHNIQUE: XR chest 1V Portable AP radiograph of the chest. CLINICAL INDICATION:Female, 84 years old with history of chf; FINDINGS: Lungs/Pleura: Trace right pleural effusion with right basilar patchy consolidative opacities. No pneu mothorax. Pulmonary vascularity: Subtle pulmonary vascular congestion suggested. Heart/mediastinum: Cardiomediastinal silhouette is enlarged and stable. Atherosclerotic calcificatio ns are seen in the aorta. Three lead cardiac conduction device overlying the left hemithorax with raegan d tips projecting over the right ventricle, right atrium and coronary sinus. Musculoskeletal: No acute osseous pathology. Midline sternotomy wires are noted and stable. IMPRESSION: Cardiomegaly with trace right pleural effusion and right basilar consolidative opacity. Subtle sugges grecia pulmonary vascular congestion. Correlate for CHF exacerbation. [facility], , 11/19/2024 8:12 AM
[2024-11-19] MEDS: ASPIRIN 81 MG PO SCH (10:06)
[2024-11-19 11:11] LABS: Glucose,Whole Blood 224 mg/dL (70-110)
[2024-11-19] MEDS: VANCOMYCIN 1,250 MG in SODIUM CHLORIDE 0.9% 250 ML IVPB ONE (12:05)
--- NOTE | 2024-11-19 14:16 | P.PN ---
Subjective Progress Note Date: 11/19/24 Principal diagnosis: Acute febrile illness with sepsis and septic shock, Patient is 84-year-old female sent in by EMS from her snf, [facility], yesterday after being noted to be confused, lethargic, with low blood pressures. She was tachycardic with a temperature of 100.8 F. Concerns for sepsis. On arrival, she was hypotensive, fluid resuscitated with a total of 3 L crystalloid fluid. Norepinephrine was started as the blood pressure did not respond to fluid alone. Started on a combination of cefepime and vancomycin for broad- spectrum antibiotic coverage. Serial troponins were elevated, and patient was also diagnosed with acute non-ST elevation HI and started on IV heparin per protocol. 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 Of note, had a recent hospitalization back in July, for sepsis and CHF exacerbation. MRSA was isolated in her blood. SILVIANO done on 08/10/2024 did not show any vegetation. There was a severely reduced left ventricular ejection fraction of 30 to 35%, moderate mitral and tricuspid regurgitation with severe pulmonary hypertension. Mild to moderate aortic regurgitation. Treated with IV antibiotics. She also has history of ischemic cardiomyopathy, biventricular AICD, previous CABG, hypertension, hyperlipidemia, diabetes mellitus type 2, dementia, among other debilitating comorbidities. Workup in the emergency department including chest x-ray showing stable pulmonary vascular congestion with scattered infiltrates and small effusions suggestive of congestive heart failure. X-ray left foot with soft tissue wound over the heel without evidence of osseous erosion. Urinalysis was positive for pyuria and bacteria. CBC with a WBC count of 13.4, hemoglobin 9.3, platelets 439. CMP: Sodium 132, potassium 5.7, chloride 98, serum bicarb 21, BUN 76, creatinine 1.35, glucose 219. LFTs mildly elevated. Troponins elevated at 1.11, 2.2, 4.3, and 5.5 respectively. EKG showing a ventricularly paced rhythm. IV heparin continues per protocol. VBG with a pCO2 of 39 and pH of 7.38. Viral 4 Plex negative for influenza A/B, RSV, COVID of note, on her p revious hospitalization in July was positive for RSV. Currently, patient is being observed in the intensive care unit. She is currently awake and alert. She is oriented to self and place. Does not recall events prior to coming to the hospital. I am told this could be her baseline. She does have dementia and takes Aricept at the snf. Denies any chest pain. IV heparin continues per protocol. Blood pressure is being supported with norepinephrine which is infusing at 0.04 mcg/kg/min. Previously febrile with a Tmax of 101.9 F, and this is down and currently normothermic. Urinary catheter was placed which is draining clear urine. Normal saline to be started at 50 mL/h. pancultures are pending. Patient previously complaining of neck pain, however, denies this to me. She has a CT of the neck and chest ordered. No respiratory distress or stridor. On room air. Patient was seen today on 11/19/2024, remains in the ICU, patient is still requiring norepinephrine at 0.13 mcg/kg/min, she received significant amount of fluid boluses, patient is known to have history of severe LV dysfunction and history of congestive heart failure, hence we cut back on her fluids, patient was not making significant urine output yesterday in spite of all the fluids given and in spite of Lasix IV push, hence I recommended patient going on dobutamine at 2.5 mcg/kg/min, I recommended a Lasix drip at 20 mg/h. Patient did quite well with the infusion of Lasix and dobutamine. Her urine output has been excellent while on Lasix, she is on 2 L nasal cannula, does not seem to be uncomfortable. For her non-ST elevation myocardial infarction, patient remains on heparin, she had abnormal troponins, patient is again noted to have history of severe ischemic cardiomyopathy and previous AICD placement. Considering the overall picture, at this point the patient is an absolute contraindication to any cervical surgery. WBC count is 14.3 hemoglobin 9.1 electrolytes are normal renal profile is normal BUN is 95 creatinine 1.88 bicarb is 14. Patient will be placed on oral bicarb for now. Objective - Vital Signs Vital signs: Vital Signs Temp 98.1 F 11/19/24 04:00 Pulse 97 11/19/24 13:15 Resp 27 H 11/19/24 13:15 BP 104/80 11/19/24 13:15 Pulse Ox 98 11/19/24 13:15 FiO2 Intake & Output 11/18/24 11/19/24 11/19/24 18:59 06:59 18:59 Intake Total 9361.013 4167.722 655.918 Output Total 90 630 1035 Balance 1573.136 711.722 -379.082 Weight 72.2 kg Intake: IV 625.28 825.28 140 DOBUTamine DRIP 500 mg In 5.28 5.28 Dextrose/Water 1 250ml. bag @ 5 MCG/KG/MIN 10.56 mls/hr IV .[id number] [facility] Rx #:[id number] Furosemide 100 mg In 20 220 Sodium Chloride 0.9% 90 ml @ 20 MG/HR 20 mls/hr IV .Q5H [facility] Rx#:[id number] Sodium Chloride 0.9% 1, 600 600 140 000 ml @ 10 mls/hr IV . Q24H [facility] Rx#:[id number] Intake, IV Titration 317.856 516.442 515.918 Amount DOBUTamine DRIP 500 mg In 81.664 Dextrose/Water 1 250ml. bag @ 5 MCG/KG/MIN 10.56 mls/hr IV .[id number] [facility] Rx #:[id number] Furosemide 100 mg In 247.667 100 Sodium Chloride 0.9% 90 ml @ 20 MG/HR 20 mls/hr IV .Q5H [facility] Rx#:[id number] Heparin Sod,Pork in 0.45% 231.902 111.125 NaCl 25,000 unit In 0.45 % NaCl 1 250ml.bag @ 12 UNITS/KG/HR 7.62 mls/hr IV .Q24H [facility] Rx#: [id number] Norepinephrine 8 mg In 85.954 157.650 84.254 Sodium Chloride 0.9% 250 ml @ 0.03 MCG/KG/MIN 3. 686 mls/hr IV .Q24H [facility] Rx#:[id number] Vancomycin 1,250 mg In 250 Sodium Chloride 0.9% 250 ml @ 125 mls/hr IVPB ONCE ONE Rx#:[id number] Oral 480 Blood Product 240 Output: Urine 90 630 1035 Other: Voiding Method Indwelling Catheter Indwelling Catheter Indwelling Catheter - Exam GENERAL EXAM: Revealed 84-year-old female in no distress on 2 L nasal cannula HEAD: Normocephalic and atraumatic EYES: Normal reaction of pupils, equal size. NOSE: Clear with pink turbinates. THROAT: No erythema or exudates. NECK: No masses, no JVD. CHEST: No chest wall deformity. Left chest implanted AICD/pacemaker generator. Remote appearing sternotomy incision. LUNGS: Crackles in the bases no rhonchi no wheezes CVS: S1 and S2 normal with no audible murmur, regular rhythm. No extra heart sounds ABDOMEN: No hepatosplenomegaly, active bowel sounds, no guarding or rigidity. SKIN: No rashes CENTRAL NERVOUS SYSTEM: No focal deficits, tone is normal in all 4 extremities. EXTREMITIES: There is mild nonpitting lower extremity edema bilaterally. Left heel wound dressed with new dressing. No clubbing or cyanosis. Peripheral pu lses are intact. - Labs CBC & Chem 7: 11/19/24 05:36 11/19/24 05:36 Labs: Abnormal Lab Results - Last 24 Hours (Table) 11/18/24 11/18/24 11/18/24 Range/Units 14:43 17:56 21:05 WBC (4.50-10.00) 10*3/uL RBC (4.10-5.20) 10*6/uL Hgb (12.0-15.0) g/dL Hct (37.2-46.3) % MCH (27.0-32.0) pg MCHC (32.0-37.0) g/dL Immature Gran # (0.00-0.04) 10*3/uL Neutrophils # (1.80-7.70) 10*3/uL APTT 47.0 H (22.0-30.0) sec Sodium (137-145) mmol/L Potassium (3.5-5.1) mmol/L Carbon Dioxide (22-30) mmol/L BUN (7-17) mg/dL Creatinine (0.52-1.04) mg/dL Glucose (74-99) mg/dL POC Glucose (mg/dL) 253 H 296 H (70-110) mg/dL Hemoglobin A1c (<=6.0) % 11/19/24 11/19/24 11/19/24 Range/Units 05:36 05:36 05:36 WBC 14.31 H (4.50-10.00) 10*3/uL RBC 3.43 L (4.10-5.20) 10*6/uL Hgb 9.1 L (12.0-15.0) g/dL Hct 30.1 L (37.2-46.3) % MCH 26.5 L (27.0-32.0) pg MCHC 30.2 L (32.0-37.0) g/dL Immature Gran # 0.11 H (0.00-0.04) 10*3/uL Neutrophils # 12.33 H (1.80-7.70) 10*3/uL APTT (22.0-30.0) sec Sodium 131 L (137-145) mmol/L Potassium 5.2 H (3.5-5.1) mmol/L Carbon Dioxide 14 L (22-30) mmol/L BUN 95 H (7-17) mg/dL Creatinine 1.88 H (0.52-1.04) mg/dL Glucose 199 H (74-99) mg/dL POC Glucose (mg/dL) (70-110) mg/dL Hemoglobin A1c 8.2 H (<=6.0) % 11/19/24 11/19/24 11/19/24 Range/Units 05:36 06:35 11:09 WBC (4.50-10.00) 10*3/uL RBC (4.10-5.20) 10*6/uL Hgb (12.0-15.0) g/dL Hct (37.2-46.3) % MCH (27.0-32.0) pg MCHC (32.0-37.0) g/dL Immature Gran # (0.00-0.04) 10*3/uL Neutrophils # (1.80-7.70) 10*3/uL APTT 39.2 H (22.0-30.0) sec Sodium (137-145) mmol/L Potassium (3.5-5.1) mmol/L Carbon Dioxide (22-30) mmol/L BUN (7-17) mg/dL Creatinine (0.52-1.04) mg/dL Glucose (74-99) mg/dL POC Glucose (mg/dL) 217 H 224 H (70-110) mg/dL Hemoglobin A1c (<=6.0) % 11/19/24 Range/Units 12:20 WBC (4.50-10.00) 10*3/uL RBC (4.10-5.20) 10*6/uL Hgb (12.0-15.0) g/dL Hct (37.2-46.3) % MCH (27.0-32.0) pg MCHC (32.0-37.0) g/dL Immature Gran # (0.00-0.04) 10*3/uL Neutrophils # (1.80-7.70) 10*3/uL APTT 62.3 H (22.0-30.0) sec Sodium (137-145) mmol/L Potassium (3.5-5.1) mmol/L Carbon Dioxide (22-30) mmol/L BUN (7-17) mg/dL Creatinine (0.52-1.04) mg/dL Glucose (74-99) mg/dL POC Glucose (mg/dL) (70-110) mg/dL Hemoglobin A1c (<=6.0) % Microbiology - Last 24 Hours (Table) 11/17/24 08:30 Blood Culture Gram Stain - Preliminary Blood Blood Culture - Preliminary Presumptive MRSA Molecular ID 11/17/24 13:06 Gram Stain - Preliminary Leg - Left Wound Culture - Preliminary Presumptive MRSA Proteus mirabilis 11/17/24 13:05 Gram Stain - Preliminary Foot - Left Wound Culture - Preliminary Proteus mirabilis Pseudomonas aeruginosa 11/17/24 14:06 Urine Culture - Final Urine,Voided Assessment and Plan Assessment: Impression: Sepsis, septic shock, refractory to fluid resuscitation, currently requiring low-dose norepinephrine Acute febrile illness Possible UTI 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, Pseudomonas aeruginosa, Proteus MirabellisHistory of MRSA bacteremia, SILVIANO done on 08/10/2024 did not show any vegetation. There was a severely reduced left ventricular ejection fraction of 30 to 35%, moderate mitral and tricuspid regurgitation with severe pulmonary hypertension. Mild to moderate aortic regurgitation. Treated with IV vancomycin Acute non-ST elevation HI, currently on IV heparin per protocol Ischemic cardiomyopathy, patient seems to be improving with dobutamine at 2.5 mg/kg/min however considering her blood pressure remains relatively low I am recommending increasing the dose to 5 mcg/kg/min. And hopefully try to titrate norepinephrine as tolerated. History of implanted AICD/pacemaker History of coronary artery disease with previous CABG History of hypertension History of hyperlipidemia Diabetes mellitus, type II Acute kidney injury, possibly secondary to hypotension/ATN Hyperkalemia, secondary to above History of RSV tracheobronchitis July, Chronic normocytic, normochromic anemia, hemoglobin stable at 9.3 g/dL Dementia, takes Aricept on outpatient basis Recommendation: Continue pressors Continue inotropes Continue Lasix drip Continue heparin Continue cefepime and vancomycin and address based on cultures Continue GI prophylaxis Continue sliding scale insulin Patient remains critically ill requiring pressors and inotropes and diuretics Prognosis is guarded. Critical care time is 34 minutes Time with Patient: Greater than 30
[2024-11-19 16:07] LABS: Glucose,Whole Blood 293 mg/dL (70-110)
--- NOTE | 2024-11-19 16:26 | P.PN ---
Subjective Progress Note Date: 11/19/24 Principal diagnosis: Reason for follow-up is left heel infected pressure ulcer and bacteremia Patient is a 84-year-old female with a past medical history significant for Coronary Artery Disease (CAD), Heart Failure, Dementia, Diabetes Mellitus, Hypertension, Myocardial Infarction (MS), Pneumonia, Vascular Disorder, history of left heel infected pressure ulcer and half-way resident patient has been sent to the from the half-way as the patient was having mental status changes fever and elevated white count. On today's evaluation that is 11/19/2024,the patient remains to be afebrile, patient is on 2 L nasal cannula supplemental oxygen and denies any shortness of breath no chest pain or cough.Patient denies having any nausea or vomiting, no abdominal pain and no diarrhea has been reported. Patient white count is 14.31, creatinine is 1.88 vancomycin random 16.3, local culture growing presumptive MRSA Proteus and Pseudomonas Objective - Vital Signs Vital signs: Vital Signs Temp 97.9 F 11/19/24 14:15 Pulse 92 11/19/24 16:00 Resp 22 11/19/24 16:00 BP 106/51 11/19/24 16:00 Pulse Ox 100 11/19/24 16:00 FiO2 Intake & Output 11/18/24 11/19/24 11/19/24 18:59 06:59 18:59 Intake Total 2573.379 8067.722 820.585 Output Total 90 630 1505 Balance 1573.136 711.722 -684.415 Weight 72.2 kg Intake: IV 625.28 825.28 180 DOBUTamine DRIP 500 mg In 5.28 5.28 Dextrose/Water 1 250ml. bag @ 2.5 MCG/KG/MIN 5.28 mls/hr IV .Q24H [facility] Rx#: [id number] Furosemide 100 mg In 20 220 Sodium Chloride 0.9% 90 ml @ 20 MG/HR 20 mls/hr IV .Q5H [facility] Rx#:[id number] Sodium Chloride 0.9% 1, 600 600 180 000 ml @ 10 mls/hr IV . Q24H [facility] Rx#:[id number] Intake, IV Titration 317.856 516.442 640.585 Amount Cefepime 1 gm In Sodium 50 Chloride 0.9% 50 ml @ 12. 5 mls/hr IVPB Q12H [facility] Rx #:[id number] DOBUTamine DRIP 500 mg In 81.664 Dextrose/Water 1 250ml. bag @ 2.5 MCG/KG/MIN 5.28 mls/hr IV .Q24H [facility] Rx#: [id number] Furosemide 100 mg In 247.667 174.667 Sodium Chloride 0.9% 90 ml @ 20 MG/HR 20 mls/hr IV .Q5H [facility] Rx#:[id number] Heparin Sod,Pork in 0.45% 231.902 111.125 NaCl 25,000 unit In 0.45 % NaCl 1 250ml.bag @ 12 UNITS/KG/HR 7.62 mls/hr IV .Q24H [facility] Rx#: [id number] Norepinephrine 8 mg In 85.954 157.650 84.254 Sodium Chloride 0.9% 250 ml @ 0.03 MCG/KG/MIN 3. 686 mls/hr IV .Q24H [facility] Rx#:[id number] Vancomycin 1,250 mg In 250 Sodium Chloride 0.9% 250 ml @ 125 mls/hr IVPB ONCE ONE Rx#:[id number] Oral 480 Blood Product 240 Output: Urine 90 630 1505 Other: Voiding Method Indwelling Catheter Indwelling Catheter Indwelling Catheter - Exam GENERAL DESCRIPTION: An elderly female lying in bed in no distress RESPIRATORY SYSTEM: Unlabored breathing , decreased breath sounds at bases HEART: S1 S2 regular rate and rhythm , ABDOMEN: Soft , no tenderness EXTREMITIES: Left wound is currently dressed - Labs CBC & Chem 7: 11/19/24 05:36 11/19/24 05:36 Labs: Abnormal Lab Results - Last 24 Hours (Table) 11/18/24 11/18/24 11/19/24 Range/Units 17:56 21:05 05:36 WBC (4.50-10.00) 10*3/uL RBC (4.10-5.20) 10*6/uL Hgb (12.0-15.0) g/dL Hct (37.2-46.3) % MCH (27.0-32.0) pg MCHC (32.0-37.0) g/dL Immature Gran # (0.00-0.04) 10*3/uL Neutrophils # (1.80-7.70) 10*3/uL APTT (22.0-30.0) sec Sodium (137-145) mmol/L Potassium (3.5-5.1) mmol/L Carbon Dioxide (22-30) mmol/L BUN (7-17) mg/dL Creatinine (0.52-1.04) mg/dL Glucose (74-99) mg/dL POC Glucose (mg/dL) 253 H 296 H (70-110) mg/dL Hemoglobin A1c 8.2 H (<=6.0) % 11/19/24 11/19/24 11/19/24 Range/Units 05:36 05:36 05:36 WBC 14.31 H (4.50-10.00) 10*3/uL RBC 3.43 L (4.10-5.20) 10*6/uL Hgb 9.1 L (12.0-15.0) g/dL Hct 30.1 L (37.2-46.3) % MCH 26.5 L (27.0-32.0) pg MCHC 30.2 L (32.0-37.0) g/dL Immature Gran # 0.11 H (0.00-0.04) 10*3/uL Neutrophils # 12.33 H (1.80-7.70) 10*3/uL APTT 39.2 H (22.0-30.0) sec Sodium 131 L (137-145) mmol/L Potassium 5.2 H (3.5-5.1) mmol/L Carbon Dioxide 14 L (22-30) mmol/L BUN 95 H (7-17) mg/dL Creatinine 1.88 H (0.52-1.04) mg/dL Glucose 199 H (74-99) mg/dL POC Glucose (mg/dL) (70-110) mg/dL Hemoglobin A1c (<=6.0) % 11/19/24 11/19/24 11/19/24 Range/Units 06:35 11:09 12:20 WBC (4.50-10.00) 10*3/uL RBC (4.10-5.20) 10*6/uL Hgb (12.0-15.0) g/dL Hct (37.2-46.3) % MCH (27.0-32.0) pg MCHC (32.0-37.0) g/dL Immature Gran # (0.00-0.04) 10*3/uL Neutrophils # (1.80-7.70) 10*3/uL APTT 62.3 H (22.0-30.0) sec Sodium (137-145) mmol/L Potassium (3.5-5.1) mmol/L Carbon Dioxide (22-30) mmol/L BUN (7-17) mg/dL Creatinine (0.52-1.04) mg/dL Glucose (74-99) mg/dL POC Glucose (mg/dL) 217 H 224 H (70-110) mg/dL Hemoglobin A1c (<=6.0) % 11/19/24 Range/Units 16:06 WBC (4.50-10.00) 10*3/uL RBC (4.10-5.20) 10*6/uL Hgb (12.0-15.0) g/dL Hct (37.2-46.3) % MCH (27.0-32.0) pg MCHC (32.0-37.0) g/dL Immature Gran # (0.00-0.04) 10*3/uL Neutrophils # (1.80-7.70) 10*3/uL APTT (22.0-30.0) sec Sodium (137-145) mmol/L Potassium (3.5-5.1) mmol/L Carbon Dioxide (22-30) mmol/L BUN (7-17) mg/dL Creatinine (0.52-1.04) mg/dL Glucose (74-99) mg/dL POC Glucose (mg/dL) 293 H (70-110) mg/dL Hemoglobin A1c (<=6.0) % Microbiology - Last 24 Hours (Table) 11/17/24 08:30 Blood Culture Gram Stain - Preliminary Blood Blood Culture - Preliminary Presumptive MRSA Molecular ID 11/17/24 13:06 Gram Stain - Preliminary Leg - Left Wound Culture - Preliminary Presumptive MRSA Proteus mirabilis 11/17/24 13:05 Gram Stain - Preliminary Foot - Left Wound Culture - Preliminary Proteus mirabilis Pseudomonas aeruginosa 11/17/24 14:06 Urine Culture - Final Urine,Voided Assessment and Plan (1) Non healing left heel wound Current Visit: Yes Status: Acute Code(s): S91.302A - UNSPECIFIED OPEN WOUND, LEFT FOOT, INITIAL ENCOUNTER SNOMED Code(s): 871310499 (2) Septic shock Current Visit: Yes Status: Acute Code(s): A41.9 - SEPSIS, UNSPECIFIED ORGANISM; R65.21 - SEVERE SEPSIS WITH SEPTIC SHOCK SNOMED Code(s): 12770676 (3) Urinary tract infection Current Visit: Yes Status: Acute Code(s): N39.0 - URINARY TRACT INFECTION, SITE NOT SPECIFIED SNOMED Code(s): 04639256 (4) Bacteremia Current Visit: Yes Status: Acute Code(s): R78.81 - BACTEREMIA SNOMED Code(s): 5411477 Plan: 1patient presented hospital with sepsis in this patient who did have fever tachycardia tachypnea hypotension elevated white count meeting criteria for SIRS source is likely urinary as the patient has significantly positive UA plus minus infected left heel pressure ulcer with a previous history of MRSA infection to the left heel 2-sulfa allergy 3-blood cultures currently growing MRSA left heel culture currently growing MRSA's Proteus and Pseudomonas 4-patient noticed to have slight worsening of her creatinine we will discontinue vancomycin and start the patient on daptomycin and continue with the cefepime while waiting for sensitivity finalized Dictation was produced using [employer] dictation software. please excuse any grammatical, word or spelling errors. Time with Patient: Less than 30
[2024-11-19] MEDS: SODIUM BICARBONATE TAB 650 MG TAB PO SCH (16:54)
[2024-11-19 20:04] LABS: Glucose,Whole Blood 293 mg/dL (70-110)
[2024-11-20 01:02] LABS: African American GFR (CKD) 34 (>60 ml/min/1.73 sqM); Anion Gap 9 mmol/L; Blood Urea Nitrogen 88 mg/dL (7-17); Calcium 9.0 mg/dL (8.4-10.2); Carbon Dioxide 19 mmol/L (22-30); Chloride 106 mmol/L (98-107); Glucose 176 mg/dL (74-99); Non-African American GFR(CKD) 29 (>60 ml/min/1.73 sqM); Potassium 4.7 mmol/L (3.5-5.1); Sodium 134 mmol/L (137-145)
--- NOTE | 2024-11-20 02:18 | PN ---
PROGRESS NOTE DATE OF SERVICE: 11/19/2024 SUBJECTIVE: This is an 84-year-old woman who was admitted with multiple medical problems and with MRSA sepsis, has multiple organisms grown from the culture also from the leg wounds. The patient was found to have possibly C3-4 lesions with prominent prevertebral soft tissue thickening, possibly abscess or infectious process. Orthopedics is recommending surgical intervention. The patient has been closely monitored. No fever. No cough. PAST MEDICAL HISTORY: Reviewed. REVIEW OF SYSTEMS: Fourteen-point review of systems negative except as mentioned earlier. CURRENT MEDICATIONS: Reviewed. PHYSICAL EXAMINATION: VITAL SIGNS: Pulse is 98, blood pressure 97/74, respirations 26. HEENT: Conjunctivae normal. NECK: Movements are painful. CARDIOVASCULAR: S1, S2. RESPIRATION: A few scattered rhonchi. ABDOMEN: Soft. NERVOUS SYSTEM: Nonfocal. LABORATORY DATA: Reviewed. ASSESSMENT: 1. Sepsis with hypotension, possibly from the osteomyelitis, as well as paravertebral abscess in the cervical C3 area. 2. Possible acute on chronic cellulitis of the left leg. 3. Methicillin-resistant staphylococcus aureus from the blood and multiple organisms from the wound. 4. Troponin 0.20, possible acute xyx-SW-dlvpili-elevation myocardial infarction. 5. Acute renal failure, acute tubular necrosis with hyperkalemia. 6. Possible acute urinary tract infection. 7. Elevated WBC. 8. Anemia, normocytic. 9. History of coronary artery disease, coronary artery bypass grafting stent. 10.History of congestive heart failure. 11.History of dementia. 12.Diabetes mellitus, type 2. 13.Pneumonia. 14.History of multiple complex medical issues. 15.History of automatic implantable cardioverter-defibrillator. RECOMMENDATIONS: Recommended to continue current management and symptomatic treatment. Otherwise, at this time, continue with the broad-spectrum IV antibiotics. I would recommend proceeding with surgical intervention if the extra risk is acceptable to the family. Once again, overall prognosis is extremely guarded. Continue with the current medication management along with multiple consultations in ICU. The patient is on cefepime and vancomycin. Guarded prognosis. Further recommendations to follow. MMODL / IJN: [id number] /
[2024-11-20 05:38] LABS: Basophils # (A) 0.03 10*3/uL (0.00-0.10); Basophils % (A) 0.2 %; Eosinophils # (A) 0.11 10*3/uL (0.04-0.35); Eosinophils % (A) 0.9 %; HCT 29.2 % (37.2-46.3); HGB 9.1 g/dL (12.0-15.0); Lymphocytes # (A) 0.94 10*3/uL (0.90-5.00); Lymphocytes % (A) 7.8 %; MCH 26.8 pg (27.0-32.0); MCHC 31.2 g/dL (32.0-37.0); MCV 86.1 fL (80.0-97.0); Monocytes # (A) 0.69 10*3/uL (0.20-1.00); Monocytes % (A) 5.7 %; Neutrophils # (A) 10.25 10*3/uL (1.80-7.70); Neutrophils % (A) 84.6 %; Platelet Count 430 10*3/uL (140-440); RBC 3.39 10*6/uL (4.10-5.20); RDW 15.9 % (11.5-14.5); WBC 12.12 10*3/uL (4.50-10.00)
[2024-11-20 06:03] LABS: African American GFR (CKD) 37 (>60 ml/min/1.73 sqM); Non-African American GFR(CKD) 32 (>60 ml/min/1.73 sqM)
[2024-11-20 06:04] LABS: African American GFR (CKD) 40 (>60 ml/min/1.73 sqM); Anion Gap 12 mmol/L; Blood Urea Nitrogen 87 mg/dL (7-17); Calcium 9.0 mg/dL (8.4-10.2); Carbon Dioxide 17 mmol/L (22-30); Chloride 105 mmol/L (98-107); Glucose 187 mg/dL (74-99); Non-African American GFR(CKD) 35 (>60 ml/min/1.73 sqM); Potassium 4.6 mmol/L (3.5-5.1); Sodium 134 mmol/L (137-145)
[2024-11-20 06:32] LABS: Glucose,Whole Blood 200 mg/dL (70-110)
--- NOTE | 2024-11-20 09:14 | P.PN ---
Progress Note - Text Progress Note Date: 11/20/24 Patient's procedure that was scheduled 11/19/2024, C2-C6 fusion with C3-C4 corpectomy and removal of infectious phlegmon, was canceled due to anesthesia not being comfortable with current medical status of the patient. There has been discussion on the risks of patient waiting for this procedure due to the infectious process in the cervical spine. Family has been notified and they would like to continue to proceed with procedure if granted. Surgical intervention has been postponed by anesthesia and has been tentatively scheduled for 11/21/2024 pending optimization of patient's medical status.
[2024-11-20] MEDS: FUROSEMIDE 100 MG in SODIUM CHLORIDE 0.9% 90 ML IV SCH (10:38)
[2024-11-20 11:38] LABS: Glucose,Whole Blood 222 mg/dL (70-110)
--- NOTE | 2024-11-20 13:19 | P.PN ---
Subjective Progress Note Date: 11/20/24 Principal diagnosis: Acute febrile illness with sepsis and septic shock, Patient is 84-year-old female sent in by EMS from her skilled nursing, [facility], yesterday after being noted to be confused, lethargic, with low blood pressures. She was tachycardic with a temperature of 100.8 F. Concerns for sepsis. On arrival, she was hypotensive, fluid resuscitated with a total of 3 L crystalloid fluid. Norepinephrine was started as the blood pressure did not respond to fluid alone. Started on a combination of cefepime and vancomycin for broad- spectrum antibiotic coverage. Serial troponins were elevated, and patient was also diagnosed with acute non-ST elevation WI and started on IV heparin per protocol. 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 Of note, had a recent hospitalization back in July, for sepsis and CHF exacerbation. MRSA was isolated in her blood. SILVIANO done on 08/10/2024 did not show any vegetation. There was a severely reduced left ventricular ejection fraction of 30 to 35%, moderate mitral and tricuspid regurgitation with severe pulmonary hypertension. Mild to moderate aortic regurgitation. Treated with IV antibiotics. She also has history of ischemic cardiomyopathy, biventricular AICD, previous CABG, hypertension, hyperlipidemia, diabetes mellitus type 2, dementia, among other debilitating comorbidities. Workup in the emergency department including chest x-ray showing stable pulmonary vascular congestion with scattered infiltrates and small effusions suggestive of congestive heart failure. X-ray left foot with soft tissue wound over the heel without evidence of osseous erosion. Urinalysis was positive for pyuria and bacteria. CBC with a WBC count of 13.4, hemoglobin 9.3, platelets 439. CMP: Sodium 132, potassium 5.7, chloride 98, serum bicarb 21, BUN 76, creatinine 1.35, glucose 219. LFTs mildly elevated. Troponins elevated at 1.11, 2.2, 4.3, and 5.5 respectively. EKG showing a ventricularly paced rhythm. IV heparin continues per protocol. VBG with a pCO2 of 39 and pH of 7.38. Viral 4 Plex negative for influenza A/B, RSV, COVID of note, on her p revious hospitalization in July was positive for RSV. Currently, patient is being observed in the intensive care unit. She is currently awake and alert. She is oriented to self and place. Does not recall events prior to coming to the hospital. I am told this could be her baseline. She does have dementia and takes Aricept at the skilled nursing. Denies any chest pain. IV heparin continues per protocol. Blood pressure is being supported with norepinephrine which is infusing at 0.04 mcg/kg/min. Previously febrile with a Tmax of 101.9 F, and this is down and currently normothermic. Urinary catheter was placed which is draining clear urine. Normal saline to be started at 50 mL/h. pancultures are pending. Patient previously complaining of neck pain, however, denies this to me. She has a CT of the neck and chest ordered. No respiratory distress or stridor. On room air. Patient was seen today on 11/19/2024, remains in the ICU, patient is still requiring norepinephrine at 0.13 mcg/kg/min, she received significant amount of fluid boluses, patient is known to have history of severe LV dysfunction and history of congestive heart failure, hence we cut back on her fluids, patient was not making significant urine output yesterday in spite of all the fluids given and in spite of Lasix IV push, hence I recommended patient going on dobutamine at 2.5 mcg/kg/min, I recommended a Lasix drip at 20 mg/h. Patient did quite well with the infusion of Lasix and dobutamine. Her urine output has been excellent while on Lasix, she is on 2 L nasal cannula, does not seem to be uncomfortable. For her non-ST elevation myocardial infarction, patient remains on heparin, she had abnormal troponins, patient is again noted to have history of severe ischemic cardiomyopathy and previous AICD placement. Considering the overall picture, at this point the patient is an absolute contraindication to any cervical surgery. WBC count is 14.3 hemoglobin 9.1 electrolytes are normal renal profile is normal BUN is 95 creatinine 1.88 bicarb is 14. Patient will be placed on oral bicarb for now. Patient was seen today on 11/20/2024, patient remains in the ICU, remains unstable, still requiring norepinephrine at 0.05 mcg/kg/min she was on Dobutrex at 5 mcg/kg/min however she developed tachyarrhythmia and had to go down to 2.5 mg/kg/min, continues to have now frequent PVCs, I recommended stopping the dobutamine altogether. Patient is still on Lasix at 20 mg/h and I cut it down to 10 mg/h. Her cultures have all been reviewed, patient had positive blood cultures on 11/17 showing MRSA in the blood, her wound cultures showed Proteus mirabilis Pseudomonas Klebsiella and corynebacterium stratum her left leg wound culture showed MRSA and Proteus mirabilis. So obviously the patient is a great set up for sepsis and septic shock as she presented with. Not to mention the patient has severe cardiomyopathy and LV dysfunction. She had previous AICD placement. Still believe the patient has absolute contraindication to surgery, and I will not clear the patient for surgery at this point in time as it is extremely risky and possibly fatal. Patient has multiple comorbidities which makes surgery at this point and absolute current indication remember patient is not hemodynamically stable and her presentation was a presentation of sepsis and septic shock. WBC count is 12.1 hemoglobin 9.1 electrolytes are normal BUN is 87 creatinine 1.40 PTT is 50. Blood sugar is 222. Chest x-ray yesterday showed cardiomegaly, right pleural effusion, right basilar consolidation, and pulmonary vascular congestion consistent with congestive heart failure. Objective - Vital Signs Vital signs: Vital Signs Temp 98 F 11/20/24 08:00 Pulse 92 11/20/24 10:00 Resp 25 H 11/20/24 10:00 BP 99/48 11/20/24 10:00 Pulse Ox 99 11/20/24 10:00 FiO2 Intake & Output 11/19/24 11/20/24 11/20/24 18:59 06:59 18:59 Intake Total 877.545 707.259 129.835 Output Total 1955 1465 785 Balance -1077.455 -757.741 -655.165 Weight 74.4 kg Intake: IV 200 100 40 Sodium Chloride 0.9% 1, 200 100 40 000 ml @ 10 mls/hr IV . Q24H [facility] Rx#:[id number] Intake, IV Titration 677.545 607.259 89.835 Amount Cefepime 1 gm In Sodium 50 50 Chloride 0.9% 50 ml @ 12. 5 mls/hr IVPB Q12H [facility] Rx #:[id number] DAPTOmycin 450 mg In 50 Sodium Chloride 0.9% 50 ml @ 100 mls/hr IVPB Q48H [facility] Rx#:[id number] DOBUTamine DRIP 500 mg In 118.624 Dextrose/Water 1 250ml. bag @ 2.5 MCG/KG/MIN 5.28 mls/hr IV .Q24H [facility] Rx#: [id number] Furosemide 100 mg In 174.667 287.333 Sodium Chloride 0.9% 90 ml @ 20 MG/HR 20 mls/hr IV .Q5H [facility] Rx#:[id number] Heparin Sod,Pork in 0.45% 130.217 NaCl 25,000 unit In 0.45 % NaCl 1 250ml.bag @ 12 UNITS/KG/HR 7.62 mls/hr IV .Q24H [facility] Rx#: [id number] Norepinephrine 8 mg In 84.254 139.709 39.835 Sodium Chloride 0.9% 250 ml @ 0.03 MCG/KG/MIN 3. 686 mls/hr IV .Q24H [facility] Rx#:[id number] Vancomycin 1,250 mg In 250 Sodium Chloride 0.9% 250 ml @ 125 mls/hr IVPB ONCE ONE Rx#:[id number] Output: Urine 1955 1465 785 Other: Voiding Method Indwelling Catheter Indwelling Catheter Indwelling Catheter - Exam GENERAL EXAM: Revealed 84-year-old female in no distress on 2 L nasal cannula HEAD: Normocephalic and atraumatic EYES: Normal reaction of pupils, equal size. NOSE: Clear with pink turbinates. THROAT: No erythema or exudates. NECK: No masses, no JVD. CHEST: No chest wall deformity. Left chest implanted AICD/pacemaker generator. Remote appearing sternotomy incision. LUNGS: Crackles in the bases no rhonchi no wheezes CVS: S1 and S2 normal with no audible murmur, regular rhythm. No extra heart sounds ABDOMEN: No hepatosplenomegaly, active bowel sounds, no guarding or rigidity. SKIN: Multiple skin lesions as noted below CENTRAL NERVOUS SYSTEM: No focal deficits, tone is normal in all 4 extremities. EXTREMITIES: There is mild nonpitting lower extremity edema bilaterally. Left heel wound dressed with new dressing. No clubbing or cyanosis. Peripheral pulses are intact. - Labs CBC & Chem 7: 11/20/24 05:19 11/20/24 05:19 Labs: Abnormal Lab Results - Last 24 Hours (Table) 11/19/24 11/19/24 11/20/24 Range/Units 16:06 20:04 00:05 WBC (4.50-10.00) 10*3/uL RBC (4.10-5.20) 10*6/uL Hgb (12.0-15.0) g/dL Hct (37.2-46.3) % MCH (27.0-32.0) pg MCHC (32.0-37.0) g/dL Immature Gran # (0.00-0.04) 10*3/uL Neutrophils # (1.80-7.70) 10*3/uL APTT (22.0-30.0) sec Sodium 134 L (137-145) mmol/L Carbon Dioxide 19 L (22-30) mmol/L BUN 88 H (7-17) mg/dL Creatinine 1.62 H (0.52-1.04) mg/dL Glucose 176 H (74-99) mg/dL POC Glucose (mg/dL) 293 H 293 H (70-110) mg/dL 11/20/24 11/20/24 11/20/24 Range/Units 05:19 05:19 05:19 WBC 12.12 H (4.50-10.00) 10*3/uL RBC 3.39 L (4.10-5.20) 10*6/uL Hgb 9.1 L (12.0-15.0) g/dL Hct 29.2 L (37.2-46.3) % MCH 26.8 L (27.0-32.0) pg MCHC 31.2 L (32.0-37.0) g/dL Immature Gran # 0.10 H (0.00-0.04) 10*3/uL Neutrophils # 10.25 H (1.80-7.70) 10*3/uL APTT 50.0 H (22.0-30.0) sec Sodium (137-145) mmol/L Carbon Dioxide (22-30) mmol/L BUN (7-17) mg/dL Creatinine 1.50 H (0.52-1.04) mg/dL Glucose (74-99) mg/dL POC Glucose (mg/dL) (70-110) mg/dL 11/20/24 11/20/24 11/20/24 Range/Units 05:19 06:31 11:37 WBC (4.50-10.00) 10*3/uL RBC (4.10-5.20) 10*6/uL Hgb (12.0-15.0) g/dL Hct (37.2-46.3) % MCH (27.0-32.0) pg MCHC (32.0-37.0) g/dL Immature Gran # (0.00-0.04) 10*3/uL Neutrophils # (1.80-7.70) 10*3/uL APTT (22.0-30.0) sec Sodium 134 L (137-145) mmol/L Carbon Dioxide 17 L (22-30) mmol/L BUN 87 H (7-17) mg/dL Creatinine 1.40 H (0.52-1.04) mg/dL Glucose 187 H (74-99) mg/dL POC Glucose (mg/dL) 200 H 222 H (70-110) mg/dL Microbiology - Last 24 Hours (Table) 11/17/24 08:30 Blood Culture Gram Stain - Final Blood Blood Culture - Final Methicillin resist S. aureus Molecular ID 11/17/24 13:06 Gram Stain - Final Leg - Left Wound Culture - Final Methicillin resist S. aureus Proteus mirabilis 11/17/24 13:05 Gram Stain - Preliminary Foot - Left Wound Culture - Preliminary Proteus mirabilis Pseudomonas aeruginosa Klebsiella pneum subsp pneum Corynebacterium striatum group Assessment and Plan Assessment: Impression: Sepsis, septic shock, refractory to fluid resuscitation, currently requiring low-dose norepinephrine remains on norepinephrine being titrated. Acute febrile illness, with bacteremia noted on 11/17/2024, 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, Pseudomonas aeruginosa, Proteus MirabellisHistory of MRSA bacteremia, SILVIANO done on 08/10/2024 did not show any vegetation. There was a severely reduced left ventricular ejection fraction of 30 to 35%, moderate mitral and tricuspid regurgitation with severe pulmonary hypertension. Mild to moderate aortic regurgitation. Treated with IV vancomycin Acute non-ST elevation WI, currently on IV heparin per protocol Ischemic cardiomyopathy, required dobutamine at 2.5 mcg/kg/min which I have placed on hold today History of implanted AICD/pacemaker History of coronary artery disease with previous CABG History of hypertension History of hyperlipidemia Diabetes mellitus, type II Acute kidney injury, possibly secondary to hypotension/ATN slightly better today with dobutamine and Lasix drip which I cut down to 10 mg/h Hyperkalemia, secondary to above History of RSV tracheobronchitis July, Chronic normocytic, normochromic anemia Dementia, takes Aricept on outpatient basis Recommendation: Continue pressors, titrate norepinephrine to mean arterial pressure above 60 Hold dobutamine this morning Continue Lasix drip however cut down dose to 10 mg/h Continue heparin Continue cefepime and vancomycin, being addressed by infectious disease on the case. Continue GI prophylaxis Continue sliding scale insulin Patient remains critically ill requiring pressors, and I just discontinued dobutamine today. Considering the overall picture as noted above, at this point I believe the patient is not ready to go for any surgical intervention, surgery is absolutely contraindicated at this time, no pulmonary clearance at this point in time. Patient remains critically ill, and spite of slight improvement noted over the last 2 days. Again no pulmonary clearance at this point for cervical surgery. Critical care time is 33 minutes Time with Patient: Greater than 30
--- NOTE | 2024-11-20 13:27 | PN ---
PROGRESS NOTE DATE OF SERVICE: 11/20/2024 SUBJECTIVE: This 84-year-old woman is admitted with multiple medical problems including MRSA sepsis, also had left leg wound ulcer, but the patient had significant multiple lesions in the cervical area, possibly osteomyelitis or paravertebral abscess. Orthopedics is planning surgery. The patient is still hypotensive, on pressor support. The family is willing to take the risk to undergo the surgery at this time. PAST MEDICAL HISTORY: Reviewed. REVIEW OF SYSTEMS: Could not be taken, as the patient is slightly drowsy. CURRENT MEDICATIONS: Reviewed. PHYSICAL EXAMINATION: VITAL SIGNS: Pulse 90, blood pressure 103/50, respirations 25. CHEST: A few scattered rhonchi and crackles. ABDOMEN: Soft. NERVOUS SYSTEM: Diffusely weak. Neck movements are painful. LABORATORY DATA: WBC 12.12. Rest of the labs are reviewed. ASSESSMENT: 1. Methicillin-resistant Staphylococcus aureus sepsis with hypotension, possible from osteomyelitis as well as paravertebral abscess with cervical C3-C4 area. 2. Possible acute on chronic cellulitis of the left leg. 3. Polymicrobial. 4. Troponin 0.2, rule out acute [id number]-[id number]-elevation myocardial infarction. 5. Acute renal failure with acute tubular necrosis and hyperkalemia. 6. Urinary tract infection, possibly. 7. Increased WBC. 8. Anemia, normocytic. 9. History of coronary artery disease, CABG stent. 10.History of congestive heart failure. 11.History of dementia. 12.Diabetes mellitus, type 2. 13.History of pneumonia. 14.History of multiple complex medical issues. 15.History of automatic implantable cardioverter-defibrillator. RECOMMENDATIONS: Recommended to continue current management and symptomatic treatment. Closely follow with multiple consultants. Her prognosis is extremely guarded, but however, surgery may over benefit because of above-mentioned medical issues. I would recommend repeat labs and also repeat a chest x-ray, also discussed at length with the family. Further recommendations are to follow. MMODL / IJN: [id number] /
--- NOTE | 2024-11-20 13:31 | P.PN ---
Subjective Progress Note Date: 11/20/24 The patient is an 85-year-old female patient who is known to our service from before with a past medical history significant for CAD status post CABG as well as ischemic cardiomyopathy status post AICD and also hypertension and dyslipidemia and diabetes and multiple comorbid conditions including chronic a nemia. The patient is a resident at [facility]. She is somewhat poor historian. The patient was brought from the [facility] to the hospital because of low blood pressure associated with increasing in the shortness of breath and change in mental status. She was found to be hypoxic in the ER and she was admitted to the ICU and placed on oxygen. Also she was found to be hypotensive requiring norepinephrine to support her pressure. Also further evaluation was performed including troponin came to be abnormal. There is a concern about pulmonary embolism given the abnormal D-dimer and currently the patient is in process of having a CT scan of the chest. The EKG showed sinus with paced rhythm and also the patient is tachycardic and she is in mild hypoxic respiratory failure and mild respiratory distress. Hemodynamically she still unstable requiring small dose of norepinephrine. No symptoms of chest pain or chest discomfort beside the shortness of breath. The physical examination is remarkable for mild respiratory distress with regular rate and rhythm and distant heart sounds and soft systolic murmur and diminished breathing sounds bilaterally and mild bilateral lower extremities edema noted with the chest x-ray showed evidence of pulmonary vascular congestions. No NT proBNP was ordered. The troponin is definitely elevated and currently she is on heparin. She has resided at [facility] for 3 years. November 19, 2024 The patient was seen and evaluated this morning. She underwent an echo yesterday and that revealed severe cardiomyopathy with EF at 15%. She underwent a CT scan of the neck which showed osteomyelitis and she was seen by the surgical team with possible taking the patient to the OR. The patient is at very high risk at this stage given the severe cardiomyopathy and giving the ACS with elevated troponin on admission and giving the hypotension requiring norepinephrine and given the decompensated heart failure and currently she is on Lasix IV as well as dobutamine IV. Beside that the CT scan of the chest did not show any evidence of pulmonary embolism. The physical examination is remarkable for regular rhythm with heart rate in the 90s and systolic murmur at the right upper sternal border with diminished breathing sounds bilaterally and mild bilateral lower extremities edema. November 20, 2024 She awakens to voice. Answering some questions. She reports having pain in neck/shoulder. Dobutamine was discontinued, lasix decreased to 10mg. She remains on levophed. Family at bedside does not think she is back to baseline since July when she had pneumonia. PHYSICAL EXAMINATION: This is a 84-year-old female in no apparent distress at the time of my examination. HEENT: Head is atraumatic, normocephalic. Pupils are equal, round. Sclerae anicteric. Conjunctivae are clear. Mucous membranes of the mouth are moist. Neck is flexed forward in bed. There is no jugular venous distention. CHEST EXAMINATION: Lungs are diminished. On NC O2. No chest wall tenderness is noted on palpation or with deep breathing. HEART EXAMINATION: Heart regular rate and rhythm. S1, S2 heard. No gallops or rub. Distant heart sounds and soft systolic murmur ABDOMEN: Soft, nontender. Bowel sounds are heard. EXTREMITIES: 2+ peripheral pulses with no evidence of peripheral edema and no calf tenderness noted. NEUROLOGIC EXAMINATION: Patient awakens to voice, alert and oriented x3. Assessment Change in mental status which has improved Low blood pressure requiring norepinephrine Mild respiratory distress Abnormal D-dimer with no evidence of PE Abnormal troponin CAD status post CABG Ischemic cardiomyopathy, EF 10-15% Status post AICD Anuria Multiple comorbid conditions MRSA infection, multiple locations Plan Continue heparin for a total of 48 hours Add aspirin to the current medical regimen Consider adding small dose of beta-maryam and the rest of the cardiomyopathy medications once the blood pressure permitting Try to wean norepinephrine as able The patient is at high risk for any surgical intervention at this point, long discussion with family regarding risks vs benefits. Would not recommend surgery at this time. Make consider further assessment when hemodydamically stable. Recommend goals of care discussion. Will follow. I am dictating on behalf of Dr. Samir Landaverde's history/physical and assessment/plan. Objective - Vital Signs Vital signs: Vital Signs Temp 98 F 11/20/24 08:00 Pulse 92 11/20/24 10:00 Resp 25 H 11/20/24 10:00 BP 99/48 11/20/24 10:00 Pulse Ox 99 11/20/24 10:00 FiO2 Intake & Output 11/19/24 11/20/24 11/20/24 18:59 06:59 18:59 Intake Total 877.545 707.259 129.835 Output Total 1954 1465 785 Balance -1077.455 -757.741 -655.165 Weight 74.4 kg Intake: IV 200 100 40 Sodium Chloride 0.9% 1, 200 100 40 000 ml @ 10 mls/hr IV . Q24H [facility] Rx#:[id number] Intake, IV Titration 677.545 607.259 89.835 Amount Cefepime 1 gm In Sodium 50 50 Chloride 0.9% 50 ml @ 12. 5 mls/hr IVPB Q12H [facility] Rx #:[id number] DAPTOmycin 450 mg In 50 Sodium Chloride 0.9% 50 ml @ 100 mls/hr IVPB Q48H [facility] Rx#:[id number] DOBUTamine DRIP 500 mg In 118.624 Dextrose/Water 1 250ml. bag @ 2.5 MCG/KG/MIN 5.28 mls/hr IV .Q24H [facility] Rx#: [id number] Furosemide 100 mg In 174.667 287.333 Sodium Chloride 0.9% 90 ml @ 20 MG/HR 20 mls/hr IV .Q5H [facility] Rx#:[id number] Heparin Sod,Pork in 0.45% 130.217 NaCl 25,000 unit In 0.45 % NaCl 1 250ml.bag @ 12 UNITS/KG/HR 7.62 mls/hr IV .Q24H [facility] Rx#: [id number] Norepinephrine 8 mg In 84.254 139.709 39.835 Sodium Chloride 0.9% 250 ml @ 0.03 MCG/KG/MIN 3. 686 mls/hr IV .Q24H [facility] Rx#:[id number] Vancomycin 1,250 mg In 250 Sodium Chloride 0.9% 250 ml @ 125 mls/hr IVPB ONCE ONE Rx#:[id number] Output: Urine 1954 1465 785 Other: Voiding Method Indwelling Catheter Indwelling Catheter Indwelling Catheter - Labs CBC & Chem 7: 11/20/24 05:19 11/20/24 05:19 Labs: Abnormal Lab Results - Last 24 Hours (Table) 11/19/24 11/19/24 11/20/24 Range/Units 16:06 20:04 00:05 WBC (4.50-10.00) 10*3/uL RBC (4.10-5.20) 10*6/uL Hgb (12.0-15.0) g/dL Hct (37.2-46.3) % MCH (27.0-32.0) pg MCHC (32.0-37.0) g/dL Immature Gran # (0.00-0.04) 10*3/uL Neutrophils # (1.80-7.70) 10*3/uL APTT (22.0-30.0) sec Sodium 134 L (137-145) mmol/L Carbon Dioxide 19 L (22-30) mmol/L BUN 88 H (7-17) mg/dL Creatinine 1.62 H (0.52-1.04) mg/dL Glucose 176 H (74-99) mg/dL POC Glucose (mg/dL) 293 H 293 H (70-110) mg/dL 11/20/24 11/20/24 11/20/24 Range/Units 05:19 05:19 05:19 WBC 12.12 H (4.50-10.00) 10*3/uL RBC 3.39 L (4.10-5.20) 10*6/uL Hgb 9.1 L (12.0-15.0) g/dL Hct 29.2 L (37.2-46.3) % MCH 26.8 L (27.0-32.0) pg MCHC 31.2 L (32.0-37.0) g/dL Immature Gran # 0.10 H (0.00-0.04) 10*3/uL Neutrophils # 10.25 H (1.80-7.70) 10*3/uL APTT 50.0 H (22.0-30.0) sec Sodium (137-145) mmol/L Carbon Dioxide (22-30) mmol/L BUN (7-17) mg/dL Creatinine 1.50 H (0.52-1.04) mg/dL Glucose (74-99) mg/dL POC Glucose (mg/dL) (70-110) mg/dL 11/20/24 11/20/24 11/20/24 Range/Units 05:19 06:31 11:37 WBC (4.50-10.00) 10*3/uL RBC (4.10-5.20) 10*6/uL Hgb (12.0-15.0) g/dL Hct (37.2-46.3) % MCH (27.0-32.0) pg MCHC (32.0-37.0) g/dL Immature Gran # (0.00-0.04) 10*3/uL Neutrophils # (1.80-7.70) 10*3/uL APTT (22.0-30.0) sec Sodium 134 L (137-145) mmol/L Carbon Dioxide 17 L (22-30) mmol/L BUN 87 H (7-17) mg/dL Creatinine 1.40 H (0.52-1.04) mg/dL Glucose 187 H (74-99) mg/dL POC Glucose (mg/dL) 200 H 222 H (70-110) mg/dL Microbiology - Last 24 Hours (Table) 11/17/24 08:30 Blood Culture Gram Stain - Final Blood Blood Culture - Final Methicillin resist S. aureus Molecular ID 11/17/24 13:06 Gram Stain - Final Leg - Left Wound Culture - Final Methicillin resist S. aureus Proteus mirabilis 11/17/24 13:05 Gram Stain - Preliminary Foot - Left Wound Culture - Preliminary Proteus mirabilis Pseudomonas aeruginosa Klebsiella pneum subsp pneum Corynebacterium striatum group
--- NOTE | 2024-11-20 16:02 | P.PN ---
Subjective Progress Note Date: 11/20/24 Principal diagnosis: Reason for follow-up is left heel infected pressure ulcer and bacteremia Patient is a 84-year-old female with a past medical history significant for Coronary Artery Disease (CAD), Heart Failure, Dementia, Diabetes Mellitus, Hypertension, Myocardial Infarction ([place]), Pneumonia, Vascular Disorder, history of left heel infected pressure ulcer and [facility] patient has been [facility] as the patient was having mental status changes fever and elevated white count. On today's evaluation that is 11/20/2024, the patient continues to be afebrile, the patient is on 2 L nasal oxygen and breathing comfortably, the Pt denies having any chest pain or cough, the patient denies having any abdominal pain no vomiting or any diarrhea has been reported by the nursing staff. Patient white count is down to 12.12, creatinine is 1.40, blood culture with MRSA local culture with Proteus Pseudomonas MRSA, CT of the cervical spine with abnormal destructive changes involving the C3 and C4 vertebral bodies but no abscess Objective - Vital Signs Vital signs: Vital Signs Temp 97.8 F 11/20/24 12:00 Pulse 88 11/20/24 15:00 Resp 26 H 11/20/24 15:00 BP 96/50 11/20/24 15:00 Pulse Ox 100 11/20/24 15:00 FiO2 Intake & Output 11/19/24 11/20/24 11/20/24 18:59 06:59 18:59 Intake Total 877.545 707.259 649.835 Output Total 1955 1465 1185 Balance -1077.455 -757.741 -535.165 Weight 74.4 kg Intake: IV 200 100 80 Sodium Chloride 0.9% 1, 200 100 80 000 ml @ 10 mls/hr IV . Q24H [facility] Rx#:[id number] Intake, IV Titration 677.545 607.259 89.835 Amount Cefepime 1 gm In Sodium 50 50 Chloride 0.9% 50 ml @ 12. 5 mls/hr IVPB Q12H [facility] Rx #:[id number] DAPTOmycin 450 mg In 50 Sodium Chloride 0.9% 50 ml @ 100 mls/hr IVPB Q48H [facility] Rx#:[id number] DOBUTamine DRIP 500 mg In 118.624 Dextrose/Water 1 250ml. bag @ 2.5 MCG/KG/MIN 5.28 mls/hr IV .Q24H [facility] Rx#: [id number] Furosemide 100 mg In 174.667 287.333 Sodium Chloride 0.9% 90 ml @ 20 MG/HR 20 mls/hr IV .Q5H [facility] Rx#:[id number] Heparin Sod,Pork in 0.45% 130.217 NaCl 25,000 unit In 0.45 % NaCl 1 250ml.bag @ 12 UNITS/KG/HR 7.62 mls/hr IV .Q24H [facility] Rx#: [id number] Norepinephrine 8 mg In 84.254 139.709 39.835 Sodium Chloride 0.9% 250 ml @ 0.03 MCG/KG/MIN 3. 686 mls/hr IV .Q24H [facility] Rx#:[id number] Vancomycin 1,250 mg In 250 Sodium Chloride 0.9% 250 ml @ 125 mls/hr IVPB ONCE ONE Rx#:[id number] Oral 480 Output: Urine 1955 1465 1185 Other: Voiding Method Indwelling Catheter Indwelling Catheter Indwelling Catheter - Exam GENERAL DESCRIPTION: An elderly female lying in bed in no distress RESPIRATORY SYSTEM: Unlabored breathing , decreased breath sounds at bases HEART: S1 S2 regular rate and rhythm , ABDOMEN: Soft , no tenderness EXTREMITIES: Left wound is currently dressed - Labs CBC & Chem 7: 11/20/24 05:19 11/20/24 05:19 Labs: Abnormal Lab Results - Last 24 Hours (Table) 11/19/24 11/19/24 11/20/24 Range/Units 16:06 20:04 00:05 WBC (4.50-10.00) 10*3/uL RBC (4.10-5.20) 10*6/uL Hgb (12.0-15.0) g/dL Hct (37.2-46.3) % MCH (27.0-32.0) pg MCHC (32.0-37.0) g/dL Immature Gran # (0.00-0.04) 10*3/uL Neutrophils # (1.80-7.70) 10*3/uL APTT (22.0-30.0) sec Sodium 134 L (137-145) mmol/L Carbon Dioxide 19 L (22-30) mmol/L BUN 88 H (7-17) mg/dL Creatinine 1.62 H (0.52-1.04) mg/dL Glucose 176 H (74-99) mg/dL POC Glucose (mg/dL) 293 H 293 H (70-110) mg/dL 11/20/24 11/20/24 11/20/24 Range/Units 05:19 05:19 05:19 WBC 12.12 H (4.50-10.00) 10*3/uL RBC 3.39 L (4.10-5.20) 10*6/uL Hgb 9.1 L (12.0-15.0) g/dL Hct 29.2 L (37.2-46.3) % MCH 26.8 L (27.0-32.0) pg MCHC 31.2 L (32.0-37.0) g/dL Immature Gran # 0.10 H (0.00-0.04) 10*3/uL Neutrophils # 10.25 H (1.80-7.70) 10*3/uL APTT 50.0 H (22.0-30.0) sec Sodium (137-145) mmol/L Carbon Dioxide (22-30) mmol/L BUN (7-17) mg/dL Creatinine 1.50 H (0.52-1.04) mg/dL Glucose (74-99) mg/dL POC Glucose (mg/dL) (70-110) mg/dL 11/20/24 11/20/24 11/20/24 Range/Units 05:19 06:31 11:37 WBC (4.50-10.00) 10*3/uL RBC (4.10-5.20) 10*6/uL Hgb (12.0-15.0) g/dL Hct (37.2-46.3) % MCH (27.0-32.0) pg MCHC (32.0-37.0) g/dL Immature Gran # (0.00-0.04) 10*3/uL Neutrophils # (1.80-7.70) 10*3/uL APTT (22.0-30.0) sec Sodium 134 L (137-145) mmol/L Carbon Dioxide 17 L (22-30) mmol/L BUN 87 H (7-17) mg/dL Creatinine 1.40 H (0.52-1.04) mg/dL Glucose 187 H (74-99) mg/dL POC Glucose (mg/dL) 200 H 222 H (70-110) mg/dL Microbiology - Last 24 Hours (Table) 11/17/24 08:30 Blood Culture Gram Stain - Final Blood Blood Culture - Final Methicillin resist S. aureus Molecular ID 11/17/24 13:06 Gram Stain - Final Leg - Left Wound Culture - Final Methicillin resist S. aureus Proteus mirabilis 11/17/24 13:05 Gram Stain - Preliminary Foot - Left Wound Culture - Preliminary Proteus mirabilis Pseudomonas aeruginosa Klebsiella pneum subsp pneum Corynebacterium striatum group Assessment and Plan (1) Non healing left heel wound Current Visit: Yes Status: Acute Code(s): S91.302A - UNSPECIFIED OPEN WOUND, LEFT FOOT, INITIAL ENCOUNTER SNOMED Code(s): 329930365 (2) Septic shock Current Visit: Yes Status: Acute Code(s): A41.9 - SEPSIS, UNSPECIFIED ORGANISM; R65.21 - SEVERE SEPSIS WITH SEPTIC SHOCK SNOMED Code(s): 21292368 (3) Urinary tract infection Current Visit: Yes Status: Acute Code(s): N39.0 - URINARY TRACT INFECTION, SITE NOT SPECIFIED SNOMED Code(s): 11125190 (4) Bacteremia Current Visit: Yes Status: Acute Code(s): R78.81 - BACTEREMIA SNOMED Code(s): 4672701 (5) Vertebral osteomyelitis Current Visit: Yes Status: Acute Code(s): M46.20 - OSTEOMYELITIS OF VERTEBRA, SITE UNSPECIFIED SNOMED Code(s): 690968586 Plan: 1patient presented hospital with sepsis in this patient who did have fever tachycardia tachypnea hypotension elevated white count meeting criteria for SIRS source is likely urinary as the patient has significantly positive UA plus minus infected left heel pressure ulcer with a previous history of MRSA infection to the left heel 2-sulfa allergy 3-blood cultures currently growing MRSA left heel culture currently growing MRSA's Proteus and Pseudomonas 4patient also have a destructive changes at C3-C4 with a question of possible discitis/osteomyelitis patient is concerned to be high surgical risk for surgery orthopedics is on standby 4-patient is being treated with daptomycin and cefepime Daughter at the bedside multiple question answered Dictation was produced using dragon dictation software. please excuse any grammatical, word or spelling errors. Time with Patient: Less than 30
[2024-11-20 16:17] LABS: Glucose,Whole Blood 306 mg/dL (70-110)
[2024-11-20] MEDS: HYDROmorphone 0.5 MG/0.5 ML SYRINGE IVP PRN (18:21)
[2024-11-20 20:57] LABS: Glucose,Whole Blood 285 mg/dL (70-110)
[2024-11-20] MEDS: HYDROcodone/APAP 5-325MG 1 EACH TAB PO PRN (21:49)
[2024-11-21 05:37] LABS: Basophils # (A) 0.06 10*3/uL (0.00-0.10); Basophils % (A) 0.5 %; Eosinophils # (A) 0.19 10*3/uL (0.04-0.35); Eosinophils % (A) 1.7 %; HCT 29.5 % (37.2-46.3); HGB 9.0 g/dL (12.0-15.0); Lymphocytes # (A) 1.42 10*3/uL (0.90-5.00); Lymphocytes % (A) 12.9 %; MCH 26.8 pg (27.0-32.0); MCHC 30.5 g/dL (32.0-37.0); MCV 87.8 fL (80.0-97.0); Monocytes # (A) 0.93 10*3/uL (0.20-1.00); Monocytes % (A) 8.4 %; Neutrophils # (A) 8.29 10*3/uL (1.80-7.70); Neutrophils % (A) 75.2 %; Platelet Count 428 10*3/uL (140-440); RBC 3.36 10*6/uL (4.10-5.20); RDW 15.9 % (11.5-14.5); WBC 11.03 10*3/uL (4.50-10.00)
[2024-11-21 06:02] LABS: African American GFR (CKD) 46 (>60 ml/min/1.73 sqM); Anion Gap 9 mmol/L; Blood Urea Nitrogen 78 mg/dL (7-17); Calcium 9.1 mg/dL (8.4-10.2); Carbon Dioxide 21 mmol/L (22-30); Chloride 107 mmol/L (98-107); Glucose 174 mg/dL (74-99); Non-African American GFR(CKD) 40 (>60 ml/min/1.73 sqM); Potassium 4.4 mmol/L (3.5-5.1); Sodium 137 mmol/L (137-145)
[2024-11-21 07:00] LABS: Glucose,Whole Blood 195 mg/dL (70-110)
--- NOTE | 2024-11-21 07:23 | XR ---
EXAMINATION TYPE: XR chest 1V portable DATE OF EXAM: 11/21/2024 5:15 AM COMPARISON: Chest radiograph from one day prior. TECHNIQUE: XR chest 1V portable Portable AP radiograph of the chest. CLINICAL INDICATION:Female, 84 years old with history of chf; FINDINGS: Lungs/Pleura: Trace right pleural effusion with right basilar patchy consolidative opacities. No pneu mothorax. Pulmonary vascularity: Subtle pulmonary vascular congestion suggested. Heart/mediastinum: Cardiomediastinal silhouette is enlarged and stable. Atherosclerotic calcificatio ns are seen in the aorta. Three lead cardiac conduction device overlying the left hemithorax with raegan d tips projecting over the right ventricle, right atrium and coronary sinus. Musculoskeletal: No acute osseous pathology. Midline sternotomy wires are noted and stable. IMPRESSION: Similar, Cardiomegaly with trace right pleural effusion and right basilar consolidative opacity. Subt le suggested pulmonary vascular congestion. Correlate for CHF exacerbation. [facility], , 11/21/2024 7:21 AM
--- NOTE | 2024-11-21 10:32 | P.PN ---
Subjective Progress Note Date: 11/21/24 Principal diagnosis: Acute febrile illness with sepsis and septic shock, Patient is 84-year-old female sent in by EMS from her prison, [facility], yesterday after being noted to be confused, lethargic, with low blood pressures. She was tachycardic with a temperature of 100.8 F. Concerns for sepsis. On arrival, she was hypotensive, fluid resuscitated with a total of 3 L crystalloid fluid. Norepinephrine was started as the blood pressure did not respond to fluid alone. Started on a combination of cefepime and vancomycin for broad- spectrum antibiotic coverage. Serial troponins were elevated, and patient was also diagnosed with acute non-ST elevation CT and started on IV heparin per protocol. 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 Of note, had a recent hospitalization back in July, for sepsis and CHF exacerbation. MRSA was isolated in her blood. SILVIANO done on 08/10/2024 did not show any vegetation. There was a severely reduced left ventricular ejection fraction of 30 to 35%, moderate mitral and tricuspid regurgitation with severe pulmonary hypertension. Mild to moderate aortic regurgitation. Treated with IV antibiotics. She also has history of ischemic cardiomyopathy, biventricular AICD, previous CABG, hypertension, hyperlipidemia, diabetes mellitus type 2, dementia, among other debilitating comorbidities. Workup in the emergency department including chest x-ray showing stable pulmonary vascular congestion with scattered infiltrates and small effusions suggestive of congestive heart failure. X-ray left foot with soft tissue wound over the heel without evidence of osseous erosion. Urinalysis was positive for pyuria and bacteria. CBC with a WBC count of 13.4, hemoglobin 9.3, platelets 439. CMP: Sodium 132, potassium 5.7, chloride 98, serum bicarb 21, BUN 76, creatinine 1.35, glucose 219. LFTs mildly elevated. Troponins elevated at 1.11, 2.2, 4.3, and 5.5 respectively. EKG showing a ventricularly paced rhythm. IV heparin continues per protocol. VBG with a pCO2 of 39 and pH of 7.38. Viral 4 Plex negative for influenza A/B, RSV, COVID of note, on her p revious hospitalization in July was positive for RSV. Currently, patient is being observed in the intensive care unit. She is currently awake and alert. She is oriented to self and place. Does not recall events prior to coming to the hospital. I am told this could be her baseline. She does have dementia and [facility]. Denies any chest pain. IV heparin continues per protocol. Blood pressure is being supported with norepinephrine which is infusing at 0.04 mcg/kg/min. Previously febrile with a Tmax of 101.9 F, and this is down and currently normothermic. Urinary catheter was placed which is draining clear urine. Normal saline to be started at 50 mL/h. pancultures are pending. Patient previously complaining of neck pain, however, denies this to me. She has a CT of the neck and chest ordered. No respiratory distress or stridor. On room air. Patient was seen today on 11/19/2024, remains in the ICU, patient is still requiring norepinephrine at 0.13 mcg/kg/min, she received significant amount of fluid boluses, patient is known to have history of severe LV dysfunction and history of congestive heart failure, hence we cut back on her fluids, patient was not making significant urine output yesterday in spite of all the fluids given and in spite of Lasix IV push, hence I recommended patient going on dobutamine at 2.5 mcg/kg/min, I recommended a Lasix drip at 20 mg/h. Patient did quite well with the infusion of Lasix and dobutamine. Her urine output has been excellent while on Lasix, she is on 2 L nasal cannula, does not seem to be uncomfortable. For her non-ST elevation myocardial infarction, patient remains on heparin, she had abnormal troponins, patient is again noted to have history of severe ischemic cardiomyopathy and previous AICD placement. Considering the overall picture, at this point the patient is an absolute contraindication to any cervical surgery. WBC count is 14.3 hemoglobin 9.1 electrolytes are normal renal profile is normal BUN is 95 creatinine 1.88 bicarb is 14. Patient will be placed on oral bicarb for now. Patient was seen today on 11/20/2024, patient remains in the ICU, remains unstable, still requiring norepinephrine at 0.05 mcg/kg/min she was on Dobutrex at 5 mcg/kg/min however she developed tachyarrhythmia and had to go down to 2.5 mg/kg/min, continues to have now frequent PVCs, I recommended stopping the dobutamine altogether. Patient is still on Lasix at 20 mg/h and I cut it down to 10 mg/h. Her cultures have all been reviewed, patient had positive blood cultures on 11/17 showing MRSA in the blood, her wound cultures showed Proteus mirabilis Pseudomonas Klebsiella and corynebacterium stratum her left leg wound culture showed MRSA and Proteus mirabilis. So obviously the patient is a great set up for sepsis and septic shock as she presented with. Not to mention the patient has severe cardiomyopathy and LV dysfunction. She had previous AICD placement. Still believe the patient has absolute contraindication to surgery, and I will not clear the patient for surgery at this point in time as it is extremely risky and possibly fatal. Patient has multiple comorbidities which makes surgery at this point and absolute current indication remember patient is not hemodynamically stable and her presentation was a presentation of sepsis and septic shock. WBC count is 12.1 hemoglobin 9.1 electrolytes are normal BUN is 87 creatinine 1.40 PTT is 50. Blood sugar is 222. Chest x-ray yesterday showed cardiomegaly, right pleural effusion, right basilar consolidation, and pulmonary vascular congestion consistent with congestive heart failure. Patient was seen today on 11/21/2024, patient remains in the ICU, still requiring norepinephrine at 0.07 mcg/kg/min she is off dobutamine yesterday, remains on Lasix drip at 10 mg/h. Urine output is fair, she had a negative balance of 500 cc over the last 24 hours. Patient remains on daptomycin and cefepime, remains on heparin, this is being addressed by cardiology on the case. May have to consider oral anticoagulation therapy. Patient herself is not in any distress, she is not symptomatic, her WBC count is 11 hemoglobin 9 her PTT is therapeutic 56 electrolytes are normal BUN is 78 creatinine is lower today 1.25. Chest x- ray continues to show evidence of pulmonary edema and cardiomegaly. Patient is only on 2 L nasal cannula and O2 saturation ranging between 96 to 100% Objective - Vital Signs Vital signs: Vital Signs Temp 97.7 F 11/21/24 08:06 Pulse 96 11/21/24 08:06 Resp 24 11/21/24 08:06 BP 105/52 11/21/24 08:06 Pulse Ox 96 11/21/24 08:20 FiO2 Intake & Output 11/20/24 11/21/2425 18:59 06:59 18:59 Intake Total 1001.030 565.773 192.804 Output Total 1385 700 185 Balance -383.970 -134.227 7.804 Weight 71.7 kg Intake: IV 120 120 20 Sodium Chloride 0.9% 1, 120 120 20 000 ml @ 10 mls/hr IV . Q24H [facility] Rx#:[id number] Intake, IV Titration 161.030 445.773 172.804 Amount Cefepime 1 gm In Sodium 50 50 Chloride 0.9% 50 ml @ 12. 5 mls/hr IVPB Q12H [facility] Rx #:[id number] DAPTOmycin 450 mg In 50 Sodium Chloride 0.9% 50 ml @ 100 mls/hr IVPB Q48H [facility] Rx#:[id number] Furosemide 100 mg In 100 100 Sodium Chloride 0.9% 90 ml @ 10 MG/HR 10 mls/hr IV .Q10H [facility] Rx#: [id number] Heparin Sod,Pork in 0.45% 250 NaCl 25,000 unit In 0.45 % NaCl 1 250ml.bag @ 12 UNITS/KG/HR 7.62 mls/hr IV .Q24H [facility] Rx#: [id number] Norepinephrine 8 mg In 61.030 45.773 72.804 Sodium Chloride 0.9% 250 ml @ 0.03 MCG/KG/MIN 3. 686 mls/hr IV .Q24H [facility] Rx#:[id number] Oral 720 Output: Urine 1385 700 185 Other: Voiding Method Indwelling Catheter Indwelling Catheter Indwelling Catheter - Exam GENERAL EXAM: Revealed 84-year-old female in no distress on 2 L nasal cannula HEAD: Normocephalic and atraumatic EYES: Normal reaction of pupils, equal size. NOSE: Clear with pink turbinates. THROAT: No erythema or exudates. NECK: No masses, no JVD. CHEST: No chest wall deformity. Left chest implanted AICD/pacemaker generator. Remote appearing sternotomy incision. LUNGS: Crackles in the bases no rhonchi no wheezes CVS: S1 and S2 normal with no audible murmur, regular rhythm. No extra heart sounds ABDOMEN: No hepatosplenomegaly, active bowel sounds, no guarding or rigidity. SKIN: Multiple skin lesions as noted below CENTRAL NERVOUS SYSTEM: No focal deficits, tone is normal in all 4 extremities. EXTREMITIES: There is mild nonpitting lower extremity edema bilaterally. Left heel wound dressed with new dressing. No clubbing or cyanosis. Peripheral pulses are intact. - Labs CBC & Chem 7: 11/21/24 05:17 11/21/24 05:17 Labs: Abnormal Lab Results - Last 24 Hours (Table) 11/20/24 11/20/24 11/20/24 Range/Units 11:37 16:15 20:56 WBC (4.50-10.00) 10*3/uL RBC (4.10-5.20) 10*6/uL Hgb (12.0-15.0) g/dL Hct (37.2-46.3) % MCH (27.0-32.0) pg MCHC (32.0-37.0) g/dL Immature Gran # (0.00-0.04) 10*3/uL Neutrophils # (1.80-7.70) 10*3/uL APTT (22.0-30.0) sec Carbon Dioxide (22-30) mmol/L BUN (7-17) mg/dL Creatinine (0.52-1.04) mg/dL Glucose (74-99) mg/dL POC Glucose (mg/dL) 222 H 306 H 285 H (70-110) mg/dL 11/21/24 11/21/24 11/21/24 Range/Units 05:17 05:17 05:17 WBC 11.03 H (4.50-10.00) 10*3/uL RBC 3.36 L (4.10-5.20) 10*6/uL Hgb 9.0 L (12.0-15.0) g/dL Hct 29.5 L (37.2-46.3) % MCH 26.8 L (27.0-32.0) pg MCHC 30.5 L (32.0-37.0) g/dL Immature Gran # 0.14 H (0.00-0.04) 10*3/uL Neutrophils # 8.29 H (1.80-7.70) 10*3/uL APTT 56.1 H (22.0-30.0) sec Carbon Dioxide 21 L (22-30) mmol/L BUN 78 H (7-17) mg/dL Creatinine 1.25 H (0.52-1.04) mg/dL Glucose 174 H (74-99) mg/dL POC Glucose (mg/dL) (70-110) mg/dL 11/21/24 Range/Units 06:59 WBC (4.50-10.00) 10*3/uL RBC (4.10-5.20) 10*6/uL Hgb (12.0-15.0) g/dL Hct (37.2-46.3) % MCH (27.0-32.0) pg MCHC (32.0-37.0) g/dL Immature Gran # (0.00-0.04) 10*3/uL Neutrophils # (1.80-7.70) 10*3/uL APTT (22.0-30.0) sec Carbon Dioxide (22-30) mmol/L BUN (7-17) mg/dL Creatinine (0.52-1.04) mg/dL Glucose (74-99) mg/dL POC Glucose (mg/dL) 195 H (70-110) mg/dL Microbiology - Last 24 Hours (Table) 11/17/24 08:30 Blood Culture Gram Stain - Final Blood Blood Culture - Final Methicillin resist S. aureus Molecular ID Assessment and Plan Assessment: Impression: Sepsis, septic shock, refractory to fluid resuscitation, currently requiring low-dose norepinephrine remains on norepinephrine being titrated. Acute febrile illness, with bacteremia noted on 11/17/2024, 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, Pseudomonas aeruginosa, Proteus MirabellisHistory of MRSA bacteremia, SILVIANO done on 08/10/2024 did not show any vegetation. There was a severely reduced left ventricular ejection fraction of 30 to 35%, moderate mitral and tricuspid regurgitation with severe pulmonary hypertension. Mild to moderate aortic regurgitation. Treated with IV vancomycin Acute non-ST elevation CT, currently on IV heparin per protocol Ischemic cardiomyopathy, required dobutamine at 2.5 mcg/kg/min which I have placed on hold today History of implanted AICD/pacemaker History of coronary artery disease with previous CABG History of hypertension History of hyperlipidemia Diabetes mellitus, type II Acute kidney injury, possibly secondary to hypotension/ATN slightly better today with dobutamine and Lasix drip which I cut down to 10 mg/h Hyperkalemia, secondary to above History of RSV tracheobronchitis July, Chronic normocytic, normochromic anemia Dementia, takes Aricept on outpatient basis Recommendation: Continue pressors, continue to titrate norepinephrine to mean arterial pressure above 60 Continue Lasix at 10 mg/h infusion Continue heparin, consider transitioning to oral anticoagulation therapy Continue antibiotics as per ID on the case Continue GI prophylaxis Continue sliding scale insulin Patient remains quite ill, and not quite ready to be transferred out of the ICU. Again no pulmonary clearance at this point for cervical surgery. Critical care time is 32 minutes Time with Patient: Greater than 30
[2024-11-21 11:30] LABS: Glucose,Whole Blood 219 mg/dL (70-110)
--- NOTE | 2024-11-21 13:53 | P.PN ---
Subjective Progress Note Date: 11/21/24 The patient is an 85-year-old female patient who is known to our service from before with a past medical history significant for CAD status post CABG as well as ischemic cardiomyopathy status post AICD and also hypertension and dyslipidemia and diabetes and multiple comorbid conditions including chronic a nemia. The patient is a resident at [facility]. She is somewhat poor historian. The patient was brought from the [facility] to the hospital because of low blood pressure associated with increasing in the shortness of breath and change in mental status. She was found to be hypoxic in the ER and she was admitted to the ICU and placed on oxygen. Also she was found to be hypotensive requiring norepinephrine to support her pressure. Also further evaluation was performed including troponin came to be abnormal. There is a concern about pulmonary embolism given the abnormal D-dimer and currently the patient is in process of having a CT scan of the chest. The EKG showed sinus with paced rhythm and also the patient is tachycardic and she is in mild hypoxic respiratory failure and mild respiratory distress. Hemodynamically she still unstable requiring small dose of norepinephrine. No symptoms of chest pain or chest discomfort beside the shortness of breath. The physical examination is remarkable for mild respiratory distress with regular rate and rhythm and distant heart sounds and soft systolic murmur and diminished breathing sounds bilaterally and mild bilateral lower extremities edema noted with the chest x-ray showed evidence of pulmonary vascular congestions. No NT proBNP was ordered. The troponin is definitely elevated and currently she is on heparin. She has resided at [facility] for 3 years. November 19, 2024 The patient was seen and evaluated this morning. She underwent an echo yesterday and that revealed severe cardiomyopathy with EF at 15%. She underwent a CT scan of the neck which showed osteomyelitis and she was seen by the surgical team with possible taking the patient to the OR. The patient is at very high risk at this stage given the severe cardiomyopathy and giving the ACS with elevated troponin on admission and giving the hypotension requiring norepinephrine and given the decompensated heart failure and currently she is on Lasix IV as well as dobutamine IV. Beside that the CT scan of the chest did not show any evidence of pulmonary embolism. The physical examination is remarkable for regular rhythm with heart rate in the 90s and systolic murmur at the right upper sternal border with diminished breathing sounds bilaterally and mild bilateral lower extremities edema. November 20, 2024 She awakens to voice. Answering some questions. She reports having pain in neck/shoulder. Dobutamine was discontinued, lasix decreased to 10mg. She remains on levophed. Family at bedside does not think she is back to baseline since July when she had pneumonia. November 21, 2024 Pt seen in ICU. Feels "a little better". She is still on levophed. WBC 11.03, Hgb 9.0, creat 1.25. No chest pain or pressure. Shortness of breath improved. PHYSICAL EXAMINATION: This is a 84-year-old female in no apparent distress at the time of my examination. HEENT: Head is atraumatic, normocephalic. Pupils are equal, round. Sclerae anicteric. Conjunctivae are clear. Mucous membranes of the mouth are moist. Neck is flexed forward in bed. There is no jugular venous distention. CHEST EXAMINATION: Lungs are diminished. On NC O2. No chest wall tenderness is noted on palpation or with deep breathing. HEART EXAMINATION: Heart regular rate and rhythm. S1, S2 heard. No gallops or rub. Distant heart sounds and soft systolic murmur ABDOMEN: Soft, nontender. Bowel sounds are heard. EXTREMITIES: 2+ peripheral pulses with no evidence of peripheral edema and no calf tenderness noted. NEUROLOGIC EXAMINATION: Patient awakens to voice, alert and oriented x3. Assessment Change in mental status which has improved Low blood pressure requiring norepinephrine Mild respiratory distress Abnormal D-dimer with no evidence of PE Abnormal troponin CAD status post CABG Ischemic cardiomyopathy, EF 10-15% Status post AICD Anuria Multiple comorbid conditions MRSA infection, multiple locations Plan OK to discontinue heparin drip. Continue aspirin. Consider adding small dose of beta-maryam and the rest of the cardiomyopathy medications once the blood pressure permitting Try to wean norepinephrine as able The patient is at high risk for any surgical intervention at this point, long discussion with family regarding risks vs benefits. Would not recommend surgery at this time. Make consider further assessment when hemodydamically stable. Will follow. I am dictating on behalf of Dr. Samir Landaverde's history/physical and assessment/plan. Objective - Vital Signs Vital signs: Vital Signs Temp 97.7 F 11/21/24 08:06 Pulse 96 11/21/24 08:06 Resp 24 11/21/24 08:06 BP 105/52 11/21/24 08:06 Pulse Ox 96 11/21/24 08:20 FiO2 Intake & Output 11/20/24 11/21/24 11/21/24 18:59 06:59 18:59 Intake Total 1001.030 565.773 751.681 Output Total 1385 700 735 Balance -383.970 -134.227 16.681 Weight 71.7 kg Intake: IV 120 120 70 Sodium Chloride 0.9% 1, 120 120 70 000 ml @ 10 mls/hr IV . Q24H [facility] Rx#:[id number] Intake, IV Titration 161.030 445.773 201.681 Amount Cefepime 1 gm In Sodium 50 50 Chloride 0.9% 50 ml @ 12. 5 mls/hr IVPB Q12H [facility] Rx #:[id number] DAPTOmycin 450 mg In 50 Sodium Chloride 0.9% 50 ml @ 100 mls/hr IVPB Q48H [facility] Rx#:[id number] Furosemide 100 mg In 100 100 Sodium Chloride 0.9% 90 ml @ 10 MG/HR 10 mls/hr IV .Q10H [facility] Rx#: [id number] Heparin Sod,Pork in 0.45% 250 NaCl 25,000 unit In 0.45 % NaCl 1 250ml.bag @ 12 UNITS/KG/HR 7.62 mls/hr IV .Q24H [facility] Rx#: [id number] Norepinephrine 8 mg In 61.030 45.773 101.681 Sodium Chloride 0.9% 250 ml @ 0.03 MCG/KG/MIN 3. 686 mls/hr IV .Q24H [facility] Rx#:[id number] Oral 720 480 Output: Urine 1385 700 735 Other: Voiding Method Indwelling Catheter Indwelling Catheter Indwelling Catheter - Labs CBC & Chem 7: 11/21/24 05:17 11/21/24 05:17 Labs: Abnormal Lab Results - Last 24 Hours (Table) 11/20/24 11/20/24 11/21/24 Range/Units 16:15 20:56 05:17 WBC (4.50-10.00) 10*3/uL RBC (4.10-5.20) 10*6/uL Hgb (12.0-15.0) g/dL Hct (37.2-46.3) % MCH (27.0-32.0) pg MCHC (32.0-37.0) g/dL Immature Gran # (0.00-0.04) 10*3/uL Neutrophils # (1.80-7.70) 10*3/uL APTT 56.1 H (22.0-30.0) sec Carbon Dioxide (22-30) mmol/L BUN (7-17) mg/dL Creatinine (0.52-1.04) mg/dL Glucose (74-99) mg/dL POC Glucose (mg/dL) 306 H 285 H (70-110) mg/dL 11/21/24 11/21/24 11/21/24 Range/Units 05:17 05:17 06:59 WBC 11.03 H (4.50-10.00) 10*3/uL RBC 3.36 L (4.10-5.20) 10*6/uL Hgb 9.0 L (12.0-15.0) g/dL Hct 29.5 L (37.2-46.3) % MCH 26.8 L (27.0-32.0) pg MCHC 30.5 L (32.0-37.0) g/dL Immature Gran # 0.14 H (0.00-0.04) 10*3/uL Neutrophils # 8.29 H (1.80-7.70) 10*3/uL APTT (22.0-30.0) sec Carbon Dioxide 21 L (22-30) mmol/L BUN 78 H (7-17) mg/dL Creatinine 1.25 H (0.52-1.04) mg/dL Glucose 174 H (74-99) mg/dL POC Glucose (mg/dL) 195 H (70-110) mg/dL 11/21/24 Range/Units 11:29 WBC (4.50-10.00) 10*3/uL RBC (4.10-5.20) 10*6/uL Hgb (12.0-15.0) g/dL Hct (37.2-46.3) % MCH (27.0-32.0) pg MCHC (32.0-37.0) g/dL Immature Gran # (0.00-0.04) 10*3/uL Neutrophils # (1.80-7.70) 10*3/uL APTT (22.0-30.0) sec Carbon Dioxide (22-30) mmol/L BUN (7-17) mg/dL Creatinine (0.52-1.04) mg/dL Glucose (74-99) mg/dL POC Glucose (mg/dL) 219 H (70-110) mg/dL Microbiology - Last 24 Hours (Table) 11/17/24 08:30 Blood Culture Gram Stain - Final Blood Blood Culture - Final Methicillin resist S. aureus Molecular ID
[2024-11-21 16:17] LABS: Glucose,Whole Blood 322 mg/dL (70-110)
--- NOTE | 2024-11-21 16:19 | P.PN ---
Subjective Progress Note Date: 11/21/24 Patient is 84-year-old female sent in by EMS from her longterm, [facility], after being noted to be confused, lethargic, with low blood pressures. She was tachycardic with a temperature of 100.8 F. Concerns for sepsis. On arrival, she was hypotensive, fluid resuscitated with a total of 3 L crystalloid fluid. Norepinephrine was started as the blood pressure did not respond to fluid alone. Started on a combination of cefepime and vancomycin for broad-spectrum antibiotic coverage. Serial troponins were elevated, and patient was also diagnosed with acute non-ST elevation CT and started on IV heparin per protocol. 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 Of note, had a recent hospitalization back in July, for sepsis and CHF exacerbation. MRSA was isolated in her blood. SILVIANO done on 08/10/2024 did not show any vegetation. There was a severely reduced left ventricular ejection fraction of 30 to 35%, moderate mitral and tricuspid regurgitation with severe pulmonary hypertension. Mild to moderate aortic regurgitation. Treated with IV antibiotics. She also has history of ischemic cardiomyopathy, biventricular AICD, previous CABG, hypertension, hyperlipidemia, diabetes mellitus type 2, dementia, among other debilitating comorbidities. Workup in the emergency department including chest x-ray showing stable pulmonary vascular congestion with scattered infiltrates and small effusions suggestive of congestive heart failure. X-ray left foot with soft tissue wound over the heel without evidence of osseous erosion. Urinalysis was positive for pyuria and bacteria. CBC with a WBC count of 13.4, hemoglobin 9.3, platelets 439. CMP: Sodium 132, potassium 5.7, chloride 98, serum bicarb 21, BUN 76, creatinine 1.35, glucose 219. LFTs mildly elevated. Troponins elevated at 1.11, 2.2, 4.3, and 5.5 respectively. EKG showing a ventricularly paced rhythm. IV heparin continues per protocol. VBG with a pCO2 of 39 and pH of 7.38. Viral 4 Plex negative for influenza A/B, RSV, COVID of note, on her previous hospitalization in July was positive for RSV. Currently, patient is being observed in the intensive care unit. She is currently awake and alert. She is oriented to self and place. Does not recall events prior to coming to the hospital. I am told this could be her baseline. She does have dementia and takes Aricept at the longterm. Denies any chest pain. IV heparin continues per protocol. Blood pressure is being supported with norepinephrine which is infusing at 0.04 mcg/kg/min. Previously febrile with a Tmax of 101.9 F, and this is down and currently normothermic. Urinary catheter was placed which is draining clear urine. Normal saline to be started at 50 mL/h. pancultures are pending. Patient previously complaining of neck pain, however, denies this to me. She has a CT of the neck and chest ordered. No respiratory distress or stridor 11/21. Patient seen and examined.Labs reviewed showing WBC 9.03, hemoglobin 9, platelet count 428, sodium 137, potassium 4.4, BUN 78, creatinine 1.25. Currently on IV Levophed which is being weaned down. Currently on IV cefepime, daptomycin and Lasix drip. Complaining of leg pain. REVIEW OF SYSTEMS: CONSTITUTIONAL: No fever, no malaise,. CARDIOVASCULAR: No chest pain, no palpitations, no syncope. PULMONARY: No shortness of breath, no cough, GASTROINTESTINAL: No diarrhea, no nausea, no vomiting, no abdominal pain. NEUROLOGICAL: No headaches, no weakness, PHYSICAL EXAMINATION: GENERAL: The patient is alert and oriented x3, ill looking HEENT: Pupils are round and equally reacting to light. EOMI. No scleral icterus. No conjunctival pallor. Normocephalic, atraumatic. No pharyngeal erythema. No thyromegaly. CARDIOVASCULAR: S1 and S2 present. No murmurs, rubs, or gallops. PULMONARY: Diminished breath sounds at the bases, no wheezing or crackles. ABDOMEN: Soft, nontender, nondistended, normoactive bowel sounds. No palpable organomegaly. MUSCULOSKELETAL: No joint swelling or deformity. EXTREMITIES: No cyanosis, clubbing, or pedal edema. NEUROLOGICAL: Gross neurological examination did not reveal any focal deficits. SKIN: No rashes. Assessment and plan Septic shock Acute febrile illness, with bacteremia noted on 11/17/2024, 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, Pseudomonas aeruginosa, Proteus MirabellisHistory of MRSA bacteremia, SILVIANO done on 08/10/2024 did not show any vegetation Acute non-ST elevation CT Ischemic cardiomyopathy History of implanted AICD/pacemaker History of coronary artery disease with previous CABG History of hypertension History of hyperlipidemia Diabetes mellitus, type II Acute kidney injury Hyperkalemia History of RSV tracheobronchitis July, Chronic normocytic, normochromic anemia Dementia Monitor vital signs Monitor CBC Monitor CMP Continue telemetry monitoring Follow-up on blood culture Strict I's and O's, daily weights Continue IV Lasix drip Currently on Levophed Currently on daptomycin and cefepime ID following Cardiology following Critical care following Labs and medication were reviewed.. Continue same treatment. Continue with symptomatic treatment. Resume home medication. Monitor labs and vitals. DVT and GI prophylaxis. Further recommendations as per clinical course of the patient Dictation was produced using [employer] dictation software. please excuse any grammatical, word or spelling errors. Objective - Vital Signs Vital signs: Vital Signs Temp 98.1 F 11/21/24 12:00 Pulse 89 11/21/24 15:00 Resp 21 11/21/24 15:00 BP 77/53 11/21/24 15:00 Pulse Ox 98 11/21/24 15:00 FiO2 Intake & Output 11/20/24 11/21/24 11/21/24 18:59 06:59 18:59 Intake Total 1001.030 238.388 7167.681 Output Total 1385 700 860 Balance -383.970 -134.227 151.681 Weight 71.7 kg Intake: IV 120 120 90 Sodium Chloride 0.9% 1, 120 120 90 000 ml @ 10 mls/hr IV . Q24H [facility] Rx#:[id number] Intake, IV Titration 161.030 445.773 201.681 Amount Cefepime 1 gm In Sodium 50 50 Chloride 0.9% 50 ml @ 12. 5 mls/hr IVPB Q12H [facility] Rx #:[id number] DAPTOmycin 450 mg In 50 Sodium Chloride 0.9% 50 ml @ 100 mls/hr IVPB Q48H [facility] Rx#:[id number] Furosemide 100 mg In 100 100 Sodium Chloride 0.9% 90 ml @ 10 MG/HR 10 mls/hr IV .Q10H [facility] Rx#: [id number] Heparin Sod,Pork in 0.45% 250 NaCl 25,000 unit In 0.45 % NaCl 1 250ml.bag @ 12 UNITS/KG/HR 7.62 mls/hr IV .Q24H [facility] Rx#: [id number] Norepinephrine 8 mg In 61.030 45.773 101.681 Sodium Chloride 0.9% 250 ml @ 0.03 MCG/KG/MIN 3. 686 mls/hr IV .Q24H [facility] Rx#:[id number] Oral 720 720 Output: Urine 1385 700 860 Other: Voiding Method Indwelling Catheter Indwelling Catheter Indwelling Catheter - Labs CBC & Chem 7: 11/21/24 05:17 11/21/24 05:17 Labs: Abnormal Lab Results - Last 24 Hours (Table) 11/20/24 11/20/24 11/21/24 Range/Units 16:15 20:56 05:17 WBC (4.50-10.00) 10*3/uL RBC (4.10-5.20) 10*6/uL Hgb (12.0-15.0) g/dL Hct (37.2-46.3) % MCH (27.0-32.0) pg MCHC (32.0-37.0) g/dL Immature Gran # (0.00-0.04) 10*3/uL Neutrophils # (1.80-7.70) 10*3/uL APTT 56.1 H (22.0-30.0) sec Carbon Dioxide (22-30) mmol/L BUN (7-17) mg/dL Creatinine (0.52-1.04) mg/dL Glucose (74-99) mg/dL POC Glucose (mg/dL) 306 H 285 H (70-110) mg/dL 11/21/24 11/21/24 11/21/24 Range/Units 05:17 05:17 06:59 WBC 11.03 H (4.50-10.00) 10*3/uL RBC 3.36 L (4.10-5.20) 10*6/uL Hgb 9.0 L (12.0-15.0) g/dL Hct 29.5 L (37.2-46.3) % MCH 26.8 L (27.0-32.0) pg MCHC 30.5 L (32.0-37.0) g/dL Immature Gran # 0.14 H (0.00-0.04) 10*3/uL Neutrophils # 8.29 H (1.80-7.70) 10*3/uL APTT (22.0-30.0) sec Carbon Dioxide 21 L (22-30) mmol/L BUN 78 H (7-17) mg/dL Creatinine 1.25 H (0.52-1.04) mg/dL Glucose 174 H (74-99) mg/dL POC Glucose (mg/dL) 195 H (70-110) mg/dL 11/21/24 Range/Units 11:29 WBC (4.50-10.00) 10*3/uL RBC (4.10-5.20) 10*6/uL Hgb (12.0-15.0) g/dL Hct (37.2-46.3) % MCH (27.0-32.0) pg MCHC (32.0-37.0) g/dL Immature Gran # (0.00-0.04) 10*3/uL Neutrophils # (1.80-7.70) 10*3/uL APTT (22.0-30.0) sec Carbon Dioxide (22-30) mmol/L BUN (7-17) mg/dL Creatinine (0.52-1.04) mg/dL Glucose (74-99) mg/dL POC Glucose (mg/dL) 219 H (70-110) mg/dL Microbiology - Last 24 Hours (Table) 11/17/24 08:30 Blood Culture Gram Stain - Final Blood Blood Culture - Final Methicillin resist S. aureus Molecular ID
--- NOTE | 2024-11-21 16:22 | P.PN ---
Subjective Progress Note Date: 11/21/24 Principal diagnosis: Reason for follow-up is left heel infected pressure ulcer and bacteremia Patient is a 84-year-old female with a past medical history significant for Coronary Artery Disease (CAD), Heart Failure, Dementia, Diabetes Mellitus, Hypertension, Myocardial Infarction (NH), Pneumonia, Vascular Disorder, history of left heel infected pressure ulcer and long-term resident patient has been sent to the from the long-term as the patient was having mental status changes fever and elevated white count. On today's evaluation that is 11/22/2023, patient did have a temperature of 98 F this morning and denies having any chills, patient is on 2 L nasal oxygen and breathing comfortably no chest pain or cough, the patient did not have any nausea vomiting abdominal pain or any diarrhea. Patient white count is down to 11.03, creatinine is 1.25 blood culture repeat currently pending Objective - Vital Signs Vital signs: Vital Signs Temp 98.1 F 11/21/24 12:00 Pulse 89 11/21/24 15:00 Resp 21 11/21/24 15:00 BP 77/53 11/21/24 15:00 Pulse Ox 98 11/21/24 15:00 FiO2 Intake & Output 11/20/24 11/21/24 11/21/24 18:59 06:59 18:59 Intake Total 1001.030 171.504 0097.681 Output Total 1385 700 860 Balance -383.970 -134.227 151.681 Weight 71.7 kg Intake: IV 120 120 90 Sodium Chloride 0.9% 1, 120 120 90 000 ml @ 10 mls/hr IV . Q24H [facility] Rx#:[id number] Intake, IV Titration 161.030 445.773 201.681 Amount Cefepime 1 gm In Sodium 50 50 Chloride 0.9% 50 ml @ 12. 5 mls/hr IVPB Q12H [facility] Rx #:[id number] DAPTOmycin 450 mg In 50 Sodium Chloride 0.9% 50 ml @ 100 mls/hr IVPB Q48H [facility] Rx#:[id number] Furosemide 100 mg In 100 100 Sodium Chloride 0.9% 90 ml @ 10 MG/HR 10 mls/hr IV .Q10H [facility] Rx#: [id number] Heparin Sod,Pork in 0.45% 250 NaCl 25,000 unit In 0.45 % NaCl 1 250ml.bag @ 12 UNITS/KG/HR 7.62 mls/hr IV .Q24H [facility] Rx#: [id number] Norepinephrine 8 mg In 61.030 45.773 101.681 Sodium Chloride 0.9% 250 ml @ 0.03 MCG/KG/MIN 3. 686 mls/hr IV .Q24H [facility] Rx#:[id number] Oral 720 720 Output: Urine 1385 700 860 Other: Voiding Method Indwelling Catheter Indwelling Catheter Indwelling Catheter - Exam GENERAL DESCRIPTION: An elderly female lying in bed in no distress RESPIRATORY SYSTEM: Unlabored breathing , decreased breath sounds at bases HEART: S1 S2 regular rate and rhythm , ABDOMEN: Soft , no tenderness EXTREMITIES: Left wound is currently dressed - Labs CBC & Chem 7: 11/21/24 05:17 11/21/24 05:17 Labs: Abnormal Lab Results - Last 24 Hours (Table) 11/20/24 11/21/24 11/21/24 Range/Units 20:56 05:17 05:17 WBC 11.03 H (4.50-10.00) 10*3/uL RBC 3.36 L (4.10-5.20) 10*6/uL Hgb 9.0 L (12.0-15.0) g/dL Hct 29.5 L (37.2-46.3) % MCH 26.8 L (27.0-32.0) pg MCHC 30.5 L (32.0-37.0) g/dL Immature Gran # 0.14 H (0.00-0.04) 10*3/uL Neutrophils # 8.29 H (1.80-7.70) 10*3/uL APTT 56.1 H (22.0-30.0) sec Carbon Dioxide (22-30) mmol/L BUN (7-17) mg/dL Creatinine (0.52-1.04) mg/dL Glucose (74-99) mg/dL POC Glucose (mg/dL) 285 H (70-110) mg/dL 11/21/24 11/21/24 11/21/24 Range/Units 05:17 06:59 11:29 WBC (4.50-10.00) 10*3/uL RBC (4.10-5.20) 10*6/uL Hgb (12.0-15.0) g/dL Hct (37.2-46.3) % MCH (27.0-32.0) pg MCHC (32.0-37.0) g/dL Immature Gran # (0.00-0.04) 10*3/uL Neutrophils # (1.80-7.70) 10*3/uL APTT (22.0-30.0) sec Carbon Dioxide 21 L (22-30) mmol/L BUN 78 H (7-17) mg/dL Creatinine 1.25 H (0.52-1.04) mg/dL Glucose 174 H (74-99) mg/dL POC Glucose (mg/dL) 195 H 219 H (70-110) mg/dL 11/21/24 Range/Units 16:14 WBC (4.50-10.00) 10*3/uL RBC (4.10-5.20) 10*6/uL Hgb (12.0-15.0) g/dL Hct (37.2-46.3) % MCH (27.0-32.0) pg MCHC (32.0-37.0) g/dL Immature Gran # (0.00-0.04) 10*3/uL Neutrophils # (1.80-7.70) 10*3/uL APTT (22.0-30.0) sec Carbon Dioxide (22-30) mmol/L BUN (7-17) mg/dL Creatinine (0.52-1.04) mg/dL Glucose (74-99) mg/dL POC Glucose (mg/dL) 322 H (70-110) mg/dL Microbiology - Last 24 Hours (Table) 11/17/24 08:30 Blood Culture Gram Stain - Final Blood Blood Culture - Final Methicillin resist S. aureus Molecular ID Assessment and Plan (1) Non healing left heel wound Current Visit: Yes Status: Acute Code(s): S91.302A - UNSPECIFIED OPEN WOUND, LEFT FOOT, INITIAL ENCOUNTER SNOMED Code(s): 653594293 (2) Septic shock Current Visit: Yes Status: Acute Code(s): A41.9 - SEPSIS, UNSPECIFIED ORGANISM; R65.21 - SEVERE SEPSIS WITH SEPTIC SHOCK SNOMED Code(s): 93984567 (3) Urinary tract infection Current Visit: Yes Status: Acute Code(s): N39.0 - URINARY TRACT INFECTION, SITE NOT SPECIFIED SNOMED Code(s): 53265920 (4) Bacteremia Current Visit: Yes Status: Acute Code(s): R78.81 - BACTEREMIA SNOMED Code(s): 1532095 (5) Vertebral osteomyelitis Current Visit: Yes Status: Acute Code(s): M46.20 - OSTEOMYELITIS OF VERTEBRA, SITE UNSPECIFIED SNOMED Code(s): 150786457 Plan: 1patient presented hospital with sepsis in this patient who did have fever tachycardia tachypnea hypotension elevated white count meeting criteria for SIRS source is likely urinary as the patient has significantly positive UA plus minus infected left heel pressure ulcer with a previous history of MRSA infection to the left heel 2-sulfa allergy 3-blood cultures currently growing MRSA left heel culture currently growing MR VALENTE's Proteus and Pseudomonas 4patient also have a destructive changes at C3-C4 with a question of possible discitis/osteomyelitis patient is concerned to be high surgical risk for surgery orthopedics is on standby 4-patient is afebrile patient white count is trending down repeat blood culture currently pending patient to be treated with daptomycin and cefepime and monitor clinical course closely Daughter at the bedside multiple question answered Dictation was produced using [employer] dictation software. please excuse any grammatical, word or spelling errors.
[2024-11-21 20:49] LABS: Glucose,Whole Blood 418 mg/dL (70-110)
[2024-11-21] MEDS ORDERED: INSULIN GLARGINE (LANTUS) 100 UNIT/ML SYR SQ SCH (21:00)
[2024-11-21] MEDS: INSULIN LISPRO (HumaLOG) 100 UNIT/ML 10 mL VL SQ ONE (21:09)
[2024-11-21] MEDS: INSULIN GLARGINE (LANTUS) 100 UNIT/ML SYR SQ ONE (21:40)
[2024-11-22 00:52] LABS: Glucose,Whole Blood 111 mg/dL (70-110)
[2024-11-22 05:39] LABS: Basophils # (A) 0.04 10*3/uL (0.00-0.10); Basophils % (A) 0.4 %; Eosinophils # (A) 0.15 10*3/uL (0.04-0.35); Eosinophils % (A) 1.4 %; HCT 30.8 % (37.2-46.3); HGB 9.3 g/dL (12.0-15.0); Lymphocytes # (A) 1.31 10*3/uL (0.90-5.00); Lymphocytes % (A) 11.8 %; MCH 26.6 pg (27.0-32.0); MCHC 30.2 g/dL (32.0-37.0); MCV 88.0 fL (80.0-97.0); Monocytes # (A) 1.12 10*3/uL (0.20-1.00); Monocytes % (A) 10.1 %; Neutrophils # (A) 8.32 10*3/uL (1.80-7.70); Neutrophils % (A) 75.2 %; Platelet Count 345 10*3/uL (140-440); RBC 3.50 10*6/uL (4.10-5.20); RDW 16.2 % (11.5-14.5); WBC 11.06 10*3/uL (4.50-10.00)
[2024-11-22 05:51] LABS: Glucose,Whole Blood 116 mg/dL (70-110)
[2024-11-22 05:55] LABS: African American GFR (CKD) 48 (>60 ml/min/1.73 sqM); Anion Gap 9 mmol/L; Blood Urea Nitrogen 76 mg/dL (7-17); Calcium 9.2 mg/dL (8.4-10.2); Carbon Dioxide 25 mmol/L (22-30); Chloride 103 mmol/L (98-107); Glucose 95 mg/dL (74-99); Non-African American GFR(CKD) 42 (>60 ml/min/1.73 sqM); Potassium 4.4 mmol/L (3.5-5.1); Sodium 137 mmol/L (137-145)
[2024-11-22] MEDS: INSULIN GLARGINE (LANTUS) 100 UNIT/ML SYR SQ SCH (07:29)
[2024-11-22 11:09] LABS: Glucose,Whole Blood 203 mg/dL (70-110)
--- NOTE | 2024-11-22 12:07 | P.PN ---
Subjective Progress Note Date: 11/22/24 Principal diagnosis: Acute febrile illness with sepsis and septic shock, Patient is 84-year-old female sent in by EMS from her long term, [facility], yesterday after being noted to be confused, lethargic, with low blood pressures. She was tachycardic with a temperature of 100.8 F. Concerns for sepsis. On arrival, she was hypotensive, fluid resuscitated with a total of 3 L crystalloid fluid. Norepinephrine was started as the blood pressure did not respond to fluid alone. Started on a combination of cefepime and vancomycin for broad- spectrum antibiotic coverage. Serial troponins were elevated, and patient was also diagnosed with acute non-ST elevation OH and started on IV heparin per protocol. 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 Of note, had a recent hospitalization back in July, for sepsis and CHF exacerbation. MRSA was isolated in her blood. SILVIANO done on 08/10/2024 did not show any vegetation. There was a severely reduced left ventricular ejection fraction of 30 to 35%, moderate mitral and tricuspid regurgitation with severe pulmonary hypertension. Mild to moderate aortic regurgitation. Treated with IV antibiotics. She also has history of ischemic cardiomyopathy, biventricular AICD, previous CABG, hypertension, hyperlipidemia, diabetes mellitus type 2, dementia, among other debilitating comorbidities. Workup in the emergency department including chest x-ray showing stable pulmonary vascular congestion with scattered infiltrates and small effusions suggestive of congestive heart failure. X-ray left foot with soft tissue wound over the heel without evidence of osseous erosion. Urinalysis was positive for pyuria and bacteria. CBC with a WBC count of 13.4, hemoglobin 9.3, platelets 439. CMP: Sodium 132, potassium 5.7, chloride 98, serum bicarb 21, BUN 76, creatinine 1.35, glucose 219. LFTs mildly elevated. Troponins elevated at 1.11, 2.2, 4.3, and 5.5 respectively. EKG showing a ventricularly paced rhythm. IV heparin continues per protocol. VBG with a pCO2 of 39 and pH of 7.38. Viral 4 Plex negative for influenza A/B, RSV, COVID of note, on her p revious hospitalization in July was positive for RSV. Currently, patient is being observed in the intensive care unit. She is currently awake and alert. She is oriented to self and place. Does not recall events prior to coming to the hospital. I am told this could be her baseline. She does have dementia and takes Aricept at the long term. Denies any chest pain. IV heparin continues per protocol. Blood pressure is being supported with norepinephrine which is infusing at 0.04 mcg/kg/min. Previously febrile with a Tmax of 101.9 F, and this is down and currently normothermic. Urinary catheter was placed which is draining clear urine. Normal saline to be started at 50 mL/h. pancultures are pending. Patient previously complaining of neck pain, however, denies this to me. She has a CT of the neck and chest ordered. No respiratory distress or stridor. On room air. Patient was seen today on 11/19/2024, remains in the ICU, patient is still requiring norepinephrine at 0.13 mcg/kg/min, she received significant amount of fluid boluses, patient is known to have history of severe LV dysfunction and history of congestive heart failure, hence we cut back on her fluids, patient was not making significant urine output yesterday in spite of all the fluids given and in spite of Lasix IV push, hence I recommended patient going on dobutamine at 2.5 mcg/kg/min, I recommended a Lasix drip at 20 mg/h. Patient did quite well with the infusion of Lasix and dobutamine. Her urine output has been excellent while on Lasix, she is on 2 L nasal cannula, does not seem to be uncomfortable. For her non-ST elevation myocardial infarction, patient remains on heparin, she had abnormal troponins, patient is again noted to have history of severe ischemic cardiomyopathy and previous AICD placement. Considering the overall picture, at this point the patient is an absolute contraindication to any cervical surgery. WBC count is 14.3 hemoglobin 9.1 electrolytes are normal renal profile is normal BUN is 95 creatinine 1.88 bicarb is 14. Patient will be placed on oral bicarb for now. Patient was seen today on 11/20/2024, patient remains in the ICU, remains unstable, still requiring norepinephrine at 0.05 mcg/kg/min she was on Dobutrex at 5 mcg/kg/min however she developed tachyarrhythmia and had to go down to 2.5 mg/kg/min, continues to have now frequent PVCs, I recommended stopping the dobutamine altogether. Patient is still on Lasix at 20 mg/h and I cut it down to 10 mg/h. Her cultures have all been reviewed, patient had positive blood cultures on 11/17 showing MRSA in the blood, her wound cultures showed Proteus mirabilis Pseudomonas Klebsiella and corynebacterium stratum her left leg wound culture showed MRSA and Proteus mirabilis. So obviously the patient is a great set up for sepsis and septic shock as she presented with. Not to mention the patient has severe cardiomyopathy and LV dysfunction. She had previous AICD placement. Still believe the patient has absolute contraindication to surgery, and I will not clear the patient for surgery at this point in time as it is extremely risky and possibly fatal. Patient has multiple comorbidities which makes surgery at this point and absolute current indication remember patient is not hemodynamically stable and her presentation was a presentation of sepsis and septic shock. WBC count is 12.1 hemoglobin 9.1 electrolytes are normal BUN is 87 creatinine 1.40 PTT is 50. Blood sugar is 222. Chest x-ray yesterday showed cardiomegaly, right pleural effusion, right basilar consolidation, and pulmonary vascular congestion consistent with congestive heart failure. Patient was seen today on 11/21/2024, patient remains in the ICU, still requiring norepinephrine at 0.07 mcg/kg/min she is off dobutamine yesterday, remains on Lasix drip at 10 mg/h. Urine output is fair, she had a negative balance of 500 cc over the last 24 hours. Patient remains on daptomycin and cefepime, remains on heparin, this is being addressed by cardiology on the case. May have to consider oral anticoagulation therapy. Patient herself is not in any distress, she is not symptomatic, her WBC count is 11 hemoglobin 9 her PTT is therapeutic 56 electrolytes are normal BUN is 78 creatinine is lower today 1.25. Chest x- ray continues to show evidence of pulmonary edema and cardiomegaly. Patient is only on 2 L nasal cannula and O2 saturation ranging between 96 to 100% Patient was seen today on 11/22/2024, patient is in the ICU, off norepinephrine for the last 10 hours. Patient is on 2 L nasal cannula, remains on Lasix drip at 10 mg/h. She is off inotropes of pressors, chest x-ray not done today however her chest x-ray yesterday showed interstitial edema. Clinically the patient is doing better than expected considering her cardiomyopathy and LV dysfunction and considering her initial presentation. WBC is 11.0 hemoglobin 9.3 electrolytes are normal renal profile showed improvement with BUN of 76 creatinine 1.21 Objective - Vital Signs Vital signs: Vital Signs Temp 97.1 F L 11/22/24 08:00 Pulse 91 11/22/24 11:00 Resp 20 11/22/24 11:00 BP 95/60 11/22/24 11:00 Pulse Ox 100 11/22/24 11:00 FiO2 Intake & Output 11/21/24 11/22/24 11/22/24 18:59 06:59 18:59 Intake Total 1451.093 220.779 80 Output Total 1010 755 225 Balance 441.093 -534.221 -145 Weight 72.3 kg Intake: IV 120 120 80 DAPTOmycin 450 mg In 50 Sodium Chloride 0.9% 50 ml @ 100 mls/hr IVPB Q48H [facility] Rx#:[id number] Sodium Chloride 0.9% 1, 120 120 30 000 ml @ 10 mls/hr IV . Q24H [facility] Rx#:[id number] Intake, IV Titration 371.093 100.779 Amount Cefepime 1 gm In Sodium 50 Chloride 0.9% 50 ml @ 12. 5 mls/hr IVPB Q12H [facility] Rx #:[id number] Furosemide 100 mg In 200 92.667 Sodium Chloride 0.9% 90 ml @ 10 MG/HR 10 mls/hr IV .Q10H [facility] Rx#: [id number] Norepinephrine 8 mg In 121.093 8.112 Sodium Chloride 0.9% 250 ml @ 0.03 MCG/KG/MIN 3. 686 mls/hr IV .Q24H [facility] Rx#:[id number] Oral 960 Output: Urine 1010 755 225 Other: Voiding Method Indwelling Catheter Indwelling Catheter Indwelling Catheter - Exam GENERAL EXAM: Revealed 84-year-old female in no distress on 2 L nasal cannula HEAD: Normocephalic and atraumatic EYES: Normal reaction of pupils, equal size. NOSE: Clear with pink turbinates. THROAT: No erythema or exudates. NECK: No masses, no JVD. CHEST: No chest wall deformity. Left chest implanted AICD/pacemaker generator. Remote appearing sternotomy incision. LUNGS: Crackles in the bases no rhonchi no wheezes CVS: S1 and S2 normal with no audible murmur, regular rhythm. No extra heart sounds ABDOMEN: No hepatosplenomegaly, active bowel sounds, no guarding or rigidity. SKIN: Multiple skin lesions as noted below CENTRAL NERVOUS SYSTEM: Arousable, seems to be a bit more confused today. Otherwise no gross focal deficit EXTREMITIES: There is mild nonpitting lower extremity edema bilaterally. Left heel wound dressed with new dressing. No clubbing or cyanosis. Peripheral pulses are intact. - Labs CBC & Chem 7: 11/22/24 05:07 11/22/24 05:07 Labs: Abnormal Lab Results - Last 24 Hours (Table) 11/21/24 11/21/24 11/22/24 Range/Units 16:14 20:48 00:51 WBC (4.50-10.00) 10*3/uL RBC (4.10-5.20) 10*6/uL Hgb (12.0-15.0) g/dL Hct (37.2-46.3) % MCH (27.0-32.0) pg MCHC (32.0-37.0) g/dL Immature Gran # (0.00-0.04) 10*3/uL Neutrophils # (1.80-7.70) 10*3/uL Monocytes # (0.20-1.00) 10*3/uL BUN (7-17) mg/dL Creatinine (0.52-1.04) mg/dL POC Glucose (mg/dL) 322 H 418 H 111 H (70-110) mg/dL 11/22/24 11/22/24 11/22/24 Range/Units 05:07 05:07 05:49 WBC 11.06 H (4.50-10.00) 10*3/uL RBC 3.50 L (4.10-5.20) 10*6/uL Hgb 9.3 L (12.0-15.0) g/dL Hct 30.8 L (37.2-46.3) % MCH 26.6 L (27.0-32.0) pg MCHC 30.2 L (32.0-37.0) g/dL Immature Gran # 0.12 H (0.00-0.04) 10*3/uL Neutrophils # 8.32 H (1.80-7.70) 10*3/uL Monocytes # 1.12 H (0.20-1.00) 10*3/uL BUN 76 H (7-17) mg/dL Creatinine 1.21 H (0.52-1.04) mg/dL POC Glucose (mg/dL) 116 H (70-110) mg/dL 11/22/24 Range/Units 11:07 WBC (4.50-10.00) 10*3/uL RBC (4.10-5.20) 10*6/uL Hgb (12.0-15.0) g/dL Hct (37.2-46.3) % MCH (27.0-32.0) pg MCHC (32.0-37.0) g/dL Immature Gran # (0.00-0.04) 10*3/uL Neutrophils # (1.80-7.70) 10*3/uL Monocytes # (0.20-1.00) 10*3/uL BUN (7-17) mg/dL Creatinine (0.52-1.04) mg/dL POC Glucose (mg/dL) 203 H (70-110) mg/dL Microbiology - Last 24 Hours (Table) 11/17/24 13:05 Gram Stain - Final Foot - Left Wound Culture - Final Proteus mirabilis Pseudomonas aeruginosa Klebsiella pneum subsp pneum Corynebacterium striatum group Assessment and Plan Assessment: Impression: Sepsis, septic shock, refractory to fluid resuscitation, currently requiring low-dose norepinephrine remains on norepinephrine being titrated. Acute febrile illness, with bacteremia noted on 11/17/2024, 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, Pseudomonas aeruginosa, Proteus MirabellisHistory of MRSA bacteremia, SILVIANO done on 08/10/2024 did not show any vegetation. There was a severely reduced left ventricular ejection fraction of 30 to 35%, moderate mitral and tricuspid regurgitation with severe pulmonary hypertension. Mild to moderate aortic regurgitation. Treated with IV vancomycin Acute non-ST elevation OH, currently on IV heparin per protocol Ischemic cardiomyopathy, required dobutamine at 2.5 mcg/kg/min which I have placed on hold today History of implanted AICD/pacemaker History of coronary artery disease with previous CABG History of hypertension History of hyperlipidemia Diabetes mellitus, type II Acute kidney injury, possibly secondary to hypotension/ATN slightly better today with dobutamine and Lasix drip which I cut down to 10 mg/h Hyperkalemia, secondary to above History of RSV tracheobronchitis July, Chronic normocytic, normochromic anemia Dementia, takes Aricept on outpatient basis Recommendation: Keep patient off pressors and inotropes for now. Continue Lasix 10 mg/h infusion Continue heparin and antibiotics Continue GI prophylaxis Continue sliding scale insulin Will likely transfer the patient out of the ICU later today to a monitored bed and selective. Will continue to follow Time with Patient: Less than 30
--- NOTE | 2024-11-22 12:43 | P.PN ---
Subjective Progress Note Date: 11/22/24 The patient is an 85-year-old female patient who is known to our service from before with a past medical history significant for CAD status post CABG as well as ischemic cardiomyopathy status post AICD and also hypertension and dyslipidemia and diabetes and multiple comorbid conditions including chronic a nemia. The patient is a resident at [facility]. She is somewhat poor historian. The patient was brought from the [facility] to the hospital because of low blood pressure associated with increasing in the shortness of breath and change in mental status. She was found to be hypoxic in the ER and she was admitted to the ICU and placed on oxygen. Also she was found to be hypotensive requiring norepinephrine to support her pressure. Also further evaluation was performed including troponin came to be abnormal. There is a concern about pulmonary embolism given the abnormal D-dimer and currently the patient is in process of having a CT scan of the chest. The EKG showed sinus with paced rhythm and also the patient is tachycardic and she is in mild hypoxic respiratory failure and mild respiratory distress. Hemodynamically she still unstable requiring small dose of norepinephrine. No symptoms of chest pain or chest discomfort beside the shortness of breath. The physical examination is remarkable for mild respiratory distress with regular rate and rhythm and distant heart sounds and soft systolic murmur and diminished breathing sounds bilaterally and mild bilateral lower extremities edema noted with the chest x-ray showed evidence of pulmonary vascular congestions. No NT proBNP was ordered. The troponin is definitely elevated and currently she is on heparin. She has resided at [facility] for 3 years. November 19, 2024 The patient was seen and evaluated this morning. She underwent an echo yesterday and that revealed severe cardiomyopathy with EF at 15%. She underwent a CT scan of the neck which showed osteomyelitis and she was seen by the surgical team with possible taking the patient to the OR. The patient is at very high risk at this stage given the severe cardiomyopathy and giving the ACS with elevated troponin on admission and giving the hypotension requiring norepinephrine and given the decompensated heart failure and currently she is on Lasix IV as well as dobutamine IV. Beside that the CT scan of the chest did not show any evidence of pulmonary embolism. The physical examination is remarkable for regular rhythm with heart rate in the 90s and systolic murmur at the right upper sternal border with diminished breathing sounds bilaterally and mild bilateral lower extremities edema. November 20, 2024 She awakens to voice. Answering some questions. She reports having pain in neck/shoulder. Dobutamine was discontinued, lasix decreased to 10mg. She remains on levophed. Family at bedside does not think she is back to baseline since July when she had pneumonia. November 21, 2024 Pt seen in ICU. Feels "a little better". She is still on levophed. WBC 11.03, Hgb 9.0, creat 1.25. No chest pain or pressure. Shortness of breath improved. November 22, 2024 Patient seen in ICU. She is off pressors. Continues on Lasix drip at 10. WBC 11.06, hemoglobin 9.3, creatinine 1.12. PHYSICAL EXAMINATION: This is a 84-year-old female in no apparent distress at the time of my examination. HEENT: Head is atraumatic, normocephalic. Pupils are equal, round. Sclerae anicteric. Conjunctivae are clear. Mucous membranes of the mouth are moist. Neck is flexed forward in bed. There is no jugular venous distention. CHEST EXAMINATION: Lungs are diminished. On NC O2. No chest wall tenderness is noted on palpation or with deep breathing. HEART EXAMINATION: Heart regular rate and rhythm. S1, S2 heard. No gallops or rub. Distant heart sounds and soft systolic murmur ABDOMEN: Soft, nontender. Bowel sounds are heard. EXTREMITIES: 2+ peripheral pulses with no evidence of peripheral edema and no calf tenderness noted. NEUROLOGIC EXAMINATION: Patient awakens to voice, alert and oriented x3. Assessment Change in mental status which has improved Low blood pressure requiring norepinephrine Mild respiratory distress Abnormal D-dimer with no evidence of PE Abnormal troponin CAD status post CABG Ischemic cardiomyopathy, EF 10-15% Status post AICD Anuria Multiple comorbid conditions MRSA infection, multiple locations Plan Continue aspirin. Consider adding small dose of beta-maryam and the rest of the cardiomyopathy medications once the blood pressure permitting Try to wean norepinephrine as able The patient is at high risk for any surgical intervention at this point, long discussion with family regarding risks vs benefits. Would not recommend surgery at this time. Make consider further assessment when hemodydamically stable. Will follow. I am dictating on behalf of Dr. Samir Landaverde's history/physical and assessment/plan. Objective - Vital Signs Vital signs: Vital Signs Temp 97.8 F 11/22/24 12:00 Pulse 97 07/06/25 12:00 Resp 19 11/22/24 12:00 BP 96/56 11/22/24 12:00 Pulse Ox 93 L 11/22/24 12:00 FiO2 Intake & Output 11/21/24 11/22/24 11/22/24 18:59 06:59 18:59 Intake Total 1451.093 220.779 100 Output Total 1010 755 400 Balance 441.093 -534.221 -300 Weight 72.3 kg Intake: IV 120 120 100 DAPTOmycin 450 mg In 50 Sodium Chloride 0.9% 50 ml @ 100 mls/hr IVPB Q48H [facility] Rx#:[id number] Sodium Chloride 0.9% 1, 120 120 50 000 ml @ 10 mls/hr IV . Q24H [facility] Rx#:[id number] Intake, IV Titration 371.093 100.779 Amount Cefepime 1 gm In Sodium 50 Chloride 0.9% 50 ml @ 12. 5 mls/hr IVPB Q12H [facility] Rx #:[id number] Furosemide 100 mg In 200 92.667 Sodium Chloride 0.9% 90 ml @ 10 MG/HR 10 mls/hr IV .Q10H [facility] Rx#: [id number] Norepinephrine 8 mg In 121.093 8.112 Sodium Chloride 0.9% 250 ml @ 0.03 MCG/KG/MIN 3. 686 mls/hr IV .Q24H [facility] Rx#:[id number] Oral 960 Output: Urine 1010 755 400 Other: Voiding Method Indwelling Catheter Indwelling Catheter Indwelling Catheter - Labs CBC & Chem 7: 11/22/24 05:07 11/22/24 05:07 Labs: Abnormal Lab Results - Last 24 Hours (Table) 11/21/24 11/21/24 11/22/24 Range/Units 16:14 20:48 00:51 WBC (4.50-10.00) 10*3/uL RBC (4.10-5.20) 10*6/uL Hgb (12.0-15.0) g/dL Hct (37.2-46.3) % MCH (27.0-32.0) pg MCHC (32.0-37.0) g/dL Immature Gran # (0.00-0.04) 10*3/uL Neutrophils # (1.80-7.70) 10*3/uL Monocytes # (0.20-1.00) 10*3/uL BUN (7-17) mg/dL Creatinine (0.52-1.04) mg/dL POC Glucose (mg/dL) 322 H 418 H 111 H (70-110) mg/dL 11/22/24 11/22/24 11/22/24 Range/Units 05:07 05:07 05:49 WBC 11.06 H (4.50-10.00) 10*3/uL RBC 3.50 L (4.10-5.20) 10*6/uL Hgb 9.3 L (12.0-15.0) g/dL Hct 30.8 L (37.2-46.3) % MCH 26.6 L (27.0-32.0) pg MCHC 30.2 L (32.0-37.0) g/dL Immature Gran # 0.12 H (0.00-0.04) 10*3/uL Neutrophils # 8.32 H (1.80-7.70) 10*3/uL Monocytes # 1.12 H (0.20-1.00) 10*3/uL BUN 76 H (7-17) mg/dL Creatinine 1.21 H (0.52-1.04) mg/dL POC Glucose (mg/dL) 116 H (70-110) mg/dL 11/22/24 Range/Units 11:07 WBC (4.50-10.00) 10*3/uL RBC (4.10-5.20) 10*6/uL Hgb (12.0-15.0) g/dL Hct (37.2-46.3) % MCH (27.0-32.0) pg MCHC (32.0-37.0) g/dL Immature Gran # (0.00-0.04) 10*3/uL Neutrophils # (1.80-7.70) 10*3/uL Monocytes # (0.20-1.00) 10*3/uL BUN (7-17) mg/dL Creatinine (0.52-1.04) mg/dL POC Glucose (mg/dL) 203 H (70-110) mg/dL Microbiology - Last 24 Hours (Table) 11/17/24 13:05 Gram Stain - Final Foot - Left Wound Culture - Final Proteus mirabilis Pseudomonas aeruginosa Klebsiella pneum subsp pneum Corynebacterium striatum group
--- NOTE | 2024-11-22 13:03 | P.PN ---
Subjective Patient is 84-year-old female sent in by EMS from her [facility], [facility], after being noted to be confused, lethargic, with low blood pressures. She was tachycardic with a temperature of 100.8 F. Concerns for sepsis. On arrival, she was hypotensive, fluid resuscitated with a total of 3 L crystalloid fluid. Norepinephrine was started as the blood pressure did not respond to fluid alone. Started on a combination of cefepime and vancomycin for broad-spectrum antibiotic coverage. Serial troponins were elevated, and patient was also diag nosed with acute non-ST elevation AL and started on IV heparin per protocol. 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 Of note, had a recent hospitalization back in July, for sepsis and CHF exacerbation. MRSA was isolated in her blood. SILVIANO done on 08/10/2024 did not show any vegetation. There was a severely reduced left ventricular ejection fraction of 30 to 35%, moderate mitral and tricuspid regurgitation with severe pulmonary hypertension. Mild to moderate aortic regurgitation. Treated with IV antibiotics. She also has history of ischemic cardiomyopathy, biventricular AICD, previous CABG, hypertension, hyperlipidemia, diabetes mellitus type 2, dementia, among other debilitating comorbidities. Workup in the emergency department including chest x-ray showing stable pulmonary vascular congestion with scattered infiltrates and small effusions suggestive of congestive heart failure. X-ray left foot with soft t issue wound over the heel without evidence of osseous erosion. Urinalysis was positive for pyuria and bacteria. CBC with a WBC count of 13.4, hemoglobin 9.3, platelets 439. CMP: Sodium 132, potassium 5.7, chloride 98, serum bicarb 21, BUN 76, creatinine 1.35, glucose 219. LFTs mildly elevated. Troponins elevated at 1.11, 2.2, 4.3, and 5.5 respectively. EKG showing a ventricularly paced rhythm. IV heparin continues per protocol. VBG with a pCO2 of 39 and pH of 7.38. Viral 4 Plex negative for influenza A/B, RSV, COVID of note, on her previous hospitalization in July was positive for RSV. Currently, patient is being observed in the intensive care unit. She is currently awake and alert. She is oriented to self and place. Does not recall events prior to coming to the hospital. I am told this could be her baseline. She does have dementia and takes Aricept [facility] the [facility]. Denies any chest pain. IV heparin continues per protocol. Blood pressure is being supported with norepinephrine which is infusing at 0.04 mcg/kg/min. Previously febrile with a Tmax of 101.9 F, and this is down and currently normothermic. Urinary catheter was placed which is draining clear urine. Normal saline to be started at 50 mL/h. pancultures are pending. Patient previously complaining of neck pain, however, denies this to me. She has a CT of the neck and chest ordered. No respiratory distress or stridor 11/21. Patient seen and examined.Labs reviewed showing WBC 9.03, hemoglobin 9, platelet count 428, sodium 137, potassium 4.4, BUN 78, creatinine 1.25. Currently on IV Levophed which is being weaned down. Currently on IV cefepime, daptomycin and Lasix drip. Complaining of leg pain. 11/22/2024 Patient remains on norepinephrine. Chest x-ray from yesterday showed interstitial edema no x-ray was done today. Patient audelia on IV Lasix drip. Wh ite count continues to improve and improved to 11 from 12 creatinine remained stable at 1.2. Patient is having good urine output REVIEW OF SYSTEMS: CONSTITUTIONAL: No fever, no malaise,. CARDIOVASCULAR: No chest pain, no palpitations, no syncope. PULMONARY: No shortness of breath, no cough, GASTROINTESTINAL: No diarrhea, no nausea, no vomiting, no abdominal pain. NEUROLOGICAL: No headaches, no weakness, PHYSICAL EXAMINATION: GENERAL: The patient is alert and oriented x3, ill looking HEENT: Pupils are round and equally reacting to light. EOMI. No scleral icterus. No conjunctival pallor. Normocephalic, atraumatic. No pharyngeal erythema. No thyromegaly. CARDIOVASCULAR: S1 and S2 present. No murmurs, rubs, or gallops. PULMONARY: Diminished breath sounds at the bases, no wheezing or crackles. ABDOMEN: Soft, nontender, nondistended, normoactive bowel sounds. No palpable organomegaly. MUSCULOSKELETAL: No joint swelling or deformity. EXTREMITIES: No cyanosis, clubbing, or pedal edema. NEUROLOGICAL: Gross neurological examination did not reveal any focal deficits. SKIN: No rashes. Assessment and plan Septic shock, secondary to infection from the leg wounds, vertebral osteomyelitis, unknown whether patient actually had UTI on admission, patient remains on pressor support. Acute febrile illness, with bacteremia noted on 11/17/2024, 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, Pseudomonas aeruginosa, Proteus MirabellisHistory of MRSA bacteremia, SILVIANO done on 08/10/2024 did not show any vegetation Acute non-ST elevation AL Ischemic cardiomyopathy low ejection fraction, remains on Lasix drip History of implanted AICD/pacemaker History of coronary artery disease with previous CABG History of hypertension History of hyperlipidemia Diabetes mellitus, type II Acute kidney injury Hyperkalemia History of RSV tracheobronchitis July, Chronic normocytic, normochromic anemia Dementia Monitor vital signs Monitor CBC Monitor CMP Continue telemetry monitoring Follow-up on blood culture Strict I's and O's, daily weights Continue IV Lasix drip Currently on Levophed Currently on daptomycin and cefepime ID following Cardiology following Critical care following Labs and medication were reviewed.. Continue same treatment. Monitor labs and vitals. DVT and GI prophylaxis. Further recommendations as per clinical course of the patient Objective - Vital Signs Vital signs: Vital Signs Temp 97.8 F 11/22/24 12:00 Pulse 97 11/22/24 12:00 Resp 19 11/22/24 12:00 BP 96/56 11/22/24 12:00 Pulse Ox 93 L 11/22/24 12:00 FiO2 Intake & Output 11/21/24 11/22/24 11/22/24 18:59 06:59 18:59 Intake Total 1451.093 220.779 100 Output Total 1010 755 400 Balance 441.093 -534.221 -300 Weight 72.3 kg Intake: IV 120 120 100 DAPTOmycin 450 mg In 50 Sodium Chloride 0.9% 50 ml @ 100 mls/hr IVPB Q48H [facility] Rx#:[id number] Sodium Chloride 0.9% 1, 120 120 50 000 ml @ 10 mls/hr IV . Q24H [facility] Rx#:[id number] Intake, IV Titration 371.093 100.779 Amount Cefepime 1 gm In Sodium 50 Chloride 0.9% 50 ml @ 12. 5 mls/hr IVPB Q12H [facility] Rx #:[id number] Furosemide 100 mg In 200 92.667 Sodium Chloride 0.9% 90 ml @ 10 MG/HR 10 mls/hr IV .Q10H [facility] Rx#: [id number] Norepinephrine 8 mg In 121.093 8.112 Sodium Chloride 0.9% 250 ml @ 0.03 MCG/KG/MIN 3. 686 mls/hr IV .Q24H [facility] Rx#:[id number] Oral 960 Output: Urine 1010 755 400 Other: Voiding Method Indwelling Catheter Indwelling Catheter Indwelling Catheter - Labs CBC & Chem 7: 11/22/24 05:07 11/22/24 05:07 Labs: Abnormal Lab Results - Last 24 Hours (Table) 11/21/24 11/21/24 11/22/24 Range/Units 16:14 20:48 00:51 WBC (4.50-10.00) 10*3/uL RBC (4.10-5.20) 10*6/uL Hgb (12.0-15.0) g/dL Hct (37.2-46.3) % MCH (27.0-32.0) pg MCHC (32.0-37.0) g/dL Immature Gran # (0.00-0.04) 10*3/uL Neutrophils # (1.80-7.70) 10*3/uL Monocytes # (0.20-1.00) 10*3/uL BUN (7-17) mg/dL Creatinine (0.52-1.04) mg/dL POC Glucose (mg/dL) 322 H 418 H 111 H (70-110) mg/dL 11/22/24 11/22/24 11/22/24 Range/Units 05:07 05:07 05:49 WBC 11.06 H (4.50-10.00) 10*3/uL RBC 3.50 L (4.10-5.20) 10*6/uL Hgb 9.3 L (12.0-15.0) g/dL Hct 30.8 L (37.2-46.3) % MCH 26.6 L (27.0-32.0) pg MCHC 30.2 L (32.0-37.0) g/dL Immature Gran # 0.12 H (0.00-0.04) 10*3/uL Neutrophils # 8.32 H (1.80-7.70) 10*3/uL Monocytes # 1.12 H (0.20-1.00) 10*3/uL BUN 76 H (7-17) mg/dL Creatinine 1.21 H (0.52-1.04) mg/dL POC Glucose (mg/dL) 116 H (70-110) mg/dL 11/22/24 Range/Units 11:07 WBC (4.50-10.00) 10*3/uL RBC (4.10-5.20) 10*6/uL Hgb (12.0-15.0) g/dL Hct (37.2-46.3) % MCH (27.0-32.0) pg MCHC (32.0-37.0) g/dL Immature Gran # (0.00-0.04) 10*3/uL Neutrophils # (1.80-7.70) 10*3/uL Monocytes # (0.20-1.00) 10*3/uL BUN (7-17) mg/dL Creatinine (0.52-1.04) mg/dL POC Glucose (mg/dL) 203 H (70-110) mg/dL Microbiology - Last 24 Hours (Table) 11/17/24 13:05 Gram Stain - Final Foot - Left Wound Culture - Final Proteus mirabilis Pseudomonas aeruginosa Klebsiella pneum subsp pneum Corynebacterium striatum group
[2024-11-22 16:11] LABS: Glucose,Whole Blood 241 mg/dL (70-110)
--- NOTE | 2024-11-22 16:54 | P.PN ---
Subjective Progress Note Date: 11/22/24 Principal diagnosis: Reason for follow-up is left heel infected pressure ulcer and bacteremia Patient is a 84-year-old female with a past medical history significant for Coronary Artery Disease (CAD), Heart Failure, Dementia, Diabetes Mellitus, Hypertension, Myocardial Infarction (ID), Pneumonia, Vascular Disorder, history of left heel infected pressure ulcer and halfway resident patient has been sent to the from the halfway as the patient was having mental status changes fever and elevated white count. On today's evaluation that is 11/22/2024, Patient is afebrile patient is currently on room air and breathing more comfortably, the patient was sleepy the time of evaluation however seem to be doing better per the daughter at the bedside no vomiting or diarrhea has been reported. The patient white count is 11.06, creatinine is 1.21 blood culture repeat currently pending Objective - Vital Signs Vital signs: Vital Signs Temp 97.8 F 11/22/24 12:00 Pulse 97 11/22/24 12:00 Resp 19 11/22/24 12:00 BP 96/56 11/22/24 12:00 Pulse Ox 93 L 11/22/24 12:00 FiO2 Intake & Output 11/21/24 11/22/24 11/22/24 18:59 06:59 18:59 Intake Total 1451.093 220.779 100 Output Total 1010 755 400 Balance 441.093 -534.221 -300 Weight 72.3 kg Intake: IV 120 120 100 DAPTOmycin 450 mg In 50 Sodium Chloride 0.9% 50 ml @ 100 mls/hr IVPB Q48H [facility] Rx#:[id number] Sodium Chloride 0.9% 1, 120 120 50 000 ml @ 10 mls/hr IV . Q24H [facility] Rx#:[id number] Intake, IV Titration 371.093 100.779 Amount Cefepime 1 gm In Sodium 50 Chloride 0.9% 50 ml @ 12. 5 mls/hr IVPB Q12H [facility] Rx #:[id number] Furosemide 100 mg In 200 92.667 Sodium Chloride 0.9% 90 ml @ 10 MG/HR 10 mls/hr IV .Q10H [facility] Rx#: [id number] Norepinephrine 8 mg In 121.093 8.112 Sodium Chloride 0.9% 250 ml @ 0.03 MCG/KG/MIN 3. 686 mls/hr IV .Q24H [facility] Rx#:[id number] Oral 960 Output: Urine 1010 755 400 Other: Voiding Method Indwelling Catheter Indwelling Catheter Indwelling Catheter - Exam GENERAL DESCRIPTION: An elderly female lying in bed in no distress RESPIRATORY SYSTEM: Unlabored breathing , decreased breath sounds at bases HEART: S1 S2 regular rate and rhythm , ABDOMEN: Soft , no tenderness EXTREMITIES: Left wound is currently dressed - Labs CBC & Chem 7: 11/22/24 05:07 11/22/24 05:07 Labs: Abnormal Lab Results - Last 24 Hours (Table) 11/21/24 11/21/24 11/22/24 Range/Units 16:14 20:48 00:51 WBC (4.50-10.00) 10*3/uL RBC (4.10-5.20) 10*6/uL Hgb (12.0-15.0) g/dL Hct (37.2-46.3) % MCH (27.0-32.0) pg MCHC (32.0-37.0) g/dL Immature Gran # (0.00-0.04) 10*3/uL Neutrophils # (1.80-7.70) 10*3/uL Monocytes # (0.20-1.00) 10*3/uL BUN (7-17) mg/dL Creatinine (0.52-1.04) mg/dL POC Glucose (mg/dL) 322 H 418 H 111 H (70-110) mg/dL 11/22/24 11/22/24 11/22/24 Range/Units 05:07 05:07 05:49 WBC 11.06 H (4.50-10.00) 10*3/uL RBC 3.50 L (4.10-5.20) 10*6/uL Hgb 9.3 L (12.0-15.0) g/dL Hct 30.8 L (37.2-46.3) % MCH 26.6 L (27.0-32.0) pg MCHC 30.2 L (32.0-37.0) g/dL Immature Gran # 0.12 H (0.00-0.04) 10*3/uL Neutrophils # 8.32 H (1.80-7.70) 10*3/uL Monocytes # 1.12 H (0.20-1.00) 10*3/uL BUN 76 H (7-17) mg/dL Creatinine 1.21 H (0.52-1.04) mg/dL POC Glucose (mg/dL) 116 H (70-110) mg/dL 11/22/24 Range/Units 11:07 WBC (4.50-10.00) 10*3/uL RBC (4.10-5.20) 10*6/uL Hgb (12.0-15.0) g/dL Hct (37.2-46.3) % MCH (27.0-32.0) pg MCHC (32.0-37.0) g/dL Immature Gran # (0.00-0.04) 10*3/uL Neutrophils # (1.80-7.70) 10*3/uL Monocytes # (0.20-1.00) 10*3/uL BUN (7-17) mg/dL Creatinine (0.52-1.04) mg/dL POC Glucose (mg/dL) 203 H (70-110) mg/dL Microbiology - Last 24 Hours (Table) 11/17/24 13:05 Gram Stain - Final Foot - Left Wound Culture - Final Proteus mirabilis Pseudomonas aeruginosa Klebsiella pneum subsp pneum Corynebacterium striatum group Assessment and Plan (1) Non healing left heel wound Current Visit: Yes Status: Acute Code(s): S91.302A - UNSPECIFIED OPEN WOUND, LEFT FOOT, INITIAL ENCOUNTER SNOMED Code(s): 209167126 (2) Septic shock Current Visit: Yes Status: Acute Code(s): A41.9 - SEPSIS, UNSPECIFIED ORGANISM; R65.21 - SEVERE SEPSIS WITH SEPTIC SHOCK SNOMED Code(s): 84033575 (3) Urinary tract infection Current Visit: Yes Status: Acute Code(s): N39.0 - URINARY TRACT INFECTION, SITE NOT SPECIFIED SNOMED Code(s): 17950718 (4) Bacteremia Current Visit: Yes Status: Acute Code(s): R78.81 - BACTEREMIA SNOMED Code(s): 2185215 (5) Vertebral osteomyelitis Current Visit: Yes Status: Acute Code(s): M46.20 - OSTEOMYELITIS OF VERTEBRA, SITE UNSPECIFIED SNOMED Code(s): 487408076 Plan: 1patient presented hospital with sepsis in this patient who did have fever tachycardia tachypnea hypotension elevated white count meeting criteria for SIRS source is likely urinary as the patient has significantly positive UA plus minus infected left heel pressure ulcer with a previous history of MRSA infection to the left heel 2-sulfa allergy 3-blood cultures currently growing MRSA left heel culture currently growing MRSA's Proteus and Pseudomonas 4patient also have a destructive changes at C3-C4 with a question of possible discitis/osteomyelitis patient is concerned to be high surgical risk for surgery orthopedics is on standby 5-patient is afebrile patient white count is trending down repeat blood culture currently pending 6patient to be treated with daptomycin and cefepime and continue supportive care Daughter at the bedside multiple question answered Dictation was produced using [employer] dictation software. please excuse any grammatical, word or spelling errors.
[2024-11-22 20:11] LABS: Glucose,Whole Blood 188 mg/dL (70-110)
[2024-11-23 06:01] LABS: Glucose,Whole Blood 169 mg/dL (70-110)
[2024-11-23 06:49] LABS: HCT 28.7 % (37.2-46.3); HGB 8.6 g/dL (12.0-15.0); MCH 26.4 pg (27.0-32.0); MCHC 30.0 g/dL (32.0-37.0); MCV 88.0 fL (80.0-97.0); Platelet Count 323 10*3/uL (140-440); RBC 3.26 10*6/uL (4.10-5.20); RDW 16.7 % (11.5-14.5); WBC 11.30 10*3/uL (4.50-10.00)
[2024-11-23 07:07] LABS: African American GFR (CKD) 47 (>60 ml/min/1.73 sqM); Anion Gap 10 mmol/L; Blood Urea Nitrogen 70 mg/dL (7-17); Calcium 9.1 mg/dL (8.4-10.2); Carbon Dioxide 23 mmol/L (22-30); Chloride 105 mmol/L (98-107); Glucose 172 mg/dL (74-99); Magnesium 1.8 mg/dL (1.6-2.3); Non-African American GFR(CKD) 41 (>60 ml/min/1.73 sqM); Potassium 4.3 mmol/L (3.5-5.1); Sodium 138 mmol/L (137-145)
[2024-11-23 11:29] LABS: Glucose,Whole Blood 265 mg/dL (70-110)
--- NOTE | 2024-11-23 12:36 | P.PN ---
Subjective Progress Note Date: 11/23/24 The patient is an 85-year-old female patient who is known to our service from before with a past medical history significant for CAD status post CABG as well as ischemic cardiomyopathy status post AICD and also hypertension and dyslipidemia and diabetes and multiple comorbid conditions including chronic a nemia. The patient is a [facility]. She is somewhat poor historian. The patient was brought from the [facility] to the hospital because of low blood pressure associated with increasing in the shortness of breath and change in mental status. She was found to be hypoxic in the ER and she was admitted to the ICU and placed on oxygen. Also she was found to be hypotensive requiring norepinephrine to support her pressure. Also further evaluation was performed including troponin came to be abnormal. There is a concern about pulmonary embolism given the abnormal D-dimer and currently the patient is in process of having a CT scan of the chest. The EKG showed sinus with paced rhythm and also the patient is tachycardic and she is in mild hypoxic respiratory failure and mild respiratory distress. Hemodynamically she still unstable requiring small dose of norepinephrine. No symptoms of chest pain or chest discomfort beside the shortness of breath. The physical examination is remarkable for mild respiratory distress with regular rate and rhythm and distant heart sounds and soft systolic murmur and diminished breathing sounds bilaterally and mild bilateral lower extremities edema noted with the chest x-ray showed evidence of pulmonary vascular congestions. No NT proBNP was ordered. The troponin is definitely elevated and currently she is on heparin. She has resided at [facility] for 3 years. November 19, 2024 The patient was seen and evaluated this morning. She underwent an echo yesterday and that revealed severe cardiomyopathy with EF at 15%. She underwent a CT scan of the neck which showed osteomyelitis and she was seen by the surgical team with possible taking the patient to the OR. The patient is at very high risk at this stage given the severe cardiomyopathy and giving the ACS with elevated troponin on admission and giving the hypotension requiring norepinephrine and given the decompensated heart failure and currently she is on Lasix IV as well as dobutamine IV. Beside that the CT scan of the chest did not show any evidence of pulmonary embolism. The physical examination is remarkable for regular rhythm with heart rate in the 90s and systolic murmur at the right upper sternal border with diminished breathing sounds bilaterally and mild bilateral lower extremities edema. November 20, 2024 She awakens to voice. Answering some questions. She reports having pain in neck/shoulder. Dobutamine was discontinued, lasix decreased to 10mg. She remains on levophed. Family at bedside does not think she is back to baseline since July when she had pneumonia. November 21, 2024 Pt seen in ICU. Feels "a little better". She is still on levophed. WBC 11.03, Hgb 9.0, creat 1.25. No chest pain or pressure. Shortness of breath improved. November 22, 2024 Patient seen in ICU. She is off pressors. Continues on Lasix drip at 10. WBC 11.06, hemoglobin 9.3, creatinine 1.12. 11/23/2024 Patient was transferred out of ICU to stepdown floor today. She is off pressors, she is on Lasix drip. I will discontinue Lasix drip and start IV Lasix 40 twice daily. Her kidney function has continued to improve. Urine output is still on the low side. PHYSICAL EXAMINATION: This is a 84-year-old female in no apparent distress at the time of my examination. HEENT: Head is atraumatic, normocephalic. Pupils are equal, round. Sclerae anicteric. Conjunctivae are clear. Mucous membranes of the mouth are moist. Neck is flexed forward in bed. There is no jugular venous distention. CHEST EXAMINATION: Lungs are diminished. On NC O2. No chest wall tenderness is noted on palpation or with deep breathing. HEART EXAMINATION: Heart regular rate and rhythm. S1, S2 heard. No gallops or rub. Distant heart sounds and soft systolic murmur ABDOMEN: Soft, nontender. Bowel sounds are heard. EXTREMITIES: 2+ peripheral pulses with no evidence of peripheral edema and no calf tenderness noted. NEUROLOGIC EXAMINATION: Patient awakens to voice, alert and oriented x3. Assessment Change in mental status which has improved Low blood pressure requiring norepinephrine Mild respiratory distress Abnormal D-dimer with no evidence of PE Abnormal troponin CAD status post CABG Ischemic cardiomyopathy, EF 10-15% Status post AICD Anuria Multiple comorbid conditions MRSA infection, multiple locations Plan Continue aspirin. Discontinue IV Lasix drip, start IV Lasix push 40 mg twice daily. Metoprolol 12.5 mg The patient is at high risk for any surgical intervention at this point, long discussion with family regarding risks vs benefits. Would not recommend surgery at this time. Make consider further assessment when hemodydamically stable. Prognosis extremely guarded Objective - Vital Signs Vital signs: Vital Signs Temp 97.4 F L 11/23/24 07:38 Pulse 84 11/23/24 10:55 Resp 18 11/23/24 10:55 BP 101/55 11/23/24 10:55 Pulse Ox 93 L 11/23/24 10:55 FiO2 Intake & Output 11/22/24 11/23/24 11/23/24 18:59 06:59 18:59 Intake Total 270.0 100 100 Output Total 705 500 Balance -435.0 -400 100 Intake: IV 170.0 Cefepime 1 gm In Sodium 50.0 Chloride 0.9% 50 ml @ 12. 5 mls/hr IVPB Q12H [facility] Rx #:[id number] DAPTOmycin 450 mg In 50 Sodium Chloride 0.9% 50 ml @ 100 mls/hr IVPB Q48H [facility] Rx#:[id number] Sodium Chloride 0.9% 1, 70 000 ml @ 10 mls/hr IV . Q24H [facility] Rx#:[id number] Intake, IV Titration 100 100 Amount Furosemide 100 mg In 100 100 Sodium Chloride 0.9% 90 ml @ 10 MG/HR 10 mls/hr IV .Q10H [facility] Rx#: [id number] Oral 100 Output: Urine 705 500 Other: Voiding Method Indwelling Catheter Indwelling Catheter Indwelling Catheter - Labs CBC & Chem 7: 11/23/24 06:15 11/23/24 06:15 Labs: Abnormal Lab Results - Last 24 Hours (Table) 11/22/24 11/22/24 11/23/24 Range/Units 16:09 20:09 05:59 WBC (4.50-10.00) 10*3/uL RBC (4.10-5.20) 10*6/uL Hgb (12.0-15.0) g/dL Hct (37.2-46.3) % MCH (27.0-32.0) pg MCHC (32.0-37.0) g/dL BUN (7-17) mg/dL Creatinine (0.52-1.04) mg/dL Glucose (74-99) mg/dL POC Glucose (mg/dL) 241 H 188 H 169 H (70-110) mg/dL 11/23/24 11/23/24 11/23/24 Range/Units 06:15 06:15 11:26 WBC 11.30 H (4.50-10.00) 10*3/uL RBC 3.26 L (4.10-5.20) 10*6/uL Hgb 8.6 L (12.0-15.0) g/dL Hct 28.7 L (37.2-46.3) % MCH 26.4 L (27.0-32.0) pg MCHC 30.0 L (32.0-37.0) g/dL BUN 70 H (7-17) mg/dL Creatinine 1.24 H (0.52-1.04) mg/dL Glucose 172 H (74-99) mg/dL POC Glucose (mg/dL) 265 H (70-110) mg/dL Microbiology - Last 24 Hours (Table) 11/21/24 05:17 Blood Culture - Preliminary Blood
--- NOTE | 2024-11-23 13:33 | P.PN ---
Subjective Patient is 84-year-old female sent in by EMS from her retirement, [facility], after being noted to be confused, lethargic, with low blood pressures. She was tachycardic with a temperature of 100.8 F. Concerns for sepsis. On arrival, she was hypotensive, fluid resuscitated with a total of 3 L crystalloid fluid. Norepinephrine was started as the blood pressure did not respond to fluid alone. Started on a combination of cefepime and vancomycin for broad-spectrum antibiotic coverage. Serial troponins were elevated, and patient was also diag nosed with acute non-ST elevation WI and started on IV heparin per protocol. 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 Of note, had a recent hospitalization back in July, for sepsis and CHF exacerbation. MRSA was isolated in her blood. SILVIANO done on 08/10/2024 did not show any vegetation. There was a severely reduced left ventricular ejection fraction of 30 to 35%, moderate mitral and tricuspid regurgitation with severe pulmonary hypertension. Mild to moderate aortic regurgitation. Treated with IV antibiotics. She also has history of ischemic cardiomyopathy, biventricular AICD, previous CABG, hypertension, hyperlipidemia, diabetes mellitus type 2, dementia, among other debilitating comorbidities. Workup in the emergency department including chest x-ray showing stable pulmonary vascular congestion with scattered infiltrates and small effusions suggestive of congestive heart failure. X-ray left foot with soft t issue wound over the heel without evidence of osseous erosion. Urinalysis was positive for pyuria and bacteria. CBC with a WBC count of 13.4, hemoglobin 9.3, platelets 439. CMP: Sodium 132, potassium 5.7, chloride 98, serum bicarb 21, BUN 76, creatinine 1.35, glucose 219. LFTs mildly elevated. Troponins elevated at 1.11, 2.2, 4.3, and 5.5 respectively. EKG showing a ventricularly paced rhythm. IV heparin continues per protocol. VBG with a pCO2 of 39 and pH of 7.38. Viral 4 Plex negative for influenza A/B, RSV, COVID of note, on her previous hospitalization in July was positive for RSV. Currently, patient is being observed in the intensive care unit. She is currently awake and alert. She is oriented to self and place. Does not recall events prior to coming to the hospital. I am told this could be her baseline. She does have dementia and takes Aricept at the retirement. Denies any chest pain. IV heparin continues per protocol. Blood pressure is being supported with norepinephrine which is infusing at 0.04 mcg/kg/min. Previously febrile with a Tmax of 101.9 F, and this is down and currently normothermic. Urinary catheter was placed which is draining clear urine. Normal saline to be started at 50 mL/h. pancultures are pending. Patient previously complaining of neck pain, however, denies this to me. She has a CT of the neck and chest ordered. No respiratory distress or stridor 11/21. Patient seen and examined.Labs reviewed showing WBC 9.03, hemoglobin 9, platelet count 428, sodium 137, potassium 4.4, BUN 78, creatinine 1.25. Currently on IV Levophed which is being weaned down. Currently on IV cefepime, daptomycin and Lasix drip. Complaining of leg pain. 11/22/2024 Patient remains on norepinephrine. Chest x-ray from yesterday showed interstitial edema no x-ray was done today. Patient audelia on IV Lasix drip. White count continues to improve and improved to 11 from 12 creatinine remained stable at 1.2. Patient is having good urine output REVIEW OF SYSTEMS: CONSTITUTIONAL: No fever, no malaise,. CARDIOVASCULAR: No chest pain, no palpitations, no syncope. PULMONARY: No shortness of breath, no cough, GASTROINTESTINAL: No diarrhea, no nausea, no vomiting, no abdominal pain. NEUROLOGICAL: No headaches, no weakness, 11/23 Patient currently in 368 She is awake but drowsy also she is confused cannot contribute much to the history this morning, probably also part of her delirium Patient herself denies any specific complaints Patient remains tachycardic with heart rate jumps to 103, blood pressure 102/60. Patient is afebrile and breathing at a rate of 18 to 20/min Labs reviewed, patient has stable leukocytosis 11.3 and hemoglobin 8.6 Creatinine 1.24, which is stable since admission compared to baseline 0.8-1.0 Patient remains on IV cefepime and daptomycin and Lasix drip Active Medications Generic Name Dose Route Start Last Admin Trade Name Freq PRN Reason Stop Dose Admin Acetaminophen 650 mg 11/17/24 17:56 11/22/24 06:47 Acetaminophen Tab 325 Mg Tab PO 650 mg Q4HR PRN Administration Fever and/or Mild Pain Hydrocodone Bitart/Acetaminophen 1 each 11/20/24 17:48 11/23/24 11:01 Hydrocodone/Apap 5-325mg 1 Each Tab PO 1 each Q6HR PRN Administration Pain 4-6 Alprazolam 0.25 mg 11/18/24 17:00 11/22/24 16:32 Alprazolam 0.25 Mg Tab PO 0.25 mg DAILY@1700 CHERISE Administration Aspirin 81 mg 11/19/24 09:00 11/23/24 09:44 Aspirin 81 Mg PO 81 mg DAILY CHERISE Administration Dextrose/Water 25 ml 11/18/24 01:02 Dextrose 50% Syringe 50 Ml IVP PER PROTOCOL PRN Hypoglycemia Protocol Dextrose/Water 50 ml 11/18/24 01:02 Dextrose 50% Syringe 50 Ml IVP PER PROTOCOL PRN Hypoglycemia Protocol Furosemide 40 mg 11/23/24 21:00 Furosemide 10 Mg/Ml 4 Ml Vial IV Q12HR CHERISE Hydromorphone HCl 0.125 mg 11/20/24 17:48 11/23/24 13:23 Hydromorphone 0.5 Mg/0.5 Ml Syringe IVP 0.125 mg Q6HR PRN Administration Pain 7-10 Cefepime HCl 1 gm/ Sodium 50 mls @ 12.5 mls/hr 11/18/24 02:00 11/23/24 13:25 Chloride IVPB 12.5 mls/hr Q12H CHERISE Administration Sodium Chloride 1,000 mls @ 10 mls/hr 11/17/24 18:00 11/22/24 16:09 Saline 0.9% IV 10 mls/hr .Q24H CHERISE Administration Daptomycin 450 mg/ Sodium 50 mls @ 100 mls/hr 11/20/24 09:00 11/22/24 08:34 Chloride IVPB 100 mls/hr Q48H CHERISE Administration Protocol Insulin Glargine 5 unit 11/22/24 07:00 11/23/24 06:26 Insulin Glargine (Lantus) 100 Unit/Ml Syr SQ 5 unit BID@0700,2100 CHERISE Administration Insulin Human Lispro 0 unit 11/18/24 07:30 11/23/24 12:18 Insulin Lispro (Humalog) 100 Unit/Ml 10 Ml Vl SQ 3 unit ACHS CHERISE Administration Protocol Miscellaneous Information 1 each 11/17/24 17:56 Potassium Replacement Protocol 1 Each Misc MISCELLANE DAILY PRN Per Protocol Miscellaneous Information 1 each 11/17/24 17:56 Magnesium Replacement Protocol 1 Each Misc MISCELLANE DAILY PRN Per Protocol Protocol Miscellaneous Information 1 each 11/17/24 17:56 Phosphorus Replacement Protoco 1 Each Misc MISCELLANE DAILY PRN Per Protocol Protocol Naloxone HCl 0.2 mg 11/17/24 13:08 Naloxone 0.4 Mg/Ml 1 Ml Vial IV Q2M PRN Opioid Reversal Nystatin 1 applic 11/18/24 09:00 11/23/24 09:44 Nystatin 100,000 Unit/Gm Powd 15 Gm TOPICAL 1 applic BID CHERISE Administration Protocol Pantoprazole Sodium 40 mg 11/18/24 09:00 11/23/24 09:44 Pantoprazole 40 Mg/10 Ml Vial IV 40 mg DAILY CHERISE Administration Sodium Bicarbonate 650 mg 11/19/24 16:00 11/23/24 09:44 Sodium Bicarbonate Tab 650 Mg Tab PO 650 mg TID CHERISE Administration Objective - Vital Signs Vital signs: Vital Signs Temp 97.4 F L 11/23/24 07:38 Pulse 84 11/23/24 10:55 Resp 18 11/23/24 10:55 BP 101/55 11/23/24 10:55 Pulse Ox 93 L 11/23/24 10:55 FiO2 Intake & Output 11/22/24 11/23/24 11/23/24 18:59 06:59 18:59 Intake Total 270.0 100 218 Output Total 705 500 Balance -435.0 -400 218 Intake: IV 170.0 Cefepime 1 gm In Sodium 50.0 Chloride 0.9% 50 ml @ 12. 5 mls/hr IVPB Q12H CHERISE Rx #:[id number] DAPTOmycin 450 mg In 50 Sodium Chloride 0.9% 50 ml @ 100 mls/hr IVPB Q48H CHERISE Rx#:[id number] Sodium Chloride 0.9% 1, 70 000 ml @ 10 mls/hr IV . Q24H [facility]ERISE Rx#:[id number] Intake, IV Titration 100 100 Amount Furosemide 100 mg In 100 100 Sodium Chloride 0.9% 90 ml @ 10 MG/HR 10 mls/hr IV .Q10H CHERISE Rx#: [id number] Oral 218 Output: Urine 705 500 Other: Voiding Method Indwelling Catheter Indwelling Catheter Indwelling Catheter - Exam -GENERAL: The patient is alert, confused and drowsy, not in any acute distress. Well developed, well nourished. Obese HEENT: Pupils are round and equally reacting to light. EOMI. No scleral icterus. No conjunctival pallor. Normocephalic, atraumatic. No pharyngeal erythema. No thyromegaly. CARDIOVASCULAR: S1 and S2 present. No murmurs, rubs, or gallops. PULMONARY: Chest is clear to auscultation, no wheezing , no crackles. ABDOMEN: Soft, nontender, nondistended, normoactive bowel sounds. No palpable organomegaly. MUSCULOSKELETAL: No joint swelling or deformity. EXTREMITIES: No cyanosis, clubbing, or pedal edema. NEUROLOGICAL: Gross neurological examination did not reveal any focal deficits. SKIN: No rashes. no petechiae. - Labs CBC & Chem 7: 11/23/24 06:15 11/23/24 06:15 Labs: Abnormal Lab Results - Last 24 Hours (Table) 11/22/24 11/22/24 11/23/24 Range/Units 16:09 20:09 05:59 WBC (4.50-10.00) 10*3/uL RBC (4.10-5.20) 10*6/uL Hgb (12.0-15.0) g/dL Hct (37.2-46.3) % MCH (27.0-32.0) pg MCHC (32.0-37.0) g/dL BUN (7-17) mg/dL Creatinine (0.52-1.04) mg/dL Glucose (74-99) mg/dL POC Glucose (mg/dL) 241 H 188 H 169 H (70-110) mg/dL 11/23/24 11/23/24 11/23/24 Range/Units 06:15 06:15 11:26 WBC 11.30 H (4.50-10.00) 10*3/uL RBC 3.26 L (4.10-5.20) 10*6/uL Hgb 8.6 L (12.0-15.0) g/dL Hct 28.7 L (37.2-46.3) % MCH 26.4 L (27.0-32.0) pg MCHC 30.0 L (32.0-37.0) g/dL BUN 70 H (7-17) mg/dL Creatinine 1.24 H (0.52-1.04) mg/dL Glucose 172 H (74-99) mg/dL POC Glucose (mg/dL) 265 H (70-110) mg/dL Microbiology - Last 24 Hours (Table) 11/21/24 05:17 Blood Culture - Preliminary Blood Assessment and Plan Assessment: Severe sepsis, status post septic shock, secondary to infection from the leg wounds, vertebral osteomyelitis, unknown whether patient actually had UTI on admission, Acute febrile illness, with bacteremia noted on 11/17/2024, 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, Pseudomonas aeruginosa, Proteus MirabellisHistory of MRSA bacteremia, SILVIANO done on 08/10/2024 did not show any vegetation Acute non-ST elevation WI Ischemic cardiomyopathy low ejection fraction, remains on Lasix drip Acute kidney injury History of implanted AICD/pacemaker History of coronary artery disease with previous CABG History of hypertension History of hyperlipidemia Diabetes mellitus, type II Acute kidney injury Hyperkalemia History of RSV tracheobronchitis July, Chronic normocytic, normochromic anemia Dementia Plan: Monitor vital signs Monitor CBC Monitor CMP Continue telemetry monitoring Follow-up on blood culture Strict I's and O's, daily weights Continue IV Lasix drip Currently off Levophed/pressor Currently on daptomycin and cefepime ID following Cardiology following Critical care following Labs and medication were reviewed.. Continue same treatment. Monitor labs and vitals. DVT and GI prophylaxis. Further recommendations as per clinical course of the patient
--- NOTE | 2024-11-23 14:25 | P.PN ---
Subjective Progress Note Date: 11/23/24 Principal diagnosis: Septic shock. Patient is 84-year-old female sent in by EMS from her longterm, [facility], yesterday after being noted to be confused, lethargic, with low blood pressures. She was tachycardic with a temperature of 100.8 F. Concerns for sepsis. On arrival, she was hypotensive, fluid resuscitated with a total of 3 L crystalloid fluid. Norepinephrine was started as the blood pressure did not respond to fluid alone. Started on a combination of cefepime and vancomycin for broad- spectrum antibiotic coverage. Serial troponins were elevated, and patient was also diagnosed with acute non-ST elevation [place] and started on IV heparin per protocol. 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 Of note, had a recent hospitalization back in July, for sepsis and CHF exacerbation. MRSA was isolated in her blood. SILVIANO done on 08/10/2024 did not show any vegetation. There was a severely red uced left ventricular ejection fraction of 30 to 35%, moderate mitral and tricuspid regurgitation with severe pulmonary hypertension. Mild to moderate aortic regurgitation. Treated with IV antibiotics. She also has history of ischemic cardiomyopathy, biventricular AICD, previous CABG, hypertension, hyperlipidemia, diabetes mellitus type 2, dementia, among other debilitating comorbidities. Workup in the emergency department including chest x-ray showing stable pulmonary vascular congestion with scattered infiltrates and small effusions suggestive of congestive heart failure. X-ray left foot with soft tissue wound over the heel without evidence of osseous erosion. Urinalysis was positive for pyuria and bacteria. CBC with a WBC count of 13.4, hemoglobin 9.3, platelets 439. CMP: Sodium 132, potassium 5.7, chloride 98, serum bicarb 21, BUN 76, creatinine 1.35, glucose 219. LFTs mildly elevated. Troponins elevated at 1.11, 2.2, 4.3, and 5.5 respectively. EKG showing a ventricularly paced rhythm. IV heparin continues per protocol. VBG with a pCO2 of 39 and pH of 7.38. Viral 4 Plex negative for influenza A/B, RSV, COVID of note, on her previous hospitalization in July was positive for RSV. Currently, patient is being observed in the intensive care unit. She is currently awake and alert. She is oriented to self and place. Does not recall events prior to coming to the hospital. I am told this could be her baseline. She does have dementia and takes Aricept at the longterm. Denies any chest pain. IV heparin continues per protocol. Blood pressure is being supported with norepinephrine which is infusing at 0.04 mcg/kg/min. Previously febrile with a Tmax of 101.9 F, and this is down and currently normothermic. Urinary catheter was placed which is draining clear urine. Normal saline to be started at 50 mL/h. pancultures are pending. Patient previously complaining of neck pain, however, denies this to me. She has a CT of the neck and chest ordered. No respiratory distress or stridor. On room air. Patient was seen today on 11/19/2024, remains in the ICU, patient is still requiring norepinephrine at 0.13 mcg/kg/min, she received significant amount of fluid boluses, patient is known to have history of severe LV dysfunction and history of congestive heart failure, hence we cut back on her fluids, patient was not making significant urine output yesterday in spite of all the fluids given and in spite of Lasix IV push, hence I recommended patient going on dobutamine at 2.5 mcg/kg/min, I recommended a Lasix drip at 20 mg/h. Patient did quite well with the infusion of Lasix and dobutamine. Her urine output has been excellent while on Lasix, she is on 2 L nasal cannula, does not seem to be uncomfortable. For her non-ST elevation myocardial infarction, patient remains on heparin, she had abnormal troponins, patient is again noted to have history of severe ischemic cardiomyopathy and previous AICD placement. Considering the overall picture, at this point the patient is an absolute contraindication to any cervical surgery. WBC count is 14.3 hemoglobin 9.1 electrolytes are normal renal profile is normal BUN is 95 creatinine 1.88 bicarb is 14. Patient will be placed on oral bicarb for now. Patient was seen today on 11/20/2024, patient remains in the ICU, remains unstable, still requiring norepinephrine at 0.05 mcg/kg/min she was on Dobutrex at 5 mcg/kg/min however she developed tachyarrhythmia and had to go down to 2.5 mg/kg/min, continues to have now frequent PVCs, I recommended stopping the dobutamine altogether. Patient is still on Lasix at 20 mg/h and I cut it down to 10 mg/h. Her cultures have all been reviewed, patient had positive blood cultures on 11/17 showing MRSA in the blood, her wound cultures showed Proteus mirabilis Pseudomonas Klebsiella and corynebacterium stratum her left leg wound culture showed MRSA and Proteus mirabilis. So obviously the patient is a great set up for sepsis and septic shock as she presented with. Not to mention the patient has severe cardiomyopathy and LV dysfunction. She had previous AICD placement. Still believe the patient has absolute contraindication to surgery, and I will not clear the patient for surgery at this point in time as it is extremely risky and possibly fatal. Patient has multiple comorbidities which makes surgery at this point and absolute current indication remember patient is not hemodynamically stable and her presentation was a presentation of sepsis and septic shock. WBC count is 12.1 hemoglobin 9.1 electrolytes are normal BUN is 87 creatinine 1.40 PTT is 50. Blood sugar is 222. Chest x-ray yesterday showed cardiomegaly, right pleural effusion, right basilar consolidation, and pulmonary vascular congestion consistent with congestive heart failure. Patient was seen today on 11/21/2024, patient remains in the ICU, still requiring norepinephrine at 0.07 mcg/kg/min she is off dobutamine yesterday, remains on Lasix drip at 10 mg/h. Urine output is fair, she had a negative balance of 500 cc over the last 24 hours. Patient remains on daptomycin and cefepime, remains on heparin, this is being addressed by cardiology on the case. May have to consider oral anticoagulation therapy. Patient herself is not in any distress, she is not symptomatic, her WBC count is 11 hemoglobin 9 her PTT is therapeutic 56 electrolytes are normal BUN is 78 creatinine is lower today 1.25. Chest x- ray continues to show evidence of pulmonary edema and cardiomegaly. Patient is only on 2 L nasal cannula and O2 saturation ranging between 96 to 100% Patient was seen today on 11/22/2024, patient is in the ICU, off norepinephrine for the last 10 hours. Patient is on 2 L nasal cannula, remains on Lasix drip at 10 mg/h. She is off inotropes of pressors, chest x-ray not done today however her chest x-ray yesterday showed interstitial edema. Clinically the patient is doing better than expected considering her cardiomyopathy and LV dysfunction and considering her initial presentation. WBC is 11.0 hemoglobin 9.3 electrolytes are normal renal profile showed improvement with BUN of 76 creatinine 1.21 Progress note dated November 23, 2024. The patient is seen today in room 368. Currently, she is recovering from an episode of septic shock, and respiratory failure. She was in the intensive care unit, but has been moved out to the floor. She is currently on room air. She is getting Lasix at 10 mg an hour, saline at 10 cc an hour. She continues on daptomycin and Maxipime. She has left leg wounds, with multiple abnormal culture data. Current labs include white count 11.3, hemoglobin 8.6, hematocrit 28.7, and a platelet count of 323,000. Sodium 138, potassium 4.3, chloride 105, CO2 23, BUN 70, creatinine 1.24. Glucose is 265. Calcium is 9.1. Culture of the left leg, reveals evidence of MRSA, Proteus, Pseudomonas, Klebsiella, among other bacteria. Objective - Vital Signs Vital signs: Vital Signs Temp 97.4 F L 11/23/24 07:38 Pulse 84 11/23/24 13:30 Resp 18 11/23/24 13:30 BP 97/46 11/23/24 13:32 Pulse Ox 93 L 11/23/24 10:55 FiO2 Intake & Output 11/22/24 11/23/24 11/23/24 18:59 06:59 18:59 Intake Total 270.0 100 218 Output Total 705 500 220 Balance -435.0 -400 -2 Intake: IV 170.0 Cefepime 1 gm In Sodium 50.0 Chloride 0.9% 50 ml @ 12. 5 mls/hr IVPB Q12H CHERISE Rx #:[id number] DAPTOmycin 450 mg In 50 Sodium Chloride 0.9% 50 ml @ 100 mls/hr IVPB Q48H CHERISE Rx#:[id number] Sodium Chloride 0.9% 1, 70 000 ml @ 10 mls/hr IV . Q24H CHERISE Rx#:[id number] Intake, IV Titration 100 100 Amount Furosemide 100 mg In 100 100 Sodium Chloride 0.9% 90 ml @ 10 MG/HR 10 mls/hr IV .Q10H CHERISE Rx#: [id number] Oral 218 Output: Urine 705 500 220 Other: Voiding Method Indwelling Catheter Indwelling Catheter Indwelling Catheter - Exam No acute distress, oriented 3. The patient continues on room air. HEENT examination is grossly unremarkable. Mucous membranes are moist. No oral lesions. Neck supple. Full range of motion. No adenopathy thyromegaly or neck vein distention. Cardiovascular examination reveals regular rhythm rate. S1-S2 normal. No S3 or S4. No discernible murmur noted. Lungs reveal basilar crackles. No rhonchi. No wheezes. Breath sounds are equal bilaterally. Abdomen soft bowel sounds are heard. No masses or tenderness. Extremities are intact. No cyanosis or clubbing. Mild edema present. Skin is without rash or lesion. Neurologic examination is brief but nonfocal. - Labs CBC & Chem 7: 11/23/24 06:15 11/23/24 06:15 Labs: Abnormal Lab Results - Last 24 Hours (Table) 11/22/24 11/22/24 11/23/24 Range/Units 16:09 20:09 05:59 WBC (4.50-10.00) 10*3/uL RBC (4.10-5.20) 10*6/uL Hgb (12.0-15.0) g/dL Hct (37.2-46.3) % MCH (27.0-32.0) pg MCHC (32.0-37.0) g/dL BUN (7-17) mg/dL Creatinine (0.52-1.04) mg/dL Glucose (74-99) mg/dL POC Glucose (mg/dL) 241 H 188 H 169 H (70-110) mg/dL 11/23/24 11/23/24 11/23/24 Range/Units 06:15 06:15 11:26 WBC 11.30 H (4.50-10.00) 10*3/uL RBC 3.26 L (4.10-5.20) 10*6/uL Hgb 8.6 L (12.0-15.0) g/dL Hct 28.7 L (37.2-46.3) % MCH 26.4 L (27.0-32.0) pg MCHC 30.0 L (32.0-37.0) g/dL BUN 70 H (7-17) mg/dL Creatinine 1.24 H (0.52-1.04) mg/dL Glucose 172 H (74-99) mg/dL POC Glucose (mg/dL) 265 H (70-110) mg/dL Microbiology - Last 24 Hours (Table) 11/21/24 05:17 Blood Culture - Preliminary Blood Assessment and Plan Assessment: Sepsis, with septic shock, previously on norepinephrine, which has now been weaned off. Acute febrile illness with bacteremia, with underlying sepsis/septic shock. Chronic left leg/heel wound, with multiple bacteria, including Pseudomonas, Proteus, MRSA, etc. Cardiomyopathy, with an ejection fraction of 30 to 35%, and evidence of valvular heart disease. Severe pulmonary hypertension. Ischemic cardiomyopathy. Acute non-ST segment elevation myocardial infarction. Status post AICD/pacemaker implantation. History of CAD with previous CABG. History of hypertension. History of hyperlipidemia. Type 2 diabetes mellitus. Acute kidney injury. Hyperkalemia. History of RSV tracheobronchitis, July 2024. Chronic normocytic/normochromic anemia. History of dementia. Plan: Plan dated November 23, 2024. The patient is seen today in room 368. The patient's daughter is in the room. The patient has been at [facility], for at least 2 years, and the plan is for her to go back tomorrow with. She continues on daptomycin and Maxipime. She has multiple left leg and heel wounds. Currently, she is on Lasix at 10 mg an hour, and saline at 10 cc an hour. She is on room air. She is a DO NOT RESUSCITATE patient. Labs, x-rays, and all medications are reviewed. We will continue to follow the patient, make recommendations. Prognosis is poor. Dictation was produced using [employer] software. Please excuse any grammatical, word or spelling errors. Time with Patient: Less than 30
[2024-11-23 16:28] LABS: Glucose,Whole Blood 333 mg/dL (70-110)
[2024-11-23 18:43] LABS: Glucose,Whole Blood 327 mg/dL (70-110)
[2024-11-23] MEDS: SODIUM CHLORIDE 0.9% 500 ML 500 ML IV ONE (18:53)
[2024-11-23 20:01] LABS: Glucose,Whole Blood 335 mg/dL (70-110)
[2024-11-23] MEDS: FUROSEMIDE 10 MG/ML 4 ML VIAL IV SCH (23:14)
[2024-11-24 05:39] LABS: Glucose,Whole Blood 167 mg/dL (70-110)
[2024-11-24 06:17] LABS: Glucose,Whole Blood 163 mg/dL (70-110)
--- NOTE | 2024-11-24 10:33 | P.PN ---
Subjective Patient is 84-year-old female sent in by EMS from her senior care, [facility], after being noted to be confused, lethargic, with low blood pressures. She was tachycardic with a temperature of 100.8 F. Concerns for sepsis. On arrival, she was hypotensive, fluid resuscitated with a total of 3 L crystalloid fluid. Norepinephrine was started as the blood pressure did not respond to fluid alone. Started on a combination of cefepime and vancomycin for broad-spectrum antibiotic coverage. Serial troponins were elevated, and patient was also diag nosed with acute non-ST elevation UT and started on IV heparin per protocol. 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 Of note, had a recent hospitalization back in July, for sepsis and CHF exacerbation. MRSA was isolated in her blood. SILVIANO done on 08/10/2024 did not show any vegetation. There was a severely reduced left ventricular ejection fraction of 30 to 35%, moderate mitral and tricuspid regurgitation with severe pulmonary hypertension. Mild to moderate aortic regurgitation. Treated with IV antibiotics. She also has history of ischemic cardiomyopathy, biventricular AICD, previous CABG, hypertension, hyperlipidemia, diabetes mellitus type 2, dementia, among other debilitating comorbidities. Workup in the emergency department including chest x-ray showing stable pulmonary vascular congestion with scattered infiltrates and small effusions suggestive of congestive heart failure. X-ray left foot with soft t issue wound over the heel without evidence of osseous erosion. Urinalysis was positive for pyuria and bacteria. CBC with a WBC count of 13.4, hemoglobin 9.3, platelets 439. CMP: Sodium 132, potassium 5.7, chloride 98, serum bicarb 21, BUN 76, creatinine 1.35, glucose 219. LFTs mildly elevated. Troponins elevated at 1.11, 2.2, 4.3, and 5.5 respectively. EKG showing a ventricularly paced rhythm. IV heparin continues per protocol. VBG with a pCO2 of 39 and pH of 7.38. Viral 4 Plex negative for influenza A/B, RSV, COVID of note, on her previous hospitalization in July was positive for RSV. Currently, patient is being observed in the intensive care unit. She is currently awake and alert. She is oriented to self and place. Does not recall events prior to coming to the hospital. I am told this could be her baseline. She does have dementia and takes Aricept at the senior care. Denies any chest pain. IV heparin continues per protocol. Blood pressure is being supported with norepinephrine which is infusing at 0.04 mcg/kg/min. Previously febrile with a Tmax of 101.9 F, and this is down and currently normothermic. Urinary catheter was placed which is draining clear urine. Normal saline to be started at 50 mL/h. pancultures are pending. Patient previously complaining of neck pain, however, denies this to me. She has a CT of the neck and chest ordered. No respiratory distress or stridor 11/21. Patient seen and examined.Labs reviewed showing WBC 9.03, hemoglobin 9, platelet count 428, sodium 137, potassium 4.4, BUN 78, creatinine 1.25. Currently on IV Levophed which is being weaned down. Currently on IV cefepime, daptomycin and Lasix drip. Complaining of leg pain. 11/22/2024 Patient remains on norepinephrine. Chest x-ray from yesterday showed interstitial edema no x-ray was done today. Patient audelia on IV Lasix drip. White count continues to improve and improved to 11 from 12 creatinine remained stable at 1.2. Patient is having good urine output REVIEW OF SYSTEMS: CONSTITUTIONAL: No fever, no malaise,. CARDIOVASCULAR: No chest pain, no palpitations, no syncope. PULMONARY: No shortness of breath, no cough, GASTROINTESTINAL: No diarrhea, no nausea, no vomiting, no abdominal pain. NEUROLOGICAL: No headaches, no weakness, 11/23 Patient currently in 368 She is awake but drowsy also she is confused cannot contribute much to the history this morning, probably also part of her delirium Patient herself denies any specific complaints Patient remains tachycardic with heart rate jumps to 103, blood pressure 102/60. Patient is afebrile and breathing at a rate of 18 to 20/min Labs reviewed, patient has stable leukocytosis 11.3 and hemoglobin 8.6 Creatinine 1.24, which is stable since admission compared to baseline 0.8-1.0 Patient remains on IV cefepime and daptomycin and Lasix drip 11/24 Patient still very lethargic and tired Somewhat tachypneic Dressing in the left leg is in place with some oozing Daughter at bedside Patient supposedly still getting IV Lasix 10 mg/h and broad-spectrum antibiotic with cefepime and daptomycin Objective - Vital Signs Vital signs: Vital Signs Temp 97.4 F L 11/24/24 04:00 Pulse 96 11/24/24 04:00 Resp 24 11/24/24 04:00 BP 103/70 11/24/24 04:00 Pulse Ox 99 11/24/24 04:00 FiO2 Intake & Output 11/23/24 11/24/24 11/24/24 18:59 06:59 18:59 Intake Total 218 Output Total 220 100 Balance -2 -100 Weight 72.3 kg 68 kg Intake: Oral 218 Output: Urine 220 100 Other: Voiding Method Indwelling Catheter Indwelling Catheter - Exam -GENERAL: The patient is alert, confused and drowsy, not in any acute distress. Well developed, well nourished. Obese HEENT: Pupils are round and equally reacting to light. EOMI. No scleral icterus. No conjunctival pallor. Normocephalic, atraumatic. No pharyngeal erythema. No thyromegaly. CARDIOVASCULAR: S1 and S2 present. No murmurs, rubs, or gallops. PULMONARY: Chest is clear to auscultation, no wheezing , no crackles. ABDOMEN: Soft, nontender, nondistended, normoactive bowel sounds. No palpable organomegaly. MUSCULOSKELETAL: No joint swelling or deformity. EXTREMITIES: No cyanosis, clubbing, or pedal edema. NEUROLOGICAL: Gross neurological examination did not reveal any focal deficits. SKIN: No rashes. no petechiae. - Labs CBC & Chem 7: 11/23/24 06:15 11/23/24 06:15 Labs: Abnormal Lab Results - Last 24 Hours (Table) 11/23/24 11/23/24 11/23/24 Range/Units 11:26 16:27 18:41 POC Glucose (mg/dL) 265 H 333 H 327 H (70-110) mg/dL 11/23/24 11/24/24 11/24/24 Range/Units 20:00 05:37 06:16 POC Glucose (mg/dL) 335 H 167 H 163 H (70-110) mg/dL Microbiology - Last 24 Hours (Table) 11/21/24 05:17 Blood Culture - Preliminary Blood Assessment and Plan Assessment: Severe sepsis, status post septic shock, secondary to infection from the leg wounds, vertebral osteomyelitis, unknown whether patient actually had UTI on admission, Acute febrile illness, with bacteremia noted on 11/17/2024, 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, Pseudomonas aeruginosa, Proteus MirabellisHistory of MRSA bacteremia, SILVIANO done on 08/10/2024 did not show any vegetation Acute non-ST elevation UT Ischemic cardiomyopathy low ejection fraction, remains on Lasix drip Acute kidney injury History of implanted AICD/pacemaker History of coronary artery disease with previous CABG History of hypertension History of hyperlipidemia Diabetes mellitus, type II Acute kidney injury Hyperkalemia History of RSV tracheobronchitis July, Chronic normocytic, normochromic anemia Dementia Plan: Monitor vital signs Monitor CBC Monitor CMP Continue telemetry monitoring Follow-up on blood culture Strict I's and O's, daily weights Continue IV Lasix drip Currently off Levophed/pressor Currently on daptomycin and cefepime ID following Cardiology following Critical care following Labs and medication were reviewed.. Continue same treatment. Monitor labs and vitals. DVT and GI prophylaxis. Further recommendations as per clinical course of the patient
[2024-11-24 11:37] LABS: Glucose,Whole Blood 176 mg/dL (70-110)
--- NOTE | 2024-11-24 14:15 | P.PN ---
Subjective Progress Note Date: 11/24/24 Principal diagnosis: Septic shock. Patient is 84-year-old female sent in by EMS from her chcf, [facility], yesterday after being noted to be confused, lethargic, with low blood pressures. She was tachycardic with a temperature of 100.8 F. Concerns for sepsis. On arrival, she was hypotensive, fluid resuscitated with a total of 3 L crystalloid fluid. Norepinephrine was started as the blood pressure did not respond to fluid alone. Started on a combination of cefepime and vancomycin for broad- spectrum antibiotic coverage. Serial troponins were elevated, and patient was also diagnosed with acute non-ST elevation NH and started on IV heparin per protocol. 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 Of note, had a recent hospitalization back in July, for sepsis and CHF exacerbation. MRSA was isolated in her blood. SILVIANO done on 08/10/2024 did not show any vegetation. There was a severely red uced left ventricular ejection fraction of 30 to 35%, moderate mitral and tricuspid regurgitation with severe pulmonary hypertension. Mild to moderate aortic regurgitation. Treated with IV antibiotics. She also has history of ischemic cardiomyopathy, biventricular AICD, previous CABG, hypertension, hyperlipidemia, diabetes mellitus type 2, dementia, among other debilitating comorbidities. Workup in the emergency department including chest x-ray showing stable pulmonary vascular congestion with scattered infiltrates and small effusions suggestive of congestive heart failure. X-ray left foot with soft tissue wound over the heel without evidence of osseous erosion. Urinalysis was positive for pyuria and bacteria. CBC with a WBC count of 13.4, hemoglobin 9.3, platelets 439. CMP: Sodium 132, potassium 5.7, chloride 98, serum bicarb 21, BUN 76, creatinine 1.35, glucose 219. LFTs mildly elevated. Troponins elevated at 1.11, 2.2, 4.3, and 5.5 respectively. EKG showing a ventricularly paced rhythm. IV heparin continues per protocol. VBG with a pCO2 of 39 and pH of 7.38. Viral 4 Plex negative for influenza A/B, RSV, COVID of note, on her previous hospitalization in July was positive for RSV. Currently, patient is being observed in the intensive care unit. She is currently awake and alert. She is oriented to self and place. Does not recall events prior to coming to the hospital. I am told this could be her baseline. She does have dementia and takes Aricept at the [facility]. Denies any chest pain. IV heparin continues per protocol. Blood pressure is being supported with norepinephrine which is infusing at 0.04 mcg/kg/min. Previously febrile with a Tmax of 101.9 F, and this is down and currently normothermic. Urinary catheter was placed which is draining clear urine. Normal saline to be started at 50 mL/h. pancultures are pending. Patient previously complaining of neck pain, however, denies this to me. She has a CT of the neck and chest ordered. No respiratory distress or stridor. On room air. Patient was seen today on 11/19/2024, remains in the ICU, patient is still requiring norepinephrine at 0.13 mcg/kg/min, she received significant amount of fluid boluses, patient is known to have history of severe LV dysfunction and history of congestive heart failure, hence we cut back on her fluids, patient was not making significant urine output yesterday in spite of all the fluids given and in spite of Lasix IV push, hence I recommended patient going on dobutamine at 2.5 mcg/kg/min, I recommended a Lasix drip at 20 mg/h. Patient did quite well with the infusion of Lasix and dobutamine. Her urine output has been excellent while on Lasix, she is on 2 L nasal cannula, does not seem to be uncomfortable. For her non-ST elevation myocardial infarction, patient remains on heparin, she had abnormal troponins, patient is again noted to have history of severe ischemic cardiomyopathy and previous AICD placement. Considering the overall picture, at this point the patient is an absolute contraindication to any cervical surgery. WBC count is 14.3 hemoglobin 9.1 electrolytes are normal renal profile is normal BUN is 95 creatinine 1.88 bicarb is 14. Patient will be placed on oral bicarb for now. Patient was seen today on 11/20/2024, patient remains in the ICU, remains unstable, still requiring norepinephrine at 0.05 mcg/kg/min she was on Dobutrex at 5 mcg/kg/min however she developed tachyarrhythmia and had to go down to 2.5 mg/kg/min, continues to have now frequent PVCs, I recommended stopping the dobutamine altogether. Patient is still on Lasix at 20 mg/h and I cut it down to 10 mg/h. Her cultures have all been reviewed, patient had positive blood cultures on 11/17 showing MRSA in the blood, her wound cultures showed Proteus mirabilis Pseudomonas Klebsiella and corynebacterium stratum her left leg wound culture showed MRSA and Proteus mirabilis. So obviously the patient is a great set up for sepsis and septic shock as she presented with. Not to mention the patient has severe cardiomyopathy and LV dysfunction. She had previous AICD placement. Still believe the patient has absolute contraindication to surgery, and I will not clear the patient for surgery at this point in time as it is extremely risky and possibly fatal. Patient has multiple comorbidities which makes surgery at this point and absolute current indication remember patient is not hemodynamically stable and her presentation was a presentation of sepsis and septic shock. WBC count is 12.1 hemoglobin 9.1 electrolytes are normal BUN is 87 creatinine 1.40 PTT is 50. Blood sugar is 222. Chest x-ray yesterday showed cardiomegaly, right pleural effusion, right basilar consolidation, and pulmonary vascular congestion consistent with congestive heart failure. Patient was seen today on 11/21/2024, patient remains in the ICU, still requiring norepinephrine at 0.07 mcg/kg/min she is off dobutamine yesterday, remains on Lasix drip at 10 mg/h. Urine output is fair, she had a negative balance of 500 cc over the last 24 hours. Patient remains on daptomycin and cefepime, remains on heparin, this is being addressed by cardiology on the case. May have to consider oral anticoagulation therapy. Patient herself is not in any distress, she is not symptomatic, her WBC count is 11 hemoglobin 9 her PTT is therapeutic 56 electrolytes are normal BUN is 78 creatinine is lower today 1.25. Chest x- ray continues to show evidence of pulmonary edema and cardiomegaly. Patient is only on 2 L nasal cannula and O2 saturation ranging between 96 to 100% Patient was seen today on 11/22/2024, patient is in the ICU, off norepinephrine for the last 10 hours. Patient is on 2 L nasal cannula, remains on Lasix drip at 10 mg/h. She is off inotropes of pressors, chest x-ray not done today however her chest x-ray yesterday showed interstitial edema. Clinically the patient is doing better than expected considering her cardiomyopathy and LV dysfunction and considering her initial presentation. WBC is 11.0 hemoglobin 9.3 electrolytes are normal renal profile showed improvement with BUN of 76 creatinine 1.21 Progress note dated November 23, 2024. The patient is seen today in room 368. Currently, she is recovering from an episode of septic shock, and respiratory failure. She was in the intensive care unit, but has been moved out to the floor. She is currently on room air. She is getting Lasix at 10 mg an hour, saline at 10 cc an hour. She continues on daptomycin and Maxipime. She has left leg wounds, with multiple abnormal culture data. Current labs include white count 11.3, hemoglobin 8.6, hematocrit 28.7, and a platelet count of 323,000. Sodium 138, potassium 4.3, chloride 105, CO2 23, BUN 70, creatinine 1.24. Glucose is 265. Calcium is 9.1. Culture of the left leg, reveals evidence of MRSA, Proteus, Pseudomonas, Klebsiella, among other bacteria. Progress note dated November 24, 2024. 84-year-old female seen today in room 368. She continues on oxygen, by nasal cannula at 2 L. She continues on cefepime and daptomycin. Her saturations are 99%. The patient is getting saline at 10 cc an hour. Current labs, include only a glucose of 176. Left leg wound, showed evidence of methicillin-resistant Staph aureus, Proteus mirabilis, Pseudomonas aeruginosa, and Klebsiella species. No recent chest x-ray to report. Objective - Vital Signs Vital signs: Vital Signs Temp 97.8 F 11/24/24 07:54 Pulse 101 H 11/24/24 12:00 Resp 18 11/24/24 12:00 BP 115/74 11/24/24 12:00 Pulse Ox 97 11/24/24 12:00 FiO2 Intake & Output 11/23/24 11/24/24 11/24/24 18:59 06:59 18:59 Intake Total 218 Output Total 220 100 Balance -2 -100 Weight 72.3 kg 68 kg Intake: Oral 218 Output: Urine 220 100 Other: Voiding Method Indwelling Catheter Indwelling Catheter Indwelling Catheter - Exam No acute distress, oriented 3. The patient continues on 2 L nasal cannula. HEENT examination is grossly unremarkable. Mucous membranes are moist. No oral lesions. Neck supple. Full range of motion. No adenopathy thyromegaly or neck vein distention. Cardiovascular examination reveals regular rhythm rate. S1-S2 normal. No S3 or S4. No discernible murmur noted. Lungs reveal basilar crackles. No rhonchi. No wheezes. Breath sounds are equal bilaterally. Abdomen soft bowel sounds are heard. No masses or tenderness. Extremities are intact. No cyanosis or clubbing. Mild edema present. Skin is without rash or lesion. Neurologic examination is brief but nonfocal. - Labs CBC & Chem 7: 11/23/24 06:15 11/23/24 06:15 Labs: Abnormal Lab Results - Last 24 Hours (Table) 11/23/24 11/23/24 11/23/24 Range/Units 16:27 18:41 20:00 POC Glucose (mg/dL) 333 H 327 H 335 H (70-110) mg/dL 11/24/24 11/24/24 11/24/24 Range/Units 05:37 06:16 11:35 POC Glucose (mg/dL) 167 H 163 H 176 H (70-110) mg/dL Microbiology - Last 24 Hours (Table) 11/21/24 05:17 Blood Culture - Preliminary Blood Assessment and Plan Assessment: Sepsis, with septic shock, previously on norepinephrine. Acute febrile illness with bacteremia, with underlying sepsis/septic shock. Chronic left leg/heel wound, with multiple bacteria, including Pseudomonas, Proteus, MRSA, etc. Cardiomyopathy, with an ejection fraction of 30 to 35%, and evidence of valvular heart disease. Severe pulmonary hypertension. Ischemic cardiomyopathy. Acute non-ST segment elevation myocardial infarction. Status post AICD/pacemaker implantation. History of CAD with previous CABG. History of hypertension. History of hyperlipidemia. Type 2 diabetes mellitus. Acute kidney injury. Hyperkalemia. History of RSV tracheobronchitis, July 2024. Chronic normocytic/normochromic anemia. History of dementia. Plan: Plan dated November 23, 2024. The patient is seen today in room 368. The patient's daughter is in the room. The patient has been at [facility], for at least 2 years, and the plan is for her to go back tomorrow with. She continues on daptomycin and Maxipime. She has multiple left leg and heel wounds. Currently, she is on Lasix at 10 mg an hour, and saline at 10 cc an hour. She is on room air. She is a DO NOT RESUSCITATE patient. Labs, x-rays, and all medications are reviewed. We will continue to follow the patient, make recommendations. Prognosis is poor. Dictation was produced using [employer] software. Please excuse any grammatical, word or spelling errors. Plan dated November 24, 2024. The patient is seen today in room 368. Family members are in the room. The patient has been at [facility] for at least 2 years, and the plan is for her to go back tomorrow with. The patient continues on cefepime, and daptomycin. Left leg wound, shows multiple bacteria as mentioned above. She is getting saline at 10 cc an hour, she is on 2 L of oxygen, with saturations of 99%. Labs, x-rays, and all medications are reviewed. The patient is a DO NOT RESUSCITATE patient. We will continue to follow. Prognosis is guarded. Dictation was produced using [employer] software. Please excuse any grammatical, word or spelling errors. Time with Patient: Less than 30
--- NOTE | 2024-11-24 14:36 | P.PN ---
Subjective Progress Note Date: 11/24/24 The patient is an 85-year-old female patient who is known to our service from before with a past medical history significant for CAD status post CABG as well as ischemic cardiomyopathy status post AICD and also hypertension and dyslipidemia and diabetes and multiple comorbid conditions including chronic a nemia. The patient is a resident at [facility]. She is somewhat poor historian. The patient was brought from the [facility] to the hospital because of low blood pressure associated with increasing in the shortness of breath and change in mental status. She was found to be hypoxic in the ER and she was admitted to the ICU and placed on oxygen. Also she was found to be hypotensive requiring norepinephrine to support her pressure. Also further evaluation was performed including troponin came to be abnormal. There is a concern about pulmonary embolism given the abnormal D-dimer and currently the patient is in process of having a CT scan of the chest. The EKG showed sinus with paced rhythm and also the patient is tachycardic and she is in mild hypoxic respiratory failure and mild respiratory distress. Hemodynamically she still unstable requiring small dose of norepinephrine. No symptoms of chest pain or chest discomfort beside the shortness of breath. The physical examination is remarkable for mild respiratory distress with regular rate and rhythm and distant heart sounds and soft systolic murmur and diminished breathing sounds bilaterally and mild bilateral lower extremities edema noted with the chest x-ray showed evidence of pulmonary vascular congestions. No NT proBNP was ordered. The troponin is definitely elevated and currently she is on heparin. She has resided at [facility] for 3 years. November 19, 2024 The patient was seen and evaluated this morning. She underwent an echo yesterday and that revealed severe cardiomyopathy with EF at 15%. She underwent a CT scan of the neck which showed osteomyelitis and she was seen by the surgical team with possible taking the patient to the OR. The patient is at very high risk at this stage given the severe cardiomyopathy and giving the ACS with elevated troponin on admission and giving the hypotension requiring norepinephrine and given the decompensated heart failure and currently she is on Lasix IV as well as dobutamine IV. Beside that the CT scan of the chest did not show any evidence of pulmonary embolism. The physical examination is remarkable for regular rhythm with heart rate in the 90s and systolic murmur at the right upper sternal border with diminished breathing sounds bilaterally and mild bilateral lower extremities edema. November 20, 2024 She awakens to voice. Answering some questions. She reports having pain in neck/shoulder. Dobutamine was discontinued, lasix decreased to 10mg. She remains on levophed. Family at bedside does not think she is back to baseline since July when she had pneumonia. November 21, 2024 Pt seen in ICU. Feels "a little better". She is still on levophed. WBC 11.03, Hgb 9.0, creat 1.25. No chest pain or pressure. Shortness of breath improved. November 22, 2024 Patient seen in ICU. She is off pressors. Continues on Lasix drip at 10. WBC 11.06, hemoglobin 9.3, creatinine 1.12. 11/23/2024 Patient was transferred out of ICU to stepdown floor today. She is off pressors, she is on Lasix drip. I will discontinue Lasix drip and start IV Lasix 40 twice daily. Her kidney function has continued to improve. Urine output is still on the low side. 11/24/2024 Seen and examined at bedside this a.m. She was transition from IV Lasix drip to Lasix 40 IV twice daily. Urine output has been minimal. She still has a subclavian dialysis catheter in place. PHYSICAL EXAMINATION: This is a 84-year-old female in no apparent distress at the time of my examination. HEENT: Head is atraumatic, normocephalic. Pupils are equal, round. Sclerae anicteric. Conjunctivae are clear. Mucous membranes of the mouth are moist. Neck is flexed forward in bed. There is no jugular venous distention. CHEST EXAMINATION: Lungs are diminished. On NC O2. No chest wall tenderness is noted on palpation or with deep breathing. HEART EXAMINATION: Heart regular rate and rhythm. S1, S2 heard. No gallops or rub. Distant heart sounds and soft systolic murmur ABDOMEN: Soft, nontender. Bowel sounds are heard. EXTREMITIES: 2+ peripheral pulses with no evidence of peripheral edema and no calf tenderness noted. NEUROLOGIC EXAMINATION: Patient awakens to voice, alert and oriented x3. Assessment Change in mental status which has improved Low blood pressure requiring norepinephrine Mild respiratory distress Abnormal D-dimer with no evidence of PE Abnormal troponin CAD status post CABG Ischemic cardiomyopathy, EF 10-15% Status post AICD Anuria Multiple comorbid conditions MRSA infection, multiple locations Plan Continue aspirin. Continue IV Lasix push 40 mg twice daily. Metoprolol 12.5 mg Consider nephrology consult The patient is at high risk for any surgical intervention at this point, long discussion with family regarding risks vs benefits. Would not recommend surgery at this time. Make consider further assessment when hemodydamically stable. Prognosis extremely guarded. We discussed the status of poor prognosis with the family. They understands and agrees with the plan of care. Objective - Vital Signs Vital signs: Vital Signs Temp 97.8 F 11/24/24 07:54 Pulse 101 H 11/24/24 12:00 Resp 18 11/24/24 12:00 BP 115/74 11/24/24 12:00 Pulse Ox 97 11/24/24 12:00 FiO2 Intake & Output 11/23/24 11/24/24 11/24/24 18:59 06:59 18:59 Intake Total 218 Output Total 220 100 Balance -2 -100 Weight 72.3 kg 68 kg Intake: Oral 218 Output: Urine 220 100 Other: Voiding Method Indwelling Catheter Indwelling Catheter Indwelling Catheter - Labs CBC & Chem 7: 11/23/24 06:15 11/23/24 06:15 Labs: Abnormal Lab Results - Last 24 Hours (Table) 11/23/24 11/23/24 11/23/24 Range/Units 16:27 18:41 20:00 POC Glucose (mg/dL) 333 H 327 H 335 H (70-110) mg/dL 11/24/24 11/24/24 11/24/24 Range/Units 05:37 06:16 11:35 POC Glucose (mg/dL) 167 H 163 H 176 H (70-110) mg/dL Microbiology - Last 24 Hours (Table) 11/21/24 05:17 Blood Culture - Preliminary Blood
--- NOTE | 2024-11-24 16:27 | P.PN ---
Subjective Progress Note Date: 11/23/24 Principal diagnosis: Reason for follow-up is left heel infected pressure ulcer and bacteremia Patient is a 84-year-old female with a past medical history significant for Coronary Artery Disease (CAD), Heart Failure, Dementia, Diabetes Mellitus, Hypertension, Myocardial Infarction ([place]), Pneumonia, Vascular Disorder, history of left heel infected pressure ulcer and residential resident patient has been sent to the from the residential as the patient was having mental status changes fever and elevated white count. On today's evaluation that is 11/23/2024, patient has been afebrile, patient is breathing comfortably and is currently on 2 L nasal oxygen, patient denies having any chest pain and cough, patient denies nausea vomiting or diarrhea and no abdominal pain or any worsening pain to the heel area. Patient white count is 11.30, creatinine is 1.24 blood with repeat currently pending Objective - Vital Signs Vital signs: Vital Signs Temp 97.4 F L 11/23/24 07:38 Pulse 84 11/23/24 10:55 Resp 18 11/23/24 10:55 BP 101/55 11/23/24 10:55 Pulse Ox 93 L 11/23/24 10:55 FiO2 Intake & Output 11/22/24 11/23/24 11/23/24 18:59 06:59 18:59 Intake Total 270.0 100 100 Output Total 705 500 Balance -435.0 -400 100 Intake: IV 170.0 Cefepime 1 gm In Sodium 50.0 Chloride 0.9% 50 ml @ 12. 5 mls/hr IVPB Q12H [facility] Rx #:[id number] DAPTOmycin 450 mg In 50 Sodium Chloride 0.9% 50 ml @ 100 mls/hr IVPB Q48H [facility] Rx#:[id number] Sodium Chloride 0.9% 1, 70 000 ml @ 10 mls/hr IV . Q24H [facility] Rx#:[id number] Intake, IV Titration 100 100 Amount Furosemide 100 mg In 100 100 Sodium Chloride 0.9% 90 ml @ 10 MG/HR 10 mls/hr IV .Q10H [facility] Rx#: [id number] Oral 100 Output: Urine 705 500 Other: Voiding Method Indwelling Catheter Indwelling Catheter Indwelling Catheter - Exam GENERAL DESCRIPTION: An elderly female lying in bed in no distress RESPIRATORY SYSTEM: Unlabored breathing , decreased breath sounds at bases HEART: S1 S2 regular rate and rhythm , ABDOMEN: Soft , no tenderness EXTREMITIES: Left wound is currently dressed - Labs CBC & Chem 7: 11/23/24 06:15 11/23/24 06:15 Labs: Abnormal Lab Results - Last 24 Hours (Table) 11/22/24 11/22/24 11/23/24 Range/Units 16:09 20:09 05:59 WBC (4.50-10.00) 10*3/uL RBC (4.10-5.20) 10*6/uL Hgb (12.0-15.0) g/dL Hct (37.2-46.3) % MCH (27.0-32.0) pg MCHC (32.0-37.0) g/dL BUN (7-17) mg/dL Creatinine (0.52-1.04) mg/dL Glucose (74-99) mg/dL POC Glucose (mg/dL) 241 H 188 H 169 H (70-110) mg/dL 11/23/24 11/23/24 11/23/24 Range/Units 06:15 06:15 11:26 WBC 11.30 H (4.50-10.00) 10*3/uL RBC 3.26 L (4.10-5.20) 10*6/uL Hgb 8.6 L (12.0-15.0) g/dL Hct 28.7 L (37.2-46.3) % MCH 26.4 L (27.0-32.0) pg MCHC 30.0 L (32.0-37.0) g/dL BUN 70 H (7-17) mg/dL Creatinine 1.24 H (0.52-1.04) mg/dL Glucose 172 H (74-99) mg/dL POC Glucose (mg/dL) 265 H (70-110) mg/dL Microbiology - Last 24 Hours (Table) 11/21/24 05:17 Blood Culture - Preliminary Blood Assessment and Plan (1) Non healing left heel wound Current Visit: Yes Status: Acute Code(s): S91.302A - UNSPECIFIED OPEN WOUND, LEFT FOOT, INITIAL ENCOUNTER SNOMED Code(s): 157877821 (2) Septic shock Current Visit: Yes Status: Acute Code(s): A41.9 - SEPSIS, UNSPECIFIED ORGANISM; R65.21 - SEVERE SEPSIS WITH SEPTIC SHOCK SNOMED Code(s): 84294257 (3) Urinary tract infection Current Visit: Yes Status: Acute Code(s): N39.0 - URINARY TRACT INFECTION, SITE NOT SPECIFIED SNOMED Code(s): 26131657 (4) Bacteremia Current Visit: Yes Status: Acute Code(s): R78.81 - BACTEREMIA SNOMED Code(s): 5793573 (5) Vertebral osteomyelitis Current Visit: Yes Status: Acute Code(s): M46.20 - OSTEOMYELITIS OF VERTEBRA, SITE UNSPECIFIED SNOMED Code(s): 471857623 Plan: 1patient presented hospital with sepsis in this patient who did have fever tachycardia tachypnea hypotension elevated white count meeting criteria for SIRS source is likely urinary as the patient has significantly positive UA plus minus infected left heel pressure ulcer with a previous history of MRSA infection to the left heel 2-sulfa allergy 3-blood cultures currently growing MRSA left heel culture currently growing MRSA's Proteus and Pseudomonas 4patient also have a destructive changes at C3-C4 with a question of possible discitis/osteomyelitis patient is concerned to be high surgical risk for surgery orthopedics is on standby 5-patient is afebrile patient white count is trending down repeat blood culture currently pending 6patient is currently being treated with daptomycin and cefepime and monitor clinical course closely Dictation was produced using [employer] dictation software. please excuse any grammatical, word or spelling errors. Time with Patient: Less than 30
--- NOTE | 2024-11-24 16:28 | P.PN ---
Subjective Progress Note Date: 11/24/24 Principal diagnosis: Reason for follow-up is left heel infected pressure ulcer and bacteremia Patient is a 84-year-old female with a past medical history significant for Coronary Artery Disease (CAD), Heart Failure, Dementia, Diabetes Mellitus, Hypertension, Myocardial Infarction ([place]), Pneumonia, Vascular Disorder, history of left heel infected pressure ulcer and [facility] resident patient has been [facility] as the patient was having mental status changes fever and elevated white count. On today's evaluation that is 11/24/2024, Patient is afebrile this morning patient is currently breathing comfortably on 2 L nasal oxygen apparently the patient was having issues with the pain and has received pain medication and was sleepy the time of evaluation no vomiting diarrhea or any changes reported by the family at the bedside. No new lab has been repeated today blood culture repeat 11/21/2024 negative Objective - Vital Signs Vital signs: Vital Signs Temp 97.8 F 11/24/24 07:54 Pulse 96 11/24/24 16:15 Resp 18 11/24/24 16:15 BP 97/60 11/24/24 16:15 Pulse Ox 99 11/24/24 16:15 FiO2 Intake & Output 11/23/24 11/24/24 11/24/24 18:59 06:59 18:59 Intake Total 218 Output Total 220 100 Balance -2 -100 Weight 72.3 kg 68 kg Intake: Oral 218 Output: Urine 220 100 Other: Voiding Method Indwelling Catheter Indwelling Catheter Indwelling Catheter - Exam GENERAL DESCRIPTION: An elderly female lying in bed in no distress RESPIRATORY SYSTEM: Unlabored breathing , decreased breath sounds at bases HEART: S1 S2 regular rate and rhythm , ABDOMEN: Soft , no tenderness EXTREMITIES: Left wound is currently dressed - Labs CBC & Chem 7: 11/23/24 06:15 11/23/24 06:15 Labs: Abnormal Lab Results - Last 24 Hours (Table) 11/23/24 11/23/24 11/23/24 Range/Units 16:27 18:41 20:00 POC Glucose (mg/dL) 333 H 327 H 335 H (70-110) mg/dL 11/24/24 11/24/24 11/24/24 Range/Units 05:37 06:16 11:35 POC Glucose (mg/dL) 167 H 163 H 176 H (70-110) mg/dL Microbiology - Last 24 Hours (Table) 11/21/24 05:17 Blood Culture - Preliminary Blood Assessment and Plan (1) Non healing left heel wound Current Visit: Yes Status: Acute Code(s): S91.302A - UNSPECIFIED OPEN WOUND, LEFT FOOT, INITIAL ENCOUNTER SNOMED Code(s): 199816863 (2) Septic shock Current Visit: Yes Status: Acute Code(s): A41.9 - SEPSIS, UNSPECIFIED ORGANISM; R65.21 - SEVERE SEPSIS WITH SEPTIC SHOCK SNOMED Code(s): 17955441 (3) Urinary tract infection Current Visit: Yes Status: Acute Code(s): N39.0 - URINARY TRACT INFECTION, SITE NOT SPECIFIED SNOMED Code(s): 43915656 (4) Bacteremia Current Visit: Yes Status: Acute Code(s): R78.81 - BACTEREMIA SNOMED Code(s): 2301205 (5) Vertebral osteomyelitis Current Visit: Yes Status: Acute Code(s): M46.20 - OSTEOMYELITIS OF VERT EBRA, SITE UNSPECIFIED SNOMED Code(s): 006516035 Plan: 1patient presented hospital with sepsis in this patient who did have fever tachycardia tachypnea hypotension elevated white count meeting criteria for SIRS source is likely urinary as the patient has significantly positive UA plus minus infected left heel pressure ulcer with a previous history of MRSA infection to the left heel 2-sulfa allergy 3-blood cultures currently growing MRSA left heel culture currently growing MRSA's Proteus and Pseudomonas 4patient also have a destructive changes at C3-C4 with a question of possible discitis/osteomyelitis patient is concerned to be high surgical risk for surgery orthopedics is on standby 5-patient is afebrile patient white count is trending down as of yesterday no CBC was done today repeat blood culture so far negative 6patient to continue with daptomycin and cefepime and monitor clinical course closely Dictation was produced using [employer] software. please excuse any grammatical, word or spelling errors.
[2024-11-24 16:59] LABS: Glucose,Whole Blood 143 mg/dL (70-110)
[2024-11-24 20:15] LABS: Glucose,Whole Blood 142 mg/dL (70-110)
[2024-11-24] MEDS: KETOROLAC 15 MG/ML 1 ML VIAL IVP PRN (21:16)
[2024-11-25 06:33] LABS: Glucose,Whole Blood 126 mg/dL (70-110)
[2024-11-25 10:50] LABS: African American GFR (CKD) 30 (>60 ml/min/1.73 sqM); Anion Gap 13 mmol/L; Blood Urea Nitrogen 93 mg/dL (7-17); Calcium 9.6 mg/dL (8.4-10.2); Carbon Dioxide 22 mmol/L (22-30); Chloride 106 mmol/L (98-107); Glucose 119 mg/dL (74-99); Non-African American GFR(CKD) 26 (>60 ml/min/1.73 sqM); Potassium 5.0 mmol/L (3.5-5.1); Sodium 141 mmol/L (137-145)
[2024-11-25 11:25] LABS: Glucose,Whole Blood 136 mg/dL (70-110)
[2024-11-25 11:26] LABS: Basophils # (A) 0.05 10*3/uL (0.00-0.10); Basophils % (A) 0.3 %; Eosinophils # (A) 0.09 10*3/uL (0.04-0.35); Eosinophils % (A) 0.6 %; HCT 32.0 % (37.2-46.3); HGB 9.3 g/dL (12.0-15.0); Lymphocytes # (A) 1.20 10*3/uL (0.90-5.00); Lymphocytes % (A) 8.1 %; MCH 26.3 pg (27.0-32.0); MCHC 29.1 g/dL (32.0-37.0); MCV 90.7 fL (80.0-97.0); Monocytes # (A) 0.83 10*3/uL (0.20-1.00); Monocytes % (A) 5.6 %; Neutrophils # (A) 12.45 10*3/uL (1.80-7.70); Neutrophils % (A) 83.7 %; Platelet Count 309 10*3/uL (140-440); RBC 3.53 10*6/uL (4.10-5.20); RDW 18.4 % (11.5-14.5); WBC 14.87 10*3/uL (4.50-10.00)
[2024-11-25] MEDS: METOPROLOL SUCCINATE (ER) 25 MG TAB.ER.24H PO SCH (11:54)
[2024-11-25] MEDS: LOSARTAN 25 MG TAB PO SCH (11:54)
--- NOTE | 2024-11-25 12:56 | P.PN ---
Subjective Progress Note Date: 11/25/24 The patient is an 85-year-old female patient who is known to our service from before with a past medical history significant for CAD status post CABG as well as ischemic cardiomyopathy status post AICD and also hypertension and dyslipidemia and diabetes and multiple comorbid conditions including chronic anemia. The patient is a resident at [facility]. She is somewhat poor historian. The patient was brought from the [facility] to the hospital because of low blood pressure associated with increasing in the shortness of breath and change in mental status. She was found to be hypoxic in the ER and she was admitted to the ICU and placed on oxygen. Also she was found to be hypotensive requiring norepinephrine to support her pressure. Also further evaluation was performed including troponin came to be abnormal. There is a concern about pulmonary embolism given the abnormal D-dimer and currently the patient is in process of having a CT scan of the chest. The EKG showed sinus with paced rhythm and also the patient is tachycardic and she is in mild hypoxic respiratory failure and mild respiratory distress. Hemodynamically she still unstable requiring small dose of norepinephrine. No symptoms of chest pain or chest discomfort beside the shortness of breath. The physical examination is remarkable for mild respiratory distress with regular rate and rhythm and distant heart sounds and soft systolic murmur and diminished breathing sounds bilaterally and mild bilateral lower extremities edema noted with the chest x-ray showed evidence of pulmonary vascular congestions. No NT proBNP was ordered. The troponin is definitely elevated and currently she is on heparin. She has resided at [facility] for 3 years. November 19, 2024 The patient was seen and evaluated this morning. She underwent an echo yesterday and that revealed severe cardiomyopathy with EF at 15%. She underwent a CT scan of the neck which showed osteomyelitis and she was seen by the surgical team with possible taking the patient to the OR. The patient is at very high risk at this stage given the severe cardiomyopathy and giving the ACS with elevated troponin on admission and giving the hypotension requiring norepinephrine and given the decompensated heart failure and currently she is on Lasix IV as well as dobutamine IV. Beside that the CT scan of the chest did not show any evidence of pulmonary embolism. The physical examination is remarkable for regular rhythm with heart rate in the 90s and systolic murmur at the right upper sternal border with diminished breathing sounds bilaterally and mild bilateral lower extremities edema. November 20, 2024 She awakens to voice. Answering some questions. She reports having pain in neck/shoulder. Dobutamine was discontinued, lasix decreased to 10mg. She remains on levophed. Family at bedside does not think she is back to baseline since [facility] when she had pneumonia. November 21, 2024 Pt seen in ICU. Feels "a little better". She is still on levophed. WBC 11.03, Hgb 9.0, creat 1.25. No chest pain or pressure. Shortness of breath improved. November 22, 2024 Patient seen in ICU. She is off pressors. Continues on Lasix drip at 10. WBC 11.06, hemoglobin 9.3, creatinine 1.12. 11/23/2024 Patient was transferred out of ICU to stepdown floor today. She is off pressors, she is on Lasix drip. I will discontinue Lasix drip and start IV Lasix 40 twice daily. Her kidney function has continued to improve. Urine output is still on the low side. 11/24/2024 Seen and examined at bedside this a.m. She was transition from IV Lasix drip to Lasix 40 IV twice daily. Urine output has been minimal. She still has a subclavian dialysis catheter in place. 11/25/2024 Patient is seen and examined at bedside this a.m. PHYSICAL EXAMINATION: This is a 84-year-old female in no apparent distress at the time of my examination. HEENT: Head is atraumatic, normocephalic. Pupils are equal, round. Sclerae anicteric. Conjunctivae are clear. Mucous membranes of the mouth are moist. Neck is flexed forward in bed. There is no jugular venous distention. CHEST EXAMINATION: Lungs are diminished. On NC O2. No chest wall tenderness is noted on palpation or with deep breathing. HEART EXAMINATION: Heart regular rate and rhythm. S1, S2 heard. No gallops or rub. Distant heart sounds and soft systolic murmur ABDOMEN: Soft, nontender. Bowel sounds are heard. EXTREMITIES: 2+ peripheral pulses with no evidence of peripheral edema and no calf tenderness noted. NEUROLOGIC EXAMINATION: Patient awakens to voice, alert and oriented x3. Assessment Change in mental status which has improved Low blood pressure requiring norepinephrine Mild respiratory distress Abnormal D-dimer with no evidence of PE Abnormal troponin CAD status post CABG Ischemic cardiomyopathy, EF 10-15% Status post AICD Anuria Multiple comorbid conditions MRSA infection, multiple locations Plan Change IV diuretics to p.o. Bumex 1 mg p.o. twice daily Losartan 12.5 mg daily, metoprolol 12.5 mg daily Continue aspirin, The patient is at high risk for any surgical intervention at this point, long discussion with family regarding risks vs benefits. Would not recommend surgery at this time. Make consider further assessment when hemodydamically stable. Prognosis extremely guarded. We discussed the status of poor prognosis with the family. They understands and agrees with the plan of care. Family has been contemplating palliative care versus hospice care. I have provided education on this to the patient's family. I would recommend goals of care to be comfort with continuation of her current medical therapy with medications only. Objective - Vital Signs Vital signs: Vital Signs Temp 96.4 F L 11/25/24 08:04 Pulse 87 11/25/24 11:45 Resp 18 11/25/24 11:45 BP 147/78 11/25/24 11:45 Pulse Ox 99 11/25/24 11:45 FiO2 Intake & Output 11/24/24 11/25/24 11/25/24 18:59 06:59 18:59 Output Total 420 Balance -420 Output: Urine 420 Other: Voiding Method Indwelling Catheter Indwelling Catheter Indwelling Catheter - Labs CBC & Chem 7: 11/25/24 10:46 11/25/24 09:54 Labs: Abnormal Lab Results - Last 24 Hours (Table) 11/24/24 11/24/24 11/25/24 Range/Units 16:58 20:14 06:32 WBC (4.50-10.00) 10*3/uL RBC (4.10-5.20) 10*6/uL Hgb (12.0-15.0) g/dL Hct (37.2-46.3) % MCH (27.0-32.0) pg MCHC (32.0-37.0) g/dL Immature Gran # (0.00-0.04) 10*3/uL Neutrophils # (1.80-7.70) 10*3/uL BUN (7-17) mg/dL Creatinine (0.52-1.04) mg/dL Glucose (74-99) mg/dL POC Glucose (mg/dL) 143 H 142 H 126 H (70-110) mg/dL 11/25/24 11/25/24 11/25/24 Range/Units 09:54 10:46 11:23 WBC 14.87 H (4.50-10.00) 10*3/uL RBC 3.53 L (4.10-5.20) 10*6/uL Hgb 9.3 L (12.0-15.0) g/dL Hct 32.0 L (37.2-46.3) % MCH 26.3 L (27.0-32.0) pg MCHC 29.1 L (32.0-37.0) g/dL Immature Gran # 0.25 H (0.00-0.04) 10*3/uL Neutrophils # 12.45 H (1.80-7.70) 10*3/uL BUN 93 H (7-17) mg/dL Creatinine 1.79 H (0.52-1.04) mg/dL Glucose 119 H (74-99) mg/dL POC Glucose (mg/dL) 136 H (70-110) mg/dL Microbiology - Last 24 Hours (Table) 11/21/24 05:17 Blood Culture - Preliminary Blood
--- NOTE | 2024-11-25 14:14 | P.PN ---
Subjective Progress Note Date: 11/25/24 Principal diagnosis: Septic shock. Patient is 84-year-old female sent in by EMS from her [facility], [facility], yesterday after being noted to be confused, lethargic, with low blood pressures. She was tachycardic with a temperature of 100.8 F. Concerns for sepsis. On arrival, she was hypotensive, fluid resuscitated with a total of 3 L crystalloid fluid. Norepinephrine was started as the blood pressure did not respond to fluid alone. Started on a combination of cefepime and vancomycin for broad- spectrum antibiotic coverage. Serial troponins were elevated, and patient was also diagnosed with acute non-ST elevation GA and started on IV heparin per protocol. 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 Of note, had a recent hospitalization back in July, for sepsis and CHF exacerbation. MRSA was isolated in her blood. SILVIANO done on 08/10/2024 did not show any vegetation. There was a severely red uced left ventricular ejection fraction of 30 to 35%, moderate mitral and tricuspid regurgitation with severe pulmonary hypertension. Mild to moderate aortic regurgitation. Treated with IV antibiotics. She also has history of ischemic cardiomyopathy, biventricular AICD, previous CABG, hypertension, hyperlipidemia, diabetes mellitus type 2, dementia, among other debilitating comorbidities. Workup in the emergency department including chest x-ray showing stable pulmonary vascular congestion with scattered infiltrates and small effusions suggestive of congestive heart failure. X-ray left foot with soft tissue wound over the heel without evidence of osseous erosion. Urinalysis was positive for pyuria and bacteria. CBC with a WBC count of 13.4, hemoglobin 9.3, platelets 439. CMP: Sodium 132, potassium 5.7, chloride 98, serum bicarb 21, BUN 76, creatinine 1.35, glucose 219. LFTs mildly elevated. Troponins elevated at 1.11, 2.2, 4.3, and 5.5 respectively. EKG showing a ventricularly paced rhythm. IV heparin continues per protocol. VBG with a pCO2 of 39 and pH of 7.38. Viral 4 Plex negative for influenza A/B, RSV, COVID of note, on her previous hospitalization in July was positive for RSV. Currently, patient is being observed in the intensive care unit. She is currently awake and alert. She is oriented to self and place. Does not recall events prior to coming to the hospital. I am told this could be her baseline. She does have dementia and takes Aricept at the [facility]. Denies any chest pain. IV heparin continues per protocol. Blood pressure is being supported with norepinephrine which is infusing at 0.04 mcg/kg/min. Previously febrile with a Tmax of 101.9 F, and this is down and currently normothermic. Urinary catheter was placed which is draining clear urine. Normal saline to be started at 50 mL/h. pancultures are pending. Patient previously complaining of neck pain, however, denies this to me. She has a CT of the neck and chest ordered. No respiratory distress or stridor. On room air. Patient was seen today on 11/19/2024, remains in the ICU, patient is still requiring norepinephrine at 0.13 mcg/kg/min, she received significant amount of fluid boluses, patient is known to have history of severe LV dysfunction and history of congestive heart failure, hence we cut back on her fluids, patient was not making significant urine output yesterday in spite of all the fluids given and in spite of Lasix IV push, hence I recommended patient going on dobutamine at 2.5 mcg/kg/min, I recommended a Lasix drip at 20 mg/h. Patient did quite well with the infusion of Lasix and dobutamine. Her urine output has been excellent while on Lasix, she is on 2 L nasal cannula, does not seem to be uncomfortable. For her non-ST elevation myocardial infarction, patient remains on heparin, she had abnormal troponins, patient is again noted to have history of severe ischemic cardiomyopathy and previous AICD placement. Considering the overall picture, at this point the patient is an absolute contraindication to any cervical surgery. WBC count is 14.3 hemoglobin 9.1 electrolytes are normal renal profile is normal BUN is 95 creatinine 1.88 bicarb is 14. Patient will be placed on oral bicarb for now. Patient was seen today on 11/20/2024, patient remains in the ICU, remains unstable, still requiring norepinephrine at 0.05 mcg/kg/min she was on Dobutrex at 5 mcg/kg/min however she developed tachyarrhythmia and had to go down to 2.5 mg/kg/min, continues to have now frequent PVCs, I recommended stopping the dobutamine altogether. Patient is still on Lasix at 20 mg/h and I cut it down to 10 mg/h. Her cultures have all been reviewed, patient had positive blood cultures on 11/17 showing MRSA in the blood, her wound cultures showed Proteus mirabilis Pseudomonas Klebsiella and corynebacterium stratum her left leg wound culture showed MRSA and Proteus mirabilis. So obviously the patient is a great set up for sepsis and septic shock as she presented with. Not to mention the patient has severe cardiomyopathy and LV dysfunction. She had previous AICD placement. Still believe the patient has absolute contraindication to surgery, and I will not clear the patient for surgery at this point in time as it is extremely risky and possibly fatal. Patient has multiple comorbidities which makes surgery at this point and absolute current indication remember patient is not hemodynamically stable and her presentation was a presentation of sepsis and septic shock. WBC count is 12.1 hemoglobin 9.1 electrolytes are normal BUN is 87 creatinine 1.40 PTT is 50. Blood sugar is 222. Chest x-ray yesterday showed cardiomegaly, right pleural effusion, right basilar consolidation, and pulmonary vascular congestion consistent with congestive heart failure. Patient was seen today on 11/21/2024, patient remains in the ICU, still requiring norepinephrine at 0.07 mcg/kg/min she is off dobutamine yesterday, remains on Lasix drip at 10 mg/h. Urine output is fair, she had a negative balance of 500 cc over the last 24 hours. Patient remains on daptomycin and cefepime, remains on heparin, this is being addressed by cardiology on the case. May have to consider oral anticoagulation therapy. Patient herself is not in any distress, she is not symptomatic, her WBC count is 11 hemoglobin 9 her PTT is therapeutic 56 electrolytes are normal BUN is 78 creatinine is lower today 1.25. Chest x- ray continues to show evidence of pulmonary edema and cardiomegaly. Patient is only on 2 L nasal cannula and O2 saturation ranging between 96 to 100% Patient was seen today on 11/22/2024, patient is in the ICU, off norepinephrine for the last 10 hours. Patient is on 2 L nasal cannula, remains on Lasix drip at 10 mg/h. She is off inotropes of pressors, chest x-ray not done today however her chest x-ray yesterday showed interstitial edema. Clinically the patient is doing better than expected considering her cardiomyopathy and LV dysfunction and considering her initial presentation. WBC is 11.0 hemoglobin 9.3 electrolytes are normal renal profile showed improvement with BUN of 76 creatinine 1.21 Progress note dated November 23, 2024. The patient is seen today in room 368. Currently, she is recovering from an episode of septic shock, and respiratory failure. She was in the intensive care unit, but has been moved out to the floor. She is currently on room air. She is getting Lasix at 10 mg an hour, saline at 10 cc an hour. She continues on daptomycin and Maxipime. She has left leg wounds, with multiple abnormal culture data. Current labs include white count 11.3, hemoglobin 8.6, hematocrit 28.7, and a platelet count of 323,000. Sodium 138, potassium 4.3, chloride 105, CO2 23, BUN 70, creatinine 1.24. Glucose is 265. Calcium is 9.1. Culture of the left leg, reveals evidence of MRSA, Proteus, Pseudomonas, Klebsiella, among other bacteria. Progress note dated November 24, 2024. 84-year-old female seen today in room 368. She continues on oxygen, by nasal cannula at 2 L. She continues on cefepime and daptomycin. Her saturations are 99%. The patient is getting saline at 10 cc an hour. Current labs, include only a glucose of 176. Left leg wound, showed evidence of methicillin-resistant Staph aureus, Proteus mirabilis, Pseudomonas aeruginosa, and Klebsiella species. No recent chest x-ray to report. Progress note dated November 25, 2024. 84-year-old female seen today in room 368. She is day 8, of her hospitalization. She is resting comfortably in bed. She continues on 2 L nasal cannula. She is getting saline at 15 cc an hour. She also continues on daptomycin for her leg wounds. Family members were in the room, and all questions were answered. Clinically, the patient looks reasonably stable. She will return tomorrow week, when she is able to be discharged. Current labs include a white count of 14.9, hemoglobin of 9.3, hematocrit 32, and a platelet count of 309,000. Sodium 141, potassium 5, chlorides 106, CO2 22, anion gap 13, BUN 93, creatinine 1.79. Leukosis 136. Calcium 9.6, and magnesium is 2.2. Objective - Vital Signs Vital signs: Vital Signs Temp 96.4 F L 11/25/24 08:04 Pulse 87 11/25/24 11:45 Resp 18 11/25/24 11:45 BP 147/78 11/25/24 11:45 Pulse Ox 99 11/25/24 11:45 FiO2 Intake & Output 11/24/24 11/25/24 11/25/24 18:59 06:59 18:59 Output Total 420 Balance -420 Output: Urine 420 Other: Voiding Method Indwelling Catheter Indwelling Catheter Indwelling Catheter - Exam No acute distress, oriented 3. The patient continues on 2 L nasal cannula. HEENT examination is grossly unremarkable. Mucous membranes are moist. No oral lesions. Neck supple. Full range of motion. No adenopathy thyromegaly or neck vein distention. Cardiovascular examination reveals regular rhythm rate. S1-S2 normal. No S3 or S4. No discernible murmur noted. Lungs reveal basilar crackles. No rhonchi. No wheezes. Breath sounds are equal bilaterally. Abdomen soft bowel sounds are heard. No masses or tenderness. Extremities are intact. No cyanosis or clubbing. Mild edema present. Skin is without rash or lesion. Neurologic examination is brief but nonfocal. - Labs CBC & Chem 7: 11/25/24 10:46 11/25/24 09:54 Labs: Abnormal Lab Results - Last 24 Hours (Table) 11/24/24 11/24/24 11/25/24 Range/Units 16:58 20:14 06:32 WBC (4.50-10.00) 10*3/uL RBC (4.10-5.20) 10*6/uL Hgb (12.0-15.0) g/dL Hct (37.2-46.3) % MCH (27.0-32.0) pg MCHC (32.0-37.0) g/dL Immature Gran # (0.00-0.04) 10*3/uL Neutrophils # (1.80-7.70) 10*3/uL BUN (7-17) mg/dL Creatinine (0.52-1.04) mg/dL Glucose (74-99) mg/dL POC Glucose (mg/dL) 143 H 142 H 126 H (70-110) mg/dL 11/25/24 11/25/24 11/25/24 Range/Units 09:54 10:46 11:23 WBC 14.87 H (4.50-10.00) 10*3/uL RBC 3.53 L (4.10-5.20) 10*6/uL Hgb 9.3 L (12.0-15.0) g/dL Hct 32.0 L (37.2-46.3) % MCH 26.3 L (27.0-32.0) pg MCHC 29.1 L (32.0-37.0) g/dL Immature Gran # 0.25 H (0.00-0.04) 10*3/uL Neutrophils # 12.45 H (1.80-7.70) 10*3/uL BUN 93 H (7-17) mg/dL Creatinine 1.79 H (0.52-1.04) mg/dL Glucose 119 H (74-99) mg/dL POC Glucose (mg/dL) 136 H (70-110) mg/dL Microbiology - Last 24 Hours (Table) 11/21/24 05:17 Blood Culture - Preliminary Blood Assessment and Plan Assessment: Sepsis, with septic shock, previously on norepinephrine. Acute febrile illness with bacteremia, with underlying sepsis/septic shock. Chronic left leg/heel wound, with multiple bacteria, including Pseudomonas, Proteus, MRSA, etc. Cardiomyopathy, with an ejection fraction of 30 to 35%, and evidence of valvular heart disease. Severe pulmonary hypertension. Ischemic cardiomyopathy. Acute non-ST segment elevation myocardial infarction. Status post AICD/pacemaker implantation. History of CAD with previous CABG. History of hypertension. History of hyperlipidemia. Type 2 diabetes mellitus. Acute kidney injury. Hyperkalemia. History of RSV tracheobronchitis, July 2024. Chronic normocytic/normochromic anemia. History of dementia. Plan: Plan dated November 23, 2024. The patient is seen today in room 368. The patient's daughter is in the room. The patient has been at [facility], for at least 2 years, and the plan is for her to go back tomorrow with. She continues on daptomycin and Maxipime. She has multiple left leg and heel wounds. Currently, she is on Lasix at 10 mg an hour, and saline at 10 cc an hour. She is on room air. She is a DO NOT RESUSCITATE patient. Labs, x-rays, and all medications are reviewed. We will continue to follow the patient, make recommendations. Prognosis is poor. Dictation was produced using [employer] software. Please excuse any grammatical, word or spelling errors. Plan dated November 24, 2024. The patient is seen today in room 368. Family members are in the room. The aleida noble has been at [place] for at least 2 years, and the plan is for her to go back tomorrow with. The patient continues on cefepime, and daptomycin. Left leg wound, shows multiple bacteria as mentioned above. She is getting saline at 10 cc an hour, she is on 2 L of oxygen, with saturations of 99%. Labs, x-rays, and all medications are reviewed. The patient is a DO NOT RESUSCITATE patient. We will continue to follow. Prognosis is guarded. Dictation was produced using [employer] software. Please excuse any grammatical, word or spelling errors. Plan dated November 25, 2024. The patient is seen in room 368. 3 family members are in the room. I explained to the family members that from the pulmonary standpoint, the patient is stable for discharge. Apparently cardiology told the family the same thing. She continues on 2 L of oxygen. Saturations are in the mid to high 90s. She is currently on daptomycin. Will have to await input by infectious disease, to determine whether or not that will be her discharge antibiotic. The patient will return tomorrow to eventually. No additional recommendations are made. Labs, x-rays, and all medications are reviewed. Prognosis is certainly guarded. Dictation was produced using [employer] software. Please excuse any grammatical, word or spelling errors. Time with Patient: Less than 30
[2024-11-25] MEDS: BUMETANIDE 1 MG TAB PO SCH (15:42)
[2024-11-25 16:17] LABS: Glucose,Whole Blood 309 mg/dL (70-110)
[2024-11-25 19:58] LABS: Glucose,Whole Blood 400 mg/dL (70-110)
--- NOTE | 2024-11-26 00:58 | P.PN ---
Subjective Patient is 84-year-old female sent in by EMS from her assisted, [facility], after being noted to be confused, lethargic, with low blood pressures. She was tachycardic with a temperature of 100.8 F. Concerns for sepsis. On arrival, she was hypotensive, fluid resuscitated with a total of 3 L crystalloid fluid. Norepinephrine was started as the blood pressure did not respond to fluid alone. Started on a combination of cefepime and vancomycin for broad-spectrum antibiotic coverage. Serial troponins were elevated, and patient was also diag nosed with acute non-ST elevation PA and started on IV heparin per protocol. 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 Of note, had a recent hospitalization back in July, for sepsis and CHF exacerbation. MRSA was isolated in her blood. SILVIANO done on 08/10/2024 did not show any vegetation. There was a severely reduced left ventricular ejection fraction of 30 to 35%, moderate mitral and tricuspid regurgitation with severe pulmonary hypertension. Mild to moderate aortic regurgitation. Treated with IV antibiotics. She also has history of ischemic cardiomyopathy, biventricular AICD, previous CABG, hypertension, hyperlipidemia, diabetes mellitus type 2, dementia, among other debilitating comorbidities. Workup in the emergency department including chest x-ray showing stable pulmonary vascular congestion with scattered infiltrates and small effusions suggestive of congestive heart failure. X-ray left foot with soft t issue wound over the heel without evidence of osseous erosion. Urinalysis was positive for pyuria and bacteria. CBC with a WBC count of 13.4, hemoglobin 9.3, platelets 439. CMP: Sodium 132, potassium 5.7, chloride 98, serum bicarb 21, BUN 76, creatinine 1.35, glucose 219. LFTs mildly elevated. Troponins elevated at 1.11, 2.2, 4.3, and 5.5 respectively. EKG showing a ventricularly paced rhythm. IV heparin continues per protocol. VBG with a pCO2 of 39 and pH of 7.38. Viral 4 Plex negative for influenza A/B, RSV, COVID of note, on her previous hospitalization in July was positive for RSV. Currently, patient is being observed in the intensive care unit. She is currently awake and alert. She is oriented to self and place. Does not recall events prior to coming to the hospital. I am told this could be her baseline. She does have dementia and takes Aricept at the assisted. Denies any chest pain. IV heparin continues per protocol. Blood pressure is being supported with norepinephrine which is infusing at 0.04 mcg/kg/min. Previously febrile with a Tmax of 101.9 F, and this is down and currently normothermic. Urinary catheter was placed which is draining clear urine. Normal saline to be started at 50 mL/h. pancultures are pending. Patient previously complaining of neck pain, however, denies this to me. She has a CT of the neck and chest ordered. No respiratory distress or stridor 11/21. Patient seen and examined.Labs reviewed showing WBC 9.03, hemoglobin 9, platelet count 428, sodium 137, potassium 4.4, BUN 78, creatinine 1.25. Currently on IV Levophed which is being weaned down. Currently on IV cefepime, daptomycin and Lasix drip. Complaining of leg pain. 11/22/2024 Patient remains on norepinephrine. Chest x-ray from yesterday showed interstitial edema no x-ray was done today. Patient audelia on IV Lasix drip. White count continues to improve and improved to 11 from 12 creatinine remained stable at 1.2. Patient is having good urine output REVIEW OF SYSTEMS: CONSTITUTIONAL: No fever, no malaise,. CARDIOVASCULAR: No chest pain, no palpitations, no syncope. PULMONARY: No shortness of breath, no cough, GASTROINTESTINAL: No diarrhea, no nausea, no vomiting, no abdominal pain. NEUROLOGICAL: No headaches, no weakness, 11/23 Patient currently in 368 She is awake but drowsy also she is confused cannot contribute much to the history this morning, probably also part of her delirium Patient herself denies any specific complaints Patient remains tachycardic with heart rate jumps to 103, blood pressure 102/60. Patient is afebrile and breathing at a rate of 18 to 20/min Labs reviewed, patient has stable leukocytosis 11.3 and hemoglobin 8.6 Creatinine 1.24, which is stable since admission compared to baseline 0.8-1.0 Patient remains on IV cefepime and daptomycin and Lasix drip 11/24 Patient still very lethargic and tired Somewhat tachypneic Dressing in the left leg is in place with some oozing Daughter at bedside Patient supposedly still getting IV Lasix 10 mg/h and broad-spectrum antibiotic with cefepime and daptomycin 11/25 Since dry kiln feeder I got a message that 3 daughters want others . To have a hospice consult When I went to see the patient 3 daughters were at bedside. Patient was awake alert looks slightly better still confused but she can answer questions she is v juan francisco tired. Still mildly tachypneic at rest. She is not getting IV Lasix anymore still on IV antibiotics. Family request to switch to oral antibiotics and discharge her soon. production manager on the case. Objective - Vital Signs Vital signs: Vital Signs Temp 96.4 F L 11/25/24 08:04 Pulse 87 11/25/24 11:45 Resp 18 11/25/24 11:45 BP 147/78 11/25/24 11:45 Pulse Ox 99 11/25/24 11:45 FiO2 Intake & Output 11/24/24 11/25/24 11/25/24 18:59 06:59 18:59 Output Total 420 Balance -420 Output: Urine 420 Other: Voiding Method Indwelling Catheter Indwelling Catheter Indwelling Catheter - Exam -GENERAL: The patient is alert, confused and drowsy, not in any acute distress. Well developed, well nourished. Obese HEENT: Pupils are round and equally reacting to light. EOMI. No scleral icterus. No conjunctival pallor. Normocephalic, atraumatic. No pharyngeal erythema. No thyromegaly. CARDIOVASCULAR: S1 and S2 present. No murmurs, rubs, or gallops. PULMONARY: Chest is clear to auscultation, no wheezing , no crackles. ABDOMEN: Soft, nontender, nondistended, normoactive bowel sounds. No palpable organomegaly. MUSCULOSKELETAL: No joint swelling or deformity. EXTREMITIES: No cyanosis, clubbing, or pedal edema. NEUROLOGICAL: Gross neurological examination did not reveal any focal deficits. SKIN: No rashes. no petechiae. - Labs CBC & Chem 7: 11/25/24 10:46 11/25/24 09:54 Labs: Abnormal Lab Results - Last 24 Hours (Table) 11/24/24 11/24/24 11/25/24 Range/Units 16:58 20:14 06:32 WBC (4.50-10.00) 10*3/uL RBC (4.10-5.20) 10*6/uL Hgb (12.0-15.0) g/dL Hct (37.2-46.3) % MCH (27.0-32.0) pg MCHC (32.0-37.0) g/dL Immature Gran # (0.00-0.04) 10*3/uL Neutrophils # (1.80-7.70) 10*3/uL BUN (7-17) mg/dL Creatinine (0.52-1.04) mg/dL Glucose (74-99) mg/dL POC Glucose (mg/dL) 143 H 142 H 126 H (70-110) mg/dL 11/25/24 11/25/24 11/25/24 Range/Units 09:54 10:46 11:23 WBC 14.87 H (4.50-10.00) 10*3/uL RBC 3.53 L (4.10-5.20) 10*6/uL Hgb 9.3 L (12.0-15.0) g/dL Hct 32.0 L (37.2-46.3) % MCH 26.3 L (27.0-32.0) pg MCHC 29.1 L (32.0-37.0) g/dL Immature Gran # 0.25 H (0.00-0.04) 10*3/uL Neutrophils # 12.45 H (1.80-7.70) 10*3/uL BUN 93 H (7-17) mg/dL Creatinine 1.79 H (0.52-1.04) mg/dL Glucose 119 H (74-99) mg/dL POC Glucose (mg/dL) 136 H (70-110) mg/dL Microbiology - Last 24 Hours (Table) 11/21/24 05:17 Blood Culture - Preliminary Blood Assessment and Plan Assessment: Severe sepsis, status post septic shock, secondary to infection from the leg wounds, vertebral osteomyelitis, unknown whether patient actually had UTI on admission, Acute febrile illness, with bacteremia noted on 11/17/2024, 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, Pseudomonas aeruginosa, Proteus MirabellisHistory of MRSA bacteremia, SILVIANO done on 08/10/2024 did not show any vegetation Acute non-ST elevation PA Ischemic cardiomyopathy low ejection fraction, remains on Lasix drip Acute kidney injury History of implanted AICD/pacemaker History of coronary artery disease with previous CABG History of hypertension History of hyperlipidemia Diabetes mellitus, type II Acute kidney injury Hyperkalemia History of RSV tracheobronchitis July, Chronic normocytic, normochromic anemia Dementia Plan: Monitor vital signs Monitor CBC Monitor CMP Continue telemetry monitoring Follow-up on blood culture Strict I's and O's, daily weights Continue IV Lasix drip Currently off Levophed/pressor Currently on daptomycin and cefepime ID following Cardiology following Critical care following Labs and medication were reviewed.. Continue same treatment. Monitor labs and vitals. DVT and GI prophylaxis. Further recommendations as per clinical course of the patient
[2024-11-26 05:49] LABS: Glucose,Whole Blood 237 mg/dL (70-110)
--- NOTE | 2024-11-26 07:36 | P.PN ---
Subjective Progress Note Date: 11/25/24 Principal diagnosis: Reason for follow-up is left heel infected pressure ulcer and bacteremia Patient is a 84-year-old female with a past medical history significant for Coronary Artery Disease (CAD), Heart Failure, Dementia, Diabetes Mellitus, Hypertension, Myocardial Infarction (LA), Pneumonia, Vascular Disorder, history of left heel infected pressure ulcer and detention resident patient has been sent to the from the detention as the patient was having mental status changes fever and elevated white count. On today's evaluation that is 11/25/2024,the patient is slightly more awake and alert today the patient remains to be afebrile and is breathing comfortably on 2 L nasal oxygen, no vomiting diarrhea or any changes reported by the family at the bedside. Patient white count slightly up to 14.87, creatinine is 1.79 blood culture repeat has been negative Objective - Vital Signs Vital signs: Vital Signs Temp 96.4 F L 11/25/24 08:04 Pulse 87 11/25/24 11:45 Resp 18 11/25/24 11:45 BP 147/78 11/25/24 11:45 Pulse Ox 99 11/25/24 11:45 FiO2 Intake & Output 11/24/24 11/25/24 11/25/24 18:59 06:59 18:59 Output Total 420 Balance -420 Output: Urine 420 Other: Voiding Method Indwelling Catheter Indwelling Catheter Indwelling Catheter - Exam GENERAL DESCRIPTION: An elderly female lying in bed in no distress RESPIRATORY SYSTEM: Unlabored breathing , decreased breath sounds at bases HEART: S1 S2 regular rate and rhythm , ABDOMEN: Soft , no tenderness EXTREMITIES: Left wound is currently dressed - Labs CBC & Chem 7: 11/25/24 10:46 11/25/24 09:54 Labs: Abnormal Lab Results - Last 24 Hours (Table) 11/24/24 11/24/24 11/25/24 Range/Units 16:58 20:14 06:32 WBC (4.50-10.00) 10*3/uL RBC (4.10-5.20) 10*6/uL Hgb (12.0-15.0) g/dL Hct (37.2-46.3) % MCH (27.0-32.0) pg MCHC (32.0-37.0) g/dL Immature Gran # (0.00-0.04) 10*3/uL Neutrophils # (1.80-7.70) 10*3/uL BUN (7-17) mg/dL Creatinine (0.52-1.04) mg/dL Glucose (74-99) mg/dL POC Glucose (mg/dL) 143 H 142 H 126 H (70-110) mg/dL 11/25/24 11/25/24 11/25/24 Range/Units 09:54 10:46 11:23 WBC 14.87 H (4.50-10.00) 10*3/uL RBC 3.53 L (4.10-5.20) 10*6/uL Hgb 9.3 L (12.0-15.0) g/dL Hct 32.0 L (37.2-46.3) % MCH 26.3 L (27.0-32.0) pg MCHC 29.1 L (32.0-37.0) g/dL Immature Gran # 0.25 H (0.00-0.04) 10*3/uL Neutrophils # 12.45 H (1.80-7.70) 10*3/uL BUN 93 H (7-17) mg/dL Creatinine 1.79 H (0.52-1.04) mg/dL Glucose 119 H (74-99) mg/dL POC Glucose (mg/dL) 136 H (70-110) mg/dL Microbiology - Last 24 Hours (Table) 11/21/24 05:17 Blood Culture - Preliminary Blood Assessment and Plan (1) Non healing left heel wound Current Visit: Yes Status: Acute Code(s): S91.302A - UNSPECIFIED OPEN WOUND, LEFT FOOT, INITIAL ENCOUNTER SNOMED Code(s): 394858654 (2) Septic shock Current Visit: Yes Status: Acute Code(s): A41.9 - SEPSIS, UNSPECIFIED ORGANISM; R65.21 - SEVERE SEPSIS WITH SEPTIC SHOCK SNOMED Code(s): 71857034 (3) Urinary tract infection Current Visit: Yes Status: Acute Code(s): N39.0 - URINARY TRACT INFECTION, SITE NOT SPECIFIED SNOMED Code(s): 01417601 (4) Bacteremia Current Visit: Yes Status: Acute Code(s): R78.81 - BACTEREMIA SNOMED Code(s): 0906436 (5) Vertebral osteomyelitis Current Visit: Yes Status: Acute Code(s): M46.20 - OSTEOMYELITIS OF VERTEBRA, SITE UNSPECIFIED SNOMED Code(s): 068202567 Plan: 1patient presented hospital with sepsis in this patient who did have fever tac hycardia tachypnea hypotension elevated white count meeting criteria for SIRS source is likely urinary as the patient has significantly positive UA plus minus infected left heel pressure ulcer with a previous history of MRSA infection to the left heel 2-sulfa allergy 3-blood cultures currently growing MRSA left heel culture currently growing MRSA's Proteus and Pseudomonas 4patient also have a destructive changes at C3-C4 with a question of possible discitis/osteomyelitis patient is concerned to be high surgical risk for surgery orthopedics is on standby 5-patient is afebrile patient white count is slightly up today and will monitor closely, repeat blood culture so far negative 6patient to continue with daptomycin and cefepime and monitor clinical course closely, family is talking about possible palliative care however wanted patient to be continued on antibiotic this will be discussed further with the palliative team Dictation was produced using [employer] dictation software. please excuse any grammatical, word or spelling errors. Time with Patient: Less than 30
[2024-11-26 11:08] LABS: Glucose,Whole Blood 280 mg/dL (70-110)
--- NOTE | 2024-11-26 14:38 | P.PN ---
Subjective Progress Note Date: 11/26/24 The patient is an 85-year-old female patient who is known to our service from before with a past medical history significant for CAD status post CABG as well as ischemic cardiomyopathy status post AICD and also hypertension and dyslipidemia and diabetes and multiple comorbid conditions including chronic a nemia. The patient is a resident at [facility]. She is somewhat poor historian. The patient was brought from the [facility] to the hospital because of low blood pressure associated with increasing in the shortness of breath and change in mental status. She was found to be hypoxic in the ER and she was admitted to the ICU and placed on oxygen. Also she was found to be hypotensive requiring norepinephrine to support her pressure. Also further evaluation was performed including troponin came to be abnormal. There is a concern about pulmonary embolism given the abnormal D-dimer and currently the patient is in process of having a CT scan of the chest. The EKG showed sinus with paced rhythm and also the patient is tachycardic and she is in mild hypoxic respiratory failure and mild respiratory distress. Hemodynamically she still unstable requiring small dose of norepinephrine. No symptoms of chest pain or chest discomfort beside the shortness of breath. The physical examination is remarkable for mild respiratory distress with regular rate and rhythm and distant heart sounds and soft systolic murmur and diminished breathing sounds bilaterally and mild bilateral lower extremities edema noted with the chest x-ray showed evidence of pulmonary vascular congestions. No NT proBNP was ordered. The troponin is definitely elevated and currently she is on heparin. She has resided at [facility] for 3 years. November 19, 2024 The patient was seen and evaluated this morning. She underwent an echo yesterday and that revealed severe cardiomyopathy with EF at 15%. She underwent a CT scan of the neck which showed osteomyelitis and she was seen by the surgical team with possible taking the patient to the OR. The patient is at very high risk at this stage given the severe cardiomyopathy and giving the ACS with elevated troponin on admission and giving the hypotension requiring norepinephrine and given the decompensated heart failure and currently she is on Lasix IV as well as dobutamine IV. Beside that the CT scan of the chest did not show any evidence of pulmonary embolism. The physical examination is remarkable for regular rhythm with heart rate in the 90s and systolic murmur at the right upper sternal border with diminished breathing sounds bilaterally and mild bilateral lower extremities edema. November 20, 2024 She awakens to voice. Answering some questions. She reports having pain in neck/shoulder. Dobutamine was discontinued, lasix decreased to 10mg. She remains on levophed. Family at bedside does not think she is back to baseline since July when she had pneumonia. November 21, 2024 Pt seen in ICU. Feels "a little better". She is still on levophed. WBC 11.03, Hgb 9.0, creat 1.25. No chest pain or pressure. Shortness of breath improved. November 22, 2024 Patient seen in ICU. She is off pressors. Continues on Lasix drip at 10. WBC 11.06, hemoglobin 9.3, creatinine 1.12. 11/23/2024 Patient was transferred out of ICU to stepdown floor today. She is off pressors, she is on Lasix drip. I will discontinue Lasix drip and start IV Lasix 40 twice daily. Her kidney function has continued to improve. Urine output is still on the low side. 11/24/2024 Seen and examined at bedside this a.m. She was transition from IV Lasix drip to Lasix 40 IV twice daily. Urine output has been minimal. She still has a subclavian dialysis catheter in place. 11/25/2024 Patient is seen and examined at bedside this a.m. 11/26/2024 She is tolerating the addition of mild GDMT BP 100/64, heart rate 86, still very lethargic PHYSICAL EXAMINATION: This is a 84-year-old female in no apparent distress at the time of my examination. HEENT: Head is atraumatic, normocephalic. Pupils are equal, round. Sclerae anicteric. Conjunctivae are clear. Mucous membranes of the mouth are moist. Neck is flexed forward in bed. There is no jugular venous distention. CHEST EXAMINATION: Lungs are diminished. On NC O2. No chest wall tenderness is noted on palpation or with deep breathing. HEART EXAMINATION: Heart regular rate and rhythm. S1, S2 heard. No gallops or rub. Distant heart sounds and soft systolic murmur ABDOMEN: Soft, nontender. Bowel sounds are heard. EXTREMITIES: 2+ peripheral pulses with no evidence of peripheral edema and no calf tenderness noted. NEUROLOGIC EXAMINATION: Patient awakens to voice, alert and oriented x3. Assessment Change in mental status which has improved Low blood pressure requiring norepinephrine Mild respiratory distress Abnormal D-dimer with no evidence of PE Abnormal troponin CAD status post CABG Ischemic cardiomyopathy, EF 10-15% Status post AICD Anuria Multiple comorbid conditions MRSA infection, multiple locations Plan Bumex 1 mg p.o. twice daily Losartan 12.5 mg daily, metoprolol 12.5 mg daily Continue aspirin, The patient is at high risk for any surgical intervention at this point, long discussion with family regarding risks vs benefits. Would not recommend surgery at this time. Make consider further assessment when hemodydamically stable. Prognosis extremely guarded. We discussed the status of poor prognosis with the family. They understands and agrees with the plan of care. Family has been contemplating palliative care versus hospice care. I have provided education on this to the patient's family. I would recommend goals of care to be comfort with continuation of her current medical therapy with medications only. At this time cardiology team will sign off. Please reconsult us in case of any question. Objective - Vital Signs Vital signs: Vital Signs Temp 97.6 F 11/26/24 11:16 Pulse 86 11/26/24 13:36 Resp 16 11/26/24 11:16 BP 100/67 11/26/24 11:16 Pulse Ox 100 11/26/24 11:16 FiO2 Intake & Output 11/25/24 11/26/24 11/26/24 18:59 06:59 18:59 Intake Total 80 222 Output Total 125 220 Balance -125 80 2 Intake: Oral 80 222 Output: Urine 125 220 Other: Voiding Method Indwelling Catheter Indwelling Catheter External Catheter - Labs CBC & Chem 7: 11/25/24 10:46 11/25/24 09:54 Labs: Abnormal Lab Results - Last 24 Hours (Table) 11/25/24 11/25/24 11/26/24 Range/Units 16:15 19:56 05:48 POC Glucose (mg/dL) 309 H 400 H 237 H (70-110) mg/dL 11/26/24 Range/Units 11:07 POC Glucose (mg/dL) 280 H (70-110) mg/dL Microbiology - Last 24 Hours (Table) 11/21/24 05:17 Blood Culture - Final Blood
[2024-11-26 16:15] LABS: Glucose,Whole Blood 396 mg/dL (70-110)
--- NOTE | 2024-11-26 19:53 | P.PN ---
Subjective Patient is 84-year-old female sent in by EMS from her [facility], after being noted to be confused, lethargic, with low blood pressures. She was tachycardic with a temperature of 100.8 F. Concerns for sepsis. On arrival, she was hypotensive, fluid resuscitated with a total of 3 L crystalloid fluid. Norepinephrine was started as the blood pressure did not respond to fluid alone. Started on a combination of cefepime and vancomycin for broad-spectrum antibiotic coverage. Serial troponins were elevated, and patient was also diag nosed with acute non-ST elevation WI and started on IV heparin per protocol. 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 Of note, had a recent hospitalization back in July, for sepsis and CHF exacerbation. MRSA was isolated in her blood. SILVIANO done on 08/10/2024 did not show any vegetation. There was a severely reduced left ventricular ejection fraction of 30 to 35%, moderate mitral and tricuspid regurgitation with severe pulmonary hypertension. Mild to moderate aortic regurgitation. Treated with IV antibiotics. She also has history of ischemic cardiomyopathy, biventricular AICD, previous CABG, hypertension, hyperlipidemia, diabetes mellitus type 2, dementia, among other debilitating comorbidities. Workup in the emergency department including chest x-ray showing stable pulmonary vascular congestion with scattered infiltrates and small effusions suggestive of congestive heart failure. X-ray left foot with soft t issue wound over the heel without evidence of osseous erosion. Urinalysis was positive for pyuria and bacteria. CBC with a WBC count of 13.4, hemoglobin 9.3, platelets 439. CMP: Sodium 132, potassium 5.7, chloride 98, serum bicarb 21, BUN 76, creatinine 1.35, glucose 219. LFTs mildly elevated. Troponins elevated at 1.11, 2.2, 4.3, and 5.5 respectively. EKG showing a ventricularly paced rhythm. IV heparin continues per protocol. VBG with a pCO2 of 39 and pH of 7.38. Viral 4 Plex negative for influenza A/B, RSV, COVID of note, on her previous hospitalization in July was positive for RSV. Currently, patient is being observed in the intensive care unit. She is currently awake and alert. She is oriented to self and place. Does not recall events prior to coming to the hospital. I am told this could be her baseline. She does have dementia and [facility] Aricept [facility] the [facility]. Denies any chest pain. IV heparin continues per protocol. Blood pressure is being supported with norepinephrine which is infusing at 0.04 mcg/kg/min. Previously febrile with a Tmax of 101.9 F, and this is down and currently normothermic. Urinary catheter was placed which is draining clear urine. Normal saline to be started at 50 mL/h. pancultures are pending. Patient previously complaining of neck pain, however, denies this to me. She has a CT of the neck and chest ordered. No respiratory distress or stridor 11/21. Patient seen and examined.Labs reviewed showing WBC 9.03, hemoglobin 9, platelet count 428, sodium 137, potassium 4.4, BUN 78, creatinine 1.25. Currently on IV Levophed which is being weaned down. Currently on IV cefepime, daptomycin and Lasix drip. Complaining of leg pain. 11/22/2024 Patient remains on norepinephrine. Chest x-ray from yesterday showed interstitial edema no x-ray was done today. Patient audelia on IV Lasix drip. White count continues to improve and improved to 11 from 12 creatinine remained stable at 1.2. Patient is having good urine output REVIEW OF SYSTEMS: CONSTITUTIONAL: No fever, no malaise,. CARDIOVASCULAR: No chest pain, no palpitations, no syncope. PULMONARY: No shortness of breath, no cough, GASTROINTESTINAL: No diarrhea, no nausea, no vomiting, no abdominal pain. NEUROLOGICAL: No headaches, no weakness, 11/23 Patient currently in 368 She is awake but drowsy also she is confused cannot contribute much to the history this morning, probably also part of her delirium Patient herself denies any specific complaints Patient remains tachycardic with heart rate jumps to 103, blood pressure 102/60. Patient is afebrile and breathing at a rate of 18 to 20/min Labs reviewed, patient has stable leukocytosis 11.3 and hemoglobin 8.6 Creatinine 1.24, which is stable since admission compared to baseline 0.8-1.0 Patient remains on IV cefepime and daptomycin and Lasix drip 11/24 Patient still very lethargic and tired Somewhat tachypneic Dressing in the left leg is in place with some oozing Daughter at bedside Patient supposedly still getting IV Lasix 10 mg/h and broad-spectrum antibiotic with cefepime and daptomycin 11/25 Since crystal finisher I got a message that 3 daughters want others . To have a hospice consult When I went to see the patient 3 daughters were at bedside. Patient was awake alert looks slightly better still confused but she can answer questions she is v juan francisco tired. Still mildly tachypneic at rest. She is not getting IV Lasix anymore still on IV antibiotics. Family request to switch to oral antibiotics and discharge her soon. aquatic centre manager on the case. 11/26 Patient awake and alert, generally weak, slightly better every day She follows command mentation also at baseline She still mildly tachypneic she is making good urine output on oral Lasix 4 mg twice daily Denies any other new complaint I discussed the case with cardiology team who cleared the patient for discharge Also she is on broad-spectrum antibiotics with plan to place PICC line/midline and possible discharge tomorrow on IV antibiotics. Per ID team recommendation Discussed with staff. Possible discharge 24 to 48 hours Objective - Vital Signs Vital signs: Vital Signs Temp 97.6 F 11/26/24 15:17 Pulse 89 11/26/24 15:17 Resp 18 11/26/24 15:17 BP 97/61 11/26/24 15:17 Pulse Ox 98 11/26/24 15:17 FiO2 Intake & Output 11/26/24 11/26/24 11/27/24 06:59 18:59 06:59 Intake Total 80 340 Output Total 220 Balance 80 120 Weight 68 kg Intake: Oral 80 340 Output: Urine 220 Other: Voiding Method Indwelling Catheter External Catheter - Exam -GENERAL: The patient is alert, confused and drowsy, not in any acute distress. Well developed, well nourished. Obese HEENT: Pupils are round and equally reacting to light. EOMI. No scleral icterus. No conjunctival pallor. Normocephalic, atraumatic. No pharyngeal erythema. No thyromegaly. CARDIOVASCULAR: S1 and S2 present. No murmurs, rubs, or gallops. PULMONARY: Chest is clear to auscultation, no wheezing , no crackles. ABDOMEN: Soft, nontender, nondistended, normoactive bowel sounds. No palpable organomegaly. MUSCULOSKELETAL: No joint swelling or deformity. EXTREMITIES: No cyanosis, clubbing, or pedal edema. NEUROLOGICAL: Gross neurological examination did not reveal any focal deficits. SKIN: No rashes. no petechiae. - Labs CBC & Chem 7: 11/25/24 10:46 11/25/24 09:54 Labs: Abnormal Lab Results - Last 24 Hours (Table) 11/25/24 11/26/24 11/26/24 Range/Units 19:56 05:48 11:07 POC Glucose (mg/dL) 400 H 237 H 280 H (70-110) mg/dL 11/26/24 Range/Units 16:14 POC Glucose (mg/dL) 396 H (70-110) mg/dL Microbiology - Last 24 Hours (Table) 11/21/24 05:17 Blood Culture - Final Blood Assessment and Plan Assessment: Severe sepsis, status post septic shock, secondary to infection from the leg wounds, vertebral osteomyelitis, unknown whether patient actually had UTI on admission, Acute febrile illness, with bacteremia noted on 11/17/2024, 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, Pseudomonas aeruginosa, Proteus MirabellisHistory of MRSA bacteremia, SILVIANO done on 08/10/2024 did not show any vegetation Acute non-ST elevation WI Ischemic cardiomyopathy low ejection fraction, remains on Lasix drip Acute kidney injury History of implanted AICD/pacemaker History of coronary artery disease with previous CABG History of hypertension History of hyperlipidemia Diabetes mellitus, type II Acute kidney injury Hyperkalemia History of RSV tracheobronchitis July, Chronic normocytic, normochromic anemia Dementia Plan: Monitor vital signs Monitor CBC Monitor CMP Continue telemetry monitoring Follow-up on blood culture Strict I's and O's, daily weights Continue IV Lasix drip Currently off Levophed/pressor Currently on daptomycin and cefepime ID following Cardiology following Critical care following Labs and medication were reviewed.. Continue same treatment. Monitor labs and vitals. DVT and GI prophylaxis. Further recommendations as per clinical course of the patient
[2024-11-26 20:18] LABS: Glucose,Whole Blood 369 mg/dL (70-110)
[2024-11-27 06:11] LABS: Glucose,Whole Blood 243 mg/dL (70-110)
[2024-11-27 10:30] LABS: African American GFR (CKD) 32 (>60 ml/min/1.73 sqM); Anion Gap 13 mmol/L; Calcium 8.9 mg/dL (8.4-10.2); Carbon Dioxide 19 mmol/L (22-30); Chloride 103 mmol/L (98-107); Glucose 224 mg/dL (74-99); Non-African American GFR(CKD) 27 (>60 ml/min/1.73 sqM); Sodium 135 mmol/L (137-145)
[2024-11-27 11:07] LABS: Blood Urea Nitrogen 105 mg/dL (7-17); Potassium 5.8 mmol/L (3.5-5.1)
--- NOTE | 2024-11-27 11:20 | P.NPCON ---
History of Present Illness - Reason for Consult acute renal failure - History of Present Illness Patient is an 84-year-old female with history of CVA, coronary artery disease, dementia who was admitted to the hospital with mental status changes and hypotension. Patient was treated for septic shock. She had been on pressors and in the ICU. Source was UTI and bilateral wounds on the heels. Patient had MRSA bacteremia. She was treated with vancomycin which was discontinued on 11/19/2024 and switched to daptomycin due to elevated creatinine. Vancomycin level was 16.3 on 11/19/2024 Serum creatinine was 1.3 on initial admission, increased to 1.5 on 11/20/24 and then decreased again to 1.2 until 11/23/2024 and elevated at 1.7 on 11/27/2024 Significant hypotension noted with systolic blood pressure in the 70s on 11/23/2024. Patient is also noted to be on Toradol. Maintained on Cozaar as well. Underlying ischemic cardiomyopathy with EF 10 to 15%. Past Medical History Past Medical History: Coronary Artery Disease (CAD), Heart Failure, Dementia, Diabetes Mellitus, Hypertension, Myocardial Infarction ([place]), Pneumonia, Vascular Disorder Additional Past Medical History / Comment(s): Pt recently admitted to [facility] on 03/14/21 with CHF/L pleural effusion. Other hx: Chronic L calf wound/WCC, NIDM type II, neuropathy L foot/leg, cardiomyopathy/sees Dr Knight in [place], MIs, mild cognitive impairment, incontinence, iron anemia, hypmagnesemia, RSV in July of 2024 Last Myocardial Infarction Date:: unsure History of Any Multi-Drug Resistant Organisms: MRSA Date of last positivie culture/infection: 11/17/24 MDRO Source:: blood; Left Foot & Leg Past Surgical History: AICD, Bladder Surgery, Coronary Bypass/CABG, Heart Catheterization, Heart Catheterization With Stent, Hysterectomy, Joint Replacement, Pacemaker Additional Past Surgical History / Comment(s): 10/2020 AICD/pacer, PCI stents, 2010 CABG 3 vessel, L leg wound I&D, bkadder suspension, ovarian cyst removal, D&C, rectocele, colonoscopy, total r knee arthroplasty. Past Anesthesia/Blood Transfusion Reactions: No Reported Reaction Date of Last Stent Placement:: unknown Type of Cardiac Device: AICD Device Placement Date:: 2020 Past Psychological History: No Psychological Hx Reported Additional Psychological History / Comment(s): Patient is from [facility]. Pt is a retired nurse. Smoking Status: Never smoker Past Alcohol Use History: None Reported Past Drug Use History: None Reported - Past Family History Father Family Medical History: No Reported History Additional Family Medical History / Comment(s): Father had heart problems. He chewed tobacco, smoked and drank quit a bit of alcohol. Mother Family Medical History: Diabetes Mellitus Medications and Allergies Home Medications Medication Instructions Recorded Confirmed Type Aspirin EC [Ecotrin Low Dose] 81 mg PO DAILY@0800 03/14/21 11/17/24 History Donepezil [Aricept] 10 mg PO HS@2100 03/14/21 11/17/24 History Isosorbide Mononitrate ER [Imdur] 30 mg PO DAILY@0800 03/14/21 11/17/24 History Magnesium Oxide 400 mg PO DAILY@0800 03/14/21 11/17/24 History Benzocaine/Menthol [Dermoplast 1 spray TOPICAL BID PRN 04/16/21 11/17/24 History Pain Relieving [place]] Acetaminophen Tab [Tylenol] 650 mg PO Q6HR PRN tab 04/28/21 11/17/24 Rx Famotidine [Pepcid] 20 mg PO DAILY@0800 05/07/21 11/17/24 History INSULIN ASPART (NovoLOG) [NovoLOG 3 unit SQ BID@1100,1700 05/07/21 11/17/24 History (formulary)] L.acidoph,Paracasei, B.lactis 1 cap PO DAILY@0800 05/07/21 11/17/24 History [Probiotic] Melatonin 3 mg PO DAILY PRN 05/07/21 11/17/24 History Ondansetron [Zofran] 4 mg PO TID PRN 05/07/21 11/17/24 History Spironolactone [Aldactone] 12.5 mg PO DAILY@0800 05/07/21 11/17/24 History bisacodyL [Dulcolax] 10 mg RECTAL DAILY PRN 05/07/21 11/17/24 History HYDROcodone/APAP 5-325MG [[place] 1 tab PO BID@0800,1700 06/03/21 11/17/24 History 5-325] Atorvastatin [Lipitor] 40 mg PO HS@2100 10/23/21 11/17/24 History Empagliflozin [Jardiance] 10 mg PO DAILY@0800 10/23/21 11/17/24 History Furosemide [Lasix] 40 mg PO DAILY@0800 10/23/21 11/17/24 History Emmanuel Packet 1 packet PO BID@0800,1700 10/23/21 11/17/24 History Sacubitril/Valsartan [Entresto 24 1 tab PO BID@0800,1700 10/23/21 11/17/24 History mg-26 mg Tablet] carvediloL [Coreg] 6.25 mg PO BID@0800,1700 10/23/21 11/17/24 History Cholecalciferol (Vitamin D3) 100 mcg PO DAILY@0800 08/03/24 11/17/24 History [Vitamin D3 (50 Mcg = 2000 Iu)] Eucerin Advanced Repair Cream 1 applic TOPICAL DAILY 08/03/24 11/17/24 History Folic Acid 0.4 mg PO DAILY@0800 08/03/24 11/17/24 History INSULIN ASPART (NovoLOG) [NovoLOG See Protocol SQ ACHS 08/03/24 11/17/24 History (formulary)] Insulin Degludec [Tresiba 20 units SQ HS@2130 08/03/24 11/17/24 History Flextouch U-100 Pen] Lactulose 10 gm PO BID@0800,1700 08/03/24 11/17/24 History Lidocaine 5% Cream 1 applic TOPICAL WE PRN 08/03/24 11/17/24 History Liquacel 30 ml PO DAILY@0800 08/03/24 11/17/24 History Loperamide [Imodium] 2 mg PO Q6H PRN 08/03/24 11/17/24 History Magnesium Hydroxide [Milk of 7,200 mg PO Q2D PRN 08/03/24 11/17/24 History Magnesia Concentrate] Multivitamins, Thera [Multivitamin 1 tab PO DAILY@1700 08/03/24 11/17/24 History (formulary)] Mylanta Double Strength 10 ml PO Q4H PRN 08/03/24 11/17/24 History [id number]/5ml Patiromer Calcium Sorbitex 8.4 gm PO TH@1200 08/03/24 11/17/24 History [Veltassa] Semaglutide [Ozempic] 0.25 mg SQ WE@2130 08/03/24 11/17/24 History allopurinoL [Zyloprim] 100 mg PO DAILY@0800 08/03/24 11/17/24 History Albuterol Nebulized [Ventolin 2.5 mg INHALATION RT-TID PRN ml 08/13/24 11/17/24 Rx Nebulized] Ipratropium-Albuterol Nebulize 3 ml INHALATION RT-Q4H PRN each 08/13/24 11/17/24 Rx [Duoneb 0.5 mg-3 mg/3 ml Soln] ALPRAZolam [Xanax] 0.25 mg PO DAILY@1700 11/17/24 11/17/24 History Ascorbic Acid [Vitamin C] 250 mg PO DAILY@0811/17/24 11/17/24 History Collagenase [Santyl Ointment] 1 applic TOPICAL DAILY 11/17/24 11/17/24 History HYDROcodone/APAP 5-325MG [[place] 1 tab PO Q24H PRN 11/17/24 11/17/24 History 5-325] Hydrophilic Cream [Triad (Kerodex 1 applic TOPICAL TID 11/17/24 11/17/24 History geq)] Lidocaine 5% Cream 1 applic TOPICAL DAILY PRN 11/17/24 11/17/24 History Vashe Wound Cleanser 1 applic TOPICAL DAILY PRN 11/17/24 11/17/24 History Vashe Wound Cleanser 1 applic TOPICAL MOWEFR 11/17/24 11/17/24 History Allergies Allergy/AdvReac Type Severity Reaction Status Date / Time Sulfa (Sulfonamide Allergy Anaphylaxis Verified 11/17/24 12:17 Antibiotics) Physical Exam Vitals: Vital Signs Temp Pulse Resp BP BP Pulse Ox 11/27/24 07:43 97.7 F 108 H 18 100/49 96 11/27/24 01:46 97.5 F L 86 17 108/68 95 11/27/24 00:00 97.5 F L 95 16 95/55 93 L 11/26/24 20:00 98.3 F 83 16 103/60 96 11/26/24 15:17 97.6 F 89 18 97/61 98 11/26/24 13:36 86 11/26/24 11:16 97.6 F 86 16 100/67 100 Intake and Output 11/26/24 11/27/24 11/27/24 22:59 06:59 14:59 Intake Total 118 Output Total 235 Balance -117 Intake: Oral 118 Output: Urine 150 Post Void Residual 85 Other: Voiding Method External Catheter External Catheter # Voids 1 Weight 68 kg Patient is awake, comfortable, no acute distress Examination of the heart S1 and S2 Examination of the lungs bilateral breath sounds are heard Abdomen is soft nontender Examination of lower extremities shows bilateral legs to be wrapped Examination shows contracture in left upper extremity Results - Lab Results Most recent lab results Calcium 8.9 mg/dL (8.4-10.2) 11/27/24 09:59 Magnesium 2.2 mg/dL (1.6-2.3) 11/25/24 09:54 11/25/24 10:46 11/27/24 09:59 Assessment and Plan Assessment: 1. Acute kidney injury, nonoliguric, likely ATN from significant hypotension in the setting of use of NSAIDs and angiotensin receptor blockers. UA on admission suggestive of UTI. 2. Septic shock from MRSA bacteremia related to left heel wound 3. History of CVA 4. Hyperkalemia associated with acute kidney injury and use of angiotensin receptor blockers and NSAIDs 5. Nongap metabolic acidosis associated with acute kidney injury Plan: JAY Toradol JAY Rivero Lokelcyn x 1 Check bladder scan Continue antibiotics Continue with Bumex for now Repeat labs in a.m. Okay to proceed with PICC line Thank you for the consultation. We will continue to follow the patient with you during her hospitalization.
[2024-11-27 11:30] LABS: Glucose,Whole Blood 266 mg/dL (70-110)
[2024-11-27] MEDS: SODIUM ZIRCONIUM CYCLOSILICATE 10 GM PACKET PO SCH (12:17)
--- NOTE | 2024-11-27 16:01 | P.PN ---
Subjective Progress Note Date: 11/26/24 Principal diagnosis: Reason for follow-up is left heel infected pressure ulcer and bacteremia Patient is a 84-year-old female with a past medical history significant for Coronary Artery Disease (CAD), Heart Failure, Dementia, Diabetes Mellitus, Hypertension, Myocardial Infarction ([place]), Pneumonia, Vascular Disorder, history of left heel infected pressure ulcer and care home resident patient has been sent to the from the care home as the patient was having mental status changes fever and elevated white count. On today's evaluation that is 11/26/2024,the patient remains to be afebrile, patient is on room air not requiring supplemental oxygen patient seen to be slightly more awake today no chest pain no cough no vomiting or diarrhea reported by the family the bedside. No lab draw today Objective - Vital Signs Vital signs: Vital Signs Temp 97.6 F 11/26/24 11:16 Pulse 86 11/26/24 13:36 Resp 16 11/26/24 11:16 BP 100/67 11/26/24 11:16 Pulse Ox 100 11/26/24 11:16 FiO2 Intake & Output 11/25/24 11/26/24 11/26/24 18:59 06:59 18:59 Intake Total 80 222 Output Total 125 220 Balance -125 80 2 Weight 68 kg Intake: Oral 80 222 Output: Urine 125 220 Other: Voiding Method Indwelling Catheter Indwelling Catheter External Catheter - Exam GENERAL DESCRIPTION: An elderly female lying in bed in no distress RESPIRATORY SYSTEM: Unlabored breathing , decreased breath sounds at bases HEART: S1 S2 regular rate and rhythm , ABDOMEN: Soft , no tenderness EXTREMITIES: Left wound is currently dressed - Labs CBC & Chem 7: 11/25/24 10:46 11/27/24 09:59 Labs: Abnormal Lab Results - Last 24 Hours (Table) 11/25/24 11/25/24 11/26/24 Range/Units 16:15 19:56 05:48 POC Glucose (mg/dL) 309 H 400 H 237 H (70-110) mg/dL 11/26/24 Range/Units 11:07 POC Glucose (mg/dL) 280 H (70-110) mg/dL Microbiology - Last 24 Hours (Table) 11/21/24 05:17 Blood Culture - Final Blood Assessment and Plan (1) Non healing left heel wound Current Visit: Yes Status: Acute Code(s): S91.302A - UNSPECIFIED OPEN WOUND, LEFT FOOT, INITIAL ENCOUNTER SNOMED Code(s): 417501707 (2) Septic shock Current Visit: Yes Status: Acute Code(s): A41.9 - SEPSIS, UNSPECIFIED ORGANISM; R65.21 - SEVERE SEPSIS WITH SEPTIC SHOCK SNOMED Code(s): 22680279 (3) Urinary tract infection Current Visit: Yes Status: Acute Code(s): N39.0 - URINARY TRACT INFECTION, SITE NOT SPECIFIED SNOMED Code(s): 24220943 (4) Bacteremia Current Visit: Yes Status: Acute Code(s): R78.81 - BACTEREMIA SNOMED Code(s): 5795276 (5) Vertebral osteomyelitis Current Visit: Yes Status: Acute Code(s): M46.20 - OSTEOMYELITIS OF VERTEBRA, SITE UNSPECIFIED SNOMED Code(s): 236114192 Plan: 1patient presented hospital with sepsis in this patient who did have fever tachycardia tachypnea hypotension elevated white count meeting criteria for SIRS source is likely urinary as the patient has significantly positive UA plus minus infected left heel pressure ulcer with a previous history of MRSA infection to the left heel 2-sulfa allergy 3-blood cultures currently growing MRSA left heel culture currently growing MRSA's Proteus and Pseudomonas 4patient also have a destructive changes at C3-C4 with a question of possible discitis/osteomyelitis patient is concerned to be high surgical risk for surgery orthopedics is on standby 5-patient is afebrile patient white count is slightly up today and will monitor closely, repeat blood culture so far negative 6patient currently be treated with cefepime and daptomycin with the family interested in continuation of antibiotic will order PICC line Dictation was produced using [employer] dictation software. please excuse any grammatical, word or spelling errors. Time with Patient: Less than 30
--- NOTE | 2024-11-27 16:02 | P.PN ---
Subjective Progress Note Date: 11/27/24 Principal diagnosis: Reason for follow-up is left heel infected pressure ulcer and bacteremia Patient is a 84-year-old female with a past medical history significant for Coronary Artery Disease (CAD), Heart Failure, Dementia, Diabetes Mellitus, Hypertension, Myocardial Infarction ([place]), Pneumonia, Vascular Disorder, history of left heel infected pressure ulcer and care home resident patient has been sent to the from the care home as the patient was having mental status changes fever and elevated white count. On today's evaluation that is 11/27/2024, the patient continues to be afebrile, the patient is on room air and breathing comfortably, the Pt seem to be slightly more awake alert today she is breathing comfortably no chest pain no cough no abdominal pain or diarrhea. Patient did have a creatinine 1.72 BUN of 105 blood culture repeat has been negative Objective - Vital Signs Vital signs: Vital Signs Temp 97.9 F 11/27/24 14:22 Pulse 81 11/27/24 14:22 Resp 18 11/27/24 14:22 BP 107/64 11/27/24 14:22 Pulse Ox 95 11/27/24 14:22 FiO2 Intake & Output 11/26/24 11/27/24 11/27/24 18:59 06:59 18:59 Intake Total 340 Output Total 220 235 133 Balance 120 -235 -133 Weight 68 kg Intake: Oral 340 Output: Urine 220 150 Post Void Residual 85 133 Other: Voiding Method External Catheter External Catheter External Catheter # Voids 1 - Exam GENERAL DESCRIPTION: An elderly female lying in bed in no distress RESPIRATORY SYSTEM: Unlabored breathing , decreased breath sounds at bases HEART: S1 S2 regular rate and rhythm , ABDOMEN: Soft , no tenderness EXTREMITIES: Left wound is currently dressed - Labs CBC & Chem 7: 11/25/24 10:46 11/27/24 09:59 Labs: Abnormal Lab Results - Last 24 Hours (Table) 11/26/24 11/26/24 11/27/24 Range/Units 16:14 20:16 06:09 Sodium (137-145) mmol/L Potassium (3.5-5.1) mmol/L Carbon Dioxide (22-30) mmol/L BUN (7-17) mg/dL Creatinine (0.52-1.04) mg/dL Glucose (74-99) mg/dL POC Glucose (mg/dL) 396 H 369 H 243 H (70-110) mg/dL 11/27/24 11/27/24 Range/Units 09:59 11:25 Sodium 135 L (137-145) mmol/L Potassium 5.8 H (3.5-5.1) mmol/L Carbon Dioxide 19 L (22-30) mmol/L BUN 105 H* (7-17) mg/dL Creatinine 1.72 H (0.52-1.04) mg/dL Glucose 224 H (74-99) mg/dL POC Glucose (mg/dL) 266 H (70-110) mg/dL Microbiology - Last 24 Hours (Table) 11/21/24 05:17 Blood Culture - Final Blood Assessment and Plan (1) Non healing left heel wound Current Visit: Yes Status: Acute Code(s): S91.302A - UNSPECIFIED OPEN WOUND, LEFT FOOT, INITIAL ENCOUNTER SNOMED Code(s): 784693715 (2) Septic shock Current Visit: Yes Status: Acute Code(s): A41.9 - SEPSIS, UNSPECIFIED ORGANISM; R65.21 - SEVERE SEPSIS WITH SEPTIC SHOCK SNOMED Code(s): 96031626 (3) Urinary tract infection Current Visit: Yes Status: Acute Code(s): N39.0 - URINARY TRACT INFECTION, SITE NOT SPECIFIED SNOMED Code(s): 90382978 (4) Bacteremia Current Visit: Yes Status: Acute Code(s): R78.81 - BACTEREMIA SNOMED Code(s): 1222554 (5) Vertebral osteomyelitis Current Visit: Yes Status: Acute Code(s): M46.20 - OSTEOMYELITIS OF VERTEBRA, SITE UNSPECIFIED SNOMED Code(s): 884224315 Plan: 1patient presented hospital with sepsis in this patient who did have fever tachycardia tachypnea hypotension elevated white count meeting criteria for SIRS source is likely urinary as the patient has significantly positive UA plus minus infected left heel pressure ulcer with a previous history of MRSA infection to the left heel 2-sulfa allergy 3-blood cultures currently growing MRSA left heel culture currently growing MRSA's Proteus and Pseudomonas 4patient also have a destructive changes at C3-C4 with a question of possible discitis/osteomyelitis patient is concerned to be high surgical risk for surgery orthopedics is on standby 5-patient is afebrile patient white count is slightly up today and will monitor closely, repeat blood culture so far negative 6patient currently be treated with cefepime and daptomycin did have worsening of her kidney numbers especially BUN nephrology has been consulted awaiting for PICC line placement. Dictation was produced using [employer] dictation software. please excuse any grammatical, word or spelling errors. Time with Patient: Less than 30
[2024-11-27 17:04] LABS: Glucose,Whole Blood 276 mg/dL (70-110)
--- NOTE | 2024-11-27 19:38 | P.PN ---
Subjective Patient is 84-year-old female sent in by EMS from her correction, [facility], after being noted to be confused, lethargic, with low blood pressures. She was tachycardic with a temperature of 100.8 F. Concerns for sepsis. On arrival, she was hypotensive, fluid resuscitated with a total of 3 L crystalloid fluid. Norepinephrine was started as the blood pressure did not respond to fluid alone. Started on a combination of cefepime and vancomycin for broad-spectrum antibiotic coverage. Serial troponins were elevated, and patient was also diag nosed with acute non-ST elevation HI and started on IV heparin per protocol. 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 Of note, had a recent hospitalization back in July, for sepsis and CHF exacerbation. MRSA was isolated in her blood. SILVIANO done on 08/10/2024 did not show any vegetation. There was a severely reduced left ventricular ejection fraction of 30 to 35%, moderate mitral and tricuspid regurgitation with severe pulmonary hypertension. Mild to moderate aortic regurgitation. Treated with IV antibiotics. She also has history of ischemic cardiomyopathy, biventricular AICD, previous CABG, hypertension, hyperlipidemia, diabetes mellitus type 2, dementia, among other debilitating comorbidities. Workup in the emergency department including chest x-ray showing stable pulmonary vascular congestion with scattered infiltrates and small effusions suggestive of congestive heart failure. X-ray left foot with soft t issue wound over the heel without evidence of osseous erosion. Urinalysis was positive for pyuria and bacteria. CBC with a WBC count of 13.4, hemoglobin 9.3, platelets 439. CMP: Sodium 132, potassium 5.7, chloride 98, serum bicarb 21, BUN 76, creatinine 1.35, glucose 219. LFTs mildly elevated. Troponins elevated at 1.11, 2.2, 4.3, and 5.5 respectively. EKG showing a ventricularly paced rhythm. IV heparin continues per protocol. VBG with a pCO2 of 39 and pH of 7.38. Viral 4 Plex negative for influenza A/B, RSV, COVID of note, on her previous hospitalization in July was positive for RSV. Currently, patient is being observed in the intensive care unit. She is currently awake and alert. She is oriented to self and place. Does not recall events prior to coming to the hospital. I am told this could be her baseline. She does have dementia and takes Aricept at the correction. Denies any chest pain. IV heparin continues per protocol. Blood pressure is being supported with norepinephrine which is infusing at 0.04 mcg/kg/min. Previously febrile with a Tmax of 101.9 F, and this is down and currently normothermic. Urinary catheter was placed which is draining clear urine. Normal saline to be started at 50 mL/h. pancultures are pending. Patient previously complaining of neck pain, however, denies this to me. She has a CT of the neck and chest ordered. No respiratory distress or stridor 11/21. Patient seen and examined.Labs reviewed showing WBC 9.03, hemoglobin 9, platelet count 428, sodium 137, potassium 4.4, BUN 78, creatinine 1.25. Currently on IV Levophed which is being weaned down. Currently on IV cefepime, daptomycin and Lasix drip. Complaining of leg pain. 11/22/2024 Patient remains on norepinephrine. Chest x-ray from yesterday showed interstitial edema no x-ray was done today. Patient audelia on IV Lasix drip. White count continues to improve and improved to 11 from 12 creatinine remained stable at 1.2. Patient is having good urine output REVIEW OF SYSTEMS: CONSTITUTIONAL: No fever, no malaise,. CARDIOVASCULAR: No chest pain, no palpitations, no syncope. PULMONARY: No shortness of breath, no cough, GASTROINTESTINAL: No diarrhea, no nausea, no vomiting, no abdominal pain. NEUROLOGICAL: No headaches, no weakness, 11/23 Patient currently in 368 She is awake but drowsy also she is confused cannot contribute much to the history this morning, probably also part of her delirium Patient herself denies any specific complaints Patient remains tachycardic with heart rate jumps to 103, blood pressure 102/60. Patient is afebrile and breathing at a rate of 18 to 20/min Labs reviewed, patient has stable leukocytosis 11.3 and hemoglobin 8.6 Creatinine 1.24, which is stable since admission compared to baseline 0.8-1.0 Patient remains on IV cefepime and daptomycin and Lasix drip 11/24 Patient still very lethargic and tired Somewhat tachypneic Dressing in the left leg is in place with some oozing Daughter at bedside Patient supposedly still getting IV Lasix 10 mg/h and broad-spectrum antibiotic with cefepime and daptomycin 11/25 Since patient support specialist I got a message that 3 daughters want others . To have a hospice consult When I went to see the patient 3 daughters were at bedside. Patient was awake alert looks slightly better still confused but she can answer questions she is v juan francisco tired. Still mildly tachypneic at rest. She is not getting IV Lasix anymore still on IV antibiotics. Family request to switch to oral antibiotics and discharge her soon. financial project manager on the case. 11/26 Patient awake and alert, generally weak, slightly better every day She follows command mentation also at baseline She still mildly tachypneic she is making good urine output on oral Lasix 4 mg twice daily Denies any other new complaint I discussed the case with cardiology team who cleared the patient for discharge Also she is on broad-spectrum antibiotics with plan to place PICC line/midline and possible discharge tomorrow on IV antibiotics. Per ID team recommendation Discussed with staff. Possible discharge 24 to 48 hours 11/27 Patient still lethargic and somewhat confused and drowsy, she opens her eyes to verbal stimuli's and answer some questions and follow some commands but go back to sleep She is mildly tachypneic but breathing looks better than 2 to 3 days ago Patient complains from constipation and stool softeners provided as well as laxative Patient require PICC line for IV antibiotics upon discharge, nephrology consult was obtained for PICC line clearance. Patient was found to have acute kidney injury with creatinine went up 1.2 up to 1.7. Potassium 5.8. Patient received 1 dose of Lokelma, TIM inhibitor was held as well as Toradol. Will continue monitoring. Patient continued on Lasix. Patient may benefit from ECF upon discharge. Prognosis guarded Daughter at bedside informed me they do not want hospice discussed with the daughters and the manager rn case for palliative consult as an outpatient and they agreeable. Also family would consider palliative in case she deteriorate to move to hospice as per my discussion with the daughter today. Objective - Vital Signs Vital signs: Vital Signs Temp 97.9 F 11/27/24 14:22 Pulse 81 11/27/24 14:22 Resp 18 11/27/24 14:22 BP 107/64 11/27/24 14:22 Pulse Ox 95 11/27/24 14:22 FiO2 Intake & Output 11/27/24 11/27/24 11/28/24 06:59 18:59 06:59 Output Total 235 1133 Balance -235 -1133 Output: Urine 150 1000 Post Void Residual 85 133 Other: Voiding Method External Catheter External Catheter # Voids 1 - Exam -GENERAL: The patient is alert, confused and drowsy, not in any acute distress. Well developed, well nourished. Obese HEENT: Pupils are round and equally reacting to light. EOMI. No scleral icterus. No conjunctival pallor. Normocephalic, atraumatic. No pharyngeal erythema. No thyromegaly. CARDIOVASCULAR: S1 and S2 present. No murmurs, rubs, or gallops. PULMONARY: Chest is clear to auscultation, no wheezing , no crackles. ABDOMEN: Soft, nontender, nondistended, normoactive bowel sounds. No palpable organomegaly. MUSCULOSKELETAL: No joint swelling or deformity. EXTREMITIES: No cyanosis, clubbing, or pedal edema. NEUROLOGICAL: Gross neurological examination did not reveal any focal deficits. SKIN: No rashes. no petechiae. - Labs CBC & Chem 7: 11/25/24 10:46 11/27/24 09:59 Labs: Abnormal Lab Results - Last 24 Hours (Table) 11/26/24 11/27/24 11/27/24 Range/Units 20:16 06:09 09:59 Sodium 135 L (137-145) mmol/L Potassium 5.8 H (3.5-5.1) mmol/L Carbon Dioxide 19 L (22-30) mmol/L BUN 105 H* (7-17) mg/dL Creatinine 1.72 H (0.52-1.04) mg/dL Glucose 224 H (74-99) mg/dL POC Glucose (mg/dL) 369 H 243 H (70-110) mg/dL 11/27/24 11/27/24 Range/Units : 16:57 Sodium (137-145) mmol/L Potassium (3.5-5.1) mmol/L Carbon Dioxide (22-30) mmol/L BUN (7-17) mg/dL Creatinine (0.52-1.04) mg/dL Glucose (74-99) mg/dL POC Glucose (mg/dL) 266 H 276 H (70-110) mg/dL Assessment and Plan Assessment: Severe sepsis, status post septic shock, secondary to infection from the leg wounds, vertebral osteomyelitis, unknown whether patient actually had UTI on admission, Acute febrile illness, with bacteremia noted on 11/17/2024, 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, Pseudomonas aeruginosa, Proteus MirabellisHistory of MRSA bacteremia, SILVIANO done on 08/10/2024 did not show any vegetation Acute non-ST elevation HI Ischemic cardiomyopathy low ejection fraction, remains on Lasix drip Acute kidney injury History of implanted AICD/pacemaker History of coronary artery disease with previous CABG History of hypertension History of hyperlipidemia Diabetes mellitus, type II Acute kidney injury Hyperkalemia History of RSV tracheobronchitis July, Chronic normocytic, normochromic anemia Dementia Plan: Nephrology consult Monitor CBC Monitor CMP Continue telemetry monitoring Follow-up on blood culture Strict I's and O's, daily weights Continue IV Lasix drip Currently off Levophed/pressor Currently on daptomycin and cefepime ID following Cardiology following Critical care following Labs and medication were reviewed.. Continue same treatment. Monitor labs and vitals. DVT and GI prophylaxis. Further recommendations as per clinical course of the patient
[2024-11-27] MEDS: DOCUSATE 100 MG CAP PO SCH (19:56)
[2024-11-27 20:52] LABS: Glucose,Whole Blood 226 mg/dL (70-110)
[2024-11-28 06:10] LABS: Glucose,Whole Blood 186 mg/dL (70-110)
[2024-11-28 08:43] LABS: Basophils # (A) 0.05 X 10*3/uL (0.00-0.10); Basophils % (A) 0.4 %; Eosinophils # (A) 0.16 X 10*3/uL (0.04-0.35); Eosinophils % (A) 1.4 %; HCT 31.3 % (37.2-46.3); HGB 9.1 g/dL (12.0-15.0); Immature Grans, Automated 0.80 %; Lymphocytes # (A) 1.27 X 10*3/uL (0.90-5.00); Lymphocytes % (A) 11.0 %; MCH 26.4 pg (27.0-32.0); MCHC 29.1 g/dL (32.0-37.0); MCV 90.7 FL (80.0-97.0); Monocytes # (A) 0.69 X 10*3/uL (0.20-1.00); Monocytes % (A) 6.0 %; NRBC Per 100 WBC 0.03 X 10*3/uL (0.00-0.01); Neutrophils # (A) 9.31 X 10*3/uL (1.80-7.70); Neutrophils % (A) 80.4 %; Platelet Count 325 X 10*3/uL (140-440); RBC 3.45 X 10*6/uL (4.10-5.20); RDW 20.0 % (11.5-14.5); WBC 11.57 X 10*3/uL (4.50-10.00)
[2024-11-28 11:15] LABS: ALT 128 U/L (8-44); AST 21 U/L (13-35); Albumin 3.0 g/dL (3.8-4.9); Albumin/Globulin Ratio 1.11 Ratio (1.60-3.17); Alkaline Phosphatase 165 U/L (41-126); Anion Gap 15.70 mmol/L (4.00-12.00); BUN/Creat Ratio 46.15 Ratio (12.00-20.00); Bilirubin,Unconjugated 0.08 mg/dL (0.20-1.00); Blood Urea Nitrogen 92.3 mg/dL (9.0-27.0); Calcium 8.6 mg/dL (8.7-10.3); Carbon Dioxide 18.3 mmol/L (21.6-31.8); Chloride 103 mmol/L (96-109); Globulin 2.7 g/dL (1.6-3.3); Glucose 151 mg/dL (70-110); Potassium 4.7 mmol/L (3.5-5.5); Sodium 137 mmol/L (135-145); Total Protein 5.7 g/dL (6.2-8.2)
[2024-11-28 11:36] LABS: Glucose,Whole Blood 171 mg/dL (70-110)
--- NOTE | 2024-11-28 12:39 | P.PN ---
Subjective Progress Note Date: 11/28/24 Patient seen in follow-up for MEAGHAN. Patient more confused per family yesterday and today. Poor oral intake. Patient is comfortable, no acute distress Examination of the heart S1 and S2 Examination of the lungs bilateral breath sounds are heard Abdomen is soft nontender Examination of lower extremities shows bilateral legs to be wrapped Objective - Vital Signs Vital signs: Vital Signs Temp 97.4 F L 11/28/24 08:09 Pulse 61 11/28/24 08:09 Resp 15 11/28/24 08:09 BP 87/48 11/28/24 08:09 Pulse Ox 100 11/28/24 08:09 FiO2 Intake & Output 11/27/24 11/28/24 11/28/24 18:59 06:59 18:59 Output Total 1133 100 Balance -1133 -100 Output: Urine 1000 100 Post Void Residual 133 Other: Voiding Method External Catheter External Catheter External Catheter # Bowel Movements 1 - Labs CBC & Chem 7: 11/28/24 03:02 11/28/24 03:02 Labs: Abnormal Lab Results - Last 24 Hours (Table) 11/27/24 11/27/24 11/28/24 Range/Units 16:57 20:51 03:02 WBC 11.57 H (4.50-10.00) X 10*3/uL RBC 3.45 L (4.10-5.20) X 10*6/uL Hgb 9.1 L (12.0-15.0) g/dL Hct 31.3 L (37.2-46.3) % MCH 26.4 L (27.0-32.0) pg MCHC 29.1 L (32.0-37.0) g/dL RDW 20.0 H (11.5-14.5) % Immature Gran # 0.09 H (0.00-0.04) X 10*3/uL Neutrophils # 9.31 H (1.80-7.70) X 10*3/uL NRBC/100 WBC Diff 0.03 H (0.00-0.01) X 10*3/uL Carbon Dioxide (21.6-31.8) mmol/L Anion Gap (4.00-12.00) mmol/L BUN (9.0-27.0) mg/dL Creatinine (0.6-1.5) mg/dL Est GFR (CKD-EPI) (>=60) BUN/Creatinine Ratio (12.00-20.00) Ratio Glucose (70-110) mg/dL POC Glucose (mg/dL) 276 H 226 H (70-110) mg/dL Calcium (8.7-10.3) mg/dL Unconjugated Bilirubin (0.20-1.00) mg/dL ALT (8-44) U/L Alkaline Phosphatase (41-126) U/L Total Protein (6.2-8.2) g/dL Albumin (3.8-4.9) g/dL Albumin/Globulin Ratio (1.60-3.17) Ratio 11/28/24 11/28/24 11/28/24 Range/Units 03:02 06:09 11:34 WBC (4.50-10.00) X 10*3/uL RBC (4.10-5.20) X 10*6/uL Hgb (12.0-15.0) g/dL Hct (37.2-46.3) % MCH (27.0-32.0) pg MCHC (32.0-37.0) g/dL RDW (11.5-14.5) % Immature Gran # (0.00-0.04) X 10*3/uL Neutrophils # (1.80-7.70) X 10*3/uL NRBC/100 WBC Diff (0.00-0.01) X 10*3/uL Carbon Dioxide 18.3 L (21.6-31.8) mmol/L Anion Gap 15.70 H (4.00-12.00) mmol/L BUN 92.3 H (9.0-27.0) mg/dL Creatinine 2.0 H (0.6-1.5) mg/dL Est GFR (CKD-EPI) 24 L (>=60) BUN/Creatinine Ratio 46.15 H (12.00-20.00) Ratio Glucose 151 H (70-110) mg/dL POC Glucose (mg/dL) 186 H 171 H (70-110) mg/dL Calcium 8.6 L (8.7-10.3) mg/dL Unconjugated Bilirubin 0.08 L (0.20-1.00) mg/dL ALT 128 H (8-44) U/L Alkaline Phosphatase 165 H (41-126) U/L Total Protein 5.7 L (6.2-8.2) g/dL Albumin 3.0 L (3.8-4.9) g/dL Albumin/Globulin Ratio 1.11 L (1.60-3.17) Ratio Assessment and Plan Assessment: 1. Acute kidney injury, nonoliguric, likely ATN from significant hypotension in the setting of use of NSAIDs and angiotensin receptor blockers. UA on admission suggestive of UTI. Creatinine elevated at 2.0 today. PVR negative. 2. Septic shock from MRSA bacteremia related to left heel wound 3. History of CVA 4. Hyperkalemia associated with acute kidney injury and use of angiotensin receptor blockers and NSAIDs 5. Nongap metabolic acidosis associated with acute kidney injury Plan: Off Toradol and Cozaar Potassium improved Hold Bumex due to rise creatinine and poor PO intake and low BP Continue antibiotics Daily BMP
--- NOTE | 2024-11-28 16:20 | P.PN ---
Subjective Progress Note Date: 11/28/24 Principal diagnosis: Reason for follow-up is left heel infected pressure ulcer and bacteremia Patient is a 84-year-old female with a past medical history significant for Coronary Artery Disease (CAD), Heart Failure, Dementia, Diabetes Mellitus, Hypertension, Myocardial Infarction (NC), Pneumonia, Vascular Disorder, history of left heel infected pressure ulcer and residential resident patient has been sent to the from the residential as the patient was having mental status changes fever and elevated white count. On today's evaluation that is 11/29/2023, patient did have a temperature of 97.4 F this afternoon and denies having any chills, patient is on room air and breathing comfortably no chest pain or cough, the patient did not have any nausea vomiting abdominal pain or any diarrhea. Patient white was 11.57, creatinine is 2.0 but with repeat has been negative Objective - Vital Signs Vital signs: Vital Signs Temp 97.4 F L 11/28/24 13:35 Pulse 86 11/28/24 13:35 Resp 15 11/28/24 13:35 BP 105/59 11/28/24 13:35 Pulse Ox 100 11/28/24 13:35 FiO2 Intake & Output 11/27/24 11/28/24 11/28/24 18:59 06:59 18:59 Output Total 1133 100 Balance -1133 -100 Output: Urine 1000 100 Post Void Residual 133 Other: Voiding Method External Catheter External Catheter External Catheter # Bowel Movements 1 - Exam GENERAL DESCRIPTION: An elderly female lying in bed in no distress RESPIRATORY SYSTEM: Unlabored breathing , decreased breath sounds at bases HEART: S1 S2 regular rate and rhythm , ABDOMEN: Soft , no tenderness EXTREMITIES: Left wound is currently dressed - Labs CBC & Chem 7: 11/28/24 03:02 11/28/24 03:02 Labs: Abnormal Lab Results - Last 24 Hours (Table) 11/27/24 11/27/24 11/28/24 Range/Units 16:57 20:51 03:02 WBC 11.57 H (4.50-10.00) X 10*3/uL RBC 3.45 L (4.10-5.20) X 10*6/uL Hgb 9.1 L (12.0-15.0) g/dL Hct 31.3 L (37.2-46.3) % MCH 26.4 L (27.0-32.0) pg MCHC 29.1 L (32.0-37.0) g/dL RDW 20.0 H (11.5-14.5) % Immature Gran # 0.09 H (0.00-0.04) X 10*3/uL Neutrophils # 9.31 H (1.80-7.70) X 10*3/uL NRBC/100 WBC Diff 0.03 H (0.00-0.01) X 10*3/uL Carbon Dioxide (21.6-31.8) mmol/L Anion Gap (4.00-12.00) mmol/L BUN (9.0-27.0) mg/dL Creatinine (0.6-1.5) mg/dL Est GFR (CKD-EPI) (>=60) BUN/Creatinine Ratio (12.00-20.00) Ratio Glucose (70-110) mg/dL POC Glucose (mg/dL) 276 H 226 H (70-110) mg/dL Calcium (8.7-10.3) mg/dL Unconjugated Bilirubin (0.20-1.00) mg/dL ALT (8-44) U/L Alkaline Phosphatase (41-126) U/L Total Protein (6.2-8.2) g/dL Albumin (3.8-4.9) g/dL Albumin/Globulin Ratio (1.60-3.17) Ratio 11/28/24 11/28/24 11/28/24 Range/Units 03:02 06:09 11:34 WBC (4.50-10.00) X 10*3/uL RBC (4.10-5.20) X 10*6/uL Hgb (12.0-15.0) g/dL Hct (37.2-46.3) % MCH (27.0-32.0) pg MCHC (32.0-37.0) g/dL RDW (11.5-14.5) % Immature Gran # (0.00-0.04) X 10*3/uL Neutrophils # (1.80-7.70) X 10*3/uL NRBC/100 WBC Diff (0.00-0.01) X 10*3/uL Carbon Dioxide 18.3 L (21.6-31.8) mmol/L Anion Gap 15.70 H (4.00-12.00) mmol/L BUN 92.3 H (9.0-27.0) mg/dL Creatinine 2.0 H (0.6-1.5) mg/dL Est GFR (CKD-EPI) 24 L (>=60) BUN/Creatinine Ratio 46.15 H (12.00-20.00) Ratio Glucose 151 H (70-110) mg/dL POC Glucose (mg/dL) 186 H 171 H (70-110) mg/dL Calcium 8.6 L (8.7-10.3) mg/dL Unconjugated Bilirubin 0.08 L (0.20-1.00) mg/dL ALT 128 H (8-44) U/L Alkaline Phosphatase 165 H (41-126) U/L Total Protein 5.7 L (6.2-8.2) g/dL Albumin 3.0 L (3.8-4.9) g/dL Albumin/Globulin Ratio 1.11 L (1.60-3.17) Ratio Assessment and Plan (1) Non healing left heel wound Current Visit: Yes Status: Acute Code(s): S91.302A - UNSPECIFIED OPEN WOUND, LEFT FOOT, INITIAL ENCOUNTER SNOMED Code(s): 829481637 (2) Septic shock Current Visit: Yes Status: Acute Code(s): A41.9 - SEPSIS, UNSPECIFIED ORGANISM; R65.21 - SEVERE SEPSIS WITH SEPTIC SHOCK SNOMED Code(s): 12074251 (3) Urinary tract infection Current Visit: Yes Status: Acute Code(s): N39.0 - URINARY TRACT INFECTION, SITE NOT SPECIFIED SNOMED Code(s): 73256777 (4) Bacteremia Current Visit: Yes Status: Acute Code(s): R78.81 - BACTEREMIA SNOMED Code(s): 8151669 (5) Vertebral osteomyelitis Current Visit: Yes Status: Acute Code(s): M46.20 - OSTEOMYELITIS OF VERTEBRA, SITE UNSPECIFIED SNOMED Code(s): 679183366 Plan: 1patient presented hospital with sepsis in this patient who did have fever tachycardia tachypnea hypotension elevated white count meeting criteria for SIRS source is likely urinary as the patient has significantly positive UA plus minus infected left heel pressure ulcer with a previous history of MRSA infection to the left heel 2-sulfa allergy 3-blood cultures currently growing MRSA left heel culture currently growing MRSA's Proteus and Pseudomonas 4patient also have a destructive changes at C3-C4 with a question of possible discitis/osteomyelitis patient is concerned to be high surgical risk for surgery orthopedics is on standby 5-patient is afebrile patient repeat blood culture so far negative 6patient currently be treated with cefepime and daptomycin, currently waiting for PICC line placement, daughter at the bedside question answered Dictation was produced using [employer] dictation software. please excuse any grammatical, word or spelling errors. Time with Patient: Less than 30
[2024-11-28 17:06] LABS: Glucose,Whole Blood 206 mg/dL (70-110)
--- NOTE | 2024-11-28 17:24 | P.PN ---
Subjective Patient is 84-year-old female sent in by EMS from her pen[facility], [facility], after being noted to be confused, lethargic, with low blood pressures. She was tachycardic with a temperature of 100.8 F. Concerns for sepsis. On arrival, she was hypotensive, fluid resuscitated with a total of 3 L crystalloid fluid. Norepinephrine was started as the blood pressure did not respond to fluid alone. Started on a combination of cefepime and vancomycin for broad-spectrum antibiotic coverage. Serial troponins were elevated, and patient was also diag nosed with acute non-ST elevation NV and started on IV heparin per protocol. 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 Of note, had a recent hospitalization back in July, for sepsis and CHF exacerbation. MRSA was isolated in her blood. SILVIANO done on 08/10/2024 did not show any vegetation. There was a severely reduced left ventricular ejection fraction of 30 to 35%, moderate mitral and tricuspid regurgitation with severe pulmonary hypertension. Mild to moderate aortic regurgitation. Treated with IV antibiotics. She also has history of ischemic cardiomyopathy, biventricular AICD, previous CABG, hypertension, hyperlipidemia, diabetes mellitus type 2, dementia, among other debilitating comorbidities. Workup in the emergency department including chest x-ray showing stable pulmonary vascular congestion with scattered infiltrates and small effusions suggestive of congestive heart failure. X-ray left foot with soft t issue wound over the heel without evidence of osseous erosion. Urinalysis was positive for pyuria and bacteria. CBC with a WBC count of 13.4, hemoglobin 9.3, platelets 439. CMP: Sodium 132, potassium 5.7, chloride 98, serum bicarb 21, BUN 76, creatinine 1.35, glucose 219. LFTs mildly elevated. Troponins elevated at 1.11, 2.2, 4.3, and 5.5 respectively. EKG showing a ventricularly paced rhythm. IV heparin continues per protocol. VBG with a pCO2 of 39 and pH of 7.38. Viral 4 Plex negative for influenza A/B, RSV, COVID of note, on her previous hospitalization in July was positive for RSV. Currently, patient is being observed in the intensive care unit. She is currently awake and alert. She is oriented to self and place. Does not recall events prior to coming to the hospital. I am told this could be her baseline. She does have dementia and [facility] Aricept [facility] the [facility]. Denies any chest pain. IV heparin continues per protocol. Blood pressure is being supported with norepinephrine which is infusing at 0.04 mcg/kg/min. Previously febrile with a Tmax of 101.9 F, and this is down and currently normothermic. Urinary catheter was placed which is draining clear urine. Normal saline to be started at 50 mL/h. pancultures are pending. Patient previously complaining of neck pain, however, denies this to me. She has a CT of the neck and chest ordered. No respiratory distress or stridor 11/21. Patient seen and examined.Labs reviewed showing WBC 9.03, hemoglobin 9, platelet count 428, sodium 137, potassium 4.4, BUN 78, creatinine 1.25. Currently on IV Levophed which is being weaned down. Currently on IV cefepime, daptomycin and Lasix drip. Complaining of leg pain. 11/22/2024 Patient remains on norepinephrine. Chest x-ray from yesterday showed interstitial edema no x-ray was done today. Patient audelia on IV Lasix drip. White count continues to improve and improved to 11 from 12 creatinine remained stable at 1.2. Patient is having good urine output REVIEW OF SYSTEMS: CONSTITUTIONAL: No fever, no malaise,. CARDIOVASCULAR: No chest pain, no palpitations, no syncope. PULMONARY: No shortness of breath, no cough, GASTROINTESTINAL: No diarrhea, no nausea, no vomiting, no abdominal pain. NEUROLOGICAL: No headaches, no weakness, 11/23 Patient currently in 368 She is awake but drowsy also she is confused cannot contribute much to the history this morning, probably also part of her delirium Patient herself denies any specific complaints Patient remains tachycardic with heart rate jumps to 103, blood pressure 102/60. Patient is afebrile and breathing at a rate of 18 to 20/min Labs reviewed, patient has stable leukocytosis 11.3 and hemoglobin 8.6 Creatinine 1.24, which is stable since admission compared to baseline 0.8-1.0 Patient remains on IV cefepime and daptomycin and Lasix drip 11/24 Patient still very lethargic and tired Somewhat tachypneic Dressing in the left leg is in place with some oozing Daughter at bedside Patient supposedly still getting IV Lasix 10 mg/h and broad-spectrum antibiotic with cefepime and daptomycin 11/25 Since dress shoe inspector I got a message that 3 daughters want others . To have a hospice consult When I went to see the patient 3 daughters were at bedside. Patient was awake alert looks slightly better still confused but she can answer questions she is v juan francisco tired. Still mildly tachypneic at rest. She is not getting IV Lasix anymore still on IV antibiotics. Family request to switch to oral antibiotics and discharge her soon. policy and planning manager on the case. 11/26 Patient awake and alert, generally weak, slightly better every day She follows command mentation also at baseline She still mildly tachypneic she is making good urine output on oral Lasix 4 mg twice daily Denies any other new complaint I discussed the case with cardiology team who cleared the patient for discharge Also she is on broad-spectrum antibiotics with plan to place PICC line/midline and possible discharge tomorrow on IV antibiotics. Per ID team recommendation Discussed with staff. Possible discharge 24 to 48 hours 11/27 Patient still lethargic and somewhat confused and drowsy, she opens her eyes to verbal stimuli's and answer some questions and follow some commands but go back to sleep She is mildly tachypneic but breathing looks better than 2 to 3 days ago Patient complains from constipation and stool softeners provided as well as laxative Patient require PICC line for IV antibiotics upon discharge, nephrology consult was obtained for PICC line clearance. Patient was found to have acute kidney injury with creatinine went up 1.2 up to 1.7. Potassium 5.8. Patient received 1 dose of Lokelma, TIM inhibitor was held as well as Toradol. Will continue monitoring. Patient continued on Lasix. Patient may benefit from ECF upon discharge. Prognosis guarded Daughter at bedside informed me they do not want hospice discussed with the daughters and the case checker for palliative consult as an outpatient and they agreeable. Also family would consider palliative in case she deteriorate to move to hospice as per my discussion with the daughter today. 11/28 patient still confused, she is getting worse over the last 2 days, she is not eating well, tachypneic and constipated I discussed the case with both daughter they are still considering hospice might be appropriate but they given her a chance to on Saturday PICC line is planned on Saturday for outpatient IV antibiotic. Daughter aware of this plan and they are agreeable Objective - Vital Signs Vital signs: Vital Signs Temp 97.4 F L 11/28/24 08:09 Pulse 61 11/28/24 08:09 Resp 15 11/28/24 08:09 BP 87/48 11/28/24 08:09 Pulse Ox 100 11/28/24 08:09 FiO2 Intake & Output 11/27/24 11/28/24 11/28/24 18:59 06:59 18:59 Output Total 1133 100 Balance -1133 -100 Output: Urine 1000 100 Post Void Residual 133 Other: Voiding Method External Catheter External Catheter External Catheter # Bowel Movements 1 - Exam -GENERAL: The patient is alert, confused and drowsy, not in any acute distress. Well developed, well nourished. Obese HEENT: Pupils are round and equally reacting to light. EOMI. No scleral icterus. No conjunctival pallor. Normocephalic, atraumatic. No pharyngeal erythema. No thyromegaly. CARDIOVASCULAR: S1 and S2 present. No murmurs, rubs, or gallops. PULMONARY: Chest is clear to auscultation, no wheezing , no crackles. ABDOMEN: Soft, nontender, nondistended, normoactive bowel sounds. No palpable organomegaly. MUSCULOSKELETAL: No joint swelling or deformity. EXTREMITIES: No cyanosis, clubbing, or pedal edema. NEUROLOGICAL: Gross neurological examination did not reveal any focal deficits. SKIN: No rashes. no petechiae. - Labs CBC & Chem 7: 11/28/24 03:02 11/28/24 03:02 Labs: Abnormal Lab Results - Last 24 Hours (Table) 11/27/24 11/27/24 11/28/24 Range/Units 16:57 20:51 03:02 WBC 11.57 H (4.50-10.00) X 10*3/uL RBC 3.45 L (4.10-5.20) X 10*6/uL Hgb 9.1 L (12.0-15.0) g/dL Hct 31.3 L (37.2-46.3) % MCH 26.4 L (27.0-32.0) pg MCHC 29.1 L (32.0-37.0) g/dL RDW 20.0 H (11.5-14.5) % Immature Gran # 0.09 H (0.00-0.04) X 10*3/uL Neutrophils # 9.31 H (1.80-7.70) X 10*3/uL NRBC/100 WBC Diff 0.03 H (0.00-0.01) X 10*3/uL Carbon Dioxide (21.6-31.8) mmol/L Anion Gap (4.00-12.00) mmol/L BUN (9.0-27.0) mg/dL Creatinine (0.6-1.5) mg/dL Est GFR (CKD-EPI) (>=60) BUN/Creatinine Ratio (12.00-20.00) Ratio Glucose (70-110) mg/dL POC Glucose (mg/dL) 276 H 226 H (70-110) mg/dL Calcium (8.7-10.3) mg/dL Unconjugated Bilirubin (0.20-1.00) mg/dL ALT (8-44) U/L Alkaline Phosphatase (41-126) U/L Total Protein (6.2-8.2) g/dL Albumin (3.8-4.9) g/dL Albumin/Globulin Ratio (1.60-3.17) Ratio 11/28/24 11/28/24 11/28/24 Range/Units 03:02 06:09 11:34 WBC (4.50-10.00) X 10*3/uL RBC (4.10-5.20) X 10*6/uL Hgb (12.0-15.0) g/dL Hct (37.2-46.3) % MCH (27.0-32.0) pg MCHC (32.0-37.0) g/dL RDW (11.5-14.5) % Immature Gran # (0.00-0.04) X 10*3/uL Neutrophils # (1.80-7.70) X 10*3/uL NRBC/100 WBC Diff (0.00-0.01) X 10*3/uL Carbon Dioxide 18.3 L (21.6-31.8) mmol/L Anion Gap 15.70 H (4.00-12.00) mmol/L BUN 92.3 H (9.0-27.0) mg/dL Creatinine 2.0 H (0.6-1.5) mg/dL Est GFR (CKD-EPI) 24 L (>=60) BUN/Creatinine Ratio 46.15 H (12.00-20.00) Ratio Glucose 151 H (70-110) mg/dL POC Glucose (mg/dL) 186 H 171 H (70-110) mg/dL Calcium 8.6 L (8.7-10.3) mg/dL Unconjugated Bilirubin 0.08 L (0.20-1.00) mg/dL ALT 128 H (8-44) U/L Alkaline Phosphatase 165 H (41-126) U/L Total Protein 5.7 L (6.2-8.2) g/dL Albumin 3.0 L (3.8-4.9) g/dL Albumin/Globulin Ratio 1.11 L (1.60-3.17) Ratio Assessment and Plan Assessment: Severe sepsis, status post septic shock, secondary to infection from the leg wounds, vertebral osteomyelitis, unknown whether patient actually had UTI on admission, Acute febrile illness, with bacteremia noted on 11/17/2024, 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, Pseudomonas aeruginosa, Proteus MirabellisHistory of MRSA bacteremia, SILVIANO done on 08/10/2024 did not show any vegetation Acute non-ST elevation NV Ischemic cardiomyopathy low ejection fraction, remains on Lasix drip Acute kidney injury History of implanted AICD/pacemaker History of coronary artery disease with previous CABG History of hypertension History of hyperlipidemia Diabetes mellitus, type II Acute kidney injury Hyperkalemia History of RSV tracheobronchitis July, Chronic normocytic, normochromic anemia Dementia Plan: Nephrology consult Monitor CBC Monitor CMP Continue telemetry monitoring Follow-up on blood culture Strict I's and O's, daily weights Continue IV Lasix drip Currently off Levophed/pressor Currently on daptomycin and cefepime ID following Cardiology following Critical care following Family still might consider hospice care
[2024-11-28 20:24] LABS: Glucose,Whole Blood 107 mg/dL (70-110)
[2024-11-29 07:02] LABS: Glucose,Whole Blood 148 mg/dL (70-110)
[2024-11-29 10:31] LABS: African American GFR (CKD) 36 (>60 ml/min/1.73 sqM); Anion Gap 10 mmol/L; Blood Urea Nitrogen 95 mg/dL (7-17); Calcium 8.8 mg/dL (8.4-10.2); Carbon Dioxide 22 mmol/L (22-30); Chloride 105 mmol/L (98-107); Glucose 177 mg/dL (74-99); Non-African American GFR(CKD) 32 (>60 ml/min/1.73 sqM); Potassium 4.9 mmol/L (3.5-5.1); Sodium 137 mmol/L (137-145)
[2024-11-29 12:18] LABS: Glucose,Whole Blood 276 mg/dL (70-110)
--- NOTE | 2024-11-29 12:36 | P.PN ---
Subjective Progress Note Date: 11/29/24 Patient seen in follow-up for MEAGHAN. Poor oral intake. A little more awake today. Family at bedside, all questions answered. Patient is comfortable, no acute distress Examination of the heart S1 and S2 Examination of the lungs bilateral breath sounds are heard Abdomen is soft nontender Examination of lower extremities shows bilateral legs to be wrapped Objective - Vital Signs Vital signs: Vital Signs Temp 97.4 F L 11/29/24 07:16 Pulse 91 11/29/24 07:16 Resp 15 11/29/24 07:16 BP 101/64 11/29/24 07:16 Pulse Ox 98 11/29/24 07:16 FiO2 Intake & Output 11/28/24 11/29/24 11/29/24 18:59 06:59 18:59 Intake Total 480 Output Total 325 Balance 155 Intake: Oral 480 Output: Urine 325 Other: Voiding Method External Catheter External Catheter External Catheter # Voids 300 # Bowel Movements 1 - Labs CBC & Chem 7: 11/28/24 03:02 11/29/24 09:52 Labs: Abnormal Lab Results - Last 24 Hours (Table) 11/28/24 11/28/24 11/28/24 Range/Units 03:02 11:34 17:04 Carbon Dioxide 18.3 L (21.6-31.8) mmol/L Anion Gap 15.70 H (4.00-12.00) mmol/L BUN 92.3 H (9.0-27.0) mg/dL Creatinine 2.0 H (0.6-1.5) mg/dL Est GFR (CKD-EPI) 24 L (>=60) BUN/Creatinine Ratio 46.15 H (12.00-20.00) Ratio Glucose 151 H (70-110) mg/dL POC Glucose (mg/dL) 171 H 206 H (70-110) mg/dL Calcium 8.6 L (8.7-10.3) mg/dL Unconjugated Bilirubin 0.08 L (0.20-1.00) mg/dL ALT 128 H (8-44) U/L Alkaline Phosphatase 165 H (41-126) U/L Total Protein 5.7 L (6.2-8.2) g/dL Albumin 3.0 L (3.8-4.9) g/dL Albumin/Globulin Ratio 1.11 L (1.60-3.17) Ratio 11/29/24 Range/Units 07:01 Carbon Dioxide (21.6-31.8) mmol/L Anion Gap (4.00-12.00) mmol/L BUN (9.0-27.0) mg/dL Creatinine (0.6-1.5) mg/dL Est GFR (CKD-EPI) (>=60) BUN/Creatinine Ratio (12.00-20.00) Ratio Glucose (70-110) mg/dL POC Glucose (mg/dL) 148 H (70-110) mg/dL Calcium (8.7-10.3) mg/dL Unconjugated Bilirubin (0.20-1.00) mg/dL ALT (8-44) U/L Alkaline Phosphatase (41-126) U/L Total Protein (6.2-8.2) g/dL Albumin (3.8-4.9) g/dL Albumin/Globulin Ratio (1.60-3.17) Ratio Assessment and Plan Assessment: 1. Acute kidney injury, nonoliguric, likely ATN from significant hypotension in the setting of use of NSAIDs and angiotensin receptor blockers. UA on admission suggestive of UTI. Creatinine improved to 1.5 today. PVR negative. 2. Septic shock from MRSA bacteremia related to left heel wound 3. History of CVA 4. Hyperkalemia associated with acute kidney injury and use of angiotensin receptor blockers and NSAIDs 5. Nongap metabolic acidosis associated with acute kidney injury Plan: Off Toradol, Cozaar, Bumex Potassium improved Continue antibiotics Daily BMP
--- NOTE | 2024-11-29 15:48 | P.PN ---
Subjective Progress Note Date: 11/29/24 Principal diagnosis: Reason for follow-up is left heel infected pressure ulcer and bacteremia Patient is a 84-year-old female with a past medical history significant for Coronary Artery Disease (CAD), Heart Failure, Dementia, Diabetes Mellitus, Hypertension, Myocardial Infarction (TX), Pneumonia, Vascular Disorder, history of left heel infected pressure ulcer and intermediate resident patient has been sent to the from the intermediate as the patient was having mental status changes fever and elevated white count. On today's evaluation that is 11/29/2024, Patient is afebrile patient is currently on 2 L goal oxygen and denies having any shortness of breath, the p atient denies any chest pain or cough, the patient denies any nausea vomiting did not have any abdominal pain and no diarrhea. Patient did have a creatinine 1.53 blood culture repeat has been negative Objective - Vital Signs Vital signs: Vital Signs Temp 97.5 F L 11/29/24 12:49 Pulse 82 11/29/24 12:49 Resp 15 11/29/24 12:49 BP 112/52 11/29/24 12:49 Pulse Ox 99 11/29/24 12:49 FiO2 Intake & Output 11/28/24 11/29/24 11/29/24 18:59 06:59 18:59 Intake Total 480 Output Total 325 Balance 155 Intake: Oral 480 Output: Urine 325 Other: Voiding Method External Catheter External Catheter External Catheter # Voids 300 # Bowel Movements 1 - Exam GENERAL DESCRIPTION: An elderly female lying in bed in no distress RESPIRATORY SYSTEM: Unlabored breathing , decreased breath sounds at bases HEART: S1 S2 regular rate and rhythm , ABDOMEN: Soft , no tenderness EXTREMITIES: Left wound is currently dressed - Labs CBC & Chem 7: 11/28/24 03:02 11/29/24 09:52 Labs: Abnormal Lab Results - Last 24 Hours (Table) 11/28/24 11/29/24 11/29/24 Range/Units 17:04 07:01 09:52 BUN 95 H (7-17) mg/dL Creatinine 1.53 H (0.52-1.04) mg/dL Glucose 177 H (74-99) mg/dL POC Glucose (mg/dL) 206 H 148 H (70-110) mg/dL 11/29/24 Range/Units 12:16 BUN (7-17) mg/dL Creatinine (0.52-1.04) mg/dL Glucose (74-99) mg/dL POC Glucose (mg/dL) 276 H (70-110) mg/dL Assessment and Plan (1) Non healing left heel wound Current Visit: Yes Status: Acute Code(s): S91.302A - UNSPECIFIED OPEN WOUND, LEFT FOOT, INITIAL ENCOUNTER SNOMED Code(s): 072001468 (2) Septic shock Current Visit: Yes Status: Acute Code(s): A41.9 - SEPSIS, UNSPECIFIED ORGANISM; R65.21 - SEVERE SEPSIS WITH SEPTIC SHOCK SNOMED Code(s): 26925676 (3) Urinary tract infection Current Visit: Yes Status: Acute Code(s): N39.0 - URINARY TRACT INFECTION, SITE NOT SPECIFIED SNOMED Code(s): 38577868 (4) Bacteremia Current Visit: Yes Status: Acute Code(s): R78.81 - BACTEREMIA SNOMED Code(s): 2243196 (5) Vertebral osteomyelitis Current Visit: Yes Status: Acute Code(s): M46.20 - OSTEOMYELITIS OF VERTEBRA, SITE UNSPECIFIED SNOMED Code(s): 253527890 Plan: 1patient presented hospital with sepsis in this patient who did have fever tachycardia tachypnea hypotension elevated white count meeting criteria for SIRS source is likely urinary as the patient has significantly positive UA plus minus infected left heel pressure ulcer with a previous history of MRSA infection to the left heel 2-sulfa allergy 3-blood cultures currently growing MRSA left heel culture currently growing MRS A's Proteus and Pseudomonas 4patient also have a destructive changes at C3-C4 with a question of possible discitis/osteomyelitis patient is concerned to be high surgical risk for surgery orthopedics is on standby 5-patient is afebrile patient repeat blood culture so far negative 6patient currently waiting for PICC line placement, continue with the daptomycin and cefepime restarted as it fell off, daughter at the bedside question answered Dictation was produced using [employer] dictation software. please excuse any grammatical, word or spelling errors. Time with Patient: Less than 30
[2024-11-29] MEDS ORDERED: CEFEPIME 2 GM in SODIUM CHLORIDE 0.9% 100 ML IVPB SCH (16:00)
[2024-11-29 16:46] LABS: Glucose,Whole Blood 299 mg/dL (70-110)
[2024-11-29] MEDS: CEFEPIME 1 GM in SODIUM CHLORIDE 0.9% 50 ML IVPB SCH (19:07)
[2024-11-29 20:18] LABS: Glucose,Whole Blood 174 mg/dL (70-110)
[2024-11-30 06:06] LABS: Glucose,Whole Blood 334 mg/dL (70-110)
--- NOTE | 2024-11-30 09:59 | P.PN ---
Subjective Patient is seen in follow-up for acute kidney injury. Daughter present at bedside. Patient more awake today. Has been voiding. Has external catheter. Vital signs are stable. General: No acute distress. HEENT: Head exam is unremarkable. On nasal cannula. LUNGS: No audible rhonchi or wheezes. HEART: Rate and Rhythm are regular. ABDOMEN: Nontender. EXTREMITITES: No edema. Objective - Vital Signs Vital signs: Vital Signs Temp 97.8 F 11/30/24 07:30 Pulse 94 11/30/24 07:30 Resp 18 11/30/24 07:30 BP 114/65 11/30/24 07:30 Pulse Ox 100 11/30/24 07:30 FiO2 Intake & Output 11/29/24 11/30/24 11/30/24 18:59 06:59 18:59 Intake Total 0 Output Total 500 Balance -500 0 Intake: Oral 0 Output: Urine 500 Other: Voiding Method External Catheter External Catheter # Voids 2 - Labs CBC & Chem 7: 11/28/24 03:02 11/29/24 09:52 Labs: Abnormal Lab Results - Last 24 Hours (Table) 11/29/24 11/29/24 11/29/24 Range/Units 09:52 12:16 16:44 BUN 95 H (7-17) mg/dL Creatinine 1.53 H (0.52-1.04) mg/dL Glucose 177 H (74-99) mg/dL POC Glucose (mg/dL) 276 H 299 H (70-110) mg/dL 11/29/24 11/30/24 Range/Units 20:17 06:04 BUN (7-17) mg/dL Creatinine (0.52-1.04) mg/dL Glucose (74-99) mg/dL POC Glucose (mg/dL) 174 H 334 H (70-110) mg/dL Assessment and Plan Plan: Assessment: 1. Acute kidney injury secondary to ATN secondary to hypotension and further worsened with the use of NSAIDs and ARB. Creatinine peaked at 2.0 this admission and was down to 1.[address] scan from July 2024 showed no evidence of hydronephrosis. 2. Septic shock secondary to MRSA bacteremia due to left heel wound. On antibiotics. 3. History of CVA. 4. Hyperkalemia secondary to acute kidney injury, NSAIDs and ARB. Improved. 5. Metabolic acidosis secondary to acute kidney injury. Improved. 6. Diabetes mellitus. 7. Chronic systolic CHF ejection fraction of 10 to 15%. Plan: Encouraged oral intake. Avoid nephrotoxins. Continue to monitor renal function and urine output.
[2024-11-30 11:48] LABS: Glucose,Whole Blood 112 mg/dL (70-110)
--- NOTE | 2024-11-30 12:16 | P.PN ---
Subjective Patient is 84-year-old female sent in by EMS from her fci, [facility], after being noted to be confused, lethargic, with low blood pressures. She was tachycardic with a temperature of 100.8 F. Concerns for sepsis. On arrival, she was hypotensive, fluid resuscitated with a total of 3 L crystalloid fluid. Norepinephrine was started as the blood pressure did not respond to fluid alone. Started on a combination of cefepime and vancomycin for broad-spectrum antibiotic coverage. Serial troponins were elevated, and patient was also diag nosed with acute non-ST elevation TX and started on IV heparin per protocol. 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 Of note, had a recent hospitalization back in July, for sepsis and CHF exacerbation. MRSA was isolated in her blood. SILVIANO done on 08/10/2024 did not show any vegetation. There was a severely reduced left ventricular ejection fraction of 30 to 35%, moderate mitral and tricuspid regurgitation with severe pulmonary hypertension. Mild to moderate aortic regurgitation. Treated with IV antibiotics. She also has history of ischemic cardiomyopathy, biventricular AICD, previous CABG, hypertension, hyperlipidemia, diabetes mellitus type 2, dementia, among other debilitating comorbidities. Workup in the emergency department including chest x-ray showing stable pulmonary vascular congestion with scattered infiltrates and small effusions suggestive of congestive heart failure. X-ray left foot with soft t issue wound over the heel without evidence of osseous erosion. Urinalysis was positive for pyuria and bacteria. CBC with a WBC count of 13.4, hemoglobin 9.3, platelets 439. CMP: Sodium 132, potassium 5.7, chloride 98, serum bicarb 21, BUN 76, creatinine 1.35, glucose 219. LFTs mildly elevated. Troponins elevated at 1.11, 2.2, 4.3, and 5.5 respectively. EKG showing a ventricularly paced rhythm. IV heparin continues per protocol. VBG with a pCO2 of 39 and pH of 7.38. Viral 4 Plex negative for influenza A/B, RSV, COVID of note, on her previous hospitalization in July was positive for RSV. Currently, patient is being observed in the intensive care unit. She is currently awake and alert. She is oriented to self and place. Does not recall events prior to coming to the hospital. I am told this could be her baseline. She does have dementia and takes [facility]icept [facility] the [facility]. Denies any chest pain. IV heparin continues per protocol. Blood pressure is being supported with norepinephrine which is infusing at 0.04 mcg/kg/min. Previously febrile with a Tmax of 101.9 F, and this is down and currently normothermic. Urinary catheter was placed which is draining clear urine. Normal saline to be started at 50 mL/h. pancultures are pending. Patient previously complaining of neck pain, however, denies this to me. She has a CT of the neck and chest ordered. No respiratory distress or stridor 11/21. Patient seen and examined.Labs reviewed showing WBC 9.03, hemoglobin 9, platelet count 428, sodium 137, potassium 4.4, BUN 78, creatinine 1.25. Currently on IV Levophed which is being weaned down. Currently on IV cefepime, daptomycin and Lasix drip. Complaining of leg pain. 11/22/2024 Patient remains on norepinephrine. Chest x-ray from yesterday showed interstitial edema no x-ray was done today. Patient audelia on IV Lasix drip. White count continues to improve and improved to 11 from 12 creatinine remained stable at 1.2. Patient is having good urine output REVIEW OF SYSTEMS: CONSTITUTIONAL: No fever, no malaise,. CARDIOVASCULAR: No chest pain, no palpitations, no syncope. PULMONARY: No shortness of breath, no cough, GASTROINTESTINAL: No diarrhea, no nausea, no vomiting, no abdominal pain. NEUROLOGICAL: No headaches, no weakness, 11/23 Patient currently in 368 She is awake but drowsy also she is confused cannot contribute much to the history this morning, probably also part of her delirium Patient herself denies any specific complaints Patient remains tachycardic with heart rate jumps to 103, blood pressure 102/60. Patient is afebrile and breathing at a rate of 18 to 20/min Labs reviewed, patient has stable leukocytosis 11.3 and hemoglobin 8.6 Creatinine 1.24, which is stable since admission compared to baseline 0.8-1.0 Patient remains on IV cefepime and daptomycin and Lasix drip 11/24 Patient still very lethargic and tired Somewhat tachypneic Dressing in the left leg is in place with some oozing Daughter at bedside Patient supposedly still getting IV Lasix 10 mg/h and broad-spectrum antibiotic with cefepime and daptomycin 11/25 Since early childhood coordinator I got a message that 3 daughters want others . To have a hospice consult When I went to see the patient 3 daughters were at bedside. Patient was awake alert looks slightly better still confused but she can answer questions she is v juan francisco tired. Still mildly tachypneic at rest. She is not getting IV Lasix anymore still on IV antibiotics. Family request to switch to oral antibiotics and discharge her soon. manager zone on the case. 11/26 Patient awake and alert, generally weak, slightly better every day She follows command mentation also at baseline She still mildly tachypneic she is making good urine output on oral Lasix 4 mg twice daily Denies any other new complaint I discussed the case with cardiology team who cleared the patient for discharge Also she is on broad-spectrum antibiotics with plan to place PICC line/midline and possible discharge tomorrow on IV antibiotics. Per ID team recommendation Discussed with staff. Possible discharge 24 to 48 hours 11/27 Patient still lethargic and somewhat confused and drowsy, she opens her eyes to verbal stimuli's and answer some questions and follow some commands but go back to sleep She is mildly tachypneic but breathing looks better than 2 to 3 days ago Patient complains from constipation and stool softeners provided as well as laxative Patient require PICC line for IV antibiotics upon discharge, nephrology consult was obtained for PICC line clearance. Patient was found to have acute kidney injury with creatinine went up 1.2 up to 1.7. Potassium 5.8. Patient received 1 dose of Lokelma, TIM inhibitor was held as well as Toradol. Will continue monitoring. Patient continued on Lasix. Patient may benefit from ECF upon discharge. Prognosis guarded Daughter at bedside informed me they do not want hospice discussed with the daughters and the case resource manager for palliative consult as an outpatient and they agreeable. Also family would consider palliative in case she deteriorate to move to hospice as per my discussion with the daughter today. 11/28 patient still confused, she is getting worse over the last 2 days, she is not eating well, tachypneic and constipated I discussed the case with both daughter they are still considering hospice might be appropriate but they given her a chance to on Saturday PICC line is planned on Saturday for outpatient IV antibiotic. Daughter aware of this plan and they are agreeable 11/29 Patient is sleepy Still confused Hide she can recognize her daughter. She is eating little bit but she wants to change tomorrow soft diet to see if that she can tolerate. It is hard for her to tolerate Daughter asking about hospice care again Creatinine improving slowly. Remains on daptomycin and cefepime. Plan for PICC line on Saturday once cleared by nephrology team Objective - Vital Signs Vital signs: Vital Signs Temp 97.4 F L 11/29/24 07:16 Pulse 91 11/29/24 07:16 Resp 15 11/29/24 07:16 BP 101/64 11/29/24 07:16 Pulse Ox 98 11/29/24 07:16 FiO2 Intake & Output 11/28/24 11/29/24 11/29/24 18:59 06:59 18:59 Intake Total 480 Output Total 325 Balance 155 Intake: Oral 480 Output: Urine 325 Other: Voiding Method External Catheter External Catheter External Catheter # Voids 300 # Bowel Movements 1 - Exam -GENERAL: The patient is alert, confused and drowsy, not in any acute distress. Well developed, well nourished. Obese HEENT: Pupils are round and equally reacting to light. EOMI. No scleral icterus. No conjunctival pallor. Normocephalic, atraumatic. No pharyngeal erythema. No thyromegaly. CARDIOVASCULAR: S1 and S2 present. No murmurs, rubs, or gallops. PULMONARY: Chest is clear to auscultation, no wheezing , no crackles. ABDOMEN: Soft, nontender, nondistended, normoactive bowel sounds. No palpable organomegaly. MUSCULOSKELETAL: No joint swelling or deformity. EXTREMITIES: No cyanosis, clubbing, or pedal edema. NEUROLOGICAL: Gross neurological examination did not reveal any focal deficits. SKIN: No rashes. no petechiae. - Labs CBC & Chem 7: 11/28/24 03:02 11/29/24 09:52 Labs: Abnormal Lab Results - Last 24 Hours (Table) 11/28/24 11/29/24 11/29/24 Range/Units 17:04 07:01 09:52 BUN 95 H (7-17) mg/dL Creatinine 1.53 H (0.52-1.04) mg/dL Glucose 177 H (74-99) mg/dL POC Glucose (mg/dL) 206 H 148 H (70-110) mg/dL 11/29/24 Range/Units 12:16 BUN (7-17) mg/dL Creatinine (0.52-1.04) mg/dL Glucose (74-99) mg/dL POC Glucose (mg/dL) 276 H (70-110) mg/dL Assessment and Plan Assessment: Severe sepsis, status post septic shock, secondary to infection from the leg wounds, vertebral osteomyelitis, unknown whether patient actually had UTI on admission, Acute febrile illness, with bacteremia noted on 11/17/2024, 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, Pseudomonas aeruginosa, Proteus MirabellisHistory of MRSA bacteremia, SILVIANO done on 08/10/2024 did not show any vegetation Acute non-ST elevation TX Ischemic cardiomyopathy low ejection fraction, remains on Lasix drip Acute kidney injury History of implanted AICD/pacemaker History of coronary artery disease with previous CABG History of hypertension History of hyperlipidemia Diabetes mellitus, type II Acute kidney injury Hyperkalemia History of RSV tracheobronchitis July, Chronic normocytic, normochromic anemia Dementia Plan: Nephrology consult Monitor CBC Monitor CMP Continue telemetry monitoring Follow-up on blood culture Strict I's and O's, daily weights Continue IV Lasix drip Currently off Levophed/pressor Currently on daptomycin and cefepime ID following Cardiology following Critical care following Family still might consider hospice care
[2024-11-30 16:44] VITALS: BMI 27.3
[2024-11-30 16:57] LABS: Glucose,Whole Blood 128 mg/dL (70-110)
--- NOTE | 2024-11-30 19:45 | P.PN ---
Subjective Progress Note Date: 11/30/24 On 11/30/2024, the patient is resting comfortably in bed. This is a 85-year-old female patient is known to have coronary artery disease, diabetes mellitus type 2, dementia, peripheral vascular disease and a chronically infected left heel pressure ulcer. She is a [facility] resident. Wound cultures from 11/17/2024 was positive for Proteus Mirabella's and MRSA and Pseudomonas aeruginosa and Klebsiella. Her initial blood culture was also positive for MRSA. ID is on the case and the patient remains on a combination IV cefepime and daptomycin. Clinically stable. Hemodynamically stable. She is on oxygen at 2 L/min nasal cannula. No sign of any significant respiratory distress. No chest pain. No cough or sputum production. No nausea or emesis. No abdominal pain. The repeat blood cultures have been negative. In terms of her blood work, the patient's creatinine is down to 1.5 with a BUN of 95. Sodium is at 137 and potassium level is at 4.9 and those labs are from yesterday. No new labs are available from today. She is on Lantus insulin 5 units twice daily and NovoLog sliding scale coverage. She is also on aspirin. No other significant events overnight. Objective - Vital Signs Vital signs: Vital Signs Temp 97.8 F 11/30/24 07:30 Pulse 94 11/30/24 07:30 Resp 18 11/30/24 07:30 BP 114/65 11/30/24 07:30 Pulse Ox 100 11/30/24 07:30 FiO2 Intake & Output 11/29/24 11/30/24 11/30/24 18:59 06:59 18:59 Intake Total 0 Output Total 500 Balance -500 0 Intake: Oral 0 Output: Urine 500 Other: Voiding Method External Catheter External Catheter # Voids 2 - Exam GENERAL EXAM: Revealed 84-year-old female in no distress on 2 L nasal cannula HEAD: Normocephalic and atraumatic EYES: Normal reaction of pupils, equal size. NOSE: Clear with pink turbinates. THROAT: No erythema or exudates. NECK: No masses, no JVD. CHEST: No chest wall deformity. Left chest implanted AICD/pacemaker generator. Remote appearing sternotomy incision. LUNGS: Crackles in the bases no rhonchi no wheezes CVS: S1 and S2 normal with no audible murmur, regular rhythm. No extra heart sounds ABDOMEN: No hepatosplenomegaly, active bowel sounds, no guarding or rigidity. SKIN: Multiple skin lesions as noted below CENTRAL NERVOUS SYSTEM: Arousable, seems to be a bit more confused today. Otherwise no gross focal deficit EXTREMITIES: There is mild nonpitting lower extremity edema bilaterally. Left heel wound dressed with new dressing. No clubbing or cyanosis. Peripheral pulses are intact. - Labs CBC & Chem 7: 11/28/24 03:02 11/29/24 09:52 Labs: Abnormal Lab Results - Last 24 Hours (Table) 11/29/24 11/29/24 11/30/24 Range/Units 16:44 20:17 06:04 POC Glucose (mg/dL) 299 H 174 H 334 H (70-110) mg/dL 11/30/24 Range/Units 11:47 POC Glucose (mg/dL) 112 H (70-110) mg/dL Assessment and Plan Plan: Sepsis, with septic shock, with MRSA septicemia, hemodynamically stable on no pressors and the patient remains on a combination of cefepime and daptomycin Chronic left leg/heel wound, with multiple bacteria, including Pseudomonas, Proteus, MRSA and the patient had bacteremia with MRSA at the time of admission Suspected vertebral osteomyelitis Chronic CHF with cardiomyopathy, with an ejection fraction of 30 to 35%, and evidence of valvular heart disease.The patient has ischemic cardiomyopathy with an ejection fraction of 30 to 85% and mild to moderate mitral regurgitation and moderate aortic regurgitation with mild to moderate tricuspid regurgitation and moderate pulmonary hypertension. The patient also has severe hypokinesis involving the anteroseptal and the apical septal portion. This is based on an echocardiogram done on 08/04/2024. Group 2 pulmonary hypertension. Coronary artery disease status post acute non-ST segment elevation myocardial infarction. Status post AICD/pacemaker implantation. History of CAD with previous CABG. Hypertension. Hyperlipidemia. Type 2 diabetes mellitus. Acute kidney injury, improving Hyperkalemia. History of RSV tracheobronchitis, July 2024. Chronic normocytic/normochromic anemia. History of dementia. Plan: Clinically stable on 2 L of oxygen by nasal cannula Patient continues to be on a combination of cefepime and vancomycin Patient had acute kidney injury secondary to ATN/hypotension and a creatinine peaked at 2.0 during this current admission and is currently down to 1.5. No evidence of any hydronephrosis. ID is on the case, awaiting a PICC line insertion. Patient has a destructive C3-C4 lesion with questionable discitis/osteomyelitis and she is considered to be high risk for any surgical exploration. The patient will need long-term antibiotics and the patient will continue daptomycin and cefepime for now per IDs recommendation.
[2024-11-30 20:37] LABS: Glucose,Whole Blood 164 mg/dL (70-110)
[2024-12-01 06:06] LABS: Glucose,Whole Blood 140 mg/dL (70-110)
[2024-12-01 08:45] LABS: Anion Gap 13.30 mmol/L (4.00-12.00); BUN/Creat Ratio 59.08 Ratio (12.00-20.00); Blood Urea Nitrogen 70.9 mg/dL (9.0-27.0); Calcium 9.0 mg/dL (8.7-10.3); Carbon Dioxide 22.7 mmol/L (21.6-31.8); Chloride 105 mmol/L (96-109); Glucose 141 mg/dL (70-110); Magnesium 2.1 mg/dL (1.5-2.4); Potassium 4.9 mmol/L (3.5-5.5); Sodium 141 mmol/L (135-145)
--- NOTE | 2024-12-01 10:33 | P.PN ---
Subjective Progress Note Date: 11/30/24 Patient is 84-year-old female sent in by EMS from her [facility]ci, [facility], after being noted to be confused, lethargic, with low blood pressures. She was tachycardic with a temperature of 100.8 F. Concerns for sepsis. On arrival, she was hypotensive, fluid resuscitated with a total of 3 L crystalloid fluid. Norepinephrine was started as the blood pressure did not respond to fluid alone. Started on a combination of cefepime and vancomycin for broad-spectrum antibiotic coverage. Serial troponins were elevated, and patient was also diagnosed with acute non-ST elevation DE and started on IV heparin per protocol. 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 Of note, had a recent hospitalization back in July, for sepsis and CHF exacerbation. MRSA was isolated in her blood. SILVIANO done on 08/10/2024 did not show any vegetation. There was a severely reduced left ventricular ejection fraction of 30 to 35%, moderate mitral and tricuspid regurgitation with severe pulmonary hypertension. Mild to moderate aortic regurgitation. Treated with IV antibiotics. She also has history of ischemic cardiomyopathy, biventricular AICD, previous CABG, hypertension, hyperlipidemia, diabetes mellitus type 2, dementia, among other debilitating comorbidities. Workup in the emergency department including chest x-ray showing stable pulmonary vascular congestion with scattered infiltrates and small effusions suggestive of congestive heart failure. X-ray left foot with soft tissue wound over the heel without evidence of osseous erosion. Urinalysis was positive for pyuria and bacteria. CBC with a WBC count of 13.4, hemoglobin 9.3, platelets 439. CMP: Sodium 132, potassium 5.7, chloride 98, serum bicarb 21, BUN 76, creatinine 1.35, glucose 219. LFTs mildly elevated. Troponins elevated at 1.11, 2.2, 4.3, and 5.5 respectively. EKG showing a ventricularly paced rhythm. IV heparin continues per protocol. VBG with a pCO2 of 39 and pH of 7.38. Viral 4 Plex negative for influenza A/B, RSV, COVID of note, on her previous hospitalization in July was positive for RSV. Currently, patient is being observed in the intensive care unit. She is currently awake and alert. She is oriented to self and place. Does not recall events prior to coming to the hospital. I am told this could be her baseline. She does have dementia and takes Aricept at the [facility]. Denies any chest pain. IV heparin continues per protocol. Blood pressure is being supported with norepinephrine which is infusing at 0.04 mcg/kg/min. Previously febrile with a Tmax of 101.9 F, and this is down and currently normothermic. Urinary catheter was placed which is draining clear urine. Normal saline to be started at 50 mL/h. pancultures are pending. Patient previously complaining of neck pain, however, denies this to me. She has a CT of the neck and chest ordered. No respiratory distress or stridor 11/21. Patient seen and examined.Labs reviewed showing WBC 9.03, hemoglobin 9, platelet count 428, sodium 137, potassium 4.4, BUN 78, creatinine 1.25. Currently on IV Levophed which is being weaned down. Currently on IV cefepime, daptomycin and Lasix drip. Complaining of leg pain. 11/22/2024 Patient remains on norepinephrine. Chest x-ray from yesterday showed interstitial edema no x-ray was done today. Patient audelia on IV Lasix drip. White count continues to improve and improved to 11 from 12 creatinine remained stable at 1.2. Patient is having good urine output REVIEW OF SYSTEMS: CONSTITUTIONAL: No fever, no malaise,. CARDIOVASCULAR: No chest pain, no palpitations, no syncope. PULMONARY: No shortness of breath, no cough, GASTROINTESTINAL: No diarrhea, no nausea, no vomiting, no abdominal pain. NEUROLOGICAL: No headaches, no weakness, 11/23 Patient currently in 368 She is awake but drowsy also she is confused cannot contribute much to the history this morning, probably also part of her delirium Patient herself denies any specific complaints Patient remains tachycardic with heart rate jumps to 103, blood pressure 102/60. Patient is afebrile and breathing at a rate of 18 to 20/min Labs reviewed, patient has stable leukocytosis 11.3 and hemoglobin 8.6 Creatinine 1.24, which is stable since admission compared to baseline 0.8-1.0 Patient remains on IV cefepime and daptomycin and Lasix drip 11/24 Patient still very lethargic and tired Somewhat tachypneic Dressing in the left leg is in place with some oozing Daughter at bedside Patient supposedly still getting IV Lasix 10 mg/h and broad-spectrum antibiotic with cefepime and daptomycin 11/25 Since early childhood educator aide I got a message that 3 daughters want others . To have a hospice consult When I went to see the patient 3 daughters were at bedside. Patient was awake alert looks slightly better still confused but she can answer questions she is very tired. Still mildly tachypneic at rest. She is not getting IV Lasix anymore still on IV antibiotics. Family request to switch to oral antibiotics and discharge her soon. sales and business development manager on the case. 11/26 Patient awake and alert, generally weak, slightly better every day She follows command mentation also at baseline She still mildly tachypneic she is making good urine output on oral Lasix 4 mg twice daily Denies any other new complaint I discussed the case with cardiology team who cleared the patient for discharge Also she is on broad-spectrum antibiotics with plan to place PICC line/midline and possible discharge tomorrow on IV antibiotics. Per ID team recommendation Discussed with staff. Possible discharge 24 to 48 hours 11/27 Patient still lethargic and somewhat confused and drowsy, she opens her eyes to verbal stimuli's and answer some questions and follow some commands but go back to sleep She is mildly tachypneic but breathing looks better than 2 to 3 days ago Patient complains from constipation and stool softeners provided as well as laxative Patient require PICC line for IV antibiotics upon discharge, nephrology consult was obtained for PICC line clearance. Patient was found to have acute kidney injury with creatinine went up 1.2 up to 1.7. Potassium 5.8. Patient received 1 dose of Lokelma, TIM inhibitor was held as well as Toradol. Will continue monitoring. Patient continued on Lasix. Patient may benefit from ECF upon discharge. Prognosis guarded Daughter at bedside informed me they do not want hospice discussed with the daughters and the lead case manager for palliative consult as an outpatient and they agreeable. Also family would consider palliative in case she deteriorate to move to hospice as per my discussion with the daughter today. 11/28 patient still confused, she is getting worse over the last 2 days, she is not eating well, tachypneic and constipated I discussed the case with both daughter they are still considering hospice might be appropriate but they given her a chance to on Saturday PICC line is planned on Saturday for outpatient IV antibiotic. Daughter aware of this plan and they are agreeable 11/30/2024 Patient is seen in follow-up today with no significant change other than patient is not eating very much with no real appetite. Family at the bedside would like the patient to return to [facility] for continued PT/OT therapy as well as IV antibiotics as patient has been staying there. Patient is awaiting to receive a PICC line and per nursing staff they are shortstaffed and unsure if they can get to it today. Will await PICC line as plan is to return to [facility] on continued antibiotic therapy per infectious disease recommendations. Review of systems: Constitutional: reports of fatigue, no fever, or chills Cardiovascular: No reports of chest pain or palpitations Respiratory: No reports of shortness of breath or cough GI: No reports of nausea, vomiting, or diarrhea, reports not eating very much : No reports of dysuria or retention Neurovascular: reports of significant generalized weakness All medications have been reviewed Physical exam: GENERAL: The patient is alert, confused and drowsy, not in any acute distress. Well developed, well nourished. Obese HEENT: Pupils are round and equally reacting to light. EOMI. No scleral icterus. No conjunctival pallor. Normocephalic, atraumatic. No pharyngeal erythema. No thyromegaly. CARDIOVASCULAR: S1 and S2 present. No murmurs, rubs, or gallops. PULMONARY: Chest is clear to auscultation, no wheezing , no crackles. ABDOMEN: Soft, nontender, nondistended, normoactive bowel sounds. No palpable organomegaly. MUSCULOSKELETAL: No joint swelling or deformity. EXTREMITIES: No cyanosis, clubbing, or pedal edema. NEUROLOGICAL: Gross neurological examination did not reveal any focal deficits. Diffusely weak SKIN: No rashes. no petechiae. Assessment: Severe sepsis, status post septic shock, secondary to infection from the left leg wounds, vertebral osteomyelitis, unknown whether patient actually had UTI on admission and pain repeat cultures are negative Acute febrile illness, with bacteremia noted on 11/17/2024, 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, Pseudomonas aeruginosa, Proteus MirabellisHistory of MRSA bacteremia, SILVIANO done on 08/10/2024 did not show any vegetation Acute non-ST elevation DE Ischemic cardiomyopathy low ejection fraction, remains on Lasix Acute kidney injury History of implanted AICD/pacemaker History of coronary artery disease with previous CABG History of hypertension History of hyperlipidemia Diabetes mellitus, type II Acute kidney injury Hyperkalemia History of RSV tracheobronchitis July, Chronic normocytic, normochromic anemia Dementia Plan: Nephrology, infectious disease following and patient is out of the ICU. Patient continues to be significantly weak maintained on antibiotics with infectious disease following and plan is for PICC line with continued IV antibiotic therapy Orthopedics has evaluated the patient with no plans of surgical intervention at this time recommending conservative management and pain control Patient will be returning to [facility] and currently awaiting a PICC line. Per Team there is not enough staff available and may not be done today Initially family discussed possible hospice care although family later decided they would like to continue on antibiotic therapy and return to [facility] Overall prognosis is definitely poor and guarded at this time and patient is high risk for readmissions given significant comorbidities Will discuss with consultations regarding possible discharge planning to [facility] after PICC line is received The impression and plan of care has been dictated by Damaris Sinha, Nurse Practitioner as directed. Dr. Heath MD I have performed a history and examination and MDM of this patient, discussed the same with the dictator, and agree with the dictator's assessment and plan as written ,documented as a scribe. Based on total visit time, I have performed more than 50% of the visit. Objective - Vital Signs Vital signs: Vital Signs Temp 97.8 F 11/30/24 07:30 Pulse 94 11/30/24 07:30 Resp 18 11/30/24 07:30 BP 114/65 11/30/24 07:30 Pulse Ox 100 11/30/24 07:30 FiO2 Intake & Output 11/29/24 11/30/24 11/30/24 18:59 06:59 18:59 Intake Total 0 Output Total 500 Balance -500 0 Intake: Oral 0 Output: Urine 500 Other: Voiding Method External Catheter External Catheter # Voids 2 - Labs CBC & Chem 7: 11/28/24 03:02 12/01/24 03:25 Labs: Abnormal Lab Results - Last 24 Hours (Table) 11/29/24 11/29/24 11/29/24 Range/Units 09:52 12:16 16:44 BUN 95 H (7-17) mg/dL Creatinine 1.53 H (0.52-1.04) mg/dL Glucose 177 H (74-99) mg/dL POC Glucose (mg/dL) 276 H 299 H (70-110) mg/dL 11/29/24 11/30/24 Range/Units 20:17 06:04 BUN (7-17) mg/dL Creatinine (0.52-1.04) mg/dL Glucose (74-99) mg/dL POC Glucose (mg/dL) 174 H 334 H (70-110) mg/dL
--- NOTE | 2024-12-01 11:04 | P.PN ---
Subjective Patient is seen in follow-up for acute kidney injury. Daughter present at bedside. Patient awake and does respond to verbal questions. Has been voiding. Has external catheter. Renal function better. Vital signs are stable. General: No acute distress. HEENT: Head exam is unremarkable. On nasal cannula. LUNGS: No audible rhonchi or wheezes. HEART: Rate and Rhythm are regular. ABDOMEN: Nontender. EXTREMITITES: No edema. Objective - Vital Signs Vital signs: Vital Signs Temp 97.5 F L 12/01/24 07:21 Pulse 98 12/01/24 09:51 Resp 20 12/01/24 11:00 BP 144/62 12/01/24 09:51 Pulse Ox 97 12/01/24 09:51 FiO2 Intake & Output 11/30/24 12/01/24 12/01/24 18:59 06:59 18:59 Output Total 250 300 Balance -250 -300 Weight 68 kg 66 kg Output: Urine 250 300 Other: Voiding Method External Catheter External Catheter External Catheter # Voids 1 1 # Bowel Movements 1 - Labs CBC & Chem 7: 11/28/24 03:02 12/01/24 03:25 Labs: Abnormal Lab Results - Last 24 Hours (Table) 11/30/24 11/30/24 11/30/24 Range/Units 11:47 16:55 20:36 Anion Gap (4.00-12.00) mmol/L BUN (9.0-27.0) mg/dL Est GFR (CKD-EPI) (>=60) BUN/Creatinine Ratio (12.00-20.00) Ratio Glucose (70-110) mg/dL POC Glucose (mg/dL) 112 H 128 H 164 H (70-110) mg/dL 12/01/24 12/01/24 Range/Units 03:25 06:05 Anion Gap 13.30 H (4.00-12.00) mmol/L BUN 70.9 H (9.0-27.0) mg/dL Est GFR (CKD-EPI) 45 L (>=60) BUN/Creatinine Ratio 59.08 H (12.00-20.00) Ratio Glucose 141 H (70-110) mg/dL POC Glucose (mg/dL) 140 H (70-110) mg/dL Assessment and Plan Plan: Assessment: 1. Acute kidney injury secondary to ATN secondary to hypotension and further worsened with the use of NSAIDs and ARB. Creatinine peaked at 2.0 this admission and is improved to 1.[address] scan from July 2024 showed no evidence of hydronephrosis. 2. Septic shock secondary to MRSA bacteremia due to left heel wound. On antibiotics. 3. History of CVA. 4. Hyperkalemia secondary to acute kidney injury, NSAIDs and ARB. Improved. 5. Metabolic acidosis secondary to acute kidney injury. Improved. 6. Diabetes mellitus. 7. Chronic systolic CHF ejection fraction of 10 to 15%. Plan: Encouraged oral intake. Avoid nephrotoxins. Continue to monitor renal function and urine output. Follow-up chest x-ray.
--- NOTE | 2024-12-01 11:12 | XR ---
EXAMINATION TYPE: XR chest 1V portable DATE OF EXAM: 12/01/2024 11:07 AM COMPARISON: Chest radiographs from 11/21/2024. CLINICAL INDICATION: Female, 84 years old with history of shortness of breath; TECHNIQUE: XR chest 1V portable Frontal view of the chest. FINDINGS: Lungs/Pleura: No evidence of focal consolidation or pneumothorax. Blunting of the costophrenic angles is present. Pulmonary vascularity: Pulmonary vascular congestion. Heart/mediastinum: Cardiomediastinal silhouette is enlarged. Three lead cardiac conduction device ove rlying the left hemithorax with lead tips projecting over the right ventricle, right atrium and coron dawn sinus. Musculoskeletal: No acute osseous pathology. IMPRESSION: Cardiomegaly, pulmonary vascular congestion and bilateral pleural effusions. Correlate with BNP for c ongestive heart failure. [facility], , 12/01/2024 11:09 AM
[2024-12-01 11:57] LABS: Glucose,Whole Blood 153 mg/dL (70-110)
[2024-12-01] MEDS: FUROSEMIDE 10 MG/ML 4 ML VIAL IV STA (14:29)
--- NOTE | 2024-12-01 14:34 | P.PN ---
Subjective Progress Note Date: 12/01/24 On 11/30/2024, the patient is resting comfortably in bed. This is a 85-year-old female patient is known to have coronary artery disease, diabetes mellitus type 2, dementia, peripheral vascular disease and a chronically infected left heel pressure ulcer. She is a shelter resident. Wound cultures from 11/17/2024 was positive for Proteus Mirabella's and MRSA and Pseudomonas aeruginosa and Klebsiella. Her initial blood culture was also positive for MRSA. ID is on the case and the patient remains on a combination IV cefepime and daptomycin. Clinically stable. Hemodynamically stable. She is on oxygen at 2 L/min nasal cannula. No sign of any significant respiratory distress. No chest pain. No cough or sputum production. No nausea or emesis. No abdominal pain. The repeat blood cultures have been negative. In terms of her blood work, the patient's creatinine is down to 1.5 with a BUN of 95. Sodium is at 137 and potassium level is at 4.9 and those labs are from yesterday. No new labs are available from today. She is on Lantus insulin 5 units twice daily and NovoLog sliding scale coverage. She is also on aspirin. No other significant events overnight. On today's evaluation of 12/01/2024, the patient is being seen for a follow-up. The patient is essentially stable. A repeat chest x-ray was done this morning and the chest x-ray is showing cardiomegaly and pulm vascular congestion. Otherwise, no other acute abnormalities. The patient is resting comfortably in bed and she is on 2 L of oxygen by nasal cannula with a pulse ox of 97%. She remains on IV cefepime and daptomycin. She remains on Lantus insulin 5 units twice daily and NovoLog/scale coverage. She remains on Toprol-XL 12.5 mg p.o. daily. She is quite weak and debilitated. She is afebrile. No other sig nificant events overnight. As mentioned, the patient has history of dementia, diabetes mellitus type 2 and a chronically infected left he is ulcer for which the patient receiving antibiotics. The patient also has coronary artery disease. The wound culture from 11/17/2024 from the left heel was essentially multi bacterial. The creatinine is improved compared to yesterday. Objective - Vital Signs Vital signs: Vital Signs Temp 97.5 F L 12/01/24 07:21 Pulse 98 12/01/24 09:51 Resp 20 12/01/24 11:00 BP 144/62 12/01/24 09:51 Pulse Ox 97 12/01/24 09:51 FiO2 Intake & Output 11/30/24 12/01/24 12/01/24 18:59 06:59 18:59 Output Total 250 300 Balance -250 -300 Weight 68 kg 66 kg Output: Urine 250 300 Other: Voiding Method External Catheter External Catheter External Catheter # Voids 1 1 # Bowel Movements 1 - Exam GENERAL EXAM: Revealed 84-year-old female in no distress on 2 L nasal cannula HEAD: Normocephalic and atraumatic EYES: Normal reaction of pupils, equal size. NOSE: Clear with pink turbinates. THROAT: No erythema or exudates. NECK: No masses, no JVD. CHEST: No chest wall deformity. Left chest implanted AICD/pacemaker generator. Remote appearing sternotomy incision. LUNGS: Crackles in the bases no rhonchi no wheezes CVS: S1 and S2 normal with no audible murmur, regular rhythm. No extra heart sounds ABDOMEN: No hepatosplenomegaly, active bowel sounds, no guarding or rigidity. SKIN: Multiple skin lesions as noted below CENTRAL NERVOUS SYSTEM: Arousable, seems to be a bit more confused today. Other mills no gross focal deficit EXTREMITIES: There is mild nonpitting lower extremity edema bilaterally. Left heel wound dressed with new dressing. No clubbing or cyanosis. Peripheral pulses are intact. - Labs CBC & Chem 7: 11/28/24 03:02 12/01/24 03:25 Labs: Abnormal Lab Results - Last 24 Hours (Table) 11/30/24 11/30/24 11/30/24 Range/Units 11:47 16:55 20:36 Anion Gap (4.00-12.00) mmol/L BUN (9.0-27.0) mg/dL Est GFR (CKD-EPI) (>=60) BUN/Creatinine Ratio (12.00-20.00) Ratio Glucose (70-110) mg/dL POC Glucose (mg/dL) 112 H 128 H 164 H (70-110) mg/dL 12/01/24 12/01/24 Range/Units 03:25 06:05 Anion Gap 13.30 H (4.00-12.00) mmol/L BUN 70.9 H (9.0-27.0) mg/dL Est GFR (CKD-EPI) 45 L (>=60) BUN/Creatinine Ratio 59.08 H (12.00-20.00) Ratio Glucose 141 H (70-110) mg/dL POC Glucose (mg/dL) 140 H (70-110) mg/dL Assessment and Plan Plan: Sepsis, with septic shock, with MRSA septicemia, hemodynamically stable on no pressors and the patient remains on a combination of cefepime and daptomycin. No signs of any hemodynamic instability. Clinically stable. Chronic left leg/heel wound, with multiple bacteria, including Pseudomonas, Proteus, MRSA and the patient had bacteremia with MRSA at the time of admission Suspected vertebral osteomyelitis Chronic CHF with cardiomyopathy, with an ejection fraction of 30 to 35%, and evidence of valvular heart disease.The patient has ischemic cardiomyopathy with an ejection fraction of 30 to 85% and mild to moderate mitral regurgitation and moderate aortic regurgitation with mild to moderate tricuspid regurgitation and moderate pulmonary hypertension. The patient also has severe hypokinesis involving the anteroseptal and the apical septal portion. This is based on an echocardiogram done on 08/04/2024. Group 2 pulmonary hypertension. Coronary artery disease status post acute non-ST segment elevation myocardial infarction. Status post AICD/pacemaker implantation. History of CAD with previous CABG. Hypertension. Hyperlipidemia. Type 2 diabetes mellitus. Acute kidney injury, improving Hyperkalemia. History of RSV tracheobronchitis, July 2024. Chronic normocytic/normochromic anemia. History of dementia. Plan: Clinically stable on 2 L of oxygen by nasal cannula Repeat chest x-ray shows cardiomegaly and mild pulm vessel congestion. Nevertheless, respiratory status is stable Patient continues to be on a combination of cefepime and vancomycin Patient had acute kidney injury secondary to ATN/hypotension and a creatinine peaked at 2.0 during this current admission and is currently down to 1.2. No evidence of an hydronephrosis ID is on the case, awaiting a PICC line insertion. Patient has a destructive C3-C4 lesion with questionable discitis/osteomyelitis and she is considered to be high risk for any surgical exploration. The patient will need long-term antibiotics and the patient will continue daptomycin and cefepime for now per IDs recommendation.
[2024-12-01 14:52] VITALS: RESP 14; TEMP 97.8
--- NOTE | 2024-12-01 15:39 | P.PN ---
Subjective Progress Note Date: 11/30/24 Principal diagnosis: Reason for follow-up is left heel infected pressure ulcer and bacteremia Patient is a 84-year-old female with a past medical history significant for Coronary Artery Disease (CAD), Heart Failure, Dementia, Diabetes Mellitus, Hypertension, Myocardial Infarction ([place]), Pneumonia, Vascular Disorder, history of left heel infected pressure ulcer and [facility] resident patient has been [facility] the [facility] as the patient was having mental status changes fever and elevated white count. On today's evaluation that is 11/30/2024, patient has been afebrile, patient is breathing comfortably and is currently on 2 L nasal oxygen, patient sleepy but arousable denies any chest pain no cough no abdominal pain no diarrhea. No new lab has been obtained today blood culture repeat has been negative Objective - Vital Signs Vital signs: Vital Signs Temp 97.8 F 11/30/24 07:30 Pulse 94 11/30/24 09:20 Resp 18 11/30/24 09:20 BP 114/65 11/30/24 07:30 Pulse Ox 100 11/30/24 07:30 FiO2 Intake & Output 11/29/24 11/30/24 11/30/24 18:59 06:59 18:59 Intake Total 0 Output Total 500 Balance -500 0 Intake: Oral 0 Output: Urine 500 Other: Voiding Method External Catheter External Catheter External Catheter # Voids 2 - Exam GENERAL DESCRIPTION: An elderly female lying in bed in no distress RESPIRATORY SYSTEM: Unlabored breathing , decreased breath sounds at bases HEART: S1 S2 regular rate and rhythm , ABDOMEN: Soft , no tenderness EXTREMITIES: Left wound is currently dressed - Labs CBC & Chem 7: 11/28/24 03:02 12/01/24 03:25 Labs: Abnormal Lab Results - Last 24 Hours (Table) 11/29/24 11/29/24 11/30/24 Range/Units 16:44 20:17 06:04 POC Glucose (mg/dL) 299 H 174 H 334 H (70-110) mg/dL 11/30/24 Range/Units 11:47 POC Glucose (mg/dL) 112 H (70-110) mg/dL Assessment and Plan (1) Non healing left heel wound Current Visit: Yes Status: Acute Code(s): S91.302A - UNSPECIFIED OPEN WOUND, LEFT FOOT, INITIAL ENCOUNTER SNOMED Code(s): 075484489 (2) Septic shock Current Visit: Yes Status: Acute Code(s): A41.9 - SEPSIS, UNSPECIFIED ORGANISM; R65.21 - SEVERE SEPSIS WITH SEPTIC SHOCK SNOMED Code(s): 54817778 (3) Urinary tract infection Current Visit: Yes Status: Acute Code(s): N39.0 - URINARY TRACT INFECTION, SITE NOT SPECIFIED SNOMED Code(s): 41950524 (4) Bacteremia Current Visit: Yes Status: Acute Code(s): R78.81 - BACTEREMIA SNOMED Code(s): 7830239 (5) Vertebral osteomyelitis Current Visit: Yes Status: Acute Code(s): M46.20 - OSTEOMYELITIS OF V ERTEBRA, SITE UNSPECIFIED SNOMED Code(s): 426993419 Plan: 1patient presented hospital with sepsis in this patient who did have fever tachycardia tachypnea hypotension elevated white count meeting criteria for SIRS source is likely urinary as the patient has significantly positive UA plus minus infected left heel pressure ulcer with a previous history of MRSA infection to the left heel 2-sulfa allergy 3-blood cultures currently growing MRSA left heel culture currently growing MRSA's Proteus and Pseudomonas 4patient also have a destructive changes at C3-C4 with a question of possible discitis/osteomyelitis patient is concerned to be high surgical risk for surgery orthopedics is on standby 5-patient is afebrile patient repeat blood culture so far negative 6patient did have PICC line placement, currently being treated with the dapt omycin and cefepime and monitor clinical course closely Dictation was produced using [employer] dictation software. please excuse any grammatical, word or spelling errors. Time with Patient: Less than 30
--- NOTE | 2024-12-01 15:40 | P.PN ---
Subjective Progress Note Date: 12/01/24 Principal diagnosis: Reason for follow-up is left heel infected pressure ulcer and bacteremia Patient is a 84-year-old female with a past medical history significant for Coronary Artery Disease (CAD), Heart Failure, Dementia, Diabetes Mellitus, Hypertension, Myocardial Infarction ([place]), Pneumonia, Vascular Disorder, history of left heel infected pressure ulcer and residential resident patient has been sent to the from the residential as the patient was having mental status changes fever and elevated white count. On today's evaluation that is 12/01/2024, Patient is afebrile this morning patient was sleepy but arousable denies having any chest pain shortness of breath or cough no vomiting or diarrhea has been reported patient is currently on 2 L nasal oxygen. Patient did have a creatinine 1.2 no CBC was done blood culture repeat has been negative Objective - Vital Signs Vital signs: Vital Signs Temp 97.8 F 12/01/24 14:17 Pulse 93 12/01/24 14:17 Resp 14 12/01/24 14:17 BP 123/71 12/01/24 14:17 Pulse Ox 98 12/01/24 14:17 FiO2 Intake & Output 11/30/24 12/01/24 12/01/24 18:59 06:59 18:59 Output Total 250 300 Balance -250 -300 Weight 68 kg 66 kg Output: Urine 250 300 Other: Voiding Method External Catheter External Catheter External Catheter # Voids 1 1 # Bowel Movements 1 - Exam GENERAL DESCRIPTION: An elderly female lying in bed in no distress RESPIRATORY SYSTEM: Unlabored breathing , decreased breath sounds at bases HEART: S1 S2 regular rate and rhythm , ABDOMEN: Soft , no tenderness EXTREMITIES: Left wound is currently dressed - Labs CBC & Chem 7: 11/28/24 03:02 12/01/24 03:25 Labs: Abnormal Lab Results - Last 24 Hours (Table) 11/30/24 11/30/24 12/01/24 Range/Units 16:55 20:36 03:25 Anion Gap 13.30 H (4.00-12.00) mmol/L BUN 70.9 H (9.0-27.0) mg/dL Est GFR (CKD-EPI) 45 L (>=60) BUN/Creatinine Ratio 59.08 H (12.00-20.00) Ratio Glucose 141 H (70-110) mg/dL POC Glucose (mg/dL) 128 H 164 H (70-110) mg/dL 12/01/24 12/01/24 Range/Units 06:05 11:53 Anion Gap (4.00-12.00) mmol/L BUN (9.0-27.0) mg/dL Est GFR (CKD-EPI) (>=60) BUN/Creatinine Ratio (12.00-20.00) Ratio Glucose (70-110) mg/dL POC Glucose (mg/dL) 140 H 153 H (70-110) mg/dL Assessment and Plan (1) Non healing left heel wound Current Visit: Yes Status: Acute Code(s): S91.302A - UNSPECIFIED OPEN WOUND, LEFT FOOT, INITIAL ENCOUNTER SNOMED Code(s): 101021518 (2) Septic shock Current Visit: Yes Status: Acute Code(s): A41.9 - SEPSIS, UNSPECIFIED ORGANISM; R65.21 - SEVERE SEPSIS WITH SEPTIC SHOCK SNOMED Code(s): 02471317 (3) Urinary tract infection Current Visit: Yes Status: Acute Code(s): N39.0 - URINARY TRACT INFECTION, SITE NOT SPECIFIED SNOMED Code(s): 34475190 (4) Bacteremia Current Visit: Yes Status: Acute Code(s): R78.81 - BACTEREMIA SNOMED Code(s): 0208109 (5) Vertebral osteomyelitis Current Visit: Yes Status: Acute Code(s): M46.20 - OSTEOMYELITIS OF VERTEBRA, SITE UNSPECIFIED SNOMED Code(s): 393633189 Plan: 1patient presented hospital with sepsis in this patient who did have fever tachycardia tachypnea hypotension elevated white count meeting criteria for SIRS source is likely urinary as the patient has significantly positive UA plus minus infected left heel pressure ulcer with a previous history of MRSA infection to the left heel 2-sulfa allergy 3-blood cultures currently growing MRSA left heel culture currently growing MRSA's Proteus and Pseudomonas 4patient also have a destructive changes at C3-C4 with a question of possible discitis/osteomyelitis patient is concerned to be high surgical risk for surgery orthopedics is on standby 5-patient is afebrile patient repeat blood culture so far negative 6patient did have PICC line placement, currently being treated with the daptomycin and cefepime however per discussion with nursing staff family is considering hospice which may be appropriate in that case antibiotics can be safe to discontinue Dictation was produced using [employer] dictation software. please excuse any grammatical, word or spelling errors. Time with Patient: Less than 30
[2024-12-01 16:53] VITALS: BP 103/61; PULSE 77
[2024-12-01 16:55] LABS: Glucose,Whole Blood 185 mg/dL (70-110)
--- NOTE | 2024-12-02 05:21 | P.DS ---
Providers Date of admission: 11/17/24 13:14 Expected date of discharge: 12/01/24 Attending physician: Debi Núñez Consults: 11/17/24 13:08 Consult Physician Stat Consulting Provider: Antione Orozco Consult Reason/Comments: Critical care management Do you want consulting provider notified?: Yes Consult Physician Urgent Consulting Provider: [facility] Consult Reason/Comments: NSTEMI Do you want consulting provider notified?: Yes Consult Physician Urgent Consulting Provider: Kate Oliver Consult Reason/Comments: Septic shock, heel wound Do you want consulting provider notified?: Yes 11/18/24 11:26 Consult Physician Urgent Consulting Provider: Tom Quiñonez Consult Reason/Comments: cerv pain, abnormal ct of the neck Do you want consulting provider notified?: Yes 11/26/24 17:36 Consult Physician Routine Consulting Provider: Krysta Huang Consult Reason/Comments: PICC line clearance; low GFR Do you want consulting provider notified?: Yes Primary care physician: Faraz Loza Hospital Course: Final diagnosis Severe sepsis, status post septic shock, secondary to infection from the left leg wounds, vertebral osteomyelitis, unknown whether patient actually had UTI on admission and pain repeat cultures are negative Acute febrile illness, with bacteremia noted on 11/17/2024, 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, Pseudomonas aeruginosa, Proteus MirabellisHistory of MRSA bacteremia, SILVIANO done on 08/10/2024 did not show any vegetation Acute non-ST elevation ME Ischemic cardiomyopathy low ejection fraction, remains on Lasix Acute kidney injury History of implanted AICD/pacemaker History of coronary artery disease with previous CABG History of hypertension History of hyperlipidemia Diabetes mellitus, type II Acute kidney injury Hyperkalemia History of RSV tracheobronchitis July, Chronic normocytic, normochromic anemia Dementia Discharge disposition Patient is being discharged in a stable condition with guarded prognosis to [facility] with hospice services. Patient will follow-up with Dr. Loza in the outpatient setting upon discharge. Total time taken is greater than 35 minutes. Hospital course Patient is 84-year-old female sent in by EMS from her [facility], [facility], after being noted to be confused, lethargic, with low blood pressures. She was tachycardic with a temperature of 100.8 F. Concerns for sepsis. On arrival, she was hypotensive, fluid resuscitated with a total of 3 L crystalloid fluid. Norepinephrine was started as the blood pressure did not respond to fluid alone. Started on a combination of cefepime and vancomycin for broad-spectrum antibiotic coverage. Serial troponins were elevated, and patient was also diagnosed with acute non-ST elevation ME and started on IV heparin per protocol. 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 Of note, had a recent hospitalization back in [facility]20[facility] for sepsis and CHF exacerbation. MRSA was isolated in her blood. SILVIANO done on 08/10/2024 did not show any vegetation. There was a severely reduced left ventricular ejection fraction of 30 to 35%, moderate mitral and tricuspid regurgitation with severe pulmonary hypertension. Mild to moderate aortic regurgitation. Treated with IV antibiotics. She also has history of ischemic cardiomyopathy, biventricular AICD, previous CABG, hypertension, hyperlipidemia, diabetes mellitus type 2, dementia, among other debilitating comorbidities. Workup in the emergency department including chest x-ray showing stable pulmonary vascular congestion with scattered infiltrates and small effusions suggestive of congestive heart failure. X-ray left foot with soft tissue wound over the heel without evidence of osseous erosion. Urinalysis was positive for pyuria and bacteria. CBC with a WBC count of 13.4, hemoglobin 9.3, platelets 439. CMP: Sodium 132, potassium 5.7, chloride 98, serum bicarb 21, BUN 76, creatinine 1.35, glucose 219. LFTs mildly elevated. Troponins elevated at 1.11, 2.2, 4.3, and 5.5 respectively. EKG showing a ventricularly paced rhythm. IV heparin continues per protocol. VBG with a pCO2 of 39 and pH of 7.38. Viral 4 Plex negative for influenza A/B, RSV, COVID of note, on her previous hospitalization in July was positive for RSV. Currently, patient is being observed in the intensive care unit. She is currently awake and alert. She is oriented to self and place. Does not recall events prior to coming to the hospital. I am told this could be her baseline. She does have dementia and takes Aricept at the [facility]. Denies any chest pain. IV heparin continues per protocol. Blood pressure is being supported with norepinephrine which is infusing at 0.04 mcg/kg/min. Previously febrile with a Tmax of 101.9 F, and this is down and currently normothermic. Urinary catheter was placed which is draining clear urine. Normal saline to be started at 50 mL/h. pancultures are pending. Patient previously complaining of neck pain, however, denies this to me. She has a CT of the neck and chest ordered. No respiratory distress or stridor 11/21. Patient seen and examined.Labs reviewed showing WBC 9.03, hemoglobin 9, platelet count 428, sodium 137, potassium 4.4, BUN 78, creatinine 1.25. Currently on IV Levophed which is being weaned down. Currently on IV cefepime, daptomycin and Lasix drip. Complaining of leg pain. 11/22/2024 Patient remains on norepinephrine. Chest x-ray from yesterday showed interstitial edema no x-ray was done today. Patient audelia on IV Lasix drip. White count continues to improve and improved to 11 from 12 creatinine remained stable at 1.2. Patient is having good urine output 11/23 Patient currently in 368 She is awake but drowsy also she is confused cannot contribute much to the history this morning, probably also part of her delirium Patient herself denies any specific complaints Patient remains tachycardic with heart rate jumps to 103, blood pressure 102/60. Patient is afebrile and breathing at a rate of 18 to 20/min Labs reviewed, patient has stable leukocytosis 11.3 and hemoglobin 8.6 Creatinine 1.24, which is stable since admission compared to baseline 0.8-1.0 Patient remains on IV cefepime and daptomycin and Lasix drip 11/24 Patient still very lethargic and tired Somewhat tachypneic Dressing in the left leg is in place with some oozing Daughter at bedside Patient supposedly still getting IV Lasix 10 mg/h and broad-spectrum antibiotic with cefepime and daptomycin 11/25 Since merchandising consultant I got a message that 3 daughters want others . To have a hospice consult When I went to see the patient 3 daughters were at bedside. Patient was awake alert looks slightly better still confused but she can answer questions she is very tired. Still mildly tachypneic at rest. She is not getting IV Lasix anymore still on IV antibiotics. Family request to switch to oral antibiotics and discharge her soon. physician practice manager on the case. 11/26 Patient awake and alert, generally weak, slightly better every day She follows command mentation also at baseline She still mildly tachypneic she is making good urine output on oral Lasix 4 mg twice daily Denies any other new complaint I discussed the case with cardiology team who cleared the patient for discharge Also she is on broad-spectrum antibiotics with plan to place PICC line/midline and possible discharge tomorrow on IV antibiotics. Per ID team recommendation Discussed with staff. Possible discharge 24 to 48 hours 11/27 Patient still lethargic and somewhat confused and drowsy, she opens her eyes to verbal stimuli's and answer some questions and follow some commands but go back to sleep She is mildly tachypneic but breathing looks better than 2 to 3 days ago Patient complains from constipation and stool softeners provided as well as laxative Patient require PICC line for IV antibiotics upon discharge, nephrology consult was obtained for PICC line clearance. Patient was found to have acute kidney injury with creatinine went up 1.2 up to 1.7. Potassium 5.8. Patient received 1 dose of Lokelma, TIM inhibitor was held as well as Toradol. Will continue monitoring. Patient continued on Lasix. Patient may benefit from ECF upon discharge. Prognosis guarded Daughter at bedside informed me they do not want hospice discussed with the daughters and the family caseworker for palliative consult as an outpatient and they agreeable. Also family would consider palliative in case she deteriorate to move to hospice as per my discussion with the daughter today. 11/28 patient still confused, she is getting worse over the last 2 days, she is not eating well, tachypneic and constipated I discussed the case with both daughter they are still considering hospice might be appropriate but they given her a chance to on Saturday PICC line is planned on Saturday for outpatient IV antibiotic. Daughter aware of this plan and they are agreeable 11/30/2024 Patient is seen in follow-up today with no significant change other than patient is not eating very much with no real appetite. Family at the bedside would like the patient to return to [facility] for continued PT/OT therapy as well as IV antibiotics as patient has been staying there. Patient is awaiting to receive a PICC line and per nursing staff they are shortstaffed and unsure if they can get to it today. Will await PICC line as plan is to return to [facility] on continued antibiotic therapy per infectious disease recommendations.. 12/01/2024 Patient is seen and evaluated this morning appears more congested with dyspnea and is not eating and is extremely lethargic and somewhat obtunded. Lengthy discussion was had with family about overall condition and treatment plan moving forward and they are now discussingwith comfort measures. Patient will be returning to [facility] with hospice services which is being arranged. Patient was given a dose of Lasix as patient was noted to have some upper bronchial congestion and crackles noted. Patient will be returning to [facility] today and overall prognosis is poor. Physical exam: GENERAL: The patient is asleep, minimally arousable and fatigues easily, confused and drowsy, not in any acute distress. Well developed, chronically ill- appearing. Obese HEENT: Pupils are round and equally reacting to light. EOMI. No scleral icterus. No conjunctival pallor. Normocephalic, atraumatic. No pharyngeal erythema. No thyromegaly. CARDIOVASCULAR: S1 and S2 muffled PULMONARY: Upper bronchial congestion noted with some crackles at the bases, no accessory muscle use noted ABDOMEN: Soft, nontender, nondistended, normoactive bowel sounds. No palpable organomegaly. MUSCULOSKELETAL: No joint swelling or deformity. EXTREMITIES: No cyanosis, clubbing, or pedal edema. NEUROLOGICAL: Gross neurological examination did not reveal any focal deficits. Diffusely weak SKIN: No rashes. no petechiae. The impression and plan of care has been dictated by Damaris Sinha, Nurse Practitioner as directed. Dr. Heath MD I have performed a history and examination and MDM of this patient, discussed the same with the dictator, and agree with the dictator's assessment and plan as written ,documented as a scribe. Based on total visit time, I have performed more than 50% of the visit. Patient Condition at Discharge: Poor Plan - Discharge Summary Discharge Rx Participant: No New Discharge Prescriptions: New HYDROcodone/APAP 5-325MG [[place] 5-325] 1 each PO Q6HR PRN #6 tab PRN Reason: Pain 4-6 Metoprolol Succinate (ER) [Toprol XL] 12.5 mg PO DAILY tab Aspirin 81 mg PO DAILY tab Docusate [Colace] 100 mg PO BID cap INSULIN LISPRO (HumaLOG) [HumaLOG] 0 unit SQ ACHS each Insulin Glargine (Lantus) [Lantus Vial] 5 unit SQ BID@0700,2100 each Nystatin 100,000 Unit/gm Powd [Mycostatin Powder] 1 applic TOPICAL BID each Acetaminophen Tab [Tylenol] 650 mg PO Q4HR PRN tab PRN Reason: Fever And/Or Mild Pain Continue Donepezil [Aricept] 10 mg PO HS@2100 Benzocaine/Menthol [Dermoplast Pain Relieving Omao] 1 spray TOPICAL BID PRN PRN Reason: LEFT LEG WOUND PAIN bisacodyL [Dulcolax] 10 mg RECTAL DAILY PRN PRN Reason: Constipation Famotidine [Pepcid] 20 mg PO DAILY@0800 L.acidoph,Paracasei, B.lactis [Probiotic] 1 cap PO DAILY@0800 Melatonin 3 mg PO DAILY PRN PRN Reason: Insomnia Furosemide [Lasix] 40 mg PO DAILY@0800 Eucerin Advanced Repair Cream 1 applic TOPICAL DAILY Insulin Degludec [Tresiba Flextouch U-100 Pen] 20 units SQ HS@2130 Liquacel 30 ml PO DAILY@0800 Mylanta Double Strength [id number]/5ml 10 ml PO Q4H PRN PRN Reason: Indigestion Loperamide [Imodium] 2 mg PO Q6H PRN PRN Reason: Loose Stool Magnesium Hydroxide [Milk of Magnesia Concentrate] 7,200 mg PO Q2D PRN PRN Reason: Constipation Semaglutide [Ozempic] 0.25 mg SQ WE@2130 Collagenase [Santyl Ointment] 1 applic TOPICAL DAILY Ondansetron [Zofran] 4 mg PO TID PRN PRN Reason: Nausea Empagliflozin [Jardiance] 10 mg PO DAILY@0800 Lidocaine 5% Cream 1 applic TOPICAL WE PRN PRN Reason: pain with wound care Ipratropium-Albuterol Nebulize [Duoneb 0.5 mg-3 mg/3 ml Soln] 3 ml INHALATION RT-Q4H PRN each PRN Reason: Wheezing Albuterol Nebulized [Ventolin Nebulized] 2.5 mg INHALATION RT-TID PRN ml PRN Reason: Shortness Of Breath Or Wheezing Lidocaine 5% Cream 1 applic TOPICAL DAILY PRN PRN Reason: wound area pain Changed ALPRAZolam [Xanax] 0.25 mg PO BID PRN #4 tab PRN Reason: Anxiety Discontinued Aspirin EC [Ecotrin Low Dose] 81 mg PO DAILY@0800 INSULIN ASPART (NovoLOG) [NovoLOG (formulary)] 3 unit SQ BID@1100,1700 Spironolactone [Aldactone] 12.5 mg PO DAILY@0800 HYDROcodone/APAP 5-325MG [[place] 5-325] 1 tab PO BID@0800,1700 carvediloL [Coreg] 6.25 mg PO BID@0800,1700 Atorvastatin [Lipitor] 40 mg PO HS@2100 Folic Acid 0.4 mg PO DAILY@0800 INSULIN ASPART (NovoLOG) [NovoLOG (formulary)] See Protocol SQ ACHS Lactulose 10 gm PO BID@0800,1700 Multivitamins, Thera [Multivitamin (formulary)] 1 tab PO DAILY@1700 Patiromer Calcium Sorbitex [Veltassa] 8.4 gm PO TH@1200 Vashe Wound Cleanser 1 applic TOPICAL DAILY PRN PRN Reason: LLE for wound care HYDROcodone/APAP 5-325MG [[place] 5-325] 1 tab PO Q24H PRN PRN Reason: Breakthrough Pain Hydrophilic Cream [Triad (Kerodex geq)] 1 applic TOPICAL TID Magnesium Oxide 400 mg PO DAILY@0800 Isosorbide Mononitrate ER [Imdur] 30 mg PO DAILY@0800 Acetaminophen Tab [Tylenol] 650 mg PO Q6HR PRN tab PRN Reason: Mild Pain Or Fever > 100.5 Emmanuel Packet 1 packet PO BID@0800,1700 Sacubitril/Valsartan [Entresto 24 mg-26 mg Tablet] 1 tab PO BID@0800,1700 allopurinoL [Zyloprim] 100 mg PO DAILY@0800 Cholecalciferol (Vitamin D3) [Vitamin D3 (50 Mcg = 2000 Iu)] 100 mcg PO DAILY@0800 Vashe Wound Cleanser 1 applic TOPICAL MOWEFR Ascorbic Acid [Vitamin C] 250 mg PO DAILY@0800 Discharge Medication List Donepezil [Aricept] 10 mg PO HS@2100 03/14/21 [History] Benzocaine/Menthol [Dermoplast Pain Relieving Omao] 1 spray TOPICAL BID PRN 04/16/21 [History] Famotidine [Pepcid] 20 mg PO DAILY@0800 05/07/21 [History] L.acidoph,Paracasei, B.lactis [Probiotic] 1 cap PO DAILY@0800 05/07/21 [History] Melatonin 3 mg PO DAILY PRN 05/07/21 [History] Ondansetron [Zofran] 4 mg PO TID PRN 05/07/21 [History] bisacodyL [Dulcolax] 10 mg RECTAL DAILY PRN 05/07/21 [History] Empagliflozin [Jardiance] 10 mg PO DAILY@0810/23/21 [History] Furosemide [Lasix] 40 mg PO DAILY@0810/23/21 [History] Eucerin Advanced Repair Cream 1 applic TOPICAL DAILY 08/03/24 [History] Insulin Degludec [Tresiba Flextouch U-100 Pen] 20 units SQ HS@212908/03/24 [History] Lidocaine 5% Cream 1 applic TOPICAL WE PRN 08/03/24 [History] Liquacel 30 ml PO DAILY@0808/03/24 [History] Loperamide [Imodium] 2 mg PO Q6H PRN 08/03/24 [History] Magnesium Hydroxide [Milk of Magnesia Concentrate] 7,200 mg PO Q2D PRN 08/03/24 [History] Mylanta Double Strength [id number]/5ml 10 ml PO Q4H PRN 08/03/24 [History] Semaglutide [Ozempic] 0.25 mg SQ WE@212908/03/24 [History] Albuterol Nebulized [Ventolin Nebulized] 2.5 mg INHALATION RT-TID PRN ml 08/13/24 [Rx] Ipratropium-Albuterol Nebulize [Duoneb 0.5 mg-3 mg/3 ml Soln] 3 ml INHALATION RT-Q4H PRN each 08/13/24 [Rx] Collagenase [Santyl Ointment] 1 applic TOPICAL DAILY 11/17/24 [History] Lidocaine 5% Cream 1 applic TOPICAL DAILY PRN 11/17/24 [History] ALPRAZolam [Xanax] 0.25 mg PO BID PRN #4 tab 12/01/24 [Rx] Acetaminophen Tab [Tylenol] 650 mg PO Q4HR PRN tab 12/01/24 [Rx] Aspirin 81 mg PO DAILY tab 12/01/24 [Rx] Docusate [Colace] 100 mg PO BID cap 12/01/24 [Rx] HYDROcodone/APAP 5-325MG [[place] 5-325] 1 each PO Q6HR PRN #6 tab 12/01/24 [Rx] INSULIN LISPRO (HumaLOG) [HumaLOG] 0 unit SQ ACHS each 12/01/24 [Rx] Insulin Glargine (Lantus) [Lantus Vial] 5 unit SQ BID@0700,2100 each 12/01/24 [Rx] Metoprolol Succinate (ER) [Toprol XL] 12.5 mg PO DAILY tab 12/01/24 [Rx] Nystatin 100,000 Unit/gm Powd [Mycostatin Powder] 1 applic TOPICAL BID each 12/01/24 [Rx] Follow up Appointment(s)/Referral(s): Faraz Loza MD [Primary Care Provider] - 1-[address] [facility] [NON-STAFF] - 1 Week [facility] [NON-STAFF] - 1 Week Activity/Diet/Wound Care/Special Instructions: Patient will be going to [facility] with hospice Discharge Disposition: TRANSFER TO SNF/ECF
== END 2024-12-01 18:20 | DRG 871 ==
LOC: EC 08:04 → 2SICU 13:14 → 3SCARD 11-22 18:43 → 4SSUR 11-27 01:49
PROVIDERS: ADMIT Hospitalist; ATTEND Hospitalist
PROC: 3E033XZ Introduction of Vasopressor into Peripheral Vein, Percutaneous Approach (ICD-10-PCS; 2024-11-17)
PROC: 02HV33Z Insertion of Infusion Device into Superior Vena Cava, Percutaneous Approach (ICD-10-PCS; principal; 2024-11-30 10:10)
PROC: 4A02X4A Measurement of Cardiac Electrical Activity, Guidance, External Approach (ICD-10-PCS; principal; 2024-11-30 10:10)
DX: A41.02 Sepsis due to Methicillin resistant Staphylococcus aureus (principal); I21.4 Non-ST elevation (NSTEMI) myocardial infarction; L89.623 Pressure ulcer of left heel, stage 3; N17.0 Acute kidney failure with tubular necrosis; R65.21 Severe sepsis with septic shock; J96.91 Respiratory failure, unspecified with hypoxia; M46.22 Osteomyelitis of vertebra, cervical region; I11.0 Hypertensive heart disease with heart failure; I27.20 Pulmonary hypertension, unspecified; Z66 Do not resuscitate; F03.90 Unspecified dementia, unspecified severity, without behavioral disturbance, psychotic disturbance, mood disturbance, and anxiety; E11.69 Type 2 diabetes mellitus with other specified complication; D64.9 Anemia, unspecified; I08.3 Combined rheumatic disorders of mitral, aortic and tricuspid valves; I50.22 Chronic systolic (congestive) heart failure; E87.20 Acidosis, unspecified; N39.0 Urinary tract infection, site not specified; L03.116 Cellulitis of left lower limb; Z79.4 Long term (current) use of insulin; E11.41 Type 2 diabetes mellitus with diabetic mononeuropathy; I25.5 Ischemic cardiomyopathy; E78.5 Hyperlipidemia, unspecified; E87.5 Hyperkalemia; I25.10 Atherosclerotic heart disease of native coronary artery without angina pectoris; K59.00 Constipation, unspecified; M47.812 Spondylosis without myelopathy or radiculopathy, cervical region; M95.4 Acquired deformity of chest and rib; Z96.651 Presence of right artificial knee joint; Z95.1 Presence of aortocoronary bypass graft; I25.2 Old myocardial infarction; Z88.2 Allergy status to sulfonamides; Z79.82 Long term (current) use of aspirin; Z79.84 Long term (current) use of oral hypoglycemic drugs; Z79.899 Other long term (current) drug therapy; Z86.14 Personal history of Methicillin resistant Staphylococcus aureus infection; Z86.73 Personal history of transient ischemic attack (TIA), and cerebral infarction without residual deficits; Z95.5 Presence of coronary angioplasty implant and graft; Z95.810 Presence of automatic (implantable) cardiac defibrillator
CPT/HCPCS: 36415; 36573; 51702; 70450; 70490; 71045; 71046; 71250; 80048; 80053; 80076; 80202; 80306; 81001; 82565; 82803; 83036; 83605; 83735; 83880; 84484; 85025; 85027; 85379; 85610; 85730; 86850; 86900; 86901; 87040; 87070; 87077; 87086; 87186; 87205; 87636; 93005; 93308; 93970; 94760; 96361; 96365; 96366; 96367; 96368; 96375; 99291